=== PATIENT | male | born 1935 | race Caucasian/White ===

== ENCOUNTER 2017-04-29 07:17 | Observation (INO) | payer OTHER ==
[2017-04-29] VITALS (7 sets, daily range): BP systolic 95–169; BP diastolic 58–97; PULSE 57–62; TEMP 36.4–36.9; O2SAT 96–100; Ht 185.4 cm; Wt 103.2 kg
[~2017-04-29] VITALS: Ht 185.4 cm; Wt 103.2 kg
[~2017-04-29 07:17] MED LIST: ACET325T96 PO; ASPCH81X PO; ATEN-173 PO; CEPH500C2 PO; FOLBEE PLUS PO; LEVO1TAB34 PO; LISI-729 PO; LPT10 PO; LSN5 PO; NITR0.4S UT; NSP500 PO; NTRO1 EXT; NTRSLP4 SL; PRT40 PO; TNR25 PO; TYL325X PO; WARF5TAB90 PO; ZFRI4 IV; [UNRECOGNIZED DRUG - CODE] IV
[2017-04-29] MEDS ORDERED: ASPIRIN 81 MG CHEW PO STA (07:36)
[2017-04-29] MEDS ORDERED: NITROGLYCERIN 0.4 MG SL PER TAB CHARGE SL PRN ×2 (07:45→10:30)
--- NOTE | 2017-04-29 07:46 | EMERGENCY ROOM VISIT NOTE ---
History Report prepared by Steve: Marta Varela Under the Supervision of: Dr. Christ Schuler M.D. First contact with patient: 07:31 Chief Complaint: CARDIAC ASSESSMENT Stated Complaint: CHEST DISCOMFORT INTO NECK,SWELLING IN LFT THUMB History of Present Illness The patient is an 82 year old male who presents to the Emergency Room with complaints of persistent right sided chest pain that began one week ago that worsened last evening. He currently rates his discomfort as a 6/10 in severity. The patient reports a history of cardiac disease, noting that he has had multiple arteries stented as well as bypass surgery. He denies any previous SD. The patient states that his pain today radiates into his left neck and left jaw. He states that he took nitroglycerin for his discomfort this morning. The patient states that he takes 81 mg of aspirin daily. He denies any abdominal pain. The patient reports a history of diabetes. He denies any worsened pain with compression of his chest. The patient states that he is on Warfarin. The patient reports that 5 weeks and 3 weeks ago he had carpal tunnel surgery done on each of his hands. He states that he was off his Warfarin at those times, but states that he has now been back on the medication. The patient denies taking any of his medications this morning prior to arrival. Source of History: patient Onset: one week ago Position: chest (left) Symptom Intensity: 6/10 Timing: worsening, other (persistent) Associated Symptoms: + neck pain (left sided), No abdominal pain Note: Associated Symptoms: left jaw pain Review of Systems All systems have been listed, reviewed, and are negative other than those previously mentioned. Please see Additional Medical History Sheet. Past Medical & Surgical Medical Problems: (1) Cardiac Stent (2) Diabetes mellitus type 2 (3) Dyslipidemia (4) Gastroesophageal reflux disease (5) Hypertension (6) Paroxysmal atrial fibrillation (7) s/p coronary PCI (8) s/p lumbar microdiscectomy Surgical Problems: (1) History of carpal tunnel surgery (2) History of open heart surgery (3) S/P CABG x 3 (4) S/P total hip arthroplasty (5) S/P total knee arthroplasty Family History Diabetes mellitus Heart disease Hypertension Social History Smoking Status: Never Smoker Alcohol Use: none Drug Use: none Marital Status: Housing Status: lives with significant other Occupation Status: retired Current/Historical Medications Scheduled Aspirin (Aspirin Ec), 81 MG PO DAILY Atenolol (Tenormin), 50 MG PO DAILY Atorvastatin (Atorvastatin Calcium), 10 MG PO HS Gabapentin (Gabapentin), 300 MG PO HS Omeprazole (Prilosec), 20 MG PO DAILY Warfarin Sod (Coumadin), 2.5 MG PO 4XWK Warfarin Sodium (Coumadin), 5 MG PO MWF Scheduled PRN Acetaminophen Tab (Tylenol), 2 TAB PO Q6 PRN for Pain Epinephrine (Epipen), 0.3 MG IM UD PRN for ALLERGIC REACTION Fluticasone Propionate (Nasal) (Flonase Allergy Relief), 1 SPRAY BYRON DAILY PRN for Nasal Congestion Hydrocortisone (Topical) (Hydrocortisone), 1 APPLN TOP BID PRN for Itching Nitroglycerin (Nitrostat), 0.4 MG SL UD PRN for Chest Pain Allergies Coded Allergies: Iodine (Verified Allergy, Unknown, contraindicated SHELLFISH ALLERGY, ) Morphine (Verified Allergy, Unknown, stopped breathing, 04/29/17) TOLERATES PERCOCET Penicillins (Verified Allergy, Unknown, RASH, 04/29/17) Shellfish (Verified Allergy, Unknown, ANAPHYLAXIS, 04/29/17) Physical Exam Vital Signs Date Time Temp Pulse Resp B/P (MAP) Pulse Ox O2 Delivery O2 Flow Rate FiO2 04/29/17 09:00 51 18 132/67 100 Room Air 04/29/17 08:33 52 12 142/78 99 Room Air 04/29/17 08:01 73 20 109/78 98 Room Air 04/29/17 07:58 98 Room Air 04/29/17 07:56 65 14 128/83 99 Room Air 04/29/17 07:48 61 14 185/99 99 Room Air 04/29/17 07:36 67 04/29/17 07:24 36.9 66 17 207/105 97 Room Air Physical Exam GENERAL: Patient awake, alert, oriented x 3. Patient follows commands. Patient appears to be in mild to moderate distress, patient appears aggravated. Patient does not appear toxic. Patient is adequately hydrated and well- nourished. SKIN: No erythema, pallor, cyanosis or rash HEENT: Normal head, pupils equal, reactive to light and accommodation. Neck: Without adenopathy, no neck vein distention. CHEST: Well healed midline sternotomy scar. LUNGS: Clear to auscultation. No wheezes, no rales, no rhonchi. HEART: No murmurs. No gallops. No rubs ABDOMEN: No masses, no rebound, no hepatomegaly or splenomegaly. EXTREMITIES: No signs of trauma or infection. NEUROLOGIC: Cranial nerves II-XII within normal limits. No gross motor sensory function deficits. Medical Decision & Procedures ER Provider Diagnostic Interpretation: X ray results are stated below per my interpretation and the radiologist's interpretation. SINGLE VIEW CHEST CLINICAL HISTORY: Atypical chest pain. FINDINGS: An AP, portable, upright chest radiograph is compared to study dated 05/27/2014. The examination is degraded by portable technique and apical lordotic positioning. The patient is status post midline sternotomy. The heart is enlarged and there is atherosclerotic calcification of the thoracic aorta. The pulmonary vasculature is noncongested. Chronic interstitial thickening is similar to previous. No airspace consolidation, large pleural effusion, or pneumothorax is seen. The skeletal structures are osteopenic. The bony thorax is grossly intact. IMPRESSION: Cardiomegaly with no acute cardiopulmonary abnormality. Electronically signed by: Yovani Goff M.D. 04/29/2017 7:50 AM Dictated Date/Time: 04/29/2017 7:49 AM Laboratory Results 04/29/17 07:40 04/29/17 07:40 Test 04/29/17 07:40 Red Blood Count 4.56 M/uL (4.7-6.1) Mean Corpuscular Volume 81.1 fL (80-100) Mean Corpuscular Hemoglobin 28.3 pg (25-34) Mean Corpuscular Hemoglobin Concent 34.9 g/dl (32-36) RDW Standard Deviation 44.2 fL (36.4-46.3) RDW Coefficient of Variation 15.0 % (11.5-14.5) Mean Platelet Volume 8.9 fL (7.4-10.4) Prothrombin Time 33.1 SECONDS (9.0-12.0) Prothromb Time International Ratio 3.0 (0.9-1.1) Activated Partial Thromboplast Time 37.0 SECONDS (21.0-31.0) Partial Thromboplastin Ratio 1.4 Anion Gap 8.0 mmol/L (3-11) Est Creatinine Clear Calc Drug Dose 84.7 ml/min Estimated GFR () 93.2 Estimated GFR (Non- 80.4 BUN/Creatinine Ratio 12.2 (10-20) Calcium Level 8.8 mg/dl (8.5-10.1) Total Bilirubin 0.6 mg/dl (0.2-1) Aspartate Amino Transf (AST/SGOT) 27 U/L (15-37) Alanine Aminotransferase (ALT/SGPT) 24 U/L (12-78) Alkaline Phosphatase 70 U/L (45-117) Total Protein 8.3 gm/dl (6.4-8.2) Albumin 3.9 gm/dl (3.4-5.0) Globulin 4.4 gm/dl (2.5-4.0) Albumin/Globulin Ratio 0.9 (0.9-2) Laboratory results as stated above per my review. Medications Administered Medications (Trade) Dose Ordered Sig/Juan Antnoio Route Start Time Stop Time Status Last Admin Dose Admin Aspirin (Aspirin Chew) 81 mg NOW STAT PO 04/29/17 07:36 04/29/17 07:38 DC 04/29/17 07:51 81 MG Nitroglycerin (Nitrostat Tab) 0.4 mg Q5M PRN SL 04/29/17 07:45 04/29/17 10:44 DC 04/29/17 07:52 0.4 MG Atenolol (Tenormin Tab) 25 mg NOW ONCE PO 04/29/17 07:45 04/29/17 07:46 DC 04/29/17 07:51 25 MG Hydromorphone HCl (Dilaudid Inj) 0.5 mg Q1HWA PRN IV 04/29/17 08:30 04/29/17 10:44 DC 04/29/17 09:37 0.5 MG Ondansetron HCl (Zofran Inj) 4 mg Q1HWA PRN IV 04/29/17 08:30 04/29/17 10:44 DC 04/29/17 08:28 4 MG Hydromorphone HCl (Dilaudid Inj) 0.5 mg STK-MED ONCE .ROUTE 04/29/17 08:26 04/29/17 08:27 DC 04/29/17 08:28 0.5 MG ECG Indication: chest pain Rate (beats per minute): 72 Rhythm: sinus rhythm Findings: nonspecific-ST abn (inferior and lateral), no ectopy, other (normal axis) ED Course 0732: Past medical records reviewed. The patient was evaluated in room A9B. A complete history and physical examination was performed. 0736: Ordered Aspirin 81 mg PO. 0745: Ordered Atenolol 25 mg PO, Nitroglycerin 0.4 mg SL. 0805: Per nursing staff, the patient states that his pain went from a 5/10 to an 8/10 in severity with the nitroglycerin. 0830: Ordered Zofran Inj 4 mg IV, Dilaudid Inj 0.5 mg IV. 923: I discussed the patients case with Pipe Borges PA-C. She is going to evaluate the patient for further treatment. 925: I reevaluated the patient and he is resting comfortably. I discussed the exam findings with him and I discussed the treatment plan. He verbalized complete understanding and agreement. He is going to be evaluated for further treatment. Medical Decision Nurses notes reviewed. Medical history sheet reviewed. Differential diagnosis includes but is not limited to: I considered multiple diagnoses including myocardial infarction, chest wall pain , pericarditis, myocarditis, aortic emergencies, pulmonary embolism, congestive heart failure, GI causes, and other significant cardiopulmonary disorders. Multiple labs, EKG and imaging were obtained. Please see above. The patient has a significant past cardiac history including angioplasty and bypass surgery. He is now here with atypical chest pain with normal troponins and lab work. Despite that, I believe the patient will require further evaluation in the hospital. I discussed care with the patient, his and with the hospitalist. Medication Reconcilliation Current Medication List: was personally reviewed by me Blood Pressure Screening Patient's blood pressure: Normal blood pressure Blood pressure disposition: Did not require urgent referral Consults Time Called: [phone] Consulting Physician: Pipe Borges PA-C Returned Call: [phone] I discussed the patients case with Pipe Borges PA-C. She is going to evaluate the patient for further treatment. Impression Primary Impression: Precordial chest pain Scribe Attestation The scribe's documentation has been prepared under my direction and personally reviewed by me in its entirety. I confirm that the note above accurately reflects all work, treatment, procedures, and medical decision making performed by me. Departure Information Dispostion Being Evaluated By Hospitalist Prescriptions Atorvastatin (Atorvastatin Calcium) 10 Mg Tab 10 MG PO HS for 30 Days, TAB Prov: Katina Strange PA-C 04/29/17 Acetaminophen Tab (TYLENOL) 325 Mg Tab 2 TAB PO Q6 Y for Pain, #0 TAB Prov: Katina Strange PA-C 04/29/17 Referrals Angelo Vazquez M.D. (PCP)
--- NOTE | 2017-04-29 07:51 | DIAGNOSTIC IMAGING REPORT ---
SINGLE VIEW CHEST CLINICAL HISTORY: Atypical chest pain. FINDINGS: An AP, portable, upright chest radiograph is compared to study dated 05/27/2014. The examination is degraded by portable technique and apical lordotic positioning. The patient is status post midline sternotomy. The heart is enlarged and there is atherosclerotic calcification of the thoracic aorta. The pulmonary vasculature is noncongested. Chronic interstitial thickening is similar to previous. No airspace consolidation, large pleural effusion, or pneumothorax is seen. The skeletal structures are osteopenic. The bony thorax is grossly intact. IMPRESSION: Cardiomegaly with no acute cardiopulmonary abnormality. Electronically signed by: Yovani Goff M.D. 04/29/2017 7:50 AM Dictated Date/Time: 04/29/2017 7:49 AM
[2017-04-29 07:59] LABS: MEAN CELL VOLUME 81.1 fL (80-100); MEAN CORPUSCULAR HEMOGLOBIN 28.3 pg (25-34); MEAN CORPUSCULAR HGB CONC 34.9 g/dl (32-36); MEAN PLATELET VOLUME 8.9 fL (7.4-10.4); PLATELET COUNT 153 K/uL (130-400); RED BLOOD COUNT 4.56 M/uL (4.7-6.1)
[2017-04-29 08:04] LABS: PARTIAL THROMBOPLASTIN RATIO 1.4; PROTHROMBIN TIME (PATIENT) 33.1 SECONDS (9.0-12.0)
[2017-04-29 08:15] LABS: ALT/SGPT 24 U/L (12-78); BLOOD UREA NITROGEN 11 mg/dl (7-18); BUN/CREATININE RATIO 12.2 (10-20); CALCIUM 8.8 mg/dl (8.5-10.1); CARBON DIOXIDE 23 mmol/L (21-32); CHLORIDE 99 mmol/L (98-107); GLUCOSE 118 mg/dl (70-99); POTASSIUM 3.6 mmol/L (3.5-5.1); SODIUM 130 mmol/L (136-145)
[2017-04-29 08:20] LABS: ALB/GLOB RATIO 0.9 (0.9-2); ALKALINE PHOSPHATASE 70 U/L (45-117); AST/SGOT 27 U/L (15-37)
[2017-04-29] MEDS ORDERED: HYDROmorphone INJ 0.5 MG/0.5 ML SYR ONE (08:26)
[2017-04-29] MEDS ORDERED: HYDROmorphone INJ 1 MG/ML SYR IV PRN (08:30)
[2017-04-29] MEDS ORDERED: ONDANSETRON INJ 2 MG/ML 2 ML VIAL IV PRN ×2 (08:30→10:30)
[2017-04-29] MEDS ORDERED: OMEP20CA9 PO (09:04)
[2017-04-29] MEDS ORDERED: ASPI81TA28 PO (09:04)
[2017-04-29] MEDS ORDERED: WARF5TAB90 PO (09:04)
[2017-04-29] MEDS ORDERED: CMD25 PO (09:04)
[2017-04-29] MEDS ORDERED: IV FLUIDS COMPLETED PRN (09:45)
[2017-04-29] MEDS ORDERED: ACETAMINOPHEN 325 MG TAB PO PRN (10:30)
[2017-04-29] MEDS ORDERED: EPP3/2 IM (10:35)
[2017-04-29] MEDS ORDERED: NRN300 PO (10:35)
[2017-04-29] MEDS ORDERED: ACET325T96 PO (10:35)
[2017-04-29] MEDS ORDERED: LPT10 PO (10:35)
[2017-04-29] MEDS ORDERED: FLUT0.15 NAE (10:35)
[2017-04-29] MEDS ORDERED: ATEN50TA8 PO (10:35)
[2017-04-29] MEDS ORDERED: HYDR2.5L TOP (10:35)
[2017-04-29] MEDS ORDERED: FLUTICASONE PROPIONATE NA SPR 16 GM BTL NAE PRN (10:45)
[2017-04-29] MEDS ORDERED: HYDROCORTISONE 2.5% CR 30 GM TUBE EXT PRN (10:45)
[2017-04-29] MEDS: INSULIN ASPART 100 UNITS/ML 3 ML PEN SC SCH ×3 (11:00→21:00)
--- NOTE | 2017-04-29 11:38 | History and Physical ---
History & Physical Date & Time of Service: Apr 29, 2017 at 10:40 Chief Complaint: Chest Pain Primary Care Physician: Dannie Middleton DO History of Present Illness Source: patient, clinic records, hospital records This is an 82 y/o male with PMH of CAD s/p multiple stents, s/p 3 vessel CABG in 05/2014, PAF on Coumadin, GERD, DM type 2 diet controlled, and other problems listed below who presents to the ED with chest pain. Pt follows with Dr. Vazquez for primary care and Dr. Middleton for cardiology. Patient reports left sided chest pain with radiation to left neck x 2 weeks described as dull and constant. Pain does not worsen with exertion or eating. Then overnight around 3: 00 AM chest discomfort worsened. He took Tylenol and nitro at home without relief. In the ER patient was given nitro tab and Dilaudid without relief. He currently rates pain 6-8/10. Pt's states his complaints were similar when he needed stents in the past. His also notes he was recently more ALLEN than usual when carrying groceries. Has occasional cough but no change from baseline. Has chronic acid reflux. Pt had carpal tunnel surgery on R side 5 weeks ago and L side 3 weeks ago. Since last night around 10 pm his left thumb is swollen and painful. His states he likely overused the hand yesterday gardening and pulling weeds. He denies fever, chills, diaphoresis, dizziness, syncope, palpitations, SOB at rest, abdominal pain, N/V, acute urinary changes, calf pain, edema. Last stress test 04/22/16 was negative. Past Medical/Surgical History Medical Problems: (1) Cardiac Stent Status: Chronic (2) Diabetes mellitus type 2 Status: Chronic (3) Dyslipidemia Status: Chronic (4) Gastroesophageal reflux disease Status: Chronic (5) Hypertension Status: Chronic (6) Paroxysmal atrial fibrillation Status: Chronic (7) s/p coronary PCI Permanent Comment: multiple procedures in [place]; last 11/23/10 with BMS Status: Resolved (8) s/p lumbar microdiscectomy Status: Resolved Surgical Problems: (1) History of carpal tunnel surgery Permanent Comment: bilateral Status: Chronic (2) History of open heart surgery Status: Resolved (3) S/P CABG x 3 Permanent Comment: 05/2014; Ayo Status: Chronic (4) S/P total hip arthroplasty Status: Chronic (5) S/P total knee arthroplasty Status: Chronic Family History Diabetes mellitus Heart disease Hypertension Social History Smoking Status: Never Smoker Alcohol Use: none Drug Use: none Marital Status: Housing status: lives with significant other Occupational Status: retired Immunizations History of Influenza Vaccine: No Influenza Vaccine Date: Mar 28, 2012 History of Tetanus Vaccine?: No History of Pneumococcal: No Pneumococcal Date: Feb 15, 2003 History of Hepatitis B Vaccine: No Allergies Coded Allergies: Iodine (Verified Allergy, Unknown, contraindicated SHELLFISH ALLERGY, ) Morphine (Verified Allergy, Unknown, stopped breathing, 04/29/17) TOLERATES PERCOCET Penicillins (Verified Allergy, Unknown, RASH, 04/29/17) Shellfish (Verified Allergy, Unknown, ANAPHYLAXIS, 04/29/17) Home Medications Scheduled Aspirin (Aspirin Ec), 81 MG PO DAILY Atenolol (Tenormin), 50 MG PO DAILY Atorvastatin (Atorvastatin Calcium), 10 MG PO HS Gabapentin (Gabapentin), 300 MG PO HS Omeprazole (Prilosec), 20 MG PO DAILY Warfarin Sod (Coumadin), 2.5 MG PO 4XWK Warfarin Sodium (Coumadin), 5 MG PO MWF Scheduled PRN Acetaminophen Tab (Tylenol), 2 TAB PO Q6 PRN for Pain Celecoxib (Celebrex), 100 MG PO BID PRN for Pain Epinephrine (Epipen), 0.3 MG IM UD PRN for ALLERGIC REACTION Fluticasone Propionate (Nasal) (Flonase Allergy Relief), 1 SPRAY BYRON DAILY PRN for Nasal Congestion Hydrocortisone (Topical) (Hydrocortisone), 1 APPLN TOP BID PRN for Itching Nitroglycerin (Nitrostat), 0.4 MG SL UD PRN for Chest Pain Review of Systems Ten systems reviewed and negative except as noted in HPI. Physical Exam Vital Signs Date Time Temp Pulse Resp B/P (MAP) Pulse Ox O2 Delivery O2 Flow Rate FiO2 04/29/17 10:20 63 16 172/99 99 04/29/17 09:41 54 04/29/17 09:30 57 12 148/87 100 Room Air 04/29/17 09:29 100 Room Air 04/29/17 09:00 51 18 132/67 100 Room Air 04/29/17 08:33 52 12 142/78 99 Room Air 04/29/17 08:01 73 20 109/78 98 Room Air 04/29/17 07:58 98 Room Air 04/29/17 07:56 65 14 128/83 99 Room Air 04/29/17 07:48 61 14 185/99 99 Room Air 04/29/17 07:36 67 04/29/17 07:24 36.9 66 17 207/105 97 Room Air General Appearance: WD/WN, no apparent distress Head: normocephalic, atraumatic Eyes: normal inspection, PERRL, EOMI, sclerae normal ENT: hearing grossly normal, pharynx normal Neck: supple, trachea midline Respiratory/Chest: chest non-tender, lungs clear, normal breath sounds, no respiratory distress, no accessory muscle use Cardiovascular: regular rate, rhythm, no murmur Abdomen/GI: normal bowel sounds, non tender, soft Extremities/Musculoskelatal: no calf tenderness, no pedal edema, + pertinent finding (left thumb tender between MCP and IP joint, decreased L thumb ROM secondary to pain, no significant swelling) Neurologic/Psych: alert, normal mood/affect, oriented x 3 Skin: normal color, warm/dry, no rash (no rash on the chest), + pertinent finding (surgical incisions on palmar surface of bilateral hands appear to be healing well. no drainage or significant erythema) Diagnostics Laboratory Results Results Past 24 Hours Test 04/29/17 07:40 Range/Units White Blood Count 5.70 4.8-10.8 K/uL Red Blood Count 4.56 4.7-6.1 M/uL Hemoglobin 12.9 14.0-18.0 g/dL Hematocrit 37.0 42-52 % Mean Corpuscular Volume 81.1 80-100 fL Mean Corpuscular Hemoglobin 28.3 25-34 pg Mean Corpuscular Hemoglobin Concent 34.9 32-36 g/dl RDW Standard Deviation 44.2 36.4-46.3 fL RDW Coefficient of Variation 15.0 11.5-14.5 % Platelet Count 153 130-400 K/uL Mean Platelet Volume 8.9 7.4-10.4 fL Prothrombin Time 33.1 9.0-12.0 SECONDS Prothromb Time International Ratio 3.0 0.9-1.1 Activated Partial Thromboplast Time 37.0 21.0-31.0 SECONDS Partial Thromboplastin Ratio 1.4 Sodium Level 130 136-145 mmol/L Potassium Level 3.6 3.5-5.1 mmol/L Chloride Level 99 98-107 mmol/L Carbon Dioxide Level 23 21-32 mmol/L Anion Gap 8.0 3-11 mmol/L Blood Urea Nitrogen 11 7-18 mg/dl Creatinine 0.90 0.60-1.40 mg/dl Est Creatinine Clear Calc Drug Dose 84.7 ml/min Estimated GFR () 93.2 Estimated GFR (Non- 80.4 BUN/Creatinine Ratio 12.2 10-20 Random Glucose 118 70-99 mg/dl Calcium Level 8.8 8.5-10.1 mg/dl Total Bilirubin 0.6 0.2-1 mg/dl Aspartate Amino Transf (AST/SGOT) 27 15-37 U/L Alanine Aminotransferase (ALT/SGPT) 24 12-78 U/L Alkaline Phosphatase 70 45-117 U/L Troponin I < 0.015 0-0.045 ng/ml Total Protein 8.3 6.4-8.2 gm/dl Albumin 3.9 3.4-5.0 gm/dl Globulin 4.4 2.5-4.0 gm/dl Albumin/Globulin Ratio 0.9 0.9-2 Diagnostic Radiology SINGLE VIEW CHEST CLINICAL HISTORY: Atypical chest pain. FINDINGS: An AP, portable, upright chest radiograph is compared to study dated 05/27/2014. The examination is degraded by portable technique and apical lordotic positioning. The patient is status post midline sternotomy. The heart is enlarged and there is atherosclerotic calcification of the thoracic aorta. The pulmonary vasculature is noncongested. Chronic interstitial thickening is similar to previous. No airspace consolidation, large pleural effusion, or pneumothorax is seen. The skeletal structures are osteopenic. The bony thorax is grossly intact. IMPRESSION: Cardiomegaly with no acute cardiopulmonary abnormality. EKG sinus rhythm with 1st degree AV block, 72 bpm, T wave inversion in lead III and aVF, no significant change from prior EKG in Epic April 2016 Impression Assessment and Plan CHEST PAIN R/o ACS; known hx CAD s/p multiple stents (last in 2010) then CABG x 3 in May 2014 Initial troponin negative EKG- no significant change from April 2016 CXR-no acute findings Trend serial cardiac enzymes Repeat EKG in am Nitro paste ordered Continue aspirin, statin, beta janey, already anticoagulated on Coumadin Consult cardiology- Dr. Middleton aware HYPERTENSION BP elevated in ER Continue atenolol, nitro paste added PAROXYSMAL ATRIAL FIBRILLATION Currently in sinus rhythm, rate controlled INR =3, continue Coumadin and monitor INR LEFT THUMB PAIN Probable overuse injury Ice packs, splint ordered DM TYPE 2 Diet controlled, A1c was 6.8 in 06/2016 Random glucose 118 Monitor BSG's, Novolog sliding scale coverage Check A1c in AM CHRONIC HYPONATREMIA Na+ is 130, around his baseline Recheck PRP in am GERD Continue PPI DVT PROPHYLAXIS On Coumadin CODE STATUS Full code per my discussion with the patient Patient seen in collaboration with Dr. Fuentes. Please see her addendum. ATTENDING ADDENDUM : pt seen and examined , care co ordinated with Katina MACDONALD 82 yo m with hx of CAD s/p stent , had recent bilateral carpal tunnel surgery presents with left thumb pain , swelling , with radiation pain to left arm and left sided chest no complain of SOB , having significant pain and swelling of left thumb , focused on that minimum pain on left chest wall , reproducible with palpation pt mentions he has been gardening for -no complain of SOB , ALLEN , no chest discomfort with activity noticed his left thumb is more swollen . painful ,. difficult to bend denies of any trauma have been weeding a lot P/E: GEN; no sign of distress HEENT : sclera non icteric , PERRLA/EOMI LUNGS: CTA , no rales or wheeze HT : regular S1/S2 ABDOMEN: soft, non tender EXT : left thumb + swelling, tenderness NEURO: no focal neurological deficit , AAO x3 A/P : CHEST PAIN ; atypical for angina given extensive cardiac hx -will have cardiology eval serial cardiac markers no ischemic change noted in EKG cont all cardiac meds monitor in tele LEFT THUMB PAIN /SWELLING : s/p recent carpal tunnel surgery by Dr Byrd ordered for thumb splint pain control FULL CODE please refer to documentation by Katina Ty for detail discussion of other issues Chante Fuentes MD Advanced Directives Existing Living Will: No Existing Power of Precast Molder: No Resuscitation Status FULL RESUSCITATION VTE Prophylaxis VTE Risk Assessment Done? Y/N: Yes Risk Level: Moderate Given or contraindicated: Warfarin (Coumadin)
[2017-04-29] MEDS ORDERED: GLUCOSE 40% GEL 15 GM TUBE PO PRN (11:45)
[2017-04-29] MEDS ORDERED: GLUCAGON FOR INJ 1 MG VIAL SQ PRN (11:45)
[2017-04-29] MEDS ORDERED: DEXTROSE 50% 50 ML SYR IV PRN (11:45)
[2017-04-29] MEDS ORDERED: GLUCOSE 10 TABS/TUBE PO PRN (11:45)
[2017-04-29] MEDS ORDERED: CeleBREX 100 MG CAP PO ONE (12:45)
--- NOTE | 2017-04-29 13:03 | CARDIOLOGY CONSULTATION ---
DATE OF CONSULTATION: 04/29/2017 DATE OF CONSULTATION: 04/29/2017 REASON FOR CONSULTATION: Chest pain. HISTORY OF PRESENT ILLNESS: The patient is an 82-year-old male who I follow in my clinical practice with history of previous coronary artery bypass surgery in 2013, diabetes and paroxysmal atrial fibrillation. His heart disease has actually been stable for several years. I last saw him in December and things were going well. He does have a significant history of degenerative joint disease with multiple joint replacement surgeries and chronic pain. Recently, he had bilateral carpal tunnel surgeries completed. He states that he was having discomfort around his carpal tunnel site on the left this morning. He then began to have left shoulder and left upper chest discomfort radiating into his left neck. He describes the discomfort as severe. It seems to be worse when he moves his left upper extremity and I was able to reproduce it with palpation across the left portion of his upper chest. He denies shortness of breath. He has had no heart palpitations. His EKG shows no acute changes and his first set of cardiac markers are negative. He has been admitted for observation. ALLERGIES: IODINE, MORPHINE, PENICILLIN AND SHELLFISH. 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 He has been treated for diabetes, dyslipidemia. He also has paroxysmal atrial fibrillation which has been well controlled with beta janey. He is on chronic Coumadin. He has a history of severe degenerative joint disease with multiple joint replacements and chronic pain. SOCIAL HISTORY: Lives with his . He is a nonsmoker. FAMILY MEDICAL HISTORY: Noncontributory. REVIEW OF SYSTEMS: A 10-point review of systems is negative except for the history of chief complaint. PHYSICAL EXAMINATION: GENERAL: He is alert and oriented. VITAL SIGNS: Blood pressure is 170/90, pulse is regular at 60 beats per minute. He is afebrile. HEAD, EYES, EARS, NOSE, AND THROAT: He is normocephalic. Pupils are equal and reactive to light. Extraocular muscles are intact bilaterally. NECK: The neck veins are flat. Carotids have good upstrokes bilaterally without bruits. Thyroid is nonpalpable. RESPIRATORY: Breath sounds equal bilaterally and clear to auscultation. CARDIOVASCULAR: Heart has a regular rhythm. Normal S1, S2. No S3, S4. No cardiac rubs or murmurs. GASTROINTESTINAL: Abdomen soft, nontender, without organomegaly. EXTREMITIES: Free of edema, digit clubbing, or cyanosis. NEUROLOGIC: Grossly intact. SKIN: Warm to touch. LYMPH NODES: Negative to palpation. IMPRESSION: 1. Left arm, chest and neck discomfort, which may be musculoskeletal. 2. Rule out acute coronary syndrome. 3. Known coronary artery disease with previous coronary artery bypass. 4. Paroxysmal atrial fibrillation. 5. Diabetes mellitus. RECOMMENDATIONS: The patient is in a great deal of discomfort. He would not be a great candidate for NSAIDs due to his chronic Coumadin and history of ischemic heart disease. He may benefit from a Floyd-2 inhibitor such as Celebrex and I will start him on 200 mg daily. He will have additional cardiac markers drawn.
[2017-04-29] MEDS: NITROGLYCERIN OINT 2% 1GM PACKET EXT SCH ×2 (13:18→16:54)
[2017-04-29 13:47] LABS: CKMB/CK RATIO 1.6 (0-3.0)
[2017-04-29] MEDS ORDERED: WARFARIN SOD 5 MG TAB PO SCH (16:00)
[2017-04-29] MEDS ORDERED: MoRPHine SULFATE 2 MG/ML CARP IV PRN (18:00)
[2017-04-29] MEDS ORDERED: HYDROmorphone INJ 0.5 MG/0.5 ML SYR IV PRN (18:30)
[2017-04-29 20:01] LABS: CKMB/CK RATIO 1.4 (0-3.0)
[2017-04-29] MEDS ORDERED: GABAPENTIN 300 MG CAP PO SCH (21:00)
[2017-04-29] MEDS ORDERED: ATORVASTATIN 10 MG TAB PO SCH (21:00)
[2017-04-29] MEDS: CeleBREX 100 MG CAP PO SCH (21:18)
[2017-04-30 04:00] VITALS: O2SAT 98
[2017-04-30 04:09] VITALS: BP 159/83; PULSE 62; TEMP 36.6; O2SAT 98
[2017-04-30 06:28] LABS: HEMATOCRIT 34.1 % (42-52); MEAN CELL VOLUME 82.4 fL (80-100); MEAN PLATELET VOLUME 8.8 fL (7.4-10.4); PLATELET COUNT 142 K/uL (130-400); RED BLOOD COUNT 4.14 M/uL (4.7-6.1); WHITE BLOOD COUNT 5.12 K/uL (4.8-10.8)
[2017-04-30 06:32] LABS: INR 2.9 (0.9-1.1); PROTHROMBIN TIME (PATIENT) 32.8 SECONDS (9.0-12.0)
[2017-04-30 06:57] LABS: ESTIMATED AVERAGE GLUCOSE 134 mg/dl; HA1C FLAG Normal (Normal)
[2017-04-30 06:58] LABS: BLOOD UREA NITROGEN 14 mg/dl (7-18); BUN/CREATININE RATIO 14.9 (10-20); CALCIUM 8.6 mg/dl (8.5-10.1); CARBON DIOXIDE 27 mmol/L (21-32); CHLORIDE 99 mmol/L (98-107); CREATININE 0.94 mg/dl (0.60-1.40); GLUCOSE 113 mg/dl (70-99); SODIUM 133 mmol/L (136-145)
[2017-04-30 07:47] VITALS: BP 139/80; PULSE 53; TEMP 36.6; O2SAT 97
[2017-04-30] MEDS: CeleBREX 100 MG CAP PO SCH (07:53)
[2017-04-30 07:54] LABS: POTASSIUM 3.6 mmol/L (3.5-5.1)
[2017-04-30] MEDS: INSULIN ASPART 100 UNITS/ML 3 ML PEN SC SCH ×2 (08:51→11:00)
[2017-04-30] MEDS ORDERED: PANTOprazole SOD 40 MG TAB PO SCH (09:00)
[2017-04-30] MEDS ORDERED: ASPIRIN 81 MG ECTAB PO SCH (09:00)
--- NOTE | 2017-04-30 11:01 | Cardiology Follow-Up ---
Subjective General Date of Service: Apr 30, 2017. Chief Complaint: follow up chest pain, left thumb pain and swelling Pt evaluation today including: conversation w/ patient, physical exam History of Present Illness The patient is a 82 year old male seen in follow up with initial consultation performed by Dr Middleton. Patient states his chest discomfort is resolved. He is walked multiple laps around the unit today, with no reproduction of his chest pain. He still notes swelling at the base of his left thumb, with some degree of pain, but it is improved. The patient describes to me that he had right carpal tunnel release of proximal a 5 weeks ago and left carpal tunnel weeks #3 weeks ago. His spouse states that he was lifting 40 pound bags doing work on his property. It sounds as if he has overworked his left hand in the setting of recent surgery and now has resultant discomfort and swelling. He denies any history of gout. He does have a history of osteoarthritis. He had pain that had started at his left hand , and radiated up into his shoulder and into his chest, the chest portion is improved. Cardiac enzymes were negative 3. EKG performed today 04/30/17 revealed sinus bradycardia 52 bpm with mild nonspecific T-wave abnormality in the inferior and lateral leads, not appreciably different compared to his chronic past tracings dating back to when he had his bypass surgery. Allergies Coded Allergies: Iodine (Verified Allergy, Unknown, contraindicated SHELLFISH ALLERGY, ) Morphine (Verified Allergy, Unknown, stopped breathing, 04/29/17) TOLERATES PERCOCET Penicillins (Verified Allergy, Unknown, RASH, 04/29/17) Shellfish (Verified Allergy, Unknown, ANAPHYLAXIS, 04/29/17) Social History Smoking Status: Never Smoker Hx Tobacco Use In Past Year?: No Hx Alcohol Use - Type And Amou: No Hx Substance Use - Type And Am: No Problem List Medical Problems: (1) Precordial chest pain Status: Acute Physical Exam Vital Signs Last Vital Signs Documentation Date Time Temp Pulse Resp B/P (MAP) Pulse Ox O2 Delivery O2 Flow Rate FiO2 04/30/17 08:00 Room Air 04/30/17 07:47 36.6 53 19 139/80 (99) 97 Physical Exam Constitutional: Level of Distress: NAD ENMT: normal ENT inspection Neck: supple Lungs: Auscultation: no wheezing, no rales/crackles Cardiovascular: Heart Auscultation: RRR, no murmurs, no rubs Abdomen: Inspection & Palpation: pertinent finding Extremities: pertinent finding Neurologic: Gait & Station: pertinent finding (no focal deficits) Additional Comments: Left hand: Recent carpal tunnel incision is clean dry and intact without any erythema: The patient has notable visible swelling without erythema of the base of the left thumb. Assessment and Plan Assessment and Plan Impression: 1. Left thumb, arm, chest and neck discomfort, which is felt to be musculoskeletal in etiology. All of his discomfort has improved with the exception of the swelling and discomfort at the base of the left thumb. 2. History of coronary heart disease status post CABG 2013 3. Paroxysmal atrial fibrillation, and sinus bradycardia during hospital stay, on chronic Coumadin Plan: The patient is eager for discharge. He states he feels much improved compared to admission and has been walking in the hallway with no production of any chest discomfort to suggest angina. It was Dr. Middleton's impression that the chest and arm discomfort was reproduced yesterday during his physical exam. It is resolved today. I do long discussion with the patient and his spouse. The patient had been started on Celebrex yesterday. We discussed that nonsteroidal anti-inflammatory medications increases the risk of bleeding from Coumadin, can decrease the effectiveness of aspirin in terms of preventing coronary heart event, can cause fluid retention, hypertension, and has noted increase the risk of heart attack. His medications have to be used with a great deal of caution therefore. In a patient with debilitating arthritis type symptoms such as this patient, my advice is to use nonsteroidal anti-inflammatory agents sparingly, at the lowest effective dose, for the shortest interval of treatment as is necessary. I think it is reasonable to discharge him on Celebrex, with Protonix for GI prophylaxis. He has a follow-up visit and just over 10 days with his hand surgeon, I recommended that he calls the office on Tuesday morning and request that he moves up his hand surgery follow-up visit. I'm not convinced that this is a complication of surgery, it sounds the patient was doing activity that was very strenuous, and not within the typical post procedure recovery guidelines this early after surgery. Patient stable from my standpoint for discharge. Patient continue his prior home doses of aspirin 81 mg daily and Coumadin. He should follow up closely with the anticoagulation clinic. His kidney function is stable. Discharge with cautious use of Celebrex and Protonix. Sarah Mcpherson DO Laboratory Results Last 24 Hours Test 04/29/17 11:36 04/29/17 13:16 04/29/17 15:32 04/29/17 19:23 Bedside Glucose 112 mg/dl 115 mg/dl Total Creatine Kinase 203 U/L 170 U/L Creatine Kinase MB 3.2 ng/ml 2.4 ng/ml Creatine Kinase MB Ratio 1.6 1.4 Troponin I < 0.015 ng/ml < 0.015 ng/ml Test 04/29/17 20:11 04/30/17 05:20 04/30/17 07:02 04/30/17 07:17 Bedside Glucose 125 mg/dl 110 mg/dl White Blood Count 5.12 K/uL Red Blood Count 4.14 M/uL Hemoglobin 11.6 g/dL Hematocrit 34.1 % Mean Corpuscular Volume 82.4 fL Mean Corpuscular Hemoglobin 28.0 pg Mean Corpuscular Hemoglobin Concent 34.0 g/dl RDW Standard Deviation 46.5 fL RDW Coefficient of Variation 15.2 % Platelet Count 142 K/uL Mean Platelet Volume 8.8 fL Prothrombin Time 32.8 SECONDS Prothromb Time International Ratio 2.9 Sodium Level 133 mmol/L Potassium Level mmol/L 3.6 mmol/L Chloride Level 99 mmol/L Carbon Dioxide Level 27 mmol/L Anion Gap 7.0 mmol/L Blood Urea Nitrogen 14 mg/dl Creatinine 0.94 mg/dl Est Creatinine Clear Calc Drug Dose 81.1 ml/min Estimated GFR () 88.4 Estimated GFR (Non- 76.3 BUN/Creatinine Ratio 14.9 Random Glucose 113 mg/dl Estimated Average Glucose 134 mg/dl Hemoglobin A1c 6.3 % Calcium Level 8.6 mg/dl Magnesium Level mg/dl 2.0 mg/dl
--- NOTE | 2017-04-30 11:21 | Discharge Instructions ---
Discharge Instructions Date of Service Apr 30, 2017. Admission Reason for Admission: Chest Pain Discharge Discharge Diagnosis / Problem: LEFT THUMB PAIN POST SURGERY /CHEST PAIN - MUSKULOSKELTA, NO ANGINA Discharge Goals Goal(s): Improve disease control, Diagnostic testing, Therapeutic intervention Activity Recommendations Activity Limitations: resume your previous activity . Instructions / Follow-Up Instructions / Follow-Up HOSPITAL FOLLOW UP : 05/04/2017 10:40 AM Angelo Vazquez MD Family Practice [facility] CARDIOLOGY FOLLOW UP :06/10/2017 8:25 AM Dannie Middleton DO Cardiology, [facility] Current Hospital Diet Patient's current hospital diet: AHA Diet (Heart Healthy), Diabetes Type 2 Diet Discharge Diet Recommended Diet: AHA Diet (Heart Healthy) Pending Studies Studies pending at discharge: no Laboratory Results Hemoglobin A1c Test 04/30/17 05:20 Range/Units Estimated Average Glucose 134 mg/dl Hemoglobin A1c 6.3 H 4.5-5.6 % Medical Emergencies . Who to Call and When: Medical Emergencies: If at any time you feel your situation is an emergency, please call 911 immediately. . Non-Emergent Contact Non-Emergency issues call your: Primary Care Provider . . "Provider Documentation" section prepared by Chante Fuentes. . VTE Core Measure Inpt VTE Proph given/why not?: Warfarin (Coumadin)
[2017-04-30] MEDS ORDERED: CLB100 PO (11:29)
[2017-04-30 11:30] VITALS: BP 126/72; PULSE 67; TEMP 36.4; O2SAT 97
[2017-04-30 12:21] VITALS: BP 126/72; PULSE 67; TEMP 36.4; O2SAT 97
[2017-04-30] MEDS ORDERED: NRN300 PO (12:43)
--- NOTE | 2017-04-30 13:09 | Progress Note ---
Internal Med Progress Note Date of Service: Apr 30, 2017. Provider Documentation: SUBJECTIVE: no complain of chest pain or SOB ambulating in [place] multiple times without any SOB /ALLEN left thumb pain much improved , able to move , but swelling persists evaluated by Cardiology -stable to be discharged home form Cardiac stand point OBJECTIVE: Vital Signs-as noted below Exam: General-no sign of distress Eyes-sclera non icteric ENT-NAD Neck-neck supple, no thyromegaly . no carotid bruit Lungs-CTA, no rales or wheeze Heart-regular S1/S2 Abdomen-soft, non tender Extremities-left thumb + swelling , minimum pain Neuro-AAo x3, no focal deficit Lab data as noted below. ASSESSMENT & PLAN: LEFT THUMB PAIN : s/p recent bilat carpal tunnel surgery has been weeding a lot possible inflammation on left MCP joint due to over use no increased warmth or redness , no prior hx of gout pt started on on Celebrex yesterday -noted improvement of symptoms given underlying CAD on anticoagulation with Coumadin -pt is counselled for increased risk for [place] with Floyd -2 inhibitors pt given script for only 3 days supply of Celebrex -asked to take it with food pt will call have follow up with Orthopedics Dr Byrd on Tuesday05/02/17 CHEST PAIN/NO EVIDENCE OF ANGINA : resolved ; no complain of chest discomfort on ambulation or exertion Initial troponin negative EKG- no significant change from April 2016 CXR-no acute findings serial cardiac enzyme-negative Continue aspirin, statin, beta janey, already anticoagulated on Coumadin appreciate cardiology consult no active cardiac issue stable to be discharged home HYPERTENSION BP stable Continue atenolol, PAROXYSMAL ATRIAL FIBRILLATION Currently in sinus rhythm, rate controlled continue Coumadin INR therapeutic DM TYPE 2 Monitor BSG's, Novolog sliding scale coverage CHRONIC HYPONATREMIA Na is approx to baseline GERD Continue PPI DVT PROPHYLAXIS On Coumadin CODE STATUS Full code DISPOSITION stable to be discharged home today Vital Signs: Date Time Temp Pulse Resp B/P (MAP) Pulse Ox O2 Delivery O2 Flow Rate FiO2 04/30/17 12:21 36.4 67 19 97 Room Air 04/30/17 12:00 Room Air 04/30/17 11:30 36.4 67 19 126/72 (90) 97 Room Air 04/30/17 08:00 Room Air 04/30/17 07:47 36.6 53 19 139/80 (99) 97 Room Air 04/30/17 04:09 36.6 62 16 159/83 (108) 98 Room Air 04/30/17 04:00 98 Room Air 04/30/17 00:00 Room Air 04/29/17 23:24 36.9 61 17 144/76 (98) 97 Room Air 04/29/17 20:00 98 Room Air 04/29/17 19:29 36.9 62 22 146/79 (101) 98 Room Air 04/29/17 16:57 136/75 (95) 04/29/17 16:36 Room Air 04/29/17 15:39 36.8 57 18 95/58 (70) 96 Room Air Lab Results: Results Past 24 Hours Test 04/29/17 15:32 04/29/17 19:23 04/29/17 20:11 04/30/17 05:20 Range/Units Bedside Glucose 115 125 70-99 mg/dl Total Creatine Kinase 170 39-308 U/L Creatine Kinase MB 2.4 0.5-3.6 ng/ml Creatine Kinase MB Ratio 1.4 0-3.0 Troponin I < 0.015 0-0.045 ng/ml White Blood Count 5.12 4.8-10.8 K/uL Red Blood Count 4.14 4.7-6.1 M/uL Hemoglobin 11.6 14.0-18.0 g/dL Hematocrit 34.1 42-52 % Mean Corpuscular Volume 82.4 80-100 fL Mean Corpuscular Hemoglobin 28.0 25-34 pg Mean Corpuscular Hemoglobin Concent 34.0 32-36 g/dl RDW Standard Deviation 46.5 36.4-46.3 fL RDW Coefficient of Variation 15.2 11.5-14.5 % Platelet Count 142 130-400 K/uL Mean Platelet Volume 8.8 7.4-10.4 fL Prothrombin Time 32.8 9.0-12.0 SECONDS Prothromb Time International Ratio 2.9 0.9-1.1 Sodium Level 133 136-145 mmol/L Potassium Level 3.5-5.1 mmol/L Chloride Level 99 98-107 mmol/L Carbon Dioxide Level 27 21-32 mmol/L Anion Gap 7.0 3-11 mmol/L Blood Urea Nitrogen 14 7-18 mg/dl Creatinine 0.94 0.60-1.40 mg/dl Est Creatinine Clear Calc Drug Dose 81.1 ml/min Estimated GFR () 88.4 Estimated GFR (Non- 76.3 BUN/Creatinine Ratio 14.9 10 Random Glucose 113 70-99 mg/dl Estimated Average Glucose 134 mg/dl Hemoglobin A1c 6.3 4.5-5.6 % Calcium Level 8.6 8.5-10.1 mg/dl Magnesium Level 1.8-2.4 mg/dl Test 04/30/17 07:02 04/30/17 07:17 04/30/17 11:15 Range/Units Bedside Glucose 110 90 70-99 mg/dl Potassium Level 3.6 3.5-5.1 mmol/L Magnesium Level 2.0 1.8-2.4 mg/dl
--- NOTE | 2017-04-30 13:32 | Discharge Summary ---
Discharge Summary Date of Service Apr 30, 2017. Discharge Summary Admission Date: Apr 29, 2017 at 09:28 Discharge Date: Apr 30, 2017 Discharge Disposition: Home Principal Diagnosis: LEFT THUMB PAIN POST SURGERY /CHEST PAIN -MUSCULOSKELETAL, NO ANGINA Consultations: [facility] CARDIOLOG[facility] Medication Reconciliation New Medications: Celecoxib (Celebrex) 100 Mg Cap 100 MG PO BID PRN for Pain for 3 Days, #6 CAP TAKE WITH FOOD Continued Medications: Acetaminophen Tab (Tylenol) 325 Mg Tab 2 TAB PO Q6 PRN for Pain, #0 TAB Aspirin (Aspirin Ec) 81 Mg Tab 81 MG PO DAILY Atenolol (Tenormin) 50 Mg Tab 50 MG PO DAILY, TAB Atorvastatin (Atorvastatin Calcium) 10 Mg Tab 10 MG PO HS for 30 Days, TAB Epinephrine (Epipen) 0.3 Mg/0.3 Ml Inj 0.3 MG IM UD PRN for ALLERGIC REACTION Fluticasone Propionate (Nasal) (Flonase Allergy Relief) 50 Mcg/Act Spr 1 SPRAY [place]RON DAILY PRN for Nasal Congestion Gabapentin (Gabapentin) 300 Mg Cap 300 MG PO HS for 30 Days, #30 CAP 3 Refills (This prescription has been renewed) Hydrocortisone (Topical) (Hydrocortisone) 2.5 % Lot 1 APPLN TOP BID PRN for Itching for 10 Days, #60 ML Nitroglycerin (Nitrostat) 0.4 Mg/1 Tab Subl 0.4 MG SL UD PRN for Chest Pain for 10 Days Omeprazole (Prilosec) 20 Mg Cap 20 MG PO DAILY Warfarin Sod (Coumadin) 2.5 Mg Tab 2.5 MG PO 4XWK 1/2 OF A 5 MG TABLET TUE, , , SAT Warfarin Sodium (Coumadin) 5 Mg Tab 5 MG PO MWF Admission Information HPI (per Admitting provider): This is an 82 y/o male with PMH of CAD s/p multiple stents, s/p 3 vessel CABG in 05/2014, PAF on Coumadin, GERD, DM type 2 diet controlled, and other problems listed below who presents to the ED with chest pain. Pt follows with Dr. Vazquez for primary care and Dr. Middleton for cardiology. Patient reports left sided chest pain with radiation to left neck x 2 weeks described as dull and constant. Pain does not worsen with exertion or eating. Then overnight around 3: 00 AM chest discomfort worsened. He took Tylenol and nitro at home without relief. In the ER patient was given nitro tab and Dilaudid without relief. He currently rates pain 6-02/17. Pt's states his complaints were similar when he needed stents in the past. His also notes he was recently more ALLEN than usual when carrying groceries. Has occasional cough but no change from baseline. Has chronic acid reflux. Pt had carpal tunnel surgery on R side 5 weeks ago and L side 3 weeks ago. Since last night around 10 pm his left thumb is swollen and painful. His states he likely overused the hand yesterday gardening and pulling weeds. He denies fever, chills, diaphoresis, dizziness, syncope, palpitations, SOB at rest, abdominal pain, N/V, acute urinary changes, calf pain, edema. Last stress test 04/22/16 was negative. Physical Exam (per Admitting): General Appearance: WD/WN, no apparent distress Head: normocephalic, atraumatic Eyes: normal inspection, PERRL, EOMI, sclerae normal ENT: hearing grossly normal, pharynx normal Neck: supple, trachea midline Respiratory/Chest: chest non-tender, lungs clear, normal breath sounds, no respiratory distress, no accessory muscle use Cardiovascular: regular rate, rhythm, no murmur Abdomen/GI: normal bowel sounds, non tender, soft Extremities/Musculoskelatal: no calf tenderness, no pedal edema, + pertinent finding (left thumb tender between MCP and IP joint, decreased L thumb ROM secondary to pain, no significant swelling) Neurologic/Psych: alert, normal mood/affect, oriented x 3 Skin: normal color, warm/dry, no rash (no rash on the chest), + pertinent finding (surgical incisions on palmar surface of bilateral hands appear to be healing well. no drainage or significant erythema) Hospital Course LEFT THUMB PAIN : s/p recent bilat carpal tunnel surgery has been weeding a lot possible inflammation on left MCP joint due to over use no increased warmth or redness , no prior hx of gout pt started on on Celebrex yesterday -noted improvement of symptoms given underlying CAD on anticoagulation with Coumadin -pt is counselled for increased risk for [place] with Floyd -2 inhibitors pt given script for only 3 days supply of Celebrex -asked to take it with food pt will call have follow up with Orthopedics Dr Byrd on Tuesday05/02/17 CHEST PAIN/NO EVIDENCE OF ANGINA : resolved ; no complain of chest discomfort on ambulation or exertion Initial troponin negative EKG- no significant change from April 2016 CXR-no acute findings serial cardiac enzyme-negative Continue aspirin, statin, beta janey, already anticoagulated on Coumadin appreciate cardiology consult no active cardiac issue stable to be discharged home HYPERTENSION BP stable Continue atenolol, PAROXYSMAL ATRIAL FIBRILLATION Currently in sinus rhythm, rate controlled continue Coumadin INR therapeutic DM TYPE 2 Monitor BSG's, Novolog sliding scale coverage CHRONIC HYPONATREMIA Na is approx to baseline GERD Continue PPI DVT PROPHYLAXIS On Coumadin CODE STATUS Full code DISPOSITION stable to be discharged home today Discharge Instructions Discharge Instructions Date of Service Apr 30, 2017. Admission Reason for Admission: Chest Pain Discharge Discharge Diagnosis / Problem: LEFT THUMB PAIN POST SURGERY /CHEST PAIN - MUSCULOSKELETAL, NO ANGINA Discharge Goals Goal(s): Improve disease control, Diagnostic testing, Therapeutic intervention Activity Recommendations Activity Limitations: resume your previous activity . Instructions / Follow-Up Instructions / Follow-Up HOSPITAL FOLLOW UP : 05/04/2017 10:40 AM Angelo Vazquez MD Family Practice [facility] CARDIOLOGY FOLLOW UP :06/10/2017 8:25 AM Dannie Middleton, Cardiology, [facility] Current Hospital Diet Patient's current hospital diet: AHA Diet (Heart Healthy), Diabetes Type 2 Diet Discharge Diet Recommended Diet: AHA Diet (Heart Healthy) Pending Studies Studies pending at discharge: no Laboratory Results Hemoglobin A1c Test 04/30/17 05:20 Range/Units Estimated Average Glucose 134 mg/dl Hemoglobin A1c 6.3 H 4.5-5.6 % Medical Emergencies . Who to Call and When: Medical Emergencies: If at any time you feel your situation is an emergency, please call 911 immediately. . Non-Emergent Contact Non-Emergency issues call your: Primary Care Provider . . "Provider Documentation" section prepared by Chante Fuentes. . VTE Core Measure Inpt VTE Proph given/why not?: Warfarin (Coumadin) Additional Copies To Angelo Vazquez M.D., Michael G., DO
[2017-04-30] MEDS ORDERED: WARFARIN SOD 2.5 MG TAB PO SCH (16:00)
== END 2017-04-30 12:55 | disposition home or self-care (01) ==
LOC: C.EDB 07:19 → C.2T 09:28 → ENRESERV 09:40
PROVIDERS: ADMIT Hospitalist; ATTEND Hospitalist
DX: R07.9 Chest pain, unspecified (principal); M79.645 Pain in left finger(s); I48.0 Paroxysmal atrial fibrillation; I25.10 Atherosclerotic heart disease of native coronary artery without angina pectoris; I10 Essential (primary) hypertension; E78.5 Hyperlipidemia, unspecified; E11.9 Type 2 diabetes mellitus without complications; E87.1 Hypo-osmolality and hyponatremia; K21.9 Gastro-esophageal reflux disease without esophagitis; Z95.1 Presence of aortocoronary bypass graft; Z95.5 Presence of coronary angioplasty implant and graft; Z79.01 Long term (current) use of anticoagulants; Z79.82 Long term (current) use of aspirin; Z79.899 Other long term (current) drug therapy

== ENCOUNTER → 2017-09-05 | Outpatient (CLI) | payer OTHER ==
[~2017-09-05] MED LIST changes: +ACET-1693 PO; -ACET325T96 PO; -ASPCH81X PO; +ASPI81TA28 PO; -ATEN-173 PO; +ATEN50TA8 PO; -CEPH500C2 PO; +CLB100 PO; +CMD25 PO; +EPP3/2 IM; +FLUT0.15 NAE; -FOLBEE PLUS PO; +HYDR2.5L TOP; -LEVO1TAB34 PO; -LISI-729 PO; -LSN5 PO; -NITR0.4S UT; +NRN300 PO; -NSP500 PO; -NTRO1 EXT; +OMEP20CA9 PO; -PRT40 PO; -TNR25 PO; -TYL325X PO; -ZFRI4 IV; -[UNRECOGNIZED DRUG - CODE] IV
--- NOTE | 2017-09-05 13:48 | DIAGNOSTIC IMAGING REPORT ---
MRI LUMBAR SPINE W/O CONTRAST CLINICAL HISTORY: Severe lower back pain. Spinal stenosis. TECHNIQUE: Sagittal and axial T1, T2 and STIR images were obtained. COMPARISON STUDY: Outside conventional radiographic study dated 08/23/2017 OBSERVATIONS: The vertebral bodies and posterior elements appear intact. There is no abnormal bony signal present to suggest a marrow replacement process. Although not imaged on axial sequences, there is a suspected disc protrusion and spinal stenosis the T11-12 level L1-2: There is a mild circumferential disc bulge. There is no significant spinal or foraminal stenosis L2-3: There is a circumferential disc bulge. There is facet joint ligamentous hypertrophy. There is severe spinal stenosis. There is minor bilateral subforaminal narrowing L3-4: There is a circumferential disc bulge. There is facet joint ligamentous hypertrophy. There is severe spinal stenosis. There is mild right-sided foraminal narrowing and moderate left-sided foraminal narrowing L4-5: There is a circumferential disc bulge. There is no significant spinal stenosis. There is facet joint arthropathy. There is mild bilateral foraminal narrowing L5-S1: No disc protrusions or extrusions. No evidence of spinal canal or neural foraminal compromise. There is facet joint arthropathy The conus medullaris and cauda equina appear normal. IMPRESSION: 1. Moderately advanced multilevel spondylitic changes 2. Severe spinal stenosis the L2-3 and L3-4 levels 3. There is also suspected spinal stenosis at the T11-12 level. Electronically signed by: Gerard Colby M.D. 09/05/2017 1:47 PM Dictated Date/Time: 09/05/2017 1:42 PM
== END | disposition home or self-care (01) ==
LOC: C.MRIBC 12:39
PROVIDERS: ATTEND Orthopaedic Surgery Orthopaedic Surgery of the Spine
DX: M48.061 Spinal stenosis, lumbar region without neurogenic claudication (principal)

== ENCOUNTER 2017-09-15 05:29 | Observation (INO) | payer OTHER ==
--- NOTE | 2017-09-12 14:39 | PAT Medication Instructions ---
Service Date Sep 12, 2017. Current Home Medication List Acetaminophen (Tylenol Arthritis Ext Rel), 1,300 MG PO Q8H PRN for PRN Aspirin (Aspirin Ec), 81 MG PO QAM Atenolol (Tenormin), 50 MG PO QAM Atorvastatin (Lipitor), 10 MG PO HS Epinephrine (Epipen), 0.3 MG IM UD PRN for ALLERGIC REACTION Fluticasone Propionate (Nasal) (Flonase Allergy Relief), 1 SPRAY BYRON DAILY PRN for Nasal Congestion Hydrocortisone (Topical) (Hydrocortisone), 1 APPLN TOP BID PRN for Itching Nitroglycerin (Nitrostat), 0.4 MG UT PRN Omeprazole (Prilosec), 20 MG PO QAM Tamsulosin HCl (Tamsulosin HCl), 0.4 MG PO QPM Warfarin Sodium (Coumadin), 2.5-5 MG PO QPM Medication Instructions For Your Scheduled Surgery - Check with surgeon and prescribing physician for instructions: Warfarin Sodium (Coumadin), 2.5-5 MG PO QPM - Hold the following medications 24 hours prior to surgery: Hydrocortisone (Topical) (Hydrocortisone), 1 APPLN TOP BID PRN for Itching - Take the following medications the morning of surgery with a sip of water: Nitroglycerin (Nitrostat), 0.4 MG UT PRN (if needed) Omeprazole (Prilosec), 20 MG PO QAM Epinephrine (Epipen), 0.3 MG IM UD PRN for ALLERGIC REACTION (if needed) Fluticasone Propionate (Nasal) (Flonase Allergy Relief), 1 SPRAY BYRON DAILY PRN for Nasal Congestion (if needed) Aspirin (Aspirin Ec), 81 MG PO QAM Atenolol (Tenormin), 50 MG PO QAM Acetaminophen (Tylenol Arthritis Ext Rel), 1,300 MG PO Q8H PRN for PRN (okay to take up to 4 hours prior to surgery if needed) - Take the following medications as scheduled the night before surgery: Tamsulosin HCl (Tamsulosin HCl), 0.4 MG PO QPM Nitroglycerin (Nitrostat), 0.4 MG UT PRN (if needed) Epinephrine (Epipen), 0.3 MG IM UD PRN for ALLERGIC REACTION (if needed) Fluticasone Propionate (Nasal) (Flonase Allergy Relief), 1 SPRAY BYRON DAILY PRN for Nasal Congestion (if needed) Atorvastatin (Lipitor), 10 MG PO HS Acetaminophen (Tylenol Arthritis Ext Rel), 1,300 MG PO Q8H PRN for PRN (if needed) If you have any questions please call us at [phone] or [phone] or [phone]
[2017-09-12 15:41] LABS: BASO % 0.2 %; BASO ABS # 0.01 K/uL (0-0.2); EOS % 6.1 %; HEMOGLOBIN 11.2 g/dL (14.0-18.0); IG# 0.02 K/uL (0.00-0.02); LYMPH % 31.9 %; LYMPH ABS # 1.56 K/uL (1.2-3.4); MEAN CELL VOLUME 82.9 fL (80-100); MEAN CORPUSCULAR HEMOGLOBIN 27.3 pg (25-34); MEAN CORPUSCULAR HGB CONC 32.9 g/dl (32-36); MEAN PLATELET VOLUME 8.3 fL (7.4-10.4); MONO % 13.7 %; MONO ABS # 0.67 K/uL (0.11-0.59); NEUT % 47.7 %; NEUT ABS # 2.33 K/uL (1.4-6.5); PLATELET COUNT 195 K/uL (130-400); RED CELL DISTRIBUTION WIDTH CV 14.6 % (11.5-14.5); RED CELL DISTRIBUTION WIDTH SD 44.6 fL (36.4-46.3); WHITE BLOOD COUNT 4.89 K/uL (4.8-10.8)
[2017-09-12 15:50] LABS: CALCIUM 8.9 mg/dl (8.5-10.1); INR 1.9 (0.9-1.1); POTASSIUM 4.7 mmol/L (3.5-5.1); PTT PATIENT 31.5 SECONDS (21.0-31.0)
--- NOTE | 2017-09-14 13:29 | HISTORY & PHYSICAL EXAMINATION ---
DATE OF ADMISSION: 09/15/2017 PREOPERATIVE HISTORY AND PHYSICAL He is being preoped for a laminectomy L2-L4, lumbar spine. HISTORY OF PRESENT ILLNESS: Mr. Ch is a delightful gentleman. He is 82 years of age. She has ongoing progressive neurological issues, weakness, pain to this lower extremity. He has profound stenosis, fortunately no bowel or bladder compromise. He has failed conservative measures and there is no room for any more conservative care. PAST MEDICAL HISTORY: Positive for angina, hypertension, high cholesterol arrhythmias. He has had bypass surgery, angioplasty. No history of diabetes, anemias, or cancer. Lungs are negative as well for asthma or wheezing. He has never had a stroke. He has arthritis and some spine issues and neck problems, acid reflux, enlarged prostate. PAST SURGICAL HISTORY: Stent replacement, left knee replacement, right hip replacement, open heart bypass surgery. ALLERGIES: MORPHINE, IODINE, PENICILLIN, SHELLFISH. MEDICATIONS: Include atenolol, aspirin, warfarin, statin, and hydrocodone. REVIEW OF SYSTEMS: Denies any blurred vision, double vision; denies tinnitus, vertigo, and stroke. Denies chest pain, palpitations. Currently, denies nausea, vomiting, urgency, frequency, dysuria. No shortness of breath, asthma. No bowel and bladder incontinence. Major complaints include back, buttock, lower extremity difficulty as described in history of present illness. PHYSICAL EXAMINATION: GENERAL: He is 6 feet 1 inch. He is 220 pounds. He is in distress; cannot walk, stand appropriately. VITAL SIGNS: Blood pressure 130/80, pulse 80, respiration rate 16, temperature 97.4. HEENT: Pupils are equally reactive to light and accommodation. Ear, nose and throat clear. CARDIAC: Normal S1, S2, no S3. LUNGS: Clear to auscultation. ABDOMEN: Bowel sounds present in all quadrants. EXTREMITIES: Demonstrate weakness with dorsiflexion, plantarflexion, push off strength, gait abnormality, bent over and kyphosis. IMAGES: Demonstrate a pinpoint spinal canal, L2-L3 and L3-L4, lumbar spine. 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 DISPOSITION: Includes lumbar laminectomy, L2-L4 of the lumbar spine.
[2017-09-15] VITALS (10 sets, daily range): BP systolic 147–186; BP diastolic 76–94; PULSE 61–72; TEMP 36.3–37; O2SAT 98–100; Ht 185.4 cm; Wt 103.4 kg
[~2017-09-15] VITALS: Ht 185.4 cm; Wt 103.4 kg
[~2017-09-15 05:29] MED LIST changes: -ACET-1693 PO; +ACET1TAB84 PO; -CLB100 PO; -CMD25 PO; +FLM4 PO; -NRN300 PO; +NTRGSL/4 UT; -NTRSLP4 SL
[2017-09-15] MEDS ORDERED: LACTATED RINGER'S 1000ML 1,000 ML IV SCH (06:00)
[2017-09-15] MEDS ORDERED: CLINDAMYCIN 600 MG/54 ML D5W 54 ML IV SCH (06:00)
[2017-09-15] MEDS ORDERED: ACETAMINOPHEN IV 1000MG/100ML IV SCH (06:00)
[2017-09-15] MEDS ORDERED: NSS 1000ML IV SCH (06:00)
[2017-09-15 06:28] LABS: INR 1.4 (0.9-1.1); PTT PATIENT 29.4 SECONDS (21.0-31.0)
[2017-09-15] MEDS ORDERED: MIDAZOLAM HCL 1 MG/ML 2ML VIAL ONE (06:31)
[2017-09-15] MEDS ORDERED: ROCURONIUM BROMIDE 10 MG/ML 5 ML VIAL IV ONE (06:36)
[2017-09-15] MEDS ORDERED: PROPOFOL IV EMULSION 10 MG/ML 20 ML VIAL IV ONE (06:36)
[2017-09-15] MEDS ORDERED: LIDOCAINE HCL 2% 2 ML VIAL (20MG/ML) ONE (06:36)
[2017-09-15] MEDS ORDERED: ONDANSETRON INJ 2 MG/ML 2 ML VIAL ONE (06:36)
[2017-09-15] MEDS ORDERED: FENTANYL CITRATE INJ 50 MCG/1 ML 2 ML VIAL ONE ×2 (06:36→08:52)
[2017-09-15] MEDS ORDERED: BACITRACIN 50000 UNIT VIAL ONE (07:11)
[2017-09-15] MEDS ORDERED: THROMBIN FOR SOLN 20000 UNIT KIT ONE (07:11)
[2017-09-15] MEDS ORDERED: VANCOMYCIN HCL 1000MG/20ML VIAL ONE (07:11)
[2017-09-15] MEDS ORDERED: GELATIN SPONGE SZ 100 ONE (07:11)
[2017-09-15] MEDS ORDERED: BUPIVACAINE/EPINEPHRINE 0.5% MPF 1:200,000 30 ML VIAL ONE ×2 (07:12→07:13)
--- NOTE | 2017-09-15 07:21 | History & Physical Bridge Note ---
H&P Re-Evaluation Bridge Note: I have examined the patient, reviewed the History & Physical and in the interval since the performance of the History & Physical I have noted the following changes of clinical significance: No changes noted
[2017-09-15] MEDS ORDERED: FENTANYL CITRATE INJ 50 MCG/1 ML 2 ML VIAL IV PRN (07:30)
[2017-09-15] MEDS ORDERED: LABETALOL HCL IV 5 MG/ML 20ML IV PRN (07:30)
[2017-09-15] MEDS ORDERED: EpHEDrine SULFATE INJ 50 MG/ML AMP IV PRN (07:30)
[2017-09-15] MEDS ORDERED: MEPERIDINE HCL 25 MG/ML CARP IV PRN (07:30)
[2017-09-15] MEDS ORDERED: ATROPINE SULFATE 0.1 MG/ML 5ML SYR IV PRN (07:30)
[2017-09-15] MEDS ORDERED: HYDROmorphone INJ 1 MG/ML SYR IV PRN ×2 (07:30→09:45)
[2017-09-15] MEDS ORDERED: ONDANSETRON INJ 2 MG/ML 2 ML VIAL IV PRN ×2 (07:30→09:45)
[2017-09-15] MEDS ORDERED: SODIUM CHLORIDE 0.9% INJ 10 ML VIAL ONE (08:44)
[2017-09-15] MEDS ORDERED: EpHEDrine SULFATE INJ 50 MG/ML AMP ONE (08:44)
[2017-09-15] MEDS ORDERED: NEOSTIGMINE METHYLSULFATE 1 MG/ML 10ML VIAL ONE (08:44)
[2017-09-15] MEDS ORDERED: GLYCOPYRROLATE INJ 0.2 MG/ML VIAL ONE (08:44)
--- NOTE | 2017-09-15 09:38 | [facility] Post Operative Brief Note ---
Immediate Operative Summary Operative Date Sep 15, 2017. Pre-Operative Diagnosis Severe stenosis lumbar spine L2 to L4 Post-Operative Diagnosis Severe stenosis lumbar spine L2 to L5 Procedure(s) Performed L2 to L5 Laminectomy and Fusion Surgeon Dr. Cecil Harrell Continuous Vulcanizing Machine Operator Surgeon(s) Bryce Dobson PA-C Estimated Blood Loss 150mL Findings Consistent with Post-Op Diagnosis Specimens None, Per Surgeon Anesthesia Type General Complication(s) none Disposition Disposition: Recovery Room / PACU
[2017-09-15] MEDS ORDERED: LORAZEPAM 1 MG TAB PO PRN (09:45)
[2017-09-15] MEDS ORDERED: OXYCODONE/ACETAMINOPHEN 5-325 TAB PO PRN ×2 (09:45)
[2017-09-15] MEDS ORDERED: PROMETHAZINE HCL INJ 12.5 MG in SODIUM CHLORIDE 0.9% 50ML 50 ML IV PRN (09:45)
[2017-09-15] MEDS ORDERED: ACETAMINOPHEN 325 MG TAB PO PRN (09:45)
[2017-09-15] MEDS ORDERED: LORAZEPAM INJ 1 MG in SYRINGE 0 ML IV PRN (09:45)
[2017-09-15] MEDS ORDERED: METOCLOPRAMIDE HCL INJ 5 MG/ML 2 ML VIAL IV PRN (09:45)
[2017-09-15] MEDS ORDERED: MAGNESIUM HYDROXIDE SUSP 30 ML UDC PO PRN (09:45)
--- NOTE | 2017-09-15 09:53 | OPERATIVE REPORT ---
REVISED REPORT DATE OF OPERATION: 09/15/2017 PREOPERATIVE DIAGNOSIS: Severe spinal stenosis L2, L3, L4 and L5. POSTOPERATIVE DIAGNOSIS: Same. PROCEDURE: 1. Include a laminectomy, L2, L3, L4 and L5, foraminotomies, partial facetectomies. 2. Posterior lateral fusion L2-4. SURGEON: Cecil Harrell DO. WASH OIL PUMP OPERATOR: Bryce Dobson PA-C. COMPLICATIONS: No complications. BLOOD LOSS: 150 mL. DESCRIPTION OF PROCEDURE: The patient was taken to the operating room, a general intubated anesthetic provided to the patient, placed prone, prepped and draped sterile. Formal timeout taken. We made a skin incision from L2 to the L5 vertebrae. I initially thought preoperatively L2-4 be appropriate. I also went down of the lamina 5, felt the 5th nerve root was severely compressed. A skin incision, fascial incision, putting a deep self-retaining retractor. He had very severe stenosis, very deep wound as well. We meticulously decompressed the neural canal with Kerrisons, a vincent, other instruments to get the nerve roots free of obstruction. We made sure each and every nerve root was freed from 2 down to 5 particular on these most symptomatic side, which is the right hand side. I probed each and every nerve root. I looked at each and every nerve. I thought they were free of obstruction. We then irrigated thoroughly. We placed some bone graft out of the transverse process and facet joints for a transverse process fusion. We closed fascia, fascia over vancomycin powder with #1 Vicryl, 2-0 and 3-0 nylon on the skin. Sterile dressings applied. The patient returned to PACU stable. No apparent complications. I attest to the content of the Intraoperative Record and any orders documented therein. Any exceptions are noted below. ADDENDUM Coding query The question was on bone graft used for his spinal fusion; it would be morcellized bone graft. VARUN
[2017-09-15] MEDS ORDERED: DEXAMETHASONE SOD INJ 4 MG/ML VIAL ONE (09:57)
[2017-09-15] MEDS ORDERED: NITROGLYCERIN 0.4 MG SL PER TAB CHARGE UT PRN (10:00)
[2017-09-15] MEDS ORDERED: EPINEPHRINE ADULT AUTO-INJECT 0.3 MG SYR IM PRN (10:00)
--- NOTE | 2017-09-15 10:11 | Anesthesiology Progress Note ---
Anesthesia Post Op Note Date & Time Sep 15, 2017 at 10:11 Vital Signs Pain Intensity: 0 Vital Signs Past 12 Hours Date Time Temp Pulse Resp B/P (MAP) Pulse Ox O2 Delivery O2 Flow Rate FiO2 09/15/17 10:05 86 16 143/73 98 Oxymask 10 09/15/17 09:55 93 16 144/82 100 Oxymask 10 09/15/17 09:45 36.2 97 16 143/70 100 Oxymask 10 09/15/17 06:05 37 61 18 147/77 98 Room Air Notes Mental Status: alert / awake / arousable, participated in evaluation Pt Amnestic to Procedure: Yes Nausea / Vomiting: adequately controlled Pain: adequately controlled Airway Patency, RR, SpO2: stable & adequate BP & HR: stable & adequate Hydration State: stable & adequate Anesthetic Complications: no major complications apparent
[2017-09-15 10:29] LABS: HEMATOCRIT 31.2 % (42-52); HEMOGLOBIN 10.6 g/dL (14.0-18.0)
[2017-09-15] MEDS ORDERED: OXYCODONE/ACETAMINOPHEN 5-325 TAB ONE (11:23)
[2017-09-15] MEDS ORDERED: HYDROmorphone INJ 2 MG/ML SYR/VIAL IV PRN (11:30)
[2017-09-15] MEDS: SODIUM CHLORIDE 0.9% 1000ML 1,000 ML IV SCH ×2 (11:31→23:21)
[2017-09-15] MEDS ORDERED: IV FLUIDS COMPLETED PRN (12:45)
[2017-09-15] MEDS: CLINDAMYCIN IV 600 MG in DEXTROSE 5% 50ML 50 ML IV SCH ×2 (13:40→20:52)
[2017-09-15] MEDS: HYDROmorphone INJ 1 MG/ML SYR IV PRN (13:49)
--- NOTE | 2017-09-15 14:04 | DIAGNOSTIC IMAGING REPORT ---
SPINE ONE VIEW, ANY LEVEL HISTORY: Laminectomy. FLUOROSCOPY TIME: 2 seconds. FINDINGS: Intraoperative fluoroscopy was provided for the lumbar spine. 1 fluoroscopic spot images were obtained. IMPRESSION: Fluoroscopy provided for a lumbar laminectomy. The above report was generated using voice recognition software. It may contain grammatical, syntax or spelling errors. Electronically signed by: Elvis Damon M.D. 09/15/2017 2:02 PM Dictated Date/Time: 09/15/2017 2:02 PM
[2017-09-15] MEDS: DEXAMETHASONE INJ 10 MG in SYRINGE 0 ML IV SCH (17:55)
[2017-09-15] MEDS ORDERED: ATORVASTATIN 10 MG TAB PO SCH (21:00)
[2017-09-15] MEDS ORDERED: TAMSULOSIN HCL 0.4 MG CAP PO SCH (21:00)
[2017-09-16] VITALS (7 sets, daily range): BP systolic 110–155; BP diastolic 62–86; PULSE 54–80; TEMP 36.4–36.8; O2SAT 94–100
[2017-09-16] MEDS: DEXAMETHASONE INJ 10 MG in SYRINGE 0 ML IV SCH ×3 (01:43→17:53)
[2017-09-16] MEDS ORDERED: BISACODYL 10 MG SUPP PR PRN (06:00)
[2017-09-16] MEDS ORDERED: NURSING VERBAL MED ORDER ONE (06:00)
[2017-09-16] MEDS ORDERED: BISACODYL 5 MG TABEC PO PRN (06:00)
[2017-09-16] MEDS: HYDROmorphone INJ 1 MG/ML SYR IV PRN (06:02)
[2017-09-16] MEDS ORDERED: POLYETHYLENE (MIRALAX) 17 GM PACK PO SCH (09:00)
[2017-09-16] MEDS ORDERED: ASPIRIN 81 MG ECTAB PO SCH (09:00)
--- NOTE | 2017-09-16 09:30 | Discharge Instructions ---
Discharge Instructions Date of Service Sep 16, 2017. Admission Reason for Admission: Spinal Stenosis Discharge Discharge Diagnosis / Problem: ssame Discharge Goals Goal(s): Improve function Activity Recommendations Activity Limitations: as noted below Lifting Limitations: gradually increase as tolerated . Current Hospital Diet Patient's current hospital diet: Regular Diet Discharge Diet Recommended Diet: Regular Diet Procedures Procedures Performed: L2 to L5 Laminectomy and Fusion Pending Studies Studies pending at discharge: no Medical Emergencies . Who to Call and When: Medical Emergencies: If at any time you feel your situation is an emergency, please call 911 immediately. . Non-Emergent Contact Non-Emergency issues call your: Primary Care Provider . "Provider Documentation" section prepared by Cecil Harrell. .
--- NOTE | 2017-09-16 09:32 | Discharge Instructions ---
Discharge Instructions Date of Service Sep 16, 2017. Admission Reason for Admission: Spinal Stenosis Discharge Discharge Diagnosis / Problem: SAME Discharge Goals Goal(s): Improve function Activity Recommendations Activity Limitations: as noted below Lifting Limitations: no more than 5 pounds Exercise/Sports Limitations: until after follow-up appointment May Resume Sexual Activity: after follow-up appointment Shower/Bathe: keep incision dry CAREFUL WITH BENDING TWISTING . Instructions / Follow-Up Instructions / Follow-Up MEDICATIONS: Please take your prescriptions as instructed at your pre-op appointment. SPECIAL CARE: The following information is intended to answer some of the common questions and concerns regarding your surgery. Each patient is an individual and receives individual counselling throughout the course of treatment, from diagnosis to surgery all the way through recovery. What follows is not an exhaustive list, but should be a useful guide to some of the common questions and concerns patients have regarding their surgeries. These are not provided to keep you from calling us; rather, they give you something accurate and concrete to reference as you recover from your procedure. If you need us, we are available to you. As always, if you are not sure about something, call us at [phone]. MEDICAL EMERGENCIES: For these conditions, call 911 or go to your local hospital-based Emergency Department - not [facility] or equivalent. * Paralysis * Severe chest pain or difficulty breathing * Swelling or redness of either leg Spine procedures can be rather complex and though complications are rare, they do occur. In such cases, effective advice regarding emergency situations cannot always be addressed over the telephone. You may be referred to the emergency department for more effective management of your problem. Activity Limitations: It is important to give your body time to heal, so please limit your activities : * In general, don't do anything that moves your spine too much. You should avoid contact sports, twisting or heavy lifting while you recover. * 5-10 pounds is all you should attempt to lift. * You should not plan on driving for approximately 3 weeks and you should avoid traveling more than 30-45 minutes at a time. Longer trips should be broken down with walking breaks spaced appropriately. * Physical therapy is not usually required. * Walking and good posture practices will help you recover and regain your function. * Avoid straining or sudden changes in position. * In general, the goal is to take it easy and recover. Don't cause any new problems. Just relax. Showers: * Do not take a bath, use a Jacuzzi or hot tub or otherwise submerge your incision. * It is usually safe to take a shower 4-5 days after your surgery. * Your incision does not require any special creams or ointments. * Simply clean it with soap and water, dry and re-dress with a clean bandage afterwards. Incision: * Keep incision clean, dry and protected until your first follow-up appointment. * Some amount of drainage and redness is normal. Any drainage should be fairly clear and not have a foul odor. * If you feel anything is wrong or you have excessive drainage, please call us. * Your stitches and ke will be removed 10-14 days after your surgery. At the time of your first post-op visit. * Neck surgeries are typically closed with a suture underneath the skin. The steri-strips over the incision should be maintained until we see you in the office. Bracing: * You may be provided with a back or neck brace to encourage good posture and prevent injury. It will remind you not to do too much as you heal and will alert others to the fact that you have had a surgery. * Back braces may be removed for showers and when you are resting at home. They must be worn when you are walking around for any period of time or for travel. * For neck surgery, you will likely be provided with two cervical collars. The soft collar ([place] or foam rubber) is worn most commonly throughout the day and while sleeping. The plastic collar (provided at the hospital) is for showering/bathing. * Except while eating, collars should remain in place. More specifically, bracing is provided for a purpose and should be worn. * Please obtain your brace or collars prior to your operation and bring them to the hospital with you on the day of surgery. * You should also bring your collars to your post-op appointment with Dr. Harrell. You should always take good care of your body and practice healthy habits, especially following surgery. You should: * Follow your doctor's treatment plan * Sit and stand properly with good posture (ears over shoulders, shoulders over hips) Don't slouch * Learn to lift correctly * Exercise regularly (low-impact aerobic exercise is especially good, but check with your doctor first) * Generally, be up and walking for 5-10 minutes at a time at least 3-4 times per day from the day you get home * Increasing walking to tolerance until you can walk for 20-30 minutes at a time * Attain and maintain a healthy body weight * Eat healthy foods ( a well-balanced, low-fat diet rich in fruits and vegetables) and get enough calcium * Avoid excessive use of alcohol When to call our office - If you notice any of the following: * Increased pain not relieve by pain medicine * Fevers greater then 100 degrees F, chills or flu symptoms * Increased redness around incision * Drainage from the incision that is not clear * Any foul smelling drainage * Swelling or fluid collection beneath the skin Miscellaneous: * In the hospital, you may be given a walker or cane for support while walking. These are temporary needs and are intended to prevent injuries due to falls. You may discontinue them when you feel strong and steady enough on your feet. * Sleep in a comfortable position. We find that many patients find a lounge chair or recliner with several pillows to be beneficial in the early post-operative period. * The support stockings should be used for 7-10 days and may be discontinued when you are back to walking more and conducting usual household activities. No problem is insignificant. We are here to help you and get you well. Contact us at [phone]. Definitions: Foraminotomy: If part of the disc or a bone spur (osteophyte) is pressing on a nerve as it leaves the vertebra (through an exit called the foramen), a foraminotomy may be done. Otomy means "to make an opening." A foraminotomy is making the opening of the foramen larger, so the nerve can exit without being compressed. Laminotomy: Similar to the foraminotomy, a laminotomy makes a larger opening, this time in your bony plate protecting your spinal canal and spinal cord (the lamina). The lamina may be pressing on your nerve, so the surgeon may make more room for the nerves using a laminotomy. Laminectomy: Sometimes, a laminotomy is not sufficient. The surgeon may need to remove all or part of the lamina. This procedure is called a laminectomy. This can often be done at many levels without any harmful effects. Current Hospital Diet Patient's current hospital diet: Regular Diet Discharge Diet Recommended Diet: Regular Diet Procedures Procedures Performed: L2 to L5 Laminectomy and Fusion Pending Studies Studies pending at discharge: no Medical Emergencies . Who to Call and When: Medical Emergencies: If at any time you feel your situation is an emergency, please call 911 immediately. . Non-Emergent Contact Non-Emergency issues call your: Primary Care Provider . "Provider Documentation" section prepared by Cecil Harrell. .
--- NOTE | 2017-09-16 10:00 | Anesthesiology Progress Note ---
Anesthesia Post Op Note Date & Time Sep 16, 2017 at 10:00 Vital Signs Pain Intensity: 0.0 Vital Signs Past 12 Hours Date Time Temp Pulse Resp B/P (MAP) Pulse Ox O2 Delivery O2 Flow Rate FiO2 09/16/17 08:49 98 Room Air 09/16/17 08:14 36.4 56 22 152/62 (92) 98 Room Air 148/77 (100) 09/16/17 03:11 36.4 70 16 155/85 (108) 99 Room Air 09/15/17 22:46 36.4 72 20 158/89 (112) 99 Room Air Notes Mental Status: alert / awake / arousable, participated in evaluation Pt Amnestic to Procedure: Yes Nausea / Vomiting: adequately controlled Pain: adequately controlled Airway Patency, RR, SpO2: stable & adequate BP & HR: stable & adequate Hydration State: stable & adequate Anesthetic Complications: no major complications apparent
[2017-09-16] MEDS ORDERED: HYDR-4383 PO (10:30)
--- NOTE | 2017-09-16 10:54 | ORTHOPEDICS PROGRESS NOTE ---
DATE: 09/16/2017 SUBJECTIVE: He is alert, oriented. Pain controlled. OBJECTIVE: Vital signs stable. No confusion. No chest pain, shortness of breath. He is up and ambulatory. ASSESSMENT: Delightful gentleman status post major lumbar spine surgery yesterday and was a good 2 hour procedure. He is also high risk for a deep venous thrombosis or pulmonary emboli and we have held his Coumadin. DISPOSITION: We will get him up and ambulatory little bit further today. He is to wear his back brace for support. We will discontinue his Olivo catheter. His dressing will be changed. His Hemovac discontinued. I have ordered home health to visit our patient. I think he needs an INR about every 72 hours, tomorrow would be good which is Tuesday or later on this evening and approximately Tuesday, Tuesday, Tuesday of next week. We are very concerned about a pulmonary emboli and on the other hand, the hematoma in the spine.
[2017-09-16 11:12] LABS: INR 1.4 (0.9-1.1)
--- NOTE | 2017-09-16 22:36 | DISCHARGE SUMMARY ---
HISTORY: Srini is a delightful patient. He had spinal stenosis surgery that I performed yesterday the . He is doing well, improved stable, up ambulatory, some difficulty voiding. He is afebrile. Moves extremities. Alert, oriented. No chest pain, shortness of breath, no calf tenderness, no deficit. Wound clean. ASSESSMENT: Spinal stenosis surgery now out about 30 hours. DISPOSITION: We discussed home or stay because of his voiding. He insisted on going home, it is little bit against medical advice, but we are allowing him to go home. I gave him instructions. If he has problems come right back to the Emergency Room for voiding. We have home nursing on board. We will start his Coumadin regime on Tuesday. Instructions, precautions, education given to him at length to him and his and our nurse here on the floor. We are letting him go home. He has medication and followup.
--- NOTE | 2017-09-19 08:36 | EDITING REQUIRED CODING QUERY ---
CODING QUERY Dr. Harrell DOS: 3-8-18 To promote full compliance with coding requirements relating to patient care, provider participation is requested in all cases of electronics hardware design engineer uncertainty. Please assist us with the question(s) below: Coding Question(s): The operative report you stated that bone graft was placed. Please specify below the type of bone graft: Thank you. ( ) Autograft ( ) Allograft ( x ) Morselized ( ) Structural Physician's Response(s): Thank you Sosa Greene, Utilities Manager Principal Diagnosis: "_that condition established after study, to be chiefly responsible for occasioning the admission of the patient to the hospital for care." Co-Existing Principal Diagnosis: "_when two or more diagnoses equally meet the criteria for principal diagnosis as determined by the circumstances of admission, diagnostic work up, and/or therapy provided, and the Alphabetic Index, Tabular List, or another coding guideline does not provide sequencing direction, any one of the diagnoses may be sequenced first." "When the physician has documented what appears to be a current diagnosis in the body of the record, but has not included the diagnosis in the final diagnostic statement, the physician should be asked whether the diagnosis should be added." (Source [facility] 2 QTR90. p3-4)
== END 2017-09-16 19:58 | disposition home health service (06) ==
LOC: C.ACU 05:29 → C.3E 07:15 → ENRESERV 10:00
PROVIDERS: ADMIT Orthopaedic Surgery Orthopaedic Surgery of the Spine; ATTEND Orthopaedic Surgery Orthopaedic Surgery of the Spine
DX: M48.061 Spinal stenosis, lumbar region without neurogenic claudication (principal); I10 Essential (primary) hypertension; K21.9 Gastro-esophageal reflux disease without esophagitis; E78.00 Pure hypercholesterolemia, unspecified; Z95.1 Presence of aortocoronary bypass graft; Z96.652 Presence of left artificial knee joint; Z96.641 Presence of right artificial hip joint; Z88.5 Allergy status to narcotic agent; Z88.0 Allergy status to penicillin; Z91.013 Allergy to seafood; Z91.041 Radiographic dye allergy status; Z79.899 Other long term (current) drug therapy; Z79.82 Long term (current) use of aspirin; Z79.01 Long term (current) use of anticoagulants

== ENCOUNTER → 2017-09-23 | Outpatient (CLI) | payer OTHER ==
[~2017-09-23] MED LIST changes: +HYDR-4383 PO
[2017-09-23 10:57] LABS: INR 1.3 (0.9-1.1)
== END | disposition home or self-care (01) ==
LOC: C.LABSPEC 10:39
PROVIDERS: ATTEND Orthopaedic Surgery Orthopaedic Surgery of the Spine
DX: Z79.01 Long term (current) use of anticoagulants (principal)

== ENCOUNTER → 2017-09-27 | Outpatient (CLI) | payer OTHER ==
[2017-09-27 11:40] LABS: INR 1.4 (0.9-1.1)
== END | disposition home or self-care (01) ==
LOC: C.LABSPEC 11:21
PROVIDERS: ATTEND Orthopaedic Surgery Orthopaedic Surgery of the Spine
DX: I48.91 Unspecified atrial fibrillation (principal); Z98.61 Coronary angioplasty status

== ENCOUNTER 2017-10-04 14:18 | Emergency (ER) | payer OTHER ==
[~2017-10-04] VITALS: Ht 185.4 cm; Wt 101.0 kg
[2017-10-04 14:25] VITALS: TEMP 36.8; Ht 185.4 cm; Wt 101.0 kg
--- NOTE | 2017-10-04 14:49 | EMERGENCY ROOM VISIT NOTE ---
History First contact with patient: 14:29 Chief Complaint: HEAD INJURY (MINOR) Stated Complaint: HIT HEAD - ON BLOOD THINNER History of Present Illness The patient is a 82 year old male who presents to the Emergency Room with complaints of mechanical fall earlier today after noon while at home, on to wooden floor. Pt's is at bedside and corroborates that pt never lost consciousness, was just walking in his living room when he tripped over his couch and fell to the floor on to his right head. Says he laid there on the floor on his right side, came over to him, and slowly got up, and applied ice. Called PCP and was told to go to the ED for evaluation since he is on Coumadin. Last INR was 2.3 last tuesday. Denies pain, seizure, chest pain, difficulty breathing, loss of consciousness, emesis. Review of Systems ROS See HPI for pertinent positives and negatives. Past Medical/Surgical History Medical Problems: (1) Cardiac Stent (2) Diabetes mellitus type 2 (3) Dyslipidemia (4) Gastroesophageal reflux disease (5) Hypertension (6) Lumbar stenosis (7) Paroxysmal atrial fibrillation (8) s/p coronary PCI (9) s/p lumbar microdiscectomy Surgical Problems: (1) History of carpal tunnel surgery (2) History of open heart surgery (3) S/P CABG x 3 (4) S/P total hip arthroplasty (5) S/P total knee arthroplasty Family History Diabetes mellitus Heart disease Hypertension Social History Smoking Status: Never Smoker Alcohol Use: none Drug Use: none Marital Status: Housing Status: lives with significant other Occupation Status: retired Current/Historical Medications Scheduled Aspirin (Aspirin Ec), 81 MG PO QAM Atenolol (Tenormin), 50 MG PO QAM Atorvastatin (Lipitor), 10 MG PO HS Nitroglycerin (Nitrostat), 0.4 MG UT PRN Omeprazole (Prilosec), 20 MG PO QAM Tamsulosin HCl (Tamsulosin HCl), 0.4 MG PO QPM Warfarin Sodium (Coumadin), 2.5-5 MG PO QPM Scheduled PRN Acetaminophen (Tylenol Arthritis Ext Rel), 1,300 MG PO Q8H PRN for PRN Epinephrine (Epipen), 0.3 MG IM UD PRN for ALLERGIC REACTION Fluticasone Propionate (Nasal) (Flonase Allergy Relief), 1 SPRAY [place] DAILY PRN for Nasal Congestion Hydrocodone/Acetaminophen ([place] 10/325 Tab), 1-2 TABS PO Q6H PRN for Pain Hydrocortisone (Topical) (Hydrocortisone), 1 APPLN TOP BID PRN for Itching Physical Exam Vital Signs Date Time Temp Pulse Resp B/P (MAP) Pulse Ox O2 Delivery O2 Flow Rate FiO2 10/04/17 14:25 36.8 63 18 177/89 98 Physical Exam GENERAL: Awake, alert, in no distress. AOx3. HENT: 7mm round hematoma on right forehead, no laceration present, no step-off EYES: Normal conjunctiva. Sclera non-icteric. NECK: Supple. FROM. No JVD. RESPIRATORY: Clear to auscultation. CARDIAC: Regular rate, normal rhythm. Extremities warm and well perfused. Pulses equal. ABDOMEN: Soft, non-distended. No tenderness to palpation. No rebound or guarding. No masses. LOWER EXTREMITIES: Calves are equal size bilaterally and non-tender. No edema. No discoloration. NEURO: No motor deficits noted. Gait is normal. SKIN: No rash or jaundice noted. Medical Decision & Procedures Procedure CT HEAD WITHOUT CONTRAST (CT) CLINICAL HISTORY: Head pain status post trauma. Patient on Coumadin. COMPARISON STUDY: No previous studies for comparison. TECHNIQUE: Axial CT of the brain is performed from the vertex to the skull base. IV contrast was not administered for this examination. A dose lowering technique was utilized adhering to the principles of ALARA. CT DOSE: 614.27 mGy.cm FINDINGS: No intra or extra-axial mass lesions are visualized. There is no CT evidence of acute cortical infarction. There is no evidence of midline shift. There is no acute hemorrhage. No calvarial fractures are visualized. There are patchy white matter hypodensities likely on a small vessel basis. There is no evidence of pathologic ventricular dilatation. There is no evidence of acute sinusitis IMPRESSION: No acute intracranial findings Electronically signed by: Gerard Colby M.D. 10/04/2017 3:13 PM Dictated Date/Time: 10/04/2017 3:12 PM ED Course 1430 Reviewed record, pt seen and assessed by resident. 1445 Discussed with attending, CT head no contrast ordered Urgent. Pt seen and assessed by attending. 1525 CT head is negative for acute findings. [address], discussed that he should continue taking his coumadin as prescribed. Pt is medically stable for discharge. Medical Decision The patient is a 82 year old male who presents to the Emergency Room with complaints of mechanical fall earlier today after noon while at home, on to wooden floor. Pt's is at bedside and corroborates that pt never lost consciousness, was just walking in his living room when he tripped over his couch and fell to the floor on to his right head. Says he laid there on the floor on his right side, came over to him, and slowly got up, and applied ice. Called PCP and was told to go to the ED for evaluation since he is on Coumadin. Last INR was 2.3 last tuesday. Denies pain, seizure, chest pain, difficulty breathing, loss of consciousness, emesis. Diff dx: mechanical fall while on coumadin, hematoma, dizziness, dehydration CT head shows no acute bleed in the brain, and no fracture. Discussed findings with pt, pt states he is still asymptomatic. Discussed that he is to continue taking his coumadin as prescribed, and to see his primary care physician in 1-2 weeks. Pt and verbalized agreement and understanding. Blood Pressure Screening Patient's blood pressure: Elevated blood pressure Blood pressure disposition: Elevated BP felt to be situational Impression Primary Impression: Head trauma Additional Impressions: Scalp hematoma History of Coumadin therapy Departure Information Dispostion Home / Self-Care Condition GOOD Referrals Angelo Vazquez M.D. (PCP) Patient Instructions My [facility] Additional Instructions You were seen in the ED after a fall at home and since you take a blood thinner it was necessary to image your brain to rule out a bleed in your brain. The CT of your head is normal and shows no fractures or bleeding. You can continue to take your coumadin as prescribed. Please follow up with your primary care physician in 1-2 weeks, or sooner if your symptoms change. In particular, if you develop a severe headache, nausea vomiting or change in consciousness you should be brought back to the ER. Be well. Resident Tracking Resident Involvement: Resident Care Provided Care Provided: Adult ED Problem Qualifiers
--- NOTE | 2017-10-04 15:14 | DIAGNOSTIC IMAGING REPORT ---
CT HEAD WITHOUT CONTRAST (CT) CLINICAL HISTORY: Head pain status post trauma. Patient on Coumadin. COMPARISON STUDY: No previous studies for comparison. TECHNIQUE: Axial CT of the brain is performed from the vertex to the skull base. IV contrast was not administered for this examination. A dose lowering technique was utilized adhering to the principles of ALARA. CT DOSE: 614.27 mGy.cm FINDINGS: No intra or extra-axial mass lesions are visualized. There is no CT evidence of acute cortical infarction. There is no evidence of midline shift. There is no acute hemorrhage. No calvarial fractures are visualized. There are patchy white matter hypodensities likely on a small vessel basis. There is no evidence of pathologic ventricular dilatation. There is no evidence of acute sinusitis IMPRESSION: No acute intracranial findings Electronically signed by: Gerard Colby M.D. 10/04/2017 3:13 PM Dictated Date/Time: 10/04/2017 3:12 PM
--- NOTE | 2017-10-04 15:38 | EMERGENCY ROOM VISIT NOTE ---
History Report prepared by Steve: Yon Toure Under the Supervision of: Dr. Yovani Fontaine M.D. First contact with patient: 14:29 Chief Complaint: HEAD INJURY (MINOR) Stated Complaint: HIT HEAD - ON BLOOD THINNER History of Present Illness The patient is a 82 year old male who presents to the Emergency Room with complaints of a constant head injury that occurred prior to arrival. The patient states that he has not felt himself today, but is unable to pinpoint why. He reports that as he was walking in his house earlier, he lost his balance and tripped. The patient states that he fell and landed on the right side of his head. He reports that he laid on the ground for a while and slowly got up. The patient reports that following the incident, he developed a mild headache He reports that he applied ice to his head, which helped resolve symptoms. The patient states that he called his PCP about the situation who told him to report to the ER since he is on Coumadin. He denies syncope, trauma to any other part of the body, neck pain, abdominal pain, back pain, diarrhea, cough, congestion, and fever. The patient reports he had a back surgery a few weeks ago. He reports a history of chronic GERD. INR was 2.3 last week. 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 A total of 10 systems reviewed and were otherwise negative. Past Medical & Surgical Medical Problems: (1) Cardiac Stent (2) Diabetes mellitus type 2 (3) Dyslipidemia (4) Gastroesophageal reflux disease (5) Hypertension (6) Lumbar stenosis (7) Paroxysmal atrial fibrillation (8) s/p coronary PCI (9) s/p lumbar microdiscectomy Surgical Problems: (1) History of carpal tunnel surgery (2) History of open heart surgery (3) S/P CABG x 3 (4) S/P total hip arthroplasty (5) S/P total knee arthroplasty Family History Diabetes mellitus Heart disease Hypertension Social History Smoking Status: Never Smoker Alcohol Use: none Drug Use: none Marital Status: Housing Status: lives with significant other Occupation Status: retired Current/Historical Medications Scheduled Aspirin (Aspirin Ec), 81 MG PO QAM Atenolol (Tenormin), 50 MG PO QAM Atorvastatin (Lipitor), 10 MG PO HS Nitroglycerin (Nitrostat), 0.4 MG UT PRN Warfarin Sodium (Coumadin), 5 MG PO MON Warfarin Sodium (Coumadin), 2.5 MG PO 6XWK [Rolaids], 1 TAB PO PRN Scheduled PRN Acetaminophen (Tylenol Arthritis Ext Rel), 1,300 MG PO Q8H PRN for PRN Epinephrine (Epipen), 0.3 MG IM UD PRN for ALLERGIC REACTION Fluticasone Propionate (Nasal) (Flonase Allergy Relief), 1 SPRAY [place] DAILY PRN for Nasal Congestion Hydrocodone/Acetaminophen ([place] 10/325 Tab), 1-2 TABS PO Q6H PRN for Pain Hydrocortisone (Topical) (Hydrocortisone), 1 APPLN TOP BID PRN for Itching Omeprazole (Prilosec), 20 MG PO QAM PRN for REFLUX Allergies Coded Allergies: BEE STING (Verified Allergy, Unknown, swelling, 09/15/17) Iodine (Verified Allergy, Unknown, DUE TO SHELLFISH ALLERGY-IODINATED DYE -UNKNOWN, 09/15/17) Morphine (Verified Allergy, Unknown, stopped breathing, 09/15/17) TOLERATES PERCOCET Penicillins (Verified Allergy, Unknown, RASH, 09/15/17) Shellfish (Verified Allergy, Unknown, ANAPHYLAXIS, 09/15/17) Physical Exam Vital Signs Date Time Temp Pulse Resp B/P (MAP) Pulse Ox O2 Delivery O2 Flow Rate FiO2 10/04/17 15:41 63 20 156/82 98 Room Air 10/04/17 14:25 36.8 63 18 177/89 98 Physical Exam GENERAL: Patient is in no acute distress. HEENT: There is a 4 cm hematoma to the right temporal scalp. No laceration repair required. No bony step off. Moist mucous membranes. NECK: No stridor, no adenopathy, no meningismus, trachea is midline. LUNGS: Clear to auscultation bilaterally, no wheeze, no rhonchi, breath sounds equal. HEART: Without murmurs gallops or rubs, regular rate and rhythm. ABDOMEN: Soft, nontender, bowel sounds positive, no hernias, no peritonitis. EXTREMITIES: No cyanosis or edema, full range of motion of all the joints without pain or difficulty, no signs for acute trauma. NEUROLOGIC: Oriented x 3, no acute motor or sensory deficits, no focal weakness. SKIN: No rash, no jaundice, no diaphoresis. Medical Decision & Procedures ER Provider Diagnostic Interpretation: Radiology results as stated below per my review and radiologist interpretation: CT HEAD WITHOUT CONTRAST (CT) CLINICAL HISTORY: Head pain status post trauma. Patient on Coumadin. COMPARISON STUDY: No previous studies for comparison. TECHNIQUE: Axial CT of the brain is performed from the vertex to the skull base. IV contrast was not administered for this examination. A dose lowering technique was utilized adhering to the principles of ALARA. CT DOSE: 614.27 mGy.cm FINDINGS: No intra or extra-axial mass lesions are visualized. There is no CT evidence of acute cortical infarction. There is no evidence of midline shift. There is no acute hemorrhage. No calvarial fractures are visualized. There are patchy white matter hypodensities likely on a small vessel basis. There is no evidence of pathologic ventricular dilatation. There is no evidence of acute sinusitis IMPRESSION: No acute intracranial findings Electronically signed by: Gerard Colby M.D. 10/04/2017 3:13 PM Dictated Date/Time: 10/04/2017 3:12 PM ED Course 1451: The patient was evaluated in room A11B. A complete history and physical exam was performed. 1526: Reevaluated the patient. Discussed results and discharge instructions: He verbalized understanding and agreement. The patient is ready for discharge. Medical Decision The patient is a 82 year old male who presents to the Emergency Room with complaints of a constant headache that began prior to arrival. Differential diagnoses considered include hematoma, skull fracture, intracranial bleeding, dysrhythmia, anemia, electrolyte imbalance, infection. Patient presents after striking his head on the floor. He is on Coumadin. Earlier, he lost his balance and fell. No loss of consciousness. No injury to the neck, arms, chest or abdomen. He was sent here by his doctor's office because of his Coumadin use. Brain CT shows no skull fracture, no acute bleed or mass-effect. On exam, the patient does have a right scalp hematoma. The patient was reassured. He is being discharged. He has no pain and does not want anything for discomfort. He will return here for worsening symptoms such as progressive headache, vomiting/nausea. Medication Reconcilliation Current Medication List: was personally reviewed by me Blood Pressure Screening Patient's blood pressure: Elevated blood pressure Blood pressure disposition: Elevated BP felt to be situational Impression Primary Impression: Head trauma Additional Impressions: Scalp hematoma History of Coumadin therapy Scribe Attestation The scribe's documentation has been prepared under my direction and personally reviewed by me in its entirety. I confirm that the note above accurately reflects all work, treatment, procedures, and medical decision making performed by me. Departure Information Dispostion Home / Self-Care Referrals Angelo Vazquez M.D. (PCP) Forms HOME CARE DOCUMENTATION FORM, IMPORTANT VISIT INFORMATION Patient Instructions My [facility] Additional Instructions You were seen in the ED after a fall at home and since you take a blood thinner it was necessary to image your brain to rule out a bleed in your brain. The CT of your head is normal and shows no fractures or bleeding. You can continue to take your coumadin as prescribed. Please follow up with your primary care physician in 1-2 weeks, or sooner if your symptoms change. In particular, if you develop a severe headache, nausea vomiting or change in consciousness you should be brought back to the ER. Be well. Problem Qualifiers
[2017-10-04 15:41] VITALS: BP 156/82; PULSE 63; O2SAT 98
[2017-10-04] MEDS ORDERED: ROLAIDS PO (16:03)
[2017-10-04] MEDS ORDERED: WARF5TAB90 PO (16:03)
== END 2017-10-04 15:57 | disposition home or self-care (01) ==
LOC: C.EDB 14:19 → C.EDA 15:57
DX: S00.03XA Contusion of scalp, initial encounter (principal); W01.198A Fall on same level from slipping, tripping and stumbling with subsequent striking against other object, initial encounter; E11.9 Type 2 diabetes mellitus without complications; I10 Essential (primary) hypertension; I48.91 Unspecified atrial fibrillation; Z96.649 Presence of unspecified artificial hip joint; Z96.659 Presence of unspecified artificial knee joint; Z79.82 Long term (current) use of aspirin; Z79.01 Long term (current) use of anticoagulants; Z98.890 Other specified postprocedural states; Z95.5 Presence of coronary angioplasty implant and graft; Z91.030 Bee allergy status; Z88.6 Allergy status to analgesic agent; Z88.0 Allergy status to penicillin; Z91.041 Radiographic dye allergy status; Z91.013 Allergy to seafood; Z83.3 Family history of diabetes mellitus; Z82.49 Family history of ischemic heart disease and other diseases of the circulatory system

== ENCOUNTER → 2017-11-02 | Day surgery (SDC) | payer OTHER ==
[~2017-11-02] VITALS: Ht 185.4 cm; Wt 104.5 kg
[~2017-11-02] MED LIST changes: -HYDR-4383 PO; -HYDR2.5L TOP; +LIDOCAINE HCL 2% 2 ML VIAL (20MG/ML) ONE; -OMEP20CA9 PO; +PRLSR20 PO; +PROPOFOL IV EMULSION 10 MG/ML 20 ML VIAL IV ONE; +SODIUM CHLORIDE 0.9% 500ML 500 ML IV ONE
[2017-11-02 09:43] VITALS: Ht 185.4 cm; Wt 104.5 kg
--- NOTE | 2017-11-02 10:18 | Endo History and Physical ---
History & Physical Date of Service: Nov 02, 2017. Chief Complaint: abdominal discomfort, weight loss Referring Physician: Dr. Vazquez History of Present Illness Abd pain, weight loss Past Surgical History Hx Cardiac Surgery: Yes (MULTIPLE HEART CATH (?TOTAL 5 STENTS PLACED), CABG-3 VESSELS) Hx Internal Defibrillator: No Hx Pacemaker: No Hx Abdominal Surgery: No Hx of Implantable Prosthesis: No Hx Post-Op Nausea and Vomiting: No Hx Cancer Surgery: No Hx Thoracic Surgery: No Hx Orthopedic: Yes (L TKA, R DONET, LUMBAR LAMINECTOMY X 2, RT/LEFT CTR) Hx Urinary Tract Surgery: No Family History Polyp Social History Smoking Status: Never Smoker Hx Substance Use: No Hx Alcohol Use: No Allergies Coded Allergies: BEE STING (Verified Allergy, Unknown, swelling, 11/02/17) Iodine (Verified Allergy, Unknown, DUE TO SHELLFISH ALLERGY-IODINATED DYE -UNKNOWN, 11/02/17) Morphine (Verified Allergy, Unknown, stopped breathing, 11/02/17) TOLERATES PERCOCET Penicillins (Verified Allergy, Unknown, RASH, 11/02/17) Shellfish (Verified Allergy, Unknown, ANAPHYLAXIS, 11/02/17) Current Medications Reported Home Medications Medications Dose Route/Sig Max Daily Dose Days Date Category Dose Instructions Tamsulosin HCl 0.4 Mg Cap 1 Cap PO QAM 10/26/17 Reported Prilosec (Omeprazole) 20 Mg Capcr 40 Mg PO QAM 10/26/17 Reported Coumadin (Warfarin Sodium) 5 Mg Tab 2.5 Mg PO 6XWK 10/04/17 Reported TAKE ALL DAYS BUT MON Nitrostat (Nitroglycerin) 0.4 Mg Tab 0.4 Mg UT PRN 09/12/17 Reported Tylenol Arthritis Ext Rel (Acetaminophen) 650 Mg Cplt 1,300 Mg PO Q8H PRN 09/12/17 Reported Lipitor (Atorvastatin Calcium) 10 Mg Tab 10 Mg PO HS 09/12/17 Reported Flonase Allergy Relief (Fluticasone Propionate (Nasal)) 50 Mcg/Act Spr 1 [place] BYRON DAILY PRN 04/29/17 Reported Epipen (Epinephrine) 0.3 Mg/0.3 Ml Inj 0.3 Mg IM UD PRN 04/29/17 Reported Tenormin (Atenolol) 50 Mg Tab 50 Mg PO QAM 04/29/17 Reported Coumadin (Warfarin Sodium) 5 Mg Tab 5 Mg PO MON 10/20/17 Reported Aspirin Ec (Aspirin) 81 Mg Tab 81 Mg PO QAM 04/29/17 Reported Vital Signs Weight (Kilograms): 104.55 Height (Feet): 6 Height (Inches): 1 Date Time Temp Pulse Resp B/P (MAP) Pulse Ox O2 Delivery O2 Flow Rate FiO2 11/02/17 09:57 36.5 63 20 154/83 (106) 98 Room Air Physical Exam General Appearance: no apparent distress Respiratory/Chest: Auscultation: breath sounds normal Cardiovascular: Heart Auscultation: RRR Abdomen: Inspection & Palpation: soft Assessment and Plan Abd pain - EGD, cscopy
[2017-11-02 11:31] VITALS: BP 124/72; PULSE 57; O2SAT 99
--- NOTE | 2017-11-02 11:56 | Discharge Instructions ---
Endoscopy Patient Instructions Date / Procedure(s) Performed Nov 02, 2017. Colonoscopy, EGD Allergy Information Coded Allergies: BEE STING (Verified Allergy, Unknown, swelling, 11/02/17) Iodine (Verified Allergy, Unknown, DUE TO SHELLFISH ALLERGY-IODINATED DYE -UNKNOWN, 11/02/17) Morphine (Verified Allergy, Unknown, stopped breathing, 11/02/17) TOLERATES PERCOCET Penicillins (Verified Allergy, Unknown, RASH, 11/02/17) Shellfish (Verified Allergy, Unknown, ANAPHYLAXIS, 11/02/17) Discharge Date / Findings Nov 02, 2017. Normal stomach. Diverticulosis, polyps x 3, hemorrhoids Medication Instructions Stopped Medication(s): coumadin stopped for 5 days Resume coumadin today Provider Instructions Activity Restrictions - No exercising or heavy lifting for 24 hours. - Do not drink alcohol the day of the procedure. - Do not drive a car or operate machinery until the day after the procedure. - Do not make any important decisions or sign important papers in 24 hours after the procedure. Following Day: - Return to full activity which may include returning to work/school. Diet Start your diet with liquids and light foods (jello, soup, juice, toast). Then eat your usual diet if not nauseated. Treatment For Common After Affects For mild abdominal pain, bloating, or excessive gas: - Rest - Eat lightly - Lie on right side Follow-Up Information Follow-up with Dr. Vazquez as scheduled Anesthesia Information What You Should Know You have had a procedure that required some medicine to reduce anxiety and discomfort. This treatment is called moderate sedation. After receiving the treatment, you may be sleepy, but you will be able to breathe on your own. The effects of the treatment may last for several hours. Follow these instructions along with Activity/Diet recommendations noted above: * Do NOT do anything where dizziness or clumsiness would be dangerous. * Rest quietly at home today, then you can be up and about tomorrow. * Have a responsible person stay with you the rest of today. * You may have had an I.V. today. If so, you may take the dressing off later today. Recommendations Call your doctor if: * Trouble breathing * Continuous vomiting for more than 24 hours * Temperature above 101 degrees * Severe abdominal pain or bloating * Pain not relieved by pain medicine ordered * There is increased drainage or redness from any incision * A large amount of rectal bleeding greater than 2-3 tablespoons. (If you had a polyp/s removed or have hemorrhoids, a small amount of blood - from the rectum is to be expected.) * You have any unanswered questions or concerns. IN THE EVENT OF A SERIOUS EMERGENCY, GO TO THE NEAREST EMERGENCY ROOM Your discharge instructions were prepared by provider Kristin Zambrano. Patient Instructions Signature Page Srini Ch Patient (or Guardian) Signature/Date: I have read and understand the instructions given to me by my caregivers. Caregiver/RN/Doctor Signature/Date: The above-named patient and/or guardian has received patient instructions on this date. + Original Patient Signature Page (only) stays with chart. Please make copy for patient.
--- NOTE | 2017-11-02 13:05 | Anesthesiology Progress Note ---
Anesthesia Post Op Note Date & Time Nov 02, 2017 at 13:05 Vital Signs Pain Intensity: 0 Vital Signs Past 12 Hours Date Time Temp Pulse Resp B/P (MAP) Pulse Ox O2 Delivery O2 Flow Rate FiO2 11/02/17 11:31 57 16 124/72 (89) 99 Room Air 11/02/17 11:21 60 16 125/76 (92) 100 Room Air 11/02/17 11:11 59 16 116/67 (83) 98 Room Air 11/02/17 09:57 36.5 63 20 154/83 (106) 98 Room Air Notes Mental Status: alert / awake / arousable, participated in evaluation Pt Amnestic to Procedure: Yes Nausea / Vomiting: adequately controlled Pain: adequately controlled Airway Patency, RR, SpO2: stable & adequate BP & HR: stable & adequate Hydration State: stable & adequate Anesthetic Complications: no major complications apparent
--- NOTE | 2017-11-03 11:32 | GI REPORT ---
Patient Name: Srini Ch Procedure Date: 11/02/2017 10:20 AM Date of : 1935 Admit Type: Outpatient Age: 82 Gender: Male Attending MD: Kristin Burch MD Procedure: Upper GI endoscopy Providers: Kristin Burch MD Referring MD: Angelo Vazquez Indications: Abdominal pain Medicines: See the Anesthesia note for documentation of the administered medications Complications: No immediate complications. Estimated Blood Loss: Estimated blood loss: none. Procedure: Pre-Anesthesia Assessment: - ASA Grade Assessment: III - A patient with severe systemic disease. After obtaining informed consent, the endoscope was passed under direct vision. Throughout the procedure, the patient's blood pressure, pulse, and oxygen saturations were monitored continuously. The scope was introduced through the mouth, and advanced to the third part of duodenum. The upper GI endoscopy was accomplished without difficulty. The patient tolerated the procedure well. Findings: The examined esophagus was normal. Biopsies were taken with a cold forceps for histology. The entire examined stomach was normal. Biopsies were taken with a cold forceps for histology. The examined duodenum was normal. Biopsies were taken with a cold forceps for histology. Impression: - Normal esophagus. Biopsied. - Normal stomach. Biopsied. - Normal examined duodenum. Biopsied. Recommendation: - Discharge patient to home. Kristin Burch M.D. Kristin Burch MD 11/03/2017 11:32:14 AM This report has been signed electronically. Note Initiated On: 11/02/2017 10:20 AM Number of Addenda: 0 I attest to the content of the Intraoperative Record and orders documented therein, exceptions below {[id number]}
--- NOTE | 2017-11-03 11:34 | GI REPORT ---
Patient Name: Srini Ch Procedure Date: 11/02/2017 10:19 AM Date of : 1935 Admit Type: Outpatient Age: 82 Gender: Male Attending MD: Kristin Burch MD Procedure: Colonoscopy Providers: Kristin Burch MD Referring MD: Angelo Vazquez Indications: Screening for colorectal malignant neoplasm Medicines: See the Anesthesia note for documentation of the administered medications Complications: No immediate complications. Estimated Blood Loss: Estimated blood loss: none. Procedure: Pre-Anesthesia Assessment: - ASA Grade Assessment: - After reviewing the risks and benefits, the patient was deemed in satisfactory condition to undergo the procedure. After I obtained informed consent, the scope was passed under direct vision. Throughout the procedure, the patient's blood pressure, pulse, and oxygen saturations were monitored continuously. The scope was introduced through the anus and advanced to the terminal ileum. The colonoscopy was performed without difficulty. The patient tolerated the procedure well. The quality of the bowel preparation was good. Findings: The perianal and digital rectal examinations were normal. Multiple small and large-mouthed diverticula were found in the sigmoid colon and descending colon. Three sessile polyps were found in the sigmoid colon, transverse colon and ascending colon. The polyps were 4 to 6 mm in size. These polyps were removed with a cold snare. Resection and retrieval were complete. Hemorrhoids on retroflexion. Otherwise normal exam. Impression: - Diverticulosis in the sigmoid colon and in the descending colon. - Three 4 to 6 mm polyps in the sigmoid colon, in the transverse colon and in the ascending colon, removed with a cold snare. Resected and retrieved. - Hemorrhoids. Recommendation: - Follow up pathology results. - Discharge patient to home. Kristin Burch M.D. Kristin Burch MD 11/02/2017 11:54:47 AM This report has been signed electronically. Note Initiated On: 11/02/2017 10:19 AM Number of Addenda: 0 I attest to the content of the Intraoperative Record and orders documented therein, exceptions below {[id number]}
== END | disposition home or self-care (01) ==
LOC: C.GI 08:47
PROVIDERS: ATTEND Internal Medicine Gastroenterology
DX: Z12.11 Encounter for screening for malignant neoplasm of colon (principal); R10.9 Unspecified abdominal pain; K57.30 Diverticulosis of large intestine without perforation or abscess without bleeding; K64.8 Other hemorrhoids; K29.50 Unspecified chronic gastritis without bleeding; D12.2 Benign neoplasm of ascending colon; D12.4 Benign neoplasm of descending colon; D12.5 Benign neoplasm of sigmoid colon; Z91.030 Bee allergy status; Z88.5 Allergy status to narcotic agent; Z88.0 Allergy status to penicillin; Z91.013 Allergy to seafood; Z96.641 Presence of right artificial hip joint; Z96.652 Presence of left artificial knee joint; Z95.1 Presence of aortocoronary bypass graft; Z79.82 Long term (current) use of aspirin; Z79.01 Long term (current) use of anticoagulants

== ENCOUNTER 2019-07-21 12:35 | Observation (INO) ==
[2019-07-21] MEDS ORDERED: NITROGLYCERIN SL 0.4 MG/TAB TAB SL STA (13:03)
[2019-07-21] MEDS ORDERED: NITROGLYCERIN SL 0.4 MG/TAB TAB SL PRN (13:03)
[2019-07-21] MEDS ORDERED: ASPIRIN CHEW 324 MG PO STA (13:03)
[2019-07-21 13:11] LABS: Basophils # (auto) 0.03 K/uL (0-0.2); Basophils % (auto) 0.6 %; Eosinophils # (auto) 0.25 K/uL (0-0.5); Hematocrit (blood only) 36.3 % (42-52); Hemoglobin 12.1 g/dL (14.0-18.0); Immature Granulocytes # (auto) 0.02 K/uL (0.00-0.02); Immature Granulocytes % (auto) 0.4 %; Lymphocytes # (auto) 1.61 K/uL (1.2-3.4); Mean Corpuscular Hemoglobin 26.4 pg (25-34); Mean Corpuscular Hgb Conc 33.3 g/dL (32-36); Mean Corpuscular Volume 79.3 fL (80-100); Monocytes # (auto) 0.61 K/uL (0.11-0.59); Monocytes % (auto) 12.1 %; Neutrophils # (auto) 2.51 K/uL (1.4-6.5); Neutrophils % (auto) 49.9 %; Platelet Count 173 K/uL (130-400); RDW Coefficient of Variation 15.6 % (11.5-14.5); RDW Standard Deviation 45.3 fL (36.4-46.3); Red Blood Count 4.58 M/uL (4.7-6.1); White Blood Count 5.03 K/uL (4.8-10.8)
[2019-07-21 13:23] LABS: INR 3.2 (0.9-1.1); Partial Thromboplastin Ratio 1.2; Partial Thromboplastin Time 33.6 Seconds (21.0-31.0); Prothrombin Time 29.8 Seconds (9.0-12.0)
[2019-07-21] MEDS ORDERED: ACETAMINOPHEN 325 MG TAB PO STA (13:25)
[2019-07-21 13:30] LABS: Alanine Aminotransferase 38 U/L (12-78); Albumin Level 4.1 gm/dl (3.4-5.0); Aspartate Aminotransferase 34 U/L (15-37); BUN Creatinine Ratio 11.9 (10-20); Blood Urea Nitrogen 12 mg/dl (7-18); Calcium 8.9 mg/dl (8.5-10.1); Carbon Dioxide 25 mmol/L (21-32); Chloride 100 mmol/L (98-107); Creatinine Clr Calc Pharmacy 75.9 ml/min; Est GFR (African American) 82.9; Est GFR (Non-African American) 71.5; Glucose 122 mg/dl (70-99); Lipase 139 U/L (73-393); Potassium 3.7 mmol/L (3.5-5.1); Sodium 131 mmol/L (136-145)
[2019-07-21 13:35] LABS: Alkaline Phosphatase 99 U/L (45-117); Bilirubin,Total 0.5 mg/dl (0.2-1); Total Protein 8.1 gm/dl (6.4-8.2); Troponin I < 0.015 ng/ml (0-0.045)
--- NOTE | 2019-07-21 14:34 | XRay Report ---
XR chest 1V portable CLINICAL HISTORY: Chest Pain COMPARISON STUDY: Chest radiograph January 04, 2019. FINDINGS: Lung volumes are normal. Lungs are clear. There is no pneumothorax or pleural effusion. Mil d cardiomegaly is noted. Mediastinal contours are normal. There is no evidence for pulmonary edema. T here are median sternotomy wires and mediastinal surgical clips. IMPRESSION: No acute cardiopulmonary findings. ACT 112: Negative or not required by law. Electronically signed by: Sunday Jeffries M.D. 07/21/2019 2:33 PM
--- NOTE | 2019-07-21 16:05 | History & Physical Report ---
Date of Service July 21, 2019 Assessment & Plan (1) Coronary artery disease: History of coronary artery disease, status post three-vessel CABG in 2013. Positive nuclear stress test in December 2018 with patent bypass grafts as summarized in HPI. Distal LAD stenosis noted, not amenable to PCI. Medical management recommended and nitrates added to regimen. Worsening chest discomfort today after doing some errands. Initial troponin is normal. EKG shows NSR with inferolateral T-wave inversions; inverted T-waves V5-V6 new compared to 01/04/19. Check serial cardiac markers. Continue aspirin, clopidogrel, metoprolol, isosorbide mononitrate, and statin. Consult Cardiology for further recommendations. (2) Paroxysmal atrial fibrillation: Currently in normal sinus rhythm. Continue metoprolol and warfarin. (3) Hypertension: Continue metoprolol and nitrates. (4) Diabetes mellitus type 2 with complications: Random blood sugar 122. Check hemoglobin A1c. Hold metformin during hospital stay. Insulin coverage as necessary if blood sugars elevated. (5) Dyslipidemia: Check lipid profile. Continue atorvastatin. (6) DVT prophylaxis: Continue warfarin, titrate dose. (7) Discharge planning issues: Anticipated discharge to home. Family Medicine follow-up with Dr. Vazquez. Cardiology follow-up with Dr. Middleton. History of Present Illness Chief Complaint: chest pressure Primary Care Provider: Angelo Vazquez MD 84-year-old male followed by Dr. Vazquez for Family Medicine and Dr. Middleton for Cardiology. History of coronary artery disease, status post 3-vessel CABG in 2013, paroxysmal atrial fibrillation, diabetes, and other problems detailed below. Nuclear stress study was abnormal in December 2018. Cardiac catheterization at [facility] on 12/28/2018 showed patency of his RHODES to LAD graft, patency of SVG to obtuse marginal, and patency of SVG to PDA. 95% stenosis of apical LAD was noted, but the vessel was small and not amenable to PCI. T There was also 70% stenosis of the OM1 distal to the SVG-OM graft. Medical management was recommended. Recently experiences daily mild chest pressure, relieved by acetaminophen. This morning, chest pressure was a bit more severe after doing some errands and he mentioned it to his who encouraged him to come to the ED for evaluation. The pressure radiated towards his left neck. No associated dyspnea, diaphoresis, nausea, vomiting. In the ED, he received sublingual nitroglycerin with relief of the chest pressure. Allergies Allergy/AdvReac Type Severity Reaction Status Date / Time bee venom protein (honey bee) Allergy Unknown swelling Verified 07/21/19 13:18 iodine Allergy Unknown DUE TO Verified 07/21/19 13:18 SHELLFISH ALLERGY-IODINATED DYE-UNKNOWN morphine Allergy Unknown stopped Verified 07/21/19 13:18 breathing Penicillins Allergy Unknown RASH Verified 07/21/19 13:18 shellfish derived Allergy Unknown ANAPHYLAXIS Verified 07/21/19 13:18 Home Medications Home Medications Medication Instructions Recorded Confirmed Type aspirin 81 mg PO QAM 07/21/19 07/21/19 History atorvastatin 80 mg PO PM 07/21/19 07/21/19 History clopidogrel 75 mg PO QAM 07/21/19 07/21/19 History isosorbide mononitrate 30 mg PO QAM 07/21/19 07/21/19 History metformin 500 mg PO QAM 07/21/19 07/21/19 History metoprolol tartrate 12.5 mg PO BID 07/21/19 07/21/19 History pantoprazole 40 mg PO QAM 07/21/19 07/21/19 History warfarin 2.5 mg PO SUTUTHSA 07/21/19 07/21/19 History warfarin 5 mg PO MOWEFR 07/21/19 07/21/19 History Past Med/Surg History Medical History (Updated 07/21/19 @ 23:07 by Cecil Escoto MD) Coronary artery disease Diabetes mellitus type 2 with complications Dyslipidemia Hypertension (Chronic) Lumbar stenosis Paroxysmal atrial fibrillation (Chronic) Surgical History (Updated 07/21/19 @ 23:12 by Cecil Escoto MD) History of carpal tunnel surgery "bilateral" 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; [place]" S/P total hip arthroplasty S/P total knee arthroplasty Family History (Updated 07/21/19 @ 23:00 by Cecil Escoto MD) Father Coronary heart disease Other Family history non-contributory Social History Preferred Language: [place] Communication Ability: Effective Crester Required: No Beliefs That Will Affect Care: None marital status: Current Living Situation: Spouse current occupational status: retired Other Information That Helps Us Care for You: No Feels Safe at Home: Yes Safety Concerns: Feels Safe At This Time Smoking Status: Unknown if ever smoked Hx Alcohol Use: No Hx Substance Use: No Review of Systems Constitutional: no fever and no weight loss Eyes: no diplopia and no worsening vision Ear, Nose, Mouth, Throat: + hearing loss Respiratory: no cough and no dyspnea Cardiovascular: as per Subjective / HPI Gastrointestinal: no nausea, no vomiting, no constipation, no diarrhea/loose stools, no blood in stools and no melena Genitourinary: no dysuria and no hematuria Musculoskeletal: no joint pain and no myalgia Integumentary: no rash and no new lesions Neurologic: no headache(s) Endocrine: no polydipsia and no polyuria Hematologic / Lymphatic: + easy bruising; no easy bleeding and no lymphadenopathy Physical Exam Constitutional: WD/WN, vitals as above no acute distress Eyes: PERRL, conjunctivae normal, anicteric sclerae ENMT: external ear and nose normal, oropharynx normal Ears: + hearing impairment Neck: trachea midline, no thyromegaly Respiratory: normal respiratory effort, lungs clear to auscultation Cardiovascular: Rate/Rhythm: regular rate Heart Sounds: no gallop, no murmur and no cardiac rub Vessels: no JVD Extremities: normal capillary refill; no calf tenderness and no edema carotid, radial, popliteal pulses symmetric Gastrointestinal (Abdomen): normal bowel sounds, soft, nontender, no hepatosplenomegaly Musculoskeletal: Head/Neck/Chest: neck supple Extremities: strength 5/5 throughout; no cyanosis and no clubbing Skin: no rashes, warm and dry Neurologic: PERRL, EOMI no facial palsy no dysarthria or aphasia Psychiatric: Orientation: alert and oriented x 3 Affect: euthymic affect Lymphatic: no cervical lymphadenopathy Results & Data Vital Signs (Past 12 Hours) Vital Signs Temp Pulse Resp BP Pulse Ox 07/21/19 13:46 58 L 14 98 07/21/19 13:45 56 L 11 L 134/65 98 07/21/19 13:30 61 18 144/72 H 100 07/21/19 13:18 66 21 122/77 99 07/21/19 13:17 70 22 99 07/21/19 13:16 62 20 118/62 99 07/21/19 13:15 63 15 99 07/21/19 13:10 98 07/21/19 13:00 61 12 100 07/21/19 12:53 60 13 100 07/21/19 12:51 65 17 149/76 H 100 07/21/19 12:41 36.5 C 66 20 171/86 H 99 Laboratory Results Laboratory Results - last 24 hr 07/21/19 07/21/19 07/21/19 13:02 13:02 13:02 WBC 5.03 RBC 4.58 L Hgb 12.1 L Hct 36.3 L MCV 79.3 L MCH 26.4 MCHC 33.3 RDW Std Deviation 45.3 RDW Coeff of Egronimo 15.6 H Plt Count 173 MPV 9.0 Immature Gran % (Auto) 0.4 Neut % (Auto) 49.9 Lymph % (Auto) 32.0 Merrick % (Auto) 12.1 Eos % (Auto) 5.0 Baso % (Auto) 0.6 Immature Gran # (Auto) 0.02 Neut # (Auto) 2.51 Lymph # (Auto) 1.61 Merrick # (Auto) 0.61 H Eos # (Auto) 0.25 Baso # (Auto) 0.03 PT 29.8 H INR 3.2 H APTT 33.6 H PTT Ratio 1.2 Sodium 131 L Potassium 3.7 Chloride 100 Carbon Dioxide 25 Anion Gap 6.0 BUN 12 Creatinine 0.98 Est Cr Clr Drug Dosing 75.9 Est GFR ( Amer) 82.9 Est GFR (Non-Af Amer) 71.5 BUN/Creatinine Ratio 11.9 Glucose 122 H Calcium 8.9 Total Bilirubin 0.5 AST 34 ALT 38 Alkaline Phosphatase 99 Troponin I < 0.015 Total Protein 8.1 Albumin 4.1 Globulin 4.0 Albumin/Globulin Ratio 1.0 Lipase 139 07/21/19 18:46 WBC RBC Hgb Hct MCV MCH MCHC RDW Std Deviation RDW Coeff of Geronimo Plt Count MPV Immature Gran % (Auto) Neut % (Auto) Lymph % (Auto) Merrick % (Auto) Eos % (Auto) Baso % (Auto) Immature Gran # (Auto) Neut # (Auto) Lymph # (Auto) Merrick # (Auto) Eos # (Auto) Baso # (Auto) PT INR APTT PTT Ratio Sodium Potassium Chloride Carbon Dioxide Anion Gap BUN Creatinine Est Cr Clr Drug Dosing Est GFR ( Amer) Est GFR (Non-Af Amer) BUN/Creatinine Ratio Glucose Calcium Total Bilirubin AST ALT Alkaline Phosphatase Troponin I < 0.015 Total Protein Albumin Globulin Albumin/Globulin Ratio Lipase Diagnostic Findings Portable chest x-ray reviewed by the undersigned and formally interpreted by Radiology. Postsurgical changes, borderline cardiomegaly, no infiltrates, effusions, CHF. ECG Additional Comments: EKG performed at 1249 reviewed and demonstrated normal sinus rhythm at 70/minute, first-degree AV block, inverted T waves inferiorly and laterally. T wave inversions in lateral precordial leads now more pronounced compared to 01/04/2019. Code Status & VTE Plan Code Status Discussed with patient. Full code. VTE Prophylaxis Plan VTE Prophylaxis will be ordered: Yes
--- NOTE | 2019-07-21 17:28 | Emergency Department Note ---
Entered by Roxy Ruiz acting as a scribe for Delgado Prakash MD History of Present Illness General Chief complaint: Chest Pain Stated complaint: UPPER LEFT CHEST PAIN- CARDIAC HX Time Seen by Provider: 07/21/19 12:45 Source: patient History of Present Illness Onset (ago): week(s) (a few weeks ago) Location: chest Pain Consistency: + intermittent Maximum Pain Intensity: 2 Relieved By: + none Exacerbated By: + other (walking up stairs) Associated symptoms: + denies other symptoms (leg swelling, leg pain) and + other (lightheadedness); no cough and no fever/chills (fever) The patient is an 84 year old male w/ PMHx CABG x3, hip arthroplasty, knee arthroplasty, carpal tunnel surgery, HTN, lumbar stenosis, and paroxysmal atrial fibrillation who presents to the ED w/ CC of intermittent chest pain starting a few weeks ago. The patient states that over the last several weeks he has been having left sided chest pain that radiates to the middle of his chest. He states that it comes and goes when it wants, but nothing seems to make it better. He notes that walking up the stairs makes the pain worse. The patient complains of feeling lightheaded. The patient notes that he takes Aspirin and Coumadin, but didnt yet today. The patient denies cough, fever, leg swelling, leg pain, a history of blood clots, recent procedures, and recent hospitalizations. Home Medications Home Medications Medication Instructions Recorded Confirmed Type aspirin 81 mg PO QAM 07/21/19 07/21/19 History atorvastatin 80 mg PO PM 07/21/19 07/21/19 History clopidogrel 75 mg PO QAM 07/21/19 07/21/19 History isosorbide mononitrate 30 mg PO QAM 07/21/19 07/21/19 History metformin 500 mg PO QAM 07/21/19 07/21/19 History metoprolol tartrate 12.5 mg PO BID 07/21/19 07/21/19 History pantoprazole 40 mg PO QAM 07/21/19 07/21/19 History warfarin 2.5 mg PO SUTUTHSA 07/21/19 07/21/19 History warfarin 5 mg PO MOWEFR 07/21/19 07/21/19 History Allergies Allergy/AdvReac Type Severity Reaction Status Date / Time bee venom protein (honey bee) Allergy Unknown swelling Verified 07/21/19 13:18 iodine Allergy Unknown DUE TO Verified 07/21/19 13:18 SHELLFISH ALLERGY-IODINATED DYE-UNKNOWN morphine Allergy Unknown stopped Verified 07/21/19 13:18 breathing Penicillins Allergy Unknown RASH Verified 07/21/19 13:18 shellfish derived Allergy Unknown ANAPHYLAXIS Verified 07/21/19 13:18 Past Med/Surg History Medical History Hypertension (Chronic) Lumbar stenosis Paroxysmal atrial fibrillation (Chronic) Surgical History History of carpal tunnel surgery (Chronic) "bilateral" S/P CABG x 3 (Chronic) "05/2014; [place]" 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 and A total of 10 systems reviewed and were otherwise negative Physical Exam Vital Signs Vital Signs - 24 hr 07/21/19 12:41 07/21/19 12:51 07/21/19 12:53 Temperature 36.5 C Temperature Source Oral Pulse Rate 66 65 60 Pulse Rate from SpO2 Sensor 60 60 Respiratory Rate 20 17 13 Respiratory Effort / Characteristics Non-Labored Spontaneous Respiratory Depth Normal Respiratory Pattern Regular Blood Pressure 171/86 H 149/76 H Blood Pressure Mean 114 90 Blood Pressure Position Sitting Pulse Oximetry 99 100 100 Oxygen Delivery Method Room Air Sepsis Recent Fever Within 48 Hours No Sepsis New/Unexplained Change in Mental Status No Sepsis Action Taken by Nursing No Action Required 07/21/19 13:00 07/21/19 13:10 07/21/19 13:15 Temperature Temperature Source Pulse Rate 61 63 Pulse Rate from SpO2 Sensor 61 64 Respiratory Rate 12 15 Respiratory Effort / Characteristics Respiratory Depth Respiratory Pattern Blood Pressure Blood Pressure Mean Blood Pressure Position Pulse Oximetry 100 98 99 Oxygen Delivery Method Room Air Sepsis Recent Fever Within 48 Hours Sepsis New/Unexplained Change in Mental Status Sepsis Action Taken by Nursing 07/21/19 13:16 07/21/19 13:17 07/21/19 13:18 Temperature Temperature Source Pulse Rate 62 70 66 Pulse Rate from SpO2 Sensor 62 70 66 Respiratory Rate 20 22 21 Respiratory Effort / Characteristics Respiratory Depth Respiratory Pattern Blood Pressure 118/62 122/77 Blood Pressure Mean 75 92 Blood Pressure Position Pulse Oximetry 99 99 99 Oxygen Delivery Method Sepsis Recent Fever Within 48 Hours Sepsis New/Unexplained Change in Mental Status Sepsis Action Taken by Nursing 07/21/19 13:30 07/21/19 13:45 07/21/19 13:46 Temperature Temperature Source Pulse Rate 61 56 L 58 L Pulse Rate from SpO2 Sensor 61 57 L 58 L Respiratory Rate 18 11 L 14 Respiratory Effort / Characteristics Respiratory Depth Respiratory Pattern Blood Pressure 144/72 H 134/65 Blood Pressure Mean 87 75 Blood Pressure Position Pulse Oximetry 100 98 98 Oxygen Delivery Method Sepsis Recent Fever Within 48 Hours Sepsis New/Unexplained Change in Mental Status Sepsis Action Taken by Nursing 07/21/19 14:00 07/21/19 14:01 07/21/19 14:15 Temperature Temperature Source Pulse Rate 55 L 56 L 56 L Pulse Rate from SpO2 Sensor 56 L 57 L 56 L Respiratory Rate 11 L 12 14 Respiratory Effort / Characteristics Respiratory Depth Respiratory Pattern Blood Pressure 127/66 132/72 Blood Pressure Mean 74 84 Blood Pressure Position Pulse Oximetry 100 100 100 Oxygen Delivery Method Sepsis Recent Fever Within 48 Hours Sepsis New/Unexplained Change in Mental Status Sepsis Action Taken by Nursing 07/21/19 14:16 07/21/19 14:30 07/21/19 14:45 Temperature Temperature Source Pulse Rate 57 L 55 L 55 L Pulse Rate from SpO2 Sensor 57 L 55 L 56 L Respiratory Rate 17 12 11 L Respiratory Effort / Characteristics Respiratory Depth Respiratory Pattern Blood Pressure 126/63 125/66 Blood Pressure Mean 67 77 Blood Pressure Position Pulse Oximetry 100 98 95 Oxygen Delivery Method Sepsis Recent Fever Within 48 Hours Sepsis New/Unexplained Change in Mental Status Sepsis Action Taken by Nursing 07/21/19 14:46 07/21/19 15:00 07/21/19 15:01 Temperature Temperature Source Pulse Rate 57 L 56 L 58 L Pulse Rate from SpO2 Sensor 56 L 57 L 58 L Respiratory Rate 8 L 15 16 Respiratory Effort / Characteristics Respiratory Depth Respiratory Pattern Blood Pressure 132/71 Blood Pressure Mean 84 Blood Pressure Position Pulse Oximetry 97 98 99 Oxygen Delivery Method Sepsis Recent Fever Within 48 Hours Sepsis New/Unexplained Change in Mental Status Sepsis Action Taken by Nursing 07/21/19 15:15 07/21/19 15:16 07/21/19 15:30 Temperature Temperature Source Pulse Rate 56 L 55 L 56 L Pulse Rate from SpO2 Sensor 55 L 56 L 56 L Respiratory Rate 8 L 10 L 11 L Respiratory Effort / Characteristics Respiratory Depth Respiratory Pattern Blood Pressure 118/62 126/70 Blood Pressure Mean 75 85 Blood Pressure Position Pulse Oximetry 98 97 98 Oxygen Delivery Method Sepsis Recent Fever Within 48 Hours Sepsis New/Unexplained Change in Mental Status Sepsis Action Taken by Nursing 07/21/19 15:31 Temperature Temperature Source Pulse Rate 60 Pulse Rate from SpO2 Sensor 52 L Respiratory Rate 12 Respiratory Effort / Characteristics Respiratory Depth Respiratory Pattern Blood Pressure Blood Pressure Mean Blood Pressure Position Pulse Oximetry 97 Oxygen Delivery Method Sepsis Recent Fever Within 48 Hours Sepsis New/Unexplained Change in Mental Status Sepsis Action Taken by Nursing GENERAL: Well nourished, non-toxic. EYE EXAM: Normal conjunctiva. PERRL, no anisocoria and EOM's grossly intact w/o pain. OROPHARYNX: Moist mucous membranes. Grossly normal dentition. NECK: Supple, no nuchal rigidity, no adenopathy, non-tender. No signs of meningismus. LUNGS: Clear to auscultation. Normal chest wall mechanics. HEART: NSR, no MRG. CHEST: No reproducible chest wall TTP. Well healed sternotomy scar. ABDOMEN: Abdomen soft, non-tender, normo-active bowel sounds, no masses, no rebound or guarding. BACK: No CVA TTP. SKIN: No rashes and no bruising. UPPER EXTREMITIES: Upper extremities are grossly normal. LOWER EXTREMITIES: Trace symmetrical pretibial edema. No calf pain. Negative Homans sign. NEURO EXAM: A&O x3, cranial nerves II-XII grossly intact, normal speech, moves all 4 extremities on command w/o issue. Course Course 1247: The patient was evaluated in room C9. A complete history and physical exam was performed. 1249: Orders were placed and the patient was started on a monitoring coordinator. 1331: I reevaluated the patient and he is feeling better after the second Nitroglycerin was given. 1402: I reevaluated the patient and updated him on his test results. I discussed the treatment plan with him. He verbally agrees and understands. 1417: I [facility] He will evaluate the patient for further management. Administered Medications Nitroglycerin (Nitrostat) 0.4 mg SL PRN PRN PRN Reason: Chest Pain Stop: 08/20/19 13:02 Last Admin: 07/21/19 13:15 Dose: 0.4 mg Documented by: [id number] Discontinued Medications Acetaminophen (Tylenol) 650 mg PO NOW STA Stop: 07/21/19 13:26 Last Admin: 07/21/19 13:29 Dose: 650 mg Documented by: [id number] Aspirin (Aspirin) 324 mg PO NOW STA Stop: 07/21/19 13:04 Last Admin: 07/21/19 13:09 Dose: 324 mg Documented by: [id number] Nitroglycerin (Nitrostat) 0.4 mg SL NOW STA Stop: 07/21/19 13:04 Last Admin: 07/21/19 13:09 Dose: 0.4 mg Documented by: [id number] Medical Decision Making Differential Diagnosis Differential diagnoses includes but is not limited to acute coronary syndrome, myocardial infarction, pericarditis, pulmonary embolus, aortic dissection, pneumonia, pneumothorax, musculoskeletal, shingles, esophageal. Medical Records Attestation: I reviewed the patient's medical records. Home Medications Current Medication List: was personally reviewed by me Laboratory Data Attestation: I reviewed the patient's lab results. Result diagrams: 07/21/19 13:02 07/21/19 13:02 Lab Results 07/21/19 07/21/19 07/21/19 Range/Units 13:02 13:02 13:02 WBC 5.03 (4.8-10.8) K/uL RBC 4.58 L (4.7-6.1) M/uL Hgb 12.1 L (14.0-18.0) g/dL Hct 36.3 L (42-52) % MCV 79.3 L (80-100) fL MCH 26.4 (25-34) pg MCHC 33.3 (32-36) g/dL RDW Std Deviation 45.3 (36.4-46.3) fL RDW Coeff of [place] 15.6 H (11.5-14.5) % Plt Count 173 (130-400) K/uL MPV 9.0 (7.4-10.4) fL Immature Gran % (Auto) 0.4 % Neut % (Auto) 49.9 % Lymph % (Auto) 32.0 % Hind[place] % (Auto) 12.1 % Eos % (Auto) 5.0 % Baso % (Auto) 0.6 % Immature Gran # (Auto) 0.02 (0.00-0.02) K/uL Neut # (Auto) 2.51 (1.4-6.5) K/uL Lymph # (Auto) 1.61 (1.2-3.4) K/uL Hind[place] # (Auto) 0.61 H (0.11-0.59) K/uL Eos # (Auto) 0.25 (0-0.5) K/uL Baso # (Auto) 0.03 (0-0.2) K/uL PT 29.8 H (9.0-12.0) Seconds INR 3.2 H (0.9-1.1) APTT 33.6 H (21.0-31.0) Seconds PTT Ratio 1.2 Sodium 131 L (136-145) mmol/L Potassium 3.7 (3.5-5.1) mmol/L Chloride 100 (98-107) mmol/L Carbon Dioxide 25 (21-32) mmol/L Anion Gap 6.0 (3-11) BUN 12 (7-18) mg/dl Creatinine 0.98 (0.6-1.4) mg/dl Est Cr Clr Drug Dosing 75.9 ml/min Est GFR ( Amer) 82.9 Est GFR (Non-Af Amer) 71.5 BUN/Creatinine Ratio 11.9 (10-20) Glucose 122 H (70-99) mg/dl Calcium 8.9 (8.5-10.1) mg/dl Total Bilirubin 0.5 (0.2-1) mg/dl AST 34 (15-37) U/L ALT 38 (12-78) U/L Alkaline Phosphatase 99 (45-117) U/L Troponin I < 0.015 (0-0.045) ng/ml Total Protein 8.1 (6.4-8.2) gm/dl Albumin 4.1 (3.4-5.0) gm/dl Globulin 4.0 (2.5-4.0) gm/dl Albumin/Globulin Ratio 1.0 (0.9-2) Lipase 139 (73-393) U/L Imaging Data Radiologist's Impression: Radiology results as stated below per my review and the radiologist's interpretation: XR chest 1V portable CLINICAL HISTORY: Chest Pain COMPARISON STUDY: Chest radiograph January 04, 2019. FINDINGS: Lung volumes are normal. Lungs are clear. There is no pneumothorax or pleural effusion. Mild cardiomegaly is noted. Mediastinal contours are normal. There is no evidence for pulmonary edema. There are median sternotomy wires and mediastinal surgical clips. IMPRESSION: No acute cardiopulmonary findings. ACT 112: Negative or not required by law. Electronically signed by: Sunday Jeffries M.D. 07/21/2019 2:33 PM ECG Data Attestation: I personally reviewed and interpreted this ECG as follows: Indication: + chest pain Rate (beats per minute): 67 Rhythm: + sinus rhythm ECG Intervals/blocks: + First degree AV block ECG [place]: + Normal ECG ST segments: + T-wave inversions (inferior, lateral) ECG Findings: + Other (prolonged [place]) Comparison ECG Date: from (01/04/2019) Change: the following changes noted (lateral T-wave inversion is new) Blood Pressure Blood Pressure Findings: Normal blood pressure Blood Pressure Disposition: did not require urgent referral MDM Narrative The patient is an 84 year old male w/ PMHx CABG x3, hip arthroplasty, knee arthroplasty, carpal tunnel surgery, HTN, lumbar stenosis, and paroxysmal atrial fibrillation who presents to the ED w/ CC of intermittent chest pain starting a few weeks ago. Patient was seen and evaluated the bedside. The patient does present with concern for chest discomfort. Mildly exertional especially going up or down the stairs per the patient's . Patient does have a prior history of bypass and does see Dr. Middleton with [facility] cardiology. Blood work was obtained along with an EKG and troponin. The patient was given sublingual nitro and a full dose aspirin. Patient is currently anticoagulated due to history of A. fib. EKG does not appear to be acutely changed currently not in A. fib. The patient's troponin is not elevated. The patient's chest pain did improve with nitro. Given this concern with his prior history and elevated heart score he does have moderate risk and would benefit from observation. I did speak the on- call hospitalist who agreed to further evaluate treat the patient. Patient was subsequently admitted to the medicine service. Patient is currently chest pain-free. Impression & Plan Atypical chest pain, History of coronary artery bypass graft, Supratherapeutic INR, Anemia Discharge Plan Visit Data *Final* Discharge Date/Time: 07/21/19 16:43 Chief Complaint: Chest Pain Stated Complaint: UPPER LEFT CHEST PAIN- CARDIAC HX ED Provider: Delgado Prakash Discharge Problem: Atypical chest pain, History of coronary artery bypass graft, Supratherapeutic INR, Anemia Patient Disposition: Admitted As Inpatient Discharge Instructions Interventions: ED Discharge Assessment Last Done: 07/21/19 16:43 Discharge Problem: Anemia Qualifiers: Anemia type: unspecified type Qualified Code(s): D64.9 - Anemia, unspecified The scribe's documentation has been prepared under my direction and personally reviewed by me in its entirety. I confirm that the note above accurately reflects all work, treatment, procedures, and medical decision making performed by me.
[2019-07-21] MEDS: ACETAMINOPHEN 325 MG TAB PO PRN (20:15)
[2019-07-21] MEDS: METOPROLOL TARTRATE 25 MG TAB PO SCH (20:15)
[2019-07-21] MEDS ORDERED: ATORVASTATIN 40 MG TAB PO SCH (21:00)
--- NOTE | 2019-07-22 06:01 | Electrocardiogram Report ---
Test Reason : Blood Pressure : / mmHG Vent. Rate : 067 BPM Atrial Rate : 067 BPM P-R Int : 254 ms QRS Dur : 090 ms QT Int : 416 ms P-R-T Axes : 043 071 046 degrees QTc Int : 439 ms Sinus rhythm with 1st degree A-V block Premature ventricular complexes Cannot rule out Anterior infarct (cited on or before 04-JAN-2019) Nonspecific T wave abnormality Abnormal ECG When compared with ECG of 04-JAN-2019 12:54, Premature ventricular complexes are now Present Confirmed by Mervin Last ([id number]) on 07/22/2019 6:01:17 AM Referred By: ED Confirmed By:Mervin Last
[2019-07-22] MEDS ORDERED: AMLODIPINE BESYLATE 5 MG TAB PO ONE (07:33)
[2019-07-22 07:36] LABS: BUN Creatinine Ratio 13.2 (10-20); Est GFR (African American) 79.9; Est GFR (Non-African American) 68.9; Potassium 4.3 mmol/L (3.5-5.1)
[2019-07-22] MEDS: ACETAMINOPHEN 325 MG TAB PO PRN (07:56)
[2019-07-22] MEDS: METOPROLOL TARTRATE 25 MG TAB PO SCH (07:57)
[2019-07-22] MEDS ORDERED: PANTOprazole 40 MG TAB PO SCH (09:00)
[2019-07-22] MEDS ORDERED: CLOPIDOGREL BISULFATE 75 MG TAB PO SCH (09:00)
[2019-07-22] MEDS ORDERED: ISOSORBIDE MONO EXTENDED REL 30 MG TABCR PO SCH (09:00)
[2019-07-22] MEDS ORDERED: ASPIRIN 81 MG ECTAB PO SCH (09:00)
--- NOTE | 2019-07-22 09:27 | Cardiology Consultation ---
Date of Consultation July 22, 2019 Assessment & Plan (1) Coronary artery disease: (2) S/P CABG x 3: (3) Chest pain: (4) Paroxysmal atrial fibrillation: (5) Supratherapeutic INR: (6) Hypertension: Complex 84-year-old patient admitted with chest and shoulder discomfort. Cardiac enzymes negative. ECG demonstrates nonspecific lateral T wave abnormality which is unchanged compared to prior ECGs as reviewed in the [facility] record. Blood pressure elevated this morning. Will add amlodipine. 10 mg ordered by hospitalist, however, will reduce dose to 5 mg daily to allow for possible titration of isosorbide monohydrate. Review of cardiac catheterization performed in 2019 demonstrates an LAD stenosis which is not amenable to PCI as well as a 70% OM stenosis, however, there was no evidence of inducible ischemia in the OM territory per nuclear perfusion imaging. Recommend optimization of medical therapy and blood pressure control at this time. If blood pressure improves, would recommend discharge on 5 mg amlodipine daily in addition to current medications. Appropriate of sublingual nitroglycerin reviewed. He will then follow-up with his outpatient patient care technician to discuss potential referral for intervention of the obtuse marginal branch vessel if anginal symptoms are not controlled. History of Present Illness Reason for Consultation: Chest discomfort Requesting Physician: Dr. Escoto Attending Physician: Christiano Deleon MD History of Present Illness 83-year-old patient presented to the emergency department with chest discomfort. Patient describes intermittent tightness involving the left side of his chest and left shoulder. Discomfort is not necessarily associated with exertion. Reports that exertion seems to improve with activity and walking. He has not used any sublingual nitroglycerin. ECG demonstrates normal sinus rhythm with nonspecific T wave abnormality. When compared to ECG from [facility] records dated 12/2018: Nonspecific T wave abnormality has replaced inverted T waves in the lateral leads. Currently, patient resting comfortably. Denies chest discomfort or tightness. Received a 10 mg dose of amlodipine this morning due to systolic blood pressure of 191. Patient is requesting discharge today. is present at bedside. Patient complains mainly of discomfort of his fingers and toes related to neuropathy. Reports stable functional capacity. No lightheadedness, dizziness, palpitations, syncope, or near syncope. Denies orthopnea, PND, lower extremity edema, weight gain, or claudication. Compliant with current medications. Offers no other concerns/complaints this time. Cardiac catheterization report summary 01/09/2019: RHODES-LAD, SVG-OM and SVG-PDA grafts are all patent.There is a 95% lesion in the apical LAD, distal to RHODES-LAD anastomosis. This is the area that corresponded to abnormal perfusion on nuclear stress test. However, this is a small vessel and not amenable to PCI. Recommend medical management.There is a 70% lesion in the 1st Marginal distal to SVG-OM graft anastomosis. No abnormal perfusion in this area on nuclear stress test.Occluded algaaciq arteries including ostial PDA, mid LCx and mid LAD. Lexiscan nuclear stress report summary 01/04/2019: Abnormal combined low intensity exercise/pharmacologic nuclear stress test. Symptoms of chest and neck burning consistent with angina reproduced. Ischemic EKG changes observed as described below. There were two reversible perfusion defects, a small sized anteroseptal perfusion defect, and a separate perfusion defect of moderate size and intensity encompassing the apex, and the apical and mid portions of the inferior wall. Gated SPECT imaging reveals mild inferior wall hypokinesis. The calculated left ventricular ejection fraction=57% The abnormal test results were discussed with the patient in accordance with act 112, by the interpreting physician. Same day cardiology follow-up was arranged which took place immediately following the stress test. The patient was referred to the local emergency department for further assessment and treatment. The patient's symptoms and EKG changes and resolved prior to leaving the department. 2D echocardiogram report 01/05/2019: No LV segmental wall motion abnormalities. The left ventricular systolic function is normal. The qualitative LV ejection fraction is 55-59% (normal). The right ventricular size is qualitatively normal. Image resolution does not allow for accurate measurement. The right ventricular systolic function is qualitatively normal. Allergies Allergy/AdvReac Type Severity Reaction Status Date / Time bee venom protein (honey bee) Allergy Unknown swelling Verified 07/21/19 13:18 iodine Allergy Unknown DUE TO Verified 07/21/19 13:18 SHELLFISH ALLERGY-IODINATED DYE-UNKNOWN morphine Allergy Unknown stopped Verified 07/21/19 13:18 breathing Penicillins Allergy Unknown RASH Verified 07/21/19 13:18 shellfish derived Allergy Unknown ANAPHYLAXIS Verified 07/21/19 13:18 Home Medications Home Medications Medication Instructions Recorded Confirmed Type aspirin 81 mg PO QAM 07/21/19 07/21/19 History atorvastatin 80 mg PO PM 07/21/19 07/21/19 History clopidogrel 75 mg PO QAM 07/21/19 07/21/19 History isosorbide mononitrate 30 mg PO QAM 07/21/19 07/21/19 History metformin 500 mg PO QAM 07/21/19 07/21/19 History metoprolol tartrate 12.5 mg PO BID 07/21/19 07/21/19 History pantoprazole 40 mg PO QAM 07/21/19 07/21/19 History warfarin 2.5 mg PO SUTUTHSA 07/21/19 07/21/19 History warfarin 5 mg PO MOWEFR 07/21/19 07/21/19 History Patient History Medical History Coronary artery disease Diabetes mellitus type 2 with complications Dyslipidemia Hypertension (Chronic) Lumbar stenosis Paroxysmal atrial fibrillation (Chronic) Surgical History History of carpal tunnel surgery "bilateral" 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; [place]" S/P total hip arthroplasty S/P total knee arthroplasty Family History Father Coronary heart disease Other Family history non-contributory Social History Preferred Language: [place] Islander Communication Ability: Effective Boat Master Required: No Beliefs That Will Affect Care: None marital status: Current Living Situation: Spouse current occupational status: retired Other Information That Helps Us Care for You: No Feels Safe at Home: Yes Safety Concerns: Feels Safe At This Time Smoking Status: Unknown if ever smoked Hx Alcohol Use: No Hx Substance Use: No Review of Systems Review of Systems: All systems reviewed & are unremarkable except as noted in HPI & below Physical Exam Constitutional: well developed, well nourished and average body habitus; no acute distress Respiratory: normal respiratory effort, lungs clear to auscultation Cardiovascular: Rate/Rhythm: regular rate and regular rhythm Heart Sounds: normal S1 and normal S2; no murmur Vessels: radial pulses present; no JVD and no carotid bruit Extremities: no edema Gastrointestinal (Abdomen): Inspection/Auscultation: abdomen normal to inspection and normal bowel sounds; abdomen not distended Percussion/Palpation: abdomen soft; abdomen nontender, no guarding and abdomen not rigid Musculoskeletal: no cyanosis or clubbing, extremities motor strength 5/5 Neurologic: moves all extremities; no focal motor deficits Speech / Cognition: normal speech Psychiatric: A+Ox3, euthymic affect Results & Data Vital Signs (Past 12 Hours) Vital Signs Temp Pulse Pulse Resp BP BP Pulse Ox 07/22/19 07:14 36.4 C L 63 20 190/92 H 191/88 H 98 07/22/19 04:03 36.6 C 56 L 16 158/86 H 97 07/21/19 23:38 54 L 07/21/19 23:30 36.7 C 52 L 18 157/78 H 98 Laboratory Results Laboratory Results - last 24 hr 07/21/19 07/21/19 07/21/19 13:02 13:02 13:02 WBC 5.03 RBC 4.58 L Hgb 12.1 L Hct 36.3 L MCV 79.3 L MCH 26.4 MCHC 33.3 RDW Std Deviation 45.3 RDW Coeff of Geron[place] 15.6 H Plt Count 173 MPV 9.0 Immature Gran % (Auto) 0.4 Neut % (Auto) 49.9 Lymph % (Auto) 32.0 Stephens % (Auto) 12.1 Eos % (Auto) 5.0 Baso % (Auto) 0.6 Immature Gran # (Auto) 0.02 Neut # (Auto) 2.51 Lymph # (Auto) 1.61 Stephens # (Auto) 0.61 H Eos # (Auto) 0.25 Baso # (Auto) 0.03 PT 29.8 H INR 3.2 H APTT 33.6 H PTT Ratio 1.2 Sodium 131 L Potassium 3.7 Chloride 100 Carbon Dioxide 25 Anion Gap 6.0 BUN 12 Creatinine 0.98 Est Cr Clr Drug Dosing 75.9 Est GFR ( Amer) 82.9 Est GFR (Non-Af Amer) 71.5 BUN/Creatinine Ratio 11.9 Glucose 122 H Estimat Average Glucose Hemoglobin A1c Calcium 8.9 Total Bilirubin 0.5 AST 34 ALT 38 Alkaline Phosphatase 99 Troponin I < 0.015 Total Protein 8.1 Albumin 4.1 Globulin 4.0 Albumin/Globulin Ratio 1.0 Triglycerides Cholesterol LDL Cholesterol, Calc VLDL Cholesterol, Calc HDL Cholesterol Cholesterol/HDL Ratio Lipase 139 07/21/19 07/22/19 07/22/19 18:46 06:57 06:57 WBC RBC Hgb Hct MCV MCH MCHC RDW Std Deviation RDW Coeff of Geronimo Plt Count MPV Immature Gran % (Auto) Neut % (Auto) Lymph % (Auto) Stephens % (Auto) Eos % (Auto) Baso % (Auto) Immature Gran # (Auto) Neut # (Auto) Lymph # (Auto) Stephens # (Auto) Eos # (Auto) Baso # (Auto) PT INR APTT PTT Ratio Sodium 133 L Potassium 4.3 D Chloride 101 Carbon Dioxide 27 Anion Gap 5.0 BUN 13 Creatinine 1.01 Est Cr Clr Drug Dosing 73.0 Est GFR ( Amer) 79.9 Est GFR (Non-Af Amer) 68.9 BUN/Creatinine Ratio 13.2 Glucose 121 H Estimat Average Glucose Pending Hemoglobin A1c Pending Calcium 9.0 Total Bilirubin AST ALT Alkaline Phosphatase Troponin I < 0.015 Total Protein Albumin Globulin Albumin/Globulin Ratio Triglycerides 139 Cholesterol 90 LDL Cholesterol, Calc 24 VLDL Cholesterol, Calc 28 HDL Cholesterol 38 Cholesterol/HDL Ratio 2 Lipase (1) Hypertension Hypertension type: essential hypertension Qualified Code(s): I10 - Essential (primary) hypertension
--- NOTE | 2019-07-22 11:46 | Hospitalist Progress Note ---
Date of Service July 22, 2019 Assessment & Plan (1) Coronary artery disease: History of coronary artery disease, status post three-vessel CABG in 2014. Positive nuclear stress test in December 2018 with patent bypass grafts as summarized in HPI. Distal LAD stenosis noted, not amenable to PCI. Medical management recommended and nitrates added to regimen. Worsening chest discomfort today after doing some errands. Initial troponin is normal. EKG shows NSR with inferolateral T-wave inversions; inverted T-waves V5-V6 new compared to 01/04/19. Continue aspirin, clopidogrel, metoprolol, isosorbide mononitrate, and statin. as per lockstitch machine operator 07/22/2019 ("Complex 84-year-old patient admitted with chest and shoulder discomfort. Cardiac enzymes negative. ECG demonstrates nonspecific lateral T wave abnormality which is unchanged compared to prior ECGs as reviewed in the [facility] record. Blood pressure elevated this morning. Will add amlodipine. 10 mg ordered by hospitalist, however, will reduce dose to 5 mg daily to allow for possible titration of isosorbide monohydrate. Review of cardiac catheterization performed in 2018 demonstrates an LAD stenosis which is not amenable to PCI as well as a 70% OM stenosis, however, there was no evidence of inducible ischemia in the OM territory per nuclear perfusion imaging. Recommend optimization of medical therapy and blood pressure control at this time. If blood pressure improves, would recommend discharge on 5 mg amlodipine daily in addition to current medications") Patient did not allow for close monitoring and blood pressure adjustments by hospitalist medical doctor as inpatient and blood pressure remained elevated. Patient prefers to go home and follow up with usual lockstitch machine operator Dr. Middleton. Dr. Livingston asked to notfify cardiology office. Patient agreed to take amlodipine prescription of 5 mg daily. Patient signed out Against Medical Advice in context of undertreated hypertension in contest of known coronary artery disease (2) Paroxysmal atrial fibrillation: Currently in normal sinus rhythm. Continue metoprolol and warfarin. (3) Hypertension: Continue metoprolol and nitrates. (4) Diabetes mellitus type 2 with complications: Random blood sugar 122. Check hemoglobin A1c. resuming home dose diabetes medications as outpatient (5) Dyslipidemia: on atorvastatin. (6) DVT prophylaxis: Continue warfarin, titrate dose. (7) Discharge planning issues: signed out against medical advice; close follow up with cardiology clinic advised to patient Subjective Patient not in distress. at the bedside. patient reports chest discomfort on and off. no shortness of breath. breathing on room air. no abdominal pain. no nausea and vomiting. Patient did not allow for close monitoring and blood pressure adjustments by hospitalist medical doctor as inpatient and blood pressure remained elevated. Patient prefers to go home and follow up with usual lockstitch machine operator Dr. Middleton. Dr. Livingston asked to notfify cardiology office. Patient agreed to take amlodipine prescription of 5 mg daily. Patient signed out Against Medical Advice in context of undertreated hypertension in contest of known coronary artery disease Review of Systems Review of Systems: All systems reviewed & are unremarkable except as noted in HPI & below Physical Exam Constitutional: comfortable Eyes: PERRL, conjunctivae normal, anicteric sclerae EOM intact bilaterally ENMT: external ear and nose normal, oropharynx normal Neck: normal visual inspection Respiratory: normal respiratory effort, lungs clear to auscultation Cardiovascular: Rate/Rhythm: regular rate and regular rhythm Gastrointestinal (Abdomen): normal bowel sounds, soft, nontender, no hepatosplenomegaly Musculoskeletal: Head/Neck/Chest: normocephalic and head atraumatic Neurologic: PERRL, EOMI, accommodation nl, no face palsy, no dysarthria CN's II-XI intact bilaterally Psychiatric: A+Ox3, euthymic affect Results & Data Vital Signs (Past 12 Hours) Vital Signs Temp Pulse Pulse Resp BP BP Pulse Ox 07/22/19 09:23 53 L 07/22/19 07:14 36.4 C L 63 20 190/92 H 191/88 H 98 07/22/19 04:03 36.6 C 56 L 16 158/86 H 97 (1) Hypertension Hypertension type: essential hypertension Qualified Code(s): I10 - Essential (primary) hypertension
--- NOTE | 2019-07-22 11:54 | Discharge Summary ---
Date of Service July 22, 2019 Admission HPI Per Admitting Provider 84-year-old male followed by Dr. Vazquez for Family Medicine and Dr. Middleton for Cardiology. History of coronary artery disease, status post 3-vessel CABG in 2013, paroxysmal atrial fibrillation, diabetes, and other problems detailed below. Nuclear stress study was abnormal in December 2018. Cardiac catheterization at [facility] on 12/28/2018 showed patency of his RHODES to LAD graft, patency of SVG to obtuse marginal, and patency of SVG to PDA. 95% stenosis of apical LAD was noted, but the vessel was small and not amenable to PCI. T There was also 70% stenosis of the OM1 distal to the SVG-OM graft. Medical management was recommended. Recently experiences daily mild chest pressure, relieved by acetaminophen. This morning, chest pressure was a bit more severe after doing some errands and he mentioned it to his who encouraged him to come to the ED for evaluation. The pressure radiated towards his left neck. No associated dyspnea, diaphoresis, nausea, vomiting. In the ED, he received sublingual nitroglycerin with relief of the chest pressure. Admission Exam Per Admitting Provider WD/WN, vitals as above no acute distress Eyes: PERRL, conjunctivae normal, anicteric sclerae ENMT: external ear and nose normal, oropharynx normal Ears: + hearing impairment Neck: trachea midline, no thyromegaly Respiratory: normal respiratory effort, lungs clear to auscultation Cardiovascular: Rate/Rhythm: regular rate Heart Sounds: no gallop, no murmur and no cardiac rub Vessels: no JVD Extremities: normal capillary refill; no calf tenderness and no edema carotid, radial, popliteal pulses symmetric Gastrointestinal (Abdomen): normal bowel sounds, soft, nontender, no hepatosplenomegaly Musculoskeletal: Head/Neck/Chest: neck supple Extremities: strength 5/5 throughout; no cyanosis and no clubbing Skin: no rashes, warm and dry Neurologic: PERRL, EOMI no facial palsy no dysarthria or aphasia Psychiatric: Orientation: alert and oriented x 3 Affect: euthymic affect Lymphatic: no cervical lymphadenopathy Principal Diagnosis chest pain, ischemic heart disease (Coronary artery disease and S/P CABG x 3 in the past), paroxysmal atrial fibrillation, hypertensive urgency/hypertension. PATIENT SIGNED OUT AGAINST MEDICAL ADVICE Discharge Exam Constitutional comfortable Eyes PERRL, conjunctivae normal, anicteric sclerae EOM intact bilaterally ENMT external ear and nose normal, oropharynx normal Neck normal visual inspection Respiratory normal respiratory effort, lungs clear to auscultation Cardiovascular Rate/Rhythm: regular rate and regular rhythm Gastrointestinal (Abdomen) normal bowel sounds, soft, nontender, no hepatosplenomegaly Musculoskeletal Head/Neck/Chest: normocephalic and head atraumatic Neurologic PERRL, EOMI, accommodation nl, no face palsy, no dysarthria CN's II-XI intact bilaterally Psychiatric A+Ox3, euthymic affect Discharge Data Allergies Allergy/AdvReac Type Severity Reaction Status Date / Time bee venom protein (honey bee) Allergy Unknown swelling Verified 07/21/19 13:18 iodine Allergy Unknown DUE TO Verified 07/21/19 13:18 SHELLFISH ALLERGY-IODINATED DYE-UNKNOWN morphine Allergy Unknown stopped Verified 07/21/19 13:18 breathing Penicillins Allergy Unknown RASH Verified 07/21/19 13:18 shellfish derived Allergy Unknown ANAPHYLAXIS Verified 07/21/19 13:18 Consultations 07/21/19 14:18 ED Decision to Admit Stat 07/21/19 16:49 Consult Cardiology Routine Hospital Course (1) Coronary artery disease: History of coronary artery disease, status post three-vessel CABG in 2013. Positive nuclear stress test in December 2018 with patent bypass grafts as summarized in HPI. Distal LAD stenosis noted, not amenable to PCI. Medical management recommended and nitrates added to regimen. Worsening chest discomfort today after doing some errands. Initial troponin is normal. EKG shows NSR with inferolateral T-wave inversions; inverted T-waves V5-V6 new compared to 01/04/19. Continue aspirin, clopidogrel, metoprolol, isosorbide mononitrate, and statin. as per pellet machine operator 07/22/2019 ("Complex 84-year-old patient admitted with chest and shoulder discomfort. Cardiac enzymes negative. ECG demonstrates nonspecific lateral T wave abnormality which is unchanged compared to [facility] Blood pressure elevated this morning. Will add amlodipine. 10 mg ordered by hospitalist, however, will reduce dose to 5 mg daily to allow for possible titration of isosorbide monohydrate. Review of cardiac catheterization performed in 2019 demonstrates an LAD stenosis which is not amenable to PCI as well as a 70% OM stenosis, however, there was no evidence of inducible ischemia in the OM territory per nuclear perfusion imaging. Recommend optimization of medical therapy and blood pressure control at this time. If blood pressure improves, would recommend discharge on 5 mg amlodipine daily in addition to current medications") Patient did not allow for close monitoring and blood pressure adjustments by hospitalist medical doctor as inpatient and blood pressure remained elevated. Patient prefers to go home and follow up with usual pellet machine operator Dr. Middleton. Dr. Livingston asked to notfify cardiology office. Patient agreed to take amlodipine prescription of 5 mg daily. Patient signed out Against Medical Advice in context of undertreated hypertension in contest of known coronary artery disease (2) Paroxysmal atrial fibrillation: Currently in normal sinus rhythm. Continue metoprolol and warfarin. (3) Hypertension: Continue metoprolol and nitrates. (4) Diabetes mellitus type 2 with complications: Random blood sugar 122. Check hemoglobin A1c. resuming home dose diabetes medications as outpatient (5) Dyslipidemia: on atorvastatin. (6) DVT prophylaxis: Continue warfarin, titrate dose. (7) Discharge planning issues: signed out against medical advice; close follow up with cardiology clinic advised to patient Total Time Total Time Spent Total Time Spent (In Minutes): 40 MINUTES Total Time Includes: Examination of the Patient, Discharge Planning, Medication Reconciliation and Communication With Other Providers Discharge Plan Discharge Items Patient Disposition: Against Medical Advice Reason For Visit: CHEST PAIN Discharge Diagnosis: chest pain, ischemic heart disease (Coronary artery disease and S/P CABG x 3 in the past), paroxysmal atrial fibrillation, hypertensive urgency/hypertension. PATIENT SIGNED OUT AGAINST MEDICAL ADVICE Condition on Discharge: Fair Activity: Per Instructions section Non-emergency contact: Primary Care Provider and Camera Control Operator Call non-emergency contact if: you have any medication questions Follow-up/Referrals: Angelo Vazquez MD [Primary Care Provider] - Diet: Carb Consistent or DM2 and Heart Healthy Addtl Attending Provider Instructions: as per pellet machine operator "Complex 84-year-old patient admitted with chest and shoulder discomfort. Cardiac enzymes negative. ECG demonstrates nonspecific lateral T wave abnormality which is unchanged compared to [facility]. Blood pressure elevated this morning. Will add amlodipine. 10 mg ordered by hospitalist, however, will reduce dose to 5 mg daily to allow for possible titration of isosorbide monohydrate. Review of cardiac catheterization performed in 2019 demonstrates an LAD stenosis which is not amenable to PCI as well as a 70% OM stenosis, however, there was no evidence of inducible ischemia in the OM territory per nuclear perfusion imaging. Recommend optimization of medical therapy and blood pressure control at this time. If blood pressure improves, would recommend discharge on 5 mg amlodipine daily in addition to current medications" Patient did not allow for close monitoring and blood pressure adjustments by hospitalist medical doctor as inpatient and blood pressure remained elevated. Patient prefers to go home and follow up with usual pellet machine operator Dr. Middleton. Dr. Livingston asked to [facility] cardiology office. Patient agreed to take amlodipine prescription of 5 mg daily. Patient signed out Against Medical Advice in context of undertreated hypertension in contest of known coronary artery disease Pending Studies at Discharge: No Stand-Alone Forms: [facility] [employer], Smoking Cessation Medications and DC Order Prescriptions: New amlodipine 5 mg tablet 5 mg PO QAM 30 Days Qty: 30 RF: 0 Continued metformin 500 mg Tablet 500 mg PO QAM RF: 0 atorvastatin 80 mg Tablet 80 mg PO PM RF: 0 isosorbide mononitrate 30 mg Tablet Extended Release 24 Hr 30 mg PO QAM RF: 0 clopidogrel 75 mg Tablet 75 mg PO QAM RF: 0 aspirin 81 mg Tablet,Delayed Release (Dr/Ec) 81 mg PO QAM RF: 0 pantoprazole 40 mg Tablet,Delayed Release (Dr/Ec) 40 mg PO QAM RF: 0 warfarin 5 mg Tablet 5 mg PO MOWEFR RF: 0 warfarin 5 mg Tablet 2.5 mg PO SUTUTHSA RF: 0 metoprolol tartrate 25 mg Tablet 12.5 mg PO BID RF: 0 Discharge Orders: Left Against Medical Advice (Routine); Ordered 07/22/19 Ordered By: Christiano Deleon Admission Data Admit Date/Time: 07/21/19 15:34 Attending Provider: Christiano Deloen Admit Provider: Cecil Escoto Primary Care Provider: Angelo Vazquez Other Providers: Cecil Escoto ; Ponce Livingston
[2019-07-22] MEDS ORDERED: WARFARIN SOD 2.5 MG TAB PO SCH (16:00)
--- NOTE | 2019-07-22 21:53 | Electrocardiogram Report ---
Test Reason : Blood Pressure : / mmHG Vent. Rate : 060 BPM Atrial Rate : 060 BPM P-R Int : 260 ms QRS Dur : 094 ms QT Int : 448 ms P-R-T Axes : 062 064 043 degrees QTc Int : 448 ms Sinus rhythm with 1st degree A-V block Nonspecific T wave abnormality Abnormal ECG When compared with ECG of 21-JUL-2019 12:49, Premature ventricular complexes are no longer Present Confirmed by Mervin Last ([id number]) on 07/22/2019 9:52:46 PM Referred By: REFERRED SELF Confirmed By:Mervin Last
[2019-07-23 06:20] LABS: Estimated Average Glucose 166 mg/dl; Hemoglobin A1C 7.4 % (4.5-5.6)
[2019-07-23] MEDS ORDERED: AMLODIPINE BESYLATE 5 MG TAB PO SCH ×2 (09:00)
== END 2019-07-22 12:40 | disposition left against medical advice (07) ==
LOC: 2S 12:35 → ED 12:35 → SUATTDRO 15:34 → 2S 16:43

== ENCOUNTER 2021-05-31 12:51 | Inpatient (IN) ==
[2021-05-31] MEDS ORDERED: ONDANSETRON INJ 2 MG/ML 2 ML VIAL IV STA (14:50)
[2021-05-31] MEDS ORDERED: SODIUM CHLORIDE 0.9% 1000ML 1,000 ML IV STA (14:50)
[2021-05-31] MEDS ORDERED: SODIUM CHLORIDE 0.9% 1000ML 500 ML IV ONE (14:50)
[2021-05-31 14:52] LABS: Basophils # (auto) 0.02 K/uL (0-0.2); Basophils % (auto) 0.2 %; Eosinophils # (auto) 0.08 K/uL (0-0.5); Eosinophils % (auto) 0.9 %; Hematocrit (blood only) 35.4 % (42-52); Hemoglobin 12.3 g/dL (14.0-18.0); Immature Granulocytes # (auto) 0.02 K/uL (0.00-0.02); Immature Granulocytes % (auto) 0.2 %; Lymphocytes # (auto) 1.26 K/uL (1.2-3.4); Lymphocytes % (auto) 13.8 %; Mean Corpuscular Hemoglobin 28.1 pg (25-34); Mean Corpuscular Hgb Conc 34.7 g/dL (32-36); Mean Corpuscular Volume 80.8 fL (80-100); Mean Platelet Volume 9.4 fL (7.4-10.4); Monocytes # (auto) 1.34 K/uL (0.11-0.59); Monocytes % (auto) 14.6 %; Neutrophils # (auto) 6.44 K/uL (1.4-6.5); Neutrophils % (auto) 70.3 %; Platelet Count 174 K/uL (130-400); RDW Coefficient of Variation 14.5 % (11.5-14.5); Red Blood Count 4.38 M/uL (4.7-6.1); White Blood Count 9.16 K/uL (4.8-10.8)
--- NOTE | 2021-05-31 15:03 | XRay Report ---
XR chest 1V portable HISTORY: 86 years-old Male weakness acute weakness COMPARISON: Chest radiograph 04/20/2021 TECHNIQUE: Portable AP view of the chest FINDINGS: Cardiac silhouette is mildly enlarged, unchanged. Prior median sternotomy with suggested CABG. There is no pneumothorax, pleural effusion, airspace consolidation or overt pulmonary edema. Mild chronic i nterstitial coarsening of the lung bases. Degenerative changes of the spine and shoulders. IMPRESSION: No acute process. ACT 112: Negative or not required by law. The above report was generated using voice recognition software. It may contain grammatical, syntax o r spelling errors. Electronically signed by: Viet Whittaker M.D. 05/31/2021 3:01 PM
[2021-05-31 15:12] LABS: Alanine Aminotransferase 28 U/L (12-78); Albumin Level 3.6 gm/dl (3.4-5.0); Aspartate Aminotransferase 30 U/L (15-37); BUN Creatinine Ratio 13.2 (10-20); Blood Urea Nitrogen 13 mg/dl (7-18); Calcium 8.8 mg/dl (8.5-10.1); Carbon Dioxide 20 mmol/L (21-32); Chloride 92 mmol/L (98-107); Creatinine Clr Calc Pharmacy 70.5 ml/min; Est GFR (African American) 82.7 ml/min; Est GFR (Non-African American) 71.4 ml/min; Glucose 111 mg/dl (70-99); Magnesium 1.5 mg/dl (1.8-2.4); Potassium 3.4 mmol/L (3.5-5.1); Sodium 124 mmol/L (136-145)
[2021-05-31] MEDS ORDERED: MAGNESIUM SULFATE / D5W 1 GM/100 ML BAG IV STA (15:17)
[2021-05-31] MEDS ORDERED: POTASSIUM CHLORIDE / WTR 10 MEQ/100 ML PLCT IV ONE (15:17)
--- NOTE | 2021-05-31 15:17 | Emergency Department Note ---
Impression & Plan COVID-19, Acute confusion, Nausea, Diarrhea, Acute electrocardiogram changes, Hypomagnesemia, Acute hyponatremia, Hypokalemia ED Provider Note INFORMANT: Patient and ED PROVIDER(S): Cecil Duron MD CHIEF COMPLAINT: Lightheadedness and dizziness PLAN: Disposition: Admitted Condition: Good Outpatient prescription management: none Referral: None MEDICAL DECISION MAKING: Patient presented because of actually having some flulike symptoms. He did not think he had any Covid exposures. A Covid test was performed and initially was negative. Flu testing was negative as well patient was found to be hyponatremic, hypokalemic and hypomagnesemic. He was hydrated. He was given replacements of his electrolytes. He was feeling better on reassessment. Given his hyponatremia he will need further management in the hospital. I did consult with the [facility]. I did discuss the possibility of repeating his Covid test with a PCR even though they are in limited supply. This was done and his PCR is positive for COVID-19. This would fit with his clinical symptoms. I did discuss this with the patient and . Triage Nursing notes reviewed and agree them. Vital Signs: reviewed and remarkable for hypertension Differential diagnosis: COVID-19, influenza, infection, dehydration, metabolic abnormality, hypo/hyperglycemia, electrolyte disturbance, anemia, hypoxia, cardiac sources, intracerebral event, toxicologic, neurologic, as well as other pathologies. Diagnostics interpreted by me: ECG: Twelve-lead ECG reveals a sinus bradycardia at 56 bpm. First-degree AV block. Prolonged QT interval. Lateral T wave inversions present. When compared to 20 April 2021 the lateral T wave inversions are new. Cardiac Monitoring:Cardiac monitoring ordered by me: The patient was placed on continuous cardiac monitoring and observed. It revealed a normal sinus rhythm at 60 beats per minute without ectopy or evidence of dysrhythmia. Imaging studies: Head CT: A noncontrast CT scan of the head was performed and was negative for tumor, fracture, intracranial hemorrhage, or other acute pathology. Chest x-ray. Findings: A chest x-ray was performed and revealed no pneumothorax, effusion, infiltrate, pulmonary edema, free air under the diaphragm, or wide mediastinum. Impression: No acute disease. HPI: The patient is a 86year old male who presents to the Emergency Room with complaints of lightheadedness and dizziness. This started yesterday and is persisting. The patient also notes the following associated symptoms, nausea, diarrhea, chills, weakness, chronic nasal congestion. states that he has had some labored breathing. Patient is vaccinated against Covid. Denies any known sick contacts. had Covid 2 months ago. The patient has found no relieving factors. Current pain is rated as 0/10. thought the patient had some mild confusion. Pt denies LOC, headache, diaphoresis, visual changes, neck pain, chest pain, vomiting, abdominal pain, back pain, melena, hematochezia, urinary symptoms, numbness, lymphadenopathy, rash, or other complaints. ROS: See above HPI for pertinent positives & negatives. A total of 10 systems reviewed and were otherwise negative. PAST MEDICAL HISTORY:See Below , CAD PAST SURGICAL HISTORY:See Below, CABG FAMILY HISTORY:See Below SOCIAL HISTORY:See Below, HOME MEDICATIONS:See Below ALLERGIES:See Below VITALS:See Below PHYSICAL EXAMINATION: GENERAL: Awake, alert, uncomfortable-appearing, in no distress HENT: Normocephalic, atraumatic. Oropharynx unremarkable. EYES: Normal conjunctiva. Sclera non-icteric. PERRLA. EOMI. NECK: Inspection normal. Non-tender. Supple. No nuchal rigidity. FROM. No masses. RESPIRATORY: Clear to auscultation. No wheezes. No rales. Normal respiratory effort. CARDIAC: Borderline bradycardic rate. Normal rhythm. No murmurs. No rubs. Extremities warm and well perfused. Pulses equal. No JVD. GI: Soft, non-distended. No tenderness to palpation. No rebound or guarding. No masses. RECTAL: Deferred. MUSCULOSKELETAL: Atraumatic. Chest examination reveals no tenderness. The back is symmetrical on inspection without obvious abnormality. There is no CVA tenderness to palpation. No joint edema. LOWER EXTREMITIES: Calves are equal size bilaterally and non-tender. No edema. No discoloration. NEURO: Occasional repetitive statements but otherwise normal sensorium. No sensory or motor deficits noted. SKIN: No rash or jaundice noted. 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; [place]" S/P total hip arthroplasty S/P total knee arthroplasty Family History Father Coronary heart disease Social History Smoking Status: Never smoker Second Hand Exposure: No; Hx Alcohol Use: No Hx Substance Use: No Preferred Language: Bahamian Communication Ability: Effective Equipment Engineering Technician Required: No Beliefs That Will Affect Care: None marital status: Current Living Situation: Spouse current occupational status: retired Feels Safe at Home: Yes Assistive Devices: None Allergies Allergies Allergy/AdvReac Type Severity Reaction Status Date / Time bee venom protein (honey bee) Allergy Unknown swelling Verified 05/31/21 17:06 iodine Allergy Unknown DUE TO Verified 05/31/21 17:06 SHELLFISH ALLERGY-IODINATED DYE-UNKNOWN morphine Allergy Unknown stopped Verified 05/31/21 17:06 breathing Penicillins Allergy Unknown RASH Verified 05/31/21 17:06 shellfish derived Allergy Unknown ANAPHYLAXIS Verified 05/31/21 17:06 Home Meds Home Medications Medication Instructions Recorded Confirmed aspirin 81 mg tablet,delayed 81 mg PO QAM 07/21/19 05/31/21 release atorvastatin 80 mg tablet 80 mg PO HS 07/21/19 05/31/21 clopidogrel 75 mg tablet 75 mg PO QAM 07/21/19 05/31/21 isosorbide mononitrate 30 mg 30 mg PO QAM 07/21/19 05/31/21 tablet,extended release 24 hr metformin 500 mg tablet 500 mg PO QAM 07/21/19 05/31/21 metoprolol tartrate 25 mg tablet 12.5 mg PO BID 07/21/19 05/31/21 pantoprazole 40 mg tablet,delayed 40 mg PO QAM 07/21/19 05/31/21 release warfarin 5 mg tablet 2.5 mg PO 5XWK 07/21/19 05/31/21 warfarin 5 mg tablet 5 mg PO 2XWK 07/21/19 05/31/21 escitalopram oxalate 5 mg tablet 5 mg PO QAM 05/31/21 05/31/21 nitroglycerin 0.4 mg sublingual 0.4 mg SUBLINGUAL Q5M PRN 05/31/21 05/31/21 tablet Results & Data (ED) Vital Signs Vital Signs - 24 hr 05/31/21 12:59 05/31/21 14:13 05/31/21 14:14 Temperature 36.7 C Temperature Source Oral Pulse Rate 69 58 L Pulse Rate [Apical] 58 L Pulse Rate from SpO2 Sensor 58 L Pulse Rhythm Regular Pulse Strength Normal Respiratory Rate 24 18 Respiratory Effort / Characteristics Non-Labored Spontaneous Non-Labored Spontaneous Respiratory Depth Normal Normal Respiratory Pattern Regular Regular Blood Pressure 123/72 Blood Pressure [Right Arm] 145/80 H Blood Pressure Mean 89 Blood Pressure Mean [Right Arm] 101 Pulse Oximetry 100 97 99 Oxygen Delivery Method Room Air Room Air Room Air Sepsis Recent Fever Within 48 Hours No Sepsis New/Unexplained Change in Mental Status N/A Sepsis Action Taken by Nursing No Action Required 05/31/21 14:15 05/31/21 14:30 05/31/21 15:00 Temperature Temperature Source Pulse Rate 55 L 56 L 57 L Pulse Rate [Apical] Pulse Rate from SpO2 Sensor 56 L 58 L Pulse Rhythm Pulse Strength Respiratory Rate 20 21 20 Respiratory Effort / Characteristics Respiratory Depth Respiratory Pattern Blood Pressure 137/75 Blood Pressure [Right Arm] Blood Pressure Mean 95 Blood Pressure Mean [Right Arm] Pulse Oximetry 99 100 100 Oxygen Delivery Method Room Air Sepsis Recent Fever Within 48 Hours Sepsis New/Unexplained Change in Mental Status Sepsis Action Taken by Nursing 05/31/21 16:00 Temperature Temperature Source Pulse Rate Pulse Rate [Apical] 76 Pulse Rate from SpO2 Sensor Pulse Rhythm Pulse Strength Respiratory Rate 20 Respiratory Effort / Characteristics Respiratory Depth Respiratory Pattern Blood Pressure Blood Pressure [Right Arm] 151/85 H Blood Pressure Mean Blood Pressure Mean [Right Arm] 107 Pulse Oximetry 100 Oxygen Delivery Method Room Air Sepsis Recent Fever Within 48 Hours Sepsis New/Unexplained Change in Mental Status Sepsis Action Taken by Nursing Laboratory Data Result diagrams: 05/31/21 14:22 05/31/21 20:03 Lab Results 05/31/21 05/31/21 05/31/21 Range/Units 14:22 14:22 14:22 WBC 9.16 (4.8-10.8) K/uL RBC 4.38 L (4.7-6.1) M/uL Hgb 12.3 L (14.0-18.0) g/dL Hct 35.4 L (42-52) % MCV 80.8 (80-100) fL MCH 28.1 (25-34) pg MCHC 34.7 (32-36) g/dL RDW Std Deviation 43.0 (36.4-46.3) fL RDW Coeff of [place] 14.5 (11.5-14.5) % Plt Count 174 (130-400) K/uL MPV 9.4 (7.4-10.4) fL Immature Gran % (Auto) 0.2 % Neut % (Auto) 70.3 % Lymph % (Auto) 13.8 % [place] % (Auto) 14.6 % Eos % (Auto) 0.9 % Baso % (Auto) 0.2 % Neut # (Auto) 6.44 (1.4-6.5) K/uL Lymph # (Auto) 1.26 (1.2-3.4) K/uL [place] # (Auto) 1.34 H (0.11-0.59) K/uL Eos # (Auto) 0.08 (0-0.5) K/uL Baso # (Auto) 0.02 (0-0.2) K/uL Immature Gran # (Auto) 0.02 (0.00-0.02) K/uL PT 41.3 H (9.0-12.0) Seconds INR 4.6 H (0.9-1.1) Sodium 124 L (136-145) mmol/L Potassium 3.4 L (3.5-5.1) mmol/L Chloride 92 L (98-107) mmol/L Carbon Dioxide 20 L (21-32) mmol/L Anion Gap 12.0 H (3-11) BUN 13 (7-18) mg/dl Creatinine 0.97 (0.6-1.4) mg/dl Est Cr Clr Drug Dosing 70.5 ml/min Est GFR ( Amer) 82.7 ml/min Est GFR (Non-Af Amer) 71.4 ml/min BUN/Creatinine Ratio 13.2 (10-20) Glucose 111 H (70-99) mg/dl Osmolality (280-300) mOsm/kg Calcium 8.8 (8.5-10.1) mg/dl Magnesium 1.5 L (1.8-2.4) mg/dl Total Bilirubin 1.0 (0.2-1) mg/dl AST 30 (15-37) U/L ALT 28 (12-78) U/L Alkaline Phosphatase 86 (45-117) U/L Troponin I < 0.015 (0-0.045) ng/ml Total Protein 7.4 (6.4-8.2) gm/dl Albumin 3.6 (3.4-5.0) gm/dl Globulin 3.8 (2.5-4.0) gm/dl Albumin/Globulin Ratio 0.9 (0.9-2) TSH 6.090 H (0.300-4.500) uIu/ml Free T4 0.89 (0.8-1.6) ng/dl Urine Color Urine Appearance (Clear) Urine pH (4.5-7.5) Ur Specific [place] (1.000-1.030) Urine Protein (Negative) Urine Glucose (UA) (Negative) Urine Ketones (Negative) Urine Blood (Negative) Urine Nitrite (Negative) Urine Bilirubin (Negative) Urine Urobilinogen (Negative) Ur Leukocyte Esterase (Negative) Influ A Molecular Assay (Negative) Influ B Molecular Assay (Negative) SARS-CoV-2, RNA, NAAT (NEGATIVE) 05/31/21 05/31/21 05/31/21 Range/Units 14:22 14:54 14:54 WBC (4.8-10.8) K/uL RBC (4.7-6.1) M/uL Hgb (14.0-18.0) g/dL Hct (42-52) % MCV (80-100) fL MCH (25-34) pg MCHC (32-36) g/dL RDW Std Deviation (36.4-46.3) fL RDW Coeff of [place] (11.5-14.5) % Plt Count (130-400) K/uL MPV (7.4-10.4) fL Immature Gran % (Auto) % Neut % (Auto) % Lymph % (Auto) % [place] % (Auto) % Eos % (Auto) % Baso % (Auto) % Neut # (Auto) (1.4-6.5) K/uL Lymph # (Auto) (1.2-3.4) K/uL [place] # (Auto) (0.11-0.59) K/uL Eos # (Auto) (0-0.5) K/uL Baso # (Auto) (0-0.2) K/uL Immature Gran # (Auto) (0.00-0.02) K/uL PT (9.0-12.0) Seconds INR (0.9-1.1) Sodium (136-145) mmol/L Potassium (3.5-5.1) mmol/L Chloride (98-107) mmol/L Carbon Dioxide (21-32) mmol/L Anion Gap (3-11) BUN (7-18) mg/dl Creatinine (0.6-1.4) mg/dl Est Cr Clr Drug Dosing ml/min Est GFR ( Amer) ml/min Est GFR (Non-Af Amer) ml/min BUN/Creatinine Ratio (10-20) Glucose (70-99) mg/dl Osmolality 263 L (280-300) mOsm/kg Calcium (8.5-10.1) mg/dl Magnesium (1.8-2.4) mg/dl Total Bilirubin (0.2-1) mg/dl AST (15-37) U/L ALT (12-78) U/L Alkaline Phosphatase (45-117) U/L Troponin I (0-0.045) ng/ml Total Protein (6.4-8.2) gm/dl Albumin (3.4-5.0) gm/dl Globulin (2.5-4.0) gm/dl Albumin/Globulin Ratio (0.9-2) TSH (0.300-4.500) uIu/ml Free T4 (0.8-1.6) ng/dl Urine Color Urine Appearance (Clear) Urine pH (4.5-7.5) Ur Specific [place] (1.000-1.030) Urine Protein (Negative) Urine Glucose (UA) (Negative) Urine Ketones (Negative) Urine Blood (Negative) Urine Nitrite (Negative) Urine Bilirubin (Negative) Urine Urobilinogen (Negative) Ur Leukocyte Esterase (Negative) Influ A Molecular Assay Negative (Negative) Influ B Molecular Assay Negative (Negative) SARS-CoV-2, RNA, NAAT NEGATIVE (NEGATIVE) 05/31/21 Range/Units 16:00 WBC (4.8-10.8) K/uL RBC (4.7-6.1) M/uL Hgb (14.0-18.0) g/dL Hct (42-52) % MCV (80-100) fL MCH (25-34) pg MCHC (32-36) g/dL RDW Std Deviation (36.4-46.3) fL RDW Coeff of [place] (11.5-14.5) % Plt Count (130-400) K/uL MPV (7.4-10.4) fL Immature Gran % (Auto) % Neut % (Auto) % Lymph % (Auto) % [place] % (Auto) % Eos % (Auto) % Baso % (Auto) % Neut # (Auto) (1.4-6.5) K/uL Lymph # (Auto) (1.2-3.4) K/uL [place] # (Auto) (0.11-0.59) K/uL Eos # (Auto) (0-0.5) K/uL Baso # (Auto) (0-0.2) K/uL Immature Gran # (Auto) (0.00-0.02) K/uL PT (9.0-12.0) Seconds INR (0.9-1.1) Sodium (136-145) mmol/L Potassium (3.5-5.1) mmol/L Chloride (98-107) mmol/L Carbon Dioxide (21-32) mmol/L Anion Gap (3-11) BUN (7-18) mg/dl Creatinine (0.6-1.4) mg/dl Est Cr Clr Drug Dosing ml/min Est GFR ( Amer) ml/min Est GFR (Non-Af Amer) ml/min BUN/Creatinine Ratio (10-20) Glucose (70-99) mg/dl Osmolality (280-300) mOsm/kg Calcium (8.5-10.1) mg/dl Magnesium (1.8-2.4) mg/dl Total Bilirubin (0.2-1) mg/dl AST (15-37) U/L ALT (12-78) U/L Alkaline Phosphatase (45-117) U/L Troponin I (0-0.045) ng/ml Total Protein (6.4-8.2) gm/dl Albumin (3.4-5.0) gm/dl Globulin (2.5-4.0) gm/dl Albumin/Globulin Ratio (0.9-2) TSH (0.300-4.500) uIu/ml Free T4 (0.8-1.6) ng/dl Urine Color Yellow Urine Appearance Clear (Clear) Urine pH 8.5 H (4.5-7.5) Ur Specific [place] 1.012 (1.000-1.030) Urine Protein Negative (Negative) Urine Glucose (UA) Negative (Negative) Urine Ketones Negative (Negative) Urine Blood Negative (Negative) Urine Nitrite Negative (Negative) Urine Bilirubin Negative (Negative) Urine Urobilinogen Negative (Negative) Ur Leukocyte Esterase Negative (Negative) Influ A Molecular Assay (Negative) Influ B Molecular Assay (Negative) SARS-CoV-2, RNA, NAAT (NEGATIVE) Administered Medications Discontinued Medications Sodium Chloride (Nss 1000ml) 500 mls @ 999 mls/hr IV .Q31M ONE Stop: 05/31/21 15:20 Last Infusion: 05/31/21 15:00 Dose: 0 mls/hr Documented by: [id number] Admin: 05/31/21 14:59 Dose: 999 mls/hr Documented by: [id number] Sodium Chloride (Nss 1000ml) 1,000 mls @ 125 mls/hr IV .Q8H STA Stop: 05/31/21 22:49 Last Infusion: 05/31/21 20:16 Dose: 0 mls/hr Documented by: [id number] Admin: 05/31/21 14:59 Dose: 125 mls/hr Documented by: [id number] Magnesium Sulfate/Dextrose (Magnesium Sulfate / D5w) 1 gm in 100 mls @ 100 mls/hr IV NOW STA Stop: 05/31/21 16:16 Last Infusion: 05/31/21 17:22 Dose: 0 mls/hr Documented by: [id number] Admin: 05/31/21 15:53 Dose: 100 mls/hr Documented by: [id number] Potassium Chloride (K Santana / Wtr) 10 meq in 100 mls @ 100 mls/hr IV ONE ONE Stop: 05/31/21 16:16 Last Infusion: 05/31/21 17:22 Dose: 0 mls/hr Documented by: [id number] Admin: 05/31/21 15:53 Dose: 100 mls/hr Documented by: [id number] Ondansetron HCl (Ondansetron Inj 2 Mg/Ml 2 Ml Vial) 4 mg IV NOW STA Stop: 05/31/21 14:51 Last Admin: 05/31/21 14:58 Dose: 4 mg Documented by: [id number] Potassium Chloride (Potassium Chloride Crtab 20 Meq Tabcr) 20 meq PO NOW STA Stop: 05/31/21 18:26 Last Admin: 05/31/21 18:55 Dose: 20 meq Documented by: [id number] Imaging Data Radiologist's Impression: Chest X-Ray 05/31/21 14:10 XR chest 1V portable HISTORY: 86 years-old Male weakness acute weakness COMPARISON: Chest radiograph 04/20/2021 TECHNIQUE: Portable AP view of the chest FINDINGS: Cardiac silhouette is mildly enlarged, unchanged. Prior median sternotomy with suggested CABG. There is no pneumothorax, pleural effusion, airspace consolidation or overt pulmonary edema. Mild chronic interstitial coarsening of the lung bases. Degenerative changes of the spine and shoulders. IMPRESSION: No acute process. ACT 112: Negative or not required by law. The above report was generated using voice recognition software. It may contain grammatical, syntax or spelling errors. Electronically signed by: Viet Whittaker M.D. 05/31/2021 3:[address] 05/31/21 14:48 CT head/brain wo con CLINICAL HISTORY: 86 years-old Male with confusion. Acutely altered mental s tatus TECHNIQUE: Multiple axial CT images of the head were obtained without contrast. A dose lowering technique was utilized adhering to the principles of ALARA. CT DOSE: 884.08 mGy.cm COMPARISON: Head CT 10/04/2017. FINDINGS: No acute intracranial hemorrhage, midline shift, intracranial mass, hydrocephalus, territorial ischemia or abnormal extra-axial collection. Age- related involutional changes. 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 Cerebral vascular calcifications. The calvarium is intact. The paranasal sinuses, mastoid air cells, and middle ear cavities are clear. IMPRESSION: No acute intracranial abnormality. ACT 112: Negative or not required by law. The above report was generated using voice recognition software. It may contain grammatical, syntax or spelling errors. Electronically signed by: Viet Whittaker M.D. 05/31/2021 4:44 PM Discharge Plan Visit Data Chief Complaint: Dizziness Stated Complaint: DIZZY LIGHTHEADED ED Provider: Cecil Duron Discharge Problem: COVID-19, Acute confusion, Nausea, Diarrhea, Acute electrocardiogram changes, Hypomagnesemia, Acute hyponatremia, Hypokalemia
[2021-05-31 15:23] LABS: Albumin Globulin Ratio 0.9 (0.9-2); Alkaline Phosphatase 86 U/L (45-117); Globulin 3.8 gm/dl (2.5-4.0); Total Protein 7.4 gm/dl (6.4-8.2); Troponin I < 0.015 ng/ml (0-0.045)
[2021-05-31 15:29] LABS: Influenza A virus by PCR Negative (Negative); Influenza B virus by PCR Negative (Negative)
[2021-05-31 15:35] LABS: T4 Free Thyroxine 0.89 ng/dl (0.8-1.6)
[2021-05-31 16:07] LABS: Appearance Urine Clear (Clear); Bilirubin Urine Negative (Negative); Blood Urine Negative (Negative); Color Urine Yellow; Glucose Urine UA Negative (Negative); Ketones Urine Negative (Negative); Leukocyte Esterase Urine Negative (Negative); Nitrite Urine Negative (Negative); Protein Urine Negative (Negative); Specific Gravity Urine 1.012 (1.000-1.030); Urobilinogen Urine Negative (Negative); pH Urine 8.5 (4.5-7.5)
--- NOTE | 2021-05-31 16:45 | CT Scan Report ---
CT head/brain wo con CLINICAL HISTORY: 86 years-old Male with confusion. Acutely altered mental status TECHNIQUE: Multiple axial CT images of the head were obtained without contrast. A dose lowering tech nique was utilized adhering to the principles of ALARA. CT DOSE: 884.08 mGy.cm COMPARISON: Head CT 10/04/2017. FINDINGS: No acute intracranial hemorrhage, midline shift, intracranial mass, hydrocephalus, territorial ischem ia or abnormal extra-axial collection. Age-related involutional changes. White matter hypodensities s uggest chronic microvascular ischemic disease. Cerebral vascular calcifications. The calvarium is intact. The paranasal sinuses, mastoid air cells, and middle ear cavities are clear . IMPRESSION: No acute intracranial abnormality. ACT 112: Negative or not required by law. The above report was generated using voice recognition software. It may contain grammatical, syntax o r spelling errors. Electronically signed by: Viet Whittaker M.D. 05/31/2021 4:44 PM
[2021-05-31] MEDS ORDERED: POTASSIUM CHLORIDE CRTAB 20 MEQ TABCR PO STA (18:25)
[2021-05-31 18:49] LABS: INR 4.6 (0.9-1.1); Prothrombin Time 41.3 Seconds (9.0-12.0)
--- NOTE | 2021-05-31 20:01 | History and Physical Report ---
DATE OF ADMISSION: 05/31/2021. CHIEF COMPLAINT: Nausea, diarrhea and confusion. HISTORY OF PRESENT ILLNESS: This is an 86-year-old male with past medical history significant for type 2 diabetes, diabetic retinopathy, SIADH, hyperlipidemia, hypothyroidism, atrial fibrillation on Coumadin; CAD status post CABG, GERD, BPH, arthritis, dermatitis, depression, status post lumbar spinal fusion surgery, who lives at home with his , presents with some confusion, nausea, not feeling well. Since today, patient had a couple episodes of diarrhea. No blood in the stools. Has nausea. Appetite is down and feeling chills, questionable shortness of breath, no fevers. As he was not feeling well, he was brought in by his and found to have sodium of 124, potassium of 3.4, magnesium of 1.5, INR 4.6. Urinalysis negative. Influenza A and B negative. Rapid COVID test is negative. The patient has been vaccinated with Aledia COVID vaccine, last dose was on 10/09/2020. Subsequent booster on 06/11/2021. Patient currently is somewhat restless, wants to go home, but okay to stay. Earlier he had a headache, but right now there is no headache. Vision is okay. No earache, no runny nose, no sore throat, no cough, no chest pain, no abdominal pain. Normal bladder movements. He says he urinates a lot. He ambulates without any support. says he has lost about 6-7 pounds since last December, but totally lost about 20 pounds in several months and his family doctor is following that. His sodium is usually in the 130s.As per the Nephrology he seems to drink a lot of water and agrees with it. Patient says he has some dry mouth. ALLERGIES: BEE VENOM, IODINE, MORPHINE, PENICILLIN, SHELLFISH DERIVED. PAST MEDICAL HISTORY: As mentioned above. PAST SURGICAL HISTORY: Left knee arthroplasty, balloon angioplasty, right CABG, carpal tunnel surgery, colonoscopy, EGDs, spinal fusion surgery, status post cardiac stents, right hip replacement. MEDICATIONS: The patient on aspirin 81 mg p.o. daily, atorvastatin 80 mg p.o. daily, Plavix 75 mg p.o. a.m., Lexapro 5 mg p.o. a.m., Imdur 30 mg p.o. a.m., metformin 500 mg p.o. a.m., metoprolol tartrate 12.5 mg p.o. b.i.d., nitroglycerin 0.4 mg sublingual p.r.n., Protonix 40 mg p.o. daily, Coumadin 5 mg 2 times a week and Coumadin 2.5 mg p.o. 5 times a week. FAMILY HISTORY: Significant for father had PR; mother had Pick's disease, brother has Parkinson's. SOCIAL HISTORY: , lives with his . No smoking, no alcohol, no drug use. REVIEW OF SYSTEMS: As per HPI. Rest of review of systems is negative. PHYSICAL EXAMINATION: GENERAL: The patient is of moderate build, not in acute distress. VITAL SIGNS: Temperature 36.7, pulse 76, respiratory rate 20, blood pressure 151/85, oxygen 100% on room air. HEENT: Pupils equal, round and reactive to light. Oral mucosa moist. NECK: No neck masses seen. No JVD seen. CARDIOVASCULAR: S1 and S2 heard. Regular rate and rhythm. No murmur, no gallop. RESPIRATORY: Normal AP diameter. No accessory muscle use. No wheezing, no crackles. ABDOMEN: Soft, bowel sounds present, nontender, no distention. CENTRAL NERVOUS SYSTEM: Cranial nerves II-XII grossly intact, nonfocal. EXTREMITIES: Trace edema, no erythema seen. LABORATORY DATA: WBC is 9.1, hemoglobin 12.3, hematocrit 35.4, platelets 174. PT 41.3, INR 4.6. Sodium 124, potassium 3.4, chloride 92, bicarbonate 20, BUN 13, creatinine 0.9, serum glucose 111. Serum osmolality 263, calcium 8.8, magnesium 1.5, total bilirubin 1, AST 30, ALT 28, alkaline phosphatase 86. Troponin I less than 0.015. TSH 6.09, free T4 of 0.8. Urinalysis negative. SARS-CoV-2 RNA NAAT negative. Influenza A and B negative. IMAGING DATA: CT of the head, no acute findings. Chest x-ray, no acute findings. EKG: Sinus bradycardia with first-degree AV block at a rate of 56, QTc of 492, questionable T-wave inversion in lateral leads. ASSESSMENT AND PLAN: This is an 86-year-old male who presents with not feeling well, nausea, diarrhea and hyponatremia. 1. Hyponatremia. The patient has history of SIADH, usually sodium runs around 130s,currently sodium 124. He had a couple episodes of diarrhea today, feeling nauseous. The patient had some fluids in the ER. We will restrict fluids to 1.5 liters a day. Closely follow the BMPs, not to aggressively correct the sodium and consult Nephrology in the a.m. Follow urine osmolality and urine sodium. Monitor in the tele floor. 2. Diarrhea. We will monitor his fluids in the ER. We will monitor volume status. 3. COVID positive. Altered mental status, possibly from hyponatremia and COVID. We will monitor. Repeat COVID PCTR test came back positive. Isolation precautions. Currently Oxygenation is fine.CXR ok. Close monitor. 4. Coronary artery disease, status post CABG, status post stents. Continue home medication of aspirin, plavix, statin, Imdur, beta janey. We will follow the repeat EKG. Follow repeat troponins in a.m., if any concerns we will get an echo. 5. History of diabetes, hold metformin. Placed on insulin sliding scale. 6. History of atrial fibrillation, rate controlled with metoprolol, on Coumadin. INR supratherapeutic at 4.6, we will hold the Coumadin. Follow the PT/INR. 7. History of hypertension. Continue metoprolol and Imdur. We will monitor the blood pressure. 8. History of gastroesophageal reflux disease. Continue Protonix. 9. History of depression. Continue Lexapro. 10. History of hyperlipidemia, on statin. 11. Deep venous thrombosis prophylaxis. INR is supratherapeutic.Restart coumadin when INR in therapeutic range. DISPOSITION: Closely monitor in the tele floor. PT/OT prior to discharge. Social service to help with discharge planning. Level 1 full code. Job ID: [id number] [facility]
[2021-05-31 20:37] LABS: BUN Creatinine Ratio 11.3 (10-20); Creatinine Clr Calc Pharmacy 67.7 ml/min; Est GFR (African American) 78.8 ml/min; Potassium 4.4 mmol/L (3.5-5.1)
[2021-05-31] MEDS ORDERED: hydrALAZINE HCL 20 MG/ML VIAL IV PRN (22:44)
[2021-05-31] MEDS ORDERED: ONDANSETRON INJ 2 MG/ML 2 ML VIAL IV PRN (22:44)
[2021-05-31] MEDS ORDERED: WARFARIN SOD 2.5 MG TAB PO SCH (22:44)
[2021-05-31] MEDS ORDERED: NITROGLYCERIN SL 0.4 MG/TAB TAB SL PRN (22:44)
[2021-05-31] MEDS ORDERED: WARFARIN SOD 5 MG TAB PO SCH (22:44)
[2021-05-31] MEDS ORDERED: MAGNESIUM SULFATE / D5W 1 GM/100 ML BAG IV ONE (23:00)
[2021-05-31] MEDS: ATORVASTATIN 40 MG TAB PO SCH (23:51)
[2021-05-31] MEDS: METOPROLOL TARTRATE 25 MG TAB PO SCH (23:57)
[2021-06-01 00:22] LABS: BUN Creatinine Ratio 10.4 (10-20); Calcium 9.2 mg/dl (8.5-10.1); Creatinine Clr Calc Pharmacy 65.8 ml/min; Est GFR (African American) 76.1 ml/min; Est GFR (Non-African American) 65.6 ml/min; Potassium 3.4 mmol/L (3.5-5.1)
[2021-06-01] MEDS: ACETAMINOPHEN 325 MG TAB PO PRN ×3 (03:56→20:27)
[2021-06-01 06:08] LABS: Basophils # (auto) 0.01 K/uL (0-0.2); Basophils % (auto) 0.2 %; Eosinophils # (auto) 0.15 K/uL (0-0.5); Eosinophils % (auto) 2.3 %; Hematocrit (blood only) 35.5 % (42-52); Hemoglobin 12.6 g/dL (14.0-18.0); Immature Granulocytes # (auto) 0.01 K/uL (0.00-0.02); Immature Granulocytes % (auto) 0.2 %; Lymphocytes # (auto) 1.21 K/uL (1.2-3.4); Lymphocytes % (auto) 18.4 %; Mean Corpuscular Hemoglobin 28.6 pg (25-34); Mean Corpuscular Hgb Conc 35.5 g/dL (32-36); Mean Corpuscular Volume 80.7 fL (80-100); Mean Platelet Volume 8.8 fL (7.4-10.4); Monocytes # (auto) 0.99 K/uL (0.11-0.59); Neutrophils # (auto) 4.22 K/uL (1.4-6.5); Neutrophils % (auto) 63.9 %; Platelet Count 165 K/uL (130-400); RDW Coefficient of Variation 14.9 % (11.5-14.5); RDW Standard Deviation 43.7 fL (36.4-46.3); White Blood Count 6.59 K/uL (4.8-10.8)
[2021-06-01 06:13] LABS: INR 3.1 (0.9-1.1); Prothrombin Time 28.7 Seconds (9.0-12.0)
[2021-06-01 06:40] LABS: BUN Creatinine Ratio 13.3 (10-20); Calcium 8.5 mg/dl (8.5-10.1); Creatinine Clr Calc Pharmacy 73.1 ml/min; Est GFR (African American) 92.7 ml/min; Magnesium 2.1 mg/dl (1.8-2.4); Potassium 3.5 mmol/L (3.5-5.1)
[2021-06-01] MEDS ORDERED: POTASSIUM CHLORIDE 40 MEQ in SODIUM CHLORIDE 0.9% 1000ML 1,000 ML IV ONE (07:15)
[2021-06-01] MEDS: INSULIN ASPART 100 UNITS/ML 3 ML PEN SC SCH ×5 (08:10→20:28)
[2021-06-01] MEDS: ESCITALOPRAM OXALATE 10 MG TAB PO SCH (08:12)
[2021-06-01] MEDS: METOPROLOL TARTRATE 25 MG TAB PO SCH ×2 (08:12→20:27)
[2021-06-01] MEDS: ASPIRIN 81 MG ECTAB PO SCH (08:12)
[2021-06-01] MEDS: PANTOprazole 40 MG TAB PO SCH (08:12)
[2021-06-01] MEDS: CLOPIDOGREL BISULFATE 75 MG TAB PO SCH (08:12)
[2021-06-01] MEDS: ISOSORBIDE MONO EXTENDED REL 30 MG TABCR PO SCH (08:12)
[2021-06-01 08:13] LABS: Estimated Average Glucose 134 mg/dl; Hemoglobin A1C 6.3 % (4.5-5.6)
[2021-06-01 13:04] LABS: BUN Creatinine Ratio 14.6 (10-20); Calcium 8.4 mg/dl (8.5-10.1); Creatinine Clr Calc Pharmacy 72.3 ml/min; Est GFR (African American) 92.3 ml/min; Est GFR (Non-African American) 79.6 ml/min; Potassium 3.9 mmol/L (3.5-5.1)
--- NOTE | 2021-06-01 14:43 | Nephrology Consultation ---
Date of Consultation June 01, 2021 Assessment & Plan (1) Chronic hyponatremia: pt historically has SIADH and intolerant of fluid limits. He appears to be responding more like a hypovolemic hyponatremia here though. He does seem a bit anxious, a bit confused (though oriented x 3 and knows who president is), though I do not know his baseline MS. -ensure follow up/adjustment of thyroid medication -continue NS w/ 40 mEq/L K to 100 mL hourly IF repeat BMP is w/ K and sNa same or better than noon values, ok from renal standpoint to d/c home, though would not be inappropriate to observe overnight either: -adjust thyroid as above -recheck bmp, serum and urine osms, rd urine sodium on 06/08 > pls have d/c financial planner forward to renal nurse pool for Dr Winter -d/c on SIXTY oz fluid limit AND may have up to 16 oz V8 juice daily FOR NOW/may be subject to change -f/u w/ Dr Winter in 1-2 wks Care coordinated w/ Dr Hicks. History of Present Illness Reason for Consultation: hyponatremia Requesting Physician: Dr Hicks Attending Physician: Opal Hicks MD History of Present Illness 86 y/o M whom I'm asked to evaluate regarding hyponatremia was admitted last evening for sNa 124 and covid + after presenting w/ confusion and malaise. PMH includes DM, CAD s/p CABG, SIADH, hypothyroid, a fib on AC, HL, depression, remote lumbar spine surgery. he was seen in ER last month w/ atypical chest pain; noted at that time to have mildly elevated TSH He had 1.5L NS in ER; also needed several doses of K and mag supplementation. He is currently receiving NS @40 ml/hr with 40 mEq/L K. He follows w/ Dr Winter in CKD clinic for chronic hyponatremia from SIADH and has historically refused to follow relatively mild fluid limits (such as 60 oz daily), leaving his sodium as OP in general at about 127-131 over the past year. Denies EtOH or nsaid use; denies falls or balance problems > though does tell me that a few weeks back he had sudden onset generalized weakness and did not fall but did "have to lay down on the ground." He had a DECKER earlier but denies it currently. Hoping he can walk around the covid jacinto. He is very anxious for d/c home today. Denies cough; denies sob, edema, n/v/d/abd pain, new or worrisome voiding concerns. endorses pain in joints of his hands and feet 3-4, non radiating, not related to exertion w/ minimal relief by Tylenol. Allergies Allergy/AdvReac Type Severity Reaction Status Date / Time bee venom protein (honey bee) Allergy Unknown swelling Verified 05/31/21 17:06 iodine Allergy Unknown DUE TO Verified 05/31/21 17:06 SHELLFISH ALLERGY-IODINATED DYE-UNKNOWN morphine Allergy Unknown stopped Verified 05/31/21 17:06 breathing Penicillins Allergy Unknown RASH Verified 05/31/21 17:06 shellfish derived Allergy Unknown ANAPHYLAXIS Verified 05/31/21 17:06 Home Medications Medication Instructions Recorded Confirmed Type aspirin 81 mg tablet,delayed 81 mg PO QAM 07/21/19 05/31/21 History release atorvastatin 80 mg tablet 80 mg PO HS 07/21/19 05/31/21 History clopidogrel 75 mg tablet 75 mg PO QAM 07/21/19 05/31/21 History isosorbide mononitrate 30 mg 30 mg PO QAM 07/21/19 05/31/21 History tablet,extended release 24 hr metformin 500 mg tablet 500 mg PO QAM 07/21/19 05/31/21 History metoprolol tartrate 25 mg tablet 12.5 mg PO BID 07/21/19 05/31/21 History pantoprazole 40 mg tablet,delayed 40 mg PO QAM 07/21/19 05/31/21 History release warfarin 5 mg tablet 2.5 mg PO 5XWK 07/21/19 05/31/21 History warfarin 5 mg tablet 5 mg PO 2XWK 07/21/19 05/31/21 History escitalopram oxalate 5 mg tablet 5 mg PO QAM 05/31/21 05/31/21 History nitroglycerin 0.4 mg sublingual 0.4 mg SUBLINGUAL Q5M PRN 05/31/21 05/31/21 History tablet Patient History Medical History (Updated 06/01/21 @ 15:24 by Tess Badillo MD, PhD) Chronic hyponatremia Coronary artery disease Diabetes mellitus type 2 with complications Dyslipidemia Hypertension Lumbar stenosis Paroxysmal atrial fibrillation Surgical History History of carpal tunnel surgery "bilateral" 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; [facility]" S/P total hip arthroplasty S/P total knee arthroplasty Family History Father Coronary heart disease Social History Smoking Status: Never smoker Second Hand Exposure: No; Hx Alcohol Use: No Hx Substance Use: No Preferred Language: [place] Communication Ability: Effective Safe Deposit Attendant Required: No Beliefs That Will Affect Care: None marital status: Current Living Situation: Spouse current occupational status: retired Other Information That Helps Us Care for You: No Feels Safe at Home: Yes Safety Concerns: Feels Safe At This Time Assistive Devices: None Review of Systems Review of Systems: All systems reviewed & are unremarkable except as noted in HPI & below Physical Exam Constitutional: well developed, well nourished and cooperative; no acute distress Eyes: EOM intact bilaterally ENMT: Ears: no external ear abnormality Nose: no external nose abnormality Mouth: + dry oral mucous membranes Neck: no nuchal rigidity Respiratory: normal respiratory effort Auscultation: + diminished lung sounds Cardiovascular: RRR, no murmur, no edema Gastrointestinal (Abdomen): Inspection/Auscultation: normal bowel sounds Percussion/Palpation: abdomen soft; abdomen nontender Musculoskeletal: Extremities: strength 5/5 throughout Skin: no rashes, warm and dry Neurologic: littlejohn, fluent speech, no tremor Psychiatric: Orientation: alert and oriented x 3 Speech: normal rate/rhythm/volume of speech he is anxious and somewhat pressured about immediate discharge Results & Data ([facility]) Vital Signs (Past 12 Hours) Vital Signs Temp Pulse Resp BP Pulse Ox 06/01/21 11:53 36.8 C 50 L 19 123/68 99 06/01/21 07:21 36.6 C 65 17 156/83 H 98 06/01/21 03:51 36.5 C 62 18 161/82 H 100 06/01/21 02:45 157/84 H Laboratory Results 06/01/21 05:47 06/01/21 12:08 urine osms, rd Na; serum osms reviewed Diagnostic Findings head ct and cxr w/o acute process
--- NOTE | 2021-06-01 15:53 | Hospitalist Progress Note ---
Date of Service June 01, 2021 Assessment & Plan (1) Chronic hyponatremia: Plan: Acute on chronic hyponatremia History of SIADH with chronic hyponatremia Has had dizziness with ambulation and acute confusion which is resolved Appreciate nephrology input and recommendation We will get PT and OT evaluation Repeat BMP tomorrow and if the sodium has been improving we will discharge home tomorrow (2) SIADH (syndrome of inappropriate ADH production): Plan: The cause of chronic hyponatremia We will advised fluid reduction as recommended by the unloading checker (3) Diarrhea: Plan: Diarrhea seems to be improved Might be the cause for acute hyponatremia (4) COVID-19: Plan: He is being vaccinated with ECO vaccine Noted to have COVID-19 positive-remains asymptomatic (5) S/P CABG x 3: Plan: No cardiac symptoms (6) Diabetes mellitus type 2 with complications: Plan: Continue with SSI (7) Hypertension: Plan: Blood pressure is controlled (8) Paroxysmal atrial fibrillation: Plan: Regular heart rate Has been on Coumadin INR is therapeutic Admission and Anticipated Discharge Date Admission Date: May 31, 2021 Subjective 06/01/2021 The patient was seen and examined in telemetry unit and in the Covid room He remains weak and lethargic and dizzy when moving around His sodium remains low but he wants to go home Has been Covid positive but remains totally asymptomatic Review of Systems Review of Systems: All systems reviewed and are unremarkable except as noted below Respiratory: No respiratory symptoms Neurologic: Dizziness when ambulance Physical Exam Physical Exam: Lying in bed comfortably Constitutional: well developed, well nourished and + obese; not ill appearing Eyes: PERRL, conjunctivae normal, anicteric sclerae ENMT: external ear and nose normal, oropharynx normal Neck: trachea midline, no thyromegaly Respiratory: no respiratory distress and no cough Auscultation: lungs clear to auscultation bilaterally and + diminished lung sounds; no crackles and no wheezes Cardiovascular: Rate/Rhythm: regular rate and regular rhythm; not tachycardic Heart Sounds: normal S1 and normal S2; no murmur Extremities: no edema Gastrointestinal (Abdomen): Inspection/Auscultation: normal bowel sounds; abdomen not distended Percussion/Palpation: abdomen soft; abdomen nontender Musculoskeletal: No acute arthritis in any joint Neurologic: Alert, awake and oriented x3. No focal sensory or no motor deficit appreciated Results & Data Results & Data ([facility]) Vital Signs (Past 12 Hours) Vital Signs Temp Pulse Resp BP Pulse Ox 06/01/21 15:28 36.8 C 53 L 18 120/67 98 06/01/21 11:53 36.8 C 50 L 19 123/68 99 06/01/21 07:21 36.6 C 65 17 156/83 H 98 06/01/21 03:51 36.5 C 62 18 161/82 H 100 Laboratory Results Short CBC 06/01/21 Range/Units 05:47 WBC 6.59 (4.8-10.8) K/uL Hgb 12.6 L (14.0-18.0) g/dL Hct 35.5 L (42-52) % Plt Count 165 (130-400) K/uL BMP 05/31/21 05/31/21 06/01/21 20:03 23:50 05:47 Sodium 127 L 125 L 125 L Potassium 4.4 D 3.4 L D 3.5 Chloride 96 L 95 L 97 L Carbon Dioxide 22 25 20 L BUN 11 11 11 Creatinine 1.01 1.04 0.85 Glucose 116 H 100 H 114 H Calcium 9.0 9.2 8.5 06/01/21 06/01/21 12:08 12:08 Sodium 127 L 127 L Potassium 3.9 Chloride 97 L Carbon Dioxide 22 BUN 13 Creatinine 0.86 Glucose 114 H Calcium 8.4 L Urine 05/31/21 Range/Units 16:00 Urine Color Yellow Urine Appearance Clear (Clear) Urine pH 8.5 H (4.5-7.5) Ur Specific Accord 1.012 (1.000-1.030) Urine Protein Negative (Negative) Urine Glucose (UA) Negative (Negative) Medications Administered Current Inpatient Medications Acetaminophen (Acetaminophen 325 Mg Tab) 650 mg PO Q4H PRN PRN Reason: Pain or Fever Stop: 06/30/21 22:43 Last Admin: 06/01/21 10:28 Dose: 650 mg Documented by: Aspirin (Aspirin 81 Mg Ectab) 81 mg PO [facility] Stop: 07/01/21 08:59 Last Admin: 06/01/21 08:12 Dose: 81 mg Documented by: Atorvastatin Calcium (Atorvastatin 40 Mg Tab) 80 mg PO [facility] Stop: 06/30/21 22:43 Last Admin: 05/31/21 23:51 Dose: 80 mg Documented by: Clopidogrel Bisulfate (Clopidogrel Bisulfate 75 Mg Tab) 75 mg PO [facility] Stop: 07/01/21 08:59 Last Admin: 06/01/21 08:12 Dose: 75 mg Documented by: Escitalopram Oxalate (Escitalopram Oxalate 10 Mg Tab) [facility] Stop: 07/01/21 08:59 Last Admin: 06/01/21 08:12 Dose: 5 mg Documented by: Hydralazine HCl (Hydralazine Hcl 20 Mg/Ml Vial) 5 mg IV Q6H PRN PRN Reason: Hypertension Stop: 06/30/21 22:43 Potassium Chloride 40 meq/ (Sodium Chloride) 1,020 mls @ 50 mls/hr IV .[id number] ONE Stop: 06/02/21 03:38 Last Admin: 06/01/21 08:11 Dose: 50 mls/hr Documented by: Insulin Aspart (Insulin Aspart 100 Units/Ml 3 Ml Pen) 0 units SC [facility] Stop: 06/30/21 22:43 Last Admin: 06/01/21 14:27 Dose: Not Given Documented by: Isosorbide Mononitrate (Isosorbide [place] Extended Rel 30 Mg Tabcr) 30 mg PO [facility] Stop: 07/01/21 08:59 Last Admin: 06/01/21 08:12 Dose: 30 mg Documented by: Metoprolol Tartrate (Metoprolol Tartrate 25 Mg Tab) 12.5 mg PO BID [facility] Stop: 06/30/21 22:43 Last Admin: 06/01/21 08:12 Dose: 12.5 mg Documented by: Nitroglycerin (Nitroglycerin Sl 0.4 Mg/Tab Tab) 0.4 mg SL UD PRN PRN Reason: Chest Pain Stop: 06/30/21 22:43 Ondansetron HCl (Ondansetron Inj 2 Mg/Ml 2 Ml Vial) 4 mg IV Q6H PRN PRN Reason: Nausea Stop: 06/30/21 22:43 Pantoprazole Sodium (Pantoprazole 40 Mg Tab) 40 mg PO [facility] Stop: 07/01/21 08:59 Last Admin: 06/01/21 08:12 Dose: 40 mg Documented by: Warfarin Sodium (Warfarin Sod 5 Mg Tab) 5 mg PO MoFr@2000 [facility] Stop: 07/01/21 19:59 Warfarin Sodium (Warfarin Sod 2.5 Mg Tab) 2.5 mg PO Radha@1999 [facility] Stop: 07/02/21 19:59 (1) Hypertension Hypertension type: essential hypertension Qualified Code(s): I10 - Essential (primary) hypertension
[2021-06-01 16:16] LABS: Calcium 8.6 mg/dl (8.5-10.1); Creatinine Clr Calc Pharmacy 59.8 ml/min; Est GFR (African American) 76.1 ml/min; Est GFR (Non-African American) 65.6 ml/min; Potassium 4.3 mmol/L (3.5-5.1)
[2021-06-01] MEDS ORDERED: WARFARIN SOD 5 MG TAB PO SCH (20:00)
[2021-06-01] MEDS: ATORVASTATIN 40 MG TAB PO SCH (20:27)
[2021-06-02] MEDS: ACETAMINOPHEN 325 MG TAB PO PRN (05:10)
--- NOTE | 2021-06-02 05:46 | Electrocardiogram Report ---
Test Reason : Blood Pressure : / mmHG Vent. Rate : 056 BPM Atrial Rate : 056 BPM P-R Int : 236 ms QRS Dur : 092 ms QT Int : 510 ms P-R-T Axes : 038 065 158 degrees QTc Int : 492 ms Sinus bradycardia with 1st degree A-V block T wave abnormality, consider anterolateral ischemia Prolonged QT Abnormal ECG When compared with ECG of 20-APR-2021 07:46, Inverted T waves have replaced nonspecific T wave abnormality in Anterolateral leads QT has lengthened Confirmed by Mervin Last ([id number]) on 06/02/2021 5:46:14 AM Referred By: REFERRED SELF Confirmed By:Mervin Last
[2021-06-02 08:00] LABS: INR 3.4 (0.9-1.1); Prothrombin Time 31.6 Seconds (9.0-12.0)
[2021-06-02] MEDS: CLOPIDOGREL BISULFATE 75 MG TAB PO SCH (08:07)
[2021-06-02] MEDS: ESCITALOPRAM OXALATE 10 MG TAB PO SCH (08:07)
[2021-06-02] MEDS: ASPIRIN 81 MG ECTAB PO SCH (08:07)
[2021-06-02] MEDS: METOPROLOL TARTRATE 25 MG TAB PO SCH (08:07)
[2021-06-02] MEDS: ISOSORBIDE MONO EXTENDED REL 30 MG TABCR PO SCH (08:07)
[2021-06-02] MEDS: PANTOprazole 40 MG TAB PO SCH (08:07)
[2021-06-02 08:16] LABS: Calcium 8.5 mg/dl (8.5-10.1); Creatinine Clr Calc Pharmacy 65.4 ml/min; Est GFR (African American) 84.9 ml/min; Est GFR (Non-African American) 73.2 ml/min; Potassium 4.4 mmol/L (3.5-5.1)
[2021-06-02] MEDS: INSULIN ASPART 100 UNITS/ML 3 ML PEN SC SCH ×2 (09:34→13:25)
[2021-06-02] MEDS ORDERED: METOPROLOL TARTRATE 25 MG TAB PO ONE (10:30)
--- NOTE | 2021-06-02 10:33 | Nephrology Progress Note ---
Date of Service June 02, 2021 Assessment & Plan (1) Chronic hyponatremia: Plan: pt historically has SIADH and intolerant of/ nonadherent to fluid limits. He appears to be responding more like a hypovolemic hyponatremia here though. He does seem a bit anxious,even a bit confused (though oriented x 3 and knows who president is) in his insistence/focus on immediate d/c, though I do not know his baseline MS. -ensure follow up/adjustment of thyroid medication -no IVF indicated for now OK from renal standpoint to d/c home: -adjust thyroid as above -recheck bmp, serum and urine osms, rd urine sodium on 06/08 > pls have d/c operations planner forward to renal nurse pool for Dr Winter -d/c on SIXTY oz fluid limit AND may have up to 16 oz V8 juice daily FOR NOW/may be subject to change -f/u w/ Dr Winter in 1-2 wks (2) Labile blood pressure: Plan: pt had syncope summer 2020 and 2019 both, presumed VV ; also had monitor with HR 49-160s; several recent OV in [employer] system with sbp 100-low 120s; also some issues noted last month and stopping BB altogether was contemplated but ultimately avoided; plan had been metoprolol succinate 25 mg daily not current OP metoprolol tartrate but this not done; plan had also been to schedule him w/ EP to VT hx. cardiology had been following fairly closely > pt was to see Dr Middleton today in fact and to have repeat TTE (not sure if latter was done). HTN as inpatient likley situational. apart from sinus bradycardia, no AR on monitor. -alerted Dr Hicks to above; he will ensure close in cardiology f/u and not modify BB dosing Admission and Anticipated Discharge Date Admission Date: May 31, 2021 Subjective seen on rounds at 1120; no sob, no n/v, no chest pain or foggy MS; no balance concerns; c/o chills; wants d/c home and mentions multiple times Review of Systems Review of Systems: All systems reviewed & are unremarkable except as noted in Subjective Physical Exam Constitutional: well developed, well nourished and cooperative; no acute distress Eyes: EOM intact bilaterally ENMT: Ears: no external ear abnormality Nose: no external nose abnormality Mouth: + dry oral mucous membranes Neck: no nuchal rigidity Respiratory: normal respiratory effort Auscultation: + diminished lung sounds Cardiovascular: RRR, no murmur, no edema Gastrointestinal (Abdomen): Inspection/Auscultation: normal bowel sounds Percussion/Palpation: abdomen soft; abdomen nontender Musculoskeletal: Extremities: strength 5/5 throughout Skin: no rashes, warm and dry Neurologic: littlejohn, fluent speech, no tremor but +tic/picking Psychiatric: Orientation: alert and oriented x 3 Speech: normal rate/rhythm/volume of speech Affect: + anxious affect Results & Data ([facility]) Vital Signs (Past 12 Hours) Vital Signs Temp Pulse Pulse Resp BP BP Pulse Ox 06/02/21 08:00 59 L 06/02/21 07:33 36.7 C 68 18 191/97 H 100 06/02/21 05:17 157/70 H 06/02/21 04:14 36.6 C 79 18 168/83 H 99 06/01/21 22:46 36.5 C 56 L 16 157/84 H 99 Laboratory Results 06/01/21 05:47 06/02/21 07:05
--- NOTE | 2021-06-02 14:51 | Hospitalist Progress Note ---
Date of Service June 02, 2021 Assessment & Plan (1) Chronic hyponatremia: Plan: Metabolic encephalopathy-improved Acute on chronic hyponatremia History of SIADH with chronic hyponatremia Has had dizziness with ambulation and acute confusion which is resolved Appreciate nephrology input and recommendation We will get PT and OT evaluation Repeat BMP tomorrow and if the sodium has been improving we will discharge home tomorrow His sodium is 129 today and he was seen by the auditor supervisor and will be discharged home this afternoon We will check BMP with follow-up appointment with the PCP and nephrology will see him in 2 weeks (2) SIADH (syndrome of inappropriate ADH production): Plan: The cause of chronic hyponatremia We will advised fluid reduction as recommended by the auditor supervisor (3) Diarrhea: Plan: Diarrhea seems to be improved Might be the cause for acute hyponatremia (4) COVID-19: Plan: He is being vaccinated with [employer] vaccine Noted to have COVID-19 positive-remains asymptomatic Will need 10 days of isolation as advised (5) S/P CABG x 3: Plan: No cardiac symptoms (6) Diabetes mellitus type 2 with complications: Plan: Continue with SSI (7) Hypertension: Plan: Blood pressure is controlled Blood pressure high this morning likely secondary to anxiety but that has come down to normal (8) Paroxysmal atrial fibrillation: Plan: Regular heart rate Has been on Coumadin INR is therapeutic Admission and Anticipated Discharge Date Admission Date: May 31, 2021 Subjective 06/01/2021 The patient was seen and examined in telemetry unit and in the Covid room He remains weak and lethargic and dizzy when moving around His sodium remains low but he wants to go home Has been Covid positive but remains totally asymptomatic 06/02/2021 The patient was seen and examined in telemetry unit and in the Covid room He has been feeling much better and wants to get out of the hospital He has had some questionable dizziness in the morning with high blood pressure but that has been well controlled right now He will be discharged home this afternoon Review of Systems Review of Systems: All systems reviewed and are unremarkable except as noted below Respiratory: No respiratory symptoms Neurologic: Dizziness when ambulant Physical Exam Physical Exam: Sitting on a chair without any acute distress Constitutional: well developed, well nourished and + obese; not ill appearing Eyes: PERRL, conjunctivae normal, anicteric sclerae ENMT: external ear and nose normal, oropharynx normal Neck: trachea midline, no thyromegaly Respiratory: no respiratory distress and no cough Auscultation: lungs clear to auscultation bilaterally and + diminished lung sounds; no crackles and no wheezes Cardiovascular: Rate/Rhythm: regular rate and regular rhythm; not tachycardic Heart Sounds: normal S1 and normal S2; no murmur Extremities: no edema Gastrointestinal (Abdomen): Inspection/Auscultation: normal bowel sounds; abdomen not distended Percussion/Palpation: abdomen soft; abdomen nontender Musculoskeletal: No acute arthritis in any joint Neurologic: Alert, awake and oriented x3. No focal sensory no motor deficit appreciated Psychiatric: A+Ox3, euthymic affect Lymphatic: no cervical or axillary lymphadenopathy Results & Data Results & Data ([facility]) Vital Signs (Past 12 Hours) Vital Signs Temp Pulse Pulse Resp BP Pulse Ox 06/02/21 11:20 36.8 C 55 L 19 135/65 98 06/02/21 08:00 59 L 06/02/21 07:33 36.7 C 68 18 191/97 H 100 06/02/21 05:17 157/70 H 06/02/21 04:14 36.6 C 79 18 168/83 H 99 Laboratory Results BMP 06/01/21 06/01/21 06/02/21 15:10 17:55 07:05 Sodium 126 L 126 L 129 L Potassium 4.3 4.4 Chloride 97 L 100 Carbon Dioxide 22 20 L BUN 14 12 Creatinine 1.04 0.95 Glucose 120 H 91 Calcium 8.6 8.5 Medications Administered Current Inpatient Medications Acetaminophen (Acetaminophen 325 Mg Tab) 650 mg PO Q4H PRN PRN Reason: Pain or Fever Stop: 06/30/21 22:43 Last Admin: 06/02/21 05:10 Dose: 650 mg Documented by: Aspirin (Aspirin 81 Mg Ectab) [facility] Stop: 07/01/21 08:59 Last Admin: 06/02/21 08:07 Dose: 81 mg Documented by: Atorvastatin Calcium (Atorvastatin 40 Mg Tab) 80 mg PO [facility] Stop: 06/30/21 22:43 Last Admin: 06/01/21 20:27 Dose: 80 mg Documented by: Clopidogrel Bisulfate (Clopidogrel Bisulfate 75 Mg Tab) 75 [facility] Stop: 07/01/21 08:59 Last Admin: 06/02/21 08:07 Dose: 75 mg Documented by: Escitalopram Oxalate (Escitalopram Oxalate 10 Mg Tab) 5 mg [facility] Stop: 07/01/21 08:59 Last Admin: 06/02/21 08:07 Dose: 5 mg Documented by: Hydralazine HCl (Hydralazine Hcl 20 Mg/Ml Vial) 5 mg IV Q6H PRN PRN Reason: Hypertension Stop: 06/30/21 22:43 Insulin Aspart (Insulin Aspart 100 Units/Ml 3 Ml Pen) 0 units SC [facility] Stop: 06/30/21 22:43 Last Admin: 06/02/21 13:25 Dose: 3 units Documented by: Isosorbide Mononitrate (Isosorbide Miner Extended Rel 30 Mg Tabcr) 30 mg PO [facility] Stop: 07/01/21 08:59 Last Admin: 06/02/21 08:07 Dose: 30 mg Documented by: Metoprolol Tartrate (Metoprolol Tartrate 25 Mg Tab) 25 mg PO BID [facility] Stop: 07/02/21 20:59 Nitroglycerin (Nitroglycerin Sl 0.4 Mg/Tab Tab) 0.4 mg SL UD PRN PRN Reason: Chest Pain Stop: 06/30/21 22:43 Ondansetron HCl (Ondansetron Inj 2 Mg/Ml 2 Ml Vial) 4 mg IV Q6H PRN PRN Reason: Nausea Stop: 06/30/21 22:43 Pantoprazole Sodium (Pantoprazole 40 Mg Tab) 40 mg PO [facility] Stop: 07/01/21 08:59 Last Admin: 06/02/21 08:07 Dose: 40 mg Documented by: Warfarin Sodium (Warfarin Sod 5 Mg Tab) 5 mg PO [email or web address] [facility] Stop: 07/01/21 19:59 Warfarin Sodium (Warfarin Sod 2.5 Mg Tab) 2.5 mg PO [email or web address] [facility] Stop: 07/02/21 19:59 (1) Hypertension Hypertension type: essential hypertension Qualified Code(s): I10 - Essential (primary) hypertension
[2021-06-02] MEDS ORDERED: WARFARIN SOD 2.5 MG TAB PO SCH (20:00)
[2021-06-02] MEDS ORDERED: METOPROLOL TARTRATE 25 MG TAB PO SCH (21:00)
--- NOTE | 2021-06-03 08:06 | Discharge Summary ---
Date of Service June 03, 2021 Admission HPI Per Admitting Provider DICTATED BY:Wayne Holbrook MD DATE OF ADMISSION: 05/31/2021. CHIEF COMPLAINT: Nausea, diarrhea and confusion. HISTORY OF PRESENT ILLNESS: This is an 86-year-old male with past medical history significant for type 2 diabetes, diabetic retinopathy, SIADH, hyperlipidemia, hypothyroidism, atrial fibrillation on Coumadin; CAD status post CABG, GERD, BPH, arthritis, dermatitis, depression, status post lumbar spinal fusion surgery, who lives at home with his , presents with some confusion, nausea, not feeling well. Since today, patient had a couple episodes of diarrhea. No blood in the stools. Has nausea. Appetite is down and feeling chills, questionable shortness of breath, no fevers. As he was not feeling well, he was brought in by his and found to have sodium of 124, potassium of 3.4, magnesium of 1.5, INR 4.6. Urinalysis negative. Influenza A and B negative. Rapid COVID test is negative. The patient has been vaccinated with [employer] COVID vaccine, last dose was on 10/09/2020. Subsequent booster on 06/11/2021. Patient currently is somewhat restless, wants to go home, but okay to stay. Earlier he had a headache, but right now there is no headache. Vision is okay. No earache, no runny nose, no sore throat, no cough, no chest pain, no abdominal pain. Normal bladder movements. He says he urinates a lot. He ambulates without any support. says he has lost about 6-7 pounds since last December, but totally lost about 20 pounds in several months and his family doctor is following that. His sodium is usually in the 130s.As per the Nephrology he seems to drink a lot of water and agrees with it. Patient says he has some dry mouth. Admission Exam Per Admitting Provider GENERAL: The patient is of moderate build, not in acute distress. VITAL SIGNS: Temperature 36.7, pulse 76, respiratory rate 20, blood pressure 151/85, oxygen 100% on room air. HEENT: Pupils equal, round and reactive to light. Oral mucosa moist. NECK: No neck masses seen. No JVD seen. CARDIOVASCULAR: S1 and S2 heard. Regular rate and rhythm. No murmur, no gallop. RESPIRATORY: Normal AP diameter. No accessory muscle use. No wheezing, no crackles. ABDOMEN: Soft, bowel sounds present, nontender, no distention. CENTRAL NERVOUS SYSTEM: Cranial nerves II-XII grossly intact, nonfocal. EXTREMITIES: Trace edema, no erythema seen. Principal Diagnosis Metabolic encephalopathy, acute on chronic hyponatremia, SIADH, high blood pressure Discharge Exam Sitting on a chair without any acute distress Constitutional well developed, well nourished and + obese; not ill appearing Eyes PERRL, conjunctivae normal, anicteric sclerae ENMT external ear and nose normal, oropharynx normal Neck trachea midline, no thyromegaly Respiratory no respiratory distress and no cough Auscultation: lungs clear to auscultation bilaterally and + diminished lung sounds; no crackles and no wheezes Cardiovascular Rate/Rhythm: regular rate and regular rhythm; not tachycardic Heart Sounds: normal S1 and normal S2; no murmur Extremities: no edema Gastrointestinal (Abdomen) Inspection/Auscultation: normal bowel sounds; abdomen not distended Percussion/Palpation: abdomen soft; abdomen nontender Psychiatric A+Ox3, euthymic affect Lymphatic no cervical or axillary lymphadenopathy Discharge Data Allergies Allergy/AdvReac Type Severity Reaction Status Date / Time bee venom protein (honey bee) Allergy Unknown swelling Verified 05/31/21 17:06 iodine Allergy Unknown DUE TO Verified 05/31/21 17:06 SHELLFISH ALLERGY-IODINATED DYE-UNKNOWN morphine Allergy Unknown stopped Verified 05/31/21 17:06 breathing Penicillins Allergy Unknown RASH Verified 05/31/21 17:06 shellfish derived Allergy Unknown ANAPHYLAXIS Verified 05/31/21 17:06 Consultations 06/01/21 08:00 Consult Nephrology Routine Ordered Studies 05/31/21 14:48 CT head/brain wo con Stat Hospital Course (1) Chronic hyponatremia: Metabolic encephalopathy-improved Acute on chronic hyponatremia History of SIADH with chronic hyponatremia Has had dizziness with ambulation and acute confusion which is resolved Appreciate nephrology input and recommendation We will get PT and OT evaluation Repeat BMP tomorrow and if the sodium has been improving we will discharge home tomorrow His sodium is 129 today and he was seen by the capability lead and will be discharged home this afternoon We will check BMP with follow-up appointment with the PCP and nephrology will see him in 2 weeks (2) SIADH (syndrome of inappropriate ADH production): The cause of chronic hyponatremia We will advised fluid reduction as recommended by the capability lead (3) Diarrhea: Diarrhea seems to be improved Might be the cause for acute hyponatremia (4) COVID-19: He is being vaccinated with [employer] vaccine Noted to have COVID-19 positive-remains asymptomatic Will need 10 days of isolation as advised (5) S/P CABG x 3: No cardiac symptoms (6) Diabetes mellitus type 2 with complications: Continue with SSI (7) Hypertension: Blood pressure is controlled Blood pressure high this morning likely secondary to anxiety but that has come down to normal (8) Paroxysmal atrial fibrillation: Regular heart rate Has been on Coumadin INR is therapeutic Total Time Total Time Spent Total Time Spent (In Minutes): 40 minutes Discharge Plan Discharge Items Patient Disposition: Home - Self-Care Reason For Visit: DIZZY LIGHTHEADED Discharge Diagnosis: Metabolic encephalopathy, acute on chronic hyponatremia, SIADH, high blood pressure Condition on Discharge: Fair Activity: Resume your previous activity Non-emergency contact: Primary Care Provider Call non-emergency contact if: you have any medication questions Follow-up/Referrals: Angelo Vazquez MD [Primary Care Provider] - (Date & Time 06/15/2021 10:00 AM Provider Angelo Vazquez MD Department Family Practice [facility] IF YOU HAVE ACCESS TO AN ELECTRONIC DEVICE, YOU MAY HAVE A TELEHEALTH APPOINTEMENT AT AN EARLIER DATE. IF SO, PLEASE CALL TO SET UP A TELEHEALTH APPOINTMENT. ) Ewelina Poole PA-C [Physician Patent Engineer] - (Date & Time 06/17/2021 3:00 PM Provider Ewelina Poole PA-C Department Cardiology, [facility] ) Diet: Carb Consistent or DM2 Fluids: 1500ml (6 cups) Addtl Attending Provider Instructions: Please take precautions to prevent fall Try to restrict your fluid intake to 60 ounces in 24 hours and may have 16 ounces V8 juice daily Please check BMP, serum and urine osmole's and random urine sodium on 06/[address] Carline Dennis Please keep appointments with your healthcare providers Please follow the isolation requirements until June 10 as advised by CDC as below: Home Isolation COVID-19 Instructions The following information about Home Isolation is from the CDC Website: https://www.cdc.gov/coronavirus/2019-ncov/hcp/ypyrdmxa-qqyivcn-cgiyrl.html Stay home except to get medical care People who are mildly ill with COVID-19 are able to isolate at home during their illness. You should restrict activities outside your home, except for getting medical care. Do not go to work, school, or public areas. Avoid using public transportation, ride-sharing, or taxis. Separate yourself from other people and animals in your home People: As much as possible, you should stay in a specific room and away from other people in your home. Also, you should use a separate bathroom, if available. Animals: You should restrict contact with pets and other animals while you are sick with COVID-19, just like you would around other people. Although there have not been reports of pets or other animals becoming sick with COVID-19, it is still recommended that people sick with COVID-19 limit contact with animals until more information is known about the virus. When possible, have another member of your household care for your animals while you are sick. If you are sick with COVID-19, avoid contact with your pet, including petting, snuggling, being kissed or licked, and sharing food. If you must care for your pet or be around animals while you are sick, wash your hands before and after you interact with pets and wear a face mask. Call ahead before visiting your doctor If you have a medical appointment, call the healthcare provider and tell them that you have or may have COVID-19. This will help the healthcare providers office take steps to keep other people from getting infected or exposed. Wear a face mask You should wear a face mask when you are around other people (e.g., sharing a room or vehicle) or pets and before you enter a healthcare providers office. If you are not able to wear a face mask (for example, because it causes trouble breathing), then people who live with you should not stay in the same room with you, or they should wear a face mask if they enter your room. Cover your coughs and sneezes Cover your mouth and nose with a tissue when you cough or sneeze. Throw used tissues in a lined trash can. Immediately wash your hands with soap and water for at least 20 seconds or, if soap and water are not available, clean your hands with an alcohol-based hand dumper operator that contains at least 60% alcohol. Clean your hands often Wash your hands often with soap and water for at least 20 seconds, especially after blowing your nose, coughing, or sneezing; going to the bathroom; and before eating or preparing food. If soap and water are not readily available, use an alcohol-based hand dumper operator with at least 60% alcohol, covering all surfaces of your hands and rubbing them together until they feel dry. Soap and water are the best option if hands are visibly dirty. Avoid touching your eyes, nose, and mouth with unwashed hands. Avoid sharing personal household items You should not share dishes, drinking glasses, cups, eating utensils, towels, or bedding with other people or pets in your home. After using these items, they should be washed thoroughly with soap and water. Clean all high-touch surfaces everyday High touch surfaces include counters, tabletops, doorknobs, bathroom fixtures, toilets, phones, keyboards, tablets, and bedside tables. Also, clean any surfaces that may have blood, stool, or body fluids on them. Use a household cleaning spray or wipe, according to the label instructions. Labels contain instructions for safe and effective use of the cleaning product including precautions you should take when applying the product, such as wearing gloves and making sure you have good ventilation during use of the product. Monitor your symptoms Seek prompt medical attention if your illness is worsening (e.g., difficulty breathing).Beforeseeking care, call your healthcare provider and tell them that you have, or are being evaluated for, COVID-19. Put on a face mask before you enter the facility. These steps will help the healthcare providers office to keep other people in the office or waiting room from getting infected or exposed. Ask your healthcare provider to call the local or state health department. Persons who are placed under active monitoring or facilitated self- monitoring should follow instructions provided by their local health department or occupational health professionals, as appropriate. When working with your local health department check their available hours. If you have a medical emergency and need to call 911, notify the dispatch personnel that you have, or are being evaluated for COVID-19. If possible, put on a face mask before emergency medical services arrive. Discontinuing home isolation Patients with confirmed COVID-19 should remain under home isolation precautions until the risk of secondary transmission to others is thought to be low. The decision to discontinue home isolation precautions should be made on a [id number] basis, in consultation with healthcare providers and state and local health departments. Pending Studies at Discharge: No Stand-Alone Forms: My [facility] Social, Smoking Cessation Medications and DC Order Prescriptions: Continued metformin 500 mg Tablet 500 mg PO QAM RF: 0 atorvastatin 80 mg Tablet 80 mg PO HS RF: 0 isosorbide mononitrate 30 mg Tablet Extended Release 24 Hr 30 mg PO QAM RF: 0 clopidogrel 75 mg Tablet 75 mg PO QAM RF: 0 aspirin 81 mg Tablet,Delayed Release (Dr/Ec) 81 mg PO QAM RF: 0 pantoprazole 40 mg Tablet,Delayed Release (Dr/Ec) 40 mg PO QAM RF: 0 warfarin 5 mg Tablet 5 mg PO 2XWK RF: 0 warfarin 5 mg Tablet 2.5 mg PO 5XWK RF: 0 metoprolol tartrate 25 mg Tablet 12.5 mg PO BID RF: 0 nitroglycerin 0.4 mg tablet, sublingual 0.4 mg sublingual Q5M PRN (Reason: Chest Pain) RF: 0 escitalopram oxalate 5 mg tablet 5 mg PO QAM RF: 0 Discharge Orders: Discharge Order (Routine); Ordered 06/02/21 Ordered By: Opal Mora/Other Patient Handouts: High Blood Sugar (Hyperglycemia), Hypoglycemia (Low Blood Sugar), Managing Type 2 Diabetes Admission Data Admit Date/Time: 05/31/21 18:19 Attending Provider: Opal Hicks Admit Provider: Wayne Holbrook Primary Care Provider: Angelo Vazquez Other Providers: Tess Badillo ; Wayne Holbrook Other Interventions: Discharge Summary Assessment (RN) Last Done: 06/02/21 15:24
== END 2021-06-02 16:30 | disposition home or self-care (01) | DRG 643 ==
LOC: ED 12:51 → EDINP 18:19 → SUATTDRO 18:19 → 2S 06-01 01:34

== ENCOUNTER 2022-11-29 12:53 | Inpatient (IN) ==
--- NOTE | 2022-11-29 13:49 | XRay Report ---
XR chest 1V not portable CLINICAL HISTORY: Chest pain, nonspecific COMPARISON STUDY: Chest radiograph May 31, 2021. FINDINGS: There are median sternotomy wires. Mediastinal surgical clips are present. Moderate cardiom egaly is noted. There is no pneumothorax. Suspected trace bilateral pleural effusions are present. In terstitial thickening is noted. IMPRESSION: 1. Interstitial thickening which favors pulmonary edema. An infectious process or interstitial lung d isease are within the differential but considered less likely. Radiographic follow-up is recommended. 2. Trace bilateral pleural effusions. ACT 112: Negative or not required by law. Electronically signed by: Sunday Jeffries M.D. 11/29/2022 1:48 PM
--- NOTE | 2022-11-29 14:45 | Electrocardiogram Report ---
Test Reason : Blood Pressure : / mmHG Vent. Rate : 083 BPM Atrial Rate : 000 BPM P-R Int : 000 ms QRS Dur : 090 ms QT Int : 410 ms P-R-T Axes : 000 082 171 degrees QTc Int : 481 ms Probable Accelerated Junctional rhythm Poor R wave progression, consider anterior IA vs. lead placement vs. LVH T wave abnormality, consider inferolateral ischemia Abnormal ECG When compared with ECG of 31-MAY-2021 14:16, Junctional rhythm has replaced Sinus rhythm Vent. rate has increased BY 27 BPM T wave inversion less evident in Lateral leads Confirmed by Alfredo Russell ([id number]) on 11/29/2022 2:44:57 PM Referred By: Confirmed By:Alfredo Russell
[2022-11-29 16:08] LABS: Basophils # (auto) 0.04 K/uL (0-0.2); Basophils % (auto) 0.7 %; Eosinophils # (auto) 0.15 K/uL (0-0.50); Eosinophils % (auto) 2.5 %; Hematocrit (blood only) 37.2 % (42.0-52.0); Hemoglobin 12.4 g/dl (14.0-18.0); Immature Granulocytes # (auto) 0.02 K/uL (0.01-0.20); Immature Granulocytes % (auto) 0.3 %; Lymphocytes # (auto) 1.13 K/uL (1.2-3.4); Lymphocytes % (auto) 19.2 %; Mean Corpuscular Hemoglobin 27.4 pg (25.0-34.0); Mean Corpuscular Hgb Conc 33.3 g/dL (32.0-36.0); Mean Corpuscular Volume 82.1 fL (80.0-100.0); Mean Platelet Volume 9.5 fL (9.4-12.4); Monocytes # (auto) 0.67 K/uL (0.11-0.59); Monocytes % (auto) 11.4 %; Neutrophils # (auto) 3.89 K/uL (1.40-6.50); Neutrophils % (auto) 65.9 %; Platelet Count 129 K/uL (130-400); RDW Coefficient of Variation 16.3 % (11.5-14.5); RDW Standard Deviation 49.2 fL (36.4-46.3); Red Blood Count 4.53 M/uL (4.70-6.10)
--- NOTE | 2022-11-29 16:13 | Emergency Department Note ---
Impression & Plan Pulmonary edema, Acute hyponatremia Admit to the hospitalist ED Provider Note NAME: SOFIA PÉREZ Sr AGE: 87 SEX: M ARRIVES VIA: Walk-In INFORMANT: Patient ED PROVIDER(S): Ryanne Ramos DO CHIEF COMPLAINT: Exertional shortness of breath PLAN: Disposition: Dyspnea on exertion and orthopnea Condition: Guarded MEDICAL DECISION MAKING: This is an 87-year-old male patient who presents to the emergency department with exertional shortness of breath and orthopnea. Chest x-ray shows evidence of pulmonary edema and pleural effusion. The patient has a stable pulse ox at this time however he has significant peripheral edema. He has a normal creatinine but has chronic hyponatremia but sodium is even somewhat lower at 124. Potassium is normal. Patient was given a dose of IV Lasix here in the emergency department. Patient is on chronic Coumadin for pulmonary emboli. INR is currently slightly supratherapeutic at 5.4. I have discussed the case with the hospitalist and they will evaluate for further inpatient care. Triage Nursing notes reviewed and agree with them. Additional history obtained from his and [id number] External medical records were reviewed including previous [facility] admissions Vital Signs: reviewed and remarkable for mild hypertension Differential diagnosis: Pulmonary edema, pneumonia, cardiac ischemia, PE ER treatment provided: Cardiac monitoring Twelve-lead EKG IV Lasix Diagnostics interpreted by me: ECG: Accelerated junctional rhythm at a rate of [address] segment elevation. T wave inversion in the inferior and lateral leads compared to an EKG from 05/31/2021 Cardiac Monitoring: Junctional rhythm at 86 Laboratory studies: See below Imaging studies: As per my independent interpretation Portable chest x-ray: Cardiomegaly with pulmonary edema HPI: 87/M arrives for evaluation of shortness of breath. Patient describes worsening shortness of breath especially with ambulation. His family states that his symptoms are worsened over the past couple weeks/months but especially in the past 1 week. Patient states that he has significant difficulty sleeping especially trying to lie flat. PAST MEDICAL HISTORY:See Below PAST SURGICAL HISTORY:See Below FAMILY HISTORY:See Below SOCIAL HISTORY:See Below HOME MEDICATIONS:See list ALLERGIES:See list VITALS:See Below PHYSICAL EXAMINATION: HEENT: Head - normocephalic and atraumatic Pupils are equal, round, and reactive to light. Extraocular eye muscles are intact, and sclera are anicteric. Nose - moist nasal mucosa without discharge. Mouth - moist buccal mucosa. Oropharynx is nonerythematous and there is no tonsillar exudate or edema noted. Neck: Supple; no cervical lymphadenopathy or JVD Heart: Regular rate and rhythm. There is a normal S1 and S2 with no murmurs, clicks, or gallops appreciated. Lungs: Diminished breath sounds at both lung bases Abdomen: Soft, completely nontender, nondistended, with good bowel sounds. There are no palpable pulsatile masses or hepatosplenomegaly. There is no guarding, rigidity, or rebound noted. Extremities: 3+ pitting edema both lower extremities there are easily palpable peripheral pulses. Skin: Pale, warm and dry with good turgor and no rashes. ED COURSE: Times/Reassessments: 1545: Patient was evaluated in room B12. A complete history and physical was performed. An order was placed for continuous cardiac monitoring. The patient was in a junctional rhythm at a rate of 86. A twelve-lead EKG was obtained as described above. A portable chest x-ray was performed. The patient was given a dose of IV Lasix. I discussed the case with the [facility] Hospitalist and they will evaluate for further management. 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; [place]" S/P total hip arthroplasty S/P total knee arthroplasty Family History Father Coronary heart disease Social History Smoking Status: Never smoker Second Hand Exposure: No; Do You Dip or Chew Tobacco: No; Hx Alcohol Use: No Hx Substance Use: No Preferred Language: Gambian Communication Ability: Effective [employer] Required: No Beliefs That Will Affect Care: None marital status: Current Living Situation: Spouse current occupational status: retired Other Information That Helps Us Care for You: No Feels Safe at Home: Yes Safety Concerns: Feels Safe At This Time Assistive Devices: None Allergies Allergies Allergy/AdvReac Type Severity Reaction Status Date / Time bee venom protein (honey bee) Allergy Unknown swelling Verified 05/31/21 17:06 iodine Allergy Unknown DUE TO Verified 05/31/21 17:06 SHELLFISH ALLERGY-IODINATED DYE-UNKNOWN morphine Allergy Unknown stopped Verified 05/31/21 17:06 breathing Penicillins Allergy Unknown RASH Verified 05/31/21 17:06 shellfish derived Allergy Unknown ANAPHYLAXIS Verified 05/31/21 17:06 Home Meds Home Medications Medication Instructions Recorded Confirmed aspirin 81 mg tablet,delayed 81 mg PO QA 07/21/19 11/29/22 release atorvastatin 80 mg tablet 80 mg PO HS 07/21/19 11/29/22 clopidogrel 75 mg tablet 75 mg PO QA 07/21/19 11/29/22 isosorbide mononitrate 30 mg 15 mg PO QA 07/21/19 11/29/22 tablet,extended release 24 hr metformin 500 mg tablet 500 mg PO QA 07/21/19 11/29/22 pantoprazole 40 mg tablet,delayed 40 mg PO QAM 07/21/19 11/29/22 release warfarin 5 mg tablet 2.5 mg PO SUTUTHSA@1600 07/21/19 11/29/22 warfarin 5 mg tablet 5 mg PO MOWEFR@1600 07/21/19 11/29/22 escitalopram oxalate 5 mg tablet 5 mg PO QA 05/31/21 11/29/22 nitroglycerin 0.4 mg sublingual 0.4 mg sublingual Q5M PRN Chest 05/31/21 11/29/22 tablet Pain finasteride 5 mg tablet 5 mg PO QAM 11/29/22 11/29/22 iron,carbonyl 65 mg-vitamin C 125 1 tab PO QA 11/29/22 11/29/22 mg tablet,delayed release (Vitron-C) levothyroxine 50 mcg tablet 50 mcg PO DAILYBB 11/29/22 11/29/22 metoprolol succinate 25 mg 25 mg PO DAILY 11/29/22 11/29/22 tablet,extended release 24 hr sodium chloride 1 gram tablet 500 mg PO AMHS 11/29/22 11/29/22 Results & Data (ED) Vital Signs Vital Signs - 24 hr 11/29/22 16:23 11/29/22 16:24 11/29/22 17:00 Pulse Rate 83 Pulse Rate [Apical] 83 Respiratory Rate 26 H 16 Respiratory Effort / Characteristics Non-Labored Spontaneous Short of Breath Respiratory Depth Normal Blood Pressure 162/111 H Blood Pressure [Right Arm] 166/104 H Blood Pressure Mean 128 Blood Pressure Mean [Right Arm] 124 Pulse Oximetry 95 98 Oxygen Delivery Method Room Air Room Air Laboratory Data 11/29/22 15:44 11/29/22 15:44 Lab Results 11/29/22 11/29/22 11/29/22 Range/Units 15:44 15:44 15:44 WBC 5.90 (4.8-10.8) K/ul RBC 4.53 L (4.70-6.10) M/uL Hgb 12.4 L (14.0-18.0) g/dl Hct 37.2 L (42.0-52.0) % MCV 82.1 (80.0-100.0) fL MCH 27.4 (25.0-34.0) pg MCHC 33.3 (32.0-36.0) g/dL RDW Std Deviation 49.2 H (36.4-46.3) fL RDW Coeff of [place] 16.3 H (11.5-14.5) % Plt Count 129 L (130-400) K/uL MPV 9.5 (9.4-12.4) fL Immature Gran % (Auto) 0.3 % Neut % (Auto) 65.9 % Lymph % (Auto) 19.2 % [place] % (Auto) 11.4 % Eos % (Auto) 2.5 % Baso % (Auto) 0.7 % Neut # (Auto) 3.89 (1.40-6.50) K/uL Lymph # (Auto) 1.13 L (1.2-3.4) K/uL [place] # (Auto) 0.67 H (0.11-0.59) K/uL Eos # (Auto) 0.15 (0-0.50) K/uL Baso # (Auto) 0.04 (0-0.2) K/uL Immature Gran # (Auto) 0.02 (0.01-0.20) K/uL PT 52.9 H (9.0-12.0) Seconds INR 5.4 H (0.9-1.1) APTT 36.7 H (21.0-31.0) Seconds PTT Ratio 1.3 Sodium 124 L (136-145) mmol/L Potassium 4.6 (3.5-5.1) mmol/L Chloride 91 L (98-107) mmol/L Carbon Dioxide 24 (21-32) mmol/L Anion Gap 9 (3-11) BUN 22 (6-23) mg/dl Creatinine 0.86 (0.6-1.4) mg/dl Est Cr Clr Drug Dosing 78.1 ml/min Est GFR ( Amer) 91.6 ml/min Est GFR (Non-Af Amer) 79.1 ml/min BUN/Creatinine Ratio 25.6 H (10-20) Glucose 119 H (70-99(Fasting)) mg/dl Calcium 8.8 (8.6-10.3) mg/dl Total Bilirubin 1.3 H (0.2-1.0) mg/dl AST 44 H (13-39) U/L ALT 28 (7-52) U/L Alkaline Phosphatase 69 (34-104) U/L Troponin I High Sens 19.6 (0-20) pg/ml Total Protein 7.3 (6.0-8.3) gm/dl Albumin 4.1 (3.4-5.0) gm/dl Globulin 3.2 (2.5-4.0) gm/dl Albumin/Globulin Ratio 1.3 (0.9-2) SARS-CoV-2, RNA, NAAT (NEGATIVE) 11/29/22 Range/Units 17:48 WBC (4.8-10.8) K/ul RBC (4.70-6.10) M/uL Hgb (14.0-18.0) g/dl Hct (42.0-52.0) % MCV (80.0-100.0) fL MCH (25.0-34.0) pg MCHC (32.0-36.0) g/dL RDW Std Deviation (36.4-46.3) fL RDW Coeff of [place] (11.5-14.5) % Plt Count (130-400) K/uL MPV (9.4-12.4) fL Immature Gran % (Auto) % Neut % (Auto) % Lymph % (Auto) % [place] % (Auto) % Eos % (Auto) % Baso % (Auto) % Neut # (Auto) (1.40-6.50) K/uL Lymph # (Auto) (1.2-3.4) K/uL [place] # (Auto) (0.11-0.59) K/uL Eos # (Auto) (0-0.50) K/uL Baso # (Auto) (0-0.2) K/uL Immature Gran # (Auto) (0.01-0.20) K/uL PT (9.0-12.0) Seconds INR (0.9-1.1) APTT (21.0-31.0) Seconds PTT Ratio Sodium (136-145) mmol/L Potassium (3.5-5.1) mmol/L Chloride (98-107) mmol/L Carbon Dioxide (21-32) mmol/L Anion Gap (3-11) BUN (6-23) mg/dl Creatinine (0.6-1.4) mg/dl Est Cr Clr Drug Dosing ml/min Est GFR ( Amer) ml/min Est GFR (Non-Af Amer) ml/min BUN/Creatinine Ratio (10-20) Glucose (70-99(Fasting)) mg/dl Calcium (8.6-10.3) mg/dl Total Bilirubin (0.2-1.0) mg/dl AST (13-39) U/L ALT (7-52) U/L Alkaline Phosphatase (34-104) U/L Troponin I High Sens (0-20) pg/ml Total Protein (6.0-8.3) gm/dl Albumin (3.4-5.0) gm/dl Globulin (2.5-4.0) gm/dl Albumin/Globulin Ratio (0.9-2) SARS-CoV-2, RNA, NAAT NEGATIVE (NEGATIVE) Administered Medications Ascorbic Acid (Ascorbic Acid 500 Mg Tab) 250 mg PO QA [facility] Stop: 12/30/22 08:59 Last Admin: 11/30/22 08:25 Dose: 250 mg Documented By: DMB Atorvastatin Calcium (Atorvastatin 40 Mg Tab) 80 mg PO HS [facility] Stop: 12/29/22 21:50 Last Admin: 11/30/22 01:13 Dose: 80 mg Documented By: BETTY Escitalopram Oxalate (Escitalopram Oxalate 10 Mg Tab) 5 mg PO QAM [facility] Stop: 12/30/22 08:59 Last Admin: 11/30/22 08:25 Dose: 5 mg Documented By: CORTES Ferrous Sulfate (Ferrous Sulfate 325 Mg Tab) 325 mg PO QAM [facility] Stop: 12/30/22 08:59 Last Admin: 11/30/22 08:25 Dose: 325 mg Documented By: CORTES Finasteride (Finasteride 5 Mg Tab) [facility] [place] Stop: 12/30/22 08:59 Last Admin: 11/30/22 08:26 Dose: 5 mg Documented By: CORTES Insulin Aspart (Insulin Aspart Per Unit Charge) 0 units SC [facility] Stop: 12/29/22 21:50 Last Admin: 11/30/22 12:43 Dose: Not Given Documented By: Admin: 11/30/22 08:20 Dose: Not Given Documented By: Admin: 11/29/22 23:23 Dose: Not Given Documented By: SAMARA Isosorbide Mononitrate (Isosorbide [place] Extended Rel 30 Mg Tabcr) 15 mg PO [facility] Stop: 12/30/22 08:59 Last Admin: 11/30/22 08:26 Dose: 15 mg Documented By: CORTES Levothyroxine Sodium (Levothyroxine Sodium 50 Mcg Tablet) 50 mcg PO DAILYBB [facility] Stop: 12/30/22 06:29 Last Admin: 11/30/22 05:39 Dose: 50 mcg Documented By: BETTY Metoprolol Succinate (Metoprolol Succ 25mg Ext Rel Tab) 25 mg PO DAILY [facility] Stop: 12/30/22 08:59 Last Admin: 11/30/22 08:26 Dose: 25 mg Documented By: CORTES Pantoprazole Sodium (Pantoprazole 40 Mg Tab) 40 mg PO QAM [facility] Stop: 12/30/22 08:59 Last Admin: 11/30/22 08:26 Dose: 40 mg Documented By: CORTES Discontinued Medications Furosemide (Furosemide 40 Mg/4 Ml Vial) 40 mg IV ONE ONE Stop: 11/29/22 17:41 Last Admin: 11/29/22 18:16 Dose: 40 mg Documented By: ROSALINDA Furosemide (Furosemide 40 Mg/4 Ml Vial) 40 mg IV ONE ONE Stop: 11/30/22 08:01 Last Admin: 11/30/22 08:24 Dose: 40 mg Documented By: CORTES Magnesium Sulfate/Dextrose (Magnesium Sulfate / D5w) 1 gm in 100 mls @ 50 mls/hr IV ONE ONE Stop: 11/30/22 09:44 Last Infusion: 11/30/22 10:23 Dose: 0 mls/hr Documented By: Admin: 11/30/22 08:22 Dose: 50 mls/hr Documented By: CORTES Phytonadione (Phytonadione 5 Mg Tab) 5 mg PO NOW STA Stop: 11/30/22 08:16 Last Admin: 11/30/22 08:30 Dose: 5 mg Documented By: CORTES Sodium Chloride (Sodium Chloride 1 Gm Tablet) 0.5 gm PO AMHS [facility] Stop: 12/29/22 21:50 Last Admin: 11/30/22 08:26 Dose: 0.5 gm Documented By: Admin: 11/30/22 01:13 Dose: 0.5 gm Documented By: BETTY Imaging Data Radiologist's Impression: Chest X-Ray 11/29/22 13:01 XR chest 1V not portable CLINICAL HISTORY: Chest pain, nonspecific COMPARISON STUDY: Chest radiograph May 31, 2021. FINDINGS: There are median sternotomy wires. Mediastinal surgical clips are present. Moderate cardiomegaly is noted. There is no pneumothorax. Suspected trace bilateral pleural effusions are present. Interstitial thickening is noted. IMPRESSION: 1. Interstitial thickening which favors pulmonary edema. An infectious process or interstitial lung disease are within the differential but considered less likely. Radiographic follow-up is recommended. 2. Trace bilateral pleural effusions. ACT 112: Negative or not required by law. Electronically signed by: Sunday Jeffries M.D. 11/29/2022 1:48 PM Discharge Plan Visit Data Chief Complaint: Cardiac Assessment Stated Complaint: REF BY DOC,CHF ED Provider: Ryanne Ramos Discharge Problem: Pulmonary edema, Acute hyponatremia Patient Disposition: Admitted As Inpatient Discharge Instructions Interventions: ED Discharge Assessment Last Done: 11/29/22 23:59 Pulmonary edema Qualifiers: Chronicity: acute Qualified Code(s): J81.0 - Acute pulmonary edema
[2022-11-29 16:29] LABS: Albumin Globulin Ratio 1.3 (0.9-2); Albumin Level 4.1 gm/dl (3.4-5.0); BUN Creatinine Ratio 25.6 (10-20); Bilirubin,Total 1.3 mg/dl (0.2-1.0); Calcium 8.8 mg/dl (8.6-10.3); Creatinine Clr Calc Pharmacy 78.1 ml/min; Est GFR (African American) 91.6 ml/min; Est GFR (Non-African American) 79.1 ml/min; Globulin 3.2 gm/dl (2.5-4.0); Potassium 4.6 mmol/L (3.5-5.1); Total Protein 7.3 gm/dl (6.0-8.3)
[2022-11-29 16:33] LABS: INR 5.4 (0.9-1.1); Partial Thromboplastin Ratio 1.3; Partial Thromboplastin Time 36.7 Seconds (21.0-31.0); Prothrombin Time 52.9 Seconds (9.0-12.0)
[2022-11-29 16:36] LABS: Troponin I High Sensitivity 19.6 pg/ml (0-20)
[2022-11-29] MEDS ORDERED: FUROSEMIDE 40 MG/4 ML VIAL IV ONE (17:40)
--- NOTE | 2022-11-29 18:05 | History & Physical Report ---
Date of Service November 29, 2022 Assessment & Plan (1) Acute on chronic heart failure with preserved ejection fraction (HFpEF): (2) Chronic hyponatremia: (3) SIADH (syndrome of inappropriate ADH production): (4) Supratherapeutic INR: (5) Diabetes mellitus type 2 with complications: Plan This is an 87-year-old male with significant past medical history of CAD, history of CABG x 3 in 2013, mild to moderate aortic stenosis, HTN, HLD, PAF anticoagulated on warfarin, SIADH with chronic hyponatremia, T2DM, hypothyroidism, GERD, Dementia, BPH, hx of lumbar spinal stenosis s/p fusion who presents ED secondary to ALLEN x1 week. Pt has been off lasix for ~ 3months due to lower blood pressure. His imdur was also cut in 07/12. Over past week noticed increased ALLEN, orthopnea, edema and abd bloating. He does not monitor weight. Pt with chronic hyponatremia of 20+yrs due to SIADH and he does not restrict fluid as directed, feels fluid intake is at his baseline. Pt now presenting with decompensated CHF and a/c hyponatremia. Acute on Chronic HFpEF Dyspnea on Exertion CAD w/ hx of CABG x 3 Mild to mod aortic stenosis admit to PCU pt given 40mg IV lasix in ED, will monitor response and bmp in a.m. prior to additional dosing given sodium levels strict I and O daily weight consult cardiology recent echo 07/2022 showed preserved EF with mild/mod pt currently in afib Pt on asa, plavix, statin, metoprolol, imdur Pt currently on triple therapy with asa, plavix and warfarin Chronic hyponatremia SIADH, worsened with decomp CHF acutely worsened follows Dr. Winter, goal is > 128 at baseline, has been ~130s pt given lasix in ED, suspect Na will rise FR to 1500ml consult nephro bmp @ 2200 and a.m. PAF Supratherapeutic INR continue metoprolol hold warfarin, no bleeding, daily INRS ? if pt would be candidate for NOAC, will defer to cards T2DM a1c 6.1 in 08/2022 update a1c in a.m hold metformin, novolog per protocol Dementia mood stable DVT ppx: warfarin on hold Dispo: PCU FULL CODE PCP: Taylor Pt was seen and examined in collaboration with Dr. Turner, please see addendum History of Present Illness Chief Complaint: ALLEN x 1 week Primary Care Provider: Angelo Vazquez MD This is an 87-year-old male with significant past medical history of CAD, history of CABG x 3 in 2013, mild to moderate aortic stenosis, HTN, HLD, PAF anticoagulated on warfarin, SIADH with chronic hyponatremia, T2DM, hypothyroidism, GERD, Dementia, BPH, hx of lumbar spinal stenosis s/p fusion who presents ED secondary to ALLEN x1 week. He was seen and evaluated in clinic today by PCP due to worsening symptoms and was referred to ED for further evaluation.Of significance patient has history of SIADH with chronic hyponatremia for at least 20 years. He follows nephrology for this. Per recent nephrology notes appears patient is noncompliant with fluid restriction and therefore goal sodium level was above 128. Given all of his cardiac concerns he also follows with cardiology in relation to his CAD, aortic stenosis and atrial fibrillation. He did have an echocardiogram July 19, 2022 which revealed normal EF of 56%, mild to moderate aortic stenosis, mild aortic root enlargement at 4 cm and proximal ascending thoracic aorta mildly enlarged at four-point centimeters but were stable. He follows routinely with cardiology and nephrology. He has hx of T2DM treated with metformin with his last a1c being 6.1 in August. and son are at bedside. Patient states he had worsening shortness of breath for the past week. at bedside states even minimal exertion at home caused him to be significantly short of breath. Also complains of worsened abdominal distention and close not fitting. He does not monitor his weight at home so therefore unsure of weight gain. He complains of orthopnea and mild increase in swelling of his lower extremities. He has been taking his medications as prescribed. His Lasix has been since discontinued approximately 3 months ago due to lower blood pressure. His appetite is normal. He does not follow fluid restriction. Recently saw nephrology about a week ago. He denies any recent illness, fever, chills, sweats, lightheadedness, dizziness, syncope, chest pain, shortness breath at rest, nausea, vomiting, abdominal pain. He has frequent nocturia due to BPH. In ED patient received 40 mg of IV Lasix. Allergies Allergy/AdvReac Type Severity Reaction Status Date / Time bee venom protein (honey bee) Allergy Unknown swelling Verified 05/31/21 17:06 iodine Allergy Unknown DUE TO Verified 05/31/21 17:06 SHELLFISH ALLERGY-IODINATED DYE-UNKNOWN morphine Allergy Unknown stopped Verified 05/31/21 17:06 breathing Penicillins Allergy Unknown RASH Verified 05/31/21 17:06 shellfish derived Allergy Unknown ANAPHYLAXIS Verified 05/31/21 17:06 Home Medications Medication Instructions Recorded Confirmed Type aspirin 81 mg tablet,delayed 81 mg PO QA 07/21/19 11/29/22 History release atorvastatin 80 mg tablet 80 mg PO HS 07/21/19 11/29/22 History clopidogrel 75 mg tablet 75 mg PO QAM 07/21/19 11/29/22 History isosorbide mononitrate 30 mg 15 mg PO QA 07/21/19 11/29/22 History tablet,extended release 24 hr metformin 500 mg tablet 500 mg PO QA 07/21/19 11/29/22 History pantoprazole 40 mg tablet,delayed 40 mg PO QA 07/21/19 11/29/22 History release warfarin 5 mg tablet 2.5 mg PO SUTUTHSA@1600 07/21/19 11/29/22 History warfarin 5 mg tablet 5 mg PO MOWEFR@1600 07/21/19 11/29/22 History escitalopram oxalate 5 mg tablet 5 mg PO QA 05/31/21 11/29/22 History nitroglycerin 0.4 mg sublingual 0.4 mg sublingual Q5M PRN Chest 05/31/21 11/29/22 History tablet Pain finasteride 5 mg tablet 5 mg PO QA 11/29/22 11/29/22 History iron,carbonyl 65 mg-vitamin C 125 1 tab PO QA 11/29/22 11/29/22 History mg tablet,delayed release (Vitron-C) levothyroxine 50 mcg tablet 50 mcg PO DAILYBB 11/29/22 11/29/22 History metoprolol succinate 25 mg 25 mg PO DAILY 11/29/22 11/29/22 History tablet,extended release 24 hr sodium chloride 1 gram tablet 500 mg PO AMHS 11/29/22 11/29/22 History Past Med/Surg History Medical History Chronic hyponatremia Coronary artery disease Diabetes mellitus type 2 with complications Dyslipidemia Hypertension Lumbar stenosis Paroxysmal atrial fibrillation Surgical History History of carpal tunnel surgery "bilateral" 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; [facility]" S/P total hip arthroplasty S/P total knee arthroplasty Family History Father Coronary heart disease Social History Smoking Status: Never smoker Second Hand Exposure: No; Do You Dip or Chew Tobacco: No; Hx Alcohol Use: No Hx Substance Use: No Preferred Language: Palauan Communication Ability: Effective Money Position Officer Required: No Beliefs That Will Affect Care: None marital status: Current Living Situation: Spouse current occupational status: retired Other Information That Helps Us Care for You: No Feels Safe at Home: Yes Safety Concerns: Feels Safe At This Time Assistive Devices: None Review of Systems Review of Systems: All systems reviewed & are unremarkable except as noted in HPI & below Physical Exam Physical Exam: Constitutional: WD/WN, vitals as above, NAD, sitting up in bed, pleasant, conversing easily Head: Normocephalic, Atraumatic Eyes: PERRL, conjunctivae normal, anicteric sclerae ENMT: external ear and nose normal, oropharynx normal Neck: trachea midline, no thyromegaly normal visual inspection Respiratory: normal respiratory effort, lungs clear to auscultation, no wheeze, rales, rhonchi. Normal insp/exp effort, no accessory muscle use Cardiovascular: IRR/IRR, 2/6 NELI noted RUSB, trace b/l lower ext edema Vessels: no JVD or carotid bruit Chest: normal inspection of chest Abdomen: normal bowel sounds, soft, but distended abd, nontender, no hepatosplenomegaly Musculoskeletal: no cyanosis or clubbing, extremities motor strength 5/5 Skin: no rashes, warm and dry normal turgor Neurologic: PERRL, EOMI, accommodation nl, no face palsy, no dysarthria CN's II-XI intact bilaterally and moves all extremities Psychiatric: A+Ox3 to basics, euthymic affect Lymphatic: no cervical or axillary lymphadenopathy : deferred Results & Data Results & Data Vital Signs (Past 12 Hours) Vital Signs Temp Pulse Pulse Resp BP BP Pulse Ox 11/29/22 16:23 83 26 H 166/104 H 95 11/29/22 16:12 90 11/29/22 12:58 36.3 C L 81 18 151/97 H 98 O2 Del Method 11/29/22 16:23 Room Air 11/29/22 16:12 11/29/22 12:58 Diagnostic Findings Chest X-Ray 11/29/22 13:01 XR chest 1V not portable CLINICAL HISTORY: Chest pain, nonspecific COMPARISON STUDY: Chest radiograph May 31, 2021. FINDINGS: There are median sternotomy wires. Mediastinal surgical clips are present. Moderate cardiomegaly is noted. There is no pneumothorax. Suspected trace bilateral pleural effusions are present. Interstitial thickening is noted. IMPRESSION: 1. Interstitial thickening which favors pulmonary edema. An infectious process or interstitial lung disease are within the differential but considered less likely. Radiographic follow-up is recommended. 2. Trace bilateral pleural effusions. ACT 112: Negative or not required by law. Electronically signed by: Sunday Jeffries M.D. 11/29/2022 1:48 PM Medications Administered Lasix 40 mg IV ordered but not yet administered at time of evaluation ECG Rate (beats per minute): 83 Additional Comments: Probable accelerated junctional rhythm, poor R wave progression, T wave abnormality consider inferior ischemia, QTc 481 ms COVID-19 Results Results COVID-19 Adm Lab Results: RBC 4.70 M/uL (4.70-6.10) 11/30/22 WBC 6.32 K/ul (4.8-10.8) 11/30/22 Hgb 12.7 g/dl (14.0-18.0) L 11/30/22 Hct 38.2 % (42.0-52.0) L 11/30/22 Plt Count 142 K/uL (130-400) 11/30/22 Neutrophils (%) (Auto) 57.2 % 11/30/22 Lymphocytes (%) (Auto) 25.0 % 11/30/22 Monocytes # (Auto) 0.84 K/uL (0.11-0.59) H 11/30/22 Eosinophils # (Auto) 0.23 K/uL (0-0.50) 11/30/22 Immature Granulocyte % (Auto) 0.3 % 11/30/22 Neutrophils # (Auto) 3.61 K/uL (1.40-6.50) 11/30/22 Lymphocytes # (Auto) 1.58 K/uL (1.2-3.4) 11/30/22 Monocytes # (Auto) 0.84 K/uL (0.11-0.59) H 11/30/22 Eosinophils # (Auto) 0.23 K/uL (0-0.50) 11/30/22 Basophils # (Auto) 0.04 K/uL (0-0.2) 11/30/22 Immature Granulocyte # (Auto) 0.02 K/uL (0.01-0.20) 3 Na 126 mmol/L (136-145) L 11/30/22 K 4.6 mmol/L (3.5-5.1) 11/30/22 Cl 91 mmol/L (98-107) L 11/30/22 CO2 27 mmol/L (21-32) 11/30/22 Anion Gap 8 (3-11) 11/30/22 BUN 21 mg/dl (6-23) 11/30/22 Creatinine 0.90 mg/dl (0.6-1.4) 11/30/22 BUN/Creatinine Ratio 23.3 (10-20) H 11/30/22 Glucose Level 113 mg/dl (70-99(Fasting)) H 11/30/22 Ca 9.2 mg/dl (8.6-10.3) 11/30/22 Total Bilirubin 1.7 mg/dl (0.2-1.0) H 11/30/22 AST/SGOT 47 U/L (13-39) H 11/30/22 ALT/SGPT 30 U/L (7-52) 11/30/22 Alkaline Phosphatase 65 U/L (34-104) 11/30/22 Total Protein 7.1 gm/dl (6.0-8.3) 11/30/22 Albumin 4.0 gm/dl (3.4-5.0) 11/30/22 Globulin 3.1 gm/dl (2.5-4.0) 11/30/22 Albumin/Globulin Ratio 1.3 (0.9-2) 11/30/22 PTT 36.7 Seconds (21.0-31.0) H 11/29/22 INR 5.7 (0.9-1.1) H* 11/30/22 SARS-CoV-2, RNA, NAAT NEGATIVE (NEGATIVE) 11/29/22 Chest X-Ray 11/29/22 Code Status & VTE Plan Code Status FULL CODE VTE Prophylaxis Plan VTE Prophylaxis will be ordered: No Reason for no VTE drug order: Treatment not indicated Supervising Physician Co-Signing Physician Notes Patient was seen and examined independently. Chart reviewed. Case discussed with GABRIELA. Here with decompensated CHF, from non compliance with fluid restriction and not taking lasix. Received lasix 40mg IV once in ER, will observe overnight for clinical response and repeat BMP in morning. Additional IV lasix as needed to avoid over correction of acute on chronic hyponatremia.
[2022-11-29] MEDS ORDERED: DEXTROSE 50% 50 ML SYRINGE IV PRN (21:51)
[2022-11-29] MEDS ORDERED: GLUCOSE 40% GEL 15 GM TUBE PO PRN (21:51)
[2022-11-29] MEDS ORDERED: ALUMINUM/MAGNESIUM SUSP 30 ML UDC PO PRN (21:51)
[2022-11-29] MEDS ORDERED: MAGNESIUM HYDROXIDE SUSP 30 ML UDC PO PRN (21:51)
[2022-11-29] MEDS ORDERED: PROMETHAZINE HCL 6.25 MG in SODIUM CHLORIDE 0.9% 50 ML IV PRN (21:51)
[2022-11-29] MEDS ORDERED: ACETAMINOPHEN 325 MG TAB PO PRN (21:51)
[2022-11-29] MEDS ORDERED: GLUCOSE 10 TAB/TUBE PO PRN (21:51)
[2022-11-29] MEDS ORDERED: GLUCAGON FOR INJ 1 MG VIAL SQ PRN (21:51)
[2022-11-29] MEDS ORDERED: POLYETHYLENE (MIRALAX) 17 GM PACK PO PRN (21:51)
[2022-11-29] MEDS ORDERED: CARBOHYDRATES FOR HYPOGLYCEMIA PO PRN (21:51)
[2022-11-29] MEDS: INSULIN ASPART PER UNIT CHARGE SC SCH (23:23)
[2022-11-29 23:25] LABS: BUN Creatinine Ratio 25.9 (10-20); Calcium 8.5 mg/dl (8.6-10.3); Est GFR (African American) 92.1 ml/min; Est GFR (Non-African American) 79.5 ml/min; Potassium 3.8 mmol/L (3.5-5.1)
[2022-11-30] MEDS: ATORVASTATIN 40 MG TAB PO SCH ×2 (01:13→21:54)
[2022-11-30] MEDS: SODIUM CHLORIDE 1 GM TABLET PO SCH ×2 (01:13→08:26)
[2022-11-30] MEDS: LEVOTHYROXINE SODIUM 50 MCG TABLET PO SCH (05:39)
[2022-11-30 06:50] LABS: Basophils # (auto) 0.04 K/uL (0-0.2); Basophils % (auto) 0.6 %; Eosinophils # (auto) 0.23 K/uL (0-0.50); Eosinophils % (auto) 3.6 %; Hematocrit (blood only) 38.2 % (42.0-52.0); Hemoglobin 12.7 g/dl (14.0-18.0); Immature Granulocytes # (auto) 0.02 K/uL (0.01-0.20); Immature Granulocytes % (auto) 0.3 %; Lymphocytes # (auto) 1.58 K/uL (1.2-3.4); Mean Corpuscular Hgb Conc 33.2 g/dL (32.0-36.0); Mean Corpuscular Volume 81.3 fL (80.0-100.0); Mean Platelet Volume 9.8 fL (9.4-12.4); Monocytes # (auto) 0.84 K/uL (0.11-0.59); Monocytes % (auto) 13.3 %; Neutrophils # (auto) 3.61 K/uL (1.40-6.50); Neutrophils % (auto) 57.2 %; Platelet Count 142 K/uL (130-400); RDW Coefficient of Variation 16.1 % (11.5-14.5); RDW Standard Deviation 48.1 fL (36.4-46.3); White Blood Count 6.32 K/ul (4.8-10.8)
[2022-11-30 07:04] LABS: Prothrombin Time 55.6 Seconds (9.0-12.0)
[2022-11-30 07:14] LABS: Albumin Globulin Ratio 1.3 (0.9-2); BUN Creatinine Ratio 23.3 (10-20); Bilirubin,Total 1.7 mg/dl (0.2-1.0); Calcium 9.2 mg/dl (8.6-10.3); Creatinine Clr Calc Pharmacy 74.9 ml/min; Est GFR (African American) 89.9 ml/min; Est GFR (Non-African American) 77.6 ml/min; Globulin 3.1 gm/dl (2.5-4.0); Magnesium 1.6 mg/dl (1.7-2.4); Potassium 4.6 mmol/L (3.5-5.1); Total Protein 7.1 gm/dl (6.0-8.3)
[2022-11-30 07:16] LABS: INR 5.7 (0.9-1.1)
[2022-11-30 07:18] LABS: Estimated Average Glucose 140 mg/dl; Hemoglobin A1C 6.5 % (4.5-5.6)
[2022-11-30] MEDS ORDERED: MAGNESIUM SULFATE / D5W 1 GM/100 ML BAG IV ONE (07:45)
[2022-11-30] MEDS ORDERED: FUROSEMIDE 40 MG/4 ML VIAL IV ONE (08:00)
[2022-11-30] MEDS ORDERED: PHYTONADIONE 5 MG TAB PO STA (08:15)
[2022-11-30] MEDS: INSULIN ASPART PER UNIT CHARGE SC SCH ×4 (08:20→21:54)
[2022-11-30] MEDS: ASCORBIC ACID 500 MG TAB PO SCH (08:25)
[2022-11-30] MEDS: FERROUS SULFATE 325 MG TAB PO SCH (08:25)
[2022-11-30] MEDS: ESCITALOPRAM OXALATE 10 MG TAB PO SCH (08:25)
[2022-11-30] MEDS: FINASTERIDE 5 MG TAB PO SCH (08:26)
[2022-11-30] MEDS: METOPROLOL SUCC 25MG EXT REL TAB PO SCH (08:26)
[2022-11-30] MEDS: ISOSORBIDE MONO EXTENDED REL 30 MG TABCR PO SCH (08:26)
[2022-11-30] MEDS: PANTOprazole 40 MG TAB PO SCH (08:26)
[2022-11-30] MEDS ORDERED: ASPIRIN 81 MG ECTAB PO SCH (09:00)
[2022-11-30] MEDS ORDERED: CLOPIDOGREL BISULFATE 75 MG TAB PO SCH (09:00)
--- NOTE | 2022-11-30 09:15 | Cardiology Consultation ---
Date of Consultation November 30, 2022 Assessment & Plan (1) Acute on chronic heart failure with preserved ejection fraction (HFpEF): (2) Chronic hyponatremia: (3) SIADH (syndrome of inappropriate ADH production): (4) Aortic stenosis: (5) Coronary artery disease: (6) Supratherapeutic INR: Plan Patient is a poor historian with underlying dementia. He presented after several days of worsening SOB. Chest xray consistent with pulm congestion and hypervolemic on exam. Agree with IV furosemide 40 mg BID Monitor electrolytes and renal function. Fluid restriction and low sodium diet encouraged. Sodium levels were lower than his baseline (hx of SIADH). Likely due to hypervolemic state and excessive fluid intake. Nephrology following and appreciate assistance. Will likely need low dose furosemide resumed on discharge. This was on hold due to dizziness and low BP. INR was supratherapeutic. Coumadin on hold. May be candidate for Eliquis. Per review of chart, it appears he is also taking ASA and Plavix shelter since cath in 2018 at which time medical management would be recommended. Given advanced age, would discontinue plavix at this time. Continue ASA 81 mg daily and either resume Coumadin when INR improves vs start Eliquis. Case management consulted to assist with cost/insurance of Eliquis. -Per case management, cost of Eliquis will be $0 for 5 mg BID. Need to wait until INR < 2.0 before starting. He has mild/moderate noted per echo in Jul 2022. No need to update at this time. Initially thought to be in afib. EKG and telemetry reviewed and patient in NSR with long first degree AV block. Continue metoprolol. Case discussed with Dr. Mcpherson I spent a total of 70 minutes on the date of service in preparation, delivery, and documentation of the care provided to this patient, excluding any time spent in the performance of separately billed services. Ewelina Poole PA-C Department of Cardiology, [facility] This chart was completed in part utilizing Speech Voice Recognition Software. Grammatical errors, random word insertions, pronoun errors, and incomplete sentences are an occasional consequence of this system due to software limitations, ambient noise, and hardware issues. Any formal questions or concerns about the content, text, or information contained within the body of this dictation should be directly addressed to the provider for clarification. Supervising Physician Co-Signing Physician Notes Supervising Physician Attestation: I have personally performed a history and physical examination on the patient. I agree with the physician human resource assistant's findings and plan as documented with the following additions. Subjective: Patient states he is feeling better, but I do not think he is a reliable historian. Mild ongoing edema and bibasilar crackles noted. Exam: Pulmonary, crackles at the bases Cardiovascular regular rhythm, 1/6 systolic murmur, lower extremities-trace edema Data: EKG performed today 11/30/2020 and interpret independently: Normal sinus rhythm 82 bpm with first-degree AV block. Inferior and lateral T wave inversions relatively unchanged compared to previous tracing dated 11/27/2020 Assessment and Plan: Acute heart failure with preserved ejection fraction-continue diuretic therapy furosemide 40 mg IV twice daily -Coumadin on hold for supratherapeutic INR. -Continue aspirin. -Discontinue clopidogrel, will plan to either resume Coumadin or transition to DOAC if affordable. Marco Mcpherson, History of Present Illness Reason for Consultation: CHF Requesting Physician: Nela Clark PA-C Attending Physician: Dr. Mcpherson History of Present Illness Patient is an 87 year old male who is known to [facility] Cardiology - Dr. Middleton/Joseph for complex history includin. CAD s/p complex PCI/interventions between 1996 and 2007 including stent to the LAD and LCx in 2003, stent to RCA in 2007 and repeat stent to the LAD in 2010; Then on 05/30/14 he underwent CABG x3 (Rhodes-LAD, Ao-dRCA, Ao-OM). repeat cath in 2019 revealed patency of his RHODES-LAD, SVG-OM, and SVG-PDA grafts. There was 95% stenosis of the apical LAD corresponding to the area of abnormal perfusion, however it was a small vessel and not amendable to PCI. There was 70% stenosis of the OM1 distal to the SVG-OM graft touchdown which did not correspond to the areas of reversible ischemia on stress test. Medical management recommended. At that time Plavix was resumed in addition to his ASA. 2. Mild to moderate Aortic stenosis per echo in 07/2022 3. Paroxysmal atrial fibrillation, chronic Coumadin 4. Hypertension 5. Frequent PVC's 6. Dementia/memory loss 7. SIADH with chronic hyponatremia 8. History of syncope without arrhythmias to correlate on outpatient JENIFERO Patient was brought to ER yesterday after complaining of increased SOB over the last few weeks. Chest xray consistent with pulm vascular congestion, small pleural effusions. His oral/home dose furosemide was on hold the last few month s due to low BP and dizziness. He follows with nephrology for SIADH but does not follow fluid restriction. At time of consult, patient is by himself. Poor historian. Feels he is "fine" and wants to go home. Received dose of IV lasix in ER and earlier today. Still has trace ankle edema and mild bibasilar rales. He denies chest pain. No dizziness or syncope/near syncope. No fever or chills. Sodium levels also were lower than his typical baseline. Nephrology is following. EKG on arrival read as junctional but it appears he has P waves and long first degree. Allergies Allergy/AdvReac Type Severity Reaction Status Date / Time bee venom protein (honey bee) Allergy Unknown swelling Verified 05/31/21 17:06 iodine Allergy Unknown DUE TO Verified 05/31/21 17:06 SHELLFISH ALLERGY-IODINATED DYE-UNKNOWN morphine Allergy Unknown stopped Verified 05/31/21 17:06 breathing Penicillins Allergy Unknown RASH Verified 05/31/21 17:06 shellfish derived Allergy Unknown ANAPHYLAXIS Verified 05/31/21 17:06 Home Medications Medication Instructions Recorded Confirmed Type aspirin 81 mg tablet,delayed 81 mg PO QA 07/21/19 11/29/22 History release atorvastatin 80 mg tablet 80 mg PO HS 07/21/19 11/29/22 History clopidogrel 75 mg tablet 75 mg PO QAM 07/21/19 11/29/22 History isosorbide mononitrate 30 mg 15 mg PO QAM 07/21/19 11/29/22 History tablet,extended release 24 hr metformin 500 mg tablet 500 mg PO QAM 07/21/19 11/29/22 History pantoprazole 40 mg tablet,delayed 40 mg PO QAM 07/21/19 11/29/22 History release warfarin 5 mg tablet 2.5 mg PO SUTUTHSA@1600 07/21/19 11/29/22 History warfarin 5 mg tablet 5 mg PO MOWEFR@1600 07/21/19 11/29/22 History escitalopram oxalate 5 mg tablet 5 mg PO QA 05/31/21 11/29/22 History nitroglycerin 0.4 mg sublingual 0.4 mg sublingual Q5M PRN Chest 05/31/21 11/29/22 History tablet Pain finasteride 5 mg tablet 5 mg PO QAM 11/29/22 11/29/22 History iron,carbonyl 65 mg-vitamin C 125 1 tab PO QAM 11/29/22 11/29/22 History mg tablet,delayed release (Vitron-C) levothyroxine 50 mcg tablet 50 mcg PO DAILYBB 11/29/22 11/29/22 History metoprolol succinate 25 mg 25 mg PO DAILY 11/29/22 11/29/22 History tablet,extended release 24 hr sodium chloride 1 gram tablet 500 mg PO AMHS 11/29/22 11/29/22 History Patient History Medical History Chronic hyponatremia Coronary artery disease Diabetes mellitus type 2 with complications Dyslipidemia Hypertension Lumbar stenosis Paroxysmal atrial fibrillation Surgical History History of carpal tunnel surgery "bilateral" 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; [place]" S/P total hip arthroplasty S/P total knee arthroplasty Family History Father Coronary heart disease Social History Smoking Status: Never smoker Second Hand Exposure: No; Do You Dip or Chew Tobacco: No; Hx Alcohol Use: No Hx Substance Use: No Preferred Language: Spanish Communication Ability: Effective 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 Beliefs That Will Affect Care: None marital status: Current Living Situation: Spouse current occupational status: retired Other Information That Helps Us Care for You: No Feels Safe at Home: Yes Safety Concerns: Feels Safe At This Time Assistive Devices: None Review of Systems Review of Systems: All systems reviewed & are unremarkable except as noted in HPI & below Physical Exam Constitutional: WD/WN, vitals as above average body habitus; no acute distress Respiratory: no labored breathing Auscultation: + diminished lung sounds and + crackles Cardiovascular: Rate/Rhythm: regular rate and regular rhythm Heart Sounds: + murmur (II/ systolic murmur LSB) Extremities: + edema (1+ ankle and pretibial edema) Gastrointestinal (Abdomen): normal bowel sounds, soft, nontender, no hepatosplenomegaly Neurologic: PERRL, EOMI, accommodation nl, no face palsy, no dysarthria Psychiatric: Orientation: oriented to person and oriented to place Insight: + limited insight Results & Data Vital Signs (Past 12 Hours) Vital Signs Temp Pulse Pulse Resp BP BP Pulse Ox 11/30/22 07:00 36.3 C L 84 18 166/94 H 98 11/30/22 03:39 36.3 C L 51 L 18 139/96 97 11/30/22 00:10 93 H 11/30/22 00:10 11/29/22 23:50 36.7 C 88 18 151/95 H 99 11/29/22 23:11 86 18 157/100 H 98 11/29/22 22:59 99 H 11/29/22 22:00 90 15 99 11/29/22 21:30 87 18 98 O2 Del Method 11/30/22 07:00 Room Air 11/30/22 03:39 Room Air 11/30/22 00:10 11/30/22 00:10 Room Air 11/29/22 23:50 Room Air 11/29/22 23:11 Room Air 11/29/22 22:59 11/29/22 22:00 11/29/22 21:30 Laboratory Results Cardiac Enzymes 11/29/22 11/30/22 Range/Units 15:44 06:13 AST 44 H 47 H (13-39) U/L Troponin I High Sens 19.6 (0-20) pg/ml Coagulation 11/29/22 11/30/22 Range/Units 15:44 06:13 PT 52.9 H 55.6 H (9.0-12.0) Seconds APTT 36.7 H (21.0-31.0) Seconds CBC 11/29/22 11/30/22 Range/Units 15:44 06:13 WBC 5.90 6.32 (4.8-10.8) K/ul RBC 4.53 L 4.70 (4.70-6.10) M/uL Hgb 12.4 L 12.7 L (14.0-18.0) g/dl Hct 37.2 L 38.2 L (42.0-52.0) % Plt Count 129 L 142 (130-400) K/uL Neut # (Auto) 3.89 3.61 (1.40-6.50) K/uL Lymph # (Auto) 1.13 L 1.58 (1.2-3.4) K/uL [place] # (Auto) 0.67 H 0.84 H (0.11-0.59) K/uL Eos # (Auto) 0.15 0.23 (0-0.50) K/uL Baso # (Auto) 0.04 0.04 (0-0.2) K/uL Comprehensive Metabolic Panel 11/29/22 11/29/22 11/30/22 Range/Units 15:44 22:40 06:13 Sodium 124 L 125 L 126 L (136-145) mmol/L Potassium 4.6 3.8 4.6 D (3.5-5.1) mmol/L Chloride 91 L 92 L 91 L (98-107) mmol/L Carbon Dioxide 24 21 27 (21-32) mmol/L BUN 22 22 21 (6-23) mg/dl Creatinine 0.86 0.85 0.90 (0.6-1.4) mg/dl Glucose 119 H 112 H 113 H (70-99(Fasting)) mg/dl Calcium 8.8 8.5 L 9.2 (8.6-10.3) mg/dl AST 44 H 47 H (13-39) U/L ALT 28 30 (7-52) U/L Alkaline Phosphatase 69 65 (34-104) U/L Total Protein 7.3 7.1 (6.0-8.3) gm/dl Albumin 4.1 4.0 (3.4-5.0) gm/dl Intake and Output 11/29/22 11/30/22 11/30/22 22:59 06:59 14:59 Intake Total 200 / 200 Output Total 500 / 800 300 / 800 Balance -500 / -600 -100 / -600 Intake: Oral 200 / 200 Output: Urine 500 / 800 300 / 800 Other: # Unmeasured Voids 1 Weight 100.8 kg 100.8 kg Weight Measurement Method Standing Scale Patient Weight 12/01/22 06:59 Weight 100.8 kg Diagnostic Findings Telemetry reviewed: Sinus with long first degree AV block. Occ PVC's EKG on admission, 11/29: Sinus with long first degree AV block vs junctional rhythm Inverted T waves in lateral leads, similar to past findings Chest X-Ray 11/29/22 13:01 XR chest 1V not portable CLINICAL HISTORY: Chest pain, nonspecific COMPARISON STUDY: Chest radiograph May 31, 2021. FINDINGS: There are median sternotomy wires. Mediastinal surgical clips are present. Moderate cardiomegaly is noted. There is no pneumothorax. Suspected trace bilateral pleural effusions are present. Interstitial thickening is noted. IMPRESSION: 1. Interstitial thickening which favors pulmonary edema. An infectious process or interstitial lung disease are within the differential but considered less likely. Radiographic follow-up is recommended. 2. Trace bilateral pleural effusions. ACT 112: Negative or not required by law. Electronically signed by: Sunday Jeffries M.D. 11/29/2022 1:48 PM Echocardiogram report reviewed dated Jul 2022: Interpretation Summary The examination is adequate to evaluate the referral indication. The LV wall thickness is mildly increased (concentric). The left ventricular wall motion is normal. Calculated LV ejection Fraction = 56% (three dimensional volumes). The left atrium is severely enlarged. The right atrium is mildly enlarged. The left ventricular diastolic function is moderately abnormal (grade II). Mild to moderate aortic stenosis is present. Trace aortic regurgitation is present. Mild mitral regurgitation is present. Mild tricuspid regurgitation is present. The aortic root is mildly enlarged, 4 cm. The proximal ascending thoracic aorta is mildly enlarged, 4.1 cm. Compared to the report of the prior study dated 05/26/2021, the proximal ascending aorta diameter is relatively stable without significant interval change. The severity of the aortic stenosis has progressed, mild to moderate aortic stenosis is now present as compared to mild aortic stenosis. Medications Administered Current Inpatient Medications Acetaminophen (Acetaminophen 325 Mg Tab) 650 mg PO Q4H PRN PRN Reason: Pain or Fever Stop: 12/29/22 21:50 Al Hydrox/Mg Hydrox/Simethicone (Aluminum/Magnesium Susp 30 Ml Udc) 15 ml PO Q4H PRN PRN Reason: Dyspepsia Stop: 12/29/22 21:50 Ascorbic Acid (Ascorbic Acid 500 Mg Tab) 250 mg PO QAM ROMEL Stop: 12/30/22 08:59 Last Admin: 11/30/22 08:25 Dose: 250 mg Aspirin (Aspirin 81 Mg Ectab) 81 mg PO [facility] Stop: 12/30/22 08:59 Atorvastatin Calcium (Atorvastatin 40 Mg Tab) 80 mg PO HS [facility] Stop: 12/29/22 21:50 Last Admin: 11/30/22 01:13 Dose: 80 mg Clopidogrel Bisulfate (Clopidogrel Bisulfate 75 Mg Tab) 75 mg PO [facility] Stop: 12/30/22 08:59 Dextrose (Dextrose 50% 50 Ml Syringe) 25 - 50 ml IV UD PRN; Protocol PRN Reason: Hypoglycemia Protocol Stop: 12/29/22 21:50 Escitalopram Oxalate (Escitalopram Oxalate 10 Mg Tab) 5 mg PO [facility] Stop: 12/30/22 08:59 Last Admin: 11/30/22 08:25 Dose: 5 mg Ferrous Sulfate (Ferrous Sulfate 325 Mg Tab) 325 mg PO [facility] Stop: 12/30/22 08:59 Last Admin: 11/30/22 08:25 Dose: 325 mg Finasteride (Finasteride 5 Mg Tab) 5 mg PO [facility] Stop: 12/30/22 08:59 Last Admin: 11/30/22 08:26 Dose: 5 mg Glucagon (Glucagon For Inj 1 Mg Vial) 1 mg SQ UD PRN; Protocol PRN Reason: Hypoglycemia Protocol Stop: 12/29/22 21:50 Glucose (Glucose 10 Tab/Tube) 4 - 8 tab PO UD PRN; Protocol PRN Reason: Hypoglycemia Treatment Stop: 12/29/22 21:50 Glucose (Glucose 40% Gel 15 Gm Tube) 15 - 30 gm PO UD PRN; Protocol PRN Reason: Hypoglycemia Protocol Stop: 12/29/22 21:50 Promethazine HCl 6.25 mg/ (Sodium Chloride) 50.25 mls @ 201 mls/hr IV Q6H PRN PRN Reason: Nausea And Vomiting Stop: 12/29/22 21:50 Magnesium Sulfate/Dextrose (Magnesium Sulfate / D5w) 1 gm in 100 mls @ 50 mls/hr IV ONE ONE Stop: 11/30/22 09:44 Last Admin: 11/30/22 08:22 Dose: 50 mls/hr Insulin Aspart (Insulin Aspart Per Unit Charge) 0 units [facility] Stop: 12/29/22 21:50 Last Admin: 11/30/22 08:20 Dose: Not Given Isosorbide Mononitrate (Isosorbide [place] Extended Rel 30 Mg Tabcr) 15 mg PO QAM [facility] Stop: 12/30/22 08:59 Last Admin: 11/30/22 08:26 Dose: 15 mg Levothyroxine Sodium (Levothyroxine Sodium 50 Mcg Tablet) 50 mcg PO DAILYBB [facility] Stop: 12/30/22 06:29 Last Admin: 11/30/22 05:39 Dose: 50 mcg Magnesium Hydroxide (Magnesium Hydroxide Susp 30 Ml Udc) 30 ml PO Q12H PRN PRN Reason: Constipation Stop: 12/29/22 21:50 Metoprolol Succinate (Metoprolol Succ 25mg Ext Rel Tab) 25 mg PO DAILY [facility] Stop: 12/30/22 08:59 Last Admin: 11/30/22 08:26 Dose: 25 mg Miscellaneous (Carbohydrates For Hypoglycemia ) 15 - 30 gm PO UD PRN PRN Reason: Hypoglycemia Protocol Stop: 12/29/22 21:50 Pantoprazole Sodium (Pantoprazole 40 Mg Tab) 40 mg PO QAM [facility] Stop: 12/30/22 08:59 Last Admin: 11/30/22 08:26 Dose: 40 mg Polyethylene Glycol (Polyethylene (Miralax) 17 Gm Pack) 17 gm PO DAILY PRN PRN Reason: Constipation Stop: 12/29/22 21:50 Sodium Chloride (Sodium Chloride 1 Gm Tablet) 0.5 gm PO AMHS [facility] Stop: 12/29/22 21:50 Last Admin: 11/30/22 08:26 Dose: 0.5 gm
--- NOTE | 2022-11-30 11:56 | Hospitalist Progress Note ---
Date of Service November 30, 2022 Assessment & Plan (1) Acute on chronic heart failure with preserved ejection fraction (HFpEF): (2) Chronic hyponatremia: (3) SIADH (syndrome of inappropriate ADH production): (4) Supratherapeutic INR: (5) Diabetes mellitus type 2 with complications: Plan This is an 87-year-old male with significant past medical history of CAD, history of CABG x 3 in 2013, mild to moderate aortic stenosis, HTN, HLD, PAF anticoagulated on warfarin, SIADH with chronic hyponatremia, T2DM, hypothyroidism, GERD, Dementia, BPH, hx of lumbar spinal stenosis s/p fusion who presents ED secondary to ALLEN x1 week. Pt has been off lasix for ~ 3months due to lower blood pressure. His imdur was also cut in 07/12. Over past week noticed increased ALLEN, orthopnea, edema and abd bloating. He does not monitor weight. Pt with chronic hyponatremia of 20+yrs due to SIADH and he does not restrict fluid as directed, feels fluid intake is at his baseline. Pt now presenting with decompensated CHF and a/c hyponatremia. Acute on Chronic HFpEF Dyspnea on Exertion CAD w/ hx of CABG x 3 Mild to mod aortic stenosis admit to PCU pt given 40mg IV lasix in ED Na 126 this a.m, will give additional 40mg IV lasix x1 now and monitor response strict I and O daily weight consult cardiology recent echo 07/2022 showed preserved EF with mild/mod Pt on asa, plavix, statin, metoprolol, imdur Pt currently on triple therapy with asa, plavix and warfarin Per Dr. Lamas - will hold asa, plavix today, re assess in a.m. and resume, pt high bleed risk given triple therapy appreciate cardiology recommendations in regards to pt triple therapy: ok to d/c plavix. Continue with asa and warfarin. When INR < 2 can consider Eliquis due to labile INRS Chronic hyponatremia SIADH, worsened with decomp CHF acutely worsened follows Dr. Winter, goal is > 128 at baseline, has been ~130s pt given lasix in ED, suspect Na will rise FR to 1500ml consult nephro Na trending up to 126, will repeat bmp @ 1430 PAF Supratherapeutic INR continue metoprolol hold warfarin, no bleeding, daily INRS INR 5.7 today, give Vit K 5mg oral ? if pt would be candidate for NOAC, will defer to cards Hypomagnesemia mag sulfate 1g given will start on mag oxide 400mg bid T2DM a1c 6.5 today hold metformin, novolog per protocol Dementia mood stable DVT ppx: warfarin on hold Dispo: PCU FULL CODE PCP: Taylor Pt was seen and examined in collaboration with Dr. Lamas, please see addendum Admission and Anticipated Discharge Date Admission Date: November 29, 2022 Supervising Physician Co-Signing Physician Notes Attending Addendum: care coordinated with GABRIELA Nela Clark's notes please refer to her notes for full details, I agree with her notes patient seen and examined, records reviewed by myself as well on exam, patient seen resting in bed, comfortable, not in distress Reports breathing is improving No chest pain, dizziness, nausea vomiting No bleeding diagnoses and plan of care as per GABRIELA Nela Clark's notes Mahin Lamas MD Subjective Patient was seen and examined in room 241. Follow-up worsening of hyponatremia and acute on chronic CHF. Patient states he wishes to go home. He is very hard of hearing. He feels shortness of breath is slightly improved. He denies chest pain, nausea, vomiting, diarrhea and is tolerating diet. Review of Systems Review of Systems: All systems reviewed & are unremarkable except as noted in HPI & below Physical Exam Physical Exam: Gen: WD/WN, NAD, A&O x3 HEENT: Normocephalic, atraumatic, conjunctivae moist, sclerae anicteric, mucous membranes moist. Lung: Clear to Auscultation bilaterally, no wheezes/rales/rhonchi Heart: Regular rate, regular rhythm, 2/6 NELI noted RUSB, no rubs, or gallops Abdomen: Soft, NT, ND +BS x 4 Extremities: No edema Skin: Warm, no rash, negative turgor. Results & Data Results & Data Vital Signs (Past 12 Hours) Vital Signs Temp Pulse Pulse Resp BP BP Pulse Ox 11/30/22 11:24 36.5 C 76 18 165/93 H 97 11/30/22 08:00 11/30/22 07:00 36.3 C L 84 18 166/94 H 98 11/30/22 03:39 36.3 C L 51 L 18 139/96 97 11/30/22 00:10 93 H 11/30/22 00:10 11/29/22 23:50 36.7 C 88 18 151/95 H 99 O2 Del Method 11/30/22 11:24 Room Air 11/30/22 08:00 Room Air 11/30/22 07:00 Room Air 11/30/22 03:39 Room Air 11/30/22 00:10 11/30/22 00:10 Room Air 11/29/22 23:50 Room Air Laboratory Results Short CBC 11/29/22 11/30/22 Range/Units 15:44 06:13 WBC 5.90 6.32 (4.8-10.8) K/ul Hgb 12.4 L 12.7 L (14.0-18.0) g/dl Hct 37.2 L 38.2 L (42.0-52.0) % Plt Count 129 L 142 (130-400) K/uL BMP 11/29/22 11/29/22 11/30/22 15:44 22:40 06:13 Sodium 124 L 125 L 126 L Potassium 4.6 3.8 4.6 D Chloride 91 L 92 L 91 L Carbon Dioxide 24 21 27 BUN 22 22 21 Creatinine 0.86 0.85 0.90 Glucose 119 H 112 H 113 H Calcium 8.8 8.5 L 9.2 Liver Function 11/29/22 11/30/22 Range/Units 15:44 06:13 Total Bilirubin 1.3 H 1.7 H (0.2-1.0) mg/dl AST 44 H 47 H (13-39) U/L ALT 28 30 (7-52) U/L Alkaline Phosphatase 69 65 (34-104) U/L Albumin 4.1 4.0 (3.4-5.0) gm/dl Medications Administered Current Inpatient Medications Acetaminophen (Acetaminophen 325 Mg Tab) 650 mg PO Q4H PRN PRN Reason: Pain or Fever Stop: 12/29/22 21:50 Al Hydrox/Mg Hydrox/Simethicone (Aluminum/Magnesium Susp 30 Ml Udc) 15 ml PO Q4H PRN PRN Reason: Dyspepsia Stop: 12/29/22 21:50 Ascorbic Acid (Ascorbic Acid 500 Mg Tab) 250 mg PO QAM ROMEL Stop: 12/30/22 08:59 Last Admin: 11/30/22 08:25 Dose: 250 mg Aspirin (Aspirin 81 Mg Ectab) [facility]: 12/30/22 08:59 Atorvastatin Calcium (Atorvastatin 40 Mg Tab) 80 mg PO HS [facility] Stop: 12/29/22 21:50 Last Admin: 11/30/22 01:13 Dose: 80 mg Dextrose (Dextrose 50% 50 Ml Syringe) 25 - 50 ml IV UD PRN; Protocol PRN Reason: Hypoglycemia Protocol Stop: 12/29/22 21:50 Escitalopram Oxalate (Escitalopram Oxalate 10 Mg Tab) [facility] Stop: 12/30/22 08:59 Last Admin: 11/30/22 08:25 Dose: 5 mg Ferrous Sulfate (Ferrous Sulfate 325 Mg Tab) 325 [facility] Stop: 12/30/22 08:59 Last Admin: 11/30/22 08:25 Dose: 325 mg Finasteride (Finasteride 5 Mg Tab) 5 mg PO [facility] Stop: 12/30/22 08:59 Last Admin: 11/30/22 08:26 Dose: 5 mg Furosemide (Furosemide 40 Mg/4 Ml Vial) 40 mg IV BID [facility] Stop: 12/30/22 20:59 Glucagon (Glucagon For Inj 1 Mg Vial) 1 mg SQ UD PRN; Protocol PRN Reason: Hypoglycemia Protocol Stop: 12/29/22 21:50 Glucose (Glucose 10 Tab/Tube) 4 - 8 tab PO UD PRN; Protocol PRN Reason: Hypoglycemia Treatment Stop: 12/29/22 21:50 Glucose (Glucose 40% Gel 15 Gm Tube) 15 - 30 gm PO UD PRN; Protocol PRN Reason: Hypoglycemia Protocol Stop: 12/29/22 21:50 Promethazine HCl 6.25 mg/ (Sodium Chloride) 50.25 mls @ 201 mls/hr IV Q6H PRN PRN Reason: Nausea And Vomiting Stop: 12/29/22 21:50 Insulin Aspart (Insulin Aspart Per Unit Charge) 0 units SC [facility] Stop: 12/29/22 21:50 Last Admin: 11/30/22 08:20 Dose: Not Given Isosorbide Mononitrate (Isosorbide [place] Extended Rel 30 Mg Tabcr) 15 [facility] Stop: 12/30/22 08:59 Last Admin: 11/30/22 08:26 Dose: 15 mg Levothyroxine Sodium (Levothyroxine Sodium 50 Mcg Tablet) 50 mcg PO DAILYBB [facility] Stop: 12/30/22 06:29 Last Admin: 11/30/22 05:39 Dose: 50 mcg Magnesium Hydroxide (Magnesium Hydroxide Susp 30 Ml Udc) 30 ml PO Q12H PRN PRN Reason: Constipation Stop: 12/29/22 21:50 Metoprolol Succinate (Metoprolol Succ 25mg Ext Rel Tab) 25 mg PO DAILY [facility] Stop: 12/30/22 08:59 Last Admin: 11/30/22 08:26 Dose: 25 mg Miscellaneous (Carbohydrates For Hypoglycemia ) 15 - 30 gm PO UD PRN PRN Reason: Hypoglycemia Protocol Stop: 12/29/22 21:50 Pantoprazole Sodium (Pantoprazole 40 Mg Tab) 40 mg PO QAM [facility] Stop: 12/30/22 08:59 Last Admin: 11/30/22 08:26 Dose: 40 mg Polyethylene Glycol (Polyethylene (Miralax) 17 Gm Pack) 17 gm PO DAILY PRN PRN Reason: Constipation Stop: 12/29/22 21:50
--- NOTE | 2022-11-30 12:04 | Electrocardiogram Report ---
Test Reason : Blood Pressure : / mmHG Vent. Rate : 082 BPM Atrial Rate : 081 BPM P-R Int : 000 ms QRS Dur : 090 ms QT Int : 432 ms P-R-T Axes : 000 092 133 degrees QTc Int : 504 ms Normal sinus rhythm with 1st degree A-V block Rightward axis Anterior infarct (cited on or before 30-NOV-2022) Prolonged QT Abnormal ECG When compared with ECG of 29-NOV-2022 14:07, No significant change was found Confirmed by Alfredo Russell [id number]) on 11/30/2022 12:03:52 PM Referred By: Angelo Vazquez Confirmed By:Alfredo Russell
--- NOTE | 2022-11-30 12:12 | Consultation Report ---
NEPHROLOGY CONSULTATION NOTE REASON FOR CONSULTATION: Hyponatremia. 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 Despite multiple efforts, he does not follow fluid restriction at all because he feels his mouth is always dry and he drinks more than 100 ounces of liquid per day , probably even more. His sodium is usually in the low 130s, but can be in the high 120s as outpatie nt. He presented to the hospital yesterday. Because of increasing dyspnea on exertion, he also has i ncreased edema. The patient also has aortic stenosis and history of congestive heart failure. Latel y, his blood pressure has been low and as a result, Lasix has been on hold and Imdur dose has been lo wered. Since being admitted, he has received Lasix 40 mg IV yesterday one dose and one dose today. Benjie ho is making very dilute urine in brisk amount and he feels his breathing is a little better. However , he is already demanding that he be discharged from the hospital within the next few hours. Blood p ressure is high at this point. ALLERGIES: List was reviewed. MEDICATIONS: Home medication list was reviewed in detail and is as per the reconciliation list. PAST MEDICAL AND SURGICAL HISTORY: Includes chronic hyponatremia secondary to SIADH, coronary artery disease, aortic stenosis, type 2 diabetes, lumbar stenosis, paroxysmal atrial fibrillation, hyperten alicia, CABG x3 in 2014, total hip arthroplasty, total knee arthroplasty. FAMILY HISTORY: Coronary artery disease. SOCIAL HISTORY: Never smoked. No alcohol. He is and lives with his spouse. No oxygen. REVIEW OF SYSTEMS: Positive for increasing dyspnea on exertion, increasing lower extremity edema, an d some degree of orthopnea. Otherwise, 12 systems reviewed and negative. PHYSICAL EXAMINATION: GENERAL: Elderly white male who is awake, alert, oriented x3. He is not in overt respiratory distre ss at this time. VITAL SIGNS: Blood pressure is 166/94, pulse rate 84, temperature 36.3, 98% on room air. HEENT: Mucous membrane is moist. NECK: Supple. No JVD. CHEST: Bilaterally clear to auscultation. CARDIOVASCULAR: S1 and S2 irregular. Soft systolic murmur heard. ABDOMEN: Soft, nontender. EXTREMITIES: Show 1+ edema. NEUROLOGIC: Awake, alert and oriented. Normal speech. Moving all 4 extremities. LABORATORY TEST: Blood work from this morning shows sodium 126, sodium was 124 on admission yesterda y, calcium 9.2, magnesium slightly low at 1.6, BUN 21, creatinine 0.9. Chest x-ray shows interstitia l thickening suggestive of pulmonary edema, trace bilateral pleural effusion. ASSESSMENT AND PLAN: An 87-year-old male with extensive cardiac problems, now admitted with pulmonar y edema and associated symptoms. I have been consulted for [id number] hyponatremia. Hyponatremia: He has had hyponatremia secondary to SIADH and excessive fluid intake for many years. Despite multiple efforts, he has not changed the fluid restriction part and even now he drinks more t jones 100 ounces of liquid per day. He always feels that he can eat more salt to counter the low sodiu m, which I have repeatedly told that is not the solution. At this point, he has pulmonary edema and he needs to be diuresed and put on fluid restriction. RECOMMENDATION: 1. Do not use salt tablet and do not discharge him on salt tablet. 2. Fluid restriction to 1500 mL per day, to be continued. 3. Lasix 40 mg IV b.i.d. He already received the dose in the morning and he is responding very well with large amount of dilute urine. 4. The patient is already demanding he be discharged to home within the next few hours, which does n ot seem reasonable. 5. At this point, BMP can be done twice daily. 6. Low magnesium, which has already been corrected. 7. As an outpatient, the only intervention he needs for hyponatremia is fluid restriction. Even if he goes from current fluid intake of 100-120 ounces to about 60 ounces per day, it should be enough t o keep his sodium relatively stable. Thank you very much for the consult. Job ID: [id number]
[2022-11-30 14:50] LABS: BUN Creatinine Ratio 23.6 (10-20); Calcium 8.6 mg/dl (8.6-10.3); Creatinine Clr Calc Pharmacy 75.8 ml/min; Est GFR (African American) 90.4 ml/min; Potassium 3.6 mmol/L (3.5-5.1)
[2022-11-30] MEDS: FUROSEMIDE 40 MG/4 ML VIAL IV SCH (17:48)
[2022-11-30] MEDS ORDERED: FUROSEMIDE 40 MG/4 ML VIAL IV SCH (21:00)
[2022-11-30] MEDS: MAGNESIUM OXIDE 400 MG TAB PO SCH (21:54)
[2022-12-01] MEDS: LEVOTHYROXINE SODIUM 50 MCG TABLET PO SCH (06:00)
[2022-12-01 06:39] LABS: Basophils # (auto) 0.03 K/uL (0-0.2); Basophils % (auto) 0.5 %; Eosinophils # (auto) 0.39 K/uL (0-0.50); Hematocrit (blood only) 35.3 % (42.0-52.0); Immature Granulocytes # (auto) 0.02 K/uL (0.01-0.20); Immature Granulocytes % (auto) 0.4 %; Lymphocytes # (auto) 0.93 K/uL (1.2-3.4); Lymphocytes % (auto) 16.6 %; Mean Corpuscular Hemoglobin 27.3 pg (25.0-34.0); Mean Corpuscular Volume 80.4 fL (80.0-100.0); Monocytes # (auto) 0.84 K/uL (0.11-0.59); Neutrophils # (auto) 3.39 K/uL (1.40-6.50); Neutrophils % (auto) 60.5 %; Platelet Count 125 K/uL (130-400); RDW Coefficient of Variation 15.9 % (11.5-14.5); RDW Standard Deviation 46.6 fL (36.4-46.3); Red Blood Count 4.39 M/uL (4.70-6.10)
[2022-12-01 06:57] LABS: Albumin Globulin Ratio 1.2 (0.9-2); Albumin Level 3.6 gm/dl (3.4-5.0); BUN Creatinine Ratio 17.5 (10-20); Bilirubin,Total 1.6 mg/dl (0.2-1.0); Calcium 8.8 mg/dl (8.6-10.3); Est GFR (African American) 82.2 ml/min; Est GFR (Non-African American) 70.9 ml/min; Globulin 2.9 gm/dl (2.5-4.0); Magnesium 1.8 mg/dl (1.7-2.4); Potassium 3.9 mmol/L (3.5-5.1); Total Protein 6.5 gm/dl (6.0-8.3)
[2022-12-01 07:27] LABS: INR 2.3 (0.9-1.1); Prothrombin Time 23.9 Seconds (9.0-12.0)
[2022-12-01] MEDS: INSULIN ASPART PER UNIT CHARGE SC SCH ×2 (08:07→12:11)
[2022-12-01] MEDS: ASCORBIC ACID 500 MG TAB PO SCH (08:11)
[2022-12-01] MEDS: METOPROLOL SUCC 25MG EXT REL TAB PO SCH (08:12)
[2022-12-01] MEDS: PANTOprazole 40 MG TAB PO SCH (08:12)
[2022-12-01] MEDS: FINASTERIDE 5 MG TAB PO SCH (08:13)
[2022-12-01] MEDS: MAGNESIUM OXIDE 400 MG TAB PO SCH (08:13)
[2022-12-01] MEDS: ISOSORBIDE MONO EXTENDED REL 30 MG TABCR PO SCH (08:13)
[2022-12-01] MEDS: FUROSEMIDE 40 MG/4 ML VIAL IV SCH (08:14)
[2022-12-01] MEDS: FERROUS SULFATE 325 MG TAB PO SCH (08:14)
[2022-12-01] MEDS: ESCITALOPRAM OXALATE 10 MG TAB PO SCH (08:14)
--- NOTE | 2022-12-01 09:45 | Nephrology Progress Note ---
Date of Service December 01, 2022 Assessment & Plan Admission and Anticipated Discharge Date Admission Date: November 29, 2022 Subjective S----Feels better. making lot of urine. Wants to go home PHYSICAL EXAMINATION: GENERAL: Elderly white male who is awake, alert, oriented x3. He is not in overt respiratory distress at this time. HEENT: Mucous membrane is moist. NECK: Supple. No JVD. CHEST: Bilaterally clear to auscultation. CARDIOVASCULAR: S1 and S2 irregular. Soft systolic murmur heard. ABDOMEN: Soft, nontender. EXTREMITIES: Show trace edema. NEUROLOGIC: Awake, alert and oriented. Normal speech. Moving all 4 extremities. LABORATORY TEST: Blood work from this morning shows sodium 126, sodium was 124 on admission yesterday, calcium 9.2, magnesium slightly low at 1.6, BUN 21, creatinine 0.9. Chest x-ray shows interstitial thickening suggestive of pulmonary edema, trace bilateral pleural effusion. ASSESSMENT AND PLAN: An 87-year-old male with extensive cardiac problems, now admitted with pulmonary edema and associated symptoms. I have been consulted for [id number] hyponatremia. Hyponatremia: He has had hyponatremia secondary to SIADH and excessive fluid intake for many years. Despite multiple efforts, he has not changed the fluid restriction part and even now he drinks more than 100 ounces of liquid per day. He always feels that he can eat more salt to counter the low sodium, which I have repeatedly told that is not the solution. At this point, he has pulmonary edema and he needs to be diuresed and put on fluid restriction. RECOMMENDATION: 1. Do not use salt tablet and do not discharge him on salt tablet. 2. Fluid restriction to 1500 mL per day, to be continued for Outpt. I doubt he will follow fluid limit 3. For home use lasix 40 po bid for now. to be readjusted after outpt follow up.. 4.Can be discharged from renal standpoint. na now 131--baseline Results & Data Vital Signs (Past 12 Hours) Vital Signs Temp Pulse Pulse Resp BP Pulse Ox O2 Del Method 12/01/22 07:35 36.5 C 74 18 151/90 H 98 Room Air 12/01/22 02:32 36.6 C 80 18 141/87 H 97 Room Air 11/30/22 23:12 36.7 C 79 18 120/73 98 Room Air 11/30/22 23:45 87
--- NOTE | 2022-12-01 11:46 | Cardiology Progress Note ---
Date of Service December 01, 2022 Assessment & Plan (1) Acute on chronic heart failure with preserved ejection fraction (HFpEF): (2) Chronic hyponatremia: (3) SIADH (syndrome of inappropriate ADH production): (4) Aortic stenosis: (5) Coronary artery disease: (6) Supratherapeutic INR: Plan Poor historian, underlying dementia. at bedside. Presented with acute decompensated heart failure and hyponatremia. Treated with IV furosemide with good response. History and examination this morning with improvement, ongoing mild volume overload. Patient adamant about discharge to home today. Nephrology has made recommendations to avoid salt tablets, restrict fluids to 1500 mL/day, and utilize oral furosemide at 40 mg twice per day for now, to be readjusted at follow-up. INR has improved down to 2.3. Recommend changing from Coumadin to Eliquis anticoagulation, 5 mg twice a day, to be started tomorrow AM Continue metoprolol, aspirin, statin, and isosorbide. Clopidogrel discontinued this admission Outpatient cardiology follow-up with Mrs. Ewelina Poole on January 14, 2023 at 2:00 PM Admission and Anticipated Discharge Date Admission Date: November 29, 2022 Supervising Physician Co-Signing Physician Notes Supervising Physician Attestation: I have personally performed a history and physical examination on the patient. I agree with the physician licensed loan officer assistant's findings and plan as documented with the following additions. Subjective: Patient subjectively improved Exam: Pulmonary: Clear to auscultation bilaterally Cardiovascular: Regular rhythm, no murmurs, no edema Data: INR 2.3 Assessment and Plan: Acute heart failure with preserved ejection fraction * Discharge diuretic plan as noted above * Given recent labile INRs, transition from Coumadin to Eliquis, first dose of Eliquis tomorrow given INR of 2.3 today. Stable from cardiology perspective for discharge Marco Mcpherson, Subjective Patient seen and examined. Chart, medications, and telemetry reviewed. at bedside. Patient is adamant about leaving the hospital today. No chest pain. Breathing has improved. No palpitations. Ambulatory to the bathroom without dizziness or lightheadedness. I's/O's -4025 mL overall. Telemetry: Sinus with a first-degree AV block, frequent atrial ectopy. No overt atrial fibrillation. No significant pauses or high degree heart block. No ventricular tachycardia. Physical Exam Physical Exam: General: A&Ox3. NAD. HENT: Normocephalic. Atraumatic. Eyes: PER. Conjunctiva pink, sclera clear. Neck: Carotid bruits. No JVD. Heart: Regular at 70 bpm. Grade II systolic murmur Lungs: Bibasilar Rales. No wheeze. Abdomen: +BS. Soft. Nontender. No masses or organomegaly. Extremities: Varicosities. Trivial edema. No clubbing. No cyanosis. Limited neurological examination is without focal deficits. Pulses: radial=2/4, posterior tibial=1/4. Results & Data Vital Signs (Past 12 Hours) Vital Signs Temp Pulse Resp BP Pulse Ox O2 Del Method 12/01/22 11:20 36.6 C 76 16 107/68 97 Room Air 12/01/22 07:35 36.5 C 74 18 151/90 H 98 Room Air 12/01/22 02:32 36.6 C 80 18 141/87 H 97 Room Air Laboratory Results Cardiac Enzymes 12/01/22 Range/Units 06:00 AST 46 H (13-39) U/L Coagulation 12/01/22 Range/Units 06:00 PT 23.9 H (9.0-12.0) Seconds CBC 12/01/22 Range/Units 06:00 WBC 5.60 (4.8-10.8) K/ul RBC 4.39 L (4.70-6.10) M/uL Hgb 12.0 L (14.0-18.0) g/dl Hct 35.3 L (42.0-52.0) % Plt Count 125 L (130-400) K/uL Neut # (Auto) 3.39 (1.40-6.50) K/uL Lymph # (Auto) 0.93 L (1.2-3.4) K/uL [place] # (Auto) 0.84 H (0.11-0.59) K/uL Eos # (Auto) 0.39 (0-0.50) K/uL Baso # (Auto) 0.03 (0-0.2) K/uL Comprehensive Metabolic Panel 11/30/22 12/01/22 Range/Units 14:10 06:00 Sodium 125 L 131 L (136-145) mmol/L Potassium 3.6 D 3.9 (3.5-5.1) mmol/L Chloride 90 L 93 L (98-107) mmol/L Carbon Dioxide 27 30 (21-32) mmol/L BUN 21 17 (6-23) mg/dl Creatinine 0.89 0.97 (0.6-1.4) mg/dl Glucose 133 H 100 H (70-99(Fasting)) mg/dl Calcium 8.6 8.8 (8.6-10.3) mg/dl AST 46 H (13-39) U/L ALT 27 (7-52) U/L Alkaline Phosphatase 60 (34-104) U/L Total Protein 6.5 (6.0-8.3) gm/dl Albumin 3.6 (3.4-5.0) gm/dl Intake and Output 11/30/22 12/01/22 12/01/22 22:59 06:59 14:59 Intake Total 350 / 1350 300 / 1350 Output Total 1700 / 4775 775 / 4775 Balance -1350 / -3425 -475 / -3425 Intake: Oral 350 / 1250 300 / 1250 Output: Urine 1700 / 4775 775 / 4775 Other: Weight 99.1 kg Weight Measurement Method Built in [facility]
--- NOTE | 2022-12-01 13:26 | Discharge Summary ---
Discharge Summary Date of Service December 01, 2022 Notes For Next Care Provider Patient admitted for acute on chronic diastolic CHF and acute on chronic hyponatremia. He was treated with IV diuresis. He was seen and evaluated by nephrology and cardiology. Patient is being discharged on Lasix 40 mg twice daily along with potassium 20 mEq daily. At the request of nephrology he is to have a BMP on 12/07/2022. He will need to follow-up with nephrology in 2 to 4 weeks to monitor diuretic and this appointment needs to be arranged. His INR was supratherapeutic on admission. His warfarin was held. Cardiology recommended transitioning to Eliquis and therefore warfarin was discontinued. Patient was also noted to be on triple therapy with aspirin, Plavix and warfarin. Per cardiology patient okay discontinue Plavix, and will continue aspirin and Eliquis at discharge. He is encouraged to follow a 1500 mL fluid restriction although mostly noncompliant as outpatient. Medication Changes From Visit New medications: * Lasix 40 mg twice daily, next dose at approximately 5 PM on 12/01/2022 * Eliquis 5 mg twice daily, start on 12/02/2022 at 8 AM * Potassium chloride 20 mEq once daily Stopped medications: * Plavix * Salt tablets * Warfarin Admission HPI Per Admitting Provider This is an 87-year-old male with significant past medical history of CAD, history of CABG x 3 in 2013, mild to moderate aortic stenosis, HTN, HLD, PAF anticoagulated on warfarin, SIADH with chronic hyponatremia, T2DM, hypothyroidism, GERD, Dementia, BPH, hx of lumbar spinal stenosis s/p fusion who presents ED secondary to ALLEN x1 week. He was seen and evaluated in clinic today by PCP due to worsening symptoms and was referred to ED for further evaluation.Of significance patient has history of SIADH with chronic hyponatremia for at least 20 years. He follows nephrology for this. Per recent nephrology notes appears patient is noncompliant with fluid restriction and therefore goal sodium level was above 128. Given all of his cardiac concerns he also follows with cardiology in relation to his CAD, aortic stenosis and atrial fibrillation. He did have an echocardiogram July 19, 2022 which revealed normal EF of 56%, mild to moderate aortic stenosis, mild aortic root enlargement at 4 cm and proximal ascending thoracic aorta mildly enlarged at four-point centimeters but were stable. He follows routinely with cardiology and nephrology. He has hx of T2DM treated with metformin with his last a1c being 6.1 in August. and son are at bedside. Patient states he had worsening shortness of breath for the past week. at bedside states even minimal exertion at home caused him to be significantly short of breath. Also complains of worsened abdominal distention and close not fitting. He does not monitor his weight at home so therefore unsure of weight gain. He complains of orthopnea and mild increase in swelling of his lower extremities. He has been taking his medications as prescribed. His Lasix has been since discontinued approximately 3 months ago due to lower blood pressure. His appetite is normal. He does not follow fluid restriction. Recently saw nephrology about a week ago. He denies any recent illness, fever, chills, sweats, lightheadedness, dizziness, syncope, chest pain, shortness breath at rest, nausea, vomiting, abdominal pain. He has frequent nocturia due to BPH. In ED patient received 40 mg of IV Lasix. Admission Exam Per Admitting Provider Constitutional: WD/WN, vitals as above, NAD, sitting up in bed, pleasant, conversing easily Head: Normocephalic, Atraumatic Eyes: PERRL, conjunctivae normal, anicteric sclerae ENMT: external ear and nose normal, oropharynx normal Neck: trachea midline, no thyromegaly normal visual inspection Respiratory: normal respiratory effort, lungs clear to auscultation, no wheeze, rales, rhonchi. Normal insp/exp effort, no accessory muscle use Cardiovascular: IRR/IRR, 2/6 NELI noted RUSB, trace b/l lower ext edema Vessels: no JVD or carotid bruit Chest: normal inspection of chest Abdomen: normal bowel sounds, soft, but distended abd, nontender, no hepatosplenomegaly Musculoskeletal: no cyanosis or clubbing, extremities motor strength 5/5 Skin: no rashes, warm and dry normal turgor Neurologic: PERRL, EOMI, accommodation nl, no face palsy, no dysarthria CN's II-XI intact bilaterally and moves all extremities Psychiatric: A+Ox3 to basics, euthymic affect Lymphatic: no cervical or axillary lymphadenopathy : deferred Principal Dx & Hospital Course #1 = Principal Diagnosis (1) Acute on chronic heart failure with preserved ejection fraction (HFpEF): (2) Chronic hyponatremia: (3) SIADH (syndrome of inappropriate ADH production): (4) Supratherapeutic INR: (5) Diabetes mellitus type 2 with complications: Plan This is an 87-year-old male with significant past medical history of CAD, history of CABG x 3 in 2013, mild to moderate aortic stenosis, HTN, HLD, PAF anticoagulated on warfarin, SIADH with chronic hyponatremia, T2DM, hypothyroidism, GERD, Dementia, BPH, hx of lumbar spinal stenosis s/p fusion who presents ED secondary to ALLEN x1 week. Pt has been off lasix for ~ 3months due to lower blood pressure. His imdur was also cut in 07/12. Over past week noticed increased ALLEN, orthopnea, edema and abd bloating. He does not monitor weight. Pt with chronic hyponatremia of 20+yrs due to SIADH and he does not restrict fluid as directed, feels fluid intake is at his baseline. Pt now presenting with decompensated CHF and a/c hyponatremia. Patient was started on IV Lasix 40 mg twice daily. Cardiology and nephrology were on board. Most recent echocardiogram as outpatient from July 2022 showed preserved EF with mild to moderate aortic stenosis. Nephrology recommends continuing 1500 mL fluid restriction and discontinuing sodium chloride tablets. It is also recommended that patient be discharged on Lasix 40 mg twice daily along with potassium chloride 20 mill equivalents daily. Cardiology saw and evaluated the patient as well and agree with nephrology recommendations. Of note patient's INR was supratherapeutic on admission and warfarin was held. Due to lability of INR patient's warfarin was discontinued in favor of Eliquis. On day of discharge his INR was 2.3 and he is instructed to begin Eliquis on 12/02/2022. He was also noted to be on triple therapy with aspirin, Plavix and warfarin on admission. Per cardiology he is to discontinue Plavix and just continue aspirin and Eliquis. On day of discharge his sodium was 131. Pt was in good spirits w/o acute complaint of discharge. HE did have improvement in his lower extremity swelling and abdominal bloating. He was hemodynamically stable at time of discharge. His was at bedside and all questions were answered. Discharge Exam Gen: WD/WN, NAD, A&O x3 HEENT: Normocephalic, atraumatic, conjunctivae moist, sclerae anicteric, mucous membranes moist. Lung: Clear to Auscultation bilaterally, no wheezes/rales/rhonchi Heart: Regular rate, regular rhythm, 2/6 NELI noted RUSB, no rubs, or gallops Abdomen: Soft, NT, ND +BS x 4 mild abd bloating Extremities: No edema Skin: Warm, no rash, negative turgor. Updated Medication List Medication Instructions Recorded Confirmed Type aspirin 81 mg tablet,delayed 81 mg PO QAM 07/21/19 11/29/22 History release atorvastatin 80 mg tablet 80 mg PO HS 07/21/19 11/29/22 History isosorbide mononitrate 30 mg 15 mg PO QAM 07/21/19 11/29/22 History tablet,extended release 24 hr metformin 500 mg tablet 500 mg PO QA 07/21/19 11/29/22 History pantoprazole 40 mg tablet,delayed 40 mg PO QA 07/21/19 11/29/22 History release escitalopram oxalate 5 mg tablet 5 mg PO QA 05/31/21 11/29/22 History nitroglycerin 0.4 mg sublingual 0.4 mg sublingual Q5M PRN Chest 05/31/21 11/29/22 History tablet Pain finasteride 5 mg tablet 5 mg PO QA 11/29/22 11/29/22 History iron,carbonyl 65 mg-vitamin C 125 1 tab PO QAM 11/29/22 11/29/22 History mg tablet,delayed release (Vitron-C) levothyroxine 50 mcg tablet 50 mcg PO DAILYBB 11/29/22 11/29/22 History metoprolol succinate 25 mg 25 mg PO DAILY 11/29/22 11/29/22 History tablet,extended release 24 hr apixaban 5 mg tablet (Eliquis) 5 mg PO Q12H #60 tabs 12/01/22 Rx furosemide 40 mg tablet (Lasix) 40 mg PO BID #60 tabs 12/01/22 Rx potassium chloride 20 mEq 20 meq PO DAILY #30 tabs 12/01/22 Rx tablet,extended release Hospital Stay Data Consultations 11/29/22 17:40 ED Decision to Admit Stat 11/29/22 21:51 Consult Cardiology Routine 1) Acute on chronic heart failure with preserved ejection fraction (HFpEF): (2) Chronic hyponatremia: (3) SIADH (syndrome of inappropriate ADH production): (4) Aortic stenosis: (5) Coronary artery disease: (6) Supratherapeutic INR: Plan Poor historian, underlying dementia. at bedside. Presented with acute decompensated heart failure and hyponatremia. Treated with IV furosemide with good response. History and examination this morning with improvement, ongoing mild volume overload. Patient adamant about discharge to home today. Nephrology has made recommendations to avoid salt tablets, restrict fluids to 1500 mL/day, and utilize oral furosemide at 40 mg twice per day for now, to be readjusted at follow-up. INR has improved down to 2.3. Recommend changing from Coumadin to Eliquis anticoagulation, 5 mg twice a day, to be started tomorrow AM Continue metoprolol, aspirin, statin, and isosorbide. Clopidogrel discontinued this admission Outpatient cardiology follow-up with Mrs. Ewelina Poole on January 14, 2023 at 2:00 PM Consult Nephrology Routine RECOMMENDATION: 1. Do not use salt tablet and do not discharge him on salt tablet. 2. Fluid restriction to 1500 mL per day, to be continued for Outpt. I doubt he will follow fluid limit 3. For home use lasix 40 po bid for now. to be readjusted after outpt follow up.. 4.Can be discharged from renal standpoint. na now 131--baseline Pending Results Patient Have Any Pending Studies at Discharge: No Discharge Instructions Given to Patient (Per Discharging Provider) MEDICATION CHANGES: New medications: * Lasix 40 mg twice daily, next dose at approximately 5 PM on 12/01/2022 * Eliquis 5 mg twice daily, start on 12/02/2022 at 8 AM * Potassium chloride 20 mEq once daily Stopped medications: * Plavix * Salt tablets * Warfarin Continue all other medications as prescribed. SUMMARY OF TEST RESULTS: You admitted to hospital secondary to CHF exacerbation as well as worsening sodium levels. Your worsening sodium levels were as a result of too much volume and fluid. You received IV Lasix and your sodium level improved, was 131 on day of discharge. Your INR was elevated when you were admitted and your warfarin was discontinued. Your warfarin is being transitioned to Eliquis for anticoagulation. You will take Eliquis twice daily and this will start tomorrow. PENDING TEST RESULTS: None RECOMMENDATIONS FOR FOLLOW-UP: You were scheduled to get lab work at the request of your resource engineer on December 07. Please present to the lab at any [facility] facility for this. Please follow-up with primary care provider as scheduled. Please follow-up with cardiology as scheduled. You will need to follow-up with nephrology within 2 to 4 weeks. Please call to arrange this appointment. Recommend checking blood pressure twice daily. Keep a log of this. If blood pressure consistently runs in the low 100s recommend contacting PCP. Monitor your weight every day. Recommend checking first thing in the morning. Keep a log of this as well. If you notice greater than 5 pound weight gain contact your hotel or motel manager. Please continue 1500 mL fluid restriction. OTHER INSTRUCTIONS: Seek medical attention if you have: * temperature above 101 * chest pain or trouble breathing * abdominal pain, nausea, vomiting * diarrhea, dark stools or bloody stools * any unanswered questions or concerns Call 911 if symptoms are severe. Please take good care of yourself. It has been a pleasure taking care of you. Please take care of yourself. If you have any questions regarding your recent hospitalization please contact [facility] and request [facility] Hospitalist @ [phone]. Nela Clark PA-C Call 911 and go to the Emergency Room if: * You have tightness or pain in your chest that does not go away with rest or Nitroglycerin * You are very short of breath even with rest Call your doctor if any of the following symptoms or problems start or get worse: * Shortness of breath or difficulty breathing * Wake up at night short of breath * Chest pain * Cough * Swelling of your hands, fee, or legs * More fatigued or tired with your normal activity * Palpitations - sudden fast heart beats WEIGHT * Weigh yourself every morning after using the bathroom. * Use the same scale. * Wear the same amount of clothing. * Write your weight down on your chart. * Call your doctor if you gain more than 2-3 pounds in 1-2 days. MEDICATIONS * Use this discharge instruction sheet for instructions. * Take your medications at the time your doctor ordered. * Do not skip a dose of your medicines. * If you miss a dose of medicine, take as soon as possible, but DO NOT DOUBLE A DOSE. * Read your medicine information when you get home. * Know all of the side effects of your medicine. * Call your doctor's office if you have any side effects. * Be sure all of your doctors know what medicine and herbs you take (including cold, flu, and herbal medicine). * Pain Medicine: If you do not get relief from your pain, please call your doctor for help. Take the following with you to your follow-up doctor appointments: * Weight Chart * Medication List * List of questions Do not drink excessive alcohol, beer or wine. Total Time Total Time Spent Total Time Spent (In Minutes): 45 minutes Supervising Physician Co-Signing Physician Notes Pt seen and examined by me, care coordinated w/ B. OPAL Clark, pls refer to her note above for further detail. Patient seen in follow-up of CHF exacerbation, currently sitting up in chair, in no acute distress, breathing comfortably on room air. He is awake alert and answering simple questions appropriately, however more detailed history obtainable from at the bedside. Patient reports feeling well, denies any chest pain or shortness of breath. Heart sounds regular, lung sounds clear to auscultation bilaterally. No significant lower extremity edema noted. Abdomen soft nontender nondistended. Skin is warm and dry. Discussed with cardiology and nephrology, plan to discharge patient on Lasix 40 mg twice daily, and transition him from warfarin to Eliquis, starting tomorrow. Discussed this in detail with patient's at the bedside, and the patient. He will need to follow-up with his outpatient providers. MD Angel
== END 2022-12-01 13:53 | disposition home or self-care (01) | DRG 291 ==
LOC: ED 12:53 → EDINP 17:55 → SUATTDRO 17:55 → EDINP 23:59 → 2S 11-30 00:09

== ENCOUNTER 2023-11-14 16:32 | Inpatient (IN) ==
--- NOTE | 2023-11-14 16:45 | Emergency Department Note ---
ED Provider Note History of Present Illness Chief Complaint: Hip Pain Stated Complaint: FRACTURED HIP, DOC REF, X-RAYS SENT OVER Time Seen by Provider: 11/14/23 16:40 This patient is an 88-year-old male who presents to the ED for evaluation of a right hip injury. Patient fell overnight landed onto his right hip. He states that he was going to the bathroom and stood up and his feet slipped out from under him. He landed onto his right hip. Denies striking his head. Denies any other injuries. He has been unable to walk since then. He went to a [facility] outpatient clinic today and had x-rays done and was found to have a hip fracture. Home Medications Medication Instructions Recorded Confirmed Type aspirin 81 mg tablet,delayed 81 mg PO QAM 07/21/19 11/14/23 History release atorvastatin 80 mg tablet 80 mg PO HS 07/21/19 11/14/23 History metformin 500 mg tablet 500 mg PO QAM 07/21/19 11/14/23 History pantoprazole 40 mg tablet,delayed 40 mg PO QAM 07/21/19 11/14/23 History release nitroglycerin 0.4 mg sublingual 0.4 mg sublingual Q5M PRN Chest 05/31/21 11/14/23 History tablet Pain finasteride 5 mg tablet 5 mg PO QAM 11/29/22 11/14/23 History iron,carbonyl 65 mg-vitamin C 125 1 tab PO QAM 11/29/22 11/14/23 History mg tablet,delayed release (Vitron-C) levothyroxine 50 mcg tablet 50 mcg PO DAILYBB 11/29/22 11/14/23 History metoprolol succinate 25 mg 25 mg PO DAILY 11/29/22 11/14/23 History tablet,extended release 24 hr apixaban 5 mg tablet (Eliquis) 5 mg PO Q12H #60 tabs 12/01/22 11/14/23 Rx potassium chloride 20 mEq 20 meq PO DAILY #30 tabs 12/01/22 11/14/23 Rx tablet,extended release acetaminophen 650 mg 1,300 mg PO Q12H PRN Pain 07/21/23 11/14/23 History tablet,extended release (Tylenol 8 Hour) cyanocobalamin (vitamin B-12) 1,000 mcg PO DAILY 07/21/23 11/14/23 History 1,000 mcg tablet (Vitamin B-12) escitalopram oxalate 10 mg tablet 10 mg PO QAM 07/21/23 11/14/23 History folic acid 1 mg tablet 1 mg PO DAILY 11/14/23 11/14/23 History furosemide 40 mg tablet (Lasix) 40 mg PO DAILY 11/14/23 11/14/23 History Allergies Allergy/AdvReac Type Severity Reaction Status Date / Time bee venom protein (honey bee) Allergy Unknown swelling Verified 05/31/21 17:06 iodine Allergy Unknown DUE TO Verified 05/31/21 17:06 SHELLFISH ALLERGY-IODINATED DYE-UNKNOWN morphine Allergy Unknown stopped Verified 05/31/21 17:06 breathing Penicillins Allergy Unknown RASH Verified 05/31/21 17:06 shellfish derived Allergy Unknown ANAPHYLAXIS Verified 05/31/21 17:06 Past Med/Surg History Medical History Tachy-santy syndrome Chronic hyponatremia Dyslipidemia Diabetes mellitus type 2 with complications Coronary artery disease Lumbar stenosis Paroxysmal atrial fibrillation Hypertension Surgical History History of carpal tunnel surgery "bilateral" S/P total hip arthroplasty S/P total knee arthroplasty 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; [place]" Family History Father Coronary heart disease Social History Smoking Status: Never smoker Second Hand Exposure: No; Do You Dip or Chew Tobacco: No; Hx Alcohol Use: No Hx Substance Use: No Preferred Language: Namibian Communication Ability: Effective 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 Beliefs That Will Affect Care: None marital status: Current Living Situation: Spouse current occupational status: retired Feels Safe at Home: Yes Assistive Devices: None Physical Exam Vital Signs Vital Signs - 24 hr 11/14/23 16:37 11/14/23 18:47 11/14/23 18:59 Temperature 36.2 C L Temperature Source Temporal Artery Scan Pulse Rate 64 65 Pulse Rate [Left Apical] 80 Pulse Rhythm [Left Apical] Regular Pulse Strength [Left Apical] Normal Respiratory Rate 18 18 Respiratory Effort / Characteristics Non-Labored Non-Labored Spontaneous Respiratory Depth Normal Normal Respiratory Pattern Regular Regular Blood Pressure 109/62 Blood Pressure [Left Arm] 139/77 Blood Pressure Mean 77 Blood Pressure Mean [Left Arm] 97 Blood Pressure Position [Left Arm] Lying Pulse Oximetry 100 100 Oxygen Delivery Method Room Air Room Air Sepsis Recent Fever Within 48 Hours No Sepsis New/Unexplained Change in Mental Status N/A Sepsis Action Taken by Nursing No Action Required VITALS: Vitals are noted on the nurse's note and reviewed by myself. GENERAL: This is an 88-year-old male, in no acute distress, mildly anxious appearing. SKIN: The skin was without rashes, erythema, edema, or bruising. HEAD: Normocephalic atraumatic. EYES: Pupils equal round and reactive to light and accommodation. NECK: Supple without nuchal rigidity. Cervical spine is nontender. HEART: Regular rate and rhythm without murmurs gallops or rubs. LUNGS: Clear to auscultation bilaterally without wheezes, rales or rhonchi. MUSCULOSKELETAL: Tenderness over the right lateral hip. NEURO: Patient was alert and oriented to person place and time. Course Administered Medications Atorvastatin Calcium (Atorvastatin 40 Mg Tab) 80 mg PO HS ROMEL Stop: 12/14/23 21:22 Last Admin: 11/14/23 22:39 Dose: 80 mg Documented By: SHEBA Insulin Aspart (Insulin Aspart Per Unit Charge) 0 units SC ACHS ROMEL Stop: 12/14/23 21:22 Last Admin: 11/14/23 22:42 Dose: Not Given Documented By: OTILIA Co-signed By: [facility] Oxycodone HCl (Oxycodone Hcl Ir 5 Mg Tab (Immediate Release)) 5 mg PO Q4H PRN PRN Reason: MODERATE Pain (4,5,6) & Pre PT Stop: 11/28/23 21:22 Last Admin: 11/15/23 00:52 Dose: 5 mg Documented By: KG Discontinued Medications Acetaminophen (Acetaminophen 500 Mg Tab) 1,000 mg PO NOW STA Stop: 11/14/23 20:24 Last Admin: 11/14/23 20:53 Dose: 1,000 mg Documented By: [facility] Fentanyl Citrate (Fentanyl Citrate Pf 100 Mcg/2 Ml Vial) 50 mcg IV NOW STA Stop: 11/14/23 17:56 Last Admin: 11/14/23 18:09 Dose: 50 mcg Documented By: [facility] Medical Decision Making Differential Diagnosis Fracture, dislocation, neurovascular compromise, compartment syndrome, soft tissue injury, as well as other pathologies. Laboratory Data Attestation: I reviewed the patient's lab results. 11/14/23 17:51 11/14/23 17:51 Lab Results 11/14/23 11/14/23 Range/Units 17:51 18:27 WBC 10.50 (4.8-10.8) K/ul RBC 3.39 L (4.70-6.10) M/uL Hgb 10.6 L (14.0-18.0) g/dl Hct 30.9 L (42.0-52.0) % MCV 91.2 (80.0-100.0) fL MCH 31.3 (25.0-34.0) pg MCHC 34.3 (32.0-36.0) g/dL RDW Std Deviation 46.3 (36.4-46.3) fL RDW Coeff of [place] 13.7 (11.5-14.5) % Plt Count 140 (130-400) K/uL MPV 9.2 L (9.4-12.4) fL Immature Gran % (Auto) 0.9 % Neut % (Auto) 78.1 % Lymph % (Auto) 11.0 % [place] % (Auto) 9.4 % Eos % (Auto) 0.3 % Baso % (Auto) 0.3 % Neut # (Auto) 8.21 H (1.40-6.50) K/uL Lymph # (Auto) 1.15 L (1.20-3.40) K/uL [place] # (Auto) 0.99 H (0.11-0.59) K/uL Eos # (Auto) 0.03 (0.00-0.50) K/uL Baso # (Auto) 0.03 (0.00-0.20) K/uL Immature Gran # (Auto) 0.09 (0.01-0.20) K/uL PT 13.9 H (9.0-12.0) Seconds INR 1.3 H (0.9-1.1) APTT 29 (21-31) Seconds PTT Ratio 1.1 Sodium 123 L (136-145) mmol/L Potassium 4.5 (3.5-5.1) mmol/L Chloride 90 L (98-107) mmol/L Carbon Dioxide 20 L (21-32) mmol/L Anion Gap 13 H (3-11) BUN 23 (6-23) mg/dl Creatinine 0.89 (0.6-1.4) mg/dl Est Cr Clr Drug Dosing 67.3 ml/min Est GFR ( Amer) 89.7 ml/min Est GFR (Non-Af Amer) 77.4 ml/min BUN/Creatinine Ratio 25.8 H (10-20) Glucose 139 H (70-99(Fasting)) mg/dl Calcium 9.5 (8.6-10.3) mg/dl Total Bilirubin 1.1 H (0.2-1.0) mg/dl AST 26 (13-39) U/L ALT 17 (7-52) U/L Alkaline Phosphatase 67 (34-104) U/L Total Protein 7.7 (6.0-8.3) gm/dl Albumin 4.8 (3.4-5.0) gm/dl Globulin 2.9 (2.5-4.0) gm/dl Albumin/Globulin Ratio 1.7 (0.9-2) Urine Color Yellow Urine Appearance Clear (Clear) Urine pH 6.5 (4.5-7.5) Ur Specific [place] 1.018 (1.000-1.030) Urine Protein Negative (Negative) Urine Glucose (UA) Negative (Negative) Urine Ketones Negative (Negative) Urine Blood Negative (Negative) Urine Nitrite Negative (Negative) Urine Bilirubin Negative (Negative) Urine Urobilinogen Negative (Negative) Ur Leukocyte Esterase Negative (Negative) Imaging Data Attestation: I personally reviewed and interpreted this imaging study as follows: Radiologist's Impression: Hip X-Ray 11/14/23 16:42 XR hip RT min 2V CLINICAL HISTORY: right hip pain, fall TECHNIQUE: 2 views of the right hip were obtained. Comparison: Comparison is made to CT abdomen pelvis 07/21/2023 FINDINGS: There is a mildly comminuted intratrochanteric fracture. Total hip arthoplasty hardware is seen without perihardware lucency or hardware fracture. Soft tissue swelling is seen. IMPRESSION: Acute mildly comminuted intertrochanteric fracture. ACT 112: Negative or not required by law. Electronically signed by: Justino Leblanc M.D. 11/14/2023 6:12 PM Chest X-Ray 11/14/23 16:43 XR chest 1V not portable CLINICAL HISTORY: hip fx TECHNIQUE: Single frontal radiograph of the chest was obtained. Comparison: Comparison is made to chest radiograph 07/07/2023 FINDINGS: Median sternotomy wires are unchanged. Cardiomegaly is noted. The aortic arch is calcified. The lungs are clear. No evidence of pleural effusion or pneumothorax. IMPRESSION: No acute chest disease. ACT 112: Negative or not required by law. Electronically signed by: Justino Leblanc M.D. 11/14/2023 5:55 PM MDM Narrative Patient is an 88-year-old male who presents to the emergency department for evaluation of a right hip fracture diagnosed on outpatient x-ray. X-ray here does confirm an intertrochanteric fracture. Orthopedics consulted and felt this would likely be nonoperative, but since the patient is not able to ambulate and is not safe for discharge home will be admitted for further care. Case discussed with the [facility] hospitalist who agreed to evaluate the patient. He was given fentanyl in the ER for pain. Discharge Plan Visit Data Chief Complaint: Hip Pain Stated Complaint: FRACTURED HIP, DOC REF, X-RAYS SENT OVER ED Provider: Alaina Arambula ED Midlevel Provider: Aurora Albarado Patient Disposition: Admitted As Inpatient Discharge Instructions Interventions: ED Discharge Assessment Last Done: 11/14/23 21:24
--- NOTE | 2023-11-14 17:57 | XRay Report ---
XR chest 1V not portable CLINICAL HISTORY: hip fx TECHNIQUE: Single frontal radiograph of the chest was obtained. Comparison: Comparison is made to chest radiograph 07/07/2023 FINDINGS: Median sternotomy wires are unchanged. Cardiomegaly is noted. The aortic arch is calcified. The lungs are clear. No evidence of pleural effusion or pneumothorax. IMPRESSION: No acute chest disease. ACT 112: Negative or not required by law. Electronically signed by: Justino Leblanc M.D. 11/14/2023 5:55 PM
[2023-11-14] MEDS: fentaNYL citrate PF 100 MCG/2 ML VIAL IV STA (18:09)
--- NOTE | 2023-11-14 18:14 | XRay Report ---
XR hip RT min 2V CLINICAL HISTORY: right hip pain, fall TECHNIQUE: 2 views of the right hip were obtained. Comparison: Comparison is made to CT abdomen pelvis 07/21/2023 FINDINGS: There is a mildly comminuted intratrochanteric fracture. Total hip arthoplasty hardware is seen witho ut perihardware lucency or hardware fracture. Soft tissue swelling is seen. IMPRESSION: Acute mildly comminuted intertrochanteric fracture. ACT 112: Negative or not required by law. Electronically signed by: Justino Leblanc M.D. 11/14/2023 6:12 PM
[2023-11-14 18:22] LABS: Basophils # (auto) 0.03 K/uL (0.00-0.20); Basophils % (auto) 0.3 %; Eosinophils # (auto) 0.03 K/uL (0.00-0.50); Eosinophils % (auto) 0.3 %; Hematocrit (blood only) 30.9 % (42.0-52.0); Hemoglobin 10.6 g/dl (14.0-18.0); Immature Granulocytes # (auto) 0.09 K/uL (0.01-0.20); Immature Granulocytes % (auto) 0.9 %; Lymphocytes # (auto) 1.15 K/uL (1.20-3.40); Mean Corpuscular Hemoglobin 31.3 pg (25.0-34.0); Mean Corpuscular Hgb Conc 34.3 g/dL (32.0-36.0); Mean Corpuscular Volume 91.2 fL (80.0-100.0); Mean Platelet Volume 9.2 fL (9.4-12.4); Monocytes # (auto) 0.99 K/uL (0.11-0.59); Monocytes % (auto) 9.4 %; Neutrophils # (auto) 8.21 K/uL (1.40-6.50); Neutrophils % (auto) 78.1 %; Platelet Count 140 K/uL (130-400); RDW Coefficient of Variation 13.7 % (11.5-14.5); RDW Standard Deviation 46.3 fL (36.4-46.3); Red Blood Count 3.39 M/uL (4.70-6.10)
[2023-11-14 18:28] LABS: Albumin Globulin Ratio 1.7 (0.9-2); Albumin Level 4.8 gm/dl (3.4-5.0); BUN Creatinine Ratio 25.8 (10-20); Bilirubin,Total 1.1 mg/dl (0.2-1.0); Calcium 9.5 mg/dl (8.6-10.3); Creatinine Clr Calc Pharmacy 67.3 ml/min; Est GFR (African American) 89.7 ml/min; Est GFR (Non-African American) 77.4 ml/min; Globulin 2.9 gm/dl (2.5-4.0); Potassium 4.5 mmol/L (3.5-5.1); Total Protein 7.7 gm/dl (6.0-8.3)
[2023-11-14 18:31] LABS: INR 1.3 (0.9-1.1); Partial Thromboplastin Ratio 1.1; Partial Thromboplastin Time 29 Seconds (21-31); Prothrombin Time 13.9 Seconds (9.0-12.0)
[2023-11-14 18:43] LABS: Appearance Urine Clear (Clear); Bilirubin Urine Negative (Negative); Blood Urine Negative (Negative); Color Urine Yellow; Glucose Urine UA Negative (Negative); Ketones Urine Negative (Negative); Leukocyte Esterase Urine Negative (Negative); Nitrite Urine Negative (Negative); Protein Urine Negative (Negative); Specific Gravity Urine 1.018 (1.000-1.030); Urobilinogen Urine Negative (Negative); pH Urine 6.5 (4.5-7.5)
--- NOTE | 2023-11-14 19:50 | Communication Note ---
Date of Service: November 14, 2023 Imaging reviewed. Patient has a nondisplaced periprosthetic fracture involving the tip of the greater trochanter. The femoral component is in stable position it is unchanged from previous imaging from CT abdomen and pelvis in July 2023. Would recommend nonoperative treatment with toe-touch weightbearing and no active hip abduction.
--- NOTE | 2023-11-14 20:27 | History & Physical Report ---
Date of Service November 14, 2023 Assessment & Plan (1) Closed right hip fracture: Plan: mechanical fall with subsequent pain in his right hip. Acetaminophen for pain and oxycodone ordered for severe breakthrough pain. Ortho consulted. He does have chest wall pain and back pain. Will also obtain CT L spine and CT chest now. Pt is notably on apixaban with last dose taken this morning when he fell. No CT head as he reports not hitting his head and no LOC. He currently has no gross focal neurologic deficits and is mentating at baseline. Would have low threshold for CT head if he becomes confused given h/o anticoagulation. Also, patient was set to undergo pacemaker placement this week. Will place him on telemetry and consult cardiology for preop evaluation. Recommend holding apixaban for 48 hours prior to surgery. Last dose was AM on 11/13. 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 He is reporting some pain in his feet and generalized discomfort which is difficult to sort out if this is pain from the hip only, or if he may be symptomatic from his low sodium. For now will place him on a fluid restriction and hold Lasix given Na is 123 and consult nephrology for assistance with perioperative management. (3) Tachy-santy syndrome: Plan: consult cardiology given plan for pacer placement this week. Monitor on telemetry. Will hold Toprol XL for the time being. (4) Coronary artery disease: Plan: s/p CABG in the past, chronic, stable. Denies any active chest pain or SOB in the past 6 months. Cont medical management . (5) History of coronary artery bypass graft: Plan: CABG in May 2014 (6) Paroxysmal atrial fibrillation: Plan: chronic, on AC and toprol XL. Holding both. Patient is currently in NSR. (7) Chronic anticoagulation: (8) Hypertension: Plan: chronic, stable. Hold Lasix with low sodium. (9) Aortic stenosis, moderate: Plan: per echo Jul 2022. (10) DMII (diabetes mellitus, type 2): Plan: chronic, at goal. Conservative coverage with insulin correction and BSG achs perioperatively. DVT proph: SCDs, hold apixaban for 48 hours preop Full Code Dispo-to med telemetry floor. I spent a total [id number] coordinating, documenting, and providing care for this patient excluding time spent in the performance of separately billed serv ices DO [facility] Hospital[facility] History of Present Illness Primary Care Provider: Angelo Vazquez MD 88 yo M presents with right hip pain after a mechanical fall at home this morning. He is still having right hip pain now, feet are hurting, no chest pain or trouble breathing. Right back and side of chest wall are hurting. I was unable to get ahold of his by phone. He explained to me that his legs gave out on him when he was finishing using the toilet this morning. He did not lose consciousness or hit his head. He is having pain and holding his left chest wall and is reporting pain in his back that is worse. He denies chest pain, SOB, bleeding issues, fevers, chills, or any other symptoms at this time. Allergies Allergy/AdvReac Type Severity Reaction Status Date / Time bee venom protein (honey bee) Allergy Unknown swelling Verified 05/31/21 17:06 iodine Allergy Unknown DUE TO Verified 05/31/21 17:06 SHELLFISH ALLERGY-IODINATED DYE-UNKNOWN morphine Allergy Unknown stopped Verified 05/31/21 17:06 breathing Penicillins Allergy Unknown RASH Verified 05/31/21 17:06 shellfish derived Allergy Unknown ANAPHYLAXIS Verified 05/31/21 17:06 Home Medications Medication Instructions Recorded Confirmed Type aspirin 81 mg tablet,delayed 81 mg PO QAM 07/21/19 11/14/23 History release atorvastatin 80 mg tablet 80 mg PO HS 07/21/19 11/14/23 History metformin 500 mg tablet 500 mg PO QAM 07/21/19 11/14/23 History pantoprazole 40 mg tablet,delayed 40 mg PO QAM 07/21/19 11/14/23 History release nitroglycerin 0.4 mg sublingual 0.4 mg sublingual Q5M PRN Chest 05/31/21 11/14/23 History tablet Pain finasteride 5 mg tablet 5 mg PO QAM 11/29/22 11/14/23 History iron,carbonyl 65 mg-vitamin C 125 1 tab PO QAM 11/29/22 11/14/23 History mg tablet,delayed release (Vitron-C) levothyroxine 50 mcg tablet 50 mcg PO DAILYBB 11/29/22 11/14/23 History metoprolol succinate 25 mg 25 mg PO DAILY 11/29/22 11/14/23 History tablet,extended release 24 hr apixaban 5 mg tablet (Eliquis) 5 mg PO Q12H #60 tabs 12/01/22 11/14/23 Rx potassium chloride 20 mEq 20 meq PO DAILY #30 tabs 12/01/22 11/14/23 Rx tablet,extended release acetaminophen 650 mg 1,300 mg PO Q12H PRN Pain 07/21/23 11/14/23 History tablet,extended release (Tylenol 8 Hour) cyanocobalamin (vitamin B-12) 1,000 mcg PO DAILY 07/21/23 11/14/23 History 1,000 mcg tablet (Vitamin B-12) escitalopram oxalate 10 mg tablet 10 mg PO QAM 07/21/23 11/14/23 History folic acid 1 mg tablet 1 mg PO DAILY 11/14/23 11/14/23 History furosemide 40 mg tablet (Lasix) 40 mg PO DAILY 11/14/23 11/14/23 History Past Med/Surg History Medical History (Updated 11/14/23 @ 21:02 by Kayla Bhakta DO) DMII (diabetes mellitus, type 2) Tachy-santy syndrome Chronic hyponatremia Dyslipidemia Diabetes mellitus type 2 with complications Coronary artery disease Lumbar stenosis Paroxysmal atrial fibrillation Hypertension Surgical History History of carpal tunnel surgery "bilateral" S/P total hip arthroplasty S/P total knee arthroplasty 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; [place]" Family History Father Coronary heart disease Social History Smoking Status: Never smoker Second Hand Exposure: No; Do You Dip or Chew Tobacco: No; Hx Alcohol Use: No Hx Substance Use: No Preferred Language: Lithuanian Communication Ability: Effective 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 Beliefs That Will Affect Care: None marital status: Current Living Situation: Spouse current occupational status: retired Feels Safe at Home: Yes Assistive Devices: None Physical Exam Physical Exam: CONSTITUTIONAL: WNWD, vitals as above, generally well-appearing EYES: pupils are round and equal bilaterally, normal conjunctivae, no scleral icterus ENT: external ear and nose normal, oropharynx clear NECK: trachea midline RESPIRATORY: clear to auscultation bilaterally, no crackles, rales or wheezes, normal respiratory effort CARDIOVASCULAR: regular rate and rhythm, S1 and 2 heard without murmurs, gallops or rubs, no JVD, no peripheral edema CHEST: inspection of chest was normal GASTROINTESTINAL: soft, nontender,ND, no guarding MUSCULOSKELETAL: strength 5/5 throughout, head is normocephalic and atraumatic, +chest wall without tenderness lateral left SKIN: warm and dry, I was unable to examine sacrum 2/2 pain and immobility. NEUROLOGIC: No facial palsy, no dysarthria. CN 2-12 grossly intact, no sensory deficit, normal cognition, normal speech, no tremor PSYCHIATRIC: alert cooperative and oriented to person, place and time. Euthymic mood, makes good eye contact, language grossly intact, recent and remote memory grossly intact. at baseline uses walker around the house Results & Data Results & Data Vital Signs (Past 12 Hours) Vital Signs Temp Pulse Pulse Resp BP BP Pulse Ox 11/14/23 18:59 65 11/14/23 18:47 80 18 139/77 100 11/14/23 16:37 36.2 C L 64 18 109/62 100 O2 Del Method 11/14/23 18:59 11/14/23 18:47 Room Air 11/14/23 16:37 Room Air Laboratory Results Short CBC 11/14/23 Range/Units 17:51 WBC 10.50 (4.8-10.8) K/ul Hgb 10.6 L (14.0-18.0) g/dl Hct 30.9 L (42.0-52.0) % Plt Count 140 (130-400) K/uL BMP 11/14/23 17:51 Sodium 123 L Potassium 4.5 Chloride 90 L Carbon Dioxide 20 L BUN 23 Creatinine 0.89 Glucose 139 H Calcium 9.5 Liver Function 11/14/23 Range/Units 17:51 Total Bilirubin 1.1 H (0.2-1.0) mg/dl AST 26 (13-39) U/L ALT 17 (7-52) U/L Alkaline Phosphatase 67 (34-104) U/L Albumin 4.8 (3.4-5.0) gm/dl Urine 11/14/23 Range/Units 18:27 Urine Color Yellow Urine Appearance Clear (Clear) Urine pH 6.5 (4.5-7.5) Ur Specific [place] 1.018 (1.000-1.030) Urine Protein Negative (Negative) Urine Glucose (UA) Negative (Negative) Diagnostic Findings Hip X-Ray 11/14/23 16:42 XR hip RT min 2V CLINICAL HISTORY: right hip pain, fall TECHNIQUE: 2 views of the right hip were obtained. Comparison: Comparison is made to CT abdomen pelvis 07/21/2023 FINDINGS: There is a mildly comminuted intratrochanteric fracture. Total hip arthoplasty hardware is seen without perihardware lucency or hardware fracture. Soft tissue swelling is seen. IMPRESSION: Acute mildly comminuted intertrochanteric fracture. ACT 112: Negative or not required by law. Electronically signed by: Justino Leblanc M.D. 11/14/2023 6:12 PM Chest X-Ray 11/14/23 16:43 XR chest 1V not portable CLINICAL HISTORY: hip fx TECHNIQUE: Single frontal radiograph of the chest was obtained. Comparison: Comparison is made to chest radiograph 07/07/2023 FINDINGS: Median sternotomy wires are unchanged. Cardiomegaly is noted. The aortic arch is calcified. The lungs are clear. No evidence of pleural effusion or pneumothorax. IMPRESSION: No acute chest disease. ACT 112: Negative or not required by law. Electronically signed by: Justino Leblanc M.D. 11/14/2023 5:55 PM Code Status & VTE Plan VTE Prophylaxis Plan VTE Prophylaxis will be ordered: Yes (8) Hypertension Hypertension type: essential hypertension Qualified Code(s): I10 - Essential (primary) hypertension
[2023-11-14] MEDS: ACETAMINOPHEN 500 MG TAB PO STA (20:53)
[2023-11-14] MEDS ORDERED: bisacodyL 10 MG SUPP PR PRN (21:23)
[2023-11-14] MEDS ORDERED: GLUCOSE 40% GEL 15 GM TUBE PO PRN (21:23)
[2023-11-14] MEDS ORDERED: ACETAMINOPHEN 325 MG TAB PO PRN (21:23)
[2023-11-14] MEDS ORDERED: MAGNESIUM HYDROXIDE SUSP 30 ML UDC PO PRN (21:23)
[2023-11-14] MEDS ORDERED: NALOXONE HCL 0.4 MG/1 ML VIAL/CARP IV PRN (21:23)
[2023-11-14] MEDS ORDERED: GLUCAGON FOR INJ 1 MG VIAL SQ PRN (21:23)
[2023-11-14] MEDS ORDERED: DEXTROSE 50% 50 ML SYRINGE IV PRN (21:23)
[2023-11-14] MEDS ORDERED: GLUCOSE 10 TAB/TUBE PO PRN (21:23)
[2023-11-14] MEDS ORDERED: CARBOHYDRATES FOR HYPOGLYCEMIA PO PRN (21:23)
[2023-11-14] MEDS ORDERED: POLYETHYLENE (MIRALAX) 17 GM PACK PO PRN (21:23)
--- NOTE | 2023-11-14 21:54 | CT Scan Report ---
Exam(s): CT CHEST Without Contrast EXAM: CT Chest Without Intravenous Contrast CLINICAL HISTORY: Reason for exam: chest pain, r/o rib fx on left. TECHNIQUE: Axial computed tomography images of the chest without intravenous contrast. CTDI is 56.42 mGy and DLP is 1848.98 mGy-cm. Automated exposure control was utilized for the study. A dose lowering technique was utilized adhering to the principles of ALARA. COMPARISON: Comparison made to prior CT scan lumbar spine from July 07, 2023. FINDINGS: The study is limited secondary to motion artifact. Lungs: Unremarkable. No mass. No consolidation. Pleural space: Unremarkable. No pneumothorax. No significant effusion. Heart: Mild cardiomegaly. No significant pericardial effusion. No significant coronary artery calcifications. Bones/joints: There is an acute 2 column fracture of the T12 vertebral body with bulging the posterior wall into the spinal canal and causing a severe spinal canal stenosis and 17% loss of vertebral body height. There is an acute central column fracture of the T11 vertebral body with 32% loss of vertebral body height. There are possible fracture deformities of the right anterior ninth and 10th ribs. Status post median sternotomy. Soft tissues: Cholelithiasis without evidence of cholecystitis. Vasculature: Ascending aortic aneurysm measuring 40 mm in diameter. Lymph nodes: Unremarkable. No enlarged lymph nodes. IMPRESSION: There are acute fractures of the T11 and T12 vertebral bodies with 32% and 17% loss of vertebral body height respectively. Possible mildly displaced fractures of the right anterior ninth and 10th ribs. Clinical correlation is recommended. Electronically signed by: Joseline Frances MD 11/14/23 21:53 PM
--- NOTE | 2023-11-14 22:04 | CT Scan Report ---
Exam(s): CT L SPINE EXAM: CT Lumbar Spine Without Intravenous Contrast CLINICAL HISTORY: Reason for exam: fall from standing height, back pain. TECHNIQUE: Axial computed tomography images of the lumbar spine without intravenous contrast. CTDI is 56.42 mGy and DLP is 1848.98 mGy-cm. Automated exposure control was utilized for the study. A dose lowering technique was utilized adhering to the principles of ALARA. COMPARISON: No relevant prior studies available. FINDINGS: Vertebrae: There are 5 lumbar type vertebral bodies with a mild generalized curve to the left and normal lumbar lordosis. There is normal vertebral body height and alignment. Status post posterior decompression of L3 and L4 with expected postsurgical changes. There is diffuse osteopenia throughout the visualized bones. There are acute T11 and T12 fractures. Discs/spinal canal/neural foramina: No acute findings. No spinal canal stenosis. Soft tissues: Diverticulosis of the sigmoid colon. IMPRESSION: No evidence of acute lumbar spine pathology. Acute fractures of the T11 and T12 vertebral bodies. Electronically signed by: Joseline Frances MD 11/14/23 22:04 PM
[2023-11-14] MEDS: ATORVASTATIN 40 MG TAB PO SCH (22:39)
[2023-11-14] MEDS: INSULIN ASPART PER UNIT CHARGE SC SCH (22:42)
[2023-11-15] MEDS: oxyCODONE HCL IR 5 MG TAB (IMMEDIATE RELEASE) PO PRN (00:52)
[2023-11-15 04:26] LABS: Hematocrit (blood only) 25.8 % (42.0-52.0); Hemoglobin 9.1 g/dl (14.0-18.0); Mean Corpuscular Hgb Conc 35.3 g/dL (32.0-36.0); Mean Corpuscular Volume 90.8 fL (80.0-100.0); Mean Platelet Volume 9.4 fL (9.4-12.4); Platelet Count 121 K/uL (130-400); RDW Coefficient of Variation 13.6 % (11.5-14.5); RDW Standard Deviation 45.6 fL (36.4-46.3); Red Blood Count 2.84 M/uL (4.70-6.10); White Blood Count 6.54 K/ul (4.8-10.8)
[2023-11-15 04:41] LABS: BUN Creatinine Ratio 23.9 (10-20); Calcium 8.6 mg/dl (8.6-10.3); Creatinine Clr Calc Pharmacy 65.1 ml/min; Magnesium 1.6 mg/dl (1.7-2.4); Potassium 4.2 mmol/L (3.5-5.1)
[2023-11-15] MEDS: LEVOTHYROXINE SODIUM 50 MCG TABLET PO SCH (06:46)
[2023-11-15] MEDS: ACETAMINOPHEN 500 MG TAB PO SCH (06:46)
[2023-11-15] MEDS: ceFAZolin 2000MG 2,000 MG/15 ML SYR IV SCH (08:12)
[2023-11-15] MEDS: ASPIRIN 81 MG ECTAB PO SCH (08:17)
[2023-11-15] MEDS: ESCITALOPRAM OXALATE 10 MG TAB PO SCH (08:17)
[2023-11-15] MEDS: FINASTERIDE 5 MG TAB PO SCH (08:17)
--- NOTE | 2023-11-15 08:17 | Nephrology Consultation ---
Date of Consultation November 15, 2023 Assessment & Plan (1) SIADH (syndrome of inappropriate ADH production): hx of SIADH w/ baseline sNa as OP high 120s/low 130s, in part d/t nonadherence. euvolemic on evaluation. no need to repeat urine studies/ serum osms as this has been a longstanding/conssistent dx. -goal sNa for tomorrow is no more than 129 -FR 1.8L toward which protein shakes do not count; cannot r/o need for tighter FR -strict I/O -avoid nsaids in pain control -control pain which can increase ADH release -will recheck bmp now and would check bid while sNa <127 >bp on low side likely w/ pain meds on board and will hold lasix, K for now >> will start urea 15 gm bid care coordinated w/ dr wong in terms of timing of labs, FR, therapy for hyponatremia and we are in agreement (2) Compression fracture of T12 vertebra: per primary service and ortho; History of Present Illness Reason for Consultation: Chronic hyponatremia/help with perioperative management Requesting Physician: Dr. Bhakta Attending Physician: Castro Wong MD History of Present Illness 88-year-old male whom I am asked to evaluate for chronic hyponatremia and needs for perioperative management for planned orthopedic procedure was admitted yesterday evening with a closed right hip fracture after a fall at home in the bathroom. Since this consult was placed, the patient was evaluated by orthopedics and conservative management is recommended; however eval by spine team pending at time I evaluated him midday. Past medical history includes chronic hyponatremia attributed to SIADH, coronary artery disease status post three-vessel CABG 2013, heart failure with preserved ejection fraction s/p 11/2022 HF admission, paroxysmal atrial fibrillation, aortic stenosis, type 2 diabetes, lumbar stenosis total hip and knee arthroplasty, chronic cognitive impairment/dementia, frequent falls, chronic dry mouth/poor dentition. He has had SIADH for > 20 years per OP neph notes and is nonadherent to fluid limit > drinks >100 oz daily as OP; goal in OP realm in these circumstances is to keep sNa > 125. Pt and son Hernan are at bedside when I saw him at about noon. they provide much of hx as pt is unreliable historian d/t dementia. He did have diarrhea and emesis both yesterday apparently while getting ready to come to hospital and lots of belching. in general he has had a 50 lb wt loss over the past few years, in part d/t poor po intake. his dry mouth is very symptomatic and he was in process of getting dentures but this stalled so has onl bottom set, not maxillary one. no new/worrisome voiding concerns. no edema. R sided rib pain is controlled; he does c/o LLQ pain near the anterior superior iliac spine. cardiology evaluated pt for possible preop optimization; if no OR planned, contemplating pacer generator exchange this admission if feasible. Allergies Allergy/AdvReac Type Severity Reaction Status Date / Time bee venom protein (honey bee) Allergy Unknown swelling Verified 05/31/21 17:06 iodine Allergy Unknown DUE TO Verified 05/31/21 17:06 SHELLFISH ALLERGY-IODINATED DYE-UNKNOWN morphine Allergy Unknown stopped Verified 05/31/21 17:06 breathing Penicillins Allergy Unknown RASH Verified 05/31/21 17:06 shellfish derived Allergy Unknown ANAPHYLAXIS Verified 05/31/21 17:06 Home Medications Medication Instructions Recorded Confirmed Type aspirin 81 mg tablet,delayed 81 mg PO QAM 07/21/19 11/14/23 History release atorvastatin 80 mg tablet 80 mg PO HS 07/21/19 11/14/23 History metformin 500 mg tablet 500 mg PO QAM 07/21/19 11/14/23 History pantoprazole 40 mg tablet,delayed 40 mg PO QAM 07/21/19 11/14/23 History release nitroglycerin 0.4 mg sublingual 0.4 mg sublingual Q5M PRN Chest 05/31/21 11/14/23 History tablet Pain finasteride 5 mg tablet 5 mg PO QAM 11/29/22 11/14/23 History iron,carbonyl 65 mg-vitamin C 125 1 tab PO QAM 11/29/22 11/14/23 History mg tablet,delayed release (Vitron-C) levothyroxine 50 mcg tablet 50 mcg PO DAILYBB 11/29/22 11/14/23 History metoprolol succinate 25 mg 25 mg PO DAILY 11/29/22 11/14/23 History tablet,extended release 24 hr apixaban 5 mg tablet (Eliquis) 5 mg PO Q12H #60 tabs 12/01/22 11/14/23 Rx potassium chloride 20 mEq 20 meq PO DAILY #30 tabs 12/01/22 11/14/23 Rx tablet,extended release acetaminophen 650 mg 1,300 mg PO Q12H PRN Pain 07/21/23 11/14/23 History tablet,extended release (Tylenol 8 Hour) cyanocobalamin (vitamin B-12) 1,000 mcg PO DAILY 07/21/23 11/14/23 History 1,000 mcg tablet (Vitamin B-12) escitalopram oxalate 10 mg tablet 10 mg PO QAM 07/21/23 11/14/23 History folic acid 1 mg tablet 1 mg PO DAILY 11/14/23 11/14/23 History furosemide 40 mg tablet (Lasix) 40 mg PO DAILY 11/14/23 11/14/23 History Patient History Medical History (Updated 11/15/23 @ 17:33 by Tess Badillo MD, PhD) SIADH (syndrome of inappropriate ADH production) DMII (diabetes mellitus, type 2) Tachy-santy syndrome Dyslipidemia Diabetes mellitus type 2 with complications Coronary artery disease Lumbar stenosis Paroxysmal atrial fibrillation Hypertension Surgical History History of carpal tunnel surgery "bilateral" S/P total hip arthroplasty S/P total knee arthroplasty 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; [place]" Family History Father Coronary heart disease Social History Smoking Status: Never smoker Second Hand Exposure: No; Do You Dip or Chew Tobacco: No; Hx Alcohol Use: No Hx Substance Use: No Preferred Language: Egyptian Communication Ability: Effective Ply Bander Required: No Beliefs That Will Affect Care: None marital status: Current Living Situation: Spouse current occupational status: retired Feels Safe at Home: Yes Assistive Devices: Cane and Walker Review of Systems 2 Review of Systems: All systems reviewed & are unremarkable except as noted in HPI & below (limited by pt cognitive status) Physical Exam 2 Constitutional: well developed, well nourished, + frail appearing and cooperative; no acute distress Eyes: EOM intact bilaterally ENMT: Ears: no external ear abnormality Nose: no external nose abnormality Mouth: + dry oral mucous membranes Neck: no nuchal rigidity Respiratory: normal respiratory effort Auscultation: + diminished lung sounds and + crackles Cardiovascular: Rate/Rhythm: regular rate and regular rhythm Heart Sounds: + murmur Extremities: no edema Gastrointestinal (Abdomen): Inspection/Auscultation: normal bowel sounds P ercussion/Palpation: abdomen soft; abdomen nontender Musculoskeletal: Extremities: strength 5/5 throughout Skin: no rashes, warm and dry Neurologic: littlejohn, fluent speech, no tremor Psychiatric: Orientation: oriented to person (unreliable historian), oriented to place and cooperative Results & Data Vital Signs (Past 12 Hours) Vital Signs Temp Pulse Pulse Resp BP BP Pulse Ox 11/15/23 07:11 61 11/15/23 06:53 153/73 H 11/15/23 06:53 65 18 100 11/15/23 06:50 70 12 99 11/15/23 06:40 65 20 95 11/15/23 04:20 62 17 99 11/15/23 04:11 65 17 100 11/15/23 04:00 65 13 99 11/15/23 03:50 76 13 91 11/15/23 03:40 65 15 99 11/15/23 03:30 69 17 98 11/15/23 03:21 70 18 97 11/15/23 03:10 66 18 97 11/15/23 03:01 65 18 97 11/15/23 02:50 67 17 97 11/15/23 02:40 66 19 96 11/15/23 02:30 68 19 96 11/15/23 02:21 68 15 98 11/15/23 02:11 69 18 97 11/15/23 02:00 67 18 96 11/15/23 01:50 68 18 96 11/15/23 01:40 66 17 97 11/15/23 01:30 71 20 94 11/15/23 01:21 69 21 98 11/15/23 01:10 69 28 H 100 11/15/23 01:00 69 14 100 11/15/23 00:50 71 18 11/15/23 00:41 76 28 H 11/15/23 00:30 76 31 H 100 11/15/23 00:20 75 26 H 100 11/15/23 00:10 73 25 H 99 11/15/23 00:00 70 20 99 11/14/23 23:50 67 18 99 11/14/23 23:49 68 16 144/69 H 99 11/14/23 23:36 68 11/14/23 22:55 37 C 68 20 124/66 99 O2 Del Method 11/15/23 07:11 11/15/23 06:53 11/15/23 06:53 11/15/23 06:50 11/15/23 06:40 11/15/23 04:20 11/15/23 04:11 11/15/23 04:00 11/15/23 03:50 11/15/23 03:40 11/15/23 03:30 11/15/23 03:21 11/15/23 03:10 11/15/23 03:01 11/15/23 02:50 11/15/23 02:40 11/15/23 02:30 11/15/23 02:21 11/15/23 02:11 11/15/23 02:00 11/15/23 01:50 11/15/23 01:40 11/15/23 01:30 11/15/23 01:21 11/15/23 01:10 11/15/23 01:00 11/15/23 00:50 11/15/23 00:41 11/15/23 00:30 11/15/23 00:20 11/15/23 00:10 11/15/23 00:00 11/14/23 23:50 11/14/23 23:49 Room Air 11/14/23 23:36 11/14/23 22:55 Room Air Laboratory Results 11/15/23 03:51 11/15/23 03:[address] chest /L spine non con acute fractures of the T11 and T12 vertebral bodies with 32% and 17% loss of vertebral body height respectively. no lumbar spine pathology acutely cxr no acut edz R hip XR Acute mildly comminuted intertrochanteric fracture.
[2023-11-15] MEDS: METOPROLOL SUCC 25MG EXT REL TAB PO SCH (08:18)
[2023-11-15] MEDS: PANTOprazole 40 MG TAB PO SCH (08:18)
--- NOTE | 2023-11-15 09:43 | Cardiology Consultation ---
Date of Consultation November 15, 2023 Assessment & Plan (1) Ground-level fall: (2) Preop cardiovascular exam: (3) Acute hyponatremia: (4) Tachy-alejandro syndrome: (5) Paroxysmal atrial fibrillation: (6) ASCVD (arteriosclerotic cardiovascular disease): (7) Aortic stenosis: Plan Complex 88-year-old male admitted following a ground-level mechanical fall with resultant closed right hip fracture, acute fractures of the T11 and T12 vertebral bodies, and possibly mildly displaced fractures of the right anterior ninth and 10th ribs. Cardiology consultation requested for preoperative clearance, permanent pacemaker implantation scheduled to be performed on 11/16/2023. Options of management discussed with patient (hard of hearing) and family. Perioperative risk is high though without overt contraindication. Continue low dose metoprolol succinate and aspirin perioperatively as able. Will confer with Dr. Cornell, likely delaying permanent pacemaker implantation until patient recovers from the insults associated with the mechanical fall. Resume anticoagulation when determined to be safe. I spent a total of 85 minutes on the date of service in preparation, delivery, and documentation of the care provided to this patient excluding any time spent in the performance of separately billed services. This visit was a split-shared visit with the substantive portion of the medical decision making performed by the supervising toll transmission worker/billing provider. Supervising Physician Co-Signing Physician Notes Patient was seen and personally examined. Full assessment and plan as outlined above by advanced provider. Care, management discussed with advanced provider and endorsed personally Complex 88-year-old male suffered a mechanical fall with injuries as noted above. No surgical plans for orthopedic injuries. Currently plan for pacer generator exchange on . Logistically patient would be better served by undergoing cardiac procedure while hospitalized if possible Will discuss with all parties I spent a total of 25 minutes on the date of service in preparation, delivery, and documentation of the care provided to this patient excluding any time spent in the performance of separately billed services. History of Present Illness Reason for Consultation: Preoperative clearance Requesting Physician: Dr. Bhakta Attending Physician: Dr. Alvarado History of Present Illness Mr. Srini Ch . is a 88-year-old male who was scheduled for permanent pacemaker implantation this week with Dr. Cornell. Unfortunately yesterday evening patient suffered a mechanical fall after using the bathroom with resultant closed right hip fracture, acute fractures of the T11 and T12 vertebral bodies, and possibly mildly displaced fractures of the right anterior ninth and 10th ribs. Cardiology consultation requested for preoperative clearance as well as due to Tachy-Alejandro Syndrome with patient scheduled for permanent pacemaker implantation on Thursday, November 16, 2023 Orthopedics has evaluated the patient, recommending conservative medical management regarding the right hip fracture. Apixaban (Eliquis) held on admission due to anticipated surgical intervention. and son present at bedside. No chest pain. No recent sublingual nitroglycerin use. Occasional palpitations noted. No unusual shortness of breath. No cough or chest congestion. No orthopnea or PND. No lower extremity peripheral edema. No dizziness or lightheadedness. No near- syncope or syncope. Past Medical/Surgical History: ASCVD Multiple prior PCI's, last in November cardiac catheterization with multivessel CAD - LM 50% stenosis, LAD 80% stenosis, LCx 75% proximal stenosis, OM 90%, RCA 50% ulcerative lesion. Status post May 30, 2014 on pump CABG x x 3 [place]-LAD, Ao-dRCA, Ao-OM No history of myocardial infarction. Preserved left ventricular systolic function Moderate to severe aortic stenosis via August 2023 resting echocardiography Paroxysmal atrial fibrillation and flutter [id number] Score 5 points Chronic Eliquis anticoagulation Tachy-Alejandro Syndrome Hyponatremia, SIADH Hypertension Dyslipidemia Type 2 diabetes mellitus Remote abnormal sleep study GERD Arthritis s/p right hip and left knee replacements Chronic back pain s/p lumbar surgery Peripheral neuropathy Nocturia Depression BPH Dementia Family History: Positive for CAD in his father. Social History: Nonsmoker. No alcohol. No illegal drug use. . Four children. 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 Originally from [place]. Allergies Allergy/AdvReac Type Severity Reaction Status Date / Time bee venom protein (honey bee) Allergy Unknown swelling Verified 05/31/21 17:06 iodine Allergy Unknown DUE TO Verified 05/31/21 17:06 SHELLFISH ALLERGY-IODINATED DYE-UNKNOWN morphine Allergy Unknown stopped Verified 05/31/21 17:06 breathing Penicillins Allergy Unknown RASH Verified 05/31/21 17:06 shellfish derived Allergy Unknown ANAPHYLAXIS Verified 05/31/21 17:06 Home Medications Medication Instructions Recorded Confirmed Type aspirin 81 mg tablet,delayed 81 mg PO QAM 07/21/19 11/14/23 History release atorvastatin 80 mg tablet 80 mg PO HS 07/21/19 11/14/23 History metformin 500 mg tablet 500 mg PO QAM 07/21/19 11/14/23 History pantoprazole 40 mg tablet,delayed 40 mg PO QAM 07/21/19 11/14/23 History release nitroglycerin 0.4 mg sublingual 0.4 mg sublingual Q5M PRN Chest 05/31/21 11/14/23 History tablet Pain finasteride 5 mg tablet 5 mg PO QAM 11/29/22 11/14/23 History iron,carbonyl 65 mg-vitamin C 125 1 tab PO QAM 11/29/22 11/14/23 History mg tablet,delayed release (Vitron-C) levothyroxine 50 mcg tablet 50 mcg PO DAILYBB 11/29/22 11/14/23 History metoprolol succinate 25 mg 25 mg PO DAILY 11/29/22 11/14/23 History tablet,extended release 24 hr apixaban 5 mg tablet (Eliquis) 5 mg PO Q12H #60 tabs 12/01/22 11/14/23 Rx potassium chloride 20 mEq 20 meq PO DAILY #30 tabs 12/01/22 11/14/23 Rx tablet,extended release acetaminophen 650 mg 1,300 mg PO Q12H PRN Pain 07/21/23 11/14/23 History tablet,extended release (Tylenol 8 Hour) cyanocobalamin (vitamin B-12) 1,000 mcg PO DAILY 07/21/23 11/14/23 History 1,000 mcg tablet (Vitamin B-12) escitalopram oxalate 10 mg tablet 10 mg PO QAM 07/21/23 11/14/23 History folic acid 1 mg tablet 1 mg PO DAILY 11/14/23 11/14/23 History furosemide 40 mg tablet (Lasix) 40 mg PO DAILY 11/14/23 11/14/23 History Patient History Medical History DMII (diabetes mellitus, type 2) Tachy-alejandro syndrome Chronic hyponatremia Dyslipidemia Diabetes mellitus type 2 with complications Coronary artery disease Lumbar stenosis Paroxysmal atrial fibrillation Hypertension Surgical History History of carpal tunnel surgery "bilateral" S/P total hip arthroplasty S/P total knee arthroplasty 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; [place]" Family History Father Coronary heart disease Social History Smoking Status: Never smoker Second Hand Exposure: No; Do You Dip or Chew Tobacco: No; Hx Alcohol Use: No Hx Substance Use: No Preferred Language: Nepali Communication Ability: Effective French Binder Required: No Beliefs That Will Affect Care: None marital status: Current Living Situation: Spouse current occupational status: retired Feels Safe at Home: Yes Assistive Devices: None Review of Systems Review of Systems: Complete review of systems is otherwise as stated above, negative, or noncontributory. Physical Exam Physical Exam: General: NAD. HENT: Normocephalic. Atraumatic. Eyes: PER. Conjunctiva pink, sclera clear. Neck: Bilateral carotid bruits. No JVD. No HJR. Heart: RRR, 60 bpm. Grade III/ systolic ejection murmur. No diastolic murmur. Lungs: Clear to auscultation anterolaterally. Abdomen: +BS. Soft. Nontender. No masses or organomegaly. Extremities: No clubbing, cyanosis, or edema. Limited neurological examination is without focal deficits. Pulses: radial=2/4, posterior tibial=0/4 on the right and 1/4 on the left Results & Data Vital Signs (Past 12 Hours) Vital Signs Temp Pulse Pulse Resp BP BP Pulse Ox 11/15/23 07:11 61 11/15/23 06:53 153/73 H 11/15/23 06:53 65 18 100 11/15/23 06:50 70 12 99 11/15/23 06:40 65 20 95 11/15/23 04:20 62 17 99 11/15/23 04:11 65 17 100 11/15/23 04:00 65 13 99 11/15/23 03:50 76 13 91 11/15/23 03:40 65 15 99 11/15/23 03:30 69 17 98 11/15/23 03:21 70 18 97 11/15/23 03:10 66 18 97 11/15/23 03:01 65 18 97 11/15/23 02:50 67 17 97 11/15/23 02:40 66 19 96 11/15/23 02:30 68 19 96 11/15/23 02:21 68 15 98 11/15/23 02:11 69 18 97 11/15/23 02:00 67 18 96 11/15/23 01:50 68 18 96 11/15/23 01:40 66 17 97 11/15/23 01:30 71 20 94 11/15/23 01:21 69 21 98 11/15/23 01:10 69 28 H 100 11/15/23 01:00 69 14 100 11/15/23 00:50 71 18 11/15/23 00:41 76 28 H 11/15/23 00:30 76 31 H 100 11/15/23 00:20 75 26 H 100 11/15/23 00:10 73 25 H 99 11/15/23 00:00 70 20 99 11/14/23 23:50 67 18 99 11/14/23 23:49 68 16 144/69 H 99 11/14/23 23:36 68 11/14/23 22:55 37 C 68 20 124/66 99 Laboratory Results Cardiac Enzymes 11/14/23 11/15/23 Range/Units 17:51 07:56 AST 26 (13-39) U/L Troponin I High Sens 28.4 H (0-20) pg/ml Coagulation 11/14/23 Range/Units 17:51 PT 13.9 H (9.0-12.0) Seconds APTT 29 (21-31) Seconds CBC 11/14/23 11/15/23 Range/Units 17:51 03:51 WBC 10.50 6.54 (4.8-10.8) K/ul RBC 3.39 L 2.84 L (4.70-6.10) M/uL Hgb 10.6 L 9.1 L (14.0-18.0) g/dl Hct 30.9 L 25.8 L (42.0-52.0) % Plt Count 140 121 L (130-400) K/uL Neut # (Auto) 8.21 H (1.40-6.50) K/uL Lymph # (Auto) 1.15 L (1.20-3.40) K/uL Kinney # (Auto) 0.99 H (0.11-0.59) K/uL Eos # (Auto) 0.03 (0.00-0.50) K/uL Baso # (Auto) 0.03 (0.00-0.20) K/uL Comprehensive Metabolic Panel 11/14/23 11/15/23 Range/Units 17:51 03:51 Sodium 123 L 125 L (136-145) mmol/L Potassium 4.5 4.2 (3.5-5.1) mmol/L Chloride 90 L 93 L (98-107) mmol/L Carbon Dioxide 20 L 24 (21-32) mmol/L BUN 23 22 (6-23) mg/dl Creatinine 0.89 0.92 (0.6-1.4) mg/dl Glucose 139 H 108 H (70-99(Fasting)) mg/dl Calcium 9.5 8.6 (8.6-10.3) mg/dl AST 26 (13-39) U/L ALT 17 (7-52) U/L Alkaline Phosphatase 67 (34-104) U/L Total Protein 7.7 (6.0-8.3) gm/dl Albumin 4.8 (3.4-5.0) gm/dl Intake and Output 11/14/23 11/15/23 11/15/23 22:59 06:59 14:59 Output Total 550 / 550 Balance -550 / -550 Output: Urine Amount (Catheter) 550 / 550 Olivo/Indwelling 550 / 550 Other: Weight 92 kg Weight Measurement Method Built in [facility] Diagnostic Findings August 2023 TTE Interpretation Summary (as per Dr. Middleton): The qualitative LV ejection fraction is 50-54% (normal). The left ventricular cavity size is normal. The LV wall thickness is mildly increased (concentric). The left atrium is severely enlarged (>48 ml/m^2,). The right atrium is mildly enlarged. The left ventricular diastolic function is mildly abnormal (grade I). The aortic valve is moderately calcified. Moderate to severe aortic stenosis Mild aortic valve regurgitation is present. Mild mitral regurgitation is present. Mild tricuspid regurgitation is present. September 2023 [facility]io Monitor: Patient had a min HR of 31 bpm, max HR of 207 bpm, and avg HR of 61 bpm. Predominant underlying rhythm was Sinus Rhythm. First Degree AV Block was present. 2 Ventricular Tachycardia runs occurred, the run with the fastest interval lasting 4 beats with a max rate of 207 bpm, the longest lasting 5 beats with an avg rate of 125 bpm. Atrial Flutter occurred (36% burden), ranging from 31-144 bpm (avg of 62 bpm), the longest lasting 4 days 23 hours with an avg rate of 62 bpm. 24 Pauses occurred, the longest lasting 3.7 secs (16 bpm). Atrial Flutter was detected within +/- 45 seconds of symptomatic patient event(s). Isolated SVEs were occasional (1.3%, 92520), SVE Couplets were rare (<1.0%, 757), and SVE Triplets were rare (<1.0%, 124). Isolated VEs were rare (<1.0%, 9875), VE Couplets were rare (<1.0%, 104), and VE Triplets were rare (<1.0%, 1). Ventricular Bigeminy and Trigeminy were present. Telemetry: Sinus/sinus bradycardia. No significant pauses. No atrial fibrillation/flutter thus far.
--- NOTE | 2023-11-15 12:16 | Hospitalist Progress Note ---
Date of Service November 15, 2023 Assessment & Plan (1) Ground-level fall: Plan 88-year-old male who presented with right hip pain after mechanical fall at home is being managed for the following: Admitting labs: Hemoglobin 10.6 [baseline around 11-12],sodium 123 [baseline around 1 25-1 27], UA negative for UTI. Admitting imagings: Hip x-ray: Acute mildly comminuted intertrochanteric fracture. CXR: No acute chest disease. CT chest: Acute fracture of T11 and 12 vertebral bodies with 32% and 17% loss of vertebral body height respectively. Possible mildly displaced fracture of the right anterior ninth and 10th ribs. Lumbar spine CT: No evidence of acute lumbar spine pathology. Acute fractures of the T11 and 12 vertebral bodies. Mechanical Fall: Would have low threshold for CT head if he becomes confused given h/o anticoagulation. Closed right hip fracture: Right anterior ninth and 10th rib fracture: c/w pain Mx. Came in with fall/right hip pain. See imaging above. Orthopedics evaluated, nonoperative management with toe-touch weightbearing and no active hip abduction. PT/OT when able. Pain management, bowel regimen. Send vitamin D level. last dose of apixaban taken 5/6 AM, hold until Hb stabilizes and if no plan of operative intervention, then can resume likely guru if Hb deemed stable. Acute on chronic anemia: Baseline hemoglobin around 11-12, admitting hemoglobin of 10.6, hemoglobin today 9.1. Likely secondary to blood loss secondary to hip fracture. Monitor H&H closely. Patient with no shortness of breath/chest pain/palpitation/dizziness. T11 and 12 vertebral body fracture: See imaging above. Patient reports pain under control. Orthospine consult pending. PT and OT when cleared per orthospine. 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 some drop from his baseline. Nephro on board, await recs. Na improving closer to baseline. Tachy-santy syndrome: consult cardiology given plan for pacer placement this week. Monitor on telemetry. Coronary artery disease: s/p CABG in the past, chronic, stable. Denies any active chest pain or SOB in the past 6 months. Cont medical management . History of coronary artery bypass graft: CABG in May 2014 Paroxysmal atrial fibrillation: chronic, on AC and toprol XL. Patient is currently in NSR. Eliquis - see above. Other chronic medical conditions: Hypertension/aortic stenosis/T2DM - continue with/resume home meds as and when able. DVT prophylaxis: SCDs: Eliquis on hold Full code Dispo: PT/OT after orthospine eval, CM to assist with DC planning. Admission and Anticipated Discharge Date Admission Date: November 14, 2023 Subjective Patient was seen and examined at bedside. Patient was lying in bed, on room air, NAD, resting comfortably. Patient's son and at bedside were also updated on plan of care. Patient is very hard of hearing, reads in the mobile device to communicate. Patient denies sore throat, reports pain under control, denies cough, headache, dizziness. Patient reports his appetite being at baseline. Physical Exam Physical Exam: GENERAL: Alert and oriented x3. NAD, on RA. Very [place]. HEENT: No pallor, no icterus. Pupils equal, round and reactive to light. Oral mucosa moist. NECK: No JVD, no neck masses. HEART: S1 and S2 heard. Regular rate and rhythm. No murmur, no gallop. RESPIRATORY SYSTEM: Normal AP diameter. No accessory muscle use. No wheezing, no crackles. ABDOMEN: Soft, bowel sounds present, nontender, no distention. CENTRAL NERVOUS SYSTEM: No facial droop. Speech is clear. Obeys simple commands. Moves extremities. EXTREMITIES: No edema, no erythema seen. non tender right hip. Results & Data Results & Data Vital Signs (Past 12 Hours) Vital Signs Pulse Resp BP Pulse Ox 11/15/23 07:11 61 11/15/23 06:53 153/73 H 11/15/23 06:53 65 18 100 11/15/23 06:50 70 12 99 11/15/23 06:40 65 20 95 11/15/23 04:20 62 17 99 11/15/23 04:11 65 17 100 11/15/23 04:00 65 13 99 11/15/23 03:50 76 13 91 11/15/23 03:40 65 15 99 11/15/23 03:30 69 17 98 11/15/23 03:21 70 18 97 11/15/23 03:10 66 18 97 11/15/23 03:01 65 18 97 11/15/23 02:50 67 17 97 11/15/23 02:40 66 19 96 11/15/23 02:30 68 19 96 11/15/23 02:21 68 15 98 11/15/23 02:11 69 18 97 11/15/23 02:00 67 18 96 11/15/23 01:50 68 18 96 11/15/23 01:40 66 17 97 11/15/23 01:30 71 20 94 11/15/23 01:21 69 21 98 11/15/23 01:10 69 28 H 100 11/15/23 01:00 69 14 100 11/15/23 00:50 71 18 11/15/23 00:41 76 28 H 11/15/23 00:30 76 31 H 100 11/15/23 00:20 75 26 H 100 11/15/23 00:10 73 25 H 99
[2023-11-15] MEDS: MAGNESIUM SULFATE / D5W 1 GM/100 ML BAG IV SCH (14:03)
--- OUTSIDE RECORDS SUMMARY | 2023-11-15 14:35 | External Medical Summary | Summary of Care ---
Author Name Unknown Organization [facility] Address [address] [place] [address] Phone [phone] Care Team Providers Care Device Processing Engineer Name Role Phone Angelo Vazquez MD Primary Care Provider + Reason for Visit * Reason Onset Date Comments Advice 11/09/2023 Encounter Details Date Type Department Care Team (Late st Contact Info) Description 11/09/2023 Telephone Cardiology, [place] [address] [facility] [place] [address] Melyssa Cornell Jia, [address] [facility] [place] [address] Advice Allergies Active Allergy Reactions Criticality Noted Date Comments Bee Venom 12/30/2015 Iodine Other (Please comment) 08/18/2011 Pt says not to use due to shellfish allergy Morphine Anaphylaxis High 08/18/2011 Penicillins Rash 08/18/2011 Shellfish Allergy Edema airway High 08/18/2011 documented as of this encounter (statuses as of 11/14/2023) Medications Medication Sig Dispensed Refills Start Date End Date Status TYLENOL ARTHRITIS PAIN 650 MG PO TBCR 2 TABLETS EVERY 8 HOURS NEEDED 60 Tab 5 07/25/2014 Active FLONASE 50 MCG/ACT NA SUSPIndications:Christian al erythema Administer into nostril. 1 Bottle 2 10/09/2014 Active Ca Carbonate-Mag Hydroxide 550-110 MG Oral Tablet Chewable Take by mouth. 0 Active Aspirin 81 MG Oral Tablet Delayed Release Take 1 Tablet by mouth in the morning. 0 Active Vitron-C 65-125 MG Oral Tablet (Iron-Vitamin C 65-125 mg per tab)Indications:Iro n deficiency anemia Take 1 Tablet by mouth in the morning. 0 07/22/2022 Active Levothyroxine Sodium 50 MCG Oral Tablet (Levoxyl) TAKE ONE TABLET BY MOUTH IN THE MORNING AT LEAST 30 MINUTES PRIOR TO BREAKFAST OR OTHER MEDS 90 Tablet 3 11/27/2022 11/27/2023 Active Atorvastatin Calcium 80 MG Oral Tablet (Lipitor)Indication s:Paroxysmal atrial fibrillation (HCC),CAD in [place] artery,S/P CABG x 3 TAKE ONE TABLET BY MOUTH DAILY 90 Tablet 3 01/20/2023 01/25/2024 Active metFORMIN HCl 500 MG Oral Tablet (Glucophage)Indicat ions:Type 2 diabetes mellitus with hemoglobin A1c goal of less than 8.0% (HCC) TAKE ONE TABLET BY MOUTH DAILY 90 Tablet 3 04/21/2023 04/20/2024 Active Nitroglycerin 0.4 MG Sublingual Tablet Sublingual (Nitrostat)Indicati ons:CAD in [place] artery DISSOLVE 1 TABLET UNDER THE TONGUE NEEDED FOR CHEST PAIN, MAY REPEAT EVERY 5 MINUTES FOR 3 TOTAL DOSES 25 Tablet 3 05/30/2023 Active Finasteride 5 MG Oral Tablet (Proscar) Take 1 Tablet by mouth in the morning. 90 Tablet 3 07/12/2023 Active Diclofenac Sodium 1 % External Gel (Voltaren)Indicatio ns:Chronic left-sided low back pain without sciatica Apply topically to affected area 4 times a day. Apply to lumbar 300 g 1 07/26/2023 Active Potassium Chloride ER 20 MEQ Oral Tablet Extended Release take 1 tablet (20 mEq) by mouth daily 30 Tablet 5 07/29/2023 Active Apixaban 5 MG Oral Tablet (Eliquis) Take 1 tablet (5 mg) by mouth every 12 hours 60 Tablet 5 07/29/2023 Active Pantoprazole Sodium 40 MG Oral Tablet Delayed Release (Protonix)Indicatio ns:Gastroesophageal reflux disease without esophagitis TAKE 1 TABLE BY MOUTH 30 MINUTES BEFORE THE FIRST MEAL OF THE DAY. DO NOT CRUSH, SPLIT OR CHEW THE TABLET. 90 Tablet 3 08/19/2023 08/18/2024 Active tiZANidine HCl 4 MG Oral Tablet (Zanaflex) Take 1 Tablet by mouth in the morning and 1 Tablet before bedtime. 60 Tablet 1 09/27/2023 Active Escitalopram Oxalate 10 MG Oral Tablet (Lexapro)Indication s:Mild episode of recurrent major depressive disorder (HCC) Take 1 Tablet by mouth in the morning. 90 Tablet 3 09/29/2023 Active Furosemide 40 MG Oral Tablet (Lasix) Take 1 Tablet by mouth in the morning. 30 Tablet 2 10/13/2023 Active Folic Acid 1 MG Oral Tablet Take 1 Tablet by mouth in the morning. 30 Tablet 11 10/23/2023 Active Metoprolol Succinate ER 25 MG Oral Tablet Extended Release 24 Hour (toPROL XL) TAKE ONE TABLET BY MOUTH DAILY 90 Tablet 3 10/26/2023 10/25/2024 Active documented as of this encounter (statuses as of 11/14/2023) Active Problems Problem Noted Date Diagnosed Date Chronic systolic heart failure 09/27/2023 DM kidney disease 09/27/2023 Renal cyst, acquired, left 01/18/2023 Urge incontinence 01/18/2023 Medical home patient encounter 12/03/2022 Dyspnea on exertion 11/29/2022 Spinal stenosis of lumbar re gion with neurogenic claudication 11/29/2022 Nonrheumatic aortic valve stenosis 10/25/2022 HTN, goal below 140/90 07/09/2022 Age-related cataract of both eyes 01/28/2022 Acquired hypothyroidism 05/28/2021 Mild episode of recurrent major depressive disor abraham 05/28/2021 SIADH (syndrome of inappropriate ADH production) 09/03/2020 Overview: Due to high fluid PO intake. 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 Dry eyes 01/27/2015 S/P CABG x 3 09/28/2014 Type 2 diabetes mellitus wit h hemoglobin A1c goal of less than 8.0% 09/26/2014 Overview: ICD-10 update of inactive term Aortocoronary bypass status 07/25/2014 Diabetic retinopathy 10/10/2013 Overview: Mild 2014 PAF (paroxysmal atrial fibrillation) 07/14/2012 senior living current use of anticoagulant therapy 0 07/14/2012 Overview: ICD-10 update of inactive term Dysthymia 11/30/2011 Coronary artery disease invo lving [place] coronary artery of [place] heart without angina pectoris Overview: 05/30/14 3V CABG [facility]. Prior: 5 stents-hx angina. Drug eluting, & bare metal. Most recent 11/18 1986 LCAD PTCA 12.04 LAD & mid circ drug eluting stents 8.08-distal RCA non drug eluting stent 11/13/10 LAD Ion drug eluting stent 01/14/11 Cardiolite EF55% no ischemia Gastroesophageal reflux disease Overview: Particles are regurgitant, some acid reflux, not much coughing Dyslipidemia documented as of this encounter (statuses as of 11/14/2023) Resolved Problems Problem Noted Date Diagnosed Date Resolved Date History of 2018 novel duff virus disease (COVID-19) 06/01/2021 06/01/2022 Overview: 05/2021 vax x2? DM kidney disease 01/09/2019 02/08/2023 Leg mass 03/31/2016 06/07/2023 Overview: 04/25 cystic on US-silva Donavan Hdz Dermatitis 07/24/2014 06/07/2023 Regurgitation and rechewing 06/27/2014 06/07/2023 Unstable angina 05/29/2014 06/06/2019 CAD (coronary artery disease) 05/29/2014 11/24/2018 Preoperative general physical examination 07/14/2012 06/01/2022 Pain in finger of right hand 09/01/2011 06/06/2018 Prediabetes 08/20/2011 12/08/2018 Overview: 10/22 a1c 6.0 08/22 a1c 5.9 Routine general medical exam ination at a health care facility 08/18/2011 05/28/2021 Overview: Need: Advance planning / HCP?--concern for depression-trial Rx consider 2.21 Needs Shingrix, Sleep apnea EVAL 02/28 FOB WNL 12/27 CLARE WNL 2017 colon/upper. +small tubular adenomas. Upper ok. 02/21 upper EGD WNL, colonoscopy 4mm polyp---tubular adenoma 01/21 NEEDS shingles. Upper/lower endoscopy ordered, hx wt loss 07/23 TTE normal EF mild aortic sclerosis, GradeI anton dys. Td 04/06/10 ?tdap pcv23 05/05/04 psa WNL 02/17/10 Colonoscopy adenomatous polyp 04/06/10--silva 5Y Arthritis 06/07/2023 Overview: right hand worse than left hand, limited flexion of right 5th digit MRI lumbar 01/18 Severe central canal stenosis L3-4, mod L2-3, T11-12 09/17 Cspine MRI-DJD Nocturia 06/07/2023 Overview: 2-3 times per night Nocturia 08/18/2011 Overview: 2-3 times per night Nocturia 08/18/2011 Overview: 2-3 times per night documented as of this encounter (statuses as of 11/14/2023) Immunizations Name Administration Dates Next Due COVID-19 mRNA, LNP-s, No Pre serve, 2-Dose Series ([employer]) 06/11/2021,10/09/2020,09/19/2020 Covid-19, Mrna, Lnp-s, Pf, B ivalent, 30 Mcg, IM, 12 yrs and above ([employer]) 05/03/2022 H1N1 2008 Influenza, IM 06/23/2009 Pneumococcal Conjugate Vacc, 13 Valent (Prevnar) 04/02/2020,01/23/2016,2003 Pneumococcal Conjugate Vacci ne, 7 Valent 2003 Pneumococcal Polysaccharide PPV23 (Pneumovax) 09/15/2014,05/05/2004 RSV Vac., Bivalent, Perfusio n F, Pf,0.5 Ml (Abrysvo) 09/01/2023 Season Influenza, Quad, PF, Adjuvanted, 65+ Yrs, IM (FLUAD) 04/02/2020 Seasonal Influenza, PF, 6 M & above, IM , (FluLaval or Fluzone) 03/29/2018 Seasonal Influenza, Quadriva lent Hd (Fluzone Hd) 03/24/2023,04/20/2022,04/23/2021 Seasonal Influenza, Quadriva lent, No Preserve, IM 03/29/2017,03/30/2016,04/18/2015 Seasonal Influenza, Split, I IV3, With Preserve, Inj 04/01/2014,05/02/2013,03/28/2012,04/10,04/06/2010,03/24/2009,04/26/2008 ,04/27/2007,05/11/2006,04/16/2005,05/12,05/28/2003,04/30/2002, 1,06/01/2000 Seasonal Influenza, Trivalen t, Adjuvanted, 65+ yrs 05/08/2019 TD - Tetanus/Diptheria (ADULT) 04/06/2010 TDAP (age 10 and older)(Boostrix) 02/10/2016 Varicella Zoster Vaccine (Adult) 02/10/2016 Zoster Vaccine Recombinant (Shingrix) 06/06/2019 ,12/08/2018 documented as of this encounter Social History Tobacco Use Types Packs/Day Years Used Date Smoking Tobacco: Never Smokeless Tobacco: Never Alcohol Use Standard Drinks/Week Comments No 0 (1 standard drink = 0.6 oz pur e alcohol) drank alcohol once in 1958 PHQ-2 Answer Date Recorded PHQ Adult Total Score 0 12/03/2022 Hunger Vital Sign Answer Date Recorded Within the past 12 months, y ou worried that your food would run out before you got the money to buy more. Never true 12/04/19 23 Within the past 12 months, t he food you bought just didn't last and you didn't have money to get more. Never true 12/03/2022 Sex and Gender Information Value Date Recorded Sex Assigned at Male 12/03/2022 9:04 AM EDT Gender Identity Male 12/03/2022 9:04 AM EDT Sexual Orientation Straight 12/03/2022 9: 04 AM EDT Job Start Date Occupation Industry Not on file Not on file Not on file documented as of this encounter Functional Status Functional Status Response Date of Assess ment Are you deaf or do you have serious difficulty h earing? Yes 01/04/2019 Are you blind or do you have serious difficulty seeing, even when wearing glasses? No 01/04/2019 Do you have serious difficul ty walking or climbing stairs? (5 years old or older) No 01/04/2019 Do you have difficulty dress ing or bathing? (5 years old or older) No 01/04/2019 Because of a physical, menta l, or emotional condition, do you have difficulty doing errands alone such as visiting a doctor s office or shopping? (15 years old or older) No 01/05/20 19 Cognitive Status Response Date of Assessm ent Because of a physical, menta l, or emotional condition, do you have serious difficulty concentrating, remembering, or making decisions? (5 years old or older) No 01/04/2019 documented as of this encounter Miscellaneous Notes * Telephone Encounter - Tessy Jones LPN - 11/11/2023 4:11 PM EDT Spoke with by phone. Gave date and time. was at doctors visit with Pt, asked that information sent over [facility]/pt portal. Reminded to come in and tile picker chlorhexidine soap. agreed. * Telephone Encounter - Tessy Jones LPN - 11/11/2023 3:28 PM EDT ELECTROPHYSIOLOGY PACEMAKER/ICD INSTRUCTIONS Please arrive at [facility] via the Main Entrance and check in at Outpatient Registration Desk at 1100 (Pt time) on 11/16/23, Melyssa Cornell, DO will preform your Permanent pacemaker. Nothing to eat or drink after midnight No caffeine 24 hours prior to procedure, No tobacco products after midnight DO NOT take the following medications on the morning of your procedure: ELIQUIS* (see below), LASIX/FUROSEMIDE No over the counter vitamins, Fish oil and/or Vit E the morning of your procedure OK to take the following medications with a sip of water at their usual times: All other morning medication OK to take If you take COUMADIN/BLOOD THINNERS: ELIQUIS - Hold for 48 hours. Take MORNING DOSE ONLY on TuesdayNovember 13 and then STOP until after procedure DO NOT wear any jewelry the day of the procedure. Bring your medications with you in their original containers. It may be necessary for you to take them after your procedure. You will need someone to accompany you to drive you home. Prep before procedure The night before the procedure use bottle of soap, use the remaining bottle the morning of procedure. Pour some soap on a clean damp washcloth and wash your chest, each arm and arm pits. Add more soap to washcloth keeping it wet. Wash your back, legs, groin (do not use on genitals) wash buttocks last. Leave soap on the skin for 2 minutes before rinsing off. The morning of the procedure use the remaining bottle of soap and repeat the steps above. Pre Op Testing Proceed to LABS for pre-procedure testing Follow Up Wound Check You will be scheduled for a wound check 1 week after your procedure in our Device Clinic in [facility]. Important Instructions Your surgical site is NOT PERMITTED to get wet in any way while site is covered by bandage. You areunable to shower/swim/hot tub until given permission by clinic nurse in the office. Elbow is not allowed above shoulder level for one month. If you have any questions regarding the procedure before you come or questions in the days after the procedure, please do not hesitate to call the office at [phone] Preventing skin infections after surgery handout given * Telephone Encounter - Tessy Jones LPN - 11/11/2023 10:11 AM EDT LMOM to set up procedure. Transfer to [facility] Cardiology on return call. * Telephone Encounter - Tessy Jones LPN - 11/09/2023 12:38 PM EDT Will discuss with Dr. Cornell in clinic 11/11/23 * Telephone Encounter - Marta Villalba RN - 11/09/2023 11:[address] Cornell, see below. Patient has decided would like to move forward with plan for pacemaker implant. Consult performed 10/18/23 at which time patient was undecided. Please advise on plan to proceed with implant. ARIS Still. * Telephone Encounter - Iris Winston OSA - 11/09/2023 10:47 AM EDT Person calling: Savannah Relationship to patient: spouse Number to return call: [phone] Reason for call: Savannah calling in stating that Srini has had some time to think and he has decided that he would like to proceed in getting a pacemaker placed. Savannah stated the sooner the better. Pharmacy: na Provider Name:Kraig Pt is scheduled 12/06/23 with Savannah Cornell would like procedure set up sooner if possible. documented in this encounter Plan of Treatment Upcoming Encounters Date Type Department Care Team (Late st Contact Info) Description 11/14/2023 2:00 PM EDT Office Visit Family Practice [facility] [address] [place] [id number] Diane Solis MD [address] [place] [address] 11/30/2023 9:20 AM EDT Office Visit Nephrology, [facility] [address] [facility] [place] [address] Jose Winter MD [address] [place] [address] 12/06/2023 11:30 AM EDT Office Visit Cardiology, [facility] [address] [facility] [place] [address] Melyssa Cornell, [address] [facility] [place] [address] 12/26/2023 3:00 PM EDT Office Visit Cardiology, [facility] [address] [facility] [place] [address] Ewelina Poole PA-C [address] [place] [address] 01/24/2024 1:30 PM EDT Office Visit Urology, [facility] [address] [facility] [place] [address] George Tran MD [address] [place] [id number] 03/13/2024 3:00 PM EDT Cardiac Studies Cardiac Studies, [facility] [address] [facility] [place] [address] Scheduled Orders Name Type Priority Associated Diagnoses Orde r Schedule INSERT/REPLACE PACEMAKER,ATRIAL/VENTR ICULAR Procedures Routine Tachy-santy syndrome (HCC) PAF (paroxysmal atrial fibrillation) (HCC) Chronic heart failure with preserved ejection fraction (HCC) Ordered: 11/11/2023 BASIC METABOLIC PANEL Lab Routine Pre-op testing Expected: 11/11/2023, Expires: 11/10/2024 CBC Lab Routine Pre-op testing Expected: 11/11/2023, Expires: 11/10/2024 Health Maintenance Due Date Last Done Comments Colonoscopy 11/02/2022 11/02/2017, 02/09, 03/05/2014 COVID-19 Vaccine ( season) 2023 05/03/2022, 06/11/2021, 10/09/2020, Additional history exists Diabetic Foot Exam 06/01/2023 06/01/2022, 0 12/08/2018, 09/08/2017, Additional history exists Diabetic Eye Exam 11/06/2023 11/05/2022, , 08/06/2022, Additional history exists Albumin/Creatinine Ratio 12/08/2023 023, 06/15/2021, 06/06/2019, Additional history exists HbA1c 02/01/2024 08/03/2023, 08/0 07/2022, 09/01/2022, Additional history exists B-12 09/26/2024 09/27/2023, 07/12, 07/19/2022, Additional history exists TSH 09/26/2024 09/27/2023, 05/12, 09/01/2022, Additional history exists DTaP,Tdap,and Td Vaccines (2 - Td or Tdap) 02/09/2026 02/10/2016, 04/06/2010 RETIRED - COLONOSCOPY-EVERY 5 YRS AGES 18-100 Discontinued 11/02/2017, 03/05/2014, 03/05/2014, Additional history exists Zoster Vaccines Completed 06/06/2019, 11/10, 02/10/2016 Pneumococcal Vaccine: 65+ Years Completed 04/02/2020, 01/23/2016, 09/15/2014, Additional history exists Influenza Vaccine (FLU shot) Completed 03/24/2023, 04/20/2022, 04/23/2021, Additional history exists GARDASIL-HPV IMMUNIZATION SERIES Aged Out No longer eligible based on patient's age to complete this topic Hepatitis B Aged Out No longer eligi ble based on patient's age to complete this topic MENINGOCOCCAL (MENACTRA/MENVEO) Aged Out No longer eligible based on patient's age to complete this topic documented as of this encounter Medical Devices Implanted Type Area Track Repair Person Device Identifier Shelf Expiration Date Model / Serial / Lot Sut Steel 6 [id number] - [id number] Implanted:Qty: 4 on 05/30/2014 by Stanislav Hilliard MD at OR [facility] N/A: Chest JNJ : [employer] 02/07/2019 M654G / / [id number] Marker Coronary [facility] - [id number] Implanted:Qty: 2 on 05/30/2014 by Stanislav Hilliard MD at OR [facility] N/A: Aorta [employer] 03/10/2017 [facility] / / [id number] Lens Intraoc 20.5 - [id number] - [id number] Implanted:Qty: 1 on 02/18/2022 by Yandel Bowens MD at OR [facility] Left: Eye [employer] 11/07/2026 [id number] / [id number] / [id number] Lens Intraoc 21.5 - [id number] - [id number] Implanted:Qty: 1 on 03/04/2022 by Yandel Bowens MD at OR [facility] Right: Eye [employer] 10/08/2026 [id number] / [id number] / [id number] documented as of this encounter Visit Diagnoses Diagnosis Tachy-santy syndrome (HCC)- Primary Sinoatrial node dysfunction Pre-op testing Preoperative examination, unspecified PAF (paroxysmal atrial fibrillation) (HCC) Atrial fibrillation Chronic heart failure with preserved ejection fraction (HCC) documented in this encounter Advance Directives Latest Code Status on File Code Status Date Activated Date Inactivated Comments No Code 03/04/2022 8:43 AM 03/04/2022 2:28 PM This order reflects the patients wishes and were consensually agreed upon. Question Answer Comments Discussion of Advance Directives occurred with: Patient Does the patient have a Living Will? No Does the patient have Health Care Power of Gas Treater? No Code Status History Code Status Date Activated Date Inactivated Comments No Code 02/18/2022 7:51 AM 02/18/2022 2:15 PM This order reflects the patients wishes and were consensually agreed upon. Question Answer Comments Discussion of Advance Directives occurred with: Patient Does the patient have a Living Will? No Does the patient have Health Care Power of Gas Treater? No Full Code 01/04/2019 6:51 PM 01/06/2019 7:26 PM This order reflects the patients wishes and were consensually agreed upon. Question Answer Comments Discussion of Advance Directives occurred with: Patient Full Code 05/30/2014 1:14 PM 06/04/2014 4:45 PM Thi s order reflects the patients wishes and were consensually agreed upon. Full Code 05/29/2014 7:03 PM 05/30/2014 6:33 AM Thi s order reflects the patients wishes and were consensually agreed upon. Question Answer Comments Discussion of Advance Directives occurred with: Patient Does the patient have a Living Will? No Does the patient have Health Care Power of Gas Treater? No Care Teams Device Processing Engineer Relationship Specialty Start Date End Date Angelo Vazquez MD [address] [place] [address] PCP - General Family Medicine 06/24/14 documented as of this encounter
--- OUTSIDE RECORDS SUMMARY | 2023-11-15 14:36 | External Medical Summary | Summary of Care ---
Author Name Unknown Organization [facility] Address [address] [place] [address] Phone [phone] Care Team Providers Care Brake Lining Finisher Asbestos Name Role Phone Angelo Vazquez MD Primary Care Provider + Reason for Visit * Reason Onset Date Comments Advice 11/14/2023 Encounter Details Date Type Department Care Team (Late st Contact Info) Description 11/14/2023 Telephone Family Practice [facility] [address] [place] [address] Angelo Vazquez MD [address] [place] [address] Advice Allergies Active Allergy Reactions Criticality Noted [...] Tablet (Lipitor)Indication s:Paroxysmal atrial fibrillation (HCC),CAD in [place] artery,S/P CABG x 3 TAKE ONE TABLET BY MOUTH DAILY 90 Tablet 3 01/20/2023 01/25/2024 Active metFORMIN HCl 500 MG Oral Tablet (Glucophage)Indicat ions:Type 2 diabetes mellitus with hemoglobin A1c goal of less than 8.0% (HCC) TAKE ONE TABLET BY MOUTH DAILY 90 Tablet 3 04/21/2023 04/20/2024 Active Nitroglycerin 0.4 MG Sublingual Tablet Sublingual (Nitrostat)Indicati ons:CAD in [place] artery DISSOLVE 1 TABLET UNDER THE TONGUE [...] Mild 2014 PAF (paroxysmal atrial fibrillation) 07/14/2012 FPC current use of anticoagulant therapy 0 07/14/2012 Overview: ICD-10 update of inactive term Dysthymia 11/30/2011 Coronary artery disease invo lving [place] coronary artery of [place] heart without angina pectoris Overview: 05/30/14 3V CABG [facility] [place] Prior: 5 stents-hx angina. Drug eluting, & [...] mRNA, LNP-s, No Pre serve, 2-Dose Series ([employer]) 06/11/2021,10/09/2020,09/19/2020 Covid-19, Mrna, Lnp-s, Pf, B ivalent, 30 Mcg, IM, 12 yrs and above ([employer]) 05/03/2022 H1N1 2008 Influenza, IM 06/23/2009 Pneumococcal [...] encounter Miscellaneous Notes * Telephone Encounter - Sinai Funez OSA - 11/14/2023 7:40 AM EDT Patient's , Savannah requesting to speak with nurse. She states patient fell thru the night. He doesn't appear bruised, claims he didn't hit his head. He is not able to bear weight on it. Scheduled appointment. documented in this encounter Plan of Treatment Upcoming Encounters Date Type Department Care Team (Late st Contact Info) Description 11/14/2023 2:00 PM EDT Office Visit Family Practice [facility] [address] [place] [address] Diane Solis MD [address] [place] [address] 11/30/2023 9:20 AM EDT Office Visit Nephrology, [facility] [address] [facility] [place] [address] Jose Winter MD [address] [place] [address] 12/06/2023 11:30 AM EDT Office Visit [facility]iology, [facility] [address] Melyssa Cornell, [address] [facility] [place] [address] 12/26/2023 3:00 PM EDT Office Visit Cardiology, [facility] 132 [facility] [place] [address] Ewelina Poole, OPAL [facility] [address] 01/24/2024 1:30 PM EDT Office Visit Urology, [facility] 132 [facility] [place] [address] George Tran MD [address] [place] [address] [place] [address] 03/13/2024 3:00 PM EDT Cardiac Studies Cardiac Studies, [facility] [place] [address] Health Maintenance Due Date Last Done Comments Colonoscopy 11/02/2022 11/02/2017, 02/09, 03/05/2014 COVID-19 Vaccine ( season) 2023 05/03/2022, 06/11/2021, 10/09/2020, Additional history exists Diabetic Foot Exam 06/01/2023 06/01/2022, 0 12/08/2018, 09/08/2017, Additional history exists Diabetic Eye Exam 11/06/2023 11/05/2022, , 08/06/2022, Additional history exists Albumin/Creatinine Ratio 12/08/2023 023, 06/15/2021, 06/06/2019, Additional history exists HbA1c 02/01/2024 08/03/2023, 0807/2022, 09/01/2022, Additional history exists B-12 09/26/2024 09/27/2023, [...] this encounter Medical Devices Implanted Type Area Hand Plate Stacker Device Identifier Shelf Expiration Date Model / Serial / Lot Sut Steel 6 [id number] - [id number] Implanted:Qty: 4 on 05/30/2014 by Stanislav Hilliard MD [place] [facility] N/A: Chest JNJ : [employer] 02/07/2019 [id number] / / [id number] Marker Coronary [facility]-Sd - [id number] Implanted:Qty: 2 on 05/30/2014 by Stanislav Hilliard MD at [place] [facility] N/A: Aorta [employer] 03/10/2017 [facility] / / [id number] Lens Intraoc 20.5 - [id number] - [id number] Implanted:Qty: 1 on 02/18/2022 by Yandel Bowens MD at OR [facility] Left: Eye [employer] LOMB 11/07/2026 [id number] / [id number] / [id number] Lens Intraoc 21.5 - [id number] - [id number] Implanted:Qty: 1 on 03/04/2022 by Yandel Bowens MD at OR [facility] Right: Eye [employer]CH [employer] LOMB 10/08/2026 [id number] / [id number] / [id number] documented as of this encounter Advance Directives Latest Code Status on File Code Status Date Activated Date Inactivated Comments No Code 03/04/2022 8:43 AM 03/04/2022 2:28 PM This order reflects the patients wishes and were consensually agreed upon. Question Answer Comments Discussion of Advance Directives occurred with: Patient Does the patient have a Living Will? No Does the patient have Health Care Power of Sales Specialist? No Code Status History Code Status Date Activated Date Inactivated Comments No Code 02/18/2022 7:51 AM 02/18/2022 2:15 PM This order reflects the patients wishes and were consensually agreed upon. Question Answer Comments Discussion of Advance Directives occurred with: Patient Does the patient have a Living Will? No Does the patient have Health Care Power of Sales Specialist? No Full Code 01/04/2019 6:51 PM 01/06/2019 [...] the patient have Health Care Power of Sales Specialist? No Care Teams Brake Lining Finisher Asbestos Relationship Specialty Start Date End Date Angelo Vazquez MD [address] [place] [address] PCP - General Family Medicine 06/24/14 documented as of this encounter
--- OUTSIDE RECORDS SUMMARY | 2023-11-15 14:36 | External Medical Summary | Summary of Care ---
Author Name Unknown Organization [facility] Address [address] [place] [address] Phone [phone] Care Team Providers Care Farm Service Adviser Name Role Phone Angelo Vazquez MD Primary Care Provider + Encounter Details Date Type Department Care Team (Late st Contact Info) Description 10/28/2023 2:15 PM EDT Scheduled Telephone Care Coordination and Integration [address], [place] [id number] Sveta Carreon [facility] [address] [place] [address] Allergies Active Allergy Reactions Criticality Noted Date Comments Bee Venom 12/30/2015 Iodine Other (Please comment) 08/18/2011 Pt says not to use due to shellfish allergy Morphine Anaphylaxis High 08/18/2011 Penicillins Rash 08/18/2011 Shellfish Allergy Edema airway High 08/18/2011 documented as of this encounter (statuses as of 10/28/2023) Medications Medication Sig Dispensed Refills Start Date [...] Tablet (Lipitor)Indication s:Paroxysmal atrial fibrillation (HCC),CAD in [place] artery,S/P CABG x 3 TAKE ONE TABLET BY MOUTH DAILY 90 Tablet 3 01/20/2023 01/25/2024 Active metFORMIN HCl 500 MG Oral Tablet (Glucophage)Indicat ions:Type 2 diabetes mellitus with hemoglobin A1c goal of less than 8.0% (HCC) TAKE ONE TABLET BY MOUTH DAILY 90 Tablet 3 04/21/2023 04/20/2024 Active Nitroglycerin 0.4 MG Sublingual Tablet Sublingual (Nitrostat)Indicati ons:CAD in [place] artery DISSOLVE 1 TABLET UNDER THE TONGUE [...] as of this encounter (statuses as of 10/28/2023) Active Problems Problem Noted Date Diagnosed Date [...] 72 02/24/2020 Left renal mass 06/06/2018 Overview: 2017-Dr Sanchez monitor S/P lumbar spinal fusion 09/20/2017 [...] Mild 2014 PAF (paroxysmal atrial fibrillation) 07/14/2012 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 Prior: 5 stents-hx angina. Drug eluting, & bare metal. Most recent 11/18 1986 LCAD PTCA 12.04 LAD & mid circ drug eluting stents 8.08-distal RCA non drug eluting stent 11/13/10 LAD Ion drug eluting stent 01/14/11 Cardiolite EF55% no ischemia Gastroesophageal reflux disease Overview: Particles are regurgitant, some acid reflux, not much coughing Dyslipidemia documented as of this encounter (statuses as of 10/28/2023) Resolved Problems Problem Noted Date Diagnosed Date Resolved Date History of 2019 novel duff virus disease (COVID-19) 06/01/2021 06/01/2022 [...] as of this encounter (statuses as of 10/28/2023) Immunizations Name Administration Dates Next Due COVID-19 mRNA, LNP-s, No Pre serve, 2-Dose Series ([employer]) 06/11/2021,10/09/2020,09/19/2020 Covid-19, Mrna, Lnp-s, Pf, B ivalent, 30 Mcg, IM, 12 yrs and above ([employer]) 05/03/2022 H1N1 2009 Influenza, IM 06/23/2009 Pneumococcal Conjugate Vacc, 13 [...] pur e alcohol) drank alcohol once in 8 PHQ-2 Answer Date Recorded PHQ Adult Total [...] (15 years old or older) No 01/05/20 Cognitive Status Response Date of Assessm ent Because of a physical, menta l, or emotional condition, do you have serious difficulty concentrating, remembering, or making decisions? (5 years old or older) No 01/04/2019 documented as of this encounter Progress Notes * Sveta Carreon [facility] - 10/28/2023 2:05 PM EDT Telemedicine visit: No [facility] (PRECIOUS) documentation: [facility] f/u call per Nela Fischer RNCM Spoke with [place], spouse. Pt has not had any new falls. She did state that he might be agreeable to having therapy. He has been advised to have a pace maker. His spouse isn't sure if he will do the procedure. He is thinking this over. She thinks if he decides to have the pace maker he then will probably be willing to do therapy. Confirmed she has the contact information for CM documented in this encounter Plan of Treatment Upcoming Encounters Date Type Department Care Team (Late st Contact Info) Description 11/30/2023 9:20 AM EDT Office Visit NephrologyMohan 200 [facility] [place], [place] [address] Jose Winter MD [address] [facility] [place] [address] 12/06/2023 11:30 AM EDT Office Visit Cardiology, [facility] 132 [place] [address] Melyssa Cornell, [address] [place] [address] 12/26/2023 3:00 PM EDT Office Visit Cardiology, [facility] [address] Ewelina Poole PA[facility]C [facility] [address] 01/24/2024 1:30 PM EDT Office Visit Urology, [facility] 132 [place] [address] George Tran MD [address] [place] [address] [place] [address] 03/13/2024 3:00 PM EDT Cardiac Studies Cardiac Studies, [facility] 132 [place] [address] Health Maintenance Due Date Last Done Comments COLONOSCOPY-EVERY 5 YRS AGES 18-100 11/02/2022 11/02/2017, 03/05/2014, 03/05/2014, Additional history exists COVID-19 Vaccine (2022- season) 2023 05/03/2022, 06/11/2021, 10/09/2020, Additional history [...] - Td or Tdap) 02/09/2026 02/10/2016, 04/06/2010 Zoster Vaccines Completed 06/06/2019, 11/10, 02/10/2016 Pneumococcal Vaccine: 65+ Years Completed 04/02/2020, 01/23/2016, 09/15/2014, Additional history exists Influenza Vaccine (FLU shot) Completed , 04/20/2022, 04/23/2021, Additional history exists GARDASIL-HPV IMMUNIZATION SERIES Aged Out No longer eligible based on patient's age to complete this topic Hepatitis B Aged Out No longer eligi ble based on patient's age to complete this topic MENINGOCOCCAL (MENACTRA/MENVEO) Aged Out No longer eligible based on patient's age to complete this topic documented as of this encounter Medical Devices Implanted Type Area Grinding Machine Operator Portable Device Identifier Shelf Expiration Date Model / Serial / Lot Sut Steel 6 M654g - [id number] Implanted:Qty: 4 on 05/30/2014 by Stanislav Hilliard [place] [facility] [place]A: Chest JNJ : [employer] 02/07/2019 M654G / / [id number] Marker Coronary Am-Sd - [id number] Implanted:Qty: 2 on 05/30/2014 by Stanislav Hilliard [place] [facility] [place]/A: Aorta [employer] 03/10/2017 AM-[place] / / [id number] Lens Intraoc 20.5 - [id number] - [id number] Implanted:Qty: 1 on 02/18/2022 by Yandel Bowens MD at OR [facility] Left: Eye [employer] LOMB 11/07/2026 [id number] / [id number] / [id number] Lens Intraoc 21.5 - [id number] - [id number] Implanted:Qty: 1 on 03/04/2022 by Yandel Bowens MD at OR [facility] Right: Eye [employer] LOMB 10/08/2026 [id number] / [id number] / [id number] documented as of this encounter Advance Directives [...] the patient have Health Care Power of Air Control Electronics Operator? No Code Status History Code Status Date Activated Date Inactivated Comments No Code 02/18/2022 7:51 AM 02/18/2022 2:15 PM This order reflects the patients wishes and were consensually agreed upon. Question Answer Comments Discussion of Advance Directives occurred with: Patient Does the patient have a Living Will? No Does the patient have Health Care Power of Air Control Electronics Operator? No Full Code 01/04/2019 6:51 PM 01/06/2019 [...] the patient have Health Care Power of Air Control Electronics Operator? No Care Teams Farm Service Adviser Relationship Specialty Start Date End Date Angelo Vazquez MD [address] [place] [address] PCP - General Family Medicine 06/24/14 documented as of this encounter
--- OUTSIDE RECORDS SUMMARY | 2023-11-15 14:36 | External Medical Summary | Summary of Care ---
Author Name Unknown Organization [facility] Address [address] [place] [facility] [place] [place] [address] Phone [phone] Care Team Providers Care Cosmetic Account Coordinator Name Role Phone Angelo Vazquez MD Primary Care Provider + Reason for Visit * Reason Comments Outpatient Testing Encounter Details Date Type Department Care Team (Late st Contact Info) Description 10/27/2023 12:00 PM EDT Laboratory Laboratory, [facility] 132 [place] [address] [facility] 132 [place] [address] Low folic acid Allergies Active Allergy Reactions Criticality Noted Date Comments Bee Venom 12/30/2015 Iodine Other (Please comment) 08/18/2011 Pt says not to use due to shellfish allergy Morphine Anaphylaxis High 08/18/2011 Penicillins Rash 08/18/2011 Shellfish Allergy Edema airway High 08/18/2011 documented as of this encounter (statuses as of 10/27/2023) Medications Medication Sig Dispensed Refills Start Date [...] Tablet (Lipitor)Indication s:Paroxysmal atrial fibrillation (HCC),CAD in [place] artery,S/P CABG x 3 TAKE ONE TABLET BY MOUTH DAILY 90 Tablet 3 01/20/2023 01/25/2024 Active metFORMIN HCl 500 MG Oral Tablet (Glucophage)Indicat ions:Type 2 diabetes mellitus with hemoglobin A1c goal of less than 8.0% (HCC) TAKE ONE TABLET BY MOUTH DAILY 90 Tablet 3 04/21/2023 04/20/2024 Active Nitroglycerin 0.4 MG Sublingual Tablet Sublingual (Nitrostat)Indicati ons:CAD in [place] artery DISSOLVE 1 TABLET UNDER THE TONGUE [...] as of this encounter (statuses as of 10/27/2023) Active Problems Problem Noted Date Diagnosed Date [...] Mild 2014 PAF (paroxysmal atrial fibrillation) 07/14/2012 skilled nursing current use of anticoagulant therapy 0 07/14/2012 Overview: ICD-10 update of inactive term Dysthymia 11/30/2011 Coronary artery disease invo lving [place] coronary artery of [place] heart without angina pectoris Overview: 05/30/14 [place] [facility] [place] Prior: 5 stents-hx angina. Drug eluting, & bare metal. Most recent 11/18 1986 LCAD PTCA 12.04 LAD & mid circ drug eluting stents 8.08-distal RCA non drug eluting stent 11/13/10 LAD Ion drug eluting stent 01/14/11 Cardiolite EF55% no ischemia Gastroesophageal reflux disease Overview: Particles are regurgitant, some acid reflux, not much coughing Dyslipidemia documented as of this encounter (statuses as of 10/27/2023) Resolved Problems Problem Noted Date Diagnosed Date [...] as of this encounter (statuses as of 10/27/2023) Immunizations Name Administration Dates Next Due COVID-19 mRNA, LNP-s, No Pre serve, 2-Dose Series ([employer]) 06/11/2021,10/09/2020,09/19/2020 Covid-19, Mrna, Lnp-s, Pf, B ivalent, 30 Mcg, IM, 12 yrs and above ([employer]) 05/03/2022 H1N1 2009 Influenza, IM 06/23/2009 Pneumococcal [...] No 01/04/2019 documented as of this encounter Plan of Treatment Upcoming Encounters Date Type Department Care Team (Late st Contact Info) Description 11/30/2023 9:20 AM EDT Office Visit NephrologyMohan [address] [place] [address] Jose Winter MD [address] [place] [address] 12/06/2023 11:30 AM EDT Office Visit Cardiology [facility] [address] [place] [address] Melyssa Cornell DO [address] [place] [address] 12/26/2023 3:00 PM EDT Office Visit [facility], [facility] [place] [address] Ewelina Poole PA-C [address] [place] [address] 01/24/2024 1:30 PM EDT Office Visit Urology, [facility] 132 [facility] [place] [address] George Tran MD [address] [facility] [address] [place] [address] 03/13/2024 3:00 PM EDT Cardiac Studies Card[facility] Studies, [facility] [place] [address] Pending Results Name Type Priority Associated Diagnoses Date /Time FOLIC ACID Lab Routine Low folic acid 10/27/2023 12:06 PM EDT Health Maintenance Due Date Last Done Comments [...] this encounter Medical Devices Implanted Type Area Transition Nurse Device Identifier Shelf Expiration Date Model / Serial / Lot Sut Steel 6 M654g - [id number] Implanted:Qty: 4 on 05/30/2014 by Stanislav [place]ard [place] [facility] [place]: Chest JNJ : [employer] 02/07/2019 M654G / / [id number] Marker Coronary Am-Sd - [id number] Implanted:Qty: 2 on 05/30/2014 by Stanislav Hilliard [place] [facility]A: Aorta [employer] 03/10/2017 [facility] / / [id number] Lens Intraoc 20.5 - [id number] - [id number] Implanted:Qty: 1 on 02/18/2022 by Yandel Bowens MD at OR [facility] Left: Eye [employer] LOMB 11/07/2026 [id number] / [id number] / [id number] Lens Intraoc 21.5 - [id number] - [id number] Implanted:Qty: 1 on 03/04/2022 by Yandel Bowens MD at OR [facility] Right: Eye [employer] LOMB 10/08/2026 [id number] / [id number] / [id number] documented as of this encounter Visit Diagnoses Diagnosis Low folic acid documented in this encounter Advance Directives Latest Code Status on File Code Status Date Activated Date Inactivated Comments No Code 03/04/2022 8:43 AM 03/04/2022 2:28 PM This order reflects the patients wishes and were consensually agreed upon. Question Answer Comments Discussion of Advance Directives occurred with: Patient Does the patient have a Living Will? No Does the patient have Health Care Power of Aircraft Manager? No Code Status History Code Status Date Activated Date Inactivated Comments No Code 02/18/2022 7:51 AM 02/18/2022 2:15 PM This order reflects the patients wishes and were consensually agreed upon. Question Answer Comments Discussion of Advance Directives occurred with: Patient Does the patient have a Living Will? No Does the patient have Health Care Power of Aircraft Manager? No Full Code 01/04/2019 6:51 PM 01/06/2019 [...] the patient have Health Care Power of Aircraft Manager? No Care Teams Cosmetic Account Coordinator Relationship Specialty Start Date End Date Angelo Vazquez MD [address] [facility] [place] [address] PCP - General Family Medicine 06/24/14 documented as of this encounter
--- OUTSIDE RECORDS SUMMARY | 2023-11-15 14:36 | External Medical Summary | Summary of Care ---
Author Name Unknown Organization [facility] Address [address] [place] [address] Phone [phone] Care Team Providers Care Lead Producer Name Role Phone Angelo Vazquez MD Primary Care Provider + Reason for Visit * Reason Onset Date Comments Advice 11/09/2023 Encounter Details Date Type Department Care Team (Late st Contact Info) Description 11/09/2023 Telephone Cardiology, [place] [address] [facility] [place] [address] Melyssa Cornell Jia, [address] [place] [address] Advice Allergies Active Allergy Reactions Criticality Noted Date Comments Bee Venom 12/30/2015 Iodine Other (Please comment) 08/18/2011 Pt says not to use due to shellfish allergy Morphine Anaphylaxis High 08/18/2011 Penicillins Rash 08/18/2011 Shellfish Allergy Edema airway High 08/18/2011 documented as of this encounter (statuses as of 11/11/2023) Medications Medication Sig Dispensed Refills Start Date [...] Tablet (Lipitor)Indication s:Paroxysmal atrial fibrillation (HCC),CAD in [place] artery,S/P CABG x 3 TAKE ONE TABLET BY MOUTH DAILY 90 Tablet 3 01/20/2023 01/25/2024 Active metFORMIN HCl 500 MG Oral Tablet (Glucophage)Indicat ions:Type 2 diabetes mellitus with hemoglobin A1c goal of less than 8.0% (HCC) TAKE ONE TABLET BY MOUTH DAILY 90 Tablet 3 04/21/2023 04/20/2024 Active Nitroglycerin 0.4 MG Sublingual Tablet Sublingual (Nitrostat)Indicati ons:CAD in [place] artery DISSOLVE 1 TABLET UNDER THE TONGUE [...] as of this encounter (statuses as of 11/11/2023) Active Problems Problem Noted Date Diagnosed Date [...] Mild 2014 PAF (paroxysmal atrial fibrillation) 07/14/2012 [facility]ent[facility] current use of anticoagulant therapy 0 07/14/2012 Overview: ICD-10 update of inactive term Dysthymia 11/30/2011 Coronary artery disease invo lving q[place] coronary artery of q[place] heart without angina pectoris Overview: 05/30/14 3V CABG [facility]. Prior: 5 stents-hx angina. Drug eluting, & bare metal. Most recent 11/18 1986 LCAD PTCA 12.04 LAD & mid circ drug eluting stents 8.08-distal RCA non drug eluting stent 11/13/10 LAD Ion drug eluting stent 01/14/11 Cardiolite EF55% no ischemia Gastroesophageal reflux disease Overview: Particles are regurgitant, some acid reflux, not much coughing Dyslipidemia documented as of this encounter (statuses as of 11/11/2023) Resolved Problems Problem Noted Date Diagnosed Date [...] as of this encounter (statuses as of 11/11/2023) Immunizations Name Administration Dates Next Due COVID-19 mRNA, LNP-s, No Pre serve, 2-Dose Series ([facility]) 06/11/2021,10/09/2020,09/19/2020 Covid-19, Mrna, Lnp-s, Pf, B ivalent, 30 Mcg, IM, 12 yrs and above ([facility]) 05/03/2022 H1N1 2008 Influenza, IM 06/23/2009 Pneumococcal [...] 9:04 AM EDT Sexual Orientation Straight 12/03/2022 9 :04 AM EDT Job Start Date Occupation Industry [...] with Pt, asked that information sent over [employer]/pt portal. Reminded to come in and pick up driver chlorhexidine soap. agreed. * Telephone Encounter - Tessy Jones LPN - 11/11/2023 3:28 PM EDT ELECTROPHYSIOLOGY PACEMAKER/ICD INSTRUCTIONS Please arrive at [facility] via the Main Entrance and check in [...] your procedure in our Device Clinic in [facility]. Important Instructions Your surgical site is NOT [...] not hesitate to call the office at [phone] Preventing skin infections after surgery handout given * Telephone Encounter - Tessy Jones LPN - 11/11/2023 10:11 AM EDT LMOM to set up procedure. Transfer to [facility] Cardiology on return call. * Telephone Encounter [...] to patient: spouse Number to return call: [phone] Reason for call: Savannah calling in stating [...] Description 11/30/2023 9:20 AM EDT Office Visit Nephrology, Mohan Kemp [address] [place] [address] Jose Winter MD [address] [facility] [place] [address] 12/06/2023 11:30 AM EDT Office Visit [facility], [facility] [address] Melyssa Cornell, [address] [facility] [place] [address] 12/26/2023 3:00 PM EDT Office Visit Cardiology, [facility] [address] [facility] [place] [address] Ewelina Poole PA-C [address] [facility] [place] [address] 01/24/2024 1:30 PM EDT Office Visit Urology, [facility] [address] [facility] [place] [address] George Tran MD [address] [place] [address] [place] [address] 03/13/2024 3:00 PM EDT Cardiac Studies Cardiac Studies, [facility] [address] [facility] [address] Scheduled Orders Name Type Priority Associated Diagnoses [...] this encounter Medical Devices Implanted Type Area Highway Patrol Officer Device Identifier Shelf Expiration Date Model / Serial / Lot Sut Steel 6 [id number] - [id number] Implanted:Qty: 4 on 05/30/2014 by Stanislav Hilliard MD at [place] [facility] N/A: Chest JNJ : [employer] 02/07/2019 [id number] / / [id number] [facility] - [id number] Implanted:Qty: 2 on 05/30/2014 by Stanislav Hilliard MD at [place] [facility] N/A: Aorta [employer] 03/10/2017 [facility] / / [id number] Lens Intraoc 20.5 - [id number] - [id number] Implanted:Qty: 1 on 02/18/2022 by Yandel Bowens MD at OR [facility] Left: Eye [employer] 11/07/2026 [id number] / [id number] / [id number] Lens Intraoc 21.5 - [id number] - [id number] Implanted:Qty: 1 on 03/04/2022 by Yandel Bowens MD at OR [facility] Right: Eye [employer] 10/08/2026 [id number] / [id number] / [id number] documented as of this encounter Visit Diagnoses Diagnosis Tachy-santy syndrome (HCC)- Primary Sinoatrial node dysfunction Pre-op testing Preoperative examination, unspecified PAF (paroxysmal atrial fibrillation) ([facility]) Atrial fibrillation Chronic heart failure with preserved ejection fraction ([facility]) documented in this encounter Advance Directives Latest Code Status on File Code Status Date Activated Date Inactivated Comments No Code 03/04/2022 8:43 AM 03/04/2022 2:28 PM This order reflects the patients wishes and were consensually agreed upon. Question Answer Comments Discussion of Advance Directives occurred with: Patient Does the patient have a Living Will? No Does the patient have Health Care Power of Senior Mechanical Estimator? No Code Status History Code Status Date Activated Date Inactivated Comments No Code 02/18/2022 7:51 AM 02/18/2022 2:15 PM This order reflects the patients wishes and were consensually agreed upon. Question Answer Comments Discussion of Advance Directives occurred with: Patient Does the patient have a Living Will? No Does the patient have Health Care Power of Senior Mechanical Estimator? No Full Code 01/04/2019 6:51 PM 01/06/2019 [...] the patient have Health Care Power of Senior Mechanical Estimator? No Care Teams Lead Producer Relationship Specialty Start Date End Date Angelo Vazquez MD [address] [place] [address] PCP - General Family Medicine 06/24/14 documented as of this encounter
--- OUTSIDE RECORDS SUMMARY | 2023-11-15 14:36 | External Medical Summary ---
Author Name Unknown Address Unknown Organization K01:[facility] [place] - [address] [place] [address] Laboratory Report Ordering Provider Test Date Status ANALI CHASE 10/27/2023 12:06:04 Final Observation Date Value Abnormality Reference (Units ) Status Folic Acid 10/27/2023 12:06:04 13.0 >4.5 (ng/ mL) Final Performing Location LAB[facility]ATORY [facility] - [address] [place] [address]
--- OUTSIDE RECORDS SUMMARY | 2023-11-15 14:36 | External Medical Summary | Summary of Care ---
Author Name Unknown Organization [facility] Address [address] [place] [address] Phone [phone] Care Team Providers Care Tool Clerk Name Role Phone Angelo Vazquez MD Primary Care Provider + Reason for Visit * Reason Comments Consultation Encounter Details Date Type Department Care Team (Late st Contact Info) Description 10/18/2023 10:15 AM EDT Office Visit Cardiology, [facility] [address] [facility] [place] [id number] Melyssa Cornell, [address] [facility] [place] [id number] Tachy-santy syndrome (HCC)*; PAF (paroxysmal atrial fibrillation) (HCC); Chronic heart failure with preserved ejection fraction (HCC) Allergies Active Allergy Reactions Criticality Noted Date Comments Bee Venom 12/30/2015 Iodine Other (Please comment) 08/18/2011 Pt says not to use due to shellfish allergy Morphine Anaphylaxis High 08/18/2011 Penicillins Rash 08/18/2011 Shellfish Allergy Edema airway High 08/18/2011 documented as of this encounter (statuses as of 11/02/2023) Medications Medication Sig Dispensed Refills Start Date End Date Status TYLENOL ARTHRITIS PAIN 650 MG PO TBCR 2 TABLETS EVERY 8 HOURS NEEDED 60 Tab 5 5 Active FLONASE 50 MCG/ACT NA SUSPIndications:N abdiaziz erythema Administer into nostril. 1 Bottle 2 5 Active Ca Carbonate-Mag Hydroxide 550-110 MG Oral Tablet Chewable Take by mouth. 0 Active Aspirin 81 MG Oral Tablet Delayed Release Take 1 Tablet by mouth in the morning. 0 Active Vitron-C 65-125 MG Oral Tablet (Iron-Vitamin C 65-125 mg per tab)Indications:I marty deficiency anemia Take 1 Tablet by mouth in the morning. 0 3 Active Levothyroxine Sodium 50 MCG Oral Tablet (Levoxyl) TAKE ONE TABLET BY MOUTH IN THE MORNING AT LEAST 30 MINUTES PRIOR TO BREAKFAST OR OTHER MEDS 90 Tablet 3 3 11/27/19 24 Active Atorvastatin Calcium 80 MG Oral Tablet (Lipitor)Indicati ons:Paroxysmal atrial fibrillation (HCC),CAD in wiyot artery,S/P CABG x 3 TAKE ONE TABLET BY MOUTH DAILY 90 Tablet 3 3 01/25/20 24 Active metFORMIN HCl 500 MG Oral Tablet (Glucophage)Indic ations:Type 2 diabetes mellitus with hemoglobin A1c goal of less than 8.0% (HCC) TAKE ONE TABLET BY MOUTH DAILY 90 Tablet 3 3 04/20/20 24 Active Nitroglycerin 0.4 MG Sublingual Tablet Sublingual (Nitrostat)Indica tions:CAD in wiyot artery DISSOLVE 1 TABLET UNDER THE TONGUE NEEDED FOR CHEST PAIN, MAY REPEAT EVERY 5 MINUTES FOR 3 TOTAL DOSES 25 Tablet 3 3 Active Finasteride 5 MG Oral Tablet (Proscar) Take 1 Tablet by mouth in the morning. 90 Tablet 3 4 Active Diclofenac Sodium 1 % External Gel (Voltaren)Indicat ions:Chronic left-sided low back pain without sciatica Apply topically to affected area 4 times a day. Apply to lumbar 300 g 1 4 Active Potassium Chloride ER 20 MEQ Oral Tablet Extended Release take 1 tablet (20 mEq) by mouth daily 30 Tablet 5 4 Active Apixaban 5 MG Oral Tablet (Eliquis) Take 1 tablet (5 mg) by mouth every 12 hours 60 Tablet 5 4 Active Pantoprazole Sodium 40 MG Oral Tablet Delayed Release (Protonix)Indicat ions:Gastroesopha geal reflux disease without esophagitis TAKE 1 TABLE BY MOUTH 30 MINUTES BEFORE THE FIRST MEAL OF THE DAY. DO NOT CRUSH, SPLIT OR CHEW THE TABLET. 90 Tablet 3 4 08/18/19 25 Active tiZANidine HCl 4 MG Oral Tablet (Zanaflex) Take 1 Tablet by mouth in the morning and 1 Tablet before bedtime. 60 Tablet 1 4 Active Escitalopram Oxalate 10 MG Oral Tablet (Lexapro)Indicati ons:Mild episode of recurrent major depressive disorder (HCC) Take 1 Tablet by mouth in the morning. 90 Tablet 3 4 Active Furosemide 40 MG Oral Tablet (Lasix) Take 1 Tablet by mouth in the morning. 30 Tablet 2 4 Active Sodium Chloride 1 GM Oral Tablet Take 1 Tablet by mouth in the morning. 30 Tablet 3 3 10/18/19 24 Discontinued Metoprolol Succinate ER 25 MG Oral Tablet Extended Release 24 Hour (toPROL XL) TAKE ONE TABLET BY MOUTH DAILY 90 Tablet 1 3 10/26/19 24 Discontinued(Ref ill) documented as of this encounter (statuses as of 11/02/2023) Active Problems Problem Noted Date Diagnosed Date [...] Mild 2014 PAF (paroxysmal atrial fibrillation) 07/14/2012 group home current use of anticoagulant therapy 0 07/14/2012 Overview: ICD-10 update of inactive term Dysthymia 11/30/2011 Coronary artery disease invo lving wiyot coronary artery of wiyot heart without angina pectoris Overview: 05/30/14 3V CABG [facility]. Prior: 5 stents-hx angina. Drug eluting, & bare metal. Most recent 11/18 1986 LCAD PTCA 12.04 LAD & mid circ drug eluting stents 8.08-distal RCA non drug eluting stent 11/13/10 LAD Ion drug eluting stent 01/14/11 Cardiolite EF55% no ischemia Gastroesophageal reflux disease Overview: Particles are regurgitant, some acid reflux, not much coughing Dyslipidemia documented as of this encounter (statuses as of 11/02/2023) Resolved Problems Problem Noted Date Diagnosed Date Resolved Date History of 2019 novel duff virus disease (COVID-19) 06/01/2021 06/01/2022 Overview: 05/2021 vax x2? DM kidney disease 01/09/2019 02/08/2023 Leg mass 03/31/2016 06/07/2023 Overview: 04/25 cystic on US-silva [place] Dermatitis 07/24/2014 06/07/2023 Regurgitation and rechewing 06/27/2014 [...] as of this encounter (statuses as of 11/02/2023) Immunizations Name Administration Dates Next Due COVID-19 mRNA, LNP-s, No Pre serve, 2-Dose Series ([employer]) 06/11/2021,10/09/2020,09/19/2020 Covid-19, Mrna, Lnp-s, Pf, B ivalent, 30 Mcg, IM, 12 yrs and above (Pfizer) 05/03/2022 H1N1 2009 Influenza, IM 06/23/2009 Pneumococcal [...] on file documented as of this encounter Last Filed Vital Signs Vital Sign Reading Time Taken Comments Blood Pressure 144/82 10/18/2023 10:46 AM EDT Pulse 68 10/18/2023 10:46 AM EDT Temperature - - Respiratory Rate 14 10/18/2023 10:46 AM EDT Oxygen Saturation - - Inhaled Oxygen Concentration - - Weight 87.5 kg (193 lb) 10/18/2023 10:46 AM EDT Height - - Body Mass Index 25.46 06/07/2023 10:00 AM EST documented in this encounter Functional Status Functional Status Response [...] No 01/04/2019 documented as of this encounter Patient Instructions * Patient Instructions* Melyssa Cornell DO - 10/18/2023 11:08 AM EDT PACE/[facility]ET Prescription Assistance Program (Program of All-Inclusive Care for the Elderly) [facility] prescription assistance programs for older adults offer low-cost prescription medication to qualified residents, age 65 and older. This is a free program. There is no cost to apply. Call to apply. If you do not qualify, please reach out to our office so we can investigate other options for you. PACE Income Limits: Single: $33,500 : $41,500 documented in this encounter Progress Notes * Melyssa Cornell DO - 10/18/2023 10:59 AM EDT Subjective Srini Ch is a 88 year old male. Chief Complaint Patient presents with Consultation Pt referred to EP due to abnormal zio patch Referring Provider: Dr. Middleton Cardiac Problems: TBS Sinus pauses pAF on eliquis [id number] (age, CAD, DM, HTN) HTN Chronic heart failure with with preserved EF, NYHA Class II CAD s/p CABG x3 RHODES-LAD, SVG-OM and SVG-PDA; all patent on cath in 09/2018 HLD 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 DM HPI: Pt presents with his and grandson today Pt recently wore a zio patch that revealed sinus pausess and atrial flutter and TBS He tells his often that his legs are very week; he has passed out as per his the pt denies any of these symptoms-he does get tired when he takes the back pills. He maybe had a syncopal episode about a month ago. PMH: Patient Active Problem List Diagnosis Code Coronary artery disease involving wiyot coronary artery of wiyot heart without angina pectoris I25.10 Gastroesophageal reflux disease K21.9 Dyslipidemia E78.5 Dysthymia F34.1 PAF (paroxysmal atrial fibrillation) ([facility]) I48.0 group home current use of anticoagulant therapy Z79.01 Diabetic retinopathy ([facility]) E11.319 Aortocoronary bypass status Z95.1 Type 2 diabetes mellitus with hemoglobin A1c goal of less than 8.0% ([facility]) E11.9 S/P CABG x 3 Z95.1 Dry eyes H04.123 Hyponatremia E87.1 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 S/P lumbar spinal fusion Z98.1 Left renal mass N28.89 Dyslipidemia, goal LDL below 70 E78.5 BPH with obstruction/lower urinary tract symptoms N40.1, 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) ([facility]) E22.2 Acquired hypothyroidism E03.9 Mild episode of recurrent major depressive disorder ([facility]) F33.0 Age-related cataract of both eyes H25.9 HTN, goal below 140/90 I10 Nonrheumatic aortic valve stenosis I35.0 Dyspnea on exertion R06.09 Spinal stenosis of lumbar region with neurogenic claudication M48.062 Medical home patient encounter Z00.8 Renal cyst, acquired, left N28.1 Urge incontinence N39.41 Chronic systolic heart failure ([facility]) I50.22 DM kidney disease ([facility]) E11.21 Current Outpatient Medications Medication Sig Dispense Refill TYLENOL ARTHRITIS PAIN 650 MG PO TBCR 2 TABLETS EVERY 8 HOURS NEEDED 60 Tab 5 FLONASE 50 MCG/ACT NA SUSP Administer into nostril. 1 Bottle 2 Aspirin 81 MG Oral Tablet Delayed Release Take 1 Tablet by mouth in the morning. Vitron-C 65-125 MG Oral Tablet (Iron-Vitamin C 65-125 mg per tab) Take 1 Tablet by mouth in the morning. Levothyroxine Sodium 50 MCG Oral Tablet (Levoxyl) TAKE ONE TABLET BY MOUTH IN THE MORNING AT LEAST 30 MINUTES PRIOR TO BREAKFAST OR OTHER MEDS 90 Tablet 3 Atorvastatin Calcium 80 MG Oral Tablet (Lipitor) TAKE ONE TABLET BY MOUTH DAILY 90 Tablet 3 metFORMIN HCl 500 MG Oral Tablet (Glucophage) TAKE ONE TABLET BY MOUTH DAILY 90 Tablet 3 Metoprolol Succinate ER 25 MG Oral Tablet Extended Release 24 Hour (toPROL XL) TAKE ONE TABLET BY MOUTH DAILY 90 Tablet 1 Nitroglycerin 0.4 MG Sublingual Tablet Sublingual (Nitrostat) DISSOLVE 1 TABLET UNDER THE TONGUE ASNEEDED FOR CHEST PAIN, MAY REPEAT EVERY 5 MINUTES FOR 3 TOTAL DOSES 25 Tablet 3 Finasteride 5 MG Oral Tablet (Proscar) Take 1 Tablet by mouth in the morning. 90 Tablet 3 Diclofenac Sodium 1 % External Gel (Voltaren) Apply topically to affected area 4 times a day. Applyto lumbar 300 g 1 Potassium Chloride ER 20 MEQ Oral Tablet Extended Release take 1 tablet (20 mEq) by mouth daily 30 Tablet 5 Apixaban 5 MG Oral Tablet (Eliquis) Take 1 tablet (5 mg) by mouth every 12 hours 60 Tablet 5 Pantoprazole Sodium 40 MG Oral Tablet Delayed Release (Protonix) TAKE 1 TABLE BY MOUTH 30 MINUTES BEFORE THE FIRST MEAL OF THE DAY. DO NOT CRUSH, SPLIT OR CHEW THE TABLET. 90 Tablet 3 tiZANidine HCl 4 MG Oral Tablet (Zanaflex) Take 1 Tablet by mouth in the morning and 1 Tablet before bedtime. 60 Tablet 1 Escitalopram Oxalate 10 MG Oral Tablet (Lexapro) Take 1 Tablet by mouth in the morning. 90 Tablet 3 Furosemide 40 MG Oral Tablet (Lasix) Take 1 Tablet by mouth in the morning. 30 Tablet 2 Ca Carbonate-Mag Hydroxide 550-110 MG Oral Tablet Chewable Take by mouth. No current facility-administered medications for this visit. Past Medical History: Diagnosis Date Angina pectoris syndrome (HCC) Arthritis Benign neoplasm of colon 03/05/2014 adenomatous polyp, repeat 5 yrs CAD in wiyot artery Diabetes type 2, controlled ([facility]) HbA1c < 7, no medication. Diverticulosis of colon (without mention of hemorrhage) 03/05/2014 sigmoid colon Dyslipidemia Dysthymia 11/30/2011 GERD (gastroesophageal reflux disease) Particles are regurgitant, some acid reflux, not much coughing History of 2019 novel coronavirus disease (COVID-19) 06/01/202105/2021 vax x2? Nocturia Regurgitation and rechewing 06/27/2014 S/P CABG x 3 09/28/2014 S/P lumbar spinal fusion 09/20/201709/25 Dr Harrell L2-4 posterior fusion SIADH (syndrome of inappropriate ADH production) ([facility]) 09/03/2020 Due to high fluid PO intake. Type 2 diabetes mellitus with hemoglobin A1c goal of less than 8.0% ([facility]) 09/26/2014 ICD-10 update of inactive term Past Surgical History: Procedure Laterality Date ARTHROPLASTY KNEE TOTAL 2008 (?) Left knee injury with surgery in 1968, arthritis before surgery [place] ANGIOPLASTY;SINGLE 52 years old BYPASS GRAFT ANGIOGRAPHY W/LEFT HEART CATH Right 01/05/2019 BYPASS GRAFT ANGIOGRAPHY W/LEFT HEART CATH performed by Mouna Castro MD at CARDIAC LABS [facility] CABG, ARTERIAL, SINGLE N/A 05/30/2014 CORONARY ARTERY BYPASS GRAFT USING ARTERY 1 GRAFT performed by Stanislav Hilliard MD at OR [facility] CABG, ARTERIAL, THREE 05/30/14 (3v, not 1v) CARPAL TUNNEL SURGERY Bilateral 03/2017 Dr Hanna COLONOSCOPY, DIAGNOSTIC (RECTUM) 03/05/2014 adenomatous polyp, diverticulosis, repeat 5 yrs/COLONOSCOPY FLEXIBLE PROXIMAL DIAGNOSTIC performed by Mason Wilkes MD at ENDOSCOPY [facility] COLONOSCOPY, DIAGNOSTIC (RECTUM) 11/02/2017 adenomatous polyp / [facility] EGD, FLEXIBLE, DIAGNOSTIC 03/05/2014 normal/ESOPHAGOGASTRODUODENOSCOPY (EGD), FLEXIBLE, TRANSORAL, DIAGNOSTIC performed by Mason Wilkes MD at ENDOSCOPY [facility] EGD, FLEXIBLE, DIAGNOSTIC 11/02/2017 normal bx / [facility] LUMBAR SPINE FUSION, POST INTERBODY 09/15/2017 Dr [email or web address]. L2-4 fusion. transverse fusion/bone. PATIENT EDU, LUMBAR MICRODISCECTOMY 1991 still has intermittent lower right back pain, does not radiate beyond the hip REMOVE CATARACT, INSERT LENS PROSTH Left 02/18/2022 LEFT EXTRACAPSULAR CATARACT REMOVAL WITH INTRAOCULAR LENS performed by Yandel Bowens MD at OR [facility] REMOVE CATARACT, INSERT LENS PROSTH Right 03/04/2022 RIGHT EXTRACAPSULAR CATARACT REMOVAL WITH INTRAOCULAR LENS performed by Yandel Bowens MD at [facility] STENT, COATED/COVERED, WITH DELIVERY SYSTEM Last one was 11/23/10 total of 5 stents, 2 MARIBEL (06/13) and 1 BMS (11/23/10) TOTAL HIP REPLACEMENT & PROSTHESIS December 22 2009 right hip due to arthritis. In [place]. Review of patient's allergies indicates: Allergen Reactions Morphine Anaphylaxis Shellfish Allergy Edema airway Bee Venom Iodine Other (Please comment) Pt says not to use due to shellfish allergy Penicillins Rash Family History Problem Relation Age of Onset Alzheimer's disease Mother 70 Heart Disorder Father 50 smoked heavy. Alzheimer's disease Sister 73 Other (lewy body dementia) Brother 71 Parkinsonism Brother Parkinsonism Brother Other ( old age) Brother Alzheimer's disease Grandmother (Maternal) No Past Hx Daughter No Past Hx Son No Past Hx Son No Past Hx Son Parkinsonism Uncle (Maternal) Parkinsonism Uncle (Maternal) Eye Problems No significant family history Family Status Relation Status Mo at age 76 Picks Disease Fa at age 75 [place] Sis Alive Bro Alive Parkinsons Bro Alive Bro MGMA Destiny (Not Specified) Son (Not Specified) Son (Not Specified) Son (Not Specified) MUNC (Not Specified) MUNC (Not Specified) No history (Not Specified) Social History Socioeconomic History Marital status: Spouse name: Rebecca Number of children: 4 Years of education: Associates Highest education level: Not on file Occupational History 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 Negative for activity change, chills, fever and unexpected weight change. HENT: Negative for postnasal drip, rhinorrhea and sinus pressure. Eyes: Negative for visual disturbance. Respiratory: Negative for shortness of breath. Cardiovascular: Negative for chest pain, palpitations and leg swelling. Gastrointestinal: Negative for blood in stool, constipation, diarrhea, nausea and vomiting. Genitourinary: Negative for dysuria and hematuria. Musculoskeletal: Positive for back pain and gait problem. Skin: Negative for rash. Neurological: Positive for dizziness, weakness and light-headedness. Negative for syncope. Objective BP 144/82 | Pulse 68 | Resp 14 | Wt 87.5 kg (193 lb) | BMI 25.46 kg/m | BSA 2.12 m Physical Exam Vitals and nursing note reviewed. Constitutional: General: He is awake. Appearance: Normal appearance. He is well-developed. HENT: Head: Normocephalic and atraumatic. Eyes: General: No scleral icterus. Extraocular Movements: Extraocular movements intact. Neck: Vascular: Normal carotid pulses. No carotid bruit or JVD. Cardiovascular: Rate and Rhythm: Normal rate and regular rhythm. Pulses: Carotid pulses are 2+ on the right side and 2+ on the left side. Radial pulses are 2+ on the right side and 2+ on the left side. Posterior tibial pulses are 2+ on the right side and 2+ on the left side. Heart sounds: S1 normal and S2 normal. Murmur heard. Pulmonary: Effort: Pulmonary effort is normal. Breath sounds: Normal breath sounds. No decreased breath sounds, wheezing, rhonchi or rales. Abdominal: General: Abdomen is flat. Palpations: Abdomen is soft. Musculoskeletal: Cervical back: Neck supple. Right lower leg: No edema. Left lower leg: No edema. Skin: General: Skin is warm and dry. Neurological: General: No focal deficit present. Mental Status: He is alert and oriented to person, place, and time. Psychiatric: Attention and Perception: Attention normal. Mood and Affect: Mood normal. Speech: Speech normal. Behavior: Behavior normal. Behavior is cooperative. Thought Content: Thought content normal. Cognition and Memory: Cognition normal. Judgment: Judgment normal. RESULTS: Zio Patch: 09/27/2023: CONCLUSIONS: Preliminary Findings Prepared by Eleazar Martinez, MOY 10/13/23 Patient had a min HR of 31 bpm, max HR of 207 bpm, and avg HR of 61 bpm. Predominant underlying rhythm was Sinus Rhythm. First Degree AV Block was present. 2 Ventricular Tachycardia runs occurred, the run with the fastest interval lasting 4 beats with a max rate of 207 bpm, the longest lasting 5 beats with an avg rate of 125 bpm. Atrial Flutter occurred(36% burden), ranging from 31-144 bpm (avg of 62 bpm), the longest lasting 4 days 23 hours with an avg rate of 62 bpm. 24 Pauses occurred, the longest lasting 3.7 secs (16 bpm). Atrial Flutter was detected within +/- 45 seconds of symptomatic patient event(s). Isolated SVEs were occasional (1.3%, [id number]), SVE Couplets were rare (<1.0%, 757), and SVE Triplets were rare (<1.0%, 124). Isolated VEs were rare (<1.0%, 9875), VE Couplets were rare (<1.0%, 104), and VE Triplets were rare (<1.0%, 1). Ventricular Bigeminy and Trigeminy were present. MD notification criteria for Pauses met - report posted prior to notification per account request (DR). 06/01/2022: CONCLUSIONS: Final Interpretation : Indication: Syncope Duration: 13 days, 20 hours Patient had a min HR of 51 bpm, max HR of 138 bpm, and avg HR of 70 bpm. Predominant underlying rhythm was Sinus Rhythm. First Degree AV Block was present. 1 run of Ventricular Tachycardia occurred lasting 5 beats with a max rate of 138 bpm (avg 108 bpm). 31 Supraventricular Tachycardia runs occurred, the run with the fastest interval lasting 4 beats with a max rate of 121 bpm, the longest lasting 12 beats with an avg rate of 91 bpm. Isolated SVEs were rare (<1.0%), SVE Couplets were rare (<1.0%), and SVE Triplets were rare (<1.0%). Isolated VEs were frequent (13.4%, [id number]), VE Couplets were rare (<1.0%, 2542), and VE Tripletswere rare (<1.0%, 104). Ventricular Bigeminy and Trigeminy were present. Reported runs of supraventricular tachycardia represent paroxysmal atrial fibrillation. Frequent ventricular ectopy recorded. Rare symptoms correlate with sinus rhythm and ventricular ectopy. Echocardiogram: 09/05/2023: The qualitative LV ejection fraction is 50-54% (normal). The left ventricular cavity size is normal. The LV wall thickness is mildly increased (concentric). The left atrium is severely enlarged (>48 ml/m^2,). The right atrium is mildly enlarged. The left ventricular diastolic function is mildly abnormal (grade I). The aortic valve is moderately calcified. Moderate to severe aortic stenosis Mild aortic valve regurgitation is present. Mild mitral regurgitation is present. Mild tricuspid regurgitation is present. 07/19/2022: The LV wall thickness is mildly increased (concentric). The left ventricular wall motion is normal. Calculated LV ejection Fraction = 56% (three dimensional volumes). The left atrium is severely enlarged. The right atrium is mildly enlarged. The left ventricular diastolic function is moderately abnormal (grade II). Mild to moderate aortic stenosis is present. Trace aortic regurgitation is present. Mild mitral regurgitation is present. Mild tricuspid regurgitation is present. The aortic root is mildly enlarged, 4 cm. The proximal ascending thoracic aorta is mildly enlarged, 4.1 cm. Compared to the report of the prior study dated 05/26/2021, the proximal ascending aorta diameter is relatively stable without significant interval change. The severity of the aortic stenosis has progressed, mild to moderate aortic stenosis is now present as compared to mild aortic stenosis. ECGS: 08/23/2023: SR 66bpm 1st degree AV block T wave abnormalities Prolonged QTc 461ms 06/07/2023: SB 59bpm With marked SA 1st degree AV block 05/30/2023: SB 51bpm 1st degree AV block 03/22/2023: SR 60bpm 1st degree AV block APC QTc 466ms 11/29/2022: SR 66bpm 1st degree AV block QTc 494ms 06/01/2022: SB 57bpm 1st degree AV block 06/17/2021: Ectopic atrial rhythm 61bpm Cardiac Catheterization: 01/06/2019: RHODES-LAD, SVG-OM and SVG-PDA grafts are all patent.There is a 95% lesion in the apical LAD, distal to RHODES-LAD anastomosis. This is the area that corresponded to abnormal perfusion on nuclear stress test. However, this is a small vessel and not amenable to PCI. Recommend medical management.There melisa 70% lesion in the 1st Marginal distal to SVG-OM graft anastomosis. No abnormal perfusion in this area on nuclear stress test.Occluded wiyot arteries including ostial PDA, mid LCx and mid LAD. Lab Work Reviewed: Component Latest Ref Rng 10/06/2022 08/03/2023 09/27/2023 WBC 4.00 - 10.80 K/uL 5.79 Neutrophils % 40.0 - 75.0 % 52.8 Lymphocytes % 18.0 - 42.0 % 26.4 Monocytes % 1.0 - 11.0 % 12.1 (H) Eosinophils % 0.0 - 6.0 % 7.9 (H) Basophils % 0.0 - 2.0 % 0.5 Immature Granulocytes % 0.0 - 2.0 % 0.3 Absolute Neutrophils 1.80 - 7.70 K/uL 3.05 Absolute Lymphocytes 1.00 - 4.80 K/ul 1.53 Absolute Monocytes 0.00 - 1.10 K/uL 0.70 Absolute Eosinophils 0.00 - 0.70 K/uL 0.46 Absolute Basophils 0.00 - 0.20 K/uL 0.03 Absolute Immature Granulocytes 0.00 - 0.20 K/uL 0.02 WBC 4.00 - 10.80 K/uL 5.79 RBC 4.50 - 5.25 M/uL 3.87 HGB 14.0 - 16.8 g/dL 12.0 (L) HCT 40.0 - 48.4 % 35.5 (L) MCV 82.0 - 99.5 fL 91.7 MCH 27.0 - 34.0 pg 31.0 MCHC 32.0 - 36.0 g/dL 33.8 RDW 11.5 - 15.5 % 15.0 PLT 140 - 400 K/uL 161 MPV 6.6 - 11.1 fL 9.1 nRBCs <=0 /100 WBCs 0 BUN 6 - 20 mg/dL 17 Creatinine 0.6 - 1.2 mg/dL 0.9 Estimated Glomerular Filtration Rate >=60 mL/min 84 Sodium 135 - 146 mmol/L 128 (L) Potassium 3.5 - 5.1 mmol/L 5.0 Chloride 98 - 107 mmol/L 92 (L) CO2 22 - 32 mmol/L 23 Anion Gap 7 - 15 mmol/L 13 Glucose 70 - 120 mg/dL 98 Calcium 8.4 - 10.2 mg/dL 9.7 Triglycerides <=174 mg/dL 101 Cholesterol <200 mg/dL 90 HDL Cholesterol >39 mg/dL 41 Non-HDL Cholesterol <=159 mg/dL 49 LDL Cholesterol <=129 mg/dL 29 Iron 45 - 176 ug/dL 98 Iron Binding Capacity 250 - 425 ug/dL 288 Transferrin Saturation Percent 15 - 55 % 34 Hemoglobin A1C 4.0 - 5.6 % 6.3 (H) Estimated Average Glucose <126 mg/dL 134 (H) Ferritin 30 - 400 ng/mL 434 (H) TSH 0.27 - 4.20 uIU/mL 2.80 ASSESSMENT: TBS Sinus pauses pAF on eliquis [id number] 5 (age, CAD, DM, HTN) 1st degree AV block HTN Chronic heart failure with preserved EF, NYHA Class II CAD s/p CABG x3 RHODES-LAD, SVG-OM and SVG-PDA; all patent on cath in 09/2018 HLD 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 DM H/o spinal lumbar fusion Depression GERD BPH PLAN: -I reviewed the cardiac conduction system and the EGMs from the zio patch with the patient and how it relates to his condition of TBS -He will need a pacemaker at some juncture in his lifetime -Discussed procedure and risks which include but are not limited to arrhythmias, strokes, heart attacks, high risk injury to with blood vessels, lungs where she would need a chest tube or chamber of the heart where she would need a pericardiocentesis, , bleeding and infection with the patient and his family; they expressed an understanding but the patient wishes to hold off for now-I get a sense the family know he needs it -Continue eliquis; I provided him information about PACE -Would start toprol once he has a ppm -Continue lasix, statin -I will see him back in 1 month for there is a family reunion and the patient's children will be intown and can come to the appointment Melyssa Cornell DO documented in this encounter Nursing Notes * Tessy Jones LPN - 10/18/2023 10:46 AM EDT Examination Room: 16 Name: Srini Ch Date of : 1935 Reason for Visit: New pt Problems/Concerns: Pauses on Zio Interim Hosp(s): 2x fall with fractures, Chest Pain/SOB: denies MyChart Discussed: ALREADY ACTIVE Patient was instructed to not get up on the exam table until directed and assisted by their provider; patient is to remain seated in the chair/ wheelchair/ exam table for fall prevention and safety reasons. Patient is aware staff will assist stepping down off exam table with personnel. documented in this encounter Plan of Treatment Upcoming Encounters Date Type Department Care Team (Late st Contact Info) Description 11/30/2023 9:20 AM EDT Office Visit Nephrology, [facility] [address] [facility] [place] [address] Jose Winter MD [address] [facility] [place] [address] 12/06/2023 11:30 AM EDT Office Visit Cardiology, [facility] 132 [facility] [place] [address] Melyssa Cornell, 400 [facility] [place] [address] 12/26/2023 3:00 PM EDT Office Visit Cardiology, [facility] 132 [facility] [place] [address] Ewelina Poole, OPAL 132 [facility] [place] [address] 01/24/2024 1:30 PM EDT Office Visit Urology, [facility] 132 [facility] [place] [address] George Tran MD [address] [address] [place] [address] 03/13/2024 3:00 PM EDT Cardiac Studies Cardiac Studies, [facility] [address] [facility] [place] [address] Health Maintenance Due Date Last Done Comments COLONOSCOPY-EVERY 5 YRS AGES 18-100 11/02/2022 11/02/2017, 03/05/2014, 03/05/2014, Additional history exists COVID-19 Vaccine ( season) 2023 05/03/2022, 06/11/2021, [...] this encounter Medical Devices Implanted Type Area Site Surveyor Device Identifier Shelf Expiration Date Model / Serial / Lot Sut Steel 6 [id number] - [id number] Implanted:Qty: 4 on 05/30/2014 by Stanislav Hilliard MD at OR [facility] N/A: Chest JNJ : [employer] 02/07/2019 M654G / / [id number] Marker Coronary [facility] - [id number] Implanted:Qty: 2 on 05/30/2014 by Stanislav Hilliard MD at OR [facility] N/A: Aorta [employer] 03/10/2017 [facility] / / [id number] Lens Intraoc 20.5 - [id number] - [id number] Implanted:Qty: 1 on 02/18/2022 by Yandel Bowens MD at OR [facility] Left: Eye [employer] 11/07/2026 [id number] / [id number] / [id number] Lens Intraoc 21.5 - [id number] - [id number] Implanted:Qty: 1 on 03/04/2022 by Yandel Bowens MD at OR [facility] Right: Eye [employer]OM[employer] 10/08/2026 [id number] / [id number] / [id number] documented as of this encounter Visit Diagnoses Diagnosis Tachy-santy syndrome (HCC)- Primary Sinoatrial node dysfunction PAF (paroxysmal atrial fibrillation) ([facility]) Atrial fibrillation Chronic heart failure with preserved ejection fraction ([facility]) documented in this encounter Advance Directives Latest Code Status on File Code Status Date Activated Date Inactivated Comments No Code 03/04/2022 8:43 AM 03/04/2022 2:28 PM This order reflects the patients wishes and were consensually agreed upon. Question Answer Comments Discussion of Advance Directives occurred with: Patient Does the patient have a Living Will? No Does the patient have Health Care Power of Electrification Adviser? No Code Status History Code Status Date Activated Date Inactivated Comments No Code 02/18/2022 7:51 AM 02/18/2022 2:15 PM This order reflects the patients wishes and were consensually agreed upon. Question Answer Comments Discussion of Advance Directives occurred with: Patient Does the patient have a Living Will? No Does the patient have Health Care Power of Electrification Adviser? No Full Code 01/04/2019 6:51 PM 01/06/2019 [...] the patient have Health Care Power of Electrification Adviser? No Care Teams Tool Clerk Relationship Specialty Start Date End Date Angelo Vazquez MD [address] [place] [address] PCP - General Family Medicine 06/24/14 documented as of this encounter"
--- OUTSIDE RECORDS SUMMARY | 2023-11-15 14:37 | External Medical Summary | Summary of Care ---
Author Name Unknown Organization [facility] Address [address] [place] [address] Phone [phone] Care Team Providers Care Defense Travel Administrator Name Role Phone Angelo Vazquez MD Primary Care Provider + Encounter Details Date Type Department Care Team (Late st Contact Info) Description 10/26/2023 Orders Only PATIENT PORTAL DO NOT DELETE THIS DEPT USED BY [place] [id number] Allergies Active Allergy Reactions Criticality Noted Date Comments Bee Venom 12/30/2015 Iodine Other (Please comment) 08/18/2011 Pt says not to use due to shellfish allergy Morphine Anaphylaxis High 08/18/2011 Penicillins Rash 08/18/2011 Shellfish Allergy Edema airway High 08/18/2011 documented as of this encounter (statuses as of 10/26/2023) Medications Medication Sig Dispensed Refills Start Date [...] Tablet (Lipitor)Indication s:Paroxysmal atrial fibrillation (HCC),CAD in [place] artery,S/P CABG x 3 TAKE ONE TABLET BY MOUTH DAILY 90 Tablet 3 01/20/2023 01/20/2024 Active metFORMIN HCl 500 MG Oral Tablet (Glucophage)Indicat ions:Type 2 diabetes mellitus with hemoglobin A1c goal of less than 8.0% (HCC) TAKE ONE TABLET BY MOUTH DAILY 90 Tablet 3 04/21/2023 04/20/2024 Active Metoprolol Succinate ER 25 MG Oral Tablet Extended Release 24 Hour (toPROL XL) TAKE ONE TABLET BY MOUTH DAILY 90 Tablet 1 04/28/2023 04/27/2024 Active Nitroglycerin 0.4 MG Sublingual Tablet Sublingual (Nitrostat)Indicati ons:CAD in [place] artery DISSOLVE 1 TABLET UNDER THE TONGUE [...] the morning. 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 Prior: 5 stents-hx angina. Drug eluting, & bare metal. Most recent 11/18 1986 LCAD PTCA 12.04 LAD & mid circ drug eluting stents 8.08-distal RCA non drug eluting stent 11/13/10 LAD Ion drug eluting stent 01/14/11 Cardiolite EF55% no ischemia Gastroesophageal reflux disease Overview: Particles are regurgitant, some acid reflux, not much coughing Dyslipidemia documented as of this encounter (statuses as of 10/26/2023) Resolved Problems Problem Noted Date Diagnosed Date [...] EVAL 02/28 FOB WNL 12/27 CLARE WNL 2018 colon/upper. +small tubular adenomas. Upper ok. 02/21 [...] as of this encounter (statuses as of 10/26/2023) Immunizations Name Administration Dates Next Due COVID-19 mRNA, LNP-s, No Pre serve, 2-Dose Series (VerbalizeIt) 06/11/2021,10/09/2020,09/19/2020 Covid-19, Mrna, Lnp-s, Pf, B ivalent, 30 Mcg, IM, 12 yrs and above (VerbalizeIt) 05/03/2022 H1N1 2009 Influenza, IM 06/23/2009 Pneumococcal [...] EDT Office Visit Nephrology, [facility] [address] [place] [address] Jose Winter MD [address] [place] [address] 12/06/2023 11:30 AM EDT Office Visit Cardiology, [facility] [address] [facility] [place] [address] Melyssa Cornell, 400 [facility] [place] [address] 12/26/2023 3:00 PM EDT Office Visit Cardiology [facility] [address] [place] [address] Ewelina Poole PA-C 132 [facility] [place] [address] 01/24/2024 1:30 PM EDT Office Visit Urology, [facility] [address] George Tran MD 27 [facility] [address] [place] [address] 03/13/2024 3:00 PM EDT Cardiac Studies Cardiac Studies, [facility] 132 [facility] [place] [address] Health Maintenance Due Date Last Done Comments [...] this encounter Medical Devices Implanted Type Area Case Operator Device Identifier Shelf Expiration Date Model / Serial / Lot Sut Steel 6 M654g - [id number] Implanted:Qty: 4 on 05/30/2014 by Stanislav Hilliard MD [place] [facility] N/A: Chest JNJ : [employer] 02/07/2019 M654G / / [id number] Marker Coronary [facility] - [id number] Implanted:Qty: 2 on 05/30/2014 by Stanislav Hilliard MD [place] [facility] N/A: Aorta [employer] 03/10/2017 [facility] / / [id number] Lens Intraoc 20.5 - [id number] - [id number] Implanted:Qty: 1 on 02/18/2022 by Yandel Bowens MD at OR [facility] Left: Eye [employer]OM[employer] 11/07/2026 [id number] / [id number] / [id number] Lens Intraoc 21.5 - [id number] - [id number] Implanted:Qty: 1 on 03/04/2022 by Yandel Bowens MD at OR [facility] Right: Eye [employer]OM[employer] 10/08/2026 [id number] / [id number] / [id number] documented as of this encounter Advance Directives [...] the patient have Health Care Power of Site Supervising Technical Operator? No Code Status History Code Status Date Activated Date Inactivated Comments No Code 02/18/2022 7:51 AM 02/18/2022 2:15 PM This order reflects the patients wishes and were consensually agreed upon. Question Answer Comments Discussion of Advance Directives occurred with: Patient Does the patient have a Living Will? No Does the patient have Health Care Power of Site Supervising Technical Operator? No Full Code 01/04/2019 6:51 PM [...] the patient have Health Care Power of Site Supervising Technical Operator? No Care Teams Defense Travel Administrator Relationship Specialty Start Date End Date Angelo Vazquez MD [address] [place] [address] PCP - General Family Medicine 06/24/14 documented as of this encounter
--- OUTSIDE RECORDS SUMMARY | 2023-11-15 14:37 | External Medical Summary | Summary of Care ---
Author Name Unknown Organization [facility] [address] [facility] [address] Phone [phone] Care Team Providers Care Mdm Developer Name Role Phone Angelo Vazquez MD Primary Care Provider + Reason for Visit * Reason Onset Date Comments Test Results 10/23/2023 Encounter Details Date Type Department Care Team (Late st Contact Info) Description 10/23/2023 Telephone Family Practice [facility] [address] [place] [address] Angelo Vazquez MD [address] [place] [address] Test Results Allergies Active Allergy Reactions Criticality Noted Date Comments Bee Venom 12/30/2015 Iodine Other (Please comment) 08/18/2011 Pt says not to use due to shellfish allergy Morphine Anaphylaxis High 08/18/2011 Penicillins Rash 08/18/2011 Shellfish Allergy Edema airway High 08/18/2011 documented as of this encounter (statuses as of 10/24/2023) Medications Medication Sig Dispensed Refills Start Date [...] Tablet (Lipitor)Indication s:Paroxysmal atrial fibrillation (HCC),CAD in [place] artery,S/P CABG x 3 TAKE ONE TABLET [...] MG Sublingual Tablet Sublingual (Nitrostat)Indicati ons:CAD in [place] artery DISSOLVE 1 TABLET UNDER THE TONGUE [...] as of this encounter (statuses as of 10/24/2023) Active Problems Problem Noted Date Diagnosed Date [...] Mild 2014 PAF (paroxysmal atrial fibrillation) 07/14/2012 [facility] current use of anticoagulant therapy 0 07/14/2012 Overview: ICD-10 update of inactive term Dysthymia 11/30/2011 Coronary artery disease invo lving [place] coronary artery of [place] heart without angina pectoris Overview: 05/30/14 3V CABG [facility]. Prior: 5 stents-hx angina. Drug eluting, & bare metal. Most recent 11/18 1986 LCAD PTCA 12.04 LAD & mid circ drug eluting stents 8.08-distal RCA non drug eluting stent 11/13/10 LAD Ion drug eluting stent 01/14/11 Cardiolite EF55% no ischemia Gastroesophageal reflux disease Overview: Particles are regurgitant, some acid reflux, not much coughing Dyslipidemia documented as of this encounter (statuses as of 10/24/2023) Resolved Problems Problem Noted Date Diagnosed Date [...] as of this encounter (statuses as of 10/24/2023) Immunizations Name Administration Dates Next Due COVID-19 mRNA, LNP-s, No Pre serve, 2-Dose Series ([place]) 06/11/2021,10/09/2020,09/19/2020 Covid-19, Mrna, Lnp-s, Pf, B ivalent, 30 Mcg, IM, 12 yrs and above ([place]) 05/03/2022 H1N1 2008 Influenza, IM 06/23/2009 Pneumococcal [...] encounter Miscellaneous Notes * Telephone Encounter - Amarilis Herrera LPN - 10/24/2023 12:24 PM EDT Spoke with patients . Notified of below. Thanked staff for the call. No further questions or concerns at this time. * Telephone Encounter - Angelo Vazquez MD - 10/23/2023 2:44 PM EDT Call patient/. Labs stable except Folic acid vitamin low. Rx sent for folic acid pill daily. Will silva labs 3 mos or so documented in this encounter Plan of Treatment Upcoming Encounters Date Type Department Care Team (Late st Contact Info) Description 11/30/2023 9:20 AM EDT Office [facility] [address] [place], [place] [address] Jose Winter MD [address] [place] [address] 12/06/2023 11:30 AM EDT Office Visit Cardiology, [facility] 132 [place] [place] [address] Melyssa Cornell, [address] [facility] [place], [place] [address] 12/26/2023 3:00 PM EDT Office Visit Cardiology, [facility] 132 [place] [address] Ewelina Poole PA-C [address] [facility] [place] [address] 01/24/2024 1:30 PM EDT Office Visit Urology, [facility] 132 [place] [address] George Tran MD [address] [place] [address] 03/13/2024 3:00 PM EDT Cardiac Studies Cardiac Studies, [facility] 132 [place] [address] Scheduled Orders Name Type Priority Associated Diagnoses Orde r Schedule FOLIC ACID Lab Routine Low folic acid Expected: 10/23/2023 (Approximate), Expires: 10/22/2024 FOLIC ACID Lab Routine Low folic acid Expected: 01/22/2024 (Approximate), Expires: 10/22/2024 Health Maintenance Due Date Last Done Comments COLONOSCOPY-EVERY 5 YRS AGES 18-100 11/02/2022 11/02/2017, 03/05/2014, 03/05/2014, Additional history exists COVID-19 Vaccine (5 - 2023-24 season) 2023 05/03/2022, 06/11/2021, 10/09/2020, Additional history [...] this encounter Medical Devices Implanted Type Area Capital Project Engineer Device Identifier Shelf Expiration Date Model / Serial / Lot Sut Faheem 6 M654g - [id number] Implanted:Qty: 4 on 05/30/2014 by Stanislav Hilliard MD at [place] [facility] N/A: Chest JNJ : [employer] 02/07/2019 M654G / / [id number] Marker Coronary [facility] - [id number] Implanted:Qty: 2 on 05/30/2014 by Stanislav Hilliard MD at [place] [facility] N/A: Aorta [employer] 03/10/2017 [facility] / / [id number] Lens Intraoc 20.5 - [id number] - [id number] Implanted:Qty: 1 on 02/18/2022 by Yandel Bowens MD at OR [facility] Left: Eye [employer]OM[employer] 11/07/2026 [id number] / [id number] / [id number] Lens Intraoc 21.5 - [id number] - [id number] Implanted:Qty: 1 on 03/04/2022 by Yandel Bowens MD at OR [facility] Right: Eye [employer]OMB 10/08/2026 [id number] / [id number] / [id number] documented as of this encounter Visit Diagnoses Diagnosis Low folic acid- Primary documented in this encounter Advance Directives Latest Code Status on File Code Status Date Activated Date Inactivated Comments No Code 03/04/2022 8:43 AM 03/04/2022 2:28 PM This order reflects the patients wishes and were consensually agreed upon. Question Answer Comments Discussion of Advance Directives occurred with: Patient Does the patient have a Living Will? No Does the patient have Health Care Power of Human Resource Officer? No Code Status History Code Status Date Activated Date Inactivated Comments No Code 02/18/2022 7:51 AM 02/18/2022 2:15 PM This order reflects the patients wishes and were consensually agreed upon. Question Answer Comments Discussion of Advance Directives occurred with: Patient Does the patient have a Living Will? No Does the patient have Health Care Power of Human Resource Officer? No Full Code 01/04/2019 6:51 PM 01/06/2019 [...] the patient have Health Care Power of Human Resource Officer? No Care Teams Mdm Developer Relationship Specialty Start Date End Date Angelo Vazquez MD [address] [place] [address] PCP - General Family Medicine 06/24/14 documented as of this encounter
--- OUTSIDE RECORDS SUMMARY | 2023-11-15 14:37 | External Medical Summary | Summary of Care ---
Author Name Unknown Organization [facility] Address [address] [facility] [place] [address] Phone [phone] Care Team Providers Care Employee Relations Assistant Name Role Phone Angelo Briones MD Primary Care Provider + Reason for Visit * Reason Comments Medication Refill Encounter Details Date Type Department Care Team (Late st Contact Info) Description 10/26/2023 Refill Family Practice [facility] [address] [place] [phone] Angelo Briones MD [address] [place] [address] Allergies Active Allergy Reactions Criticality Noted Date [...] 5 07/25/2014 Active FLONASE 50 MCG/ACT NA SUSPIndications:Na william erythema Administer into nostril. 1 Bottle 2 10/09/2014 Active Ca Carbonate-Mag Hydroxide 550-110 MG Oral Tablet Chewable Take by mouth. 0 Active Aspirin 81 MG Oral Tablet Delayed Release Take 1 Tablet by mouth in the morning. 0 Active Vitron-C 65-125 MG Oral Tablet (Iron-Vitamin C 65-125 mg per tab)Indications:Ir on deficiency anemia Take 1 Tablet by mouth in the morning. 0 07/22/2022 Active Levothyroxine Sodium 50 MCG Oral Tablet (Levoxyl) TAKE ONE TABLET BY MOUTH IN THE MORNING AT LEAST 30 MINUTES PRIOR TO BREAKFAST OR OTHER MEDS 90 Tablet 3 11/27/2022 4 Active Atorvastatin Calcium 80 MG Oral Tablet (Lipitor)Indicatio ns:Paroxysmal atrial fibrillation (HCC),CAD in [place] artery,S/P CABG x 3 TAKE ONE TABLET BY MOUTH DAILY 90 Tablet 3 01/20/2023 4 Active metFORMIN HCl 500 MG Oral Tablet (Glucophage)Indica tions:Type 2 diabetes mellitus with hemoglobin A1c goal of less than 8.0% (HCC) TAKE ONE TABLET BY MOUTH DAILY 90 Tablet 3 04/21/2023 4 Active Nitroglycerin 0.4 MG Sublingual Tablet Sublingual (Nitrostat)Indicat ions:CAD in [place] artery DISSOLVE 1 TABLET UNDER THE TONGUE NEEDED FOR CHEST PAIN, MAY REPEAT EVERY 5 MINUTES FOR 3 TOTAL DOSES 25 Tablet 3 05/30/2023 Active Finasteride 5 MG Oral Tablet (Proscar) Take 1 Tablet by mouth in the morning. 90 Tablet 3 07/12/2023 Active Diclofenac Sodium 1 % External Gel (Voltaren)Indicati ons:Chronic left-sided low back pain without sciatica Apply [...] Sodium 40 MG Oral Tablet Delayed Release (Protonix)Indicati ons:Gastroesophage al reflux disease without esophagitis TAKE 1 TABLE BY MOUTH 30 MINUTES BEFORE THE FIRST MEAL OF THE DAY. DO NOT CRUSH, SPLIT OR CHEW THE TABLET. 90 Tablet 3 08/19/2023 5 Active tiZANidine HCl 4 MG Oral Tablet (Zanaflex) Take 1 Tablet by mouth in the morning and 1 Tablet before bedtime. 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 Dry eyes 01/27/2015 S/P CABG x 3 09/28/2014 Type 2 diabetes mellitus wit h hemoglobin A1c goal of less than 8.0% 09/26/2014 Overview: ICD-10 update of inactive term Aortocoronary bypass status 07/25/2014 Diabetic retinopathy 10/10/2013 Overview: Mild 2013 PAF (paroxysmal atrial fibrillation) 07/14/2012 long term care administrator current use of anticoagulant therapy 0 07/14/2012 Overview: ICD-10 update of inactive term Dysthymia 11/30/2011 Coronary artery disease invo [place]ving [place] coronary artery of [place] heart without angina pectoris Overview: 05/30/14 3V CABG [facility]. Prior: 5 stents-hx angina. Drug eluting, [...] 06/07/2023 Overview: 04/25 cystic on US-silva Donavan [place] Dermatitis 07/24/2014 06/07/2023 Regurgitation and rechewing 06/27/2014 [...] mRNA, LNP-s, No Pre serve, 2-Dose Series (Recovr) 06/11/2021,10/09/2020,09/19/2020 Covid-19, Mrna, Lnp-s, Pf, B ivalent, [...] encounter Miscellaneous Notes * Telephone Encounter - Shabibr Montiel [facility] - 10/26/2023 4:30 PM EDTSigned Prescriptions: Disp Refills Metoprolol Succinate ER 25 MG Oral Tablet *90 Tab*3 Sig: TAKE ONE TABLET BY MOUTH DAILYAuthorizing Provider: ANGELO BRIONES User: SHABBIR MONTIEL-- documented in this encounter Plan of Treatment Upcoming Encounters Date Type Department Care Team (Late st Contact Info) Description 10/27/2023 12:00 PM EDT Laboratory Laboratory, [facility] [address] [facility] [place] [phone] CottrellEugenio mckeon [facility] [address] [facility] [place] [address] 11/30/2023 9:20 AM EDT Office Visit Nephrology, [facility] [address] [place] [address] Jose Winter MD [address] [facility] [place] [address] 12/06/2023 11:30 AM EDT Office Visit Cardiology, [facility] [address] [facility] [place] [address] Melyssa Cornell, [address] [place] [address] 12/26/2023 3:00 PM EDT Office Visit Cardiology, [facility] [address] [facility] [place] [address] Ewelina Poole PA-C [address] [facility] [place] [address] 01/24/2024 1:30 PM EDT Office Visit Urology, [facility] [address] [facility] [place] [address] George Tran MD [address] [place] [address] [place] [address] 03/13/2024 3:00 PM EDT Cardiac Studies Cardiac Studies, [facility] [address] [facility] [place] [address] Health Maintenance Due Date Last Done Comments [...] this encounter Medical Devices Implanted Type Area Buyer Device Identifier Shelf Expiration Date Model / Serial / Lot Franko Mayen 6 M654g - [id number] Implanted:Qty: 4 on 05/30/2014 by Stanislav Hilliard MD at [place] [facility] N/A: Chest JNJ : [employer] 02/07/2019 M654G / / [id number] Marker Coronary [facility] - [id number] Implanted:Qty: 2 on 05/30/2014 by Stanislav Hilliard MD at [place] [facility] N/A: Aorta [employer] 03/10/2017 [facility] / / [id number] Lens Intraoc 20.5 - [id number] - [id number] Implanted:Qty: 1 on 02/18/2022 by Yandel Bowens MD at OR [facility] Left: Eye [employer] 11/07/2026 [id number] / [id number] / [id number] Lens Intraoc 21.5 - [id number] - [id number] Implanted:Qty: 1 on 03/04/2022 by Yandel Bowens MD at OR [facility] Right: Eye [employer]OM[employer] 10/08/2026 [id number] / [id number] / [id number] documented as of this encounter Advance Directives [...] the patient have Health Care Power of Actuarial Director? No Code Status History Code Status Date Activated Date Inactivated Comments No Code 02/18/2022 7:51 AM 02/18/2022 2:15 PM This order reflects the patients wishes and were consensually agreed upon. Question Answer Comments Discussion of Advance Directives occurred with: Patient Does the patient have a Living Will? No Does the patient have Health Care Power of Actuarial Director? No Full Code 01/04/2019 6:51 PM 01/06/2019 [...] the patient have Health Care Power of Actuarial Director? No Care Teams Employee Relations Assistant Relationship Specialty Start Date End Date Angelo Briones MD [address] [place] [address] PCP - General Family Medicine 06/24/14 documented as of this encounter
--- OUTSIDE RECORDS SUMMARY | 2023-11-15 14:37 | External Medical Summary | Summary of Care ---
Author Name Unknown Organization [facility] Address [address] [facility] [address] Phone [phone] Care Team Providers Care Revising Clerk Name Role Phone Angelo Vazquez MD Primary Care Provider + Reason for Visit * Reason Onset Date Comments Test Results 10/14/2023 Encounter Details Date Type Department Care Team (Late st Contact Info) Description 10/14/2023 Telephone Cardiology, [facility] [address] [place] [address] Dannie Middleton, [address] [place] [address] Test Results Allergies Active Allergy Reactions Criticality Noted Date Comments Bee Venom 12/30/2015 Iodine Other (Please comment) 08/18/2011 Pt says not to use due to shellfish allergy Morphine Anaphylaxis High 08/18/2011 Penicillins Rash 08/18/2011 Shellfish Allergy Edema airway High 08/18/2011 documented as of this encounter (statuses as of 10/14/2023) Medications Medication Sig Dispensed Refills Start Date [...] Tablet (Lipitor)Indication s:Paroxysmal atrial fibrillation (HCC),CAD in [place] artery,S/P CABG x 3 TAKE ONE TABLET BY MOUTH DAILY 90 Tablet 3 01/20/2023 01/20/2024 Active Sodium Chloride 1 GM Oral Tablet Take 1 Tablet by mouth in the morning. 30 Tablet 3 03/31/2023 Active metFORMIN HCl 500 MG Oral Tablet [...] MG Sublingual Tablet Sublingual (Nitrostat)Indicati ons:CAD in [place] artery DISSOLVE 1 TABLET UNDER THE TONGUE [...] the morning. 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 Prior: 5 stents-hx angina. [...] as of this encounter (statuses as of 10/14/2023) Resolved Problems Problem Noted Date Diagnosed Date [...] as of this encounter (statuses as of 10/14/2023) Immunizations Name Administration Dates Next Due COVID-19 mRNA, LNP-s, No Pre serve, 2-Dose Series (Chideo) 06/11/2021,10/09/2020,09/19/2020 Covid-19, Mrna, Lnp-s, Pf, B ivalent, 30 Mcg, IM, 12 yrs and above (Chideo) 05/03/2022 H1N1 2008 Influenza, IM 06/23/2009 Pneumococcal [...] encounter Miscellaneous Notes * Telephone Encounter - Dannie Middleton DO - 10/14/2023 8:43 AM EDT Spoke with patient's Savannah by phone and discussed the results of the Zio monitor. I believe can given his recent history and the results of the monitor indicate the need for pacemaker. She is agreeable to bringing him in next week to see Dr. Hill. if anything happens over the weekend however, she will take him to the emergency department. documented in this encounter Plan of Treatment Upcoming Encounters Date Type Department Care Team (Late st Contact Info) Description 11/30/2023 3:00 PM EDT Office Visit NephrologyMohan [address] [place] [address] Jose Winter MD [address] [place] [address] 12/26/2023 3:00 PM EDT Office Visit Cardiology, [facility] [address] [place] [address] Ewelina Poole, [place] [address] [place] [address] 01/24/2024 1:30 PM EDT Office Visit Urology, [facility] [address] [facility] [place] [address] George Tran MD 27 [facility] [address] [place] [address] 03/13/2024 3:00 PM EDT Cardiac Studies Cardiac Studies, [facility] [address] [place] [address] Health Maintenance Due Date Last Done Comments COLONOSCOPY-EVERY 5 YRS AGES 18-100 11/02/2022 11/02/2017, 03/05/2014, 03/05/2014, Additional history exists COVID-19 Vaccine ( season) 2023 05/03/2022, 06/11/2021, 10/09/2020, Additional history exists Diabetic Foot Exam 06/01/2023 06/01/2022, 0 12/08/2018, 09/08/2017, Additional history exists Diabetic Eye Exam 11/06/2023 11/05/2022, , 08/06/2022, Additional history exists Depression Screening 12/04/2023 12/03/2022 Albumin/Creatinine Ratio 12/08/2023 023, 06/15/2021, 06/06/2019, Additional [...] this encounter Medical Devices Implanted Type Area Supervisor Quality Control Device Identifier Shelf Expiration Date Model / Serial / Lot Sut Steel 6 M654g - [id number] Implanted:Qty: 4 on 05/30/2014 by Stanislav Hilliard MD at [place] [facility] N/A: Chest JNJ : [employer] 02/07/2019 M654G / / [id number] Marker Coronary Am-[place]d - [id number] Implanted:Qty: 2 on 05/30/2014 by Stanislav Hilliard MD at OR [facility] N/A: Aorta [employer] 03/10/2017 [facility]-[place] / / [id number] Lens Intraoc 20.5 - [id number] - [id number] Implanted:Qty: 1 on 02/18/2022 by Yandel Bowens MD at OR [facility] Left: Eye [employer]OM[employer] 11/07/2026 [id number] / [id number] / [id number] Lens Intraoc 21.5 - [id number] - [id number] Implanted:Qty: 1 on 03/04/2022 by Yandel Bowens MD at OR [facility] Right: Eye [employer]OM[employer] 10/08/2026 [id number] / [id number] / [id number] documented as of this encounter Advance Directives [...] the patient have Health Care Power of Registered Art Therapist? No Code Status History Code Status Date Activated Date Inactivated Comments No Code 02/18/2022 7:51 AM 02/18/2022 2:15 PM This order reflects the patients wishes and were consensually agreed upon. Question Answer Comments Discussion of Advance Directives occurred with: Patient Does the patient have a Living Will? No Does the patient have Health Care Power of Registered Art Therapist? No Full Code 01/04/2019 6:51 PM 01/06/2019 [...] the patient have Health Care Power of Registered Art Therapist? No Care Teams Revising Clerk Relationship Specialty Start Date End Date Angelo Vazquez MD [address] [place] [address] PCP - General Family Medicine 06/24/14 documented as of this encounter
--- OUTSIDE RECORDS SUMMARY | 2023-11-15 14:37 | External Medical Summary | Summary of Care ---
Author Name Unknown Organization [facility] Address [address] [facility] [place] [address] Phone [phone] Care Team Providers Care Assistant Elementary Teacher Name Role Phone Angelo Vazquez MD Primary Care Provider + Encounter Details Date Type Department Care Team (Late st Contact Info) Description 07/14/2023 Telephone Family Practice [facility] [address] [place] [address] Angelo Vazquez MD [address] [place] [address] Allergies Active Allergy Reactions Criticality Noted Date Comments Bee Venom 12/30/2015 Iodine Other (Please comment) 08/18/2011 Pt says not to use due to shellfish allergy Morphine Anaphylaxis High 08/18/2011 Penicillins Rash 08/18/2011 Shellfish Allergy Edema airway High 08/18/2011 documented as of this encounter (statuses as of 10/13/2023) Medications Medication Sig Dispensed Refills Start Date [...] Tablet (Lipitor)Indication s:Paroxysmal atrial fibrillation (HCC),CAD in [place] artery,S/P CABG x 3 TAKE ONE TABLET [...] MG Sublingual Tablet Sublingual (Nitrostat)Indicati ons:CAD in [place] artery DISSOLVE 1 TABLET UNDER THE TONGUE NEEDED FOR CHEST PAIN, MAY REPEAT EVERY 5 MINUTES FOR 3 TOTAL DOSES 25 Tablet 3 05/30/2023 Active Finasteride 5 MG Oral Tablet (Proscar) Take 1 Tablet by mouth in the morning. 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 Prior: 5 stents-hx angina. Drug eluting, & bare metal. Most recent 11/18 1986 LCAD PTCA 12.04 LAD & mid circ drug eluting stents 8.08-distal RCA non drug eluting stent 11/13/10 LAD Ion drug eluting stent 01/14/11 Cardiolite EF55% no ischemia Gastroesophageal reflux disease Overview: Particles are regurgitant, some acid reflux, not much coughing Dyslipidemia documented as of this encounter (statuses as of 10/13/2023) Resolved Problems Problem Noted Date Diagnosed Date Resolved Date History of 2019 novel duff virus disease (COVID-19) 06/01/2021 06/01/2022 Overview: 05/2021 vax x2? DM kidney disease 01/09/2019 02/08/2023 Leg mass 03/31/2016 06/07/2023 Overview: 04/25 cystic on US-silva Donavan Dr Hdz Dermatitis 07/24/2014 06/07/2023 Regurgitation and rechewing [...] as of this encounter (statuses as of 10/13/2023) Immunizations Name Administration Dates Next Due COVID-19 mRNA, LNP-s, No Pre serve, 2-Dose Series (Cydan) 06/11/2021,10/09/2020,09/19/2020 Covid-19, Mrna, Lnp-s, Pf, B ivalent, 30 Mcg, IM, 12 yrs and above (Pfizer) 05/03/2022 H1N1 2009 Influenza, IM 06/23/2009 Pneumococcal Conjugate Vacc, 13 Valent (Prevnar) 04/02/2020,01/23/2016,2003 Pneumococcal Conjugate Vacci ne, 7 Valent 2003 Pneumococcal Polysaccharide PPV23 (Pneumovax) 09/15/2014,05/05/2004 Season Influenza, Quad, PF, Adjuvanted, 65+ Yrs, [...] pur e alcohol) drank alcohol once in 1957 PHQ-2 Answer Date Recorded PHQ Adult Total [...] encounter Miscellaneous Notes * Telephone Encounter - Angelo Vazquez MD - 07/14/2023 1:05 PM EST Pt missed appt today Having back pain from comrpessino fracture/ rib fractures. Has hx edema to shellfish so unable to use calcitonin. documented in this encounter Plan of Treatment Upcoming Encounters Date Type Department Care Team (Late st Contact Info) Description 11/30/2023 3:00 PM EDT Office Visit Nephrology, [facility] [address] [facility] [place] [address] Jose Winter MD [address] [facility] [place] [address] 12/26/2023 3:00 PM EDT Office Visit Cardiology, [facility] [address] [facility] [place] [address] Ewelina Poole PA-C 132 [facility] [place] [address] 01/24/2024 1:30 PM EDT Office Visit Urology, [facility] [address] [facility] [place] [address] George Tran MD [address] [facility] [address] [place] [address] 03/13/2024 3:00 PM EDT Cardiac Studies Cardiac Studies, [facility] [address] [facility] [place] [address] Health Maintenance Due Date Last Done Comments [...] this encounter Medical Devices Implanted Type Area Background Check Coordinator Device Identifier Shelf Expiration Date Model / Serial / Lot Sut Steel 6 M654g - [id number] Implanted:Qty: 4 on 05/30/2014 by Stanislav Hilliard MD at OR [facility] N/A: Chest JNJ : [employer] 02/07/2019 M654G / / [id number] Marker Coronary [facility] - [id number] Implanted:Qty: 2 on 05/30/2014 by Stanislav Hilliard MD at OR [facility] N/A: Aorta [employer] 03/10/2017 [facility] / / [id number] Lens Intraoc 20.5 - [id number] - [id number] Implanted:Qty: 1 on 02/18/2022 by Yandel Bowens MD at OR [facility] Left: Eye [employer]OM[employer] 11/07/2026 [id number] / [id number] / [id number] Lens Intraoc 21.5 - [id number] - [id number] Implanted:Qty: 1 on 03/04/2022 by Yandel Bowens MD at OR [facility] Right: Eye [employer]OMB 10/08/2026 [id number] / [id number] / [id number] documented as of this encounter Advance Directives [...] the patient have Health Care Power of It Consultant? No Code Status History Code Status Date Activated Date Inactivated Comments No Code 02/18/2022 7:51 AM 02/18/2022 2:15 PM This order reflects the patients wishes and were consensually agreed upon. Question Answer Comments Discussion of Advance Directives occurred with: Patient Does the patient have a Living Will? No Does the patient have Health Care Power of It Consultant? No Full Code 01/04/2019 6:51 PM 01/06/2019 [...] the patient have Health Care Power of It Consultant? No Care Teams Assistant Elementary Teacher Relationship Specialty Start Date End Date Angelo Vazquez MD [address] [place] [address] PCP - General Family Medicine 06/24/14 documented as of this encounter
--- OUTSIDE RECORDS SUMMARY | 2023-11-15 14:37 | External Medical Summary | Summary of Care ---
Author Name Unknown Organization [facility] Address [address] [place] [address] Phone [phone] Care Team Providers Care Manager Electrical Name Role Phone Angelo Vazquez MD Primary Care Provider + Reason for Visit * Reason Comments Return Visit Follow up-reports le ft lower abdominal pain. Pain is not constant- reports it comes and go's. Describes pain as sharp and burning. Has trouble laying on left side while in bed. Back pain comes and goes now. Using Voltaren gel and tramadol/tylenol. reports patient has passed out 5 times recently. Encounter Details Date Type Department Care Team (Late st Contact Info) Description 09/27/2023 3:20 PM EDT Office Visit Family Practice [facility] [address] [facility] [place] [address] Angelo Vazquez MD [address] [facility] [place] [address] Syncope and collapse*; Chronic systolic heart failure (HCC); DM kidney disease (HCC); Hyponatremia; Iron deficiency anemia, unspecified iron deficiency anemia type; Generalized weakness; Spinal stenosis of lumbar region with neurogenic claudication Allergies Active Allergy Reactions Criticality Noted Date Comments Bee Venom 12/30/2015 Iodine Other (Please comment) 08/18/2011 Pt says not to use due to shellfish allergy Morphine Anaphylaxis High 08/18/2011 Penicillins Rash 08/18/2011 Shellfish Allergy Edema airway High 08/18/2011 documented as of this encounter (statuses as of 10/10/2023) Medications Medication Sig Dispensed Refills Start Date End Date Status TYLENOL ARTHRITIS PAIN 650 MG PO TBCR 2 TABLETS EVERY 8 HOURS NEEDED 60 Tab 5 07/25/2014 Active FLONASE 50 MCG/ACT NA SUSPIndications:N abdiaziz [...] Tablet (Lipitor)Indicati ons:Paroxysmal atrial fibrillation (HCC),CAD in [place] artery,S/P CABG x 3 TAKE ONE TABLET BY MOUTH DAILY 90 Tablet 3 01/20/2023 4 Active Sodium Chloride 1 GM Oral Tablet Take 1 Tablet by mouth in the morning. 30 Tablet 3 03/31/2023 Active metFORMIN HCl 500 MG Oral Tablet (Glucophage)Indic ations:Type 2 diabetes mellitus with hemoglobin A1c goal of less than 8.0% (HCC) TAKE ONE TABLET BY MOUTH DAILY 90 Tablet 3 04/21/2023 4 Active Metoprolol Succinate ER 25 MG Oral Tablet Extended Release 24 Hour (toPROL XL) TAKE ONE TABLET BY MOUTH DAILY 90 Tablet 1 04/28/2023 4 Active Nitroglycerin 0.4 MG Sublingual Tablet Sublingual (Nitrostat)Indica tions:CAD in [place] artery DISSOLVE 1 TABLET UNDER THE TONGUE NEEDED FOR CHEST PAIN, MAY REPEAT EVERY 5 MINUTES FOR 3 TOTAL DOSES 25 Tablet 3 05/30/2023 Active Furosemide 40 MG Oral Tablet (Lasix) take 1 tablet (40 mg) by mouth twice a day 60 Tablet 2 06/24/2023 Active Finasteride 5 MG Oral Tablet (Proscar) [...] mouth in the morning. 30 Tablet 3 06/07/2023 4 Discontinue d(Refill) tiZANidine HCl 4 MG Oral Tablet (Zanaflex) take 1 tablet (4 mg) by mouth twice a day As Needed for muscle spasticity 30 Tablet 1 08/26/2023 4 Discontinue d(Refill) traMADol HCl 50 MG Oral Tablet (Ultram) take 1 tablet (50 mg ) by mouth twice a day As Needed for pain; In addition to the tramadol, take acetaminophen either regular strength or extra, 2 pills. 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 Prior: 5 stents-hx [...] as of this encounter (statuses as of 10/10/2023) Resolved Problems Problem Noted Date Diagnosed Date [...] as of this encounter (statuses as of 10/10/2023) Immunizations Name Administration Dates Next Due COVID-19 mRNA, LNP-s, No Pre serve, 2-Dose Series ([employer]) 06/11/2021,10/09/2020,09/19/2020 Covid-19, Mrna, Lnp-s, Pf, B ivalent, 30 Mcg, IM, 12 yrs and above ([employer]) 05/03/2022 H1N1 2009 Influenza, IM 06/23/2009 Pneumococcal [...] Date Smoking Tobacco: Never Smokeless Tobacco: Never Tobacco Cessation:Counseling Given: Not Answered Alcohol Use Standard Drinks/Week Comments No 0 [...] Sign Reading Time Taken Comments Blood Pressure 102/60 09/27/2023 3:34 PM EDT Pulse 58 09/27/2023 3:34 PM EDT Temperature - - Respiratory Rate 14 09/27/2023 3:34 PM EDT Oxygen Saturation 98% 09/27/2023 3:34 PM EDT Inhaled Oxygen Concentration - - Weight - - Height - - Body Mass Index - - documented in this encounter Functional Status Functional [...] as of this encounter Progress Notes * Angelo Vazquez MD - 10/10/2023 2:34 PM EDT SUBJECTIVE: Srini Ch is a 88 year old male here for Return Visit (Follow up-reports left lower abdominal pain. Pain is not constant- reports it comes and go's. Describes pain as sharp and burning. Has trouble laying on left side while in bed. /Back pain comes and goes now. Using Voltaren gel and tramadol/tylenol. / reports patient has passed out 5 times recently. ) . Here for f/u with and son, Hernan.. notes in the last couple weeks has been frequently lightheaded at night. He has had a couple episodes from lying to sitting on the bed where he has had brief syncope. He comes to very quickly after lying down. She checks his blood pressure at this time. Pulses typically around 50-60. Blood pressure can be quite, for example on September 22 it was read [id number]. Yesterday was 80-90/49-64 when this occurred. No fever, chills, chest pain, shortness of breath, headache, nausea, vomit, diarrhea, constipation or vision changes Ongoing rib pain s/p 07/07/23 rib fractures. He is concerned with LLQ pain, sharp, off &/on. Worse with lying supine or position changes. Cardiology Physician wake him up at night. Has been over thge last couple mos. BMs ok. Lying still on right side helps. ROS: Negative except above. Past Medical History: Diagnosis Date Angina pectoris syndrome (HCC) Arthritis Benign neoplasm of colon 03/05/2014 adenomatous polyp, repeat 5 yrs CAD in [place] artery Diabetes type 2, controlled ([facility]) HbA1c < 7, no medication. Diverticulosis of colon (without mention of hemorrhage) 03/05/2014 sigmoid colon Dyslipidemia Dysthymia 11/30/2011 GERD (gastroesophageal reflux disease) Particles are regurgitant, some acid reflux, not much coughing History of 2018 novel coronavirus disease (COVID-19) 06/01/202105/2021 vax x2? Nocturia Regurgitation and rechewing 06/27/2014 S/P CABG x 3 09/28/2014 S/P lumbar spinal fusion 09/20/201709/25 Dr Harrell L2-4 posterior fusion SIADH (syndrome of inappropriate ADH production) ([facility]) 09/03/2020 Due to high fluid PO intake. Type 2 diabetes mellitus with hemoglobin A1c goal of less than 8.0% ([facility]) 09/26/2014 ICD-10 update of inactive term Past Surgical History: Procedure Laterality Date ARTHROPLASTY KNEE TOTAL 2008 (?) Left knee injury with surgery in 1968, arthritis before surgery [place] ANGIOPLASTY;SINGLE 52 years old BYPASS GRAFT ANGIOGRAPHY W/LEFT HEART CATH Right 01/05/2019 BYPASS GRAFT ANGIOGRAPHY W/LEFT HEART CATH performed by Mouna Castro MD at CARDIAC LABS [facility] CABG, ARTERIAL, SINGLE N/A 05/30/2014 CORONARY ARTERY BYPASS GRAFT USING ARTERY 1 GRAFT performed by Stanislav Hilliard MD at OR [facility] CABG, ARTERIAL, THREE 05/30/14 (3v, not 1v) CARPAL TUNNEL SURGERY Bilateral 03/2017 Dr Hanna COLONOSCOPY, DIAGNOSTIC (RECTUM) 03/05/2014 adenomatous polyp, diverticulosis, repeat 5 yrs/COLONOSCOPY FLEXIBLE PROXIMAL DIAGNOSTIC performed by Mason Wilkes MD at ENDOSCOPY [facility] COLONOSCOPY, DIAGNOSTIC (RECTUM) 11/02/2017 adenomatous polyp / [facility] EGD, FLEXIBLE, DIAGNOSTIC 03/05/2014 normal/ESOPHAGOGASTRODUODENOSCOPY (EGD), FLEXIBLE, TRANSORAL, DIAGNOSTIC performed by Mason Wilkes MD at ENDOSCOPY [facility] EGD, FLEXIBLE, DIAGNOSTIC 11/02/2017 normal bx / [facility] LUMBAR SPINE FUSION, POST INTERBODY 09/15/2017 Dr [email or web address]. L2-4 fusion. transverse fusion/bone. PATIENT EDU, LUMBAR MICRODISCECTOMY 1991 still has intermittent lower right back pain, does not radiate beyond the hip REMOVE CATARACT, INSERT LENS PROSTH Left 02/18/2022 LEFT EXTRACAPSULAR CATARACT REMOVAL WITH INTRAOCULAR LENS performed by Yandel Bowens MD at OR [facility] REMOVE CATARACT, INSERT LENS PROSTH Right 03/04/2022 RIGHT EXTRACAPSULAR CATARACT REMOVAL WITH INTRAOCULAR LENS performed by Yandel Bowens MD at OR [facility] STENT, COATED/COVERED, WITH DELIVERY SYSTEM Last one was 11/23/10 total of 5 stents, 2 MARIBEL (06/13) and 1 BMS (11/23/10) TOTAL HIP REPLACEMENT & PROSTHESIS December 22 2009 right hip due to arthritis. In [place]. 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 1 Bottle 2 Ca Carbonate-Mag Hydroxide 550-110 MG Oral Tablet Chewable Take by mouth. Aspirin 81 MG Oral Tablet Delayed Release [...] FOR 3 TOTAL DOSES 25 Tablet 3 Furosemide 40 MG Oral Tablet (Lasix) take 1 tablet (40 mg) by mouth twice a day 60 Tablet 2 Finasteride 5 MG Oral Tablet (Proscar) Take [...] 1 Tablet before bedtime. 60 Tablet 1 Sodium Chloride 1 GM Oral Tablet Take 1 Tablet by mouth in the morning. 30 Tablet 3 Escitalopram Oxalate 10 MG Oral Tablet (Lexapro) Take 1 Tablet by mouth in the morning. 90 Tablet 3 No current facility-administered medications for this visit. Physical: BP 102/60 | Pulse 58 | Resp 14 | SpO2 98% General-No apparent Distress, lying on bed. Pain with ROM Head, Eyes, Ears, Nose, Throat--Normocephalic, atraumatic Neck-Supple Lymph-no lymphadenopathy Lungs-Clear to Auscultation bilaterally Cardiovascular--Regular rate & Rhythm, +s1, s2, no murmur Abdomen-soft, nontender, nondistended + bowel sounds Mskel tender left lateral ribs. Extremities--no edema Neuro-alert & oriented x3 (R55) Syncope and collapse (primary encounter diagnosis) Plan: EXTERNAL EKG 8 TO 15 DAYS Discussed w/cardiology--reduce lasix Close f/u cardiology Consider palliative care w/mult med problems eval. (I50.22) Chronic systolic heart failure (HCC) Plan: chornic (E11.21) DM kidney disease (HCC) Plan: labs reviewed/cont mgmt (E87.1) Hyponatremia Plan: BASIC METABOLIC PANEL, CBC WITH WBC DIFFERENTIAL AND ANEMIA REFLEX WORKUP, BASIC METABOLIC PANEL, CBC WITH WBC DIFFERENTIAL AND ANEMIA REFLEX WORKUP, RETICULOCYTE PANEL, TSH, FOLIC ACID, VITAMIN B12 Chornic low--he chooses not to fluid restrict. Has seen nephro (D50.9) Iron deficiency anemia, unspecified iron deficiency anemia type Plan: IRON SCREEN, INCLUDING TIBC, FERRITIN, IRON SCREEN, INCLUDING TIBC, FERRITIN Consider occult malig (R53.1) Generalized weakness Plan: as above (M48.062) Spinal stenosis of lumbar region with neurogenic claudication Plan: cont mgmt Rib pain--cont mgmt, has had improvement, discussed should cont to improve w/time w/hx fracture. I spent a total of 40-54 minutes (exact time 45 mins) on the date of service in preparation, delivery, and documentation of the care provided to Srini Ch excluding any time spent in the performance of separately billed services. (This note was completed using the dictation program Fluency Direct. As such, there may be misspellings, word substitutions, or other variations that should not change the essence of the clinical content of this encounter note.If there is need for further clarification, please direct questions to the provider listed above.) Angelo Vazquez MD * Amarilis Herrera LPN - 09/27/2023 4:55 PM EDT 09/27/23 4:55 PM Date to Remove: 10/11/23 Time to Remove: 4:30 Serial Number: [id number] Ordering Provider: ANALI ASHBY Results: N/A Amarilis Herrera LPN Zio patch applied in clinic, as per provider orders. documented in this encounter Nursing Notes * Amarilis Herrera LPN - 09/27/2023 3:32 PM EDT The patient has been properly identified by confirmation of name and date of . Chief Complaint Patient presents with Return Visit Follow up-reports left lower abdominal pain. Pain is not constant- reports it comes and go's. Describes pain as sharp and burning. Has trouble laying on left side while in bed. Back pain comes and goes now. Using Voltaren gel and tramadol/tylenol. reports patient has passed out 5 times recently. reports when patient passed out last night his BP was 82/49 then 5 minutes later BP was 94/64. documented in this encounter Plan of Treatment Upcoming Encounters Date Type Department Care Team (Late st Contact Info) Description 11/30/2023 3:00 PM EDT Office Visit Nephrology, [facility] [address] [place] [address] Jose Winter MD [address] [place] [address] 12/26/2023 3:00 PM EDT Office Visit Cardiology, [facility] [address] [facility] [place] [address] Ewelina Poole, OPAL [address] [place] [address] 01/24/2024 1:30 PM EDT Office Visit Urology, [facility] [address] [facility] [place] [address] George Tran MD [address] [place] [address] 03/13/2024 3:00 PM EDT Cardiac Studies Cardiac Studies, [facility] [address] [facility] [place] [address] Scheduled Orders Name Type Priority Associated Diagnoses Orde r Schedule EXTERNAL EKG 8 TO 15 DAYS Holter Routine Syncope and collapse Expected: 09/28/2023 (Approximate), Expires: 09/26/2024 Health Maintenance Due Date Last Done Comments [...] this encounter Medical Devices Implanted Type Area Manager Games Device Identifier Shelf Expiration Date Model / Serial / Lot Sut Steel 6 M654g - [id number] Implanted:Qty: 4 on 05/30/2014 by Stanislav Hilliard MD at OR [facility] N/A: Chest JNJ : [employer] 02/07/2019 M654G / / [id number] Marker Coronary [facility] - [id number] Implanted:Qty: 2 on 05/30/2014 by Stanislav Hilliard MD at OR [facility] N/A: Aorta [employer] 03/10/2017 [facility] / / [id number] Lens Intraoc 20.5 - [id number] - [id number] Implanted:Qty: 1 on 02/18/2022 by Yandel Bowens MD at OR [facility] Left: Eye [employer] 11/07/2026 [id number] / [id number] / [id number] Lens Intraoc 21.5 - [id number] - [id number] Implanted:Qty: 1 on 03/04/2022 by Yandel Bowens MD at OR [facility] Right: Eye [employer] 10/08/2026 [id number] / [id number] / [id number] documented as of this encounter Procedures Procedure Name Priority Date/Time Associated Diagnosis Comments ANEMIA REFLEX CHEMISTRY HOLD Routine 09/27/2023 5:03 PM EDT Hyponatremia ANEMIA CBC Routine 09/27/2023 5:03 PM EDT Hyponatremia DIFFERENTIAL, AUTOMATED Routine 09/27/2023 5:03 PM EDT Hyponatremia DIFFERENTIAL, AUTOMATED Routine 09/27/2023 5:03 PM EDT Hyponatremia RETICULOCYTE PANEL Routine 09/27/2023 5: 03 PM EDT Hyponatremia BASIC METABOLIC PANEL Routine 09/27/2023 5:03 PM EDT Hyponatremia FOLIC ACID Routine 09/27/2023 5:03 PM EDT Hyponatremia IRON SCREEN, INCLUDING TIBC Routine 09/27/2023 5:03 PM EDT Iron deficiency anemia, unspecified iron deficiency anemia type TSH Routine 09/27/2023 5:03 PM EDT Hyponatremia FERRITIN Routine 09/27/2023 5:03 PM EDT Iron deficiency anemia, unspecified iron deficiency anemia type VITAMIN B12 Routine 09/27/2023 5:03 PM EDT Hyponatremia documented in this encounter Results * (ABNORMAL) VITAMIN B12 (09/27/2023 5:03 PM EDT) Vitamin B12 >2,000(H) 232 - 1,245 pg/mL 09/28/2023 2:45 AM EDT LABORATORY [facility] Blood Venous blood specimen / Unknown Venipuncture / Unknown 09/27/2023 5:03 PM EDT 09/27/2023 5:03 PM EDT Angelo Vazquez MD LAB BLOOD ORDERA BLES Performing Organization Address City/State/[facility] Co de Phone Number LABORATORY [facility] [address] [place] [address] * (ABNORMAL) FOLIC ACID (09/27/2023 5:03 PM EDT) [facility] Folic Acid 4.1(L) >4.5 ng/mL 09/28/2023 2:45 AM EDT LAB[facility]ATORY [facility] Blood Venous blood specimen / Unknown Venipuncture / Unknown 09/27/2023 5:03 PM EDT 09/27/2023 5:03 PM EDT Angelo Vazquez MD LAB BLOOD ORDERA BLES Performing Organization Address [facility]/ZIP Co de Phone Number LABORATORY [facility] [address] [place] [address] * TSH (09/27/2023 5:03 PM EDT) [facility] TSH 2.80 0.27 - 4.20 uIU/mL 09/28/2023 2:45 AM EDT [facility] Blood Venous blood specimen / Unknown Venipuncture / Unknown 09/27/2023 5:03 PM EDT 09/27/2023 5:03 PM EDT Angelo Vazquez MD LAB BLOOD ORDERA BLES Performing Organization Address [facility] de Phone Number LABORATORY [facility] [address] [place] [address] * RETICULOCYTE PANEL (09/27/2023 5:03 PM EDT) [facility] Reticulocyte Percent 1.37 0.80 - 1.90 % 09/28/2023 12:13 AM EDT LAB[facility]ATORY [facility] Absolute Reticulocyte 52.6 31.3 - 100.1 K/uL 09/28/2023 12:13 AM EDT LABORATORY [facility] Immature Reticuloctye Fraction 11.9 2.5 - 20.6 % 09/28/2023 12:13 AM EDT LABORATORY [facility] Reticulocyte Hemoglobin 36.9 29.7 - 37.4 pg 09/28/2023 12:13 AM EDT [facility] Blood Venous blood specimen / Unknown Venipuncture / Unknown 09/27/2023 5:03 PM EDT 09/27/2023 5:03 PM EDT Angelo Vazquez MD LAB BLOOD ORDERA BLES Performing Organization Address City/[facility]/ZIP Co de Phone Number LAB[facility]ATORY [facility] [address] [place] [address] * ANEMIA REFLEX CHEMISTRY HOLD (09/27/2023 5:03 PM EDT) Blood Venous blood specimen / Unknown Venipuncture / Unknown 09/27/2023 5:03 PM EDT 09/27/2023 5:03 PM EDT Angelo Vazquez MD LAB BLOOD ORDERA BLES Performing Organization Address City/[facility]/ZIP Co de Phone Number LAB[facility]ATORY [facility] [address] [place] [address] * (ABNORMAL) DIFFERENTIAL, AUTOMATED (09/27/2023 5:03 PM EDT) WBC 5.79 4.00 - 10.80 K/uL 09/27/2023 11:46 PM EDT [facility] Neutrophils % 52.8 40.0 - 75.0 % 09/27/2023 11:46 PM EDT [facility] Lymphocytes % 26.4 18.0 - 42.0 % 09/27/2023 11:46 PM EDT [facility] Monocytes % 12.1(H) 1.0 - 11.0 % 09/27/2023 11:46 PM EDT [facility] Eosinophils % 7.9(H) 0.0 - 6.0 % 09/27/2023 11:46 PM EDT [facility] Basophils % 0.5 0.0 - 2.0 % 09/27/2023 11:46 PM EDT [facility] Immature Granulocytes % 0.3 0.0 - 2.0 % 09/27/2023 11:46 PM EDT [facility] Absolute Neutrophils 3.05 1.80 - 7.70 K/uL 09/27/2023 11:46 PM EDT [facility] Absolute Lymphocytes 1.53 1.00 - 4.80 K/ul 09/27/2023 11:46 PM EDT [facility] Absolute Monocytes 0.70 0.00 - 1.10 K/uL 09/27/2023 11:46 PM EDT [facility] Absolute Eosinophils 0.46 0.00 - 0.70 K/uL 09/27/2023 11:46 PM EDT [facility] Absolute Basophils 0.03 0.00 - 0.20 K/uL 09/27/2023 11:46 PM EDT [facility] Absolute Immature Granulocytes 0.02 0.00 - 0.20 K/uL 09/27/2023 11:46 PM EDT [facility] Blood Venous blood specimen / Unknown Venipuncture / Unknown 09/27/2023 5:03 PM EDT 09/27/2023 5:03 PM EDT Angelo Vazquez MD LAB BLOOD ORDERA BLES Performing Organization Address City/State/[facility] Co de Phone Number LAB[facility]ATORY [facility] [address] [place] [address] * (ABNORMAL) ANEMIA CBC (09/27/2023 5:03 PM EDT) WBC 5.79 4.00 - 10.80 K/uL 09/27/2023 11:46 PM EDT [facility] RBC 3.87 4.50 - 5.25 M/uL 09/27/2023 11:46 PM EDT [facility] HGB 12.0(L) 14.0 - 16.8 g/dL 09/27/2023 11:46 PM EDT LAB[facility]ORY [facility] Comment: Anemia reflex testing triggers on a HGB < 12.0 for Females and HGB < 13.0 for Males in accordance with the WHO Anemia Guidelines Anemia reflex testing triggers on a HGB < 12.0 for Females and HGB < 13.0 for Males in accordance with the WHO Anemia Guidelines HCT 35.5(L) 40.0 - 48.4 % 09/27/2023 11:46 PM EDT [facility] MCV 91.7 82.0 - 99.5 fL 09/27/2023 11:46 PM EDT [facility] MCH 31.0 27.0 - 34.0 pg 09/27/2023 11:46 PM EDT [facility] MCHC 33.8 32.0 - 36.0 g/dL 09/27/2023 11:46 PM EDT [facility] RDW 15.0 11.5 - 15.5 % 09/27/2023 11:46 PM EDT [facility] PLT 161 140 - 400 K/uL 09/27/2023 11:46 PM EDT [facility] MPV 9.1 6.6 - 11.1 fL 09/27/2023 11:46 PM EDT [facility] nRBCs 0 <=0 /100 WBCs 09/27/2023 11:46 PM EDT [facility] Blood Venous blood specimen / Unknown Venipuncture / Unknown 09/27/2023 5:03 PM EDT 09/27/2023 5:03 PM EDT Angelo Vazquez MD LAB BLOOD ORDERA BLES LAB[facility] [address] [place] [address] * (ABNORMAL) FERRITIN (09/27/2023 5:03 PM EDT) Pathologist [facility] Ferritin 434(H) 30 - 400 ng/mL 09/28/2023 2:38 AM EDT LABORATORY [facility] Blood Venous blood specimen / Unknown Venipuncture / Unknown 09/27/2023 5:03 PM EDT 09/27/2023 5:03 PM EDT Angelo Vazquez MD LAB BLOOD ORDERA BLES LABORATORY [facility] [address] [place] [address] * IRON SCREEN, INCLUDING TIBC (09/27/2023 5:03 PM EDT) Pathologist [facility] Iron 98 45 - 176 ug/dL 09/28/2023 2:02 AM EDT [facility] Iron Binding Capacity 288 250 - 425 ug/dL 09/28/2023 2:02 AM EDT [facility] Transferrin Saturation Percent 34 15 - 55 % 09/28/2023 2:02 AM EDT [facility] Blood Venous blood specimen / Unknown Venipuncture / Unknown 09/27/2023 5:03 PM EDT 09/27/2023 5:03 PM EDT Angelo Vazquez MD LAB BLOOD ORDERA BLES LABORATORY [facility] [address] [place] [address] * (ABNORMAL) BASIC METABOLIC PANEL (09/27/2023 5:03 PM EDT) Pathologist [facility] BUN 17 6 - 20 mg/dL 09/28/2023 1:27 AM EDT [facility] Creatinine 0.9 0.6 - 1.2 mg/dL 09/28/2023 1:27 AM EDT [facility] Estimated Glomerular Filtration Rate 84 >=60 mL/min 09/28/2023 1:27 AM EDT [facility] Comment:eGFR is calculated b ased on the CKD-EPI 2020 equation Sodium 128(L) 135 - 146 mmol/L 09/28/2023 1:27 AM EDT [facility] Potassium 5.0 3.5 - 5.1 mmol/L 09/28/2023 1:27 AM EDT [facility] Chloride 92(L) 98 - 107 mmol/L 09/28/2023 1:27 AM EDT [facility] CO2 23 22 - 32 mmol/L 09/28/2023 1:27 AM EDT [facility] Anion Gap 13 7 - 15 mmol/L 09/28/2023 1:27 AM EDT [facility] Glucose 98 70 - 120 mg/dL 09/28/2023 1:27 AM EDT [facility] Calcium 9.7 8.4 - 10.2 mg/dL 09/28/2023 1:27 AM EDT [facility] Blood Venous blood specimen / Unknown Venipuncture / Unknown 09/27/2023 5:03 PM EDT 09/27/2023 5:03 PM EDT Angelo Vazquez MD LAB BLOOD ORDERA BLES LABORATORY [facility] [address] [facility] [facility] [place] [id number] documented in this encounter Visit Diagnoses Diagnosis Syncope and collapse- Primary Chronic systolic heart failure (HCC) Chronic systolic heart failure DM kidney disease (HCC) Type II or unspecified type diabetes mellitus with renal manifestations, not stated as uncontrolled Hyponatremia Hyposmolality and/or hyponatremia Iron deficiency anemia, unspecified iron deficiency anemia type Generalized weakness Other malaise and fatigue Spinal stenosis of lumbar region with neurogenic claudication Spinal stenosis, lumbar region, with neurogenic claudication documented in this encounter Advance Directives Latest Code Status on File Code Status Date Activated Date Inactivated Comments No Code 03/04/2022 8:43 AM 03/04/2022 2:28 PM This order reflects the patients wishes and were consensually agreed upon. Question Answer Comments Discussion of Advance Directives occurred with: Patient Does the patient have a Living Will? No Does the patient have Health Care Power of Planer Operator / Grader? No Code Status History Code Status Date Activated Date Inactivated Comments No Code 02/18/2022 7:51 AM 02/18/2022 2:15 PM This order reflects the patients wishes and were consensually agreed upon. Question Answer Comments Discussion of Advance Directives occurred with: Patient Does the patient have a Living Will? No Does the patient have Health Care Power of Planer Operator / Grader? No Full Code 01/04/2019 6:51 PM 01/06/2019 [...] the patient have Health Care Power of Planer Operator / Grader? No Care Teams Manager Electrical Relationship Specialty Start Date End Date Angelo Vazquez MD [address] [place] [address] PCP - General Family Medicine 06/24/14 documented as of this encounter"
--- OUTSIDE RECORDS SUMMARY | 2023-11-15 14:37 | External Medical Summary | Summary of Care ---
Author Name Unknown Organization [facility] Address [address] [place] [facility] [place] [address] Phone [phone] Care Team Providers Care Cold Meat Chef Name Role Phone Angelo Briones MD Primary Care Provider + Reason for Visit * Reason Comments Medication Refill Encounter Details Date Type Department Care Team (Late st Contact Info) Description 10/12/2023 Refill Family Practice [facility] [address] [place] [id number] Angelo Briones MD [address] [place] [...] Tablet (Lipitor)Indicatio ns:Paroxysmal atrial fibrillation (HCC),CAD in [place] artery,S/P CABG x 3 TAKE ONE TABLET [...] MG Sublingual Tablet Sublingual (Nitrostat)Indicat ions:CAD in [place] artery DISSOLVE 1 TABLET UNDER THE TONGUE [...] the morning. 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 Prior: 5 stents-hx angina. Drug eluting, & [...] mRNA, LNP-s, No Pre serve, 2-Dose Series (Proficient) 06/11/2021,10/09/2020,09/19/2020 Covid-19, Mrna, Lnp-s, Pf, B ivalent, [...] encounter Miscellaneous Notes * Telephone Encounter - Amanda Cleary RPh - 10/13/2023 10:05 AM EDT Signed Prescriptions: Disp Refills Furosemide 40 MG Oral Tablet (Lasix) 30 Tab*2 Sig: Take 1 Tablet by mouth in the morning. Authorizing Provider: ANGELO BRIONES User: AMANDA CLEARY * Telephone Encounter - Amanda Cleary [facility] - 10/13/2023 10:03 AM EDT Images from the original note were not included. Per 09/26 telephone encounter: Angelo, I would cut back on his Lasix to a once a day dose. I would also cut back on his Toprol to 25mg daily. Let's see how he does after that. Nursing, please arrange for a follow-up appointment with us in the next 1-2 weeks. Cardio is in agreement with the recommendation per 10/04 OV. Thank you, Amanda Cleary, PharmD Clinical Pharmacist [facility] ([facility]) (Formerly Telepharmacy) [phone] 10/13/2023, 10:04 AM documented in this encounter Plan of Treatment Upcoming Encounters Date Type Department Care Team (Late st Contact Info) Description 11/30/2023 3:00 PM EDT Office Visit Nephrology, [facility] [address] [place] [address] Jose Winter MD [address] [facility] [place] [address] 12/26/2023 3:00 PM EDT Office Visit Cardiology, [facility] [address] [facility] [place] [address] Ewelina Poole PA-C [address] [place] [address] 01/24/2024 1:30 PM EDT Office Visit Urology, [facility] [address] [place] [address] George Tran MD [address] [place] [address] [place] [address] 03/13/2024 3:00 PM EDT Cardiac Studies Cardiac Studies, [facility] [address] [place] [address] Health Maintenance Due Date Last Done Comments [...] this encounter Medical Devices Implanted Type Area Drug Coordinator Device Identifier Shelf Expiration Date Model / Serial / Lot Sut Steel 6 M654g - [id number] Implanted:Qty: 4 on 05/30/2014 by Stanislav Hililard MD at [place] [facility] N/A: Chest JNJ : [employer] 02/07/2019 M654G / / [id number] Marker Coronary [facility] - [id number] Implanted:Qty: 2 on 05/30/2014 by Stanislav Hilliard MD at [place] [facility] N/A: Aorta [employer] 03/10/2017 [facility] / / [id number] Lens Intraoc 20.5 - [id number] - [id number] Implanted:Qty: 1 on 02/18/2022 by Yandel Bowens MD at OR [facility] Left: Eye [employer] 11/07/2026 [id number] / [id number] / [id number] Lens Intraoc 21.5 - [id number] - [id number] Implanted:Qty: 1 on 03/04/2022 by Yandel Bowens MD at OR [facility] Right: Eye [employer]OM[employer] 10/08/2026 [id number] / [id number] / [id number] documented as of this encounter Advance Directives [...] the patient have Health Care Power of Aviation Boatswain'S Mate? No Code Status History Code Status Date Activated Date Inactivated Comments No Code 02/18/2022 7:51 AM 02/18/2022 2:15 PM This order reflects the patients wishes and were consensually agreed upon. Question Answer Comments Discussion of Advance Directives occurred with: Patient Does the patient have a Living Will? No Does the patient have Health Care Power of Aviation Boatswain'S Mate? No Full Code 01/04/2019 6:51 PM 01/06/2019 [...] the patient have Health Care Power of Aviation Boatswain'S Mate? No Care Teams Cold Meat Chef Relationship Specialty Start Date End Date Angelo Briones MD [address] [place] [address] PCP - General Family Medicine 06/24/14 documented as of this encounter
--- OUTSIDE RECORDS SUMMARY | 2023-11-15 14:38 | External Medical Summary | Summary of Care ---
Author Name Unknown Organization [facility] Address [address] [place] [facility] [place] [address] Phone [phone] Care Team Providers Care Director Chemistry Name Role Phone Angelo Vazquez MD Primary Care Provider + Reason for Visit * Reason Onset Date Comments Returning Call 09/27/2023 Encounter Details Date Type Department Care Team (Late st Contact Info) Description 09/27/2023 Telephone Family Practice [facility] [address] [place] [address] Angelo Vazquez MD [address] [place] [address] Returning Call Allergies Active Allergy Reactions Criticality Noted Date Comments Bee Venom 12/30/2015 Iodine Other (Please comment) 08/18/2011 Pt says not to use due to shellfish allergy Morphine Anaphylaxis High 08/18/2011 Penicillins Rash 08/18/2011 Shellfish Allergy Edema airway High 08/18/2011 documented as of this encounter (statuses as of 09/30/2023) Medications Medication Sig Dispensed Refills Start Date [...] Tablet (Lipitor)Indicatio ns:Paroxysmal atrial fibrillation (HCC),CAD in [place] artery,S/P CABG x 3 TAKE ONE TABLET BY MOUTH DAILY 90 Tablet 3 01/20/2023 4 Active Sodium Chloride 1 GM Oral Tablet Take 1 Tablet by mouth in the morning. 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 Prior: 5 stents-hx angina. Drug eluting, & bare metal. Most recent 11/18 1986 LCAD PTCA 12.04 LAD & mid circ drug eluting stents 8.08-distal RCA non drug eluting stent 11/13/10 LAD Ion drug eluting stent 01/14/11 Cardiolite EF55% no ischemia Gastroesophageal reflux disease Overview: Particles are regurgitant, some acid reflux, not much coughing Dyslipidemia documented as of this encounter (statuses as of 09/30/2023) Resolved Problems Problem Noted Date Diagnosed Date [...] as of this encounter (statuses as of 09/30/2023) Immunizations Name Administration Dates Next Due COVID-19 mRNA, LNP-s, No Pre serve, 2-Dose Series (Overblog) 06/11/2021,10/09/2020,09/19/2020 Covid-19, Mrna, Lnp-s, Pf, B ivalent, [...] encounter Miscellaneous Notes * Telephone Encounter - Rosana Segura OSA - 09/30/2023 9:04 AM EDT Spoke with Pt's , appt scheduled October 04 with . * Telephone Encounter - Ac Dumont OSA - 09/29/2023 9:31 AM EDT LM for patient to call back and to schedule. * Telephone Encounter - Peg Castle LPN - 09/28/2023 1:46 PM EDT Patient is aware and verbalizes understanding. * Telephone Encounter - Amarilis Guardado OSA - 09/28/2023 1:42 PM EDT Reason for patient's call: Returning call Caller was transferred to [facility] at the nurse line. * Telephone Encounter - Amarilis Herrera LPN - 09/28/2023 1:27 PM EDT LMOM for patient to return call, * Telephone Encounter - Angelo Vazquez MD - 09/28/2023 8:26 AM EDT Nursing-please call /patient--discussed with Dr Middleton--he should back on his Lasix to a once a day dose (morning). I would also cut back on his Toprol to 25 mg daily (morning) Cardiology will contact them for sooner f/u appt Cc: team * Telephone Encounter - Angelo Vazquez MD - 09/27/2023 4:36 PM EDT Adam Linton & Lanny, I saw Mr. Ch today. says he has had 4-5 episodes syncope at night, typically in bed, checkedBP was down to 79/49,. Pulse 49-62. Bp s running 80s-114/50s-70s the last week. He's on lasix 40mg BID (she held the last 2 doses) and Toprol 25mg bID for his PAF. Echo shows some worsening I'm getting new Zio. I haven't written my notes up yet from today. Please advise on how you'd like to approach his lasix/toprol moving forward, contact . Thank you. documented in this encounter Plan of Treatment Upcoming Encounters Date Type Department Care Team (Late st Contact Info) Description 10/05/2023 2:30 PM EDT Office Visit Cardiology, [facility] [address] [facility] [place] [address] Dannie Middleton, [address] [facility] [place] [address] 11/30/2023 3:00 PM EDT Office Visit Nephrology, [facility] [address] [facility] [place] [address] Jose Winter MD [address] [facility] [place] [address] 01/24/2024 1:30 PM EDT Office Visit Urology, [facility] [place] [address] George Tran MD [address] [facility] [address] [place] [address] 03/13/2024 3:00 PM EDT Cardiac Studies Cardiac Studies, [facility] [address] [facility] [place] [address] Health Maintenance Due Date Last Done Comments [...] this encounter Medical Devices Implanted Type Area Engine Mechanic Device Identifier Shelf Expiration Date Model / Serial / Lot Sut Steel 6 M654g - [id number] Implanted:Qty: 4 on 05/30/2014 by Stanislav Hilliard MD at [place] [facility] N/A: Chest JNJ : [employer] 02/07/2019 M654G / / [id number] Marker Coronary [place] - [id number] Implanted:Qty: 2 on 05/30/2014 by Stanislav Hilliard MD at [place] [facility] N/A: Aorta [employer] 03/10/2017 [employer] / / [id number] Lens Intraoc 20.5 - [id number] - [id number] Implanted:Qty: 1 on 02/18/2022 by Yandel Bowens MD at OR [facility] Left: Eye [employer]OM[employer] 11/07/2026 [id number] / [id number] / [id number] Lens Intraoc 21.5 - [id number] - [id number] Implanted:Qty: 1 on 03/04/2022 by Yandel Bowens MD at OR [facility] Right: Eye [employer]OM[employer] 10/08/2026 [id number] / [id number] / [id number] documented as of this encounter Advance Directives [...] the patient have Health Care Power of Timber Harvester Operator? No Code Status History Code Status Date Activated Date Inactivated Comments No Code 02/18/2022 7:51 AM 02/18/2022 2:15 PM This order reflects the patients wishes and were consensually agreed upon. Question Answer Comments Discussion of Advance Directives occurred with: Patient Does the patient have a Living Will? No Does the patient have Health Care Power of Timber Harvester Operator? No Full Code 01/04/2019 6:51 PM [...] the patient have Health Care Power of Timber Harvester Operator? No Care Teams Director Chemistry Relationship Specialty Start Date End Date Angelo Vazquez MD [address] [place] [address] PCP - General Family Medicine 06/24/14 documented as of this encounter
--- OUTSIDE RECORDS SUMMARY | 2023-11-15 14:38 | External Medical Summary | Summary of Care ---
Author Name Unknown Organization [facility] Address [address] [place] [facility] [place] [address] Phone [phone] Care Team Providers Care Email Campaign Manager Name Role Phone Angelo Vazquez MD Primary Care Provider + Reason for Visit * Reason Onset Date Comments Returning Call 09/27/2023 Encounter Details Date Type Department Care Team (Late st Contact Info) Description 09/27/[address] [facility] [address] [place] [address] Angelo Vazquez MD [address] [place] [address] Returning Call Allergies Active Allergy Reactions Criticality Noted Date Comments Bee Venom 12/30/2015 Iodine Other (Please comment) 08/18/2011 Pt says not to use due to shellfish allergy Morphine Anaphylaxis High 08/18/2011 Penicillins Rash 08/18/2011 Shellfish Allergy Edema airway High 08/18/2011 documented as of this encounter (statuses as of 09/29/2023) Medications Medication Sig Dispensed Refills Start Date [...] Tablet (Lipitor)Indication s:Paroxysmal atrial fibrillation (HCC),CAD in [place] artery,S/P CABG x 3 TAKE ONE TABLET BY MOUTH DAILY 90 Tablet 3 01/20/2023 01/20/2024 Active Sodium Chloride 1 GM Oral Tablet Take 1 Tablet by mouth in the morning. 30 Tablet 3 03/31/2023 Active Additional Information Patient not taking.Reported on 08/23/2023 metFORMIN HCl 500 MG Oral Tablet (Glucophage)Indicat ions:Type 2 diabetes mellitus with hemoglobin A1c goal of less than 8.0% ([facility]) TAKE ONE TABLET BY MOUTH DAILY 90 Tablet 3 04/21/2023 04/20/2024 Active Metoprolol Succinate ER 25 MG Oral Tablet Extended Release 24 Hour (toPROL XL) TAKE ONE TABLET BY MOUTH DAILY 90 Tablet 1 04/28/2023 04/27/2024 Active Nitroglycerin 0.4 MG Sublingual Tablet Sublingual (Nitrostat)Indicati ons:CAD in [place] artery DISSOLVE 1 TABLET UNDER THE TONGUE NEEDED FOR CHEST PAIN, MAY REPEAT EVERY 5 MINUTES FOR 3 TOTAL DOSES 25 Tablet 3 05/30/2023 Active Escitalopram Oxalate 10 MG Oral Tablet (Lexapro)Indication s:Mild episode of recurrent major depressive disorder (HCC) Take 1 Tablet by mouth in the morning. 30 Tablet 3 06/07/2023 10/05/2023 Active Furosemide 40 MG Oral Tablet (Lasix) [...] before bedtime. 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 Prior: 5 stents-hx angina. Drug eluting, & bare metal. Most recent 11/18 1986 LCAD PTCA 12.04 LAD & mid circ drug eluting stents 8.08-distal RCA non drug eluting stent 11/13/10 LAD Ion drug eluting stent 01/14/11 Cardiolite EF55% no ischemia Gastroesophageal reflux disease Overview: Particles are regurgitant, some acid reflux, not much coughing Dyslipidemia documented as of this encounter (statuses as of 09/29/2023) Resolved Problems Problem Noted Date Diagnosed Date [...] planning / HCP?--concern for depression-trial Rx consider 2. Needs Shingrix, Sleep apnea EVAL 02/28 FOB [...] as of this encounter (statuses as of 09/29/2023) Immunizations Name Administration Dates Next Due COVID-19 mRNA, LNP-s, No Pre serve, 2-Dose Series (365net) 06/11/2021,10/09/2020,09/19/2020 Covid-19, Mrna, Lnp-s, Pf, B ivalent, [...] encounter Miscellaneous Notes * Telephone Encounter - Ac Dumont OSA - 09/29/2023 9:31 AM EDT LM for patient to call back and to schedule. * Telephone Encounter - Peg Castle LPN - 09/28/2023 1:46 PM EDT Patient is aware and verbalizes understanding. * Telephone Encounter - Amarilis Guardado OSA - 09/28/2023 1:42 PM EDT Reason for patient's call: Returning call Caller was transferred to [facility] at the nurse line. * Telephone [...] 11/30/2023 3:00 PM EDT Office Visit Nephrology, [place] [address] [facility] [place], [place] [address] Jose Winter MD [address] [facility] [place] [address] 01/24/2024 1:30 PM EDT Office Visit Urology, [facility] 132 [facility] [place] [address] George Tran MD [address] [place] [address] [place] [address] 03/13/2024 3:00 PM EDT Cardiac Studies Cardiac Studies, [facility] 132 [facility] [place] [address] Health Maintenance Due Date Last Done Comments [...] this encounter Medical Devices Implanted Type Area Canned Food Reconditioning Inspector Device Identifier Shelf Expiration Date Model / Serial / Lot Sut Steel 6 M654g - [id number] Implanted:Qty: 4 on 05/30/2014 by Stanislav Hilliard MD at OR [facility] N/A: Chest JNJ : [employer] 02/07/2019 M654G / / [id number] Marker Coronary [facility] - [id number] Implanted:Qty: 2 on 05/30/2014 by Stanislav Hilliard MD at OR [facility] N/A: Aorta [employer] 03/10/2017 [facility] / / [id number] Lens Intraoc 20.5 - [id number] - [id number] Implanted:Qty: 1 on 02/18/2022 by Yandel Bowens MD at [place] [facility] Left: Eye [employer] 11/07/2026 [id number] / [id number] / [id number] Lens Intraoc 21.5 - [id number] - [id number] Implanted:Qty: 1 on 03/04/2022 by Yandel Bowens MD at [place] [facility] Right: Eye [employer]OM[employer] 10/08/2026 [id number] / [id number] / [id number] documented as of this encounter Advance Directives [...] the patient have Health Care Power of Rotary Dryer Operator? No Code Status History Code Status Date Activated Date Inactivated Comments No Code 02/18/2022 7:51 AM 02/18/2022 2:15 PM This order reflects the patients wishes and were consensually agreed upon. Question Answer Comments Discussion of Advance Directives occurred with: Patient Does the patient have a Living Will? No Does the patient have Health Care Power of Rotary Dryer Operator? No Full Code 01/04/2019 6:51 PM [...] the patient have Health Care Power of Rotary Dryer Operator? No Care Teams Email Campaign Manager Relationship Specialty Start Date End Date Angelo Vazquez MD [address] [place] [address] PCP - General Family Medicine 06/24/14 documented as of this encounter
--- OUTSIDE RECORDS SUMMARY | 2023-11-15 14:38 | External Medical Summary | Summary of Care ---
Author Name Unknown Organization [facility] Address [address] [place] [facility] [place] [address] Phone [phone] Care Team Providers Care Sewer Separation Designer Name Role Phone Angelo Vazquez MD Primary Care Provider + Reason for Visit * Reason Onset Date Comments Returning Call 09/27/2023 Encounter Details Date Type Department Care Team (Late st Contact Info) Description 09/27/2023 Telephone Family Practice [facility] [address] [place] [address] Angelo Vazquez MD [address] [place] [address] Returning Call Allergies Active Allergy Reactions Criticality Noted Date Comments Bee Venom 12/30/2015 Iodine Other (Please comment) 08/18/2011 Pt says not to use due to shellfish allergy Morphine Anaphylaxis High 08/18/2011 Penicillins Rash 08/18/2011 Shellfish Allergy Edema airway High 08/18/2011 documented as of this encounter (statuses as of 09/28/2023) Medications Medication Sig Dispensed Refills Start Date [...] Tablet (Lipitor)Indication s:Paroxysmal atrial fibrillation (HCC),CAD in [place] artery,S/P CABG x 3 TAKE ONE TABLET BY MOUTH DAILY 90 Tablet 3 01/20/2023 01/20/2024 Active Sodium Chloride 1 GM Oral Tablet Take 1 Tablet by mouth in the morning. 30 Tablet 3 03/31/2023 Active Additional Information Patient not taking.Reported on 08/23/2023 metFORMIN HCl 500 MG Oral Tablet (Glucophage)Indicat ions:Type 2 diabetes mellitus with hemoglobin A1c goal of less than 8.0% ([facility]) TAKE ONE TABLET BY MOUTH DAILY 90 Tablet 3 04/21/2023 04/20/2024 Active Metoprolol Succinate ER 25 MG Oral Tablet Extended Release 24 Hour (toPROL XL) TAKE ONE TABLET BY MOUTH DAILY 90 Tablet 1 04/28/2023 04/27/2024 Active Nitroglycerin 0.4 MG Sublingual Tablet Sublingual (Nitrostat)Indicati ons:CAD in [place] artery DISSOLVE 1 TABLET UNDER THE TONGUE [...] as of this encounter (statuses as of 09/28/2023) Active Problems Problem Noted Date Diagnosed Date [...] Dysthymia 11/30/2011 Coronary artery disease invo lving [place] coronary artery of [place] heart without angina pectoris Overview: 05/30/14 3V CAB[place] [facility] [place] Prior: 5 stents-hx angina. Drug eluting, & bare metal. Most recent 11/18 1986 LCAD PTCA 12.04 LAD & mid circ drug eluting stents 8.08-distal RCA non drug eluting stent 11/13/10 LAD Ion drug eluting stent 01/14/11 Cardiolite EF55% no ischemia Gastroesophageal reflux disease Overview: Particles are regurgitant, some acid reflux, not much coughing Dyslipidemia documented as of this encounter (statuses as of 09/28/2023) Resolved Problems Problem Noted Date Diagnosed Date [...] as of this encounter (statuses as of 09/28/2023) Immunizations Name Administration Dates Next Due COVID-19 mRNA, LNP-s, No Pre serve, 2-Dose Series ([employer]) 06/11/2021,10/09/2020,09/19/2020 Covid-19, Mrna, Lnp-s, Pf, B ivalent, [...] encounter Miscellaneous Notes * Telephone Encounter - Peg Castle LPN - 09/28/2023 1:46 PM EDT Patient is aware and verbalizes understanding. * Telephone Encounter - Amarilis Guardado OSA - 09/28/2023 1:42 PM EDT Reason for patient's call: Returning call Caller was transferred to [facility] at the nurse line. * Telephone Encounter [...] Description 11/30/2023 3:00 PM EDT Office Visit Mohan Jones [address] [place] [address] Jose Winter MD [address] [place] [address] 01/24/2024 1:30 PM EDT Office Visit Urology, [facility] [address] [facility] [place] [address] George Tran MD [address] [facility] [address] [place] [address] 03/13/2024 3:00 PM EDT Cardiac Studies Cardiac Studies, [facility] [address] [facility] [place] [address] Health Maintenance Due Date Last Done Comments [...] this encounter Medical Devices Implanted Type Area Hog Driver Device Identifier Shelf Expiration Date Model / Serial / Lot Sut Steel 6 M654g - [id number] Implanted:Qty: 4 on 05/30/2014 by Stanislav Hilliard MD [place] [facility] [place]/A: Chest JNJ : [employer] 02/07/2019 M654G / / [id number] Marker Coronary [facility] - [id number] Implanted:Qty: 2 on 05/30/2014 by Stanislav Hilliard MD at [place] [facility] [place] N/A: Aorta [employer] 03/10/2017 [facility] / / [id number] Lens Intraoc 20.5 - [id number] - [id number] Implanted:Qty: 1 on 02/18/2022 by Yandel Bowens MD at OR [facility] Left: Eye [employer]OM[employer] 11/07/2026 [id number] / [id number] / [id number] Lens Intraoc 21.5 - [id number] - [id number] Implanted:Qty: 1 on 03/04/2022 by Yandel Bowens MD at OR [facility] Right: Eye BAUSCH [employer] LOMB 10/08/2026 [id number] / [id number] / [id number] documented as of this encounter Advance Directives [...] the patient have Health Care Power of Director Of Social Services? No Code Status History Code Status Date Activated Date Inactivated Comments No Code 02/18/2022 7:51 AM 02/18/2022 2:15 PM This order reflects the patients wishes and were consensually agreed upon. Question Answer Comments Discussion of Advance Directives occurred with: Patient Does the patient have a Living Will? No Does the patient have Health Care Power of Director Of Social Services? No Full Code 01/04/2019 6:51 PM 01/06/2019 [...] the patient have Health Care Power of Director Of Social Services? No Care Teams Sewer Separation Designer Relationship Specialty Start Date End Date Angelo Vazquez MD [address] [facility] [place] [address] PCP - General Family Medicine 06/24/14 documented as of this encounter
--- OUTSIDE RECORDS SUMMARY | 2023-11-15 14:38 | External Medical Summary | Summary of Care ---
Author Name Unknown Organization [facility] Address [address] [place] [facility] [place] [place] [address] Phone [phone] Care Team Providers Care Coupler Name Role Phone Angelo Briones MD Primary Care Provider + Reason for Visit * Reason Comments Medication Refill Encounter Details Date Type Department Care Team (Late st Contact Info) Description 09/28/2023 Refill Family Practice [facility] [address] [place] [address] Ally Jordan CRNP [address] [facility] [place] [address] Mild episode of recurrent major depressive disorder (HCC) Allergies Active Allergy Reactions Criticality Noted [...] Tablet (Lipitor)Indicatio ns:Paroxysmal atrial fibrillation (HCC),CAD in [place] artery,S/P CABG x 3 TAKE ONE TABLET BY MOUTH DAILY 90 Tablet 3 01/20/2023 4 Active Sodium Chloride 1 GM Oral Tablet Take 1 Tablet by mouth in the morning. 30 Tablet 3 03/31/2023 Active Additional Information Patient not taking.Reported on 08/23/2023 metFORMIN HCl 500 MG Oral Tablet (Glucophage)Indica tions:Type 2 diabetes mellitus with hemoglobin A1c goal of less than 8.0% ([facility]) TAKE ONE TABLET BY MOUTH DAILY 90 Tablet 3 04/21/2023 4 Active Metoprolol Succinate ER 25 MG Oral Tablet Extended Release 24 Hour (toPROL XL) TAKE ONE TABLET BY MOUTH DAILY 90 Tablet 1 04/28/2023 4 Active Nitroglycerin 0.4 MG Sublingual Tablet Sublingual (Nitrostat)Indicat ions:CAD in [place] artery DISSOLVE 1 TABLET UNDER THE TONGUE [...] the morning. 90 Tablet 3 09/29/2023 Active Escitalopram Oxalate 10 MG Oral Tablet [...] Mild 2014 PAF (paroxysmal atrial fibrillation) 07/14/2012 snf current use of anticoagulant therapy 0 07/14/2012 Overview: ICD-10 update of inactive term Dysthymia 11/30/2011 Coronary artery disease invo lving [place] coronary artery of [place] heart without angina pectoris Overview: 05/30/14 3V CABG [facility]. Prior: 5 stents-hx angina. Drug eluting, & [...] mRNA, LNP-s, No Pre serve, 2-Dose Series ([employer]) 06/11/2021,10/09/2020,09/19/2020 Covid-19, Mrna, Lnp-s, Pf, B ivalent, [...] encounter Miscellaneous Notes * Telephone Encounter - Vernon Gardner [facility] - 09/29/2023 10:43 AM EDT Signed Prescriptions: Disp Refills Escitalopram Oxalate 10 MG Oral Tablet (Le*90 Tab*3 Sig: Take 1 Tablet by mouth in the morning.Authorizing Provider: ANGELO BRIONES User: VERNON GARDNER documented in this encounter Plan of Treatment Upcoming Encounters Date Type Department Care Team (Late st Contact Info) Description 10/05/2023 2:30 PM EDT Office Visit Cardiology, [facility] [address] [place] [address] Dannie Middleton DO [address] [place] [address] 11/30/2023 3:00 PM EDT Office Visit Nephrology, [facility] [address] [facility] [place] [address] Jose Winter MD [address] [facility] [place] [address] 01/24/2024 1:30 PM EDT Office Visit Urology, [facility] [address] [address] George Tran MD [address] [facility] [address] [place] [address] 03/13/2024 3:00 PM EDT Cardiac Studies Cardiac Studies, [facility] [address] [place] [address] Health Maintenance Due Date Last Done Comments [...] this encounter Medical Devices Implanted Type Area Restorative Aide Device Identifier Shelf Expiration Date Model / Serial / Lot Sut Steel 6 M654g - [id number] Implanted:Qty: 4 on 05/30/2014 by Stanislav Hilliard MD at OR [facility] N/A: Chest JNJ : [employer] 02/07/2019 M654G / / [id number] Marker Coronary [facility] - [id number] Implanted:Qty: 2 on 05/30/2014 by Stanislav Hilliard MD at OR [facility] N/A: Aorta [employer] 03/10/2017 [facility] / / [id number] Lens Intraoc 20.5 - [id number] - [id number] Implanted:Qty: 1 on 02/18/2022 by Yandel Bowens MD at OR [facility] Left: Eye [employer]USCH [employer]OMB 11/07/2026 [id number] / [id number] / [id number] Lens Intraoc 21.5 - [id number] - [id number] Implanted:Qty: 1 on 03/04/2022 by Yandel Bowens MD at OR [facility] Right: Eye [employer]OM[employer] 10/08/2026 [id number] / [id number] / [id number] documented as of this encounter Visit Diagnoses Diagnosis Mild episode of recurrent major depressive disorder (HCC) documented in this encounter Advance Directives [...] the patient have Health Care Power of Card Seller? No Code Status History Code Status Date Activated Date Inactivated Comments No Code 02/18/2022 7:51 AM 02/18/2022 2:15 PM This order reflects the patients wishes and were consensually agreed upon. Question Answer Comments Discussion of Advance Directives occurred with: Patient Does the patient have a Living Will? No Does the patient have Health Care Power of Card Seller? No Full Code 01/04/2019 6:51 PM 01/06/2019 [...] the patient have Health Care Power of Card Seller? No Care Teams Coupler Relationship Specialty Start Date End Date Angelo Brionse MD [address] [place] [address] PCP - General Family Medicine 06/24/14 documented as of this encounter
--- OUTSIDE RECORDS SUMMARY | 2023-11-15 14:38 | External Medical Summary | Summary of Care ---
Author Name Unknown Organization [facility] Address [address] [place] [facility] [place] [address] Phone [phone] Care Team Providers Care Cook Specialty Name Role Phone Angelo Vazquez MD Primary Care Provider + Reason for Visit * Reason Onset Date Comments Returning Call 09/27/2023 Encounter Details Date Type Department Care Team (Late st Contact Info) Description 09/27/2023 Telephone Family Practice [facility] [address] [place] [address] [...] Tablet (Lipitor)Indication s:Paroxysmal atrial fibrillation (HCC),CAD in [place] artery,S/P CABG x 3 TAKE ONE TABLET BY MOUTH DAILY 90 Tablet 3 01/20/2023 01/20/2024 Active Sodium Chloride 1 GM Oral Tablet Take 1 Tablet by mouth in the morning. 30 Tablet 3 03/31/2023 Active Additional Information Patient not taking.Reported on 08/23/2023 metFORMIN HCl 500 MG Oral Tablet (Glucophage)Indicat ions:Type 2 diabetes mellitus with hemoglobin A1c goal of less than 8.0% ([facility]) TAKE ONE TABLET BY MOUTH DAILY 90 Tablet 3 04/21/2023 04/20/2024 Active Metoprolol Succinate ER 25 MG Oral Tablet Extended Release 24 Hour (toPROL XL) TAKE ONE TABLET BY MOUTH DAILY 90 Tablet 1 04/28/2023 04/27/2024 Active Nitroglycerin 0.4 MG Sublingual Tablet Sublingual (Nitrostat)Indicati ons:CAD in [place] artery DISSOLVE 1 TABLET UNDER THE TONGUE [...] Mild 2013 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 [place]. Prior: 5 stents-hx angina. Drug eluting, & [...] mRNA, LNP-s, No Pre serve, 2-Dose Series ([employer]) 06/11/2021,10/09/2020,09/19/2020 Covid-19, Mrna, Lnp-s, Pf, B ivalent, [...] call: Returning call Caller was transferred to [facility] at the nurse line. * Telephone Encounter [...] Visit Mohan Jones [address] [place] [address] Jose Winter MD [address] [place] [address] 01/24/2024 1:30 PM EDT Office Visit Urology, [facility] [address] [facility] [place] [address] George Tran MD [address] [facility] [address] [place] [address] 03/13/2024 3:00 PM EDT Cardiac Studies Cardiac Studies, [facility] [address] [facility] [place] [address] Health Maintenance Due Date Last Done Comments [...] this encounter Medical Devices Implanted Type Area Maternity Floor Supervisor Device Identifier Shelf Expiration Date Model / Serial / Lot Sut Steel 6 M654g - [id number] Implanted:Qty: 4 on 05/30/2014 by Stanislav Hilliard MD at OR [facility] N/A: Chest JNJ : [employer] 02/07/2019 M654G / / [id number] Marker Coronary [facility] - [id number] Implanted:Qty: 2 on 05/30/2014 by Stanislav Hilliard MD at OR [facility] N/A: Aorta [employer] 03/10/2017 [facility] / / [id number] Lens Intraoc 20.5 - [id number] - [id number] Implanted:Qty: 1 on 02/18/2022 by Yandel Bowens MD at OR [facility] Left: Eye [employer] 11/07/2026 [id number] / [id number] / [id number] Lens Intraoc 21.5 - [id number] - [id number] Implanted:Qty: 1 on 03/04/2022 by Yandel Bowens MD at OR [facility] Right: Eye [employer]OM[employer] 10/08/2026 [id number] / [id number] / [id number] documented as of this encounter Advance Directives [...] the patient have Health Care Power of Vacuum Drier Operator? No Code Status History Code Status Date Activated Date Inactivated Comments No Code 02/18/2022 7:51 AM 02/18/2022 2:15 PM This order reflects the patients wishes and were consensually agreed upon. Question Answer Comments Discussion of Advance Directives occurred with: Patient Does the patient have a Living Will? No Does the patient have Health Care Power of Vacuum Drier Operator? No Full Code 01/04/2019 6:51 PM 01/06/2019 7:26 PM This order reflects the patients wishes and were consensually agreed upon. Question Answer Comments Discussion of Advance Directives occurred with: Patient Full Code 05/30/2014 1:14 PM 06/04/2014 4:45 PM Thi s order reflects the patients wishes and were consensually agreed upon. Full Code 05/29/2014 7:03 PM 05/30/2014 6:33 AM Th is order reflects the patients wishes and were consensually agreed upon. Question Answer Comments Discussion of Advance Directives occurred with: Patient Does the patient have a Living Will? No Does the patient have Health Care Power of Vacuum Drier Operator? No Care Teams Cook Specialty Relationship Specialty Start Date End Date Angelo Vazquez MD [address] [facility] [place] [address] PCP - General Family Medicine 06/24/14 documented as of this encounter
--- OUTSIDE RECORDS SUMMARY | 2023-11-15 14:38 | External Medical Summary | Summary of Care ---
Author Name Unknown Organization [facility] Address [address] [address] Phone [phone] Care Team Providers Care Database Engineer Name Role Phone Angelo Vazquez MD Primary Care Provider + Reason for Visit * Reason Comments Follow Up Encounter Details Date Type Department Care Team (Latest Contact Info) Description 10/05/2023 2:30 PM EDT Office Visit Cardiology, [facility] [address] [place] [address] Dannie Middleton DO [address] [place] [address] Nonrheumatic aortic valve stenosis*; S/P CABG x 3; PAF (paroxysmal atrial fibrillation) (FORM[facility]); Hyponatremia; SIADH (syndrome of inappropriate ADH production) ([facility]) Allergies Active Allergy Reactions Criticality Noted Date Comments Bee Venom 12/30/2015 Iodine Other (Please comment) 08/18/2011 Pt says not to use due to shellfish allergy Morphine Anaphylaxis High 08/18/2011 Penicillins Rash 08/18/2011 Shellfish Allergy Edema airway High 08/18/2011 documented as of this encounter (statuses as of 10/05/2023) Medications Medication Sig Dispensed Refills Start Date [...] Tablet (Lipitor)Indication s:Paroxysmal atrial fibrillation (HCC),CAD in [place] artery,S/P CABG x 3 TAKE ONE TABLET [...] MG Sublingual Tablet Sublingual (Nitrostat)Indicati ons:CAD in [place] artery DISSOLVE 1 TABLET UNDER THE TONGUE [...] the morning. 90 Tablet 3 09/29/2023 Active documented as of this encounter (statuses as of 10/05/2023) Active Problems Problem Noted Date Diagnosed Date [...] Mild 2013 PAF (paroxysmal atrial fibrillation) 07/14/2012 skilled nursing current use of anticoagulant therapy 0 07/14/2012 Overview: ICD-10 update of inactive term Dysthymia 11/30/2011 Coronary artery disease invo lving [place] coronary artery of [place] heart without angina pectoris Overview: 05/30/14 3V CABG [facility]. Prior: 5 stents-hx angina. Drug [...] as of this encounter (statuses as of 10/05/2023) Resolved Problems Problem Noted Date Diagnosed Date [...] as of this encounter (statuses as of 10/05/2023) Immunizations Name Administration Dates Next Due COVID-19 mRNA, LNP-s, No Pre serve, 2-Dose Series (Barosense) 06/11/2021,10/09/2020,09/19/2020 Covid-19, Mrna, Lnp-s, Pf, B ivalent, [...] Sign Reading Time Taken Comments Blood Pressure 138/82 10/05/2023 2:31 PM EDT Pulse 58 10/05/2023 2:31 PM EDT Temperature - - Respiratory Rate - - Oxygen Saturation 98% 10/05/2023 2:31 PM EDT Inhaled Oxygen Concentration - - Weight 90.3 kg (199 lb) 10/05/2023 2:31 PM EDT Height - - Body Mass Index 26.25 06/07/2023 10:00 AM EST documented in this [...] as of this encounter Progress Notes * Dannie Mdidleton, - 10/05/2023 2:56 PM EDT Cardiology Outpatient Follow-up Srini Ch is a 88 year old male who is seen for follow-up of syncope and falls. HPI: This is an 88-year-old male patient with a history of coronary artery bypass surgery in 2013, moderate aortic stenosis and PAF. The patient has had multiple falls over the past year or so. At 1 time he fell and sustained some rib fractures. He is brought here today in a wheelchair by his son. Following the above falls he is now using a walker mostly. Over the past several weeks according to his he has passed out several times although the time is questionable because she states it happenedat night while he was in bed. He is in quite a bit of pain from previous rib fractures. I received a message from his PCP regarding his recent syncope and we reduced the dose of both his metoprolol and Lasix. According to the patient and his son who agrees, this seems to have resolved the issue of lightheadedness and passing out. The patient is currently wearing a Zio monitor that scheduled to betaken off tomorrow. Past Medical History: Diagnosis Date Angina pectoris syndrome ([facility]) Arthritis Benign neoplasm of colon 03/05/2014 adenomatous polyp, repeat 5 yrs CAD in [place] artery Diabetes type 2, controlled ([facility]) HbA1c < 7, no medication. Diverticulosis of [...] fusion SIADH (syndrome of inappropriate ADH production) ([facility]) 09/03/2020 Due to high fluid PO intake. 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 Z79.01 Diabetic retinopathy (HCC) E11.319 Aortocoronary bypass status Z95.1 Type 2 diabetes mellitus with hemoglobin A1c goal of less than 8.0% (HCC) E11.9 S/P CABG x 3 Z95.1 Dry eyes H04.123 Hyponatremia E87.1 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 S/P lumbar spinal fusion Z98.1 Left renal mass N28.89 Dyslipidemia, goal LDL below 70 E78.5 BPH with obstruction/lower urinary tract symptoms N40.1, 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) ([facility]) E22.2 Acquired hypothyroidism E03.9 Mild episode of recurrent major depressive disorder ([facility]) F33.0 Age-related cataract of both eyes H25.9 HTN, goal below 140/90 I10 Nonrheumatic aortic valve stenosis I35.0 Dyspnea on exertion R06.09 Spinal stenosis of lumbar region with neurogenic claudication M48.062 Medical home patient encounter Z00.8 Renal cyst, acquired, left N28.1 Urge incontinence N39.41 Chronic systolic heart failure ([facility]) I50.22 DM kidney disease ([facility]) E11.21 Past Surgical History: Procedure Laterality Date ARTHROPLASTY KNEE TOTAL 2008 (?) Left knee injury with surgery in 1968, arthritis before surgery [place] ANGIOPLASTY;SINGLE 52 years old BYPASS GRAFT ANGIOGRAPHY W/LEFT HEART CATH Right 01/05/2019 BYPASS GRAFT ANGIOGRAPHY W/LEFT HEART CATH performed by Mouna Castro MD at [facility] CABG, ARTERIAL, SINGLE N/A 05/30/2014 CORONARY ARTERY BYPASS GRAFT USING ARTERY 1 GRAFT performed by Stanislav Hilliard MD at [place] [facility] CABG, ARTERIAL, THREE 05/30/14 (3v, not 1v) CARPAL TUNNEL SURGERY Bilateral 03/2017 Dr Hanna COLONOSCOPY, DIAGNOSTIC (RECTUM) 03/05/2014 adenomatous polyp, diverticulosis, repeat 5 yrs/COLONOSCOPY FLEXIBLE PROXIMAL DIAGNOSTIC performed by Mason Wilkes MD at [facility] COLONOSCOPY, DIAGNOSTIC (RECTUM) 11/02/2017 adenomatous polyp / [facility] EGD, FLEXIBLE, DIAGNOSTIC 03/05/2014 normal/ESOPHAGOGASTRODUODENOSCOPY (EGD), FLEXIBLE, TRANSORAL, DIAGNOSTIC performed by Mason Wilkes MD at [facility] EGD, FLEXIBLE, DIAGNOSTIC 11/02/2017 normal bx / [facility] LUMBAR SPINE FUSION, POST INTERBODY 09/15/2017 Dr [email or web address]. L2-4 fusion. transverse fusion/bone. PATIENT EDU, LUMBAR MICRODISCECTOMY 1991 still has intermittent lower right back pain, does not radiate beyond the hip REMOVE CATARACT, INSERT LENS PROSTH Left 02/18/2022 LEFT EXTRACAPSULAR CATARACT REMOVAL WITH INTRAOCULAR LENS performed by Yandel Bowens MD at OR [facility] REMOVE CATARACT, INSERT LENS PROSTH Right 03/04/2022 RIGHT EXTRACAPSULAR CATARACT REMOVAL WITH INTRAOCULAR LENS performed by Yandel Bowens MD at OR [facility] STENT, COATED/COVERED, WITH DELIVERY SYSTEM Last one was 11/23/10 total of 5 stents, 2 MARIBEL (06/13) and 1 BMS (11/23/10) TOTAL HIP REPLACEMENT & PROSTHESIS December 22 2009 right hip due to arthritis. In [place]. Family History Problem Relation Age of Onset [...] (Maternal) Eye Problems No significant family history Social History Tobacco Use Smoking status: Never Smokeless tobacco: Never Vaping Use Vaping Use: Never used Substance Use Topics Alcohol use: No Comment: drank alcohol once in 1957 Drug use: No Review of patient's allergies indicates: Allergen Reactions Morphine Anaphylaxis Shellfish Allergy Edema airway Bee Venom Iodine Other (Please comment) Pt says not to use due to shellfish allergy Penicillins Rash Current Outpatient Medications Medication Sig Dispense Refill [...] TABLET BY MOUTH DAILY 90 Tablet 3 Sodium Chloride 1 GM Oral Tablet Take 1 Tablet by mouth in the morning. 30 Tablet 3 metFORMIN HCl 500 MG Oral [...] No current facility-administered medications for this visit. ROS: Review of Systems: See HPI for pertinent positives. All other review of systems is negative. PHYSICAL EXAMINATION BP 138/82 | Pulse 58 | Wt 90.3 kg (199 lb) | SpO2 98% | BMI 26.25 kg/m | BSA 2.16 m Body mass index is 26.25 kg/m. General: no acute distress and stated age Head: normocephalic, no masses, lesions, tenderness or abnormalities Eyes: conjunctiva are pink and non-injected, sclera clear Neck: supple, no adenopathy, no bruits, normal jugular venous pulse, no hepatojugular reflux Chest: normal shape and normal respiratory effort Lungs: clear to auscultation and percussion Cardiac Exam: - regular rate & rhythm, no murmurs gallops or rubs - normal S1, normal S2 Pulses: 2(+) throughout Abdomen: abdomen soft, non-tender, no abnormal masses and no hepatosplenomegaly Musculoskeletal: no gait disturbance, no joint inflammation, no deforming arthritis Extremities: no edema and no cyanosis Neuro: grossly normal exam Laboratory Data Review: Latest Reference Range & Units 09/27/23 17:03 Sodium 135 - 146 mmol/L 128 (L) Potassium 3.5 - 5.1 mmol/L 5.0 Chloride 98 - 107 mmol/L 92 (L) CO2 22 - 32 mmol/L 23 BUN 6 - 20 mg/dL 17 Creatinine 0.6 - 1.2 mg/dL 0.9 Estimated Glomerular Filtration Rate >=60 mL/min 84 Anion Gap 7 - 15 mmol/L 13 Glucose 70 - 120 mg/dL 98 Calcium 8.4 - 10.2 mg/dL 9.7 Folic Acid >4.5 ng/mL 4.1 (L) TSH 0.27 - 4.20 uIU/mL 2.80 WBC 4.00 - 10.80 K/uL 5.79 RBC 4.50 - 5.25 M/uL 3.87 HGB 14.0 - 16.8 g/dL 12.0 (L) HCT 40.0 - 48.4 % 35.5 (L) MCV 82.0 - 99.5 fL 91.7 MCH 27.0 - 34.0 pg 31.0 MCHC 32.0 - 36.0 g/dL 33.8 RDW 11.5 - 15.5 % 15.0 PLT 140 - 400 K/uL 161 MPV 6.6 - 11.1 fL 9.1 ANEMIA CBC Rpt ! Absolute Neutrophils 1.80 - 7.70 K/uL 3.05 Absolute Lymphocytes 1.00 - 4.80 K/ul 1.53 Absolute Monocytes 0.00 - 1.10 K/uL 0.70 Absolute Eosinophils 0.00 - 0.70 K/uL 0.46 Absolute Basophils 0.00 - 0.20 K/uL 0.03 IRON SCREEN, INCLUDING TIBC Rpt Iron 45 - 176 ug/dL 98 Iron Binding Capacity 250 - 425 ug/dL 288 Transferrin Saturation Percent 15 - 55 % 34 Ferritin 30 - 400 ng/mL 434 (H) Vitamin B12 232 - 1,245 pg/mL >2,000 (H) Immature Reticuloctye Fraction 2.5 - 20.6 % 11.9 Reticulocyte Hemoglobin 29.7 - 37.4 pg 36.9 Absolute Reticulocyte 31.3 - 100.1 K/uL 52.6 Reticulocyte Percent 0.80 - 1.90 % 1.37 (L): Data is abnormally low !: Data is abnormal (H): Data is abnormally high Rpt: View report in Results Review for more information Impression: 1. Stable coronary artery disease. Chest pain likely musculoskeletal after fall. 2. Status post coronary artery bypass surgery May, 3. Mild to moderate per echo Jul 2022. 4. Dyslipidemia 5. SIADH 6. Hypertension - now borderline hypotension. Monitor. 7. Paroxysmal afib - currently NSR 8. HFpEF - appears euvolemic 9. Abnormal EKG, chronic 10. Back pain, severe - recent fractures Plan: The patient is very uncomfortable from his rib fractures and I offered a referral to pain management but he states that he is okay with some Aspercreme and Tylenol for now. In regard to his low-sodium, I instructed his son to provide a fluid restriction of not more than 2 L per day. He is scheduledto see Nephrology in the next few weeks for an evaluation of his low-sodium which may be multifactorial including medications like his Lasix which he needs to stay on.. He will continue his current medications including the reduced dose of metoprolol and Lasix. He is currently euvolemic and if he does become symptomatic again with low blood pressure we can reduce his Lasix even more. I will review his Zio monitor when it is available. I plan follow-up again in 3 months or earlier if needed. This chart was completed in part utilizing [employer] Speech Voice Recognition Software. Grammatical errors, random word insertions, prounoun errors, and incomplete sentences are an occasional consequence of this system due to software limitations, ambient noise, and hardware issues. Any formal questions or concerns about the content, text, or information contained within the body of this dictation should be directly addressed to the provider for clarification. I spent a total of 30-39 minutes (exact time 38 mins) on the date of service in preparation, delivery, and documentation of the care provided to Srini Ch excluding any time spent in the performance of separately billed services. Dannie Middleton DO Cardiology, [facility] [address] [place] [address] 10/05/2023 documented in this encounter Nursing Notes * Charu Valencia CMA - 10/05/2023 2:30 PM EDT Examination Room: 16 Name: Srini Ch Date of : (1935) Reason for Visit: 1 month Interim Hospitalization(s): none Problems/Concerns: denied Chest Pain/SOB: some light chest pain. Has zio on. Pressed the button. Denied SOB [facility] is a way you can talk to your provider online through e-mail. Would you like to sign up? I can activate it for you? ALREADY ACTIVE Patient was instructed to not get up on the exam table until directed and assisted by their provider; patient is to remain seated in the chair/ wheelchair/ exam table for fall prevention and safety reasons. Patient is aware to have assistance to step down off exam table with personnel. Patient voiced full comprehension of instructions. documented in this encounter Plan of Treatment Upcoming Encounters Date Type Department Care Team (Late st Contact Info) Description 11/30/2023 3:00 PM EDT Office Visit Nephrology, [facility] [address] [place] [id number] Jose Winter MD [address] [place] [address] 12/26/2023 3:00 PM EDT Office Visit Cardiology, [facility] [address] [place] [address] Ewelina Poole PA-C [address] [place] [address] 01/24/2024 1:30 PM EDT Office Visit Urology, [facility] [address] [place] [address] George Tran MD [address] [facility] [address] [place] [address] 03/13/2024 3:00 PM EDT Cardiac Studies Cardiac Studies, [facility] [address] [place] [address] Health Maintenance Due Date Last Done Comments [...] this encounter Medical Devices Implanted Type Area Cloth Spreader Device Identifier Shelf Expiration Date Model / Serial / Lot Sut Steel 6 [id number] - [id number] Implanted:Qty: 4 on 05/30/2014 by Stanislav Hilliard MD at [facility] N/A: Chest JNJ : [employer] 02/07/2019 [id number] / / [id number] Marker Coronary Am-Sd - [id number] Implanted:Qty: 2 on 05/30/2014 by Stanislav Hilliard MD at [facility] N/A: Aorta [employer] 03/10/2017 AM-SD / / [id number] Lens Intraoc 20.5 - [id number] - [id number] Implanted:Qty: 1 on 02/18/2022 by Yandel Bowens MD at OR [facility] Left: Eye [employer] 11/07/2026 [id number] / [id number] / [id number] Lens Intraoc 21.5 - [id number] - [id number] Implanted:Qty: 1 on 03/04/2022 by Yandel Bowens MD at OR [facility] Right: Eye [employer] 10/08/2026 [id number] / [id number] / [id number] documented as of this encounter Visit Diagnoses Diagnosis Nonrheumatic aortic valve stenosis- Primary Aortic valve disorders S/P CABG x 3 Postsurgical aortocoronary bypass status PAF (paroxysmal atrial fibrillation) (HCC) Atrial fibrillation Hyponatremia Hyposmolality and/or hyponatremia SIADH (syndrome of inappropriate ADH production) (HCC) Other disorders of neurohypophysis documented in this encounter Advance Directives Latest Code Status on File Code Status Date Activated Date Inactivated Comments No Code 03/04/2022 8:43 AM 03/04/2022 2:28 PM This order reflects the patients wishes and were consensually agreed upon. Question Answer Comments Discussion of Advance Directives occurred with: Patient Does the patient have a Living Will? No Does the patient have Health Care Power of Donations Attendant? No Code Status History Code Status Date Activated Date Inactivated Comments No Code 02/18/2022 7:51 AM 02/18/2022 2:15 PM This order reflects the patients wishes and were consensually agreed upon. Question Answer Comments Discussion of Advance Directives occurred with: Patient Does the patient have a Living Will? No Does the patient have Health Care Power of Donations Attendant? No Full Code 01/04/2019 6:51 PM 01/06/2019 [...] the patient have Health Care Power of Donations Attendant? No Care Teams Database Engineer Relationship Specialty Start Date End Date Angelo Vazquez MD [address] [place] [address] PCP - General Family Medicine 06/24/14 documented as of this encounter"
--- OUTSIDE RECORDS SUMMARY | 2023-11-15 14:39 | External Medical Summary | Summary of Care ---
Author Name Unknown Organization [facility] Address [address] [place] [address] Phone [phone] Care Team Providers Care Radiation Control Technician Name Role Phone Angelo Vazquez MD Primary Care Provider + Reason for Referral * Precert (Within 10 days (routine)) - Authorized Specialty Diagnoses / Procedures Referred By Contac t Referred To Contact Cardiac Studies Diagnoses Aortic valve stenosis Procedures ECHO, COMPLETE (2D), TRANS-THORACIC Ewelina Poole PA-C [address] [place] [id number] Referral ID Status Reason Start Date Expiration Date V isits Requested Visits Authorized [id number] Authorized Precert 03/11/2024 999 999 Reason for Visit * Reason Onset Date Comments Test Results 09/09/2023 Encounter Details Date Type Department Care Team (Late st Contact Info) Description 09/09/2023 Telephone Cardiology, [facility] [address] [place] [address] Ewelina Poole PA-C [address] [place] [id number] Test Results Allergies Active Allergy Reactions Criticality Noted Date Comments Bee Venom 12/30/2015 Iodine Other (Please comment) 08/18/2011 Pt says not to use due to shellfish allergy Morphine Anaphylaxis High 08/18/2011 Penicillins Rash 08/18/2011 Shellfish Allergy Edema airway High 08/18/2011 documented as of this encounter (statuses as of 09/09/2023) Medications Medication Sig Dispensed Refills Start Date End Date Status TYLENOL ARTHRITIS PAIN 650 MG PO TBCR 2 TABLETS EVERY 8 HOURS NEEDED 60 Tab 5 07/25/2014 Active FLONASE 50 MCG/ACT NA SUSPIndications:Na william erythema use once in each nostril daily as needed 1 Bottle 2 10/09/2014 Active Ca Carbonate-Mag [...] Tablet (Lipitor)Indicatio ns:Paroxysmal atrial fibrillation (HCC),CAD in ione artery,S/P CABG x 3 TAKE ONE TABLET [...] MG Sublingual Tablet Sublingual (Nitrostat)Indicat ions:CAD in ione artery DISSOLVE 1 TABLET UNDER THE TONGUE NEEDED FOR CHEST PAIN, MAY REPEAT EVERY 5 MINUTES FOR 3 TOTAL DOSES 25 Tablet 3 05/30/2023 Active Additional Information Patient not taking.Reported on 08/23/2023 Escitalopram Oxalate 10 MG Oral Tablet (Lexapro)Indicatio [...] for muscle spasticity 30 Tablet 1 08/26/2023 Active traMADol HCl 50 MG Oral Tablet (Ultram) take 1 tablet (50 mg ) by mouth twice a day As Needed for pain; In addition to the tramadol, take acetaminophen either regular strength or extra, 2 pills. 40 Tablet 0 08/26/2023 Active documented as of this encounter (statuses as of 09/09/2023) Active Problems Problem Noted Date Diagnosed Date Renal cyst, acquired, left 01/18/2023 Urge incontinence [...] 2014 PAF (paroxysmal atrial fibrillation) 07/14/2012 senior care current use of anticoagulant therapy 0 07/14/2012 Overview: ICD-10 update of inactive term Dysthymia 11/30/2011 Coronary artery disease invo lving ione coronary artery of ione heart without angina pectoris Overview: 05/30/14 3V CABG [facility]. Prior: 5 stents-hx angina. Drug eluting, & bare metal. Most recent 11/18 1986 LCAD PTCA 12.04 LAD & mid circ drug eluting stents 8.08-distal RCA non drug eluting stent 11/13/10 LAD Ion drug eluting stent 01/14/11 Cardiolite EF55% no ischemia Gastroesophageal reflux disease Overview: Particles are regurgitant, some acid reflux, not much coughing Dyslipidemia documented as of this encounter (statuses as of 09/09/2023) Resolved Problems Problem Noted Date Diagnosed Date [...] as of this encounter (statuses as of 09/09/2023) Immunizations Name Administration Dates Next Due COVID-19 mRNA, LNP-s, No Pre serve, 2-Dose Series (Hokey Pokey) 06/11/2021,10/09/2020,09/19/2020 Covid-19, Mrna, Lnp-s, Pf, B ivalent, 30 Mcg, IM, 12 yrs and above (Hokey Pokey) 05/03/2022 H1N1 2009 Influenza, IM 06/23/2009 Pneumococcal [...] encounter Miscellaneous Notes * Telephone Encounter - Tima Crews LPN - 09/09/2023 4:28 PM EST Sent patient a [employer]ocket[employer] message to make aware. Echo ordered. Scheduling please assist. ----- Message from Ewelina Poole PA-C sent at 09/08/2023 2:34 PM EST ----- Echo results reviewed. Normal LVEF at 50-54% Moderate to severe aortic stenosis. Slightly progressed from 1 year ago. Repeat echo in 6 months. documented in this encounter Plan of Treatment Upcoming Encounters Date Type Department Care Team (Late st Contact Info) Description 11/30/2023 3:00 PM EDT Office Visit Nephrology, [facility] [address] [facility] [place] [address] Jose Winter MD [address] [facility] [place] [address] 01/24/2024 1:30 PM EDT Office Visit Urology, [facility] [address] [facility] [place] [phone] George Tran MD [address] [facility] [address] [place] [id number] Scheduled Orders Name Type Priority Associated Diagnoses Orde r Schedule ECHO, COMPLETE (2D), TRANS-THORACIC Echocardiology Routine Aortic valve stenosis Expected: 03/11/2024 (Approximate), Expires: 09/08/2024 Health Maintenance Due Date Last Done Comments [...] 08/03/2023, 08/0 07/2022, 09/01/2022, Additional history exists TSH 05/30/2024 05/30/2023, 08/12, 07/09/2022, Additional history exists B-12 08/03/2024 08/03/2023, 03/2023, 01/27/2021, Additional history exists DTaP,Tdap,and Td Vaccines (2 [...] this encounter Medical Devices Implanted Type Area Drivability Technician Device Identifier Shelf Expiration Date Model / Serial / Lot Sut Steel 6 [id number] - [id number] Implanted:Qty: 4 on 05/30/2014 by Stanislav Hilliard MD at OR [facility] N/A: Chest JNJ : [employer] 02/07/2019 [id number] / / [id number] Marker Coronary [facility] - [id number] Implanted:Qty: 2 on 05/30/2014 by Stanislav Hilliard MD at OR [facility] N/A: Aorta [employer] 03/10/2017 [facility] / / [id number] Lens Intraoc 20.5 - [id number] - [id number] Implanted:Qty: 1 on 02/18/2022 by Yandel Bowens MD at OR [facility] Left: Eye [employer] 11/07/2026 [id number] / [id number] / [id number] Lens Intraoc 21.5 - [id number] - [id number] Implanted:Qty: 1 on 03/04/2022 by Yandel Bowens MD at OR [facility] Right: Eye [employer] 10/08/2026 [id number] / [id number] / [id number] documented as of this encounter Visit Diagnoses Diagnosis Aortic valve stenosis- Primary Aortic valve disorders documented in this encounter Advance Directives Latest Code Status on File Code Status Date Activated Date Inactivated Comments No Code 03/04/2022 8:43 AM 03/04/2022 2:28 PM This order reflects the patients wishes and were consensually agreed upon. Question Answer Comments Discussion of Advance Directives occurred with: Patient Does the patient have a Living Will? No Does the patient have Health Care Power of Locomotive Supervisor? No Code Status History Code Status Date Activated Date Inactivated Comments No Code 02/18/2022 7:51 AM 02/18/2022 2:15 PM This order reflects the patients wishes and were consensually agreed upon. Question Answer Comments Discussion of Advance Directives occurred with: Patient Does the patient have a Living Will? No Does the patient have Health Care Power of Locomotive Supervisor? No Full Code 01/04/2019 6:51 PM 01/06/2019 [...] the patient have Health Care Power of Locomotive Supervisor? No Care Teams Radiation Control Technician Relationship Specialty Start Date End Date Angelo Vazquez MD [address] [place] [address] PCP - General Family Medicine 06/24/14 documented as of this encounter
--- OUTSIDE RECORDS SUMMARY | 2023-11-15 14:39 | External Medical Summary | Summary of Care ---
Author Name Unknown Organization [facility] Address [address] [place] [address] Phone [phone] Care Team Providers Care Lead Machinist Name Role Phone Angelo Vazquez MD Primary Care Provider + Reason for Visit * Reason Comments Follow Up Encounter Details Date Type Department Care Team (Late st Contact Info) Description 08/23/2023 2:00 PM EST Office Visit Cardiology, [facility] [address] [place] [address] Ewelina Poole PA-C [address] [place] [id number] Coronary artery disease involving paimiut coronary artery of paimiut heart without angina pectoris*; S/P CABG x 3; Chest pain, unspecified type; PAF (paroxysmal atrial fibrillation) ([facility]); Dyslipidemia, goal LDL below 70; HTN, goal below 140/90; Nonrheumatic aortic valve stenosis Allergies Active Allergy Reactions Criticality Noted Date Comments Bee Venom 12/30/2015 Iodine Other (Please comment) 08/18/2011 Pt says not to use due to shellfish allergy Morphine Anaphylaxis High 08/18/2011 Penicillins Rash 08/18/2011 Shellfish Allergy Edema airway High 08/18/2011 documented as of this encounter (statuses as of 09/07/2023) Medications Medication Sig Dispensed Refills Start Date [...] Tablet (Lipitor)Indicatio ns:Paroxysmal atrial fibrillation (HCC),CAD in paimiut artery,S/P CABG x 3 TAKE ONE TABLET [...] than 8.0% ([facility]) TAKE ONE TABLET BY MOUTH DAILY 90 Tablet 3 04/21/2023 4 Active Metoprolol Succinate ER 25 MG Oral Tablet Extended Release 24 Hour (toPROL XL) TAKE ONE TABLET BY MOUTH DAILY 90 Tablet 1 04/28/2023 4 Active Nitroglycerin 0.4 MG Sublingual Tablet Sublingual (Nitrostat)Indicat ions:CAD in paimiut artery DISSOLVE 1 TABLET UNDER THE TONGUE NEEDED FOR CHEST PAIN, MAY REPEAT EVERY 5 MINUTES FOR 3 TOTAL DOSES 25 Tablet 3 05/30/2023 Active Additional Information Patient not taking.Reported on 08/23/2023 Escitalopram Oxalate 10 MG Oral Tablet (Lexapro)Indicatio ns:Mild episode of recurrent major depressive disorder (HCC) Take 1 Tablet by mouth in the morning. 30 Tablet 3 06/07/2023 4 Active Furosemide 40 MG Oral Tablet [...] CHEW THE TABLET. 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 0 07/14/2012 Overview: ICD-10 update of inactive term Dysthymia 11/30/2011 Coronary artery disease invo lving paimiut coronary artery of paimiut heart without angina pectoris Overview: 05/30/14 3V [...] as of this encounter (statuses as of 09/07/2023) Resolved Problems Problem Noted Date Diagnosed Date [...] as of this encounter (statuses as of 09/07/2023) Immunizations Name Administration Dates Next Due COVID-19 [...] Sign Reading Time Taken Comments Blood Pressure 96/56 08/23/2023 2:00 PM EST Pulse 76 08/23/2023 2:00 PM EST Temperature - - Respiratory Rate 18 08/23/2023 2:00 PM EST Oxygen Saturation - - Inhaled Oxygen Concentration - - Weight 88.5 kg (195 lb) 08/23/2023 2:00 PM EST Height - - Body Mass Index 25.73 06/07/2023 10:00 AM EST documented in this [...] as of this encounter Progress Notes * Ewelina Poole PA-C - 09/07/2023 9:56 AM EST Cardiology F/U: HPI: Patient is an 88-year-old male here today for cardiology appt requested by the patient's . Originally patient's was scheduled in this time slot. She purposely cancelled her appt and placed him in this appt due to several concerns. Last clinic evaluation approx 3 months ago with the undersigned. Primary screen printing paster is Dr. Middleton. History includes: 1. CAD S/P remote CABG in 2013 2. Repeat cath in 2019 with patent grafts 3. Mild to moderate per echo 07/2022 4. PAF on chronic anticoagulation 5. Hypertension 6. Dyslipidemia 7. Dementia/memory loss 8. History of hyponatremia. Patient fell back several months ago. Fractured ribs and T12. Has severe back pain currently. She is wanting pain medication for him. He denies acute cardiac complaints. He is writhing in pain the exam chair. Can't sit still. History is somewhat unreliable due to dementia. He reports a soreness in his chest from falling. Sore to touch, move. No SOB. No exertional chest pain. No dizziness or lightheadedness. Review of Systems: Limited due to dementia. Patient Active Problem List Diagnosis Code Coronary artery disease involving paimiut coronary artery of paimiut heart without angina pectoris I25.10 Gastroesophageal reflux disease K21.9 Dyslipidemia E78.5 Dysthymia F34.1 PAF (paroxysmal atrial fibrillation) ([facility]) I48.0 prison current use of anticoagulant therapy Z79.01 Diabetic retinopathy ([facility]) E11.319 Aortocoronary bypass status Z95.1 Type 2 diabetes mellitus with hemoglobin A1c goal of less than 8.0% ([facility]) E11.9 S/P CABG x 3 Z95.1 Dry eyes H04.123 Hyponatremia E87.1 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 S/P lumbar spinal fusion Z98.1 Left renal mass N28.89 Dyslipidemia, goal LDL below 70 E78.5 BPH with obstruction/lower urinary tract symptoms N40.1, 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) ([facility]) E22.2 Acquired hypothyroidism E03.9 Mild episode of recurrent major depressive disorder ([facility]) F33.0 Age-related cataract of both eyes H25.9 HTN, goal below 140/90 I10 Nonrheumatic aortic valve stenosis I35.0 Dyspnea on exertion R06.09 Spinal stenosis of lumbar region with neurogenic claudication M48.062 Medical home patient encounter Z00.8 Renal cyst, acquired, left N28.1 Urge incontinence N39.41 Past Surgical History: Procedure Laterality Date ARTHROPLASTY KNEE TOTAL 2008 (?) Left knee injury with surgery in 1968, arthritis before surgery [place] ANGIOPLASTY;SINGLE 52 years old BYPASS GRAFT ANGIOGRAPHY W/LEFT HEART CATH Right 01/05/2019 BYPASS GRAFT ANGIOGRAPHY W/LEFT HEART CATH performed by Mouna Castro MD at [facility] CABG, ARTERIAL, SINGLE N/A 05/30/2014 CORONARY ARTERY BYPASS GRAFT USING ARTERY 1 GRAFT performed by Stanislav Hilliard MD at [place] [facility] CABG, ARTERIAL, THREE 05/30/14 (3v, not 1v) CARPAL TUNNEL SURGERY Bilateral 03/2017 Dr Hanna COLONOSCOPY, DIAGNOSTIC (RECTUM) 03/05/2014 adenomatous polyp, diverticulosis, repeat 5 yrs/COLONOSCOPY FLEXIBLE PROXIMAL DIAGNOSTIC performed by Mason Wilkes MD at ENDOSCOPY [facility] COLONOSCOPY, DIAGNOSTIC (RECTUM) 11/02/2017 adenomatous polyp / [facility] EGD, FLEXIBLE, DIAGNOSTIC 03/05/2014 normal/ESOPHAGOGASTRODUODENOSCOPY (EGD), FLEXIBLE, TRANSORAL, DIAGNOSTIC performed by Mason Wilkes MD at ENDOSCOPY [facility] EGD, FLEXIBLE, DIAGNOSTIC 11/02/2017 normal bx / [facility] LUMBAR SPINE FUSION, POST INTERBODY 09/15/2017 Dr [email or web address]. L2-4 fusion. transverse fusion/bone. PATIENT EDU, LUMBAR MICRODISCECTOMY 1991 still has intermittent lower right back pain, does not radiate beyond the hip REMOVE CATARACT, INSERT LENS PROSTH Left 02/18/2022 LEFT EXTRACAPSULAR CATARACT REMOVAL WITH INTRAOCULAR LENS performed by Yandel Bowens MD at [facility] REMOVE CATARACT, INSERT LENS PROSTH Right 03/04/2022 RIGHT EXTRACAPSULAR CATARACT REMOVAL WITH INTRAOCULAR LENS performed by Yandel Bowens MD at [facility] STENT, COATED/COVERED, WITH DELIVERY SYSTEM Last one was 11/23/10 total of 5 stents, 2 MARIBEL (06/13) and 1 BMS (11/23/10) TOTAL HIP REPLACEMENT & PROSTHESIS December 22 2009 right hip due to arthritis. In [place]. Family History Problem Relation Age of Onset [...] EVERY 8 HOURS NEEDED 60 Tab 5 Aspirin 81 MG Oral Tablet Delayed Release [...] TABLET BY MOUTH DAILY 90 Tablet 1 Escitalopram Oxalate 10 MG Oral Tablet (Lexapro) Take 1 Tablet by mouth in the morning. 30 Tablet 3 Furosemide 40 MG Oral Tablet [...] OR CHEW THE TABLET. 90 Tablet 3 FLONASE 50 MCG/ACT NA SUSP use once in each nostril daily as needed (Patient not taking: Reported on 08/23/2023) 1 Bottle 2 Ca Carbonate-Mag Hydroxide 550-110 MG Oral Tablet Chewable Take by mouth. (Patient not taking: Reported on 08/23/2023) Sodium Chloride 1 GM Oral Tablet Take 1 Tablet by mouth in the morning. (Patient not taking: Reported on 08/23/2023) 30 Tablet 3 Nitroglycerin 0.4 MG Sublingual Tablet Sublingual (Nitrostat) DISSOLVE 1 TABLET UNDER THE TONGUE ASNEEDED FOR CHEST PAIN, MAY REPEAT EVERY 5 MINUTES FOR 3 TOTAL DOSES (Patient not taking: Reported on 08/23/2023) 25 Tablet 3 tiZANidine HCl 4 MG Oral Tablet (Zanaflex) take 1 tablet (4 mg) by mouth twice a day As Needed for muscle spasticity 30 Tablet 1 traMADol HCl 50 MG Oral Tablet (Ultram) take 1 tablet (50 mg ) by mouth twice a day As Needed for pain; In addition to the tramadol, take acetaminophen either regular strength or extra, 2 pills. 40 Tablet 0 Abrysvo 120 MCG/0.5ML Intramuscular Solution Reconstituted (RSV Pre-Fusion F A&B Vac Rcmb) Inject into a large muscle. 1 Each 0 No current facility-administered medications for this visit. PHYSICAL EXAMINATION BP 96/56 | Pulse 76 | Resp 18 | Wt 88.5 kg (195 lb) | BMI 25.73 kg/m | BSA 2.13 m Body mass index is 25.73 kg/m. BP Readings from Last 4 Encounters: 08/23/23 96/56 07/26/23 128/66 07/07/23 112/86 06/22/23 104/58 Wt Readings from Last 3 Encounters: 08/23/23 88.5 kg (195 lb) 07/26/23 93.8 kg (206 lb 12.8 oz) 07/07/23 96.3 kg (212 lb 6.4 oz) General: no acute distress and stated age Head: normocephalic, no masses, lesions, tenderness or abnormalities Eyes: conjunctiva are pink and non-injected, sclera clear Neck: supple, no adenopathy, no bruits, normal jugular venous pulse, no hepatojugular reflux Chest: normal shape and normal respiratory effort Lungs: clear to auscultation and percussion Cardiac Exam: - regular rate & rhythm, II/ systolic murmur LSB. Pulses: 2(+) throughout Abdomen: abdomen soft, non-tender, no abnormal masses and no hepatosplenomegaly Musculoskeletal: no gait disturbance, no joint inflammation, no deforming arthritis Extremities: no edema and no cyanosis Neuro: grossly normal exam Cardiac studies/labs: EKG performed today and reviewed personally: Sinus rhythm with 1st degree AV block Rightward axis T wave abnormality, consider inferolateral ischemia Prolonged QT interval or tu fusion, consider myocardial disease, electrolyte imbalance, or drug effects Abnormal ECG When compared with ECG of 07-JUN-2023 10:46, T wave inversion now evident in Inferior leads EKG reviewed from May 2023: Sinus bradycardia with marked sinus arrhythmia with 1st degree AV block T wave abnormality, consider anterolateral ischemia Abnormal ECG When compared with ECG of 30-MAY-2023 13:41, Borderline criteria for Anterior infarct are no longer Present T wave inversion now evident in Anterior leads EKG reviewed from November 2022 at [facility]: Normal sinus rhythm with 1st degree A-V block Rightward axis Anterior infarct (cited on or before 30-NOV-2022) Prolonged QT Abnormal ECG When compared with ECG of 29-NOV-2022 14:07, No significant change was found Echocardiogram report reviewed dated July 2022: Interpretation Summary The examination is adequate to evaluate the referral indication. The LV wall thickness is mildly increased [...] now present as compared to mild aortic stenosis EKG reviewed from June 01, 2022: Sinus bradycardia with 1st degree AV block Cannot rule out Inferior infarct (cited on or before 01-JUN-2022) Anterior infarct (cited on or before 01-JUN-2022) T wave abnormality, consider lateral ischemia Abnormal ECG When compared with ECG of 01-JUN-2022 14:45, Sinus rhythm has replaced Junctional rhythm Serial changes of evolving Anterior infarct Present ZIO monitor report reviewed dated June 01, 2022: CONCLUSIONS: Final Interpretation : Indication: Syncope Duration: [...] rare (<1.0%). Isolated VEs were frequent (13.4%, [id number]), VE Couplets were rare (<1.0%, 2542), and VE Triplets were rare (<1.0%, 104). Ventricular Bigeminy and Trigeminy were present. Reported runs of supraventricular tachycardia represent paroxysmal atrial fibrillation. Frequent ventricular ectopy recorded. Rare symptoms correlate with sinus rhythm and ventricular ectopy. Echo report reviewed dated May 2021: Interpretation Summary The examination is adequate to evaluate the referral indication. The LV wall thickness is moderately increased (concentric). The left ventricular wall motion is normal. The qualitative LV ejection fraction is 55-59% (normal). The left atrium is severely enlarged. The left ventricular diastolic function is moderately abnormal (grade II). The aortic valve has three leaflets. The aortic valve is mildly calcified. The aortic valve area is measured to be 1.5 centimeters2 by 2D planimetry method. Mild aortic valve stenosis is present. There is no significant aortic regurgitation. Mild tricuspid regurgitation is present. There is no evidence of pulmonary hypertension. The aortic root and proximal ascending aorta are mildly enlarged. Compared to the report of the prior study dated 01/05/2019, mild aortic valve stenosis is now present, mild enlargement of the aortic root and proximal ascending aorta is now present Latest Reference Range & Units 10/06/22 14:49 Triglycerides <=174 mg/dL 101 Cholesterol <200 mg/dL 90 Non-HDL Cholesterol <=159 mg/dL 49 HDL Cholesterol >39 mg/dL 41 LDL Cholesterol <=129 mg/dL 29 Latest Reference Range & Units 05/30/23 14:28 Sodium 135 - 146 mmol/L 130 (L) Potassium 3.5 - 5.1 mmol/L 4.7 Chloride 98 - 107 mmol/L 92 (L) CO2 22 - 32 mmol/L 28 BUN 6 - 20 mg/dL 23 (H) Creatinine 0.6 - 1.2 mg/dL 1.0 Estimated Glomerular Filtration Rate >=60 mL/min 78 Anion Gap 7 - 15 mmol/L 10 Glucose 70 - 120 mg/dL 95 Calcium 8.4 - 10.2 mg/dL 9.4 (L): Data is abnormally low (H): Data is abnormally high Impression: 88 year old male 1. Stable coronary artery disease. Chest pain likely musculoskeletal after fall. 2. Status post coronary artery bypass surgery May, 3. Mild to moderate per echo Jul 2022. 4. Dyslipidemia 5. SIADH 6. Hypertension - now borderline hypotension. Monitor. 7. Paroxysmal afib - currently NSR 8. HFpEF - appears euvolemic 9. Abnormal EKG, chronic 10. Back pain, severe - recent fractures PLAN: Recommend appt with PCP or possible pain management for severe back pain. Repeat echo at 1 year interval, winter/spring 2023. Continue anticoagulation with Eliquis and metoprolol. The patient is to continue all current medications as listed above. No changes were made at today'svisit. CHF tools discussed including daily weights, salt/sodium/fluid restriction, and use of diuretic protocol. Patient is being evaluated in the cardiology office for ongoing care/risk management for CAD; HTN; PAF. I spent a total of 30 minutes on the date of service in preparation, delivery, and documentation ofthe care provided to Srini Ch excluding any time spent in the performance of separately billed services. The patient agrees to the above plan and will call with additional questions or concerns. ER with all emergencies advised. Ewelina Poole PA-C Department of Cardiology This chart was completed in part utilizing [employer] Speech Voice Recognition Software. Grammatical errors, random word insertions, prounoun errors, and incomplete sentences are an occasional consequence of this system due to software limitations, ambient noise, and hardware issues. Any formal questions or concerns about the content, text, or information contained within the body of this dictation should be directly addressed to the provider for clarification. documented in this encounter Nursing Notes * Kvng Obregon RN - 08/23/2023 1:58 PM EST Examination Room: room 6 Name: Srini Ch Date of : (1935). Reason for Visit: for follow up Interim Hospitalization(s)denies Problems/Concerns: severe back pain Chest Pain/SOB: at times chest wall hurts stemmed from the fall 2 months ago [facility] Discussed: yes My [employer] is a way you can talk to [...] 11/30/2023 3:00 PM EDT Office Visit Nephrology, [facility] [address] [place] [address] Jose Winter MD [address] [place] [address] 01/24/2024 1:30 PM EDT Office Visit Urology, [facility] [address] [facility] [place] [address] George Tran MD [address] [facility] [address] [place] [id number] Health Maintenance Due Date Last Done Comments [...] 09/01/2022, Additional history exists TSH 05/30/2024 05/30/2023, 02/2 08/2022, 07/09/2022, Additional history exists B-12 08/03/2024 08/03/2023, 01/0 03/2023, 01/27/2021, Additional history exists DTaP,Tdap,and Td [...] this encounter Medical Devices Implanted Type Area Customer Assistant Device Identifier Shelf Expiration Date Model / Serial / Lot Sut Steel 6 [id number] - [id number] Implanted:Qty: 4 on 05/30/2014 by Stanislav Hilliard MD [place] [facility] [place]/A: Chest JNJ : [employer] 02/07/2019 [id number] / / [id number] Marker Coronary [facility] - [id number] Implanted:Qty: 2 on 05/30/2014 by Stanislav Hilliard MD [place] [facility] N/A: Aorta [employer] 03/10/2017 AM-SD / / [id number] Lens Intraoc 20.5 - [id number] - [id number] Implanted:Qty: 1 on 02/18/2022 by Yandel Bowens MD at OR [facility] Left: Eye [employer] 11/07/2026 [id number] / [id number] / [id number] Lens Intraoc 21.5 - [id number] - [id number] Implanted:Qty: 1 on 03/04/2022 by Yandel Bowens MD at OR [facility] Right: Eye [employer] 10/08/2026 [id number] / [id number] / [id number] documented as of this encounter Results * EKG (08/23/2023 2:26 PM EST) 08/23/2023 2:26 PM EST Narrative Procedure Note Dannie Middleton, - 08/23/2023 2:26 PM EST REASON FOR STUDY: atypical chest pain CONCLUSIONS: Sinus rhythm with 1st degree AV block Rightward axis T wave abnormality, consider inferolateral ischemia Prolonged QT interval or tu fusion, consider myocardial disease,electrolyte imbalance, or drug effects Abnormal ECG When compared with ECG of 07-JUN-2023 10:46, T wave inversion now evident in Inferior leads Ventricular Rate: 66 Atrial Rate: 66 CO Interval: 274 QRS Duration: 86 QT/QTc: 440/461 ms P-R-T [place]: 36 : 90 : 241 degrees Ewelina Mami Virgilio PA-C EKG [facility] documented in this encounter Visit Diagnoses Diagnosis Coronary artery disease involving paimiut coronary artery of paimiut heart without angina pectoris- Primary S/P CABG x 3 Postsurgical aortocoronary bypass status Chest pain, unspecified type PAF (paroxysmal atrial fibrillation) (HCC) Atrial fibrillation Dyslipidemia, goal LDL below 70 Other and unspecified hyperlipidemia HTN, goal below 140/90 Unspecified essential hypertension Nonrheumatic aortic valve stenosis Aortic valve disorders S/P CABG x 3 Postsurgical aortocoronary bypass status Chest pain, unspecified type documented in this encounter Advance Directives Latest Code Status on File Code Status Date Activated Date Inactivated Comments No Code 03/04/2022 8:43 AM 03/04/2022 2:28 PM This order reflects the patients wishes and were consensually agreed upon. Question Answer Comments Discussion of Advance Directives occurred with: Patient Does the patient have a Living Will? No Does the patient have Health Care Power of Business Objects? No Code Status History Code Status Date Activated Date Inactivated Comments No Code 02/18/2022 7:51 AM 02/18/2022 2:15 PM This order reflects the patients wishes and were consensually agreed upon. Question Answer Comments Discussion of Advance Directives occurred with: Patient Does the patient have a Living Will? No Does the patient have Health Care Power of Business Objects? No Full Code 01/04/2019 6:51 PM 01/06/2019 [...] the patient have Health Care Power of Business Objects? No Care Teams Lead Machinist Relationship Specialty Start Date End Date Angelo Vazquez MD [address] [place] [id number] PCP - General Family Medicine 06/24/14 documented as of this encounter"
--- OUTSIDE RECORDS SUMMARY | 2023-11-15 14:39 | External Medical Summary ---
Author Name Unknown Address Unknown Organization [id number]:[facility]ATORY [facility] - [address] [place] [address] Laboratory Report Ordering Provider Test Date Status ANALI CHASE 09/27/2023 17:03:56 Final Observation Date Value Abnormality Reference (Units ) Status TSH 09/27/2023 17:03:56 2.80 0.27-4.20 (uIU/mL) Final Performing Location [facility] - [address] [place] [address]
--- OUTSIDE RECORDS SUMMARY | 2023-11-15 14:39 | External Medical Summary ---
Author Name Unknown Address Unknown Organization [id number][facility] [place] [address] [facility] [place] [address] Laboratory Report Ordering Provider Test Date Status ANALI CHASE 09/27/2023 17:03:56 Final Observation Date Value Abnormality Reference (Units ) Status SYNC LEUKOCYTES IN BLOOD BY AUTOMATED COUNT 09/27/2023 17:03:56 5.79 4.00-10.80 (K/uL) Final Segs 09/27/2023 17:03:56 52.8 40.0-75.0 (%) Final Lymphs % 09/27/2023 17:03:56 26.4 18.0-42.0 (%) Final Monos 09/27/2023 17:03:56 12.1 Above high normal 1.0-11.0 (%) Final Eosinophils 09/27/2023 17:03:56 7.9 Above high normal 0.0-6.0 (%) Final Basos 09/27/2023 17:03:56 0.5 0.0-2.0 (%) Final Immature Granulocyte, Percent 09/27/2023 17:03:56 0.3 0.0-2.0 (%) Final Absolute Segs 09/27/2023 17:03:56 3.05 1.80-7.70 (K/uL) Final Lymphs, absolute 09/27/2023 17:03:56 1.53 1.00-4.80 (K/ul) Final Monos, Abs 09/27/2023 17:03:56 0.70 0.00-1.10 (K/uL) Final Eos, Abs 09/27/2023 17:03:56 0.46 0.00-0.70 (K/uL) Final Basos, Abs 09/27/2023 17:03:56 0.03 0.00-0.20 (K/uL) Final Immature Granulocytes, Number 09/27/2023 17:03:56 0.02 0.00-0.20 (K/uL) Final Performing Location [facility] [place] [facility] [address] [facility] [id number]
--- OUTSIDE RECORDS SUMMARY | 2023-11-15 14:39 | External Medical Summary ---
Author Name Unknown Address Unknown Organization [id number]:LABORATORY [facility] [place] - [facility] [address] [place] [address] Laboratory Report Ordering Provider Test Date Status ANALI CHASE 09/27/2023 17:03:56 Final Observation Date Value Abnormality Reference (Units ) Status Retic, % (auto) 09/27/2023 17:03:56 1.37 0.80-1.90 (%) Final Reticulocytes, Absolute 09/27/2023 17:03:56 52.6 31.3-100.1 (K/uL) Final Reticulocyte fraction, immature 09/27/2023 17:03:56 11.9 2.5-20.6 (%) Final Reticulocyte HGB 09/27/2023 17:03:56 36.9 29.7-37.4 (pg) Final Performing Location LABORATORY [facility] [place] - [address] [place] [address]
--- OUTSIDE RECORDS SUMMARY | 2023-11-15 14:39 | External Medical Summary ---
Author Name Unknown Address Unknown Organization [id number]:LABORATORY [facility] [place] - [address] [facility] [place] [address] Laboratory Report Ordering Provider Test Date Status ANALI CHASE 09/27/2023 17:03:56 Final Observation Date Value Abnormality Reference (Units ) Status WBC, Total 09/27/2023 17:03:56 5.79 4.00-10.8 0 (K/uL) Final RBC 09/27/2023 17:03:56 3.87 4.50-5.25 (M/uL) Final Hemoglobin 09/27/2023 17:03:56 12.0 Below low normal 14 .0-16.8 (g/dL) Final Anemia reflex testing trigge rs on a HGB < 12.0 for Females and HGB < 13.0 for Males in accordance with the WHO Anemia Guidelines
Anemia reflex testing triggers on a HGB < 12.0 for Females and HGB < 13.0 for Males in accordance with the WHO Anemia Guidelines HCT 09/27/2023 17:03:56 35.5 Below low normal 40. 0-48.4 (%) Final MCV 09/27/2023 17:03:56 91.7 82.0-99.5 (fL) Final MCH 09/27/2023 17:03:56 31.0 27.0-34.0 (pg) Final MCHC 09/27/2023 17:03:56 33.8 32.0-36.0 (g/dL) Final RDW 09/27/2023 17:03:56 15.0 11.5-15.5 (%) Final Platelets 09/27/2023 17:03:56 161 140-400 (K /uL) Final MPV 09/27/2023 17:03:56 9.1 6.6-11.1 ( fL) Final Nucleated erythrocytes/100 leukocytes [Ratio] in Blood by Automated count 09/27/2023 17:03:56 0 <=0 (/100 WBCs) Final Performing Location LABORATORY [facility] [place] - [facility] [address] [place] [address]
--- OUTSIDE RECORDS SUMMARY | 2023-11-15 14:39 | External Medical Summary | Summary of Care ---
Author Name Unknown Organization [facility] Address [address] [place] [address] Phone [phone] Care Team Providers Care Field Support Specialist Name Role Phone Angelo Vazquez MD Primary Care Provider + Reason for Visit * Reason Comments Outpatient Testing Encounter Details Date Type Department Care Team (Late st Contact Info) Description 09/27/2023 7:50 AM EDT Laboratory Laboratory, [facility] [address] [place] [address] [facility] [address] [place] [address] Arrived Allergies Active Allergy Reactions Criticality Noted Date Comments Bee Venom 12/30/2015 Iodine Other (Please comment) 08/18/2011 Pt says not to use due to shellfish allergy Morphine Anaphylaxis High 08/18/2011 Penicillins Rash 08/18/2011 Shellfish Allergy Edema airway High 08/18/2011 documented as of this encounter (statuses as of 09/27/2023) Medications Medication Sig Dispensed Refills Start Date [...] Tablet (Lipitor)Indication s:Paroxysmal atrial fibrillation (HCC),CAD in [place] artery,S/P CABG x 3 TAKE ONE TABLET BY MOUTH DAILY 90 Tablet 3 01/20/2023 01/20/2024 Active Sodium Chloride 1 GM Oral Tablet Take 1 Tablet by mouth in the morning. 30 Tablet 3 03/31/2023 Active Additional Information Patient not taking.Reported on 08/23/2023 metFORMIN HCl 500 MG Oral Tablet (Glucophage)Indicat ions:Type 2 diabetes mellitus with hemoglobin A1c goal of less than 8.0% ([facility]) TAKE ONE TABLET BY MOUTH DAILY 90 Tablet 3 04/21/2023 04/20/2024 Active Metoprolol Succinate ER 25 MG Oral Tablet Extended Release 24 Hour (toPROL XL) TAKE ONE TABLET BY MOUTH DAILY 90 Tablet 1 04/28/2023 04/27/2024 Active Nitroglycerin 0.4 MG Sublingual Tablet Sublingual (Nitrostat)Indicati ons:CAD in [place] artery DISSOLVE 1 TABLET UNDER THE TONGUE [...] as of this encounter (statuses as of 09/27/2023) Active Problems Problem Noted Date Diagnosed Date [...] Mild 2014 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 Prior: [...] as of this encounter (statuses as of 09/27/2023) Resolved Problems Problem Noted Date Diagnosed Date [...] as of this encounter (statuses as of 09/27/2023) Immunizations Name Administration Dates Next Due COVID-19 mRNA, LNP-s, No Pre serve, 2-Dose Series ([employer]) 06/11/2021,10/09/2020,09/19/2020 Covid-19, Mrna, Lnp-s, Pf, B ivalent, 30 Mcg, IM, 12 yrs and above ([employer] [facility]) 05/03/2022 H1N1 2009 Influenza, IM 06/23/2009 Pneumococcal [...] 11/30/2023 3:00 PM EDT Office Visit Nephrology, [facility] [place] [address] [place] [address] Jose Winter MD [address] [place] [address] 01/24/2024 1:30 PM EDT Office Visit Urology, [facility] [address] [facility] [place] [address] George Tran MD [address] [facility] [address] [place] [address] 03/13/2024 3:00 PM EDT Cardiac Studies Cardiac Studies, [facility] [address] [place] [address] Health Maintenance Due Date Last Done Comments [...] this encounter Medical Devices Implanted Type Area Sponge Clipper Device Identifier Shelf Expiration Date Model / Serial / Lot Sut Steel 6 M654g - [id number] Implanted:Qty: 4 on 05/30/2014 by Stanislav Hilliard [place] [facility] [place]A: Chest JNJ : [employer] 02/07/2019 M654G / / [id number] Marker Coronary [facility] - [id number] Implanted:Qty: 2 on 05/30/2014 by Stanislav Hilliard [place] [facility] [place]/A: Aorta [employer] 03/10/2017 [facility] / / [id number] Lens Intraoc 20.5 - [id number] - [id number] Implanted:Qty: 1 on 02/18/2022 by Yandel Bowens MD at OR [facility] Left: Eye [employer] 11/07/2026 [id number] / [id number] / [id number] Lens Intraoc 21.5 - [id number] - [id number] Implanted:Qty: 1 on 03/04/2022 by Yandel Bowens MD at OR [facility] Right: Eye [employer] 10/08/2026 [id number] / [id number] / [id number] documented as of this encounter Advance Directives [...] the patient have Health Care Power of Technology Intern? No Code Status History Code Status Date Activated Date Inactivated Comments No Code 02/18/2022 7:51 AM 02/18/2022 2:15 PM This order reflects the patients wishes and were consensually agreed upon. Question Answer Comments Discussion of Advance Directives occurred with: Patient Does the patient have a Living Will? No Does the patient have Health Care Power of Technology Intern? No Full Code 01/04/2019 6:51 PM 01/06/2019 [...] the patient have Health Care Power of Technology Intern? No Care Teams Field Support Specialist Relationship Specialty Start Date End Date Angelo Vazquez MD [address] [place] [address] PCP - General Family Medicine 06/24/14 documented as of this encounter
--- OUTSIDE RECORDS SUMMARY | 2023-11-15 14:39 | External Medical Summary ---
Author Name Unknown Address Unknown Organization K01:LAB[facility]ATORY [facility] - [address] [place] [address] Laboratory Report Ordering Provider Test Date Status ANALI CHASE 09/27/2023 17:03:56 Final Observation Date Value Abnormality Reference (Units ) Status Ferritin 09/27/2023 17:03:56 434 Above high normal 30 -400 (ng/mL) Final Performing Location LABORATORY [facility] - [address] [place] [address]
--- OUTSIDE RECORDS SUMMARY | 2023-11-15 14:39 | External Medical Summary ---
Author Name Unknown Address Unknown Organization K01:LABORATORY [facility] [place] - [address] [place] [address] Laboratory Report Ordering Provider Test Date Status ANALI CHASE 09/27/2023 17:03:56 Final Observation Date Value Abnormality Reference (Units ) Status Folic Acid 09/27/2023 17:03:56 4.1 Below low normal >4 .5 (ng/mL) Final Performing Location LABORATORY [facility] - [address] [place] [address]
--- OUTSIDE RECORDS SUMMARY | 2023-11-15 14:39 | External Medical Summary ---
Author Name Unknown Address Unknown Organization K01:LABORATORY [facility] - [address] [place] [address] Laboratory Report Ordering Provider Test Date Status AANLI CHASE 09/27/2023 17:03:56 Final Observation Date Value Abnormality Reference (Units ) Status Iron 09/27/2023 17:03:56 98 45-176 (ug /dL) Final Iron-binding capacity 09/27/2023 17:03:56 288 250-425 (ug/dL) Final Transferrin Sat % 09/27/2023 17:03:56 34 15 -55 (%) Final Performing Location LABORATORY [facility] - [address] [place] [address]
--- OUTSIDE RECORDS SUMMARY | 2023-11-15 14:39 | External Medical Summary ---
Author Name Unknown Address Unknown Organization K01:LABORATORY [facility] [place] - [address] [place] [address] Laboratory Report Ordering Provider Test Date Status ANALI CHASE 09/27/2023 17:03:56 Final Observation Date Value Abnormality Reference (Units ) Status BUN 09/27/2023 17:03:56 17 6-20 (mg/dL) Final Creatinine 09/27/2023 17:03:56 0.9 0.6-1.2 (mg/dL) Final Glomerular filtration rate/1.73 sq M.predicted [Volume Rate/Area] in Serum, Plasma or Blood by Creatinine-based formula (CKD-EPI) 09/27/2023 17:03:56 84 >=60 (mL/min) Final eGFR is calculated based on the CKD-EPI 2020 equation SODIUM 09/27/2023 17:03:56 128 Below low normal 135 -146 (mmol/L) Final Potassium 09/27/2023 17:03:56 5.0 3.5-5.1 (m mol/L) Final Cl 09/27/2023 17:03:56 92 Below low normal 98- 107 (mmol/L) Final CO2 09/27/2023 17:03:56 23 22-32 (mmo l/L) Final Anion gap 09/27/2023 17:03:56 13 7-15 (mmol /L) Final Glucose 09/27/2023 17:03:56 98 70-120 (mg /dL) Final Calcium 09/27/2023 17:03:56 9.7 8.4-10.2 ( mg/dL) Final Performing Location LABORATORY [facility] [place] - [address] [place] [address]
--- OUTSIDE RECORDS SUMMARY | 2023-11-15 14:39 | External Medical Summary ---
Author Name Unknown Address Unknown Organization K01:LABORATORY [facility] [place] - [address] [place] [address] Laboratory Report Ordering Provider Test Date Status ANALI CHASE 09/27/2023 17:03:56 Final Observation Date Value Abnormality Reference (Units ) Status Vitamin B12 09/27/2023 17:03:56 >2000 Above high normal 232-1245 (pg/mL) Final Performing Location LAB[facility]ATORY [facility] - [address] [place] [address]
--- OUTSIDE RECORDS SUMMARY | 2023-11-15 18:24 | External Medical Summary | Summary of Care ---
Author Name Unknown Organization [facility] Address [address] [place] [address] Phone [phone] Care Team Providers Care Stylist Apprentice Name Role Phone Angelo Vazquez MD Primary Care Provider + Reason for Referral * Evaluate & Treat - Unlimited Visits (Within 3 days (urgent)) - Authorized Specialty Diagnoses / Procedures Referred By Mily burger Referred To Contact Orthopaedic Surgery / Orthopedics Diagnoses Right leg injury Angelo Vazquez MD [phone] [place] [id number] Referral ID Status Reason Start Date Expiration Date Visits Requested Visits Authorized [id number] Authorized Specialty Services Required 11/14/[phone] Question Answer Referral Priority Within 3 days (urgent) Where should this appointment be scheduled? [facility] What body part is the patient being seen for? Thigh/Knee What condition is the patient being seen for? Sprain/Strain/Tear/Other Encounter Details Date Type Department Care Team (Late st Contact Info) Description 11/14/2023 Orders Only Family Practice [facility] [address] [place] [address] Angelo Vazquez MD [address] [place] [address] Right leg injury* Allergies Active Allergy Reactions Criticality Noted Date [...] Tablet (Lipitor)Indication s:Paroxysmal atrial fibrillation (HCC),CAD in [place] artery,S/P CABG x 3 TAKE ONE TABLET BY MOUTH DAILY 90 Tablet 3 01/20/2023 01/25/2024 Active metFORMIN HCl 500 MG Oral Tablet (Glucophage)Indicat ions:Type 2 diabetes mellitus with hemoglobin A1c goal of less than 8.0% (HCC) TAKE ONE TABLET BY MOUTH DAILY 90 Tablet 3 04/21/2023 04/20/2024 Active Nitroglycerin 0.4 MG Sublingual Tablet Sublingual (Nitrostat)Indicati ons:CAD in [place] artery DISSOLVE 1 TABLET UNDER THE TONGUE [...] Mild 2013 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 Prior: 5 stents-hx [...] Team (Late st Contact Info) Description 11/14/2023 2:40 PM EDT Laboratory Laboratory, [facility] [address] [facility] [phone] [facility] [address] [facility] [address] 11/30/2023 9:20 AM EDT Office Visit Nephrology, [facility] [address] [place] [address] Jose Winter MD [address] [place] [address] 12/06/2023 11:30 AM EDT Office Visit Cardiology, [facility] [address] [facility] [place] [address] Melyssa Cornell, [address] [facility] [place] [address] 12/26/2023 3:00 PM EDT Office Visit Cardiology, [facility] [address] [facility] [address] Ewelina Poole PA-C 132 [facility] [place] [address] 01/24/2024 1:30 PM EDT Office Visit Urology, [facility] [address] [facility] [place] [address] Geroge Tran MD [address] [place] [address] [place] [address] 03/13/2024 3:00 PM EDT Cardiac Studies Cardiac Studies, [facility] [address] [facility] [place] [address] Scheduled Referrals Name Type Priority Associated Diagnoses Order Schedule ORTHOPAEDICS REFERRAL OP Referral Within 3 days (urgent) Right leg injury Ordered: 11/14/2023 Health Maintenance Due Date Last Done Comments [...] this encounter Medical Devices Implanted Type Area Automatic Steel Tie Adjuster Device Identifier Shelf Expiration Date Model / Serial / Lot Franko Mayen 6 M654g - [id number] Implanted:Qty: 4 on 05/30/2014 by Stanislav Hilliard MD at [place] [facility] [place] N/A: Chest JNJ : [employer] 02/07/2019 M654G / / [id number] Marker Coronary [facility] - [id number] Implanted:Qty: 2 on 05/30/2014 by Stanislav Hilliard MD at [place] [facility] [place] N/A: Aorta [employer] 03/10/2017 [facility] / / [id number] Lens Intraoc 20.5 - [id number] - [id number] Implanted:Qty: 1 on 02/18/2022 by Yandel Bowens MD at OR [facility] Left: Eye [employer] 11/07/2026 [id number] / [id number] / [id number] Lens Intraoc 21.5 - [id number] - [id number] Implanted:Qty: 1 on 03/04/2022 by Yandel Bowens MD at OR [facility] Right: Eye [employer] 10/08/2026 [id number] / [id number] / [id number] documented as of this encounter Visit Diagnoses Diagnosis Right leg injury- Primary Injury, other and unspecified, knee, leg, ankle, and foot documented in this encounter Advance Directives Latest Code Status on File Code Status Date Activated Date Inactivated Comments No Code 03/04/2022 8:43 AM 03/04/2022 2:28 PM This order reflects the patients wishes and were consensually agreed upon. Question Answer Comments Discussion of Advance Directives occurred with: Patient Does the patient have a Living Will? No Does the patient have Health Care Power of Fish Straightener? No Code Status History Code Status Date Activated Date Inactivated Comments No Code 02/18/2022 7:51 AM 02/18/2022 2:15 PM This order reflects the patients wishes and were consensually agreed upon. Question Answer Comments Discussion of Advance Directives occurred with: Patient Does the patient have a Living Will? No Does the patient have Health Care Power of Fish Straightener? No Full Code 01/04/2019 6:51 PM 01/06/2019 [...] the patient have Health Care Power of Fish Straightener? No Care Teams Stylist Apprentice Relationship Specialty Start Date End Date Angelo Vazquez MD [address] [facility] [place] [address] PCP - General Family Medicine 06/24/14 documented as of this encounter
[2023-11-15 18:42] LABS: BUN Creatinine Ratio 23.8 (10-20); Calcium 8.4 mg/dl (8.6-10.3); Creatinine Clr Calc Pharmacy 59.3 ml/min; Est GFR (African American) 77.7 ml/min; Potassium 4.6 mmol/L (3.5-5.1)
[2023-11-15] MEDS: UREA (UREA-NA) 15 GM PACK PO SCH (21:04)
[2023-11-15 21:50] LABS: Hematocrit (blood only) 24.5 % (42.0-52.0); Hemoglobin 8.5 g/dl (14.0-18.0)
--- NOTE | 2023-11-15 22:00 | Orthopedic Consultation ---
Date of Consultation November 15, 2023 Assessment & Plan (1) Closed right hip fracture: 88-year-old male with periprosthetic greater trochanter fracture -Pain control -DVT prophylaxis -Nonweightbearing right lower extremity with no active hip abduction -PT/OT -Medical management upon reviewing imaging the patient's femoral prosthesis in stable position unchanged from previous CT scan from July 2023. There is no significant displacement of the trochanteric fragment. Would recommend conservative treatment. -No further orthopedic intervention at this time. Will sign off. May follow-up as an outpatient in 10 to 14 days History of Present Illness Reason for Consultation: periprosthetic right hip fracture Attending Physician: Castro Alvarado MD History of Present Illness 88 yo male presenting after sustaining a mechanical fall. Due to pain in his right hip and inability to ambulate. History of prior right total hip a rthroplasty. In the emergency department radiographs were obtained demonstrating a nondisplaced fracture involving the right greater trochanter with stable femoral component. Patient was admitted for ambulatory dysfunction and orthopedics was consulted for management recommendations. Allergies Allergy/AdvReac Type Severity Reaction Status Date / Time bee venom protein (honey bee) Allergy Unknown swelling Verified 05/31/21 17:06 iodine Allergy Unknown DUE TO Verified 05/31/21 17:06 SHELLFISH ALLERGY-IODINATED DYE-UNKNOWN morphine Allergy Unknown stopped Verified 05/31/21 17:06 breathing Penicillins Allergy Unknown RASH Verified 05/31/21 17:06 shellfish derived Allergy Unknown ANAPHYLAXIS Verified 05/31/21 17:06 Home Medications Medication Instructions Recorded Confirmed Type aspirin 81 mg tablet,delayed 81 mg PO QAM 07/21/19 11/14/23 History release atorvastatin 80 mg tablet 80 mg PO HS 07/21/19 11/14/23 History metformin 500 mg tablet 500 mg PO QAM 07/21/19 11/14/23 History pantoprazole 40 mg tablet,delayed 40 mg PO QAM 07/21/19 11/14/23 History release nitroglycerin 0.4 mg sublingual 0.4 mg sublingual Q5M PRN Chest 05/31/21 11/14/23 History tablet Pain finasteride 5 mg tablet 5 mg PO QAM 11/29/22 11/14/23 History iron,carbonyl 65 mg-vitamin C 125 1 tab PO QAM 11/29/22 11/14/23 History mg tablet,delayed release (Vitron-C) levothyroxine 50 mcg tablet 50 mcg PO DAILYBB 11/29/22 11/14/23 History metoprolol succinate 25 mg 25 mg PO DAILY 11/29/22 11/14/23 History tablet,extended release 24 hr apixaban 5 mg tablet (Eliquis) 5 mg PO Q12H #60 tabs 12/01/22 11/14/23 Rx potassium chloride 20 mEq 20 meq PO DAILY #30 tabs 12/01/22 11/14/23 Rx tablet,extended release acetaminophen 650 mg 1,300 mg PO Q12H PRN Pain 07/21/23 11/14/23 History tablet,extended release (Tylenol 8 Hour) cyanocobalamin (vitamin B-12) 1,000 mcg PO DAILY 07/21/23 11/14/23 History 1,000 mcg tablet (Vitamin B-12) escitalopram oxalate 10 mg tablet 10 mg PO QAM 07/21/23 11/14/23 History folic acid 1 mg tablet 1 mg PO DAILY 11/14/23 11/14/23 History furosemide 40 mg tablet (Lasix) 40 mg PO DAILY 11/14/23 11/14/23 History Patient History Medical History (Updated 11/15/23 @ 17:33 by Tess Badillo MD, PhD) SIADH (syndrome of inappropriate ADH production) DMII (diabetes mellitus, type 2) Tachy-santy syndrome Dyslipidemia Diabetes mellitus type 2 with complications Coronary artery disease Lumbar stenosis Paroxysmal atrial fibrillation Hypertension Surgical History History of carpal tunnel surgery "bilateral" S/P total hip arthroplasty S/P total knee arthroplasty 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; Ayo" Family History Father Coronary heart disease Social History Smoking Status: Never smoker Second Hand Exposure: No; Do You Dip or Chew Tobacco: No; Hx Alcohol Use: No Hx Substance Use: No Preferred Language: Czech Communication Ability: Effective Mainspring Winder And 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 Required: No Beliefs That Will Affect Care: None marital status: Current Living Situation: Spouse current occupational status: retired Feels Safe at Home: Yes Assistive Devices: Cane and Walker Physical Exam Physical Exam: NAD, resting in bed Musculoskeletal: RLE - well healed surgical scar + TTP over GT - able to SLR - silt s/spn/dpn/t/s - fires ta/ehl/gsc + dp/pt Results & Data Vital Signs (Past 12 Hours) Vital Signs Temp Pulse Pulse Resp BP BP Pulse Ox 11/15/23 19:17 36.6 C 63 18 110/67 99 11/15/23 15:26 36.7 C 62 16 91/55 L 99 11/15/23 14:00 66 18 100/59 L 96 11/15/23 13:50 66 19 11/15/23 13:40 66 20 11/15/23 13:30 69 20 11/15/23 13:20 64 15 11/15/23 13:10 61 14 11/15/23 13:00 66 16 11/15/23 12:50 71 16 89 L 11/15/23 12:40 60 15 99 11/15/23 12:30 58 L 17 100 11/15/23 12:20 65 16 100 11/15/23 12:10 67 19 100 11/15/23 12:00 60 15 99 11/15/23 11:50 61 15 99 11/15/23 11:40 57 L 16 99 11/15/23 11:30 59 L 14 99 11/15/23 11:20 59 L 19 99 11/15/23 11:10 60 16 99 11/15/23 11:01 61 9 L 100 11/15/23 10:43 59 L 14 100 11/15/23 10:35 62 14 100 O2 Del Method 11/15/23 19:17 Room Air 11/15/23 15:26 Room Air 11/15/23 14:00 11/15/23 13:50 11/15/23 13:40 11/15/23 13:30 11/15/23 13:20 11/15/23 13:10 11/15/23 13:00 11/15/23 12:50 11/15/23 12:40 11/15/23 12:30 11/15/23 12:20 11/15/23 12:10 11/15/23 12:00 11/15/23 11:50 11/15/23 11:40 11/15/23 11:30 11/15/23 11:20 11/15/23 11:10 11/15/23 11:01 11/15/23 10:43 11/15/23 10:35
--- NOTE | 2023-11-16 04:04 | Electrocardiogram Report ---
Test Reason : Blood Pressure : / mmHG Vent. Rate : 078 BPM Atrial Rate : 078 BPM P-R Int : 304 ms QRS Dur : 090 ms QT Int : 430 ms P-R-T Axes : 075 059 152 degrees QTc Int : 490 ms Sinus rhythm with 1st degree A-V block with Premature supraventricular complexes Anterior infarct , age undetermined T wave abnormality, consider lateral ischemia Prolonged QT Abnormal ECG When compared with ECG of 21-JUL-2023 08:02, Premature supraventricular complexes are now Present Anterior infarct is now Present Confirmed by Mervin Last ([id number]) on 11/16/2023 4:04:29 AM Referred By: REFERRED SELF Confirmed By:Mervin Last
[2023-11-16 08:24] LABS: Hemoglobin 8.4 g/dl (14.0-18.0); Mean Corpuscular Hemoglobin 31.3 pg (25.0-34.0); Mean Corpuscular Hgb Conc 33.6 g/dL (32.0-36.0); Mean Corpuscular Volume 93.3 fL (80.0-100.0); Mean Platelet Volume 9.3 fL (9.4-12.4); Platelet Count 110 K/uL (130-400); RDW Coefficient of Variation 13.8 % (11.5-14.5); RDW Standard Deviation 47.2 fL (36.4-46.3); Red Blood Count 2.68 M/uL (4.70-6.10); White Blood Count 6.86 K/ul (4.8-10.8)
[2023-11-16] MEDS: DICLOFENAC SOD 1% GEL 100 GM TUBE EXT PRN (08:24)
[2023-11-16 09:10] LABS: BUN Creatinine Ratio 37.3 (10-20); Calcium 8.2 mg/dl (8.6-10.3); Creatinine Clr Calc Pharmacy 72.2 ml/min; Est GFR (African American) 92.3 ml/min; Est GFR (Non-African American) 79.7 ml/min; Magnesium 1.8 mg/dl (1.7-2.4); Potassium 4.6 mmol/L (3.5-5.1)
--- NOTE | 2023-11-16 09:45 | Nephrology Progress Note ---
Date of Service November 16, 2023 Assessment & Plan (1) SIADH (syndrome of inappropriate ADH production): Plan: hx of SIADH w/ baseline sNa as OP high 120s/low 130s, in part d/t nonadherence. euvolemic on evaluation. no need to repeat urine studies/ serum osms as this has been a longstanding/conssistent dx. -upper limit sNa for tomorrow is no more than 132 -cont FR 1.8L toward which protein shakes do not count; cannot r/o need for tighter FR -strict I/O -avoid nsaids in pain control -control pain which can increase ADH release -will recheck bmp now and would check bid while sNa <127 > repeat ordered for 1500 >started lasix 10 mg IV daily >cont urea 15 gm bid care coordinated w/ dr sadler in terms of timing of labs, FR, therapy for hyponatremia and we are in agreement (2) Compression fracture of T12 vertebra: Plan: per primary service and ortho; Admission and Anticipated Discharge Date Admission Date: November 14, 2023 Subjective remains NPO for possible pacer procedure; pt seen on late AM rounds. some question about whether he'll consent to procedure. no n/v, some chest pain on L side at interview Review of Systems 2 Review of Systems: All systems reviewed & are unremarkable except as noted in Subjective Physical Exam 2 Constitutional: well developed, well nourished, + frail appearing and cooperative; no acute distress Eyes: EOM intact bilaterally ENMT: Ears: no external ear abnormality Nose: no external nose abnormality Mouth: + dry oral mucous membranes Neck: no nuchal rigidity Respiratory: normal respiratory effort Auscultation: + diminished lung sounds and + crackles Cardiovascular: Rate/Rhythm: regular rate and regular rhythm Heart Sounds: + murmur Extremities: no edema chest pain not reproducible Gastrointestinal (Abdomen): Inspection/Auscultation: normal bowel sounds P ercussion/Palpation: abdomen soft; abdomen nontender Musculoskeletal: Extremities: strength 5/5 throughout Skin: no rashes, warm and dry Psychiatric: Orientation: oriented to person (unreliable historian), oriented to place and cooperative Results & Data Vital Signs (Past 12 Hours) Vital Signs Temp Pulse Pulse Pulse Resp BP Pulse Ox 11/16/23 07:20 36.4 C L 80 18 131/77 98 11/16/23 03:11 36.7 C 79 16 156/84 H 99 11/15/23 23:07 70 11/15/23 22:57 36.6 C 69 16 126/70 98 O2 Del Method 11/16/23 07:20 Room Air 11/16/23 03:11 Room Air 11/15/23 23:07 11/15/23 22:57 Room Air Laboratory Results 11/16/23 07:32 11/16/23 07:32
--- NOTE | 2023-11-16 09:53 | Orthopedic Consultation ---
Date of Service November 16, 2023 History of Present Illness Reason for Consultation: Thoracolumbar compression fractures Requesting Physician: . Attending Physician: Jose Angel Hayes MD 88 yo M presents with right hip pain after a mechanical fall at home. Patient reports that he had a slight fall in the bathroom, was able to mobilize himself to his wheeled walker with seat, his son who lives next-door was able to come over and meet with him. He is status post an T12 fracture from a fall in June 2023. He notes his legs came out on him when he was finishing up on the toilet, he feels his back pain is about the same as it was prior to the injury. He was treated with a brace prior to this, but he does not wear it as he does not like wearing it. He does not report any lower extremity symptoms of a neural compressive nature. Patient had minimal to any tenderness since palpation his lumbar spine thoracolumbar spine, the skin is intact. He has intact strength in lower extremities. Review of CT scans of the lumbar spine from November 14, 2023, this my separate interpretation, this is compared to previous images of the abdomen and pelvis from July 21, 2023. This reveals the patient to have osteoporotic findings and degenerative changes involving lumbar spine there is a approximately 50% loss of height at T12 perhaps around 25% loss of height with the inferior aspect of T11. Impression: Compression fractures of T11 and T12, the T12 fracture appears to be from June with development of recent fall of the inferior aspect of T11. Plan: Today I spent time talking the patient and his son who was present in the room, I related that I would be in agreement more likely the T11 fracture is new but it is also possible that least this was a continuation of a nondisplaced fracture that may have happened previously and now is continued to show some compression. Regardless, he has fractures of both these levels, and this is developing some kyphosis but there is no significant central stenosis. At this time I recommended to the patient he do utilize his brace and try to utilize good posture no bending lifting twisting. I requested the patient follow-up in the office in the next 2 weeks for additional radiographs at the thoracolumbar junction AP and lateral views. While in hospital mobilization can occur using a walker which he utilizes at home. Allergies Allergy/AdvReac Type Severity Reaction Status Date / Time bee venom protein (honey bee) Allergy Unknown swelling Verified 05/31/21 17:06 iodine Allergy Unknown DUE TO Verified 05/31/21 17:06 SHELLFISH ALLERGY-IODINATED DYE-UNKNOWN morphine Allergy Unknown stopped Verified 05/31/21 17:06 breathing Penicillins Allergy Unknown RASH Verified 05/31/21 17:06 shellfish derived Allergy Unknown ANAPHYLAXIS Verified 05/31/21 17:06 Home Medications Medication Instructions Recorded Confirmed Type aspirin 81 mg tablet,delayed 81 mg PO QAM 07/21/19 11/14/23 History release atorvastatin 80 mg tablet 80 mg PO HS 07/21/19 11/14/23 History metformin 500 mg tablet 500 mg PO QAM 07/21/19 11/14/23 History pantoprazole 40 mg tablet,delayed 40 mg PO QAM 07/21/19 11/14/23 History release nitroglycerin 0.4 mg sublingual 0.4 mg sublingual Q5M PRN Chest 05/31/21 11/14/23 History tablet Pain finasteride 5 mg tablet 5 mg PO QAM 11/29/22 11/14/23 History iron,carbonyl 65 mg-vitamin C 125 1 tab PO QAM 11/29/22 11/14/23 History mg tablet,delayed release (Vitron-C) levothyroxine 50 mcg tablet 50 mcg PO DAILYBB 11/29/22 11/14/23 History metoprolol succinate 25 mg 25 mg PO DAILY 11/29/22 11/14/23 History tablet,extended release 24 hr apixaban 5 mg tablet (Eliquis) 5 mg PO Q12H #60 tabs 12/01/22 11/14/23 Rx potassium chloride 20 mEq 20 meq PO DAILY #30 tabs 12/01/22 11/14/23 Rx tablet,extended release acetaminophen 650 mg 1,300 mg PO Q12H PRN Pain 07/21/23 11/14/23 History tablet,extended release (Tylenol 8 Hour) cyanocobalamin (vitamin B-12) 1,000 mcg PO DAILY 07/21/23 11/14/23 History 1,000 mcg tablet (Vitamin B-12) escitalopram oxalate 10 mg tablet 10 mg PO QAM 07/21/23 11/14/23 History folic acid 1 mg tablet 1 mg PO DAILY 11/14/23 11/14/23 History furosemide 40 mg tablet (Lasix) 40 mg PO DAILY 11/14/23 11/14/23 History Past Med/Surg History Medical History (Updated 11/15/23 @ 17:33 by Tess Badillo MD, PhD) SIADH (syndrome of inappropriate ADH production) DMII (diabetes mellitus, type 2) Tachy-santy syndrome Dyslipidemia Diabetes mellitus type 2 with complications Coronary artery disease Lumbar stenosis Paroxysmal atrial fibrillation Hypertension Surgical History History of carpal tunnel surgery "bilateral" S/P total hip arthroplasty S/P total knee arthroplasty 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 Physical Exam . Results & Data Results & Data Laboratory Results . Diagnostic Findings . PG Care Time/CCT Total # of Minutes Spent Total Time Spent with Patient: Total time spent is greater than 50% in coordination of care (as documented) at patient's floor/unit and/or counseling patient: Coding Level of Care Code 98649 IN/OBS CONSULT LVL 3,45M
[2023-11-16] MEDS: FUROSEMIDE INJ 20 MG/2 ML VIAL IV SCH (10:10)
--- NOTE | 2023-11-16 13:04 | Cardiology Progress Note ---
Date of Service November 16, 2023 Assessment & Plan (1) Ground-level fall: (2) Preop cardiovascular exam: (3) Acute hyponatremia: (4) Tachy-santy syndrome: (5) Paroxysmal atrial fibrillation: (6) ASCVD (arteriosclerotic cardiovascular disease): (7) Aortic stenosis: Plan Complex 88-year-old male admitted following a ground-level mechanical fall with resultant closed right hip fracture, acute fractures of the T11 and T12 vertebral bodies, and possibly mildly displaced fractures of the right anterior ninth and 10th ribs. Cardiology consultation requested for preoperative clearance with orthopedic injuries to be managed conservatively. Patient scheduled for permanent pacemaker implantation later today with Dr. Cornell for Tachy-Santy Syndrome, paroxysmal atrial fibrillation and flutter. Eliquis is on hold. ASCVD is stable. LV systolic function preserved. Moderate to severe aortic stenosis noted via August 2023 resting echocardiography. Nephrology managing hyponatremia, SIADH. Admission and Anticipated Discharge Date Admission Date: November 14, 2023 Supervising Physician Co-Signing Physician Notes Patient was seen and personally examined. Full assessment and plan as outlined above by advanced provider. Care, management discussed with advanced provider and endorsed personally Complex 88-year-old male suffered a mechanical fall with injuries as noted above. Pain controlled today. Patient agreeable to undergo pacemaker later today. Discussed in detail with patient and family I spent a total of 20 minutes on the date of service in preparation, delivery, and documentation of the care provided to this patient excluding any time spent in the performance of separately billed services. Subjective Patient seen and examined. Chart, medications, and telemetry reviewed. and son at bedside. Patient scheduled for permanent pacemaker implantation today. Telemetry: Sinus with a first-degree AV block, atrial ectopy, heart rates predominantly in the 60s and 70s. Review of Systems Review of Systems: Complete review of systems is otherwise as stated above, negative, or noncontributory. Physical Exam Physical Exam: General: NAD. HENT: Normocephalic. Atraumatic. Eyes: PER. Conjunctiva pink, sclera clear. Neck: Bilateral carotid bruits. No JVD. No HJR. Heart: RRR, 60 bpm. Grade III/ systolic ejection murmur. No diastolic murmur. Lungs: Clear to auscultation anterolaterally. Abdomen: +BS. Soft. Nontender. No masses or organomegaly. Extremities: No clubbing, cyanosis, or edema. Limited neurological examination is without focal deficits. Pulses: radial=2/4, posterior tibial=0/4 on the right and 1/4 on the left Results & Data Vital Signs (Past 12 Hours) Vital Signs Temp Pulse Pulse Resp BP Pulse Ox O2 Del Method 11/16/23 11:30 36.6 C 62 18 122/64 97 Room Air 11/16/23 07:20 36.4 C L 80 18 131/77 98 Room Air 11/16/23 03:11 36.7 C 79 16 156/84 H 99 Room Air Laboratory Results CBC 11/15/23 11/16/23 Range/Units 20:51 07:32 WBC 6.86 (4.8-10.8) K/ul RBC 2.68 L (4.70-6.10) M/uL Hgb 8.5 L 8.4 L (14.0-18.0) g/dl Hct 24.5 L 25.0 L (42.0-52.0) % Plt Count 110 L (130-400) K/uL Comprehensive Metabolic Panel 11/15/23 11/16/23 Range/Units 18:14 07:32 Sodium 125 L 126 L (136-145) mmol/L Potassium 4.6 4.6 (3.5-5.1) mmol/L Chloride 93 L 94 L (98-107) mmol/L Carbon Dioxide 24 25 (21-32) mmol/L BUN 24 H 31 H (6-23) mg/dl Creatinine 1.01 0.83 (0.6-1.4) mg/dl Glucose 123 H 111 H (70-99(Fasting)) mg/dl Calcium 8.4 L 8.2 L (8.6-10.3) mg/dl Intake and Output 11/15/23 11/16/23 11/16/23 22:59 06:59 14:59 Intake Total 340 / 714.167 360 / 714.167 450 / 450 Output Total 400 / 1750 800 / 1750 800 / 800 Balance -60 / -1035.833 -440 / -1035.833 -350 / -350 Intake: IV 100 / 114.167 Magnesium Sulfate / D5w 1 gm In 100 / 114.167 100 ml @ 50 mls/hr IV Q2H [facility] Rx#:[id number] Oral 240 / 600 360 / 600 450 / 450 Output: Urine Amount (Catheter) 400 / 1750 800 / 1750 800 / 800 Olivo/Indwelling 400 / 1750 800 / 1750 800 / 800
--- NOTE | 2023-11-16 14:09 | History & Physical Bridge Note ---
Date of Service November 16, 2023 History & Physical Bridge Note I have examined the patient, reviewed the History & Physical and in the interval since the performance of the History & Physical I have noted the following changes of clinical significance: Pt was admitted to [facility] due to a fall but I had seen pt in the office and he was scheduled for a ppm as an out patient due to TBS. I re-discussed the procedure and potential risks and consents signed.
--- NOTE | 2023-11-16 14:09 | Pre Anesthesia Assessment ---
Date of Service November 16, 2023 Pre Sedation Assessment Vital Signs Temp Pulse Pulse Pulse Resp BP Pulse Ox 11/16/23 11:30 36.6 C 62 18 122/64 97 11/16/23 07:20 36.4 C L 80 18 131/77 98 11/16/23 03:11 36.7 C 79 16 156/84 H 99 11/15/23 23:07 70 11/15/23 22:57 36.6 C 69 16 126/70 98 11/15/23 19:17 36.6 C 63 18 110/67 99 11/15/23 15:26 36.7 C 62 16 91/55 L 99 O2 Del Method 11/16/23 11:30 Room Air 11/16/23 07:20 Room Air 11/16/23 03:11 Room Air 11/15/23 23:07 11/15/23 22:57 Room Air 11/15/23 19:17 Room Air 11/15/23 15:26 Room Air Cardiovascular RRR, no murmur, no edema Respiratory normal respiratory effort, lungs clear to auscultation Pre-Sedation Airway Assessment Smoking Status: Never smoker Hx Sleep Apnea: No Hx Difficult Intubation: No Short, Thick Neck: No Thyromental Distance: < 3.5 Finger Breadths Oral Cavity: + Dental Abnormalities ASA: ASA3 NPO Status Date of Last Intake of Fluids: 11/15/23 Date of Last Intake of Solid Food: 11/15/23 Procedure Planning Contraindications for Sedation: none Current Medications Reviewed: Yes Notes The planned sedation has been discussed with the patient. Informed Consent was obtained. I have identified the patient, determined the appropriateness of sedation and have assessed the patient immediately prior to the procedure. All medicine(s) and interventions are by my order.
--- NOTE | 2023-11-16 14:57 | Psychiatric Consultation ---
Date of Consultation November 16, 2023 Impression / Recommendations Impression In my medical opinion this patient does not have capacity to make a medical decision regarding pacemaker placement because patient presents limited orientation, he is unable to understand the relevant information, he is unable to appreciate the situation and its consequences, he does not assign personal value to the consequences, and he is unable to reason rationally. Psych History Identifying Data 88-year-old male presents to the hospital after a mechanical fall with resultant closed right hip fracture, acute fractures of the T11 and T12 vertebral bodies, and possibly mildly displaced fractures of the right anterior ninth and 10th ribs. Chief Complaint Decision Making Capacity. History of Present Illness 88-year-old male presents to the hospital after a mechanical fall with resultant closed right hip fracture, acute fractures of the T11 and T12 vertebral bodies, and possibly mildly displaced fractures of the right anterior ninth and 10th ribs. Patient scheduled for permanent pacemaker implantation later today with Dr. Cornell for Tachy-Alejandro Syndrome, paroxysmal atrial fibrillation and flutter. Psychiatry consulted for decision making capacity regarding pacemaker placement. Collateral from family- patient has no past history of psychiatric history. On exam patient is alert and oriented to his name current city year and month. He is unable to state the name of the hospital. The patient expresses understanding he is hospitalized because of a recent fall. He confirms a treatment that is being recommended is a pacemaker placement so his heart can "beat normally." he is unable to state further benefits of getting a pacemaker. When asked what the consequences he may face if he refuses treatment he appears ambivalent and says that he will be fine. He is unable to state any alternatives available to not getting treatment and the corresponding consequences. After explaining to the patient of the possibility of arrhythmia and continues to be ambivalent about the consequence. after explaining to the patient the potential benefits and risks of treatment and consequences of avoiding treatment continues to appear ambivalent and cannot state the benefits or consequences of receiving or refusing treatment. Allergies Allergy/AdvReac Type Severity Reaction Status Date / Time bee venom protein (honey bee) Allergy Unknown swelling Verified 05/31/21 17:06 iodine Allergy Unknown DUE TO Verified 05/31/21 17:06 SHELLFISH ALLERGY-IODINATED DYE-UNKNOWN morphine Allergy Unknown stopped Verified 05/31/21 17:06 breathing Penicillins Allergy Unknown RASH Verified 05/31/21 17:06 shellfish derived Allergy Unknown ANAPHYLAXIS Verified 05/31/21 17:06 Home Medications Medication Instructions Recorded Confirmed Type aspirin 81 mg tablet,delayed 81 mg PO QAM 07/21/19 11/14/23 History release atorvastatin 80 mg tablet 80 mg PO HS 07/21/19 11/14/23 History metformin 500 mg tablet 500 mg PO QAM 07/21/19 11/14/23 History pantoprazole 40 mg tablet,delayed 40 mg PO QAM 07/21/19 11/14/23 History release nitroglycerin 0.4 mg sublingual 0.4 mg sublingual Q5M PRN Chest 05/31/21 11/14/23 History tablet Pain finasteride 5 mg tablet 5 mg PO QAM 11/29/22 11/14/23 History iron,carbonyl 65 mg-vitamin C 125 1 tab PO QAM 11/29/22 11/14/23 History mg tablet,delayed release (Vitron-C) levothyroxine 50 mcg tablet 50 mcg PO DAILYBB 11/29/22 11/14/23 History metoprolol succinate 25 mg 25 mg PO DAILY 11/29/22 11/14/23 History tablet,extended release 24 hr apixaban 5 mg tablet (Eliquis) 5 mg PO Q12H #60 tabs 12/01/22 11/14/23 Rx potassium chloride 20 mEq 20 meq PO DAILY #30 tabs 12/01/22 11/14/23 Rx tablet,extended release acetaminophen 650 mg 1,300 mg PO Q12H PRN Pain 07/21/23 11/14/23 History tablet,extended release (Tylenol 8 Hour) cyanocobalamin (vitamin B-12) 1,000 mcg PO DAILY 07/21/23 11/14/23 History 1,000 mcg tablet (Vitamin B-12) escitalopram oxalate 10 mg tablet 10 mg PO QAM 07/21/23 11/14/23 History folic acid 1 mg tablet 1 mg PO DAILY 11/14/23 11/14/23 History furosemide 40 mg tablet (Lasix) 40 mg PO DAILY 11/14/23 11/14/23 History Patient History Medical History SIADH (syndrome of inappropriate ADH production) DMII (diabetes mellitus, type 2) Tachy-alejandro syndrome Dyslipidemia Diabetes mellitus type 2 with complications Coronary artery disease Lumbar stenosis Paroxysmal atrial fibrillation Hypertension Surgical History History of carpal tunnel surgery "bilateral" S/P total hip arthroplasty S/P total knee arthroplasty 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; [place]" Family History Father Coronary heart disease Social History Smoking Status: Never smoker Second Hand Exposure: No; Do You Dip or Chew Tobacco: No; Hx Alcohol Use: No Hx Substance Use: No Preferred Language: Cuban Communication Ability: Effective Associate Faculty Required: No Beliefs That Will Affect Care: None marital status: Current Living Situation: Spouse current occupational status: retired Feels Safe at Home: Yes Assistive Devices: Cane and Walker Physical Exam Mental Examination: Appearance: Disheveled Eye Contact: Sporadic Contact Motor Behavior: Unremarkable Speech: Normal Mood: Irritable Affect: Congruent Thought Process: Evasive Thought Content: Tangential and Evasive Hallucinations: None Insight: Poor Judgement: Poor Vital Signs (Past 24 Hours): Last Vital Signs Temp 36.6 C 11/16/23 11:30 Pulse 65 11/16/23 14:16 Resp 18 11/16/23 14:16 BP 103/68 11/16/23 14:16 Pulse Ox 99 11/16/23 14:16 O2 Del Method Room Air 11/16/23 14:16 Results & Data (PSY) Medications Administered Acetaminophen (Acetaminophen 500 Mg Tab) 1,000 mg PO Q8H [facility] Stop: 12/15/23 04:59 Last Admin: 11/16/23 12:47 Dose: 1,000 mg Documented By: Admin: 11/16/23 05:29 Dose: 1,000 mg Documented By: Admin: 11/15/23 21:03 Dose: 1,000 mg Documented By: Admin: 11/15/23 14:03 Dose: 1,000 mg Documented By: Admin: 11/15/23 06:46 Dose: 1,000 mg Documented By: KG Aspirin (Aspirin 81 Mg Ectab) 81 mg PO QAM [facility] Stop: 12/15/23 08:59 Last Admin: 11/16/23 08:25 Dose: 81 mg Documented By: Admin: 11/15/23 08:17 Dose: 81 mg Documented By: ADOLFO Atorvastatin Calcium (Atorvastatin 40 Mg Tab) 80 mg PO [facility] Stop: 12/14/23 21:22 Last Admin: 11/15/23 21:04 Dose: 80 mg Documented By: Admin: 11/14/23 22:39 Dose: 80 mg Documented By: ERIN Diclofenac Sodium (Diclofenac Sod 1% Gel 100 Gm Tube) 2 gm EXT Q6H PRN; Protocol PRN Reason: bony pain Stop: 12/16/23 05:36 Last Admin: 11/16/23 08:24 Dose: 2 gm Documented By: PETROS Escitalopram Oxalate (Escitalopram Oxalate 10 Mg Tab) 10 mg PO [facility] Stop: 12/15/23 08:59 Last Admin: 11/16/23 08:25 Dose: 10 mg Documented By: Admin: 11/15/23 08:17 Dose: 10 mg Documented By: ADOLFO Finasteride (Finasteride 5 Mg Tab) 5 mg PO [facility] Stop: 12/15/23 08:59 Last Admin: 11/16/23 08:25 Dose: 5 mg Documented By: Admin: 11/15/23 08:17 Dose: 5 mg Documented By: ADOLFO Furosemide (Furosemide Inj 20 Mg/2 Ml Vial) 10 mg IV DAILY [facility] Stop: 12/16/23 09:59 Last Admin: 11/16/23 10:10 Dose: 10 mg Documented By: PETROS Insulin Aspart (Insulin Aspart Per Unit Charge) 0 units SC [facility] Stop: 12/14/23 21:22 Last Admin: 11/16/23 12:07 Dose: Not Given Documented By: PETROS Co-signed By: SHERRI Admin: 11/16/23 08:08 Dose: Not Given Documented By: PETROS Co-signed By: ARTHUR Admin: 11/15/23 21:06 Dose: Not Given Documented By: Admin: 11/15/23 18:13 Dose: Not Given Documented By: Admin: 11/15/23 12:57 Dose: Not Given Documented By: Admin: 11/15/23 08:33 Dose: Not Given Documented By: Admin: 11/14/23 22:42 Dose: Not Given Documented By: OTILIA Co-signed By: DMH Levothyroxine Sodium (Levothyroxine Sodium 50 Mcg Tablet) 50 mcg PO DAILYBB [facility] Stop: 12/15/23 06:29 Last Admin: 11/16/23 05:29 Dose: 50 mcg Documented By: Admin: 11/15/23 06:46 Dose: 50 mcg Documented By: ZENAIDA Metoprolol Succinate (Metoprolol Succ 25mg Ext Rel Tab) 25 mg PO DAILY [facility] Stop: 12/15/23 08:59 Last Admin: 11/16/23 08:24 Dose: 25 mg Documented By: Admin: 11/15/23 08:18 Dose: 25 mg Documented By: ADOLFO Oxycodone HCl (Oxycodone Hcl Ir 5 Mg Tab (Immediate Release)) 5 mg PO Q4H PRN PRN Reason: MODERATE Pain (4,5,6) & Pre PT Stop: 11/28/23 21:22 Last Admin: 11/15/23 00:52 Dose: 5 mg Documented By: ZENAIDA Pantoprazole Sodium (Pantoprazole 40 Mg Tab) 40 mg PO QAM [facility] Stop: 12/15/23 08:59 Last Admin: 11/16/23 08:25 Dose: 40 mg Documented By: Admin: 11/15/23 08:18 Dose: 40 mg Documented By: ADOLFO Urea (Urea (Urea-Na) 15 Gm Pack) 15 gm PO BID [facility] Stop: 12/15/23 20:59 Last Admin: 11/16/23 08:24 Dose: 15 gm Documented By: Admin: 11/15/23 21:04 Dose: 15 gm Documented By: YOUSU[place] [address] IN/OBS CONSULT LVL 2,35M Patient Type New History Problem Focused Exam Problem Focused Medical Decision Making Low Complexity Time Spent (min) 45
[2023-11-16] MEDS: LIDOCAINE 1% LOCAL 20 ML VIAL ONE (15:12)
[2023-11-16] MEDS: BUPIVACAINE 0.25% PF 30 ML VIAL ONE (15:12)
[2023-11-16] MEDS: WATER, STERILE FOR INJ 10 ML VIAL ONE (15:13)
[2023-11-16] MEDS: methylPREDNISolone 125 MG/2 ML VIAL ONE (15:13)
[2023-11-16] MEDS: diphenhydrAMINE 50 MG/ML VIAL ONE (15:14)
[2023-11-16] MEDS: VANCOMYCIN HCL 1000MG/20ML VIAL ONE (15:17)
--- NOTE | 2023-11-16 15:47 | Post Anesthesia Assessment ---
Date of Service November 16, 2023 Post Sedation Assessment Vital Signs Temp Pulse Pulse Pulse Resp BP Pulse Ox 11/16/23 14:17 36.5 C 65 14 103/68 99 11/16/23 14:16 65 18 103/68 99 11/16/23 11:30 36.6 C 62 18 122/64 97 11/16/23 07:20 36.4 C L 80 18 131/77 98 11/16/23 03:11 36.7 C 79 16 156/84 H 99 11/15/23 23:07 70 11/15/23 22:57 36.6 C 69 16 126/70 98 11/15/23 19:17 36.6 C 63 18 110/67 99 O2 Del Method 11/16/23 14:17 Room Air 11/16/23 14:16 Room Air 11/16/23 11:30 Room Air 11/16/23 07:20 Room Air 11/16/23 03:11 Room Air 11/15/23 23:07 11/15/23 22:57 Room Air 11/15/23 19:17 Room Air Recovery Score Activity: Moves 4 extremities Respiration: Deep Breath/Cough Circulation: +/-20% PreAnes Value Consciousness: Fully Awake Oxygen Saturation: > 92% On Room Air Discharge Sedation Level of Care: Fast Track Phase II Post Sedation Plan On clinical assessment, the patient appears to have tolerated the sedation without complications. Patient is recovering as anticipated. Patient will continue to be monitored by nursing and may be discharged when sedation discharge criteria are met per below protocol. Upon Completions of procedure up to 15 minutes continue every 5 minute vital signs and the P.A.R. score; then discharge to a Phase I or Fast Track to Phase II per the following guidelines: * Discharge Patient to appropriate Phase II area if PAR is 8 or greater or return to pre- procedure baseline. The post - procedure orders will be as directed. * If PAR score is less than 8 or not return to pre-procedure baseline then patient will follow Phase I monitoring till PAR is reached for Phase II. The Phase I may be done in procedure room or may call to secure a Phase I area. * If naloxone or flumazenil are used for reversal, hold in Phase I for continued monitoring from when last reversal dose was given for a minimum of 60 minutes or longer pending the nurse and/or physician discretion of patient condition before discharge to Phase II. Please call the Sedation Physician to re-evaluate and complete post-note for discharge to Phase II area. Do NOT discharge from procedure sedation or Phase 1 until post- sedation evaluation note is complete by procedure /sedation MD Sedation Discharge Instructions to be given to the patient at discharge to home.
--- NOTE | 2023-11-16 16:06 | Hospitalist Progress Note ---
Date of Service November 16, 2023 Assessment & Plan (1) Ground-level fall: Plan 88-year-old male who presented with right hip pain after mechanical fall at home is being managed for the following: Admitting labs: Hemoglobin 10.6 [baseline around 11-12],sodium 123 [baseline around 1 25-1 27], UA negative for UTI. Admitting imagings: Hip x-ray: Acute mildly comminuted intertrochanteric fracture. CXR: No acute chest disease. CT chest: Acute fracture of T11 and 12 vertebral bodies with 32% and 17% loss of vertebral body height respectively. Possible mildly displaced fracture of the right anterior ninth and 10th ribs. Lumbar spine CT: No evidence of acute lumbar spine pathology. Acute fractures of the T11 and 12 vertebral bodies. Mechanical Fall: Closed right hip fracture: Right anterior ninth and 10th rib fracture: c/w pain Mx. Came in with fall/right hip pain. See imaging above. Orthopedics evaluated, nonoperative management with toe-touch weightbearing and no active hip abduction. Follow up on outpatient in 10 to 14 days. PT/OT ordered Pain management, bowel regimen. Send vitamin D level. last dose of apixaban taken 5/6 AM, hold for tnow Acute on chronic anemia: Baseline hemoglobin around 11-12, admitting hemoglobin of 10.6, hemoglobin today8.4. Likely secondary to blood loss secondary to hip fracture. Monitor H&H closely. 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 Patient does not have decision-making capacity regarding pacemaker placement because of limited orientation and inability to understand treatment information. Monitor on tele.Appreciate cardiology input T11 and 12 vertebral body fracture: See imaging above. Patient reports pain under control. [facility] consulted and seen by 11/16/2023; recommended to the patient he do utilize his brace and try to utilize good posture no bending lifting twisting; follow-up in the office in the next 2 weeks for additional radiographs at the thoracolumbar junction AP and lateral views. 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 some drop from his baseline. Nephro on board,on oral urea. Coronary artery disease: s/p CABG in the past, chronic, stable. Denies any active chest pain or SOB in the past 6 months. Cont medical management . History of coronary artery bypass graft: CABG in May 2014 Paroxysmal atrial fibrillation: chronic, on AC and toprol XL. Patient is currently in NSR. Eliquis - see above. Other chronic medical conditions: Hypertension/aortic stenosis/T2DM - continue with/resume home meds as and when able. DVT prophylaxis: SCDs: Eliquis on hold Full code Dispo: PT/OT eval; possibly will need rehab Time spent evaluating patient, direct bedside care, chart review, placing orders, interpretation of diagnostic studies, discussion with consultants, patient, and family members, as well as other required patient management a ctivities is 50 minutes Please note the above document was generated using voice recognition software. It may contain grammatical, syntax or spelling errors. Any formal questions or concerns about the content, text or information contained within the body of this dictation should be directly addressed to the provider for clarification Admission and Anticipated Discharge Date Admission Date: November 14, 2023 Subjective Patient seen and examined at bedside. His son is also at bedside. Patient reports pain in right hip. No overnight events Review of Systems Review of Systems: All systems reviewed & are unremarkable except as noted in Subjective Physical Exam Physical Exam: Constitutional: Alert, oriented to self, place. Respiratory: normal respiratory effort, lungs clear to auscultation, no wheeze, rales, rhonchi. Normal insp/exp effort, no accessory muscle use Cardiovascular: RRR, no murmur, no edema Vessels: no JVD or carotid bruit Chest: normal inspection of chest Abdomen: normal bowel sounds, soft, nontender, no hepatosplenomegaly Musculoskeletal: Tenderness in the lateral aspect of right hip. Pain full ROM Neurologic: PERRL, EOMI, accommodation nl, no face palsy, no dysarthria CN's II- XI intact bilaterally and moves all extremities Psychiatric: A+Ox3, euthymic affect Results & Data Results & Data Vital Signs (Past 12 Hours) Vital Signs Temp Pulse Resp BP Pulse Ox O2 Del Method 11/16/23 14:17 36.5 C 65 14 103/68 99 Room Air 11/16/23 14:16 65 18 103/68 99 Room Air 11/16/23 11:30 36.6 C 62 18 122/64 97 Room Air 11/16/23 07:20 36.4 C L 80 18 131/77 98 Room Air
--- NOTE | 2023-11-16 16:11 | XRay Report ---
XR chest 1V portable CLINICAL HISTORY: s/p pacemaker insertion COMPARISON STUDY: Chest radiograph and chest CT November 14, 2023. FINDINGS: There is no pneumothorax following placement of a dual-lead left subclavian pacer. Lead tip s project over the right atrial appendage and right ventricle. There are median sternotomy wires and mediastinal surgical clips. Cardiomegaly is again noted. Subtle interstitial thickening is unchanged. There is no consolidation. IMPRESSION: No pneumothorax following placement of a dual-lead left subclavian pacemaker. ACT 112: Negative or not required by law. Electronically signed by: Sunday Jeffries M.D. 11/16/2023 4:09 PM
[2023-11-16] MEDS: MIDAZOLAM HCL 5 MG/ML 1 ML VIAL ONE (16:58)
[2023-11-16] MEDS: fentaNYL citrate PF 100 MCG/2 ML VIAL ONE (16:58)
[2023-11-16 18:11] LABS: BUN Creatinine Ratio 44.6 (10-20); Calcium 8.8 mg/dl (8.6-10.3); Creatinine Clr Calc Pharmacy 72.2 ml/min; Est GFR (African American) 92.3 ml/min; Est GFR (Non-African American) 79.7 ml/min; Potassium 4.5 mmol/L (3.5-5.1)
--- NOTE | 2023-11-17 06:03 | Electrocardiogram Report ---
Test Reason : Blood Pressure : / mmHG Vent. Rate : 066 BPM Atrial Rate : 066 BPM P-R Int : 282 ms QRS Dur : 094 ms QT Int : 468 ms P-R-T Axes : 084 070 203 degrees QTc Int : 490 ms Sinus rhythm with 1st degree A-V block Possible Anterior infarct (cited on or before 14-NOV-2023) T wave abnormality, consider inferolateral ischemia Prolonged QT Abnormal ECG When compared with ECG of 14-NOV-2023 18:34, Premature supraventricular complexes are no longer Present T wave inversion now evident in Inferior leads Confirmed by Mervin Last ([id number]) on 11/17/2023 6:03:15 AM Referred By: REFERRED SELF Confirmed By:Mervin Last
--- NOTE | 2023-11-17 08:02 | XRay Report ---
SINGLE VIEW CHEST CLINICAL HISTORY: Assess for pneumothorax status post pacemaker adjustment FINDINGS: An AP, portable, upright chest radiograph is compared to study dated 11/16/2023 and correlate d with chest CT dated 11/14/2023. The patient is status post midline sternotomy. A 2-lead cardiac pacem heather is unchanged in position. The heart is enlarged noting atherosclerotic calcification of the thor acic aorta. The pulmonary vasculature is noncongested. Airspace opacities at the left lung base likel y represents atelectasis. No large pleural effusion or pneumothorax is seen. The skeletal structures are osteopenic. The bony thorax is grossly intact. Arthritic change is seen in the shoulders. IMPRESSION: 1. No pneumothorax is seen post procedure. 2. Cardiomegaly and cardiac pacemaker without radiographic evidence of congestive failure. 3. Left basilar opacities are nonspecific and likely represent atelectasis. Correlate clinically for evidence of a mild pneumonitis. ACT 112: Negative or not required by law. Electronically signed by: Yovani Goff M.D. 11/17/2023 8:00 AM
[2023-11-17] MEDS: oxyCODONE HCL IR 5 MG TAB (IMMEDIATE RELEASE) PO PRN (08:48)
--- NOTE | 2023-11-17 09:38 | Cardiology Progress Note ---
Date of Service November 17, 2023 Assessment & Plan (1) Ground-level fall: (2) Preop cardiovascular exam: (3) Acute hyponatremia: (4) Tachy-santy syndrome: (5) Paroxysmal atrial fibrillation: (6) ASCVD (arteriosclerotic cardiovascular disease): (7) Aortic stenosis: Plan Complex 88-year-old male with ASCVD, moderate to severe aortic stenosis, chronic hyponatremia/SIADH admitted following a ground-level mechanical fall with resultant closed right hip fracture, acute fractures of the T11 and T12 vertebral bodies, and possibly mildly displaced fractures of the right anterior ninth and 10th ribs. Cardiology consultation requested for preoperative clearance; orthopedic injur ies managed conservatively. Patient status post November 16, 2023 permanent pacemaker implantation by Dr. Cornell for Tachy-Santy Syndrome, paroxysmal atrial fibrillation/flutter. Post procedure chest x-rays without pneumothorax. Telemetry benign. Limited resting echocardiography requested given complaints post pacemaker (discomfort appears incisional, examination benign). Eliquis remains on hold. Admission and Anticipated Discharge Date Admission Date: November 14, 2023 Supervising Physician Co-Signing Physician Notes Patient was seen and personally examined. Full assessment and plan as outlined above by advanced provider. Care, management discussed with advanced provider and endorsed personally Complex 88-year-old male suffered a mechanical fall with injuries as noted above. Underlying significant bradycardia and underwent dual-chamber pacemaker as originally planned Patient tolerated procedure though still with mild underlying dementia and agitation. Pacemaker site healing well and device functioning normally Echocardiogram today demonstrates no evidence of pericardial effusion with ejection fraction 45 to 50% mild septal dyssynergy No signs of volume overload rate or heart failure though remains at risk for such will need to follow depending on oral intake and volume administered Goal treatment of underlying other medication and orthopedic injury I spent a total of 20 minutes on the date of service in preparation, delivery, and documentation of the care provided to this patient excluding any time spent in the performance of separately billed services. 11/16/23 13:25 Elie Ramirez MD Subjective Patient seen and examined. Chart, medications, telemetry reviewed. Son at bedside. Patient complains of incisional (left subclavian) chest pain, diffuse chest pain, some breathing difficulty. SpO2 98% on room air. + Nausea. Telemetry: Paced, 60-80 bpm. Review of Systems Review of Systems: Complete review of systems is otherwise as stated above, negative, or noncontributory. Physical Exam Physical Exam: General: + Pallor HENT: Normocephalic. Atraumatic. Eyes: PER. Conjunctiva pink, sclera clear. Neck: Bilateral carotid bruits. No JVD. Chest: Left subclavian pacer dressing is clean, dry, and intact. No significant surrounding hematoma or erythema. Heart: RRR, 80 bpm. No rub. Grade II/ systolic ejection murmur. No diastolic murmur. Lungs: Clear to auscultation anterolaterally. Abdomen: +BS. Soft. Nontender. No masses or organomegaly. Extremities: Mild edema. No clubbing. No cyanosis Limited neurological examination is without focal deficits. Pulses: radial=2/4, posterior tibial=0/4 on the right and 1/4 on the left Results & Data Vital Signs (Past 12 Hours) Vital Signs Temp Pulse Pulse Pulse Resp BP Pulse Ox 11/17/23 08:00 60 11/17/23 07:48 36.5 C 60 18 130/74 98 11/17/23 03:00 36.3 C L 65 18 151/66 H 97 11/16/23 22:42 36.6 C 64 16 125/67 97 11/16/23 22:03 78 O2 Del Method 11/17/23 08:00 11/17/23 07:48 Room Air 11/17/23 03:00 Room Air 11/16/23 22:42 Room Air 11/16/23 22:03 Laboratory Results Comprehensive Metabolic Panel 11/16/23 Range/Units 17:36 Sodium 124 L (136-145) mmol/L Potassium 4.5 (3.5-5.1) mmol/L Chloride 93 L (98-107) mmol/L Carbon Dioxide 23 (21-32) mmol/L BUN 37 H (6-23) mg/dl Creatinine 0.83 (0.6-1.4) mg/dl Glucose 164 H (70-99(Fasting)) mg/dl Calcium 8.8 (8.6-10.3) mg/dl Intake and Output 11/16/23 11/17/23 11/17/23 22:59 06:59 14:59 Intake Total 200 / 1050 400 / 1050 Output Total 750 / 2300 750 / 2300 Balance -550 / -1250 -350 / -1250 Intake: Oral 200 / 1050 400 / 1050 Output: Urine Amount (Catheter) 750 / 2300 750 / 2300 Olivo/Indwelling 750 / 2300 750 / 2300
--- NOTE | 2023-11-17 11:24 | Nephrology Progress Note ---
Date of Service November 17, 2023 Assessment & Plan (1) SIADH (syndrome of inappropriate ADH production): Plan: hx of SIADH w/ baseline sNa as OP high 120s/low 130s, in part d/t nonadherence. euvolemic on evaluation. no need to repeat urine studies/ serum osms as this has been a longstanding/conssistent dx. -upper limit sNa for tomorrow is no more than 131 >>we did not have bmp this am and so ordered -cont FR 1.2L, toward which protein shakes do not count -strict I/O -avoid nsaids in pain control -control pain which can increase ADH release -will recheck bmp now and would check bid while sNa <127 > f/u labs from this am >started 11/15 lasix 10 mg IV daily > will stop given lower Na >cont urea 15 gm bid started 11/14 (2) Compression fracture of T12 vertebra: Plan: per primary service and ortho; Admission and Anticipated Discharge Date Admission Date: November 14, 2023 Subjective got pacer yesterday; feels "off" today; with no sob, no uncontrolled pain; some tingling in legs/fingers Review of Systems 2 Review of Systems: All systems reviewed & are unremarkable except as noted in Subjective Physical Exam 2 Constitutional: well developed, well nourished, + frail appearing and cooperative; no acute distress Eyes: EOM intact bilaterally ENMT: Ears: no external ear abnormality Nose: no external nose abnormality Mouth: + dry oral mucous membranes Neck: no nuchal rigidity Respiratory: normal respiratory effort Auscultation: + diminished lung sounds and + crackles Cardiovascular: Rate/Rhythm: regular rate and regular rhythm Heart Sounds: + murmur Extremities: no edema Gastrointestinal (Abdomen): Inspection/Auscultation: normal bowel sounds P ercussion/Palpation: abdomen soft; abdomen nontender Musculoskeletal: Extremities: strength 5/5 throughout Skin: no rashes, warm and dry Psychiatric: Orientation: oriented to person (unreliable historian), oriented to place and cooperative Results & Data Vital Signs (Past 12 Hours) Vital Signs Temp Pulse Pulse Pulse Resp BP Pulse Ox 11/17/23 08:00 60 11/17/23 07:48 36.5 C 60 18 130/74 98 11/17/23 03:00 36.3 C L 65 18 151/66 H 97 O2 Del Method 11/17/23 08:00 11/17/23 07:48 Room Air 11/17/23 03:00 Room Air Laboratory Results 11/16/23 07:32 11/17/23 11:34 11/16/23 07:32 11/16/23 17:36 Diagnostic Findings cxr 1. No pneumothorax is seen post procedure. 2. Cardiomegaly and cardiac pacemaker without radiographic evidence of congestive failure. 3. Left basilar opacities are nonspecific and likely represent atelectasis. Correlate clinically for evidence of a mild pneumonitis.
[2023-11-17] MEDS: POLYETHYLENE (MIRALAX) 17 GM PACK PO SCH (12:02)
[2023-11-17 12:22] LABS: Calcium 8.1 mg/dl (8.6-10.3); Potassium 4.5 mmol/L (3.5-5.1)
[2023-11-17 12:27] LABS: Creatinine Clr Calc Pharmacy 71.3 ml/min; Est GFR (African American) 91.9 ml/min; Est GFR (Non-African American) 79.3 ml/min
--- NOTE | 2023-11-17 15:18 | Hospitalist Progress Note ---
Date of Service November 17, 2023 Assessment & Plan (1) Ground-level fall: Plan 88-year-old male who presented with right hip pain after mechanical fall at home is being managed for the following: Admitting labs: Hemoglobin 10.6 [baseline around 11-12],sodium 123 [baseline around 1 25-1 27], UA negative for UTI. Admitting imagings: Hip x-ray: Acute mildly comminuted intertrochanteric fracture. CXR: No acute chest disease. CT chest: Acute fracture of T11 and 12 vertebral bodies with 32% and 17% loss of vertebral body height respectively. Possible mildly displaced fracture of the right anterior ninth and 10th ribs. Lumbar spine CT: No evidence of acute lumbar spine pathology. Acute fractures of the T11 and 12 vertebral bodies. Mechanical Fall: Closed right hip fracture: Right anterior ninth and 10th rib fracture: c/w pain Mx. Came in with fall/right hip pain. See imaging above. Orthopedics evaluated, nonoperative management with toe-touch weightbearing and no active hip abduction. Follow up on outpatient in 10 to 14 days. PT/OT ordered Pain management, bowel regimen. Send vitamin D level. last dose of apixaban taken 5/6 AM, hold for now Acute on chronic anemia: Baseline hemoglobin around 11-12, admitting hemoglobin of 10.6, hemoglobin today8.4. Likely secondary to blood loss secondary to hip fracture. Monitor H&H closely. 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 Patient does not have decision-making capacity regarding pacemaker placement because of limited orientation and inability to understand treatment information. Monitor on tele.Appreciate cardiology input T11 and 12 vertebral body fracture: See imaging above. Patient reports pain under control. [facility] consulted and seen by 11/16/2023; recommended to the patient he do utilize his brace and try to utilize good posture no bending lifting twisting; follow-up in the office in the next 2 weeks for additional radiographs at the thoracolumbar junction AP and lateral views. 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 some drop from his baseline. Nephro on board,on oral urea and iv lasix Coronary artery disease: s/p CABG in the past, chronic, stable. Denies any active chest pain or SOB in the past 6 months. Cont medical management . History of coronary artery bypass graft: CABG in May 2014 Paroxysmal atrial fibrillation: chronic, on AC and toprol XL. Patient is currently in NSR. Eliquis - see above. Other chronic medical conditions: Hypertension/aortic stenosis/T2DM - continue with/resume home meds as and when able. DVT prophylaxis: SCDs: Eliquis on hold Full code Dispo: PT/OT eval;will need rehab. CM on board Discussed plan of care with patient's son at bedside. Answered questions/queries Time spent evaluating patient, direct bedside care, chart review, placing orders, interpretation of diagnostic studies, discussion with consultants, patient, and family members, as well as other required patient management activities is 50 minutes Please note the above document was generated using voice recognition software. It may contain grammatical, syntax or spelling errors. Any formal questions or concerns about the content, text or information contained within the body of this dictation should be directly addressed to the provider for clarification Admission and Anticipated Discharge Date Admission Date: November 14, 2023 Subjective Patient seen and examined at bedside. He is comfortably lying in the bed; reports pain on his chest at the pacemaker insertion site No significant events overnight Review of Systems Review of Systems: All systems reviewed & are unremarkable except as noted in Subjective Physical Exam Physical Exam: Constitutional: Alert, oriented to self, place. Respiratory: normal respiratory effort, lungs clear to auscultation, no wheeze, rales, rhonchi. Normal insp/exp effort, no accessory muscle use Cardiovascular: RRR, no murmur, no edema Vessels: no JVD or carotid bruit Chest: normal inspection of chest.Pacemaker site with bandage. C/D/I Abdomen: normal bowel sounds, soft, nontender, no hepatosplenomegaly Musculoskeletal: Tenderness in the lateral aspect of right hip. Pain full ROM Neurologic: PERRL, EOMI, accommodation nl, no face palsy, no dysarthria CN's II- XI intact bilaterally and moves all extremities Psychiatric: A+Ox3, euthymic affect Results & Data Results & Data Vital Signs (Past 12 Hours) Vital Signs Temp Pulse Pulse Resp BP Pulse Ox O2 Del Method 11/17/23 11:37 36.7 C 79 18 113/68 97 Room Air 05/09/24 09:00 Room Air 11/17/23 08:00 60 11/17/23 07:48 36.5 C 60 18 130/74 98 Room Air
[2023-11-18 08:52] LABS: BUN Creatinine Ratio 46.6 (10-20); Calcium 8.8 mg/dl (8.6-10.3); Creatinine Clr Calc Pharmacy 68.1 ml/min; Est GFR (African American) 90.1 ml/min; Est GFR (Non-African American) 77.8 ml/min; Potassium 4.6 mmol/L (3.5-5.1)
--- NOTE | 2023-11-18 09:51 | Cardiology Progress Note ---
Date of Service November 18, 2023 Assessment & Plan (1) Ground-level fall: (2) Preop cardiovascular exam: (3) Acute hyponatremia: (4) Tachy-santy syndrome: (5) Paroxysmal atrial fibrillation: (6) ASCVD (arteriosclerotic cardiovascular disease): (7) Aortic stenosis: Plan Complex 88-year-old male with ASCVD, moderate to severe aortic stenosis, chronic hyponatremia/SIADH admitted following a ground-level mechanical fall with resultant closed right hip fracture, acute fractures of the T11 and T12 vertebral bodies, and possibly mildly displaced fractures of the right anterior ninth and 10th ribs. Cardiology consultation requested for preoperative clearance; orthopedic injuries managed conservatively. Patient status post November 16, 2023 permanent pacemaker implantation by Dr. Cornell for Tachy-Santy Syndrome, paroxysmal atrial fibrillation/flutter, without post implantation cardiopulmonary complications. Resume Eliquis when able. Please contact with any questions or concerns. Admission and Anticipated Discharge Date Admission Date: November 14, 2023 Supervising Physician Co-Signing Physician Notes Patient was seen and personally examined. Full assessment and plan as outlined above by advanced provider. Care, management discussed with advanced provider and endorsed personally Complex 88-year-old male suffered a mechanical fall with injuries as noted above. Underlying significant bradycardia and underwent dual-chamber pacemaker as originally planned Device functioning normally. Incision site healing well No acute cardiac concerns Will continue to hold apixaban until gait stability assured I spent a total of 20 minutes on the date of service in preparation, delivery, and documentation of the care provided to this patient excluding any time spent in the performance of separately billed services. 11/16/23 13:25 Elie Ramirez MD Subjective Patient seen and examined. Chart, medications, telemetry reviewed. Son at bedside. Incisional chest pain. No pleuritic chest pain. No shortness of breath. No palpitations. Telemetry: Paced, 60's and 70's. Review of Systems Review of Systems: Complete review of systems is otherwise as stated above, negative, or noncontributory. Physical Exam Physical Exam: General: NAD. HENT: Normocephalic. Atraumatic. Eyes: PER. Conjunctiva pink, sclera clear. Neck: Bilateral carotid bruits. No JVD. Chest: Left subclavian pacer dressing is clean, dry, and intact. No significant surrounding hematoma or erythema. Heart: RRR, 70 bpm. No rub. Grade II/ systolic ejection murmur. No diastolic murmur. Lungs: Clear to auscultation anteriorly. Abdomen: +BS. Soft. Nontender. No masses or organomegaly. Extremities: Mild edema. No clubbing. No cyanosis Limited neurological examination is without focal deficits. Pulses: radial=2/4, posterior tibial=0/4 on the right and 1/4 on the left Results & Data Vital Signs (Past 12 Hours) Vital Signs Temp Pulse Pulse Resp BP Pulse Ox O2 Del Method 11/18/23 08:12 74 18 128/67 11/18/23 03:24 36.9 C 72 18 155/87 H 98 Room Air 11/17/23 23:00 69 11/17/23 22:14 36.8 C 75 18 138/77 98 Room Air Laboratory Results Comprehensive Metabolic Panel 11/17/23 11/18/23 Range/Units 11:34 07:11 Sodium 123 L 128 L (136-145) mmol/L Potassium 4.5 4.6 (3.5-5.1) mmol/L Chloride 92 L 95 L (98-107) mmol/L Carbon Dioxide 24 26 (21-32) mmol/L BUN 42 H 41 H (6-23) mg/dl Creatinine 0.84 0.88 (0.6-1.4) mg/dl Glucose 209 H 124 H (70-99(Fasting)) mg/dl Calcium 8.1 L 8.8 (8.6-10.3) mg/dl Intake and Output 11/17/23 11/18/23 11/18/23 22:59 06:59 14:59 Intake Total 720 / 1695 125 / 1695 Output Total 1050 / 4000 1550 / 4000 Balance -330 / -2305 -1425 / -2305 Intake: Oral 720 / 1695 125 / 1695 Output: Urine 950 / 2500 1550 / 2500 Urine Amount (Catheter) 100 / 1500 Olivo/Indwelling 100 / 1500
[2023-11-18] MEDS: COUGH DROP (SUGAR FREE) LOZ 24 LOZ/1 BOX BUCCAL PRN (11:06)
[2023-11-18] MEDS: APIXABAN 5 MG TABLET PO SCH (11:07)
--- NOTE | 2023-11-18 12:28 | Nephrology Progress Note ---
Date of Service November 18, 2023 Assessment & Plan (1) SIADH (syndrome of inappropriate ADH production): Plan: hx of SIADH w/ baseline sNa as OP high 120s/low 130s, in part d/t nonadherence. euvolemic on evaluation. no need to repeat urine studies/ serum osms as this has been a longstanding/conssistent dx. -upper limit sNa for tomorrow is no more than 134 >>daily BMP while in house -cont FR 1.2L, toward which protein shakes do not count -strict I/O -avoid nsaids in pain control -control pain which can increase ADH release >started 11/15 lasix 10 mg IV daily > will stop given lower Na >cont urea 15 gm bid started 11/14 >> needs urea now and at d/c WILL SIGN OFF -daily bmp while in house -resume customary lasix 40 mg daily and 20 mEq daily potassium at d/c -<2gm daily sodium diet and 1.8L fluid limit at hospital d/c -d/c on urea 15 gm bid -pls work w/ family to get urea >> can order it online [email or web address]; this is most affordable way to get medication; about $100/month for 15 gm bid dosing -recommend also aggressive protein intake > aim for 90 gm daily at d/c >> one portion GERMAN yogurt with 3 scoops of whey protein powder mixed in is close to 90 gm daily protein -hospital d/c appt with Dr Winter, 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, w/in 3-4 wks of d/c w/ kidney nurse to order bmp, serum osms, urine osms, urine electrolytes to be done up to 48 hrs before appt -check bmp at pcp f/u visit (2) Compression fracture of T12 vertebra: Plan: per primary service and ortho; Admission and Anticipated Discharge Date Admission Date: November 14, 2023 Physical Exam 2 Constitutional: well developed, well nourished, + frail appearing and cooperative; no acute distress Eyes: EOM intact bilaterally ENMT: Ears: no external ear abnormality Nose: no external nose abnormality Mouth: + dry oral mucous membranes Neck: no nuchal rigidity Respiratory: normal respiratory effort Auscultation: + diminished lung sounds and + crackles Cardiovascular: Rate/Rhythm: regular rate and regular rhythm Heart Sounds: + murmur Extremities: no edema Gastrointestinal (Abdomen): Inspection/Auscultation: normal bowel sounds P ercussion/Palpation: abdomen soft; abdomen nontender Musculoskeletal: Extremities: strength 5/5 throughout Skin: no rashes, warm and dry Psychiatric: Orientation: oriented to person (unreliable historian), oriented to place and cooperative Results & Data Vital Signs (Past 12 Hours) Vital Signs Temp Pulse Pulse Resp BP Pulse Ox O2 Del Method 11/18/23 10:59 36.5 C 70 18 119/63 97 Room Air 11/18/23 10:08 Room Air 11/18/23 10:07 60 11/18/23 08:12 74 18 128/67 11/18/23 03:24 36.9 C 72 18 155/87 H 98 Room Air Laboratory Results 11/16/23 07:32 11/18/23 07:11
[2023-11-18 14:55] LABS: Basophils # (auto) 0.03 K/uL (0.00-0.20); Basophils % (auto) 0.3 %; Eosinophils # (auto) 0.37 K/uL (0.00-0.50); Eosinophils % (auto) 4.3 %; Hematocrit (blood only) 23.9 % (42.0-52.0); Immature Granulocytes # (auto) 0.05 K/uL (0.01-0.20); Immature Granulocytes % (auto) 0.6 %; Lymphocytes # (auto) 1.59 K/uL (1.20-3.40); Lymphocytes % (auto) 18.4 %; Mean Corpuscular Hemoglobin 31.5 pg (25.0-34.0); Mean Corpuscular Hgb Conc 33.5 g/dL (32.0-36.0); Mean Corpuscular Volume 94.1 fL (80.0-100.0); Monocytes # (auto) 0.98 K/uL (0.11-0.59); Monocytes % (auto) 11.3 %; Neutrophils # (auto) 5.64 K/uL (1.40-6.50); Neutrophils % (auto) 65.1 %; Platelet Count 128 K/uL (130-400); RDW Coefficient of Variation 14.1 % (11.5-14.5); RDW Standard Deviation 48.6 fL (36.4-46.3); Red Blood Count 2.54 M/uL (4.70-6.10); White Blood Count 8.66 K/ul (4.8-10.8)
--- NOTE | 2023-11-18 16:06 | Discharge Summary ---
Date of Service November 18, 2023 Admission HPI Per Admitting Provider 88 yo M presents with right hip pain after a mechanical fall at home this morning. He is still having right hip pain now, feet are hurting, no chest pain or trouble breathing. Right back and side of chest wall are hurting. I was unable to get ahold of his by phone. He explained to me that his legs gave out on him when he was finishing using the toilet this morning. He did not lose consciousness or hit his head. He is having pain and holding his left chest wall and is reporting pain in his back that is worse. He denies chest pain, SOB, bleeding issues, fevers, chills, or any other symptoms at this time. Admission Exam Per Admitting Provider CONSTITUTIONAL: WNWD, vitals as above, generally well-appearing EYES: pupils are round and equal bilaterally, normal conjunctivae, no scleral icterus ENT: external ear and nose normal, oropharynx clear NECK: trachea midline RESPIRATORY: clear to auscultation bilaterally, no crackles, rales or wheezes, normal respiratory effort CARDIOVASCULAR: regular rate and rhythm, S1 and 2 heard without murmurs, gallops or rubs, no JVD, no peripheral edema CHEST: inspection of chest was normal GASTROINTESTINAL: soft, nontender,ND, no guarding MUSCULOSKELETAL: strength 5/5 throughout, head is normocephalic and atraumatic, +chest wall without tenderness lateral left SKIN: warm and dry, I was unable to examine sacrum 2/2 pain and immobility. NEUROLOGIC: No facial palsy, no dysarthria. CN 2-12 grossly intact, no sensory deficit, normal cognition, normal speech, no tremor PSYCHIATRIC: alert cooperative and oriented to person, place and time. Euthymic mood, makes good eye contact, language grossly intact, recent and remote memory grossly intact. 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 Respiratory: normal respiratory effort, lungs clear to auscultation, no wheeze, rales, rhonchi. Normal insp/exp effort, no accessory muscle use Cardiovascular: RRR, no murmur, no edema Vessels: no JVD or carotid bruit Chest: normal inspection of chest.Pacemaker site with bandage. C/D/I Abdomen: normal bowel sounds, soft, nontender, no hepatosplenomegaly Musculoskeletal: Tenderness in the lateral aspect of right hip. Pain full ROM Neurologic: PERRL, EOMI, accommodation nl, no face palsy, no dysarthria CN's II- XI intact bilaterally and moves all extremities Psychiatric: A+Ox3, euthymic affect Discharge Data Allergies Allergy/AdvReac Type Severity Reaction Status Date / Time bee venom protein (honey bee) Allergy Unknown swelling Verified 05/31/21 17:06 iodine Allergy Unknown DUE TO Verified 05/31/21 17:06 SHELLFISH ALLERGY-IODINATED DYE-UNKNOWN morphine Allergy Unknown stopped Verified 05/31/21 17:06 breathing Penicillins Allergy Unknown RASH Verified 05/31/21 17:06 shellfish derived Allergy Unknown ANAPHYLAXIS Verified 05/31/21 17:06 Consultations 11/14/23 21:08 Consult Nephrology Routine 11/14/23 21:23 Consult Anesthesiology Routine Consult Cardiology Routine Consult Orthopedic Surgery Routine 11/14/23 22:24 Consult Orthopedic Spine Surgery Routine 11/16/23 09:41 Consult Psychiatry Routine Procedures Performed Operation Date: 11/16/23 13:30 Actual Procedures p Pacer with A/V Leads (Dual) - DO linda Ortiz Bundle of his Recording - DO linda Ortiz Venogram, Unilateral - Melyssa Cornell DO Ordered Studies 11/14/23 20:29 CT chest diagnostic wo con Urgent CT lumbar spine wo con Urgent 11/16/23 14:15 EP Lab Images for PACS ONCE Hospital Course (1) Ground-level fall: Plan 88-year-old male who presented with right hip pain after mechanical fall at home and was managed for the following: Admitting labs: Hemoglobin 10.6 [baseline around 11-12],sodium 123 [baseline around 1 25-1 27], UA negative for UTI. Admitting imagings: Hip x-ray: Acute mildly comminuted intertrochanteric fracture. CXR: No acute chest disease. CT chest: Acute fracture of T11 and 12 vertebral bodies with 32% and 17% loss of vertebral body height respectively. Possible mildly displaced fracture of the right anterior ninth and 10th ribs. Lumbar spine CT: No evidence of acute lumbar spine pathology. Acute fractures of the T11 and 12 vertebral bodies. Mechanical Fall: Closed right hip fracture: Right anterior ninth and 10th rib fracture: c/w pain Mx. Came in with fall/right hip pain. See imaging above. Orthopedics evaluated, nonoperative management with toe-touch weightbearing and no active hip abduction. Follow up on outpatient in 10 to 14 days. Pain management, bowel regimen. PT OT evaluation was done; recommended acute rehab. [facility] Acute on chronic anemia: Baseline hemoglobin around 11-12, admitting hemoglobin of 10.6, Hemoglobin is stabilized around 8. Likely secondary to blood loss secondary to hip fracture. 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 Patient reports pain under control. Orthospine consulted and seen by 11/16/2023; recommended to the patient he do utilize his brace and try to utilize good posture no bending lifting twisting; follow-up in the office in the next 2 weeks for additional radiographs at the thoracolumbar junction AP and lateral views. Patient has multiple medical condition that includes right hip fracture, rib fracture, vertebral fracture, recent pacemaker placement. He can't bear weight on his right leg and has limited use of his left arm due to hip fracture and pacemaker placement respectively. I discussed with patient's and son at bedside on the day of the discharge that he has high risks of pneumonia, constipation, UTI, sacral wounds and repeated falls. . They verbalized understanding and understood risks. They are in agreement with plan of getting him to rehab and seeing how he does. The eventual goal is to get him back home. Please note the above document was generated using voice recognition software. It may contain grammatical, syntax or spelling errors. 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 T11 and 12 vertebral body fracture: Activity: As commented below Activity Comment: do not raise the left elbow over the left shoulder for 1 month Lifting: No more than 10 pounds Lifting Comment: do not lift more than 10 pounds with the left arm for 2 weeks Bathing: Keep incision dry Bathing Comment: keep dresssing on & dry until wound check next week Non-emergency contact: Primary Care Provider Call non-emergency contact if: you have any medication questions and your symptoms worsen Follow-up/Referrals: Angelo Vazquez MD [Primary Care Provider] - Diet: Regular Fluids: 1800ml (7 cups) Addtl Attending Provider Instructions: You were admitted to the hospital after a fall. You were managed for following problems during the hospitalization Right hip fracture You were seen by Dr. Viet Henderson [place] [facility] He recommends none weightbearing on right lower extremity with no active hip abduction He recommends follow-up with him as outpatient in 10 to 14 days T11 and 12 vertebral body fracture You were seen by orthospine( Dr. Camp) during the hospitalization. He recommends to utilize brace and try to utilize good posture with no bending, lifting and twisting. Follow-up in his office in 2 weeks with an additional radiograph of thoracolumbar junction AP and lateral view Tachybradycardia syndrome status post pacemaker placement Follow-up at [facility] cardiology next week for device and wound check Hyponatremia You are seen by Dr. Barger from nephrology. She recommended you to be on oral urea 15 g twice daily. Follow-up with Dr. Winter as outpatient She recommends less than 2 g daily sodium diet and 1.8 L fluid restriction Pending Studies at Discharge: No Stand-Alone Forms: [employer], Smoking Cessation Medications and DC Order Prescriptions: New acetaminophen [Tylenol Extra Strength] 500 mg Tablet 500 mg PO Q8H Qty: 30 0RF oxycodone 5 mg Tablet 5 mg PO Q8H PRN (Reason: pain) Qty: 10 0RF diclofenac sodium [Voltaren Arthritis Pain] 1 % Gel 2 g EXT Q6H PRN (Reason: pain) Qty: 100 0RF polyethylene glycol 3350 [Miralax] 17 gram Powder In Packet 17 g PO DAILY Qty: 30 0RF Ure-Na 15 gram Powder In Packet 15 g PO BID Qty: 8 0RF ferrous sulfate [iron] 325 mg (65 mg iron) tablet 325 mg PO DAILY Qty: 30 0RF Continued metformin 500 mg Tablet 500 mg PO QAM atorvastatin 80 mg Tablet 80 mg PO HS aspirin 81 mg Tablet,Delayed Release (Dr/Ec) 81 mg PO QAM pantoprazole 40 mg Tablet,Delayed Release (Dr/Ec) 40 mg PO QAM nitroglycerin 0.4 mg tablet, sublingual 0.4 mg sublingual Q5M PRN (Reason: Chest Pain) levothyroxine 50 mcg tablet 50 mcg PO DAILYBB metoprolol succinate 25 mg tablet extended release 24 hr 25 mg PO DAILY finasteride 5 mg tablet 5 mg PO QAM Vitron-C 65 mg iron- 125 mg Tablet,Delayed Release (Dr/Ec) 1 tab PO QAM potassium chloride 20 mEq tablet extended release 20 meq PO DAILY Qty: 30 0RF Eliquis 5 mg tablet 5 mg PO Q12H Qty: 60 0RF Rx Instructions: First dose to start 12/02/22 in a.m. cyanocobalamin (vitamin B-12) [Vitamin B-12] 1,000 mcg Tablet 1,000 mcg PO DAILY acetaminophen [Tylenol 8 Hour] 650 mg Tablet Extended Release 1,300 mg PO Q12H PRN (Reason: Pain) escitalopram oxalate 10 mg tablet 10 mg PO QAM folic acid 1 mg tablet 1 mg PO DAILY furosemide [Lasix] 40 mg tablet 40 mg PO DAILY Discharge Orders: Discharge Order (Routine); Ordered 11/18/23 Ordered By: Jose Angel Hayes Admission Data Admit Date/Time: 11/14/23 19:41 Attending Provider: Jose Angel Hayes Admit Provider: Kayla Bhakta Primary Care Provider: Angelo Vazquez Other Providers: Earl Covarrubias; Martin Velazquez; Elie Ramirez; Viet Henderson; Duc Camp; Amara Valderrama; Matthew Nelson; Marco Braga Jr; Janae Pan; Kecia Mancuso; Emmanuel Donald; [facility]
--- NOTE | 2023-11-18 18:06 | Nephrology Progress Note ---
Date of Service November 18, 2023 Assessment & Plan (1) SIADH (syndrome of inappropriate ADH production): Plan: longstanding SIADH usually in high 120s as OP x years. Follows w/ Dr Winter as OP. Has been challenging as OP to get him to adhere to FR. -continue urea -continue FR 1.8L >changed IV lasix low dose to customary OP po lasix/K dosing at baseline or near it x several days; will sign off NEPHRO D/C RECS: -urea 15 gm bid; costs about $100 monthly out of pocket at best / usually not covered by insurance > recommend family get this online [email or web address] -also recommend target 90 gm daily protein intake>> 1 serving BULGARIAN yogurt plus 3 scoops whey protein powder daily -d/c on customary lasix, potassium doses from prior to admission -continue low sodium diet -avoid nsaids in pain control -continue 1.8L FR -check bmp at PCP f/u visit -hospital d/c visit w/ Dr Winter in [facility] in 2-4 wks after d/c with renal nurse to order bmp, serum and urine osms, urine electrolytes to be done no more than 48 hrs before visit Care coordinated w/ Dr Hayes regarding protein, sodium, fluid intake targets, f/u labs, diuretic dosing and we are in agreement. Reviewed above plan w/ who was appreciative. (2) Compression fracture of T12 vertebra: Plan: per primary service Admission and Anticipated Discharge Date Admission Date: November 14, 2023 Subjective seen on midday rounds. eating heartily. family at bedside. no n/v, no sob. Review of Systems 2 Review of Systems: All systems reviewed & are unremarkable except as noted in Subjective Physical Exam 2 Constitutional: well developed and well nourished Eyes: EOM intact bilaterally ENMT: Ears: no external ear abnormality Nose: no external nose abnormality Mouth: + dry oral mucous membranes and + poor dentition Neck: no nuchal rigidity Respiratory: normal respiratory effort Auscultation: + diminished lung sounds Cardiovascular: RRR, no murmur, no edema pacer pocket w/o redness, induration Gastrointestinal (Abdomen): Inspection/Auscultation: normal bowel sounds P ercussion/Palpation: abdomen soft; abdomen nontender Musculoskeletal: Extremities: strength 5/5 throughout Skin: no rashes, warm and dry Neurologic: littlejohn, fluent speech, no tremor Psychiatric: Orientation: oriented to person and oriented to place Results & Data Vital Signs (Past 12 Hours) Vital Signs Temp Pulse Pulse Pulse Resp BP BP 11/18/23 16:11 36.5 C 60 65 16 139/77 100/59 L 11/18/23 15:29 84 11/18/23 15:15 60 16 100/59 L 11/18/23 10:59 36.5 C 70 18 119/63 11/18/23 10:08 11/18/23 10:07 60 11/18/23 08:12 74 18 128/67 Pulse Ox O2 Del Method 11/18/23 16:11 98 11/18/23 15:29 11/18/23 15:15 98 Room Air 11/18/23 10:59 97 Room Air 11/18/23 10:08 Room Air 11/18/23 10:07 11/18/23 08:12 Laboratory Results 11/18/23 14:38 11/18/23 07:11
--- NOTE | 2023-11-18 20:34 | Electrocardiogram Report ---
Test Reason : Blood Pressure : / mmHG Vent. Rate : 066 BPM Atrial Rate : 066 BPM P-R Int : 286 ms QRS Dur : 088 ms QT Int : 460 ms P-R-T Axes : 065 060 143 degrees QTc Int : 482 ms Sinus rhythm with 1st degree A-V block with Premature atrial complexes Cannot rule out Anterior infarct (cited on or before 14-NOV-2023) T wave abnormality, consider lateral ischemia Abnormal ECG When compared with ECG of 15-NOV-2023 07:39, Premature atrial complexes are now Present Nonspecific T wave abnormality has replaced inverted T waves in Inferior leads Confirmed by Mervin Last ([id number]) on 11/18/2023 8:33:46 PM Referred By: REFERRED SELF Confirmed By:Mervin Last
--- NOTE | 2023-11-19 06:07 | Electrocardiogram Report ---
Test Reason : Blood Pressure : / mmHG Vent. Rate : 070 BPM Atrial Rate : 070 BPM P-R Int : 176 ms QRS Dur : 146 ms QT Int : 488 ms P-R-T Axes : 071 137 112 degrees QTc Int : 527 ms Atrial-sensed ventricular-paced rhythm Abnormal ECG When compared with ECG of 16-NOV-2023 13:25, Ventricular pacing is now present Confirmed by Mervin Last ([id number]) on 11/19/2023 6:07:05 AM Referred By: REFERRED SELF Confirmed By:Mervin Last
[2023-11-19] MEDS ORDERED: FUROSEMIDE 40 MG TAB PO SCH (09:00)
[2023-11-19] MEDS ORDERED: POTASSIUM CHLORIDE CRTAB 20 MEQ TABCR PO SCH (09:00)
== END 2023-11-18 18:23 | DRG 982 ==
LOC: ED 16:32 → EDINP 19:41 → SUATTDRO 19:41 → 2N 21:24 → 2S 11-16 15:31

== ENCOUNTER 2023-12-13 13:40 | Inpatient (IN) ==
[2023-12-13 14:26] LABS: Basophils # (auto) 0.02 K/uL (0.00-0.20); Basophils % (auto) 0.3 %; Eosinophils # (auto) 0.03 K/uL (0.00-0.50); Eosinophils % (auto) 0.4 %; Hematocrit (blood only) 33.2 % (42.0-52.0); Hemoglobin 10.5 g/dl (14.0-18.0); Immature Granulocytes # (auto) 0.06 K/uL (0.01-0.20); Immature Granulocytes % (auto) 0.8 %; Lymphocytes # (auto) 0.67 K/uL (1.20-3.40); Mean Corpuscular Hemoglobin 32.3 pg (25.0-34.0); Mean Corpuscular Hgb Conc 31.6 g/dL (32.0-36.0); Mean Corpuscular Volume 102.2 fL (80.0-100.0); Mean Platelet Volume 9.9 fL (9.4-12.4); Monocytes # (auto) 0.84 K/uL (0.11-0.59); Monocytes % (auto) 11.3 %; Neutrophils # (auto) 5.83 K/uL (1.40-6.50); Neutrophils % (auto) 78.2 %; Platelet Count 119 K/uL (130-400); RDW Coefficient of Variation 17.1 % (11.5-14.5); Red Blood Count 3.25 M/uL (4.70-6.10); White Blood Count 7.45 K/ul (4.8-10.8)
--- NOTE | 2023-12-13 14:45 | Emergency Department Note ---
Impression & Plan SOB (shortness of breath), Anemia, Acute urinary retention, CHF (congestive heart failure), Edema, KARLENE (acute kidney injury), Elevated troponin ED Provider Note NAME: SOFIA PÉREZ Sr AGE: 88 SEX: M : 1935 ARRIVES VIA: Walk-In INFORMANT: [Patient][family] ED PROVIDER(S): [Yovani Fontaine MD] CHIEF COMPLAINT: Short of breath, swelling HISTORY OF PRESENT ILLNESS: The patient is an 88-year-old male who was in our hospital last month for a fall. He was found to have a hip fracture that was not operable. He had a pacemaker placed. He was discharged to [facility]. The patient left inpatient rehab yesterday. The family noticed some swelling of the testicles and legs at discharge. He has been quite short of breath since discharge and quite a bit weaker than baseline. He has become more confused and agitated. He has not urinated in about 12 hours. The family was concerned about his swelling and the lack of urination and his dyspnea, he was brought for evaluation. PMHx/PSHx/Social Hx: See Below PHYSICAL EXAM: GENERAL: Patient is in no acute distress. HEENT: No acute trauma, normocephalic atraumatic, mucous membranes moist, no nasal congestion. NECK: No stridor, no adenopathy, no meningismus, trachea is midline. LUNGS: Crackles bilaterally, especially on the left. No wheezing or respiratory distress. HEART: 3/6 systolic murmur, regular rate and rhythm. ABDOMEN: Soft, nontender, no peritonitis. EXTREMITIES: No cyanosis, full range of motion of all the joints without pain or difficulty. Significant bilateral pedal edema. NEUROLOGIC: Somewhat agitated, awake and alert, no acute motor or sensory deficits, no focal weakness. SKIN: No jaundice, no diaphoresis. Somewhat pale Groin: He has edema of his testicles and penis. DIFFERENTIAL DIAGNOSIS: Renal failure, urinary retention, electrolyte imbalance, anemia, CHF, DVT, UTI, among others. EMERGENCY DEPARTMENT PROCEDURES: Bladder scan showed around 500 cc, moderate retention. MEDICAL DECISION MAKING: There is no leukocytosis. The patient is anemic however, his value today is above his most recent testing. Platelet count slightly low, the patient carries a history of a lower platelet count. Sodium was low at 132 although, this is improved compared to some recent testing. There was some acute kidney injury with a creatinine of 1.77. Liver enzymes were elevated, likely consistent with fluid overload/congestion. BNP was quite high at over 4700 consistent with CHF and fluid overload. Chest x-ray does show cardiomegaly and some CHF. No findings of pancreatitis by our testing. Patient's TSH was slightly high however, the T4 was normal. ECG showed a ventricular pacemaker, no obvious ischemia. Cardiac enzyme testing x 1 is slightly elevated. This troponin elevation could be secondary to cardiac injury or just mismatch from his edema and dyspnea. Urinalysis did not show findings of infection. Bilateral lower extremity ultrasound is pending. The patient was retaining urine based on bladder scan. A Olivo catheter was placed and the retention was relieved. The patient is quite fluid overloaded. He appears to be in heart failure. He has some acute kidney injury. He was retaining urine and required a Olivo catheter. He has been increasingly dyspneic and increasingly edematous as per his family. Patient requires a hospital stay. He will require diuresis. He requires further cardiac monitoring. I spoke with the patient and his family, I spoke with case management, and the on-call hospitalist was consulted. Prior/Outside records/notes reviewed: Discharge summary note from 11/18/2023 discussing his hospitalization and care and then transferred to rehab. ECG per my interpretation: Indication was shortness of breath. The ECG shows a ventricular pacemaker. The rate is 64. There is no ST elevation, no PVCs. The QTc is 524. Continuous Cardiac Monitoring per my interpretation: An order was placed for continuous cardiac monitoring. The monitor shows a rate of 81 with ventricular pacing. Imaging/x-ray results per my interpretation: Chest x-ray shows cardiomegaly and some mild CHF. Chronic Medical/Social conditions affecting care: Advanced age. Recent inpatient rehab stay. Care/Management discussed with: Case management, the on-call hospitalist. Level of care consideration(s): After review of the information above and other included data: --I believe the patient requires escalation of care to admission DISPOSITION: Admission Past Med/Surg History Problem List (Updated 12/13/23 @ 16:18 by Yovani Fontaine MD) Elevated troponin (Acute) KARLENE (acute kidney injury) (Acute) Edema (Acute) CHF (congestive heart failure) (Acute) Acute urinary retention (Acute) Anemia (Acute) SOB (shortness of breath) (Acute) SIADH (syndrome of inappropriate ADH production) Ground-level fall Preop cardiovascular exam ASCVD (arteriosclerotic cardiovascular disease) DMII (diabetes mellitus, type 2) Aortic stenosis, moderate Tachy-santy syndrome Chronic anticoagulation Closed right hip fracture Compression fracture of T12 vertebra Compression fracture of lumbar vertebra Acute hyponatremia (Acute) Pulmonary edema (Acute) Aortic stenosis Acute on chronic heart failure with preserved ejection fraction (HFpEF) Labile blood pressure Chronic hyponatremia Acute confusion (Acute) Nausea (Acute) Diarrhea (Acute) Acute electrocardiogram changes (Acute) Hypomagnesemia (Acute) Acute hyponatremia (Acute) Hypokalemia (Acute) COVID-19 (Acute) History of carpal tunnel surgery "bilateral" 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; [facility]" S/P total hip arthroplasty S/P total knee arthroplasty Dyslipidemia Diabetes mellitus type 2 with complications Discharge planning issues DVT prophylaxis Chest pain Coronary artery disease Atypical chest pain (Acute) History of coronary artery bypass graft (Acute) Supratherapeutic INR (Acute) Anemia (Acute) Hypertension (Chronic) Paroxysmal atrial fibrillation (Chronic) Lumbar stenosis Medical History Dyslipidemia Coronary artery disease Gastroesophageal reflux disease Diabetes mellitus type 2, controlled Surgical History (Updated 12/13/23 @ 16:01 by Jenny Guillen PA-C) History of percutaneous coronary intervention S/P lumbar microdiscectomy H/O heart artery stent Family History Father Coronary heart disease Social History Smoking Status: Never smoker Second Hand Exposure: No; Do You Dip or Chew Tobacco: No; Hx Alcohol Use: No Hx Substance Use: No Preferred Language: Spanish Communication Ability: Effective Curtain Mender Required: No Beliefs That Will Affect Care: None marital status: Current Living Situation: Spouse current occupational status: retired Feels Safe at Home: Yes Assistive Devices: Cane and Walker Allergies Allergies Allergy/AdvReac Type Severity Reaction Status Date / Time bee venom protein (honey bee) Allergy Unknown swelling Verified 05/31/21 17:06 iodine Allergy Unknown DUE TO Verified 05/31/21 17:06 SHELLFISH ALLERGY-IODINATED DYE-UNKNOWN morphine Allergy Unknown stopped Verified 05/31/21 17:06 breathing Penicillins Allergy Unknown RASH Verified 05/31/21 17:06 shellfish derived Allergy Unknown ANAPHYLAXIS Verified 05/31/21 17:06 Home Meds Home Medications Medication Instructions Recorded Confirmed aspirin 81 mg tablet,delayed 81 mg PO QAM 07/21/19 11/14/23 release atorvastatin 80 mg tablet 80 mg PO HS 07/21/19 11/14/23 metformin 500 mg tablet 500 mg PO QAM 07/21/19 11/14/23 pantoprazole 40 mg tablet,delayed 40 mg PO QAM 07/21/19 11/14/23 release nitroglycerin 0.4 mg sublingual 0.4 mg sublingual Q5M PRN Chest 05/31/21 11/14/23 tablet Pain finasteride 5 mg tablet 5 mg PO QAM 11/29/22 11/14/23 iron,carbonyl 65 mg-vitamin C 125 1 tab PO QAM 11/29/22 11/14/23 mg tablet,delayed release (Vitron-C) levothyroxine 50 mcg tablet 50 mcg PO DAILYBB 11/29/22 11/14/23 metoprolol succinate 25 mg 25 mg PO DAILY 11/29/22 11/14/23 tablet,extended release 24 hr acetaminophen 650 mg 1,300 mg PO Q12H PRN Pain 07/21/23 11/14/23 tablet,extended release (Tylenol 8 Hour) cyanocobalamin (vitamin B-12) 1,000 mcg PO DAILY 07/21/23 11/14/23 1,000 mcg tablet (Vitamin B-12) escitalopram oxalate 10 mg tablet 10 mg PO QAM 07/21/23 11/14/23 folic acid 1 mg tablet 1 mg PO DAILY 11/14/23 11/14/23 furosemide 40 mg tablet (Lasix) 40 mg PO DAILY 11/14/23 11/14/23 Previous Rx's Medication Instructions Recorded apixaban 5 mg tablet (Eliquis) 5 mg PO Q12H #60 tabs 12/01/22 potassium chloride 20 mEq 20 meq PO DAILY #30 tabs 12/01/22 tablet,extended release acetaminophen 500 mg tablet 500 mg PO Q8H #30 tabs 11/18/23 (Tylenol Extra Strength) diclofenac sodium 1 % topical gel 2 g EXT Q6H PRN pain #100 grams 11/18/23 (Voltaren Arthritis Pain) ferrous sulfate 325 mg (65 mg 325 mg PO DAILY #30 tabs 11/18/23 iron) tablet (iron) oxycodone 5 mg tablet 5 mg PO Q8H PRN pain #10 tabs 11/18/23 polyethylene glycol 3350 17 gram 17 g PO DAILY #30 ea 11/18/23 oral powder packet (Miralax) urea 15 gram oral powder packet 15 g PO BID #8 ea 11/18/23 (Ure-Na) Results & Data (ED) Vital Signs Vital Signs - 24 hr 12/13/23 13:50 12/13/23 14:45 Temperature 36.7 C Temperature Source Temporal Artery Scan Pulse Rate 81 Respiratory Rate 18 18 Respiratory Effort / Characteristics Non-Labored Spontaneous Non-Labored Spontaneous Respiratory Depth Normal Normal Respiratory Pattern Regular Blood Pressure 131/78 Blood Pressure [Left Arm] 123/72 Blood Pressure Mean 95 Blood Pressure Mean [Left Arm] 89 Blood Pressure Position Sitting Pulse Oximetry 98 95 Oxygen Delivery Method Room Air Room Air Sepsis Recent Fever Within 48 Hours No Sepsis New/Unexplained Change in Mental Status No Sepsis Action Taken by Nursing No Action Required Home Medications Current Medication List: was personally reviewed by me Laboratory Data Attestation: I reviewed the patient's lab results. 12/13/23 14:06 12/13/23 14:06 Lab Results 12/13/23 Range/Units 14:06 WBC 7.45 (4.8-10.8) K/ul RBC 3.25 L (4.70-6.10) M/uL Hgb 10.5 L (14.0-18.0) g/dl Hct 33.2 L (42.0-52.0) % MCV 102.2 H (80.0-100.0) fL MCH 32.3 (25.0-34.0) pg MCHC 31.6 L (32.0-36.0) g/dL RDW Std Deviation 63.0 H (36.4-46.3) fL RDW Coeff of Geronimo 17.1 H (11.5-14.5) % Plt Count 119 L (130-400) K/uL MPV 9.9 (9.4-12.4) fL Immature Gran % (Auto) 0.8 % Neut % (Auto) 78.2 % Lymph % (Auto) 9.0 % Glascock % (Auto) 11.3 % Eos % (Auto) 0.4 % Baso % (Auto) 0.3 % Neut # (Auto) 5.83 (1.40-6.50) K/uL Lymph # (Auto) 0.67 L (1.20-3.40) K/uL Glascock # (Auto) 0.84 H (0.11-0.59) K/uL Eos # (Auto) 0.03 (0.00-0.50) K/uL Baso # (Auto) 0.02 (0.00-0.20) K/uL Immature Gran # (Auto) 0.06 (0.01-0.20) K/uL Sodium 132 L (136-145) mmol/L Potassium 4.8 (3.5-5.1) mmol/L Chloride 100 (98-107) mmol/L Carbon Dioxide 21 (21-32) mmol/L Anion Gap 11 (3-11) BUN 44 H (6-23) mg/dl Creatinine 1.77 H (0.6-1.4) mg/dl Est Cr Clr Drug Dosing Not Reportable Est GFR ( Amer) 39.4 ml/min Est GFR (Non-Af Amer) 34.0 ml/min BUN/Creatinine Ratio 24.9 H (10-20) Glucose 124 H (70-99(Fasting)) mg/dl Calcium 8.9 (8.6-10.3) mg/dl Magnesium 2.0 (1.7-2.4) mg/dl Total Bilirubin 1.6 H (0.2-1.0) mg/dl AST 127 H (13-39) U/L ALT 153 H (7-52) U/L Alkaline Phosphatase 140 H (34-104) U/L Troponin I High Sens 84.3 H* (0-20) pg/ml B-Natriuretic Peptide > 4700 H (0-100) pg/ml Total Protein 7.0 (6.0-8.3) gm/dl Albumin 4.0 (3.4-5.0) gm/dl Globulin 3.0 (2.5-4.0) gm/dl Albumin/Globulin Ratio 1.3 (0.9-2) Lipase 17 (11-82) U/L TSH 4.575 H (0.300-4.500) uIu/ml Free T4 1.04 (0.61-1.60) ng/dl Imaging Data Radiologist's Impression: Chest X-Ray 12/13/23 14:06 XR chest 1V portable HISTORY: 88 years-old Male poss chf acute shortness of breath COMPARISON: 11/16/2023 TECHNIQUE: AP view the chest FINDINGS: Cardiac silhouette is enlarged. Median sternotomy. Left subclavian pacer. Pulmonary vascular congestion and interstitial coarsening. Small left greater than right pleural effusions with mild left basilar predominant consolidation. No pneumothorax. Bones appear grossly intact. IMPRESSION: 1. Cardiomegaly with suggestion of mild pulmonary edema. 2. Small pleural effusions with left basilar predominant opacities favoring atelectasis. ACT 112: Negative or not required by law. The above report was generated using voice recognition software. It may contain grammatical, syntax or spelling errors. Electronically signed by: Viet Whittaker M.D. 12/13/2023 2:58 PM Discharge Plan Visit Data Chief Complaint: Testicular Pain Stated Complaint: DISCENDED ABD, SWOLLEN TESTACLES ED Provider: Yovani Fontaine Discharge Problem: SOB (shortness of breath), Anemia, Acute urinary retention, CHF (congestive heart failure), Edema, KARLENE (acute kidney injury), Elevated troponin Patient Disposition: Admitted As Inpatient Condition: Fair Forms Stand Alone Forms: My [facility] Prescriptions Prescriptions: No Action metformin 500 mg Tablet 500 mg PO QAM atorvastatin 80 mg Tablet 80 mg PO HS aspirin 81 mg Tablet,Delayed Release (Dr/Ec) 81 mg PO QAM pantoprazole 40 mg Tablet,Delayed Release (Dr/Ec) 40 mg PO DAILYBB nitroglycerin 0.4 mg tablet, sublingual 0.4 mg sublingual Q5M PRN (Reason: Chest Pain) levothyroxine 50 mcg tablet 50 mcg PO DAILYBB Rx Instructions: PER PT'S FAMILY "STOPPED AT [facility]". PER GM--"STOPPED 11/27/23" metoprolol succinate 25 mg tablet extended release 24 hr 25 mg PO DAILY finasteride 5 mg tablet 5 mg PO QAM Vitron-C 65 mg iron- 125 mg Tablet,Delayed Release (Dr/Ec) 1 tab PO QAM potassium chloride 20 mEq tablet extended release 20 meq PO DAILY Qty: 30 0RF Rx Instructions: PER PT'S SPOUSE "STOPPED AT [facility]" Eliquis 5 mg tablet 5 mg PO Q12H Qty: 60 0RF acetaminophen [Tylenol 8 Hour] 650 mg Tablet Extended Release 1,300 mg PO Q8H PRN (Reason: Pain) escitalopram oxalate 10 mg tablet 10 mg PO QAM folic acid 1 mg tablet 1 mg PO DAILY Rx Instructions: PER PT'S SPOUSE "STOPPED THIS MED AT [facility]". furosemide [Lasix] 40 mg tablet 40 mg PO DAILY oxycodone 5 mg Tablet 5 mg PO Q8H PRN (Reason: pain) Qty: 10 0RF diclofenac sodium [Voltaren Arthritis Pain] 1 % Gel 2 g EXT Q6H PRN (Reason: pain) Qty: 100 0RF Ure-Na 15 gram Powder In Packet 15 g PO BID Qty: 8 0RF Rx Instructions: PER PT'S SPOUSE "STOPPED THIS MED AND REPLACED WITH 'SALT' TABLETS". tizanidine 4 mg tablet 4 mg PO BID PRN (Reason: MUSCLE SPASMS) fluticasone propionate [Flonase] 50 mcg/actuation Rice,Suspension 1 spray INTRANASAL DAILY PRN (Reason: Congestion) Rx Instructions: administer into each nostril sodium chloride 1,000 mg Tablet,Soluble 1,000 mg PO TID Referrals Referrals: Angelo Vazquez MD [Primary Care Provider] - Discharge Problem: Anemia Qualifiers: Anemia type: unspecified type Qualified Code(s): D64.9 - Anemia, unspecified CHF (congestive heart failure) Qualifiers: Heart failure type: unspecified Heart failure chronicity: acute Qualified Code(s): I50.9 - Heart failure, unspecified Edema Qualifiers: Edema type: unspecified Qualified Code(s): R60.9 - Edema, unspecified
[2023-12-13 14:46] LABS: Alanine Aminotransferase 153 U/L (7-52); Albumin Globulin Ratio 1.3 (0.9-2); Alkaline Phosphatase 140 U/L (34-104); Anion Gap 11 (3-11); Aspartate Aminotransferase 127 U/L (13-39); BUN Creatinine Ratio 24.9 (10-20); Bilirubin,Total 1.6 mg/dl (0.2-1.0); Blood Urea Nitrogen 44 mg/dl (6-23); Calcium 8.9 mg/dl (8.6-10.3); Carbon Dioxide 21 mmol/L (21-32); Chloride 100 mmol/L (98-107); Est GFR (African American) 39.4 ml/min; Glucose 124 mg/dl (70-99(Fasting)); Lipase 17 U/L (11-82); Potassium 4.8 mmol/L (3.5-5.1); Sodium 132 mmol/L (136-145)
--- NOTE | 2023-12-13 14:59 | XRay Report ---
XR chest 1V portable HISTORY: 88 years-old Male poss chf acute shortness of breath COMPARISON: 11/16/2023 TECHNIQUE: AP view the chest FINDINGS: Cardiac silhouette is enlarged. Median sternotomy. Left subclavian pacer. Pulmonary vascular congesti on and interstitial coarsening. Small left greater than right pleural effusions with mild left basila r predominant consolidation. No pneumothorax. Bones appear grossly intact. IMPRESSION: 1. Cardiomegaly with suggestion of mild pulmonary edema. 2. Small pleural effusions with left basilar predominant opacities favoring atelectasis. ACT 112: Negative or not required by law. The above report was generated using voice recognition software. It may contain grammatical, syntax o r spelling errors. Electronically signed by: Viet Whittaker M.D. 12/13/2023 2:58 PM
[2023-12-13 15:00] LABS: Troponin I High Sensitivity 84.3 pg/ml (0-20)
[2023-12-13 15:01] LABS: Thyroid Stimulating Hormone 4.575 uIu/ml (0.300-4.500)
[2023-12-13 15:35] LABS: T4 Free Thyroxine 1.04 ng/dl (0.61-1.60)
[2023-12-13 15:35] LABS: Appearance Urine Cloudy (Clear); Bacteria Urine Automated None Seen (None Seen); Bilirubin Urine 1+ (Negative); Blood Urine Negative (Negative); Cast Urine Automated >20 /lpf (0-2); Color Urine Dark Yellow; Glucose Urine UA Negative (Negative); Granular Casts Urine Present /lpf (None Prsent); Ketones Urine Trace (Negative); Leukocyte Esterase Urine Negative (Negative); Nitrite Urine Negative (Negative); Protein Urine 2+ (Negative); RBC Urine Automated >20 /hpf (0-2); Specific Gravity Urine 1.025 (1.000-1.030); Urobilinogen Urine Negative (Negative); WBC Urine Automated 0-5 /hpf (0-5)
--- NOTE | 2023-12-13 15:58 | History & Physical Report ---
Date of Service December 13, 2023 Assessment & Plan (1) Acute on chronic heart failure with preserved ejection fraction (HFpEF): (2) Pulmonary edema: (3) Aortic stenosis: (4) Transaminitis: (5) Elevated troponin: Plan: Srini Ch is an 88 y/o M with PMHx of DM type II, diabetic retinopathy, DM kidney disease, SIADH, dyslipidemia, acquired hypothyroidism, paroxysmal A-fib [ on Eliquis], CAD, HTN, nonrheumatic aortic valve stenosis s/p pacemaker placement, chronic systolic heart failure, GERD, BPH with obstruction/LUTS, urge incontinence, depression and other problems listed below who presented to the ED today for evaluation of SOB, frequent urination and bilateral leg/testicular swelling. Of note, patient was recently hospitalized last month [11/14/23-11/18/23] s/p fall and subsequent closed right hip fracture requiring nonoperative management. 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 Patient was also seen by orthospine [Dr. Camp] during that hospitalization for compression fractures of T11 and T12. Per discharge summary documentation, he was to follow-up with the orthospine office in ~2 weeks upon d/c for additional radiographs at the thoracolumbar junction AP and lateral views. Patient was also started on an iron supplement upon discharge d/t acute on chronic anemia. His hemoglobin during that hospitalization stabilized around 8, likely 2/2 blood loss as a result of the hip fracture that occurred. Appears baseline hemoglobin around 11-12. Patient was d/c to [facility] for rehabilitation therapy. Most recent echo performed on 11/17/2023 and revealed the following findings: moderate concentric LVH, thickened/angulated basal septum consistent with sigmoid septum, mild global hypokinesis of the left ventricle, LVEF = 45-50%, calcified aortic valve leaflets w/ restricted leaflet mobility and mild to moderate aortic stenosis, moderate mitral annular calcification and trace mitral regurgitation. Vital signs on admission: BP 123/72, HR 81, RR 18, temp 36.7 C, SpO2 95% on RA. --> Not currently requiring any supplemental oxygen therapy at this time. No acute leukocytosis. RBC 3.25, Hgb 10.5 and Hct 33.2. --> As per above, baseline hemoglobin around 11-12. Hx of chronic hyponatremia --> Sodium 132 on admission. Creatinine elevated at 1.77 --> Baseline Cr ~ 0.88 - Evidence of KARLENE on admission. Glucose elevated at 124 on admission, patient takes metformin at home. LFTs elevated @ AST 127, ALT 153 and Alk Phos 140. Total bili 1.6 as well. Initial troponin 84.3, repeat troponin ~2hrs later = 72.4 [DOWNTRENDING]. BNP >4700 on admission, previous hx of chronic systolic HF as above. UA displayed no acute evidence of infection. However, urine was cloudy and RBCs are present in the urine. Chest x-ray revealed the following: * Cardiomegaly w/ suggestion of mild pulmonary edema. * Small pleural effusions w/ left basilar predominant opacities favoring atelectasis. Bilateral LE venous doppler displayed NO evidence of DVT w/in the R or L lower extremity. -Ordered 40mg IV Lasix to be given in ED, will continue ETIOLOGIST potassium supplementation. -Bowel regimen in place, daily Miralax scheduled. Can continue ETIOLOGIST aspirin. -Easy to chew, carb consistent/HH diet. --> Has dentures that make it difficult to chew. -PRN PO Tylenol in place for mild/moderate pain. Will continue ETIOLOGIST oxycodone therapy for severe pain. -Repeat CMP, CBC (no diff) in AM --> Trend LFTs in the AM, gallbladder U/S pending. -Continuous cardiac monitoring in place. Daily weights, closely monitor I&O's. Fall precautions in place. -Cardiology consult placed given recent pacemaker placement, appreciate their input/recommendations. -Oxygen as needed, MRSA DNA ordered. PT/OT evaluations given recent R hip fx, ambulation difficulties. (6) Swelling of the testicles: (7) Acute urinary retention: Plan: As per HPI, patient had not urinated since being home from [facility] yesterday. He would attempt to urinate, but had no success in doing so. -Olivo catheter placed in the ED, manage daily upon transfer. -Monitor testicular swelling, pain control regimen in place. -Closely monitor I&Os, daily weights. Bladder scan as needed. (8) KARLENE (acute kidney injury): Plan: -Will hold ETIOLOGIST atorvastatin therapy for now, repeat CMP in the AM. -Continue to monitor renal function and hold any nephrotoxic medications for the time being. (9) Pressure injury of skin of sacral region: Plan: Noted in my physical examination --> Sacral pressure ulcers w/o evidence of harsh drainage, dried blood surrounding both sites --> ? Stage II ? -Wound culture pending, wound care consult placed --> Appreciate their input/recommendations. As per above, NO acute leukocytosis. -Will hold off on ABX therapy for now per Dr. Lamas's recommendation. Sites do NOT appear acutely infected. CT lumbar spine pending to r/o any infection --> Results pending. -Communication order sent to nursing staff to alert need for frequent repositioning to prevent worsening of ulcers. (10) Confusion: Plan: As per HPI, family reports some recent confusion and agitation since being home. No recent falls or head trauma since being home or at [facility] per the family's recollection. -Ordered head CT to establish baseline findings, r/o any acute abnormalities --> Results pending. -Monitor for any signs of increasing delirium while hospitalized. (11) DMII (diabetes mellitus, type 2): Plan: -Will hold ETIOLOGIST metformin therapy, initiate SSI regimen while hospitalized. -Repeat Hgb A1C in the AM --> Last recorded Hgb A1C 6.5 on 11/30/22. (12) Dyslipidemia: Plan: Creatinine elevated at 1.77 --> Baseline Cr ~ 0.88 - Evidence of KARLENE on admission. -Will HOLD ETIOLOGIST statin therapy given presence of KARLENE. -Continue to hold nephrotoxic medications while hospitalized. (13) Gastroesophageal reflux disease: Plan: -Can continue ETIOLOGIST pantoprazole while hospitalized. (14) Tachy-santy syndrome: (15) S/P placement of cardiac pacemaker: (16) Chronic anticoagulation: Plan: Per my interpretation, EKG performed in the ED revealed the following: atrial-sensed ventricular-paced rhythm, HR 64bpm, P-R Int 166ms, QRS Dur 150ms and QT/QTc Int 508/524ms. -Will repeat EKG in the AM given evidence of QT/QTc prolongation on admitting EKG. -Cardiology consult placed as above, appreciate their recommendations/input. -Continue ETIOLOGIST Eliquis therapy for DVT prophylaxis while hospitalized. (17) Hypertension: Plan: Vital signs on admission: BP 123/72, HR 81, RR 18, temp 36.7 C, SpO2 95% on RA. --> Not currently requiring any supplemental oxygen therapy at this time. -Will continue ETIOLOGIST metoprolol succinate w/ HOLD PARAMETERS. (18) Chronic hyponatremia: Plan: Hx of chronic hyponatremia --> Sodium 132 on admission. -Will continue ETIOLOGIST sodium chloride supplementation while hospitalized. -Continue to monitor sodium level, replete as needed. (19) Acquired hypothyroidism: Plan: TSH on admission slightly elevated @ 4.575 --> Will continue ETIOLOGIST levothyroxine for now. (20) History of depression: Plan: Per my interpretation, EKG performed in the ED revealed the following: atrial- sensed ventricular-paced rhythm, HR 64bpm, P-R Int 166ms, QRS Dur 150ms and QT/QTc Int 508/524ms. -Given evidence of prolonged QT/QTc on admitting EKG, will HOLD ETIOLOGIST Lexapro for now --> Repeat EKG in AM and check for any changes of QT/QTc Int. -Consider restarting SSRI therapy when QT/QTc < 500. Condition appears stable, chronic. (21) Skin irritation: Plan: As per HPI --> reports that he has some skin irritation in his right groin region that has been ongoing for couple of days, she has been applying protective ointment to the region w/o much improvement. -Resembles intertriginous candidiasis on examination. Will order clotrimazole cream to be applied to the region BID. (22) History of anemia: Plan: RBC 3.25, Hgb 10.5 and Hct 33.2. --> As per above, baseline hemoglobin around 11-12. -Will continue ETIOLOGIST iron supplementation. -Repeat CBC in AM, trend levels. DVT Prophylaxis: Eliquis --> Present ETIOLOGIST, will continue while hospitalized. Code Status: Full Code PCP: Angelo Vazquez MD Dispo: Admit to PCU/Telemetry Patient seen in collaboration with Dr. Lamas. Please see addendum. I spent a total of 75 minutes coordinating, documenting, and providing care for this patient excluding time spent in the performance of separately billed services. This included personally reviewing all current laboratories and imaging studies, medical reconciliation, outpatient chart review and discussion with specialists. This chart was completed in part utilizing Speech Voice Recognition Software. Grammatical errors, random word insertions, pronoun errors, and incomplete sentences are an occasional consequence of this system due to software limitations, ambient noise, and hardware issues. Any formal questions or concerns about the content, text, or information contained within the body of this dictation should be directly addressed to the provider for clarification. History of Present Illness Chief Complaint: SOB, Infrequent Urination & B/L Leg + Testicular Swelling Primary Care Provider: Angelo Vazquez MD Srini Ch is an 88 y/o M with PMHx of DM type II, diabetic retinopathy, DM kidney disease, SIADH, dyslipidemia, acquired hypothyroidism, paroxysmal A-fib [ on Eliquis], CAD, HTN, nonrheumatic aortic valve stenosis s/p pacemaker placement, chronic systolic heart failure, GERD, BPH with obstruction/LUTS, urge incontinence, depression and other problems listed below who presented to the ED today for evaluation of SOB, frequent urination and bilateral leg/testicular swelling. History obtained partially from patient, and associated ED/previous hospitalization/PCP/specialist records. Of note, patient was recently hospitalized last month [11/14/23-11/18/23] s/p fall and subsequent closed right hip fracture requiring nonoperative management. 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 Patient was also seen by orthospine [Dr. Camp] during that hospitalization for compression fractures of T11 and T12. Per discharge summary documentation, he was to follow-up with the orthospine office in ~2 weeks upon d/c for additional radiographs at the thoracolumbar junction AP and lateral views. Patient was also started on an iron supplement upon discharge d/t acute on chronic anemia. His hemoglobin during that hospitalization stabilized around 8, likely 2/2 blood loss as a result of the hip fracture that occurred. Appears baseline hemoglobin around 11-12. Patient was d/c to [facility] for rehabilitation therapy. Patient seen at bedside. Patient is accompanied by his and son in the room, who provide most of the history. Patient was just d/c from [facility] yesterday to return home. Son states that he has been increasingly lethargic since coming home yesterday from [facility]. Has been having significant difficulty ambulating, he does use a walker at home at baseline. Has needed a lot of support from his family to move around. Patient is currently reporting pain in his legs and sacral region. Family reports he has sacral wounds present from his stay at [facility]. They have been applying protective cream and bandages to the region, and have noted some improvement. Patient does have a tendency to rip off protective bandaging on his sacral region. Son notes that he has become increasingly confused since being home from [facility]. He is "not acting like himself" per his son. They deny any recent falls or head trauma. notes that he has had a significant decrease in his appetite since the beginning of this year. He has been drinking protein shakes at home, and occasionally drinking soda. He is not really eating full meals; reports that he has been drinking/eating soup here and there. reports that he has some skin irritation in his right groin region that has been ongoing for couple of days, she has been applying protective ointment to the region without much improvement. He has also had some painful testicular swelling since yesterday, and he has not been able to urinate since being home from [facility]. His and son have noted bilateral leg swelling for the past few days as well. He does take 40 mg Lasix on a daily basis. He did take his medications as prescribed this morning. denies any dysphagia concerns, but states he has "difficulty chewing" due to his dentures. Patient does have hearing aids in place. Patient denies any chest pain. His and son report SOB on exertion, moving around or repositioning in bed which resolves rather quickly. He is not on supplemental oxygen therapy at home. He denies any current SOB. Patient mainly complaining of testicular and leg pain. As per above, he is on Eliquis therapy. Patient denies any lightheadedness or dizziness. He currently denies any abdominal pain, but reports his stool has been "pellet shaped." denies any orthopneic concerns, patient sleeps lying flat with no evidence of nocturnal dyspnea. He lives at home with his . Son reports that he has "worsening dementia" at this point, however I could not find that diagnosis in his chart. Most recent echo performed on 11/17/2023 and revealed the following findings: moderate concentric LVH, thickened/angulated basal septum consistent with sigmoid septum, mild global hypokinesis of the left ventricle, LVEF = 45-50%, calcified aortic valve leaflets w/ restricted leaflet mobility and mild to moderate aortic stenosis, moderate mitral annular calcification and trace mitral regurgitation. Vital signs on admission: BP 123/72, HR 81, RR 18, temp 36.7 C, SpO2 95% on RA. --> Not currently requiring any supplemental oxygen therapy at this time. No acute leukocytosis. RBC 3.25, Hgb 10.5 and Hct 33.2. --> As per above, baseline hemoglobin around 11-12. Hx of chronic hyponatremia --> Sodium 132 on admission. Creatinine elevated at 1.77 --> Baseline Cr ~ 0.88 - Evidence of KARLENE on admission. Glucose elevated at 124 on admission, patient takes metformin at home. LFTs elevated @ AST 127, ALT 153 and Alk Phos 140. Total bili 1.6 as well. Initial troponin 84.3, repeat troponin ~2hrs later = 72.4 [DOWNTRENDING]. BNP >4700 on admission, previous hx of chronic systolic HF as above. UA displayed no acute evidence of infection. However, urine was cloudy and RBCs are present in the urine. Chest x-ray revealed the following: * Cardiomegaly w/ suggestion of mild pulmonary edema. * Small pleural effusions w/ left basilar predominant opacities favoring atelectasis. Allergies Allergy/AdvReac Type Severity Reaction Status Date / Time iodine Allergy Severe DUE TO Verified 12/13/23 15:57 SHELLFISH ALLERGY-IODINATED DYE-UNKNOWN morphine Allergy Severe Anaphylaxis Verified 12/13/23 15:57 shellfish derived Allergy Severe ANAPHYLAXIS Verified 12/13/23 15:57 bee venom protein (honey bee) Allergy Intermediate EXTRA Verified 12/13/23 15:57 SWELLING AT SITES Penicillins Allergy Intermediate RASH Verified 12/13/23 15:57 Home Medications Medication Instructions Recorded Confirmed Type aspirin 81 mg tablet,delayed 81 mg PO QAM 07/21/19 12/13/23 History release atorvastatin 80 mg tablet 80 mg PO HS 07/21/19 12/13/23 History metformin 500 mg tablet 500 mg PO QAM 07/21/19 12/13/23 History pantoprazole 40 mg tablet,delayed 40 mg PO DAILYBB 07/21/19 12/13/23 History release nitroglycerin 0.4 mg sublingual 0.4 mg sublingual Q5M PRN Chest 05/31/21 12/13/23 History tablet Pain finasteride 5 mg tablet 5 mg PO QAM 11/29/22 12/13/23 History iron,carbonyl 65 mg-vitamin C 125 1 tab PO QAM 11/29/22 12/13/23 History mg tablet,delayed release (Vitron-C) levothyroxine 50 mcg tablet 50 mcg PO DAILYBB 11/29/22 12/13/23 History metoprolol succinate 25 mg 25 mg PO DAILY 11/29/22 12/13/23 History tablet,extended release 24 hr apixaban 5 mg tablet (Eliquis) 5 mg PO Q12H #60 tabs 12/01/22 12/13/23 Rx potassium chloride 20 mEq 20 meq PO DAILY #30 tabs 12/01/22 12/13/23 Rx tablet,extended release acetaminophen 650 mg 1,300 mg PO Q8H PRN Pain 07/21/23 12/13/23 History tablet,extended release (Tylenol 8 Hour) escitalopram oxalate 10 mg tablet 10 mg PO QAM 07/21/23 12/13/23 History folic acid 1 mg tablet 1 mg PO DAILY 11/14/23 12/13/23 History furosemide 40 mg tablet (Lasix) 40 mg PO DAILY 11/14/23 12/13/23 History diclofenac sodium 1 % topical gel 2 g EXT Q6H PRN pain #100 grams 11/18/23 12/13/23 Rx (Voltaren Arthritis Pain) oxycodone 5 mg tablet 5 mg PO Q8H PRN pain #10 tabs 11/18/23 12/13/23 Rx urea 15 gram oral powder packet 15 g PO BID #8 ea 11/18/23 12/13/23 Rx (Ure-Na) fluticasone propionate 50 1 spray intranasal DAILY PRN 12/13/23 12/13/23 History mcg/actuation nasal Congestion spray,suspension sodium chloride 1,000 mg soluble 1,000 mg PO TID 12/13/23 12/13/23 History tablet tizanidine 4 mg tablet 4 mg PO BID PRN MUSCLE SPASMS 12/13/23 12/13/23 History Past Med/Surg History Problem List (Updated 12/13/23 @ 19:43 by Jenny Guillen PA-C) Swelling of the testicles Skin irritation Transaminitis History of depression History of anemia Acquired hypothyroidism Confusion Acute on chronic heart failure with preserved ejection fraction (HFpEF) Chronic hyponatremia Chronic systolic heart failure S/P placement of cardiac pacemaker Dyslipidemia Gastroesophageal reflux disease Pressure injury of skin of sacral region Elevated troponin (Acute) KARLENE (acute kidney injury) (Acute) Acute urinary retention (Acute) DMII (diabetes mellitus, type 2) Tachy-santy syndrome Chronic anticoagulation Pulmonary edema (Acute) Aortic stenosis Hypertension (Chronic) Medical History CHF (congestive heart failure) Anemia Ground-level fall ASCVD (arteriosclerotic cardiovascular disease) Closed right hip fracture Compression fracture of T12 vertebra Compression fracture of lumbar vertebra Labile blood pressure SIADH (syndrome of inappropriate ADH production) COVID-19 Nausea Coronary artery disease Supratherapeutic INR Atypical chest pain Lumbar stenosis Paroxysmal atrial fibrillation Surgical History History of coronary artery bypass graft History of carpal tunnel surgery "bilateral" S/P total hip arthroplasty S/P total knee arthroplasty 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; [facility]" History of percutaneous coronary intervention S/P lumbar microdiscectomy H/O heart artery stent Family History Father Coronary heart disease Social History Smoking Status: Never smoker Second Hand Exposure: No; Do You Dip or Chew Tobacco: No; Hx Alcohol Use: No Hx Substance Use: No Preferred Language: Yoruba Communication Ability: 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 Physical Exam Physical Exam: General Appearance: No acute distress, patient appears somewhat dry on exam. Head: Normocephalic, atraumatic. Eyes: Normal inspection, PERRL, conjunctivae normal, anicteric sclerae. ENT: External ear and nose normal, mucous membranes appear slightly dry. Neck: Normal visual inspection, trachea midline, no thyromegaly. Respiratory: Crackles bilaterally. No wheezing, some SOB w/ movement in bed. Cardiovascular: Regular rate, rhythm, normal peripheral pulses. Significant pitting edema in bilateral lower extremities. Chest: Bandage in place on the upper right chest aspect from previous pacemaker placement, no discharge or surrounding erythema. Abdomen/GI: Normal bowel sounds, soft, nontender, no hepatosplenomegaly. : Testicular swelling/edema present, tender to palpation. Extremities/Musculoskeletal: No cyanosis or clubbing, unable to lift right leg appropriately s/p R hip fx. Was able to lift left leg on exam. Neurologic: PERRL, EOMI, accommodation nl, no face palsy, no dysarthria, normal sensation to touch in bilateral LE. Psychiatric: A+Ox2, somewhat agitated. Awake and alert, no acute sensory deficits. Skin: Appears pale, mild skin irritation in the right groin region. Sacral pressure ulcers w/o evidence of harsh drainage, dried blood surrounding both sites --> ? Stage II ? Results & Data Results & Data Vital Signs (Past 12 Hours) Vital Signs Temp Pulse Resp BP BP Pulse Ox O2 Del Method 12/13/23 14:45 18 123/72 95 Room Air 12/13/23 13:50 36.7 C 81 18 131/78 98 Room Air Laboratory Results Short CBC 12/13/23 Range/Units 14:06 WBC 7.45 (4.8-10.8) K/ul Hgb 10.5 L (14.0-18.0) g/dl Hct 33.2 L (42.0-52.0) % Plt Count 119 L (130-400) K/uL BMP 12/13/23 14:06 Sodium 132 L Potassium 4.8 Chloride 100 Carbon Dioxide 21 BUN 44 H Creatinine 1.77 H Glucose 124 H Calcium 8.9 Liver Function 12/13/23 Range/Units 14:06 Total Bilirubin 1.6 H (0.2-1.0) mg/dl AST 127 H (13-39) U/L ALT 153 H (7-52) U/L Alkaline Phosphatase 140 H (34-104) U/L Albumin 4.0 (3.4-5.0) gm/dl Urine 12/13/23 Range/Units 15:05 Urine Color Dark Yellow Urine Appearance Cloudy A (Clear) Urine pH 5.0 (4.5-7.5) Ur Specific [place] 1.025 (1.000-1.030) Urine Protein 2+ H (Negative) Urine Glucose (UA) Negative (Negative) Diagnostic Findings Chest X-Ray 12/13/23 14:06 XR chest 1V portable HISTORY: 88 years-old Male poss chf acute shortness of breath COMPARISON: 11/16/2023 TECHNIQUE: AP view the chest FINDINGS: Cardiac silhouette is enlarged. Median sternotomy. Left subclavian pacer. Pulmonary vascular congestion and interstitial coarsening. Small left greater than right pleural effusions with mild left basilar predominant consolidation. No pneumothorax. Bones appear grossly intact. IMPRESSION: 1. Cardiomegaly with suggestion of mild pulmonary edema. 2. Small pleural effusions with left basilar predominant opacities favoring atelectasis. ACT 112: Negative or not required by law. The above report was generated using voice recognition software. It may contain grammatical, syntax or spelling errors. Electronically signed by: Viet Whittaker M.D. 12/13/2023 2:58 PM Venous Doppler Study 12/13/23 14:34 BILATERAL LOWER EXTREMITY VENOUS DOPPLER HISTORY: Leg swelling. swelling COMPARISON STUDY: None. FINDINGS: There is normal compressibility, flow, and augmentation within the bilateral lower extremity deep venous systems. IMPRESSION: No DVT within the right or left lower extremity. ACT 112: Negative or not required by law. Electronically signed by: Ac Bullock M.D. 12/13/2023 5:04 PM Medications Administered Discontinued Medications Furosemide (Furosemide 40 Mg/4 Ml Vial) 40 mg IV ONE ONE Stop: 12/13/23 15:59 Last Admin: 12/13/23 16:43 Dose: 40 mg Documented By: SNS ECG Additional Comments: Per my interpretation, EKG performed in the ED revealed the following: atrial- sensed ventricular-paced rhythm, HR 64bpm, P-R Int 166ms, QRS Dur 150ms and QT/QTc Int 508/524ms. When compared to EKG done 11/17/23, ventricular rate has decreased by 6bpm. Code Status & VTE Plan Code Status FULL CODE VTE Prophylaxis Plan VTE Prophylaxis will be ordered: Yes Supervising Physician Co-Signing Physician Notes Attending Addendum: Case reviewed with the advanced practitioner. I have personally performed a history and physical examination on the patient. I have reviewed the advanced practitioner's documentation on the date of service referenced in note, and I agree with, and take responsibility for the plan of care. please refer to her notes for full details patient seen and examined, records reviewed by myself as well on exam, patient Seen resting in bed, comfortable, not in distress Confirms dyspnea with exertion, weakness Denies significant back pain, pain over sacral decubitus wounds no other symptoms VS noted and reviewed oriented x 3 , not in distress, speaks in sentences with no effort nor accessory muscle use normal rate, regular rhythm, no murmurs clear breath sounds bilaterally non distended, soft, nontender Bilateral buttocks Medial aspect, upper area 2 small superficial Open wounds No signs of acute infection, No active drainage, bleeding, no surrounding erythema or tenderness or warmth no bipedal edema, erythema, warmth no neuro deficits all labs, imaging noted and reviewed ASSESSMENT AND PLAN Acute CHF exacerbation, systolic type History of moderate to severe aortic stenosis Lasix 40 mg IV ordered today Resume Lasix 40 mg p.o. daily Cardiology service consulted Acute kidney injury Possible component of obstructive uropathy Urinary retention reported at home Olivo catheter placed Monitor renal function other diagnoses and plan of care as per advanced practitioner's notes Bilateral sacral decubitus wounds No signs of acute infection at this point Wound care nurse consulted Repositioning every 2 hours ordered Mahin Lamas MD (2) Pulmonary edema Chronicity: acute Qualified Code(s): J81.0 - Acute pulmonary edema (3) Aortic stenosis Cardiac valve disease etiology: nonrheumatic Qualified Code(s): I35.0 - Nonrheumatic aortic (valve) stenosis (9) Pressure injury of skin of sacral region Pressure injury stage: unspecified pressure injury stage Qualified Code(s): L89.159 - Pressure ulcer of sacral region, unspecified stage (11) DMII (diabetes mellitus, type 2) Diabetes mellitus complication status: with other specified complication Diabetes mellitus shelter insulin use: without petroleum terminal 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
[2023-12-13] MEDS: FUROSEMIDE 40 MG/4 ML VIAL IV ONE (16:43)
--- NOTE | 2023-12-13 17:05 | Ultrasound Report ---
BILATERAL LOWER EXTREMITY VENOUS DOPPLER HISTORY: Leg swelling. swelling COMPARISON STUDY: None. FINDINGS: There is normal compressibility, flow, and augmentation within the bilateral lower extremit y deep venous systems. IMPRESSION: No DVT within the right or left lower extremity. ACT 112: Negative or not required by law. Electronically signed by: Ac Bullock M.D. 12/13/2023 5:04 PM
[2023-12-13] MEDS ORDERED: tiZANidine HCL 4 MG TABLET PO PRN (17:39)
[2023-12-13] MEDS ORDERED: MAGNESIUM HYDROXIDE SUSP 30 ML UDC PO PRN (18:59)
[2023-12-13] MEDS ORDERED: Patient's HEIGHT Needed STA (19:01)
[2023-12-13] MEDS ORDERED: CEFEPIME 2,000 MG in SYRINGE 0 ML IV ONE (19:30)
--- NOTE | 2023-12-13 19:46 | CT Scan Report ---
Exam(s): CT L SPINE EXAM: CT Lumbar Spine Without Intravenous Contrast CLINICAL HISTORY: Reason for exam: Decubitus ulcers, r/o deeper infection. TECHNIQUE: Axial computed tomography images of the lumbar spine without intravenous contrast. CTDI is 37 mGy and DLP is 1109.25 mGy-cm. Automated exposure control was utilized for the study. A dose lowering technique was utilized adhering to the principles of ALARA. COMPARISON: 11/14/23 FINDINGS: Bones are osteopenic. There are fractures of T11 and T12, age- indeterminate but appearing stable from 11/14/23. Lumbar vertebral body height and alignment are maintained, without evidence of acute fracture or traumatic subluxation. There is mild multilevel disc degeneration in the lumbar spine. There is severe multilevel facet degeneration. Laminectomies have been performed at the L3 and L4 levels. There is moderate spinal canal stenosis at T11-T12 related to compression fractures and bony retropulsion at that level. No significant lumbar spinal canal stenosis is observed. Bilateral foraminal narrowing is suggested at L3-L4 and L4-L5. There is subcutaneous edema posteriorly. No decubitus ulceration is observed. IMPRESSION: Posterior subcutaneous edema, bland edema or cellulitis. No decubitus ulceration observed. No organized fluid collection. Electronically signed by: Alena Willis M.D. 12/13/23 19:45 PM
--- NOTE | 2023-12-13 19:47 | CT Scan Report ---
Exam(s): CT HEAD Without Contrast EXAM: CT Head Without Intravenous Contrast CLINICAL HISTORY: Reason for exam: Establish baseline findings, recent confusion. TECHNIQUE: Axial computed tomography images of the head/brain without intravenous contrast. CTDI is 62.75 mGy and DLP is 1100.35 mGy-cm. Automated exposure control was utilized for the study. A dose lowering technique was utilized adhering to the principles of ALARA. COMPARISON: 05/31/21 FINDINGS: Brain: There is generalized parenchymal volume loss. Periventricular and deep cerebral white matter hypoattenuation most likely reflects chronic small vessel ischemic change. Carrasquillo-white matter differentiation is maintained. There is no hemorrhage, mass effect, parenchymal edema, or midline shift. Ventricles: Unremarkable. No hydrocephalus. Bones/joints: Unremarkable. No acute fracture. Soft tissues: Unremarkable. Vasculature: Intracranial atherosclerosis. Sinuses: Unremarkable as visualized. Mastoid air cells: Unremarkable as visualized. No mastoid effusion. Orbits: Bilateral lens replacements. IMPRESSION: No acute intracranial process. Electronically signed by: Alena Willis M.D. 12/13/23 19:46 PM
[2023-12-13] MEDS: Patient's WEIGHT Needed STA (19:48)
[2023-12-13] MEDS ORDERED: CARBOHYDRATES FOR HYPOGLYCEMIA PO PRN (19:49)
[2023-12-13] MEDS ORDERED: GLUCOSE 40% GEL 15 GM TUBE PO PRN (19:49)
[2023-12-13] MEDS ORDERED: GLUCOSE 10 TAB/TUBE PO PRN (19:49)
[2023-12-13] MEDS ORDERED: GLUCAGON FOR INJ 1 MG VIAL SQ PRN (19:49)
[2023-12-13] MEDS ORDERED: DEXTROSE 50% 50 ML SYRINGE IV PRN (19:49)
[2023-12-13] MEDS: APIXABAN 5 MG TABLET PO SCH (20:27)
[2023-12-13] MEDS: SODIUM CHLORIDE 1 GM TABLET PO SCH (20:27)
[2023-12-13] MEDS: CLOTRIMAZOLE 1% CR 15 GM TUBE EXT SCH (20:28)
[2023-12-13] MEDS: INSULIN ASPART PER UNIT CHARGE SC SCH (20:36)
[2023-12-13] MEDS ORDERED: UREA (UREA-NA) 15 GM PACK PO SCH (21:00)
[2023-12-13] MEDS: oxyCODONE HCL IR 5 MG TAB (IMMEDIATE RELEASE) PO PRN (23:28)
--- OUTSIDE RECORDS SUMMARY | 2023-12-14 04:32 | External Medical Summary ---
Author Name Unknown Address Unknown Organization [id number]:LABORATORY [facility] [place] - [address] [place] [address] Laboratory Report Ordering Provider Test Date Status KELLY KENNEDY 11/30/2023 06:22:00 Final Observation Date Value Abnormality Reference (Units ) Status TSH 11/30/2023 06:22:00 4.46 Above high normal 0. 27-4.20 (uIU/mL) Final Performing Location LAB[facility]ORY [facility] - [address] [place] [address]
--- OUTSIDE RECORDS SUMMARY | 2023-12-14 04:32 | External Medical Summary ---
Author Name Unknown Address Unknown Organization [id number]:LABORATORY [facility] [address] - [address] [place] [address] Laboratory Report Ordering Provider Test Date Status OSITO HARP 12/10/2023 07:04:32 Final Observation Date Value Abnormality Reference (Units ) Status WBC, Total 12/10/2023 07:04:32 6.29 4.00-10.8 0 (K/uL) Final RBC 12/10/2023 07:04:32 2.83 4.50-5.25 (M/uL) Final Hemoglobin 12/10/2023 07:04:32 9.2 Below low normal 14 .0-16.8 (g/dL) Final HCT 12/10/2023 07:04:32 28.7 Below low normal 40. 0-48.4 (%) Final MCV 12/10/2023 07:04:32 101.4 82.0-99.5 (fL) Final MCH 12/10/2023 07:04:32 32.5 27.0-34.0 (pg) Final MCHC 12/10/2023 07:04:32 32.1 32.0-36.0 (g/dL) Final RDW 12/10/2023 07:04:32 15.8 11.5-15.5 (%) Final Platelets 12/10/2023 07:04:32 148 140-400 (K /uL) Final MPV 12/10/2023 07:04:32 9.4 6.6-11.1 ( fL) Final Performing Location LABORATORY [facility] [address] - [address] [place] [id number]
--- OUTSIDE RECORDS SUMMARY | 2023-12-14 04:32 | External Medical Summary ---
Author Name Unknown Address Unknown Organization K09:LABORATORY [place] [address] Laboratory Report Ordering Provider Test Date Status OSITO HARP 12/02/2023 06:15:19 Final Observation Date Value Abnormality Reference (Units ) Status WBC, Total 12/02/2023 06:15:19 5.16 4.00-10.8 0 (K/uL) Final RBC 12/02/2023 06:15:19 2.61 4.50-5.25 (M/uL) Final Hemoglobin 12/02/2023 06:15:19 8.4 Below low normal 14 .0-16.8 (g/dL) Final HCT 12/02/2023 06:15:19 26.1 Below low normal 40. 0-48.4 (%) Final MCV 12/02/2023 06:15:19 100.0 82.0-99.5 (fL) Final MCH 12/02/2023 06:15:19 32.2 27.0-34.0 (pg) Final MCHC 12/02/2023 06:15:19 32.2 32.0-36.0 (g/dL) Final RDW 12/02/2023 06:15:19 15.2 11.5-15.5 (%) Final Platelets 12/02/2023 06:15:19 143 140-400 (K /uL) Final MPV 12/02/2023 06:15:19 9.0 6.6-11.1 ( fL) Final Performing Location LAB[facility]ATORY [place] [address]
--- OUTSIDE RECORDS SUMMARY | 2023-12-14 04:32 | External Medical Summary | Summary of Care ---
Author Name Unknown Organization [facility] Address [address] [place] [address] Phone [phone] Care Team Providers [facility] Director Name Role Phone Angelo Vazquez MD Primary Care Provider + Reason for Visit * Reason Onset Date Comments Follow Up 11/29/2023 Encounter Details Date Type Department Care Team (Late st Contact Info) Description 11/29/2023 Telephone Nephrology, [facility] [address] [place] [address] Jose Winter MD [address] [facility] [place] [address] Follow Up Allergies Active Allergy Reactions Criticality Noted Date Comments Bee Venom 12/30/2015 Iodine Other (Please comment) 08/18/2011 Pt says not to use due to shellfish allergy Morphine Anaphylaxis High 08/18/2011 Penicillins Rash 08/18/2011 Shellfish Allergy Edema airway High 08/18/2011 documented as of this encounter (statuses as of 11/29/2023) Medications Medication Sig Dispensed Refills Start Date End Date Status TYLENOL ARTHRITIS PAIN 650 MG PO TBCR 2 TABLETS EVERY 8 HOURS NEEDED 60 Tab 5 07/25/2014 Active FLONASE 50 MCG/ACT NA SUSPIndications:Christian al erythema Administer into nostril. 1 Bottle 2 10/09/2014 Active Ca Carbonate-Mag Hydroxide 550-110 MG Oral Tablet Chewable Take by mouth. Active Aspirin 81 MG Oral Tablet Delayed Release Take 1 Tablet by mouth in the morning. Active Vitron-C 65-125 MG Oral Tablet (Iron-Vitamin C 65-125 mg per tab)Indications:Iro n deficiency anemia Take 1 Tablet by mouth in the morning. 07/22/2022 Active Atorvastatin Calcium 80 MG Oral Tablet (Lipitor)Indication s:Paroxysmal atrial fibrillation (HCC),CAD in algaaciq artery,S/P CABG x 3 TAKE ONE TABLET BY MOUTH DAILY 90 Tablet 3 01/20/2023 01/25/2024 Active metFORMIN HCl 500 MG Oral Tablet (Glucophage)Indicat ions:Type 2 diabetes mellitus with hemoglobin A1c goal of less than 8.0% (HCC) TAKE ONE TABLET BY MOUTH DAILY 90 Tablet 3 04/21/2023 04/20/2024 Active Nitroglycerin 0.4 MG Sublingual Tablet Sublingual (Nitrostat)Indicati ons:CAD in algaaciq artery DISSOLVE 1 TABLET UNDER THE TONGUE [...] as of this encounter (statuses as of 11/29/2023) Active Problems Problem Noted Date Diagnosed Date Medical home patient encounter 11/18/2023 Chronic systolic heart failure 09/27/2023 DM kidney disease 09/27/2023 Renal cyst, acquired, left 01/18/2023 Urge incontinence 01/18/2023 Well adult exam 12/03/2022 Overview: 12/01 [facility]TE [facility] Dyspnea on exertion 11/29/2022 Spinal stenosis of [...] Mild 2014 PAF (paroxysmal atrial fibrillation) 07/14/2012 [facility] current use of anticoagulant therapy 0 07/14/2012 Overview: ICD-10 update of inactive term Dysthymia 11/30/2011 Coronary artery disease invo lving algaaciq coronary artery of algaaciq heart without angina pectoris Overview: 05/30/14 3V CABG [facility]. Prior: 5 stents-hx angina. Drug eluting, & bare metal. Most recent 11/18 1986 LCAD PTCA 12.04 LAD & mid circ drug eluting stents 8.08-distal RCA non drug eluting stent 11/13/10 LAD Ion drug eluting stent 01/14/11 Cardiolite EF55% no ischemia Gastroesophageal reflux disease Overview: Particles are regurgitant, some acid reflux, not much coughing Dyslipidemia documented as of this encounter (statuses as of 11/29/2023) Resolved Problems Problem Noted Date Diagnosed Date [...] as of this encounter (statuses as of 11/29/2023) Immunizations Name Administration Dates Next Due COVID-19 mRNA, LNP-s, No Pre serve, 2-Dose Series ([employer]) 06/11/2021,10/09/2020,09/19/2020 Covid-19, Mrna, Lnp-s, Pf, B ivalent, 30 Mcg, IM, 12 yrs and above ([employer]) 05/03/2022 H1N1 2009 Influenza, IM 06/23/2009 Pneumococcal [...] encounter Miscellaneous Notes * Telephone Encounter - Estefanía Quiroz RN - 11/29/2023 9:54 AM EDT TE with pt's this morning regarding cancellation of appointment in Nephrology on 11/30/23. Wifereports that the doctor at the Rehab is requesting pt not be transported for appointments due to non surgical hip fracture that is not healed. They are doing some labs at [facility]. Please follow up with provider at [facility] with further orders. documented in this encounter Plan of Treatment Upcoming Encounters Date Type Department Care Team (Late st Contact Info) Description 12/26/2023 3:00 PM EDT Office Visit Cardiology, [facility] [address] [place] [address] Ewelina Poole PA-C [address] [place] [address] 01/24/2024 1:30 PM EDT Office Visit Urology, [facility] [address] [facility] [place] [address] George Tran MD [address] [place] [address] 03/13/2024 3:00 PM EDT Cardiac Studies Cardiac Studies, [facility] [address] [facility] [place] [address] Health Maintenance Due Date Last Done Comments Colonoscopy 11/02/2022 11/02/2017, 02/09, 03/05/2014 COVID-19 Vaccine ( season) 2023 05/03/2022, 06/11/2021, 10/09/2020, Additional history exists Diabetic Foot Exam 06/01/2023 06/01/2022, 0 12/08/2018, 09/08/2017, Additional history exists Diabetic Eye Exam 11/06/2023 11/05/2022, , 08/06/2022, Additional history exists Albumin/Creatinine Ratio 12/08/2023 023, 06/15/2021, 06/06/2019, Additional history exists HbA1c 05/23/2024 11/21/2023, 07/12, 02/08/2023, Additional history exists B-12 09/26/2024 09/27/2023, 07/12, 07/19/2022, Additional history exists DTaP,Tdap,and Td Vaccines (2 [...] this encounter Medical Devices Implanted Type Area [employer] Incident Responder Device Identifier Shelf Expiration Date Model / Serial / Lot Sut Steel 6 [id number] - [id number] Implanted:Qty: 4 on 05/30/2014 by Stanislav Hilliard MD at [place] [facility] N/A: Chest JNJ : [employer] 02/07/2019 [id number] / / [id number] Marker Coronary [facility] - [id number] Implanted:Qty: 2 on 05/30/2014 by Stanislav Hilliard MD at OR [facility] N/A: Aorta [employer] 03/10/2017 [facility] / / [id number] Lens Intraoc 20.5 - [id number] - [id number] Implanted:Qty: 1 on 02/18/2022 by Yandel Bowens MD at OR [facility] Left: Eye [employer] 11/07/2026 [id number] / [id number] / [id number] Lens Intraoc 21.5 - [id number] - [id number] Implanted:Qty: 1 on 03/04/2022 by Yandel Bowens MD at OR [facility] Right: Eye [employer] 10/08/2026 [id number] / [id number] / [id number] documented as of this encounter Advance Directives * No Code (Latest Code Status on File) Date Activated Date Inactivated Comments 03/04/2022 8:43 AM 03/04/2022 2:28 PM This order r eflects the patients wishes and were consensually agreed upon. Question Answer Comments Discussion of Advance Directives occurred with: Patient Does the patient have a Living Will? No Does the patient have Health Care Power of Attor jennifer? No * No Code Date Activated Date Inactivated Comments 02/18/2022 7:51 AM 02/18/2022 2:15 PM This order r eflects the patients wishes and were consensually agreed upon. Question Answer Comments Discussion of Advance Directives occurred with: Patient Does the patient have a Living Will? No Does the patient have Health Care Power of Attor jennifer? No * Full Code Date Activated Date Inactivated Comments 01/04/2019 6:51 PM 01/06/2019 7:26 PM This order r eflects the patients wishes and were consensually agreed upon. Question Answer Comments Discussion of Advance Directives occurred with: Patient * Full Code Date Activated Date Inactivated Comments 05/30/2014 1:14 PM 06/04/2014 4:45 PM This order reflects the patients wishes and were consensually agreed upon. * Full Code Date Activated Date Inactivated Comments 05/29/2014 7:03 PM 05/30/2014 6:33 AM This order reflects the patients wishes and were consensually agreed upon. Question Answer Comments Discussion of Advance Directives occurred with: Patient Does the patient have a Living Will? No Does the patient have Health Care Power of Attor jennifer? No Care Teams Medical Center Director Relationship Specialty Start Date End Date Angelo Vazquez MD [address] [place] [address] PCP - General Family Medicine 06/24/14 documented as of this encounter
--- OUTSIDE RECORDS SUMMARY | 2023-12-14 04:32 | External Medical Summary ---
Author Name Unknown Address Unknown Organization [facility] [address] [place] [address] Laboratory Report Ordering Provider Test Date Status OSITO HARP 11/26/2023 05:43:00 Final Observation Date Value Abnormality Reference (Units ) Status WBC, Total 11/26/2023 05:43:00 7.52 4.00-10.8 0 (K/uL) Final RBC 11/26/2023 05:43:00 2.51 4.50-5.25 (M/uL) Final Hemoglobin 11/26/2023 05:43:00 8.0 Below low normal 14 .0-16.8 (g/dL) Final HCT 11/26/2023 05:43:00 24.9 Below low normal 40. 0-48.4 (%) Final MCV 11/26/2023 05:43:00 99.2 82.0-99.5 (fL) Final MCH 11/26/2023 05:43:00 31.9 27.0-34.0 (pg) Final MCHC 11/26/2023 05:43:00 32.1 32.0-36.0 (g/dL) Final RDW 11/26/2023 05:43:00 14.2 11.5-15.5 (%) Final Platelets 11/26/2023 05:43:00 154 140-400 (K /uL) Final MPV 11/26/2023 05:43:00 9.2 6.6-11.1 ( fL) Final Performing Location LABORATORY [facility] [address] - [address] [place] [address]
--- OUTSIDE RECORDS SUMMARY | 2023-12-14 04:32 | External Medical Summary ---
Author Name Unknown Address Unknown Organization K01:LABORATORY [facility] - [address] [place] [address] Laboratory Report Ordering Provider Test Date Status KELLY KENNEDY 11/26/2023 05:43:00 Final Observation Date Value Abnormality Reference (Units ) Status T4, Free 11/26/2023 05:43:00 1.1 0.9-1.7 (n g/dL) Final Performing Location LAB[facility]ATORY [facility] - [address] [place] [address]
--- OUTSIDE RECORDS SUMMARY | 2023-12-14 04:32 | External Medical Summary ---
Author Name Unknown Address Unknown Organization [facility] [facility] [address] [place] [address] Laboratory Report Ordering Provider Test Date Status OSITO HARP 12/03/2023 07:27:31 Final Observation Date Value Abnormality Reference (Units ) Status BUN 12/03/2023 07:27:31 17 6-20 (mg/dL) Final Creatinine 12/03/2023 07:27:31 1.0 0.6-1.2 (mg/dL) Final Glomerular filtration rate/1.73 sq M.predicted [Volume Rate/Area] in Serum, Plasma or Blood by Creatinine-based formula (CKD-EPI) 12/03/2023 07:27:31 72 >=60 (mL/min) Final eGFR is calculated based on the CKD-EPI 2020 equation Sodium 12/03/2023 07:27:31 128 Below low normal 135 -146 (mmol/L) Final Potassium 12/03/2023 07:27:31 4.4 3.5-5.1 (m mol/L) Final Cl 12/03/2023 07:27:31 95 Below low normal 98- 107 (mmol/L) Final CO2 12/03/2023 07:27:31 23 22-32 (mmo l/L) Final Anion gap 12/03/2023 07:27:31 10 7-15 (mmol /L) Final Glucose 12/03/2023 07:27:31 106 70-120 (mg /dL) Final Calcium 12/03/2023 07:27:31 8.4 8.4-10.2 ( mg/dL) Final Performing Location LABORATORY [facility] [address] [place] [address]
--- OUTSIDE RECORDS SUMMARY | 2023-12-14 04:32 | External Medical Summary | Summary of Care ---
Author Name Unknown Organization [facility] Address [address] [place] [address] Phone [phone] Care Team Providers Care Ethanol Quality Leader Name Role Phone Angelo Vazquez MD Primary Care Provider + Reason for Visit * Reason Onset Date Comments Advice 11/09/2023 Encounter Details Date Type Department Care Team (Late st Contact Info) Description 11/09/2023 Telephone Cardiology, [place] [address] [facility] [place] [address] Melyssa Cornell Jia, [address] [place] [address] Advice Allergies Active Allergy Reactions Criticality Noted Date Comments Bee Venom 12/30/2015 Iodine Other (Please comment) 08/18/2011 Pt says not to use due to shellfish allergy Morphine Anaphylaxis High 08/18/2011 Penicillins Rash 08/18/2011 Shellfish Allergy Edema airway High 08/18/2011 documented as of this encounter (statuses as of 11/24/2023) Medications Medication Sig Dispensed Refills Start Date [...] Tablet (Lipitor)Indication s:Paroxysmal atrial fibrillation (HCC),CAD in [place] artery,S/P CABG x 3 TAKE ONE TABLET BY MOUTH DAILY 90 Tablet 3 01/20/2023 01/25/2024 Active metFORMIN HCl 500 MG Oral Tablet (Glucophage)Indicat ions:Type 2 diabetes mellitus with hemoglobin A1c goal of less than 8.0% (HCC) TAKE ONE TABLET BY MOUTH DAILY 90 Tablet 3 04/21/2023 04/20/2024 Active Nitroglycerin 0.4 MG Sublingual Tablet Sublingual (Nitrostat)Indicati ons:CAD in [place] artery DISSOLVE 1 TABLET UNDER THE TONGUE [...] as of this encounter (statuses as of 11/24/2023) Active Problems Problem Noted Date Diagnosed Date Medical home patient encounter 11/18/2023 Chronic systolic heart failure 09/27/2023 DM kidney disease 09/27/2023 Renal cyst, acquired, left 01/18/2023 Urge incontinence 01/18/2023 Well adult exam 12/03/2022 Overview: 12/01 TTE [facility] Dyspnea on exertion 11/29/2022 Spinal [...] Mild 2014 PAF (paroxysmal atrial fibrillation) 07/14/2012 longterm current use of anticoagulant therapy 0 07/14/2012 Overview: ICD-10 update of inactive term Dysthymia 11/30/2011 Coronary artery disease invo lving [place] coronary artery of [place] heart without angina pectoris Overview: 05/30/14 3V CABG [facility]. Prior: 5 stents-hx angina. Drug eluting, & bare metal. Most recent 11/18 1986 LCAD PTCA 12.04 LAD & mid circ drug eluting stents 8.08-distal RCA non drug eluting stent 11/13/10 LAD Ion drug eluting stent 01/14/11 Cardiolite EF55% no ischemia Gastroesophageal reflux disease Overview: Particles are regurgitant, some acid reflux, not much coughing Dyslipidemia documented as of this encounter (statuses as of 11/24/2023) Resolved Problems Problem Noted Date Diagnosed Date [...] as of this encounter (statuses as of 11/24/2023) Immunizations Name Administration Dates Next Due COVID-19 mRNA, LNP-s, No Pre serve, 2-Dose Series (Reach[employer]) 06/11/2021,10/09/2020,09/19/2020 Covid-19, Mrna, Lnp-s, Pf, B ivalent, 30 Mcg, IM, 12 yrs and above ([employer]achoo) 05/03/2022 H1N1 2009 Influenza, IM 06/23/2009 Pneumococcal [...] encounter Miscellaneous Notes * Telephone Encounter - Corina Freeman LPN - 11/24/2023 7:08 AM EDT Message sent to patient regarding shower question, shower restrictions, need for wound care/check and movement restrictions. * Telephone Encounter - Tessy Jones LPN - 11/15/2023 8:24 AM EDT Currently inpatient at [facility] * Telephone Encounter - Tessy Jones LPN - 11/11/2023 4:11 PM EDT Spoke with by phone. Gave date and time. was at doctors visit with Pt, asked that information sent over [facility]LastRoom/pt portal. Reminded to come in and pecan picker chlorhexidine soap. agreed. * Telephone Encounter - Tessy Jones LPN - 11/11/2023 3:28 PM EDT ELECTROPHYSIOLOGY PACEMAKER/ICD INSTRUCTIONS Please arrive at [facility] via the Main Entrance and check [...] your procedure in our Device Clinic in [facility]. Important Instructions Your surgical site is NOT [...] not hesitate to call the office at [phone] Preventing skin infections after surgery handout given * Telephone Encounter - Tessy Jones LPN - 11/11/2023 10:11 AM EDT LMOM to set up procedure. Transfer to [facility] Cardiology on return call. * Telephone Encounter [...] to patient: spouse Number to return call: [phone] Reason for call: Savannah calling in stating [...] 11/30/2023 9:20 AM EDT Office Visit Nephrology, [facility] [place] [address] Jose Winter MD 200 [facility] [place] [address] 12/26/2023 3:00 PM EDT Office Visit Cardiology, [facility] 132 [facility] [place] [address] Ewelina Poole PA-C 132 [facility] [place] [address] 01/24/2024 1:30 PM EDT Office Visit Urology, [facility] 132 [facility] [place] [address] George Tran MD 27 [facility] [address] [place] [id number] 03/13/2024 3:00 PM EDT Cardiac Studies Cardiac Studies, [facility] 132 [facility] [place] [address] Scheduled Orders Name Type Priority Associated Diagnoses [...] this encounter Medical Devices Implanted Type Area Internet Retailer Device Identifier Shelf Expiration Date Model / Serial / Lot Sut Steel 6 M654g - [id number] Implanted:Qty: 4 on 05/30/2014 by Stanislav Hilliard MD at [place] [facility] N/A: Chest JNJ : [employer] 02/07/2019 [id number] / / [id number] Marker Coronary [facility] - [id number] Implanted:Qty: 2 on 05/30/2014 by Stanislav Hilliard MD at [place] [facility] N/A: Aorta [employer] 03/10/2017 [facility] / / [id number] Lens Intraoc 20.5 - [id number] - [id number] Implanted:Qty: 1 on 02/18/2022 by Yandel Bowens MD at OR [facility] Left: Eye [employer] 11/07/2026 [id number] / [id number] / [id number] Lens Intraoc 21.5 - [id number] - [id number] Implanted:Qty: 1 on 03/04/2022 by Yandel Bowens MD at OR [facility] Right: Eye [employer] 10/08/2026 [id number] / [id number] / [id number] documented as of this encounter Visit Diagnoses [...] the patient have Health Care Power of Gate Tender? No Code Status History Code Status Date Activated Date Inactivated Comments No Code 02/18/2022 7:51 AM 02/18/2022 2:15 PM This order reflects the patients wishes and were consensually agreed upon. Question Answer Comments Discussion of Advance Directives occurred with: Patient Does the patient have a Living Will? No Does the patient have Health Care Power of Gate Tender? No Full Code 01/04/2019 6:51 PM 01/06/2019 [...] the patient have Health Care Power of Gate Tender? No Care Teams Ethanol Quality Leader Relationship Specialty Start Date End Date Angelo Vazquez MD [address] [place] [address] PCP - General Family Medicine 06/24/14 documented as of this encounter
--- OUTSIDE RECORDS SUMMARY | 2023-12-14 04:32 | External Medical Summary ---
Author Name Unknown Address Unknown Organization [id number]:[facility] [address] [place] [address] Laboratory Report Ordering Provider Test Date Status KELLY KENNEDY 11/30/2023 06:22:00 Final Observation Date Value Abnormality Reference (Units ) Status T4, Free 11/30/2023 06:22:00 1.3 0.9-1.7 (n g/dL) Final Performing Location [facility] - [address] [place] [address]
--- OUTSIDE RECORDS SUMMARY | 2023-12-14 04:32 | External Medical Summary ---
Author Name Unknown Address Unknown Organization [id number] [address] [place] [address] Laboratory Report Ordering Provider Test Date Status OSITO HARP 11/26/2023 05:43:00 Final Observation Date Value Abnormality Reference (Units ) Status BUN 11/26/2023 05:43:00 27 Above high normal 6-20 (mg/dL) Final Creatinine 11/26/2023 05:43:00 0.9 0.6-1.2 (mg/dL) Final Glomerular filtration rate/1.73 sq M.predicted [Volume Rate/Area] in Serum, Plasma or Blood by Creatinine-based formula (CKD-EPI) 11/26/2023 05:43:00 81 >=60 (mL/min) Final eGFR is calculated based on the CKD-EPI 2020 equation Sodium 11/26/2023 05:43:00 127 Below low normal 135 -146 (mmol/L) Final Potassium 11/26/2023 05:43:00 4.7 3.5-5.1 (m mol/L) Final Cl 11/26/2023 05:43:00 91 Below low normal 98- 107 (mmol/L) Final CO2 11/26/2023 05:43:00 22 22-32 (mmo l/L) Final Anion gap 11/26/2023 05:43:00 14 7-15 (mmol /L) Final Glucose 11/26/2023 05:43:00 122 Above high normal 70 -120 (mg/dL) Final Calcium 11/26/2023 05:43:00 8.8 8.4-10.2 ( mg/dL) Final Performing Location [facility]ORY [facility] [address] 0 - [address] [place] [address]
--- OUTSIDE RECORDS SUMMARY | 2023-12-14 04:32 | External Medical Summary ---
Author Name Unknown Address Unknown Organization [id number]:[facility] [place] [address] Laboratory Report Ordering Provider Test Date Status OSITO HARP 11/30/2023 06:22:00 Final Observation Date Value Abnormality Reference (Units ) Status BUN 11/30/2023 06:22:00 22 Above high normal 6-20 (mg/dL) Final Creatinine 11/30/2023 06:22:00 0.9 0.6-1.2 (mg/dL) Final Glomerular filtration rate/1.73 sq M.predicted [Volume Rate/Area] in Serum, Plasma or Blood by Creatinine-based formula (CKD-EPI) 11/30/2023 06:22:00 80 >=60 (mL/min) Final eGFR is calculated based on the CKD-EPI 2020 equation Sodium 11/30/2023 06:22:00 125 Below low normal 135 -146 (mmol/L) Final Potassium 11/30/2023 06:22:00 4.5 3.5-5.1 (m mol/L) Final Cl 11/30/2023 06:22:00 91 Below low normal 98- 107 (mmol/L) Final CO2 11/30/2023 06:22:00 23 22-32 (mmo l/L) Final Anion gap 11/30/2023 06:22:00 11 7-15 (mmol /L) Final Glucose 11/30/2023 06:22:00 112 70-120 (mg /dL) Final Calcium 11/30/2023 06:22:00 8.6 8.4-10.2 ( mg/dL) Final Performing Location [facility] [place] [address]
--- OUTSIDE RECORDS SUMMARY | 2023-12-14 04:32 | External Medical Summary ---
Author Name Unknown Address Unknown Organization [id number]:[facility] [place] [address] - [address] [place] [address] Laboratory Report Ordering Provider Test Date Status OSITO HARP 12/10/2023 07:04:32 Final Observation Date Value Abnormality Reference (Units ) Status BUN 12/10/2023 07:04:32 31 Above high normal 6-20 (mg/dL) Final Creatinine 12/10/2023 07:04:32 1.2 0.6-1.2 (mg/dL) Final Glomerular filtration rate/1.73 sq M.predicted [Volume Rate/Area] in Serum, Plasma or Blood by Creatinine-based formula (CKD-EPI) 12/10/2023 07:04:32 62 >=60 (mL/min) Final eGFR is calculated based on the CKD-EPI 2020 equation Sodium 12/10/2023 07:04:32 132 Below low normal 135 -146 (mmol/L) Final Potassium 12/10/2023 07:04:32 5.4 Above high normal 3. 5-5.1 (mmol/L) Final Cl 12/10/2023 07:04:32 98 98-107 (mm ol/L) Final CO2 12/10/2023 07:04:32 21 Below low normal 22- 32 (mmol/L) Final Anion gap 12/10/2023 07:04:32 13 7-15 (mmol /L) Final Glucose 12/10/2023 07:04:32 130 Above high normal 70 -120 (mg/dL) Final Calcium 12/10/2023 07:04:32 8.8 8.4-10.2 ( mg/dL) Final Performing Location [facility]ORY [facility] [address] - [address] [place] [address]
--- OUTSIDE RECORDS SUMMARY | 2023-12-14 04:32 | External Medical Summary ---
Author Name Unknown Address Unknown Organization [id number] - [address] [place] [address] Laboratory Report Ordering Provider Test Date Status OSITO HARP 12/03/2023 07:27:31 Final Observation Date Value Abnormality Reference (Units ) Status WBC, Total 12/03/2023 07:27:31 4.75 4.00-10.8 0 (K/uL) Final RBC 12/03/2023 07:27:31 2.46 4.50-5.25 (M/uL) Final Hemoglobin 12/03/2023 07:27:31 8.0 Below low normal 14 .0-16.8 (g/dL) Final HCT 12/03/2023 07:27:31 24.4 Below low normal 40. 0-48.4 (%) Final MCV 12/03/2023 07:27:31 99.2 82.0-99.5 (fL) Final MCH 12/03/2023 07:27:31 32.5 27.0-34.0 (pg) Final MCHC 12/03/2023 07:27:31 32.8 32.0-36.0 (g/dL) Final RDW 12/03/2023 07:27:31 15.2 11.5-15.5 (%) Final Platelets 12/03/2023 07:27:31 133 Below low normal 140 -400 (K/uL) Final MPV 12/03/2023 07:27:31 8.9 6.6-11.1 ( fL) Final Performing Location LAB[facility]ATORY [facility] [address] - [address] [place] [address]
--- OUTSIDE RECORDS SUMMARY | 2023-12-14 04:32 | External Medical Summary ---
Author Name Unknown Address Unknown Organization K09:[facility] [place] [address] Laboratory Report Ordering Provider Test Date Status OSITO HARP 12/02/2023 06:15:19 Final Observation Date Value Abnormality Reference (Units ) Status BUN 12/02/2023 06:15:19 20 6-20 (mg/dL) Final Creatinine 12/02/2023 06:15:19 1.0 0.6-1.2 (mg/dL) Final Glomerular filtration rate/1.73 sq M.predicted [Volume Rate/Area] in Serum, Plasma or Blood by Creatinine-based formula (CKD-EPI) 12/02/2023 06:15:19 72 >=60 (mL/min) Final eGFR is calculated based on the CKD-EPI 2020 equation Sodium 12/02/2023 06:15:19 128 Below low normal 135 -146 (mmol/L) Final Potassium 12/02/2023 06:15:19 5.4 Above high normal 3. 5-5.1 (mmol/L) Final Cl 12/02/2023 06:15:19 94 Below low normal 98- 107 (mmol/L) Final CO2 12/02/2023 06:15:19 22 22-32 (mmo l/L) Final Anion gap 12/02/2023 06:15:19 12 7-15 (mmol /L) Final Glucose 12/02/2023 06:15:19 118 70-120 (mg /dL) Final Calcium 12/02/2023 06:15:19 9.0 8.4-10.2 ( mg/dL) Final Performing Location [facility] [place] [address]
--- OUTSIDE RECORDS SUMMARY | 2023-12-14 04:32 | External Medical Summary ---
Author Name Unknown Address Unknown Organization K09:[facility] [place] [address] Laboratory Report Ordering Provider Test Date Status OSITO HARP 11/30/2023 06:22:00 Final Observation Date Value Abnormality Reference (Units ) Status WBC, Total 11/30/2023 06:22:00 5.83 4.00-10.8 0 (K/uL) Final RBC 11/30/2023 06:22:00 2.41 4.50-5.25 (M/uL) Final Hemoglobin 11/30/2023 06:22:00 7.7 Below low normal 14 .0-16.8 (g/dL) Final HCT 11/30/2023 06:22:00 23.7 Below low normal 40. 0-48.4 (%) Final MCV 11/30/2023 06:22:00 98.3 82.0-99.5 (fL) Final MCH 11/30/2023 06:22:00 32.0 27.0-34.0 (pg) Final MCHC 11/30/2023 06:22:00 32.5 32.0-36.0 (g/dL) Final RDW 11/30/2023 06:22:00 14.6 11.5-15.5 (%) Final Platelets 11/30/2023 06:22:00 135 Below low normal 140 -400 (K/uL) Final MPV 11/30/2023 06:22:00 9.2 6.6-11.1 ( fL) Final Performing Location [facility] [place] [address]
--- OUTSIDE RECORDS SUMMARY | 2023-12-14 04:32 | External Medical Summary ---
Author Name Unknown Address Unknown Organization K01:LAB[facility] - [address] [place] [address] Laboratory Report Ordering Provider Test Date Status KELLY KENNEDY 11/26/2023 05:43:00 Final Observation Date Value Abnormality Reference (Units ) Status TSH 11/26/2023 05:43:00 7.01 Above high normal 0. 27-4.20 (uIU/mL) Final Performing Location [facility] - [address] [place] [address]
--- OUTSIDE RECORDS SUMMARY | 2023-12-14 04:33 | External Medical Summary | Summary of Care ---
Author Name Unknown Organization [facility] Address [address] [facility] [place] [address] Phone [phone] Care Team Providers Care Search Coordinator Name Role Phone Angelo Vazquez MD Primary Care Provider + Encounter Details Date Type Department Care Team (Late st Contact Info) Description 11/17/2023 Result Scan Unspecified Department <No scans attached> Allergies Active Allergy Reactions Criticality Noted Date Comments Bee Venom 12/30/2015 Iodine Other (Please comment) 08/18/2011 Pt says not to use due to shellfish allergy Morphine Anaphylaxis High 08/18/2011 Penicillins Rash 08/18/2011 Shellfish Allergy Edema airway High 08/18/2011 documented as of this encounter (statuses as of 11/18/2023) Medications Medication Sig Dispensed Refills Start Date [...] Tablet (Lipitor)Indication s:Paroxysmal atrial fibrillation (HCC),CAD in [place] artery,S/P CABG x 3 TAKE ONE TABLET BY MOUTH DAILY 90 Tablet 3 01/20/2023 01/25/2024 Active metFORMIN HCl 500 MG Oral Tablet (Glucophage)Indicat ions:Type 2 diabetes mellitus with hemoglobin A1c goal of less than 8.0% (HCC) TAKE ONE TABLET BY MOUTH DAILY 90 Tablet 3 04/21/2023 04/20/2024 Active Nitroglycerin 0.4 MG Sublingual Tablet Sublingual (Nitrostat)Indicati ons:CAD in [place] artery DISSOLVE 1 TABLET UNDER THE TONGUE [...] as of this encounter (statuses as of 11/18/2023) Active Problems Problem Noted Date Diagnosed Date [...] Mild 2014 PAF (paroxysmal atrial fibrillation) 07/14/2012 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 DM kidney disease 01/09/2019 02/08/2023 Leg mass 03/31/2016 06/07/2023 Overview: 04/25 cystic on US-silvadewey Hdz Dermatitis 07/24/2014 06/07/2023 Regurgitation and rechewing [...] as of this encounter (statuses as of 11/18/2023) Immunizations Name Administration Dates Next Due COVID-19 mRNA, LNP-s, No Pre serve, 2-Dose Series (ahoy[employer]) 06/11/2021,10/09/2020,09/19/2020 Covid-19, Mrna, Lnp-s, Pf, B ivalent, 30 Mcg, IM, 12 yrs and above ([employer]oyDoc) 05/03/2022 H1N1 2009 Influenza, IM 06/23/2009 Pneumococcal [...] 11/30/2023 9:20 AM EDT Office Visit Nephrology, [facility] [address] [place] [address] Jose Winter MD [address] [place] [address] 12/26/2023 3:00 PM EDT Office Visit Cardiology, [facility] [address] [place] [address] Ewelina Poole PA-C [address] [place] [address] 01/24/2024 1:30 PM EDT Office Visit Urology, [facility] [address] [place] [address] George Tran MD [address] [place] [address] [place] [address] 03/13/2024 3:00 PM EDT Cardiac Studies Cardiac Studies, [facility] [address] [place] [address] Health Maintenance Due Date [...] this encounter Medical Devices Implanted Type Area Bridge Painter Helper Device Identifier Shelf Expiration Date Model / Serial / Lot Sut Steel 6 M654g - [id number] Implanted:Qty: 4 on 05/30/2014 by [place]islav [place] [facility]: Chest JNJ : [employer] 02/07/2019 M654G / / [id number] Marker Coronary [facility] - [id number] Implanted:Qty: 2 on 05/30/2014 by Stanislav Hilliard [place] [facility] [place]/A: Aorta [employer] 03/10/2017 [facility] / / [id number] Lens Intraoc 20.5 - [id number] - [id number] Implanted:Qty: 1 on 02/18/2022 by Yandel Bowens MD at OR [facility] Left: Eye [employer] 11/07/2026 [id number] / [id number] / [id number] Lens Intraoc 21.5 - [id number] - [id number] Implanted:Qty: 1 on 03/04/2022 by Yandel Bowens MD at OR [facility] Right: Eye [employer] 10/08/2026 [id number] / [id number] / [id number] documented as of this encounter Procedures Procedure Name Priority Date/Time Associated Diagnosis Comments ECHOCARDIOLOGY SCANNED RESULT 11/17/2023 documented in this encounter Results * ECHOCARDIOLOGY SCANNED RESULT (11/17/2023) 11/17/2023 No Physician Data Unknown ECHOCARDIOLOGY documented in this encounter Advance Directives Latest Code Status on File Code Status Date Activated Date Inactivated Comments No Code 03/04/2022 8:43 AM 03/04/2022 2:28 PM This order reflects the patients wishes and were consensually agreed upon. Question Answer Comments Discussion of Advance Directives occurred with: Patient Does the patient have a Living Will? No Does the patient have Health Care Power of Bioinformatics Associate? No Code Status History Code Status Date Activated Date Inactivated Comments No Code 02/18/2022 7:51 AM 02/18/2022 2:15 PM This order reflects the patients wishes and were consensually agreed upon. Question Answer Comments Discussion of Advance Directives occurred with: Patient Does the patient have a Living Will? No Does the patient have Health Care Power of Bioinformatics Associate? No Full Code 01/04/2019 6:51 PM 01/06/2019 [...] the patient have Health Care Power of Bioinformatics Associate? No Care Teams Search Coordinator Relationship Specialty Start Date End Date Angelo Vazquez MD 132 [facility] [place] [address] PCP - General Family Medicine 06/24/14 documented as of this encounter
--- OUTSIDE RECORDS SUMMARY | 2023-12-14 04:33 | External Medical Summary ---
Author Name Unknown Address Unknown Organization K0G[facility] - [address] [place] [address] Laboratory Report Ordering Provider Test Date Status OSITO HARP 11/19/2023 06:45:00 Final Observation Date Value Abnormality Reference (Units ) Status WBC, Total 11/19/2023 06:45:00 8.00 4.00-10.8 0 (K/uL) Final RBC 11/19/2023 06:45:00 2.58 4.50-5.25 (M/uL) Final Hemoglobin 11/19/2023 06:45:00 8.2 Below low normal 14 .0-16.8 (g/dL) Final HCT 11/19/2023 06:45:00 24.9 Below low normal 40. 0-48.4 (%) Final MCV 11/19/2023 06:45:00 96.5 82.0-99.5 (fL) Final MCH 11/19/2023 06:45:00 31.8 27.0-34.0 (pg) Final MCHC 11/19/2023 06:45:00 32.9 32.0-36.0 (g/dL) Final RDW 11/19/2023 06:45:00 13.6 11.5-15.5 (%) Final Platelets 11/19/2023 06:45:00 147 140-400 (K /uL) Final MPV 11/19/2023 06:45:00 9.0 6.6-11.1 ( fL) Final Performing Location LABORATORY [facility] [address] - [address] [place] [address]
--- OUTSIDE RECORDS SUMMARY | 2023-12-14 04:33 | External Medical Summary | Summary of Care ---
Author Name Unknown Organization [facility] Address [address] [place] [address] Phone [phone] Care Team Providers Care Packing Line Worker Name Role Phone Angelo Vazquez MD Primary Care Provider + Reason for Visit * Reason Onset Date Comments Advice 11/14/2023 Encounter Details Date Type Department Care Team (Late st Contact Info) Description 11/14/2023 Telephone Cardiology, [place] [address] [facility] [place] [address] Melyssa [facility] [address] [place] [address] Advice Allergies Active Allergy Reactions Criticality Noted Date Comments Bee Venom 12/30/2015 Iodine Other (Please comment) 08/18/2011 Pt says not to use due to shellfish allergy Morphine Anaphylaxis High 08/18/2011 Penicillins Rash 08/18/2011 Shellfish Allergy Edema airway High 08/18/2011 documented as of this encounter (statuses as of 11/15/2023) Medications Medication Sig Dispensed Refills Start Date [...] Tablet (Lipitor)Indication s:Paroxysmal atrial fibrillation (HCC),CAD in [place] artery,S/P CABG x 3 TAKE ONE TABLET BY MOUTH DAILY 90 Tablet 3 01/20/2023 01/25/2024 Active metFORMIN HCl 500 MG Oral Tablet (Glucophage)Indicat ions:Type 2 diabetes mellitus with hemoglobin A1c goal of less than 8.0% (HCC) TAKE ONE TABLET BY MOUTH DAILY 90 Tablet 3 04/21/2023 04/20/2024 Active Nitroglycerin 0.4 MG Sublingual Tablet Sublingual (Nitrostat)Indicati ons:CAD in [place] artery DISSOLVE 1 TABLET UNDER THE TONGUE [...] as of this encounter (statuses as of 11/15/2023) Active Problems Problem Noted Date Diagnosed Date [...] Mild 2014 PAF (paroxysmal atrial fibrillation) 07/14/2012 prison current use of anticoagulant therapy 0 07/14/2012 Overview: ICD-10 update of inactive term Dysthymia 11/30/2011 Coronary artery disease invo lving [place] coronary artery of [place] heart without angina pectoris Overview: 05/30/14 3V CABG [facility] [place]. Prior: 5 stents-hx angina. [...] as of this encounter (statuses as of 11/15/2023) Resolved Problems Problem Noted Date Diagnosed Date [...] as of this encounter (statuses as of 11/15/2023) Immunizations Name Administration Dates Next Due COVID-19 mRNA, LNP-s, No Pre serve, 2-Dose Series (Zuki) 06/11/2021,10/09/2020,09/19/2020 Covid-19, Mrna, Lnp-s, Pf, B ivalent, 30 Mcg, IM, 12 yrs and above (Zuki) 05/03/2022 H1N1 2008 Influenza, IM 06/23/2009 Pneumococcal [...] encounter Miscellaneous Notes * Telephone Encounter - Josi Fuentes OSA - 11/15/2023 8:26 AM EDT Mike Still is admitted and did break his hip. I did cancel the 12/05 appt for the 1 month return w/ Dr Hendrix. will call back when able to reschedule. Thank you, GRUPO Willis * Telephone Encounter - Tessy Jones LPN - 11/15/2023 8:23 AM EDT Currently inpatient at [facility]. * Telephone Encounter - Tessy Jones LPN - 11/14/2023 12:00 PM EDT Spoke with , did not go to ED. Pt has appointment today at 1:45pm * Telephone Encounter - Tessy Jones LPN - 11/14/2023 10:16 AM EDT Attempted to reach by phone to gather more information regarding fall, post visit with PCP today. Was pt seen at ED? Did pt have any fractures? * Telephone Encounter - Karyn Gallagher RN - 11/14/2023 8:55 AM EDT Consulting EP. Routed to EP pool. Karyn Gallagher RN * Telephone Encounter - Larissa Arrington OSA - 11/14/2023 8:46 AM EDT Person calling: Savannah Relationship to patient: Number to return call: [phone] Reason for call: Labs for the pacemaker procedure on 11/15, having them today. 2. Fell last night and unable to put weight on his right leg. Seeing a family doctor today. Is it still ok to move forward with the procedure Tuesday? Pharmacy: n/a Provider Name: Kraig documented in this encounter Plan of Treatment Upcoming Encounters Date Type Department Care Team (Late st Contact Info) Description 11/30/2023 9:20 AM EDT Office Visit Nephana, [facility] [address] [place] [address] [address] Jose Winter MD [address] [place] [address] 12/26/2023 3:00 PM EDT Office Visit Cardiology, [facility] [address] [facility] [place] [address] Ewelina Poole PA-C [address] [place] [address] 01/24/2024 1:30 PM EDT Office Visit Urology, [facility] [address] [facility] [place] [address] George Tran MD [address] [facility] [address] [place] [address] 03/13/2024 3:00 PM EDT Cardiac Studies Cardiac Studies, [facility] [address] [facility] [place] [address] Health Maintenance Due Date Last Done Comments [...] this encounter Medical Devices Implanted Type Area Review Rn Device Identifier Shelf Expiration Date Model / Serial / Lot Sut Steel 6 M654g - [id number] Implanted:Qty: 4 on 05/30/2014 by Stanislav Hilliard MD at OR [facility] [place] N/A: Chest JNJ : [employer] 02/07/2019 M654G / / [id number] Marker Coronary [facility] - [id number] Implanted:Qty: 2 on 05/30/2014 by Stanislav Hilliard MD at OR [facility] [place] N/A: Aorta [employer] 03/10/2017 [facility] / / [id number] Lens Intraoc 20.5 - [id number] - [id number] Implanted:Qty: 1 on 02/18/2022 by Yandel Bowens MD at OR [facility] Left: Eye [employer]OM[employer] 11/07/2026 [id number] / [id number] / [id number] Lens Intraoc 21.5 - [id number] - [id number] Implanted:Qty: 1 on 03/04/2022 by Yandel Bowens MD at OR [facility] Right: Eye [employer]OM[employer] 10/08/2026 [id number] / [id number] / [id number] documented as of this encounter Advance Directives [...] the patient have Health Care Power of Sheet Metal Insulator? No Code Status History Code Status Date Activated Date Inactivated Comments No Code 02/18/2022 7:51 AM 02/18/2022 2:15 PM This order reflects the patients wishes and were consensually agreed upon. Question Answer Comments Discussion of Advance Directives occurred with: Patient Does the patient have a Living Will? No Does the patient have Health Care Power of Sheet Metal Insulator? No Full Code 01/04/2019 6:51 PM 01/06/2019 [...] the patient have Health Care Power of Sheet Metal Insulator? No Care Teams Packing Line Worker Relationship Specialty Start Date End Date Angelo Vazquez MD [address] [place] [address] PCP - General Family Medicine 06/24/14 documented as of this encounter
--- OUTSIDE RECORDS SUMMARY | 2023-12-14 04:33 | External Medical Summary ---
Author Name Unknown Address Unknown Organization [id number]:[facility] [address] Laboratory Report Ordering Provider Test Date Status HY,DEPAMPHILIS 11/21/2023 06:54:24 Final Observation Date Value Abnormality Reference (Units ) Status BUN 11/21/2023 06:54:24 50 Above high normal 6-20 (mg/dL) Final Creatinine 11/21/2023 06:54:24 1.0 0.6-1.2 (mg/dL) Final Glomerular filtration rate/1.73 sq M.predicted [Volume Rate/Area] in Serum, Plasma or Blood by Creatinine-based formula (CKD-EPI) 11/21/2023 06:54:24 70 >=60 (mL/min) Final eGFR is calculated based on the CKD-EPI 2020 equation Sodium 11/21/2023 06:54:24 128 Below low normal 135 -146 (mmol/L) Final Potassium 11/21/2023 06:54:24 4.6 3.5-5.1 (m mol/L) Final Cl 11/21/2023 06:54:24 92 Below low normal 98- 107 (mmol/L) Final CO2 11/21/2023 06:54:24 26 22-32 (mmo l/L) Final Anion gap 11/21/2023 06:54:24 10 7-15 (mmol /L) Final Glucose 11/21/2023 06:54:24 112 70-120 (mg /dL) Final Calcium 11/21/2023 06:54:24 8.4 8.4-10.2 ( mg/dL) Final Performing Location [facility] [address]
--- OUTSIDE RECORDS SUMMARY | 2023-12-14 04:33 | External Medical Summary | Summary of Care ---
Author Name Unknown Organization [facility] Address [address] [place] [address] Phone [phone] Care Team Providers Care Hydrodynamics Teacher Name Role Phone Angelo Vazquez MD Primary Care Provider + Encounter Details Date Type Department Care Team (Late st Contact Info) Description 11/16/2023 Result Scan Unspecified Department Melyssa Cornell, DO [address] [place] [id number] <No scans attached> Allergies Active Allergy Reactions Criticality Noted Date Comments Bee Venom 12/30/2015 Iodine Other (Please comment) 08/18/2011 Pt says not to use due to shellfish allergy Morphine Anaphylaxis High 08/18/2011 Penicillins Rash 08/18/2011 Shellfish Allergy Edema airway High 08/18/2011 documented as of this encounter (statuses as of 11/21/2023) Medications Medication Sig Dispensed Refills Start Date [...] Tablet (Lipitor)Indication s:Paroxysmal atrial fibrillation (HCC),CAD in [place] artery,S/P CABG x 3 TAKE ONE TABLET BY MOUTH DAILY 90 Tablet 3 01/20/2023 01/25/2024 Active metFORMIN HCl 500 MG Oral Tablet (Glucophage)Indicat ions:Type 2 diabetes mellitus with hemoglobin A1c goal of less than 8.0% (HCC) TAKE ONE TABLET BY MOUTH DAILY 90 Tablet 3 04/21/2023 04/20/2024 Active Nitroglycerin 0.4 MG Sublingual Tablet Sublingual (Nitrostat)Indicati ons:CAD in [place] artery DISSOLVE 1 TABLET UNDER THE TONGUE [...] as of this encounter (statuses as of 11/21/2023) Active Problems Problem Noted Date Diagnosed Date Medical home patient encounter 11/18/2023 Chronic systolic heart failure 09/27/2023 DM kidney disease 09/27/2023 Renal cyst, acquired, left 01/18/2023 Urge incontinence 01/18/2023 Well adult exam 12/03/2022 Overview: 12/01 [facility] Dyspnea on exertion 11/29/2022 Spinal stenosis of [...] Mild 2014 PAF (paroxysmal atrial fibrillation) 07/14/2012 long term acute care registered nurse current use of anticoagulant therapy 0 07/14/2012 Overview: ICD-10 update of inactive term Dysthymia 11/30/2011 Coronary artery disease invo lving [place] coronary artery of [place] heart without angina pectoris Overview: 05/30/14 3V CABG [facility]. Prior: 5 stents-hx angina. Drug eluting, & bare metal. Most recent 11/18 1986 LCAD PTCA 12.04 LAD & mid circ drug eluting stents 8.08-distal RCA non drug eluting stent 11/13/10 LAD Ion drug eluting stent 01/14/11 Cardiolite EF55% no ischemia Gastroesophageal reflux disease Overview: Particles are regurgitant, some acid reflux, not much coughing Dyslipidemia documented as of this encounter (statuses as of 11/21/2023) Resolved Problems Problem Noted Date Diagnosed Date [...] as of this encounter (statuses as of 11/21/2023) Immunizations Name Administration Dates Next Due COVID-19 mRNA, LNP-s, No Pre serve, 2-Dose Series (Aeromot) 06/11/2021,10/09/2020,09/19/2020 Covid-19, Mrna, Lnp-s, Pf, B ivalent, 30 Mcg, IM, 12 yrs and above (Aeromot) 05/03/2022 H1N1 2009 Influenza, IM 06/23/2009 Pneumococcal [...] 11/30/2023 9:20 AM EDT Office Visit Nephrology, [facility] [address] [place] [address] Jose Winter MD [address] [place] [address] 12/26/2023 3:00 PM EDT Office Visit Cardiology, [facility] [address] [place] [address] Ewelina Poole PA-C [address] [place] [address] 01/24/2024 1:30 PM EDT Office Visit Urology, [facility] [address] [facility] [place] [address] George Tran MD 27 [facility] [address] [place] [address] 03/13/2024 3:00 PM EDT Cardiac Studies Cardiac Studies, [facility] [address] [facility] [place] [address] Health Maintenance Due Date Last Done Comments [...] this encounter Medical Devices Implanted Type Area Analog Device Designer Device Identifier Shelf Expiration Date Model / Serial / Lot Sut Steel 6 M654g - [id number] Implanted:Qty: 4 on 05/30/2014 by Stanislav Hilliard MD at OR [facility] N/A: Chest JNJ : [employer] 02/07/2019 M654G / / [id number] Marker Coronary [facility] - [id number] Implanted:Qty: 2 on 05/30/2014 by Stanislav Hilliard MD at OR [facility] N/A: Aorta [employer] 03/10/2017 [facility] / / [id number] Lens Intraoc 20.5 - [id number] - [id number] Implanted:Qty: 1 on 02/18/2022 by Yandel Bowens MD at OR [facility] Left: Eye [employer]OM[employer] 11/07/2026 [id number] / [id number] / [id number] Lens Intraoc 21.5 - [id number] - [id number] Implanted:Qty: 1 on 03/04/2022 by Yandel Bowens MD at OR [facility] Right: Eye [employer]OM[employer] 10/08/2026 [id number] / [id number] / [id number] documented as of this encounter Procedures Procedure Name Priority Date/Time Associated Diagnosis Comments RADIOLOGY SCANNED RESULT 11/16/2023 RADIOLOGY SCANNED RESULT 11/16/2023 documented in this encounter Results * RADIOLOGY SCANNED RESULT (11/16/2023) 11/16/2023 Melyssa Cornell DO DIAGNOSTIC [facility] * RADIOLOGY SCANNED RESULT (11/16/2023) 11/16/2023 Melyssa Cornell DO DIAGNOSTIC RADI [facility]LOGY SERVICES documented in this encounter Advance Directives Latest Code Status on File Code Status Date Activated Date Inactivated Comments No Code 03/04/2022 8:43 AM 03/04/2022 2:28 PM This order reflects the patients wishes and were consensually agreed upon. Question Answer Comments Discussion of Advance Directives occurred with: Patient Does the patient have a Living Will? No Does the patient have Health Care Power of Completions Manager? No Code Status History Code Status Date Activated Date Inactivated Comments No Code 02/18/2022 7:51 AM 02/18/2022 2:15 PM This order reflects the patients wishes and were consensually agreed upon. Question Answer Comments Discussion of Advance Directives occurred with: Patient Does the patient have a Living Will? No Does the patient have Health Care Power of Completions Manager? No Full Code 01/04/2019 6:51 PM [...] the patient have Health Care Power of Completions Manager? No Care Teams Hydrodynamics Teacher Relationship Specialty Start Date End Date Angelo Vazquez MD [address] [place] [address] PCP - General Family Medicine 06/24/14 documented as of this encounter
--- OUTSIDE RECORDS SUMMARY | 2023-12-14 04:33 | External Medical Summary ---
Author Name Unknown Address Unknown Organization K09:[facility] [place] [address] Laboratory Report Ordering Provider Test Date Status EVANS LARSON 11/24/2023 06:22:24 Final Observation Date Value Abnormality Reference (Units ) Status BUN 11/24/2023 06:22:24 26 Above high normal 6-20 (mg/dL) Final Creatinine 11/24/2023 06:22:24 0.9 0.6-1.2 (mg/dL) Final Glomerular filtration rate/1.73 sq M.predicted [Volume Rate/Area] in Serum, Plasma or Blood by Creatinine-based formula (CKD-EPI) 11/24/2023 06:22:24 84 >=60 (mL/min) Final eGFR is calculated based on the CKD-EPI 2020 equation Sodium 11/24/2023 06:22:24 128 Below low normal 135 -146 (mmol/L) Final Potassium 11/24/2023 06:22:24 4.7 3.5-5.1 (m mol/L) Final Cl 11/24/2023 06:22:24 92 Below low normal 98- 107 (mmol/L) Final CO2 11/24/2023 06:22:24 26 22-32 (mmo l/L) Final Anion gap 11/24/2023 06:22:24 10 7-15 (mmol /L) Final Glucose 11/24/2023 06:22:24 112 70-120 (mg /dL) Final Calcium 11/24/2023 06:22:24 8.7 8.4-10.2 ( mg/dL) Final Performing Location [facility] [place] [address]
--- OUTSIDE RECORDS SUMMARY | 2023-12-14 04:33 | External Medical Summary ---
Author Name Unknown Address Unknown Organization K0G:[facility] [address] [place] [address] Laboratory Report Ordering Provider Test Date Status OSITO HARP 11/19/2023 06:45:00 Final Observation Date Value Abnormality Reference (Units ) Status BUN 11/19/2023 06:45:00 44 Above high normal 6-20 (mg/dL) Final Creatinine 11/19/2023 06:45:00 0.9 0.6-1.2 (mg/dL) Final Glomerular filtration rate/1.73 sq M.predicted [Volume Rate/Area] in Serum, Plasma or Blood by Creatinine-based formula (CKD-EPI) 11/19/2023 06:45:00 83 >=60 (mL/min) Final eGFR is calculated based on the CKD-EPI 2020 equation Sodium 11/19/2023 06:45:00 128 Below low normal 135 -146 (mmol/L) Final Potassium 11/19/2023 06:45:00 5.5 Above high normal 3. 5-5.1 (mmol/L) Final Cl 11/19/2023 06:45:00 93 Below low normal 98- 107 (mmol/L) Final CO2 11/19/2023 06:45:00 26 22-32 (mmo l/L) Final Anion gap 11/19/2023 06:45:00 9 7-15 (mmol /L) Final Glucose 11/19/2023 06:45:00 121 Above high normal 70 -120 (mg/dL) Final Calcium 11/19/2023 06:45:00 9.1 8.4-10.2 ( mg/dL) Final Performing Location [facility] [address] [place] [address]
--- OUTSIDE RECORDS SUMMARY | 2023-12-14 04:33 | External Medical Summary | Summary of Care ---
Author Name Unknown Organization [facility] Address [address] [place] [address] Phone [phone] Care Team Providers Care Manager Mail Name Role Phone Angelo Vazquez MD Primary Care Provider + Reason for Visit * Reason Onset Date Comments Hospital Follow-Up 11/22/2023 Encounter Details Date Type Department Care Team (Late st Contact Info) Description 11/22/2023 Telephone General Internal Medicine [facility] [address] [place] [address] Angelo Vazquez MD [address] [place] [address] Hospital Follow-Up Allergies Active Allergy Reactions Criticality Noted Date Comments Bee Venom 12/30/2015 Iodine Other (Please comment) 08/18/2011 Pt says not to use due to shellfish allergy Morphine Anaphylaxis High 08/18/2011 Penicillins Rash 08/18/2011 Shellfish Allergy Edema airway High 08/18/2011 documented as of this encounter (statuses as of 11/23/2023) Medications Medication Sig Dispensed Refills Start Date [...] Tablet (Lipitor)Indication s:Paroxysmal atrial fibrillation (HCC),CAD in [place] artery,S/P CABG x 3 TAKE ONE TABLET BY MOUTH DAILY 90 Tablet 3 01/20/2023 01/25/2024 Active metFORMIN HCl 500 MG Oral Tablet (Glucophage)Indicat ions:Type 2 diabetes mellitus with hemoglobin A1c goal of less than 8.0% (HCC) TAKE ONE TABLET BY MOUTH DAILY 90 Tablet 3 04/21/2023 04/20/2024 Active Nitroglycerin 0.4 MG Sublingual Tablet Sublingual (Nitrostat)Indicati ons:CAD in [place] artery DISSOLVE 1 TABLET UNDER THE TONGUE [...] as of this encounter (statuses as of 11/23/2023) Active Problems Problem Noted Date Diagnosed Date Medical home patient encounter 11/18/2023 Chronic systolic heart failure 09/27/2023 DM kidney disease 09/27/2023 Renal cyst, acquired, left 01/18/2023 Urge incontinence 01/18/2023 Well adult exam 12/03/2022 Overview: 12/[address] [facility] Dyspnea on exertion 11/29/2022 Spinal stenosis [...] Dysthymia 11/30/2011 Coronary artery disease invo lving [place] coronary artery of [place] heart without angina pectoris Overview: 05/30/14 3V [...] as of this encounter (statuses as of 11/23/2023) Resolved Problems Problem Noted Date Diagnosed Date [...] as of this encounter (statuses as of 11/23/2023) Immunizations Name Administration Dates Next Due COVID-19 mRNA, LNP-s, No Pre serve, 2-Dose Series ([email or web address]) 06/11/2021,10/09/2020,09/19/2020 Covid-19, Mrna, Lnp-s, Pf, B ivalent, 30 Mcg, IM, 12 yrs and above ([email or web address]) 05/03/2022 H1N1 2009 Influenza, IM 06/23/2009 Pneumococcal [...] encounter Miscellaneous Notes * Telephone Encounter - Deanna Anderson LPN - 11/23/2023 11:29 AM EDT Labs placed in [place] [employer] system Sent to [facility] * Telephone Encounter - Polo Colin RN - 11/22/2023 12:06 PM EDT Patient discharged to [facility] 11/18/[address] [facility]. Nephrology consulted for SIADH. Dr Badillo recommends hospital d/[place] visit w/ [place] [facility] [place] after d/c with renal nurse toorder bmp, serum and urine osms, urine electrolytes to be done no more than 48 hrs before visit. Please assist with these recommendations. Thank you documented in this encounter Plan of Treatment Upcoming Encounters Date Type Department Care Team (Late st Contact Info) Description 11/30/2023 9:20 AM EDT Office Visit Nephrology, [facility] [address] [place] [address] Jose Winter MD [address] [place] [address] 12/26/2023 3:00 PM EDT Office Visit Cardiology, [facility] 132 [facility] [place] [address] Ewelina Poole PA-C 132 [facility] [place] [address] 01/24/2024 1:30 PM EDT Office Visit Urology, [facility] 132 [facility] [place] [address] George Tran MD [address] [place] [address] [place] [address] 03/13/2024 3:00 PM EDT Cardiac Studies Cardiac Studies, [facility] [address] [facility] [place] [address] Scheduled Orders Name Type Priority Associated Diagnoses Orde r Schedule BASIC METABOLIC PANEL Lab Routine SIADH (syndrome of inappropriate ADH production) ([facility]) Expected: 11/23/2023 (Approximate), Expires: 11/22/2024 OSMOLALITY, SERUM Lab Routine SIADH (syndrome of inappropriate ADH production) ([facility]) Expected: 11/23/2023 (Approximate), Expires: 11/22/2024 OSMOLALITY, URINE Lab Routine SIADH (syndrome of inappropriate ADH production) ([facility]) Expected: 11/23/2023 (Approximate), Expires: 11/22/2024 ELECTROLYTES, RANDOM URINE Lab Routine SIADH (syndrome of inappropriate ADH production) ([facility]) Expected: 11/23/2023 (Approximate), Expires: 11/22/2024 Health Maintenance Due Date Last Done Comments [...] this encounter Medical Devices Implanted Type Area Underwriter Device Identifier Shelf Expiration Date Model / Serial / Lot Sut Steel 6 M654g - [id number] Implanted:Qty: 4 on 05/30/2014 by Stanislav Hilliard MD at [place] [facility] N/A: Chest JNJ : [employer] 02/07/2019 M654G / / [id number] Marker Coronary [facility] - [id number] Implanted:Qty: 2 on 05/30/2014 by Stanislav Hilliard MD at OR [facility] N/A: Aorta [employer] 03/10/2017 [facility] / / [id number] Lens Intraoc 20.5 - [id number] - [id number] Implanted:Qty: 1 on 02/18/2022 by Yandel Bowens MD at OR [facility] Left: Eye [employer] 11/07/2026 [id number] / [id number] / [id number] Lens Intraoc 21.5 - [id number] - [id number] Implanted:Qty: 1 on 03/04/2022 by Yandel Bowens MD at OR [facility] Right: Eye [employer] 10/08/2026 [id number] / [id number] / [id number] documented as of this encounter Visit Diagnoses Diagnosis SIADH (syndrome of inappropriate ADH production) ([facility])- Primary Other disorders of neurohypophysis documented in this [...] have Health Care Power of Human Resource Internship? No Code Status History Code Status Date Activated Date Inactivated Comments No Code 02/18/2022 7:51 AM 02/18/2022 2:15 PM This order reflects the patients wishes and were consensually agreed upon. Question Answer Comments Discussion of Advance Directives occurred with: Patient Does the patient have a Living Will? No Does the patient have Health Care Power of Human Resource Internship? No Full Code 01/04/2019 6:51 PM 01/06/2019 [...] have Health Care Power of Human Resource Internship? No Care Teams Manager Mail Relationship Specialty Start Date End Date Angelo Vazquez MD [address] [place] [address] PCP - General Family Medicine 06/24/14 documented as of this encounter
--- OUTSIDE RECORDS SUMMARY | 2023-12-14 04:33 | External Medical Summary | Summary of Care ---
Author Name Unknown Organization [facility] Address [address] [place] [address] Phone [phone] Care Team Providers Care Space And Missile Defense Operations Name Role Phone Angelo Vazquez MD Primary Care Provider + Reason for Visit * Reason Onset Date Comments Advice 11/09/2023 Encounter Details Date Type Department Care Team (Late st Contact Info) Description 11/09/2023 Telephone Cardiology, [place] [address] [facility] [place] [address] Melyssa Cornell Jia, [address] [place] [address] Advice Allergies Active Allergy Reactions Criticality [...] Tablet (Lipitor)Indication s:Paroxysmal atrial fibrillation (HCC),CAD in [place] artery,S/P CABG x 3 TAKE ONE TABLET BY MOUTH DAILY 90 Tablet 3 01/20/2023 01/25/2024 Active metFORMIN HCl 500 MG Oral Tablet (Glucophage)Indicat ions:Type 2 diabetes mellitus with hemoglobin A1c goal of less than 8.0% (HCC) TAKE ONE TABLET BY MOUTH DAILY 90 Tablet 3 04/21/2023 04/20/2024 Active Nitroglycerin 0.4 MG Sublingual Tablet Sublingual (Nitrostat)Indicati ons:CAD in [place] artery DISSOLVE 1 TABLET UNDER THE TONGUE [...] Well adult exam 12/03/2022 Overview: 12/01 TTE [facility] Dyspnea on exertion 11/29/2022 Spinal [...] Dysthymia 11/30/2011 Coronary artery disease invo lving [place] coronary artery of [place] heart without angina pectoris Overview: 05/30/14 3V CABG [facility] Prior: 5 stents-hx angina. Drug [...] mRNA, LNP-s, No Pre serve, 2-Dose Series (Labtiva) 06/11/2021,10/09/2020,09/19/2020 Covid-19, Mrna, Lnp-s, Pf, B ivalent, 30 Mcg, IM, 12 yrs and above (Labtiva) 05/03/2022 H1N1 2009 Influenza, IM 06/23/2009 Pneumococcal [...] 11/15/2023 8:24 AM EDT Currently inpatient at [facility] * Telephone Encounter - Tessy Jones LPN - 11/11/2023 4:11 PM EDT Spoke with by phone. Gave date and time. was at doctors visit with Pt, asked that information sent over [employer]/pt portal. Reminded to come in and lemon picker chlorhexidine soap. agreed. * Telephone Encounter - Tessy JonesRUBIA - 11/11/2023 3:28 PM EDT ELECTROPHYSIOLOGY PACEMAKER/ICD INSTRUCTIONS Please arrive at [facility] via the Main Entrance and check in [...] your procedure in our Device Clinic in [facility]. Important Instructions Your surgical site is NOT [...] not hesitate to call the office at [phone] Preventing skin infections after surgery handout given * Telephone Encounter - Tessy Jones LPN - 11/11/2023 10:11 AM EDT LMOM to set up procedure. Transfer to [facility] Cardiology on return call. * Telephone Encounter [...] to patient: spouse Number to return call: [phone] Reason for call: Savannah calling in stating [...] 9:20 AM EDT Office Visit Nephrology, [place] [address] [place], [place] [address] Jose Winter MD [address] [place] [address] 12/26/2023 3:00 PM EDT Office Visit Cardiology, [facility] [address] [place] [address] Ewelina Poole PA-C 132 [place] [address] 01/24/2024 1:30 PM EDT Office Visit Urology, [facility] [address] [place] [address] George Tran MD 27 [facility] [address] [place] [address] 03/13/2024 3:00 PM EDT Cardiac Studies Cardiac Studies, [facility] [address] [place] [address] Scheduled Orders Name Type Priority Associated Diagnoses [...] this encounter Medical Devices Implanted Type Area Medical Claims Processor Device Identifier Shelf Expiration Date Model / Serial / Lot Sut Steel 6 M654g - [id number] Implanted:Qty: 4 on 05/30/2014 by Stanislav Hilliard MD [place] [facility] N/A: Chest JNJ : [employer] 02/07/2019 M654G / / [id number] Marker Coronary [facility] - [id number] Implanted:Qty: 2 on 05/30/2014 by Stanislav Hilliard MD at [place] [facility] N/A: Aorta [employer] 03/10/2017 [facility] / / [id number] Lens Intraoc 20.5 - [id number] - [id number] Implanted:Qty: 1 on 02/18/2022 by Yandel Bowens MD at OR [facility] Left: Eye [employer] 11/07/2026 [id number] / [id number] / [id number] Lens Intraoc 21.5 - [id number] - [id number] Implanted:Qty: 1 on 03/04/2022 by Yandel Bowens MD at OR [facility] Right: Eye [employer]OMB 10/08/2026 [id number] / [id number] / [id number] documented as of this encounter Visit Diagnoses [...] the patient have Health Care Power of Advanced Manager? No Code Status History Code Status Date Activated Date Inactivated Comments No Code 02/18/2022 7:51 AM 02/18/2022 2:15 PM This order reflects the patients wishes and were consensually agreed upon. Question Answer Comments Discussion of Advance Directives occurred with: Patient Does the patient have a Living Will? No Does the patient have Health Care Power of Advanced Manager? No Full Code 01/04/2019 6:51 PM [...] the patient have Health Care Power of Advanced Manager? No Care Teams Space And Missile Defense Operations Relationship Specialty Start Date End Date Angelo Vazquez MD [address] [place] [address] PCP - General Family Medicine 06/24/14 documented as of this encounter
--- OUTSIDE RECORDS SUMMARY | 2023-12-14 04:33 | External Medical Summary ---
Author Name Unknown Address Unknown Organization [id number]:[facility] [place] [address] Laboratory Report Ordering Provider Test Date Status HY,DEPAMPHILIS 11/21/2023 06:54:24 Final Observation Date Value Abnormality Reference (Units ) Status WBC, Total 11/21/2023 06:54:24 6.73 4.00-10.8 0 (K/uL) Final RBC 11/21/2023 06:54:24 2.40 4.50-5.25 (M/uL) Final Hemoglobin 11/21/2023 06:54:24 7.7 Below low normal 14 .0-16.8 (g/dL) Final HCT 11/21/2023 06:54:24 23.5 Below low normal 40. 0-48.4 (%) Final MCV 11/21/2023 06:54:24 97.9 82.0-99.5 (fL) Final MCH 11/21/2023 06:54:24 32.1 27.0-34.0 (pg) Final MCHC 11/21/2023 06:54:24 32.8 32.0-36.0 (g/dL) Final RDW 11/21/2023 06:54:24 14.0 11.5-15.5 (%) Final Platelets 11/21/2023 06:54:24 151 140-400 (K /uL) Final MPV 11/21/2023 06:54:24 8.8 6.6-11.1 ( fL) Final Performing Location [facility] [place] [address]
--- OUTSIDE RECORDS SUMMARY | 2023-12-14 04:33 | External Medical Summary | Summary of Care ---
Author Name Unknown Organization [facility] Address [address] [place] [address] Phone [phone] Care Team Providers Care Forensic Manager Name Role Phone Angelo Vazquez MD Primary Care Provider + Reason for Visit * Reason Onset Date Comments Hospital Follow-Up 11/22/2023 Advice 11/22/2023 Encounter Details Date Type Department Care Team (Late st Contact Info) Description 11/22/2023 Telephone General Internal Medicine [facility] [place] [address] [place] [phone] Angelo Vazquez MD [address] [facility] [place] [address] Hospital Follow-Up; Advice Allergies Active Allergy Reactions Criticality Noted [...] Tablet (Lipitor)Indication s:Paroxysmal atrial fibrillation (HCC),CAD in [place] artery,S/P CABG x 3 TAKE ONE TABLET BY MOUTH DAILY 90 Tablet 3 01/20/2023 01/25/2024 Active metFORMIN HCl 500 MG Oral Tablet (Glucophage)Indicat ions:Type 2 diabetes mellitus with hemoglobin A1c goal of less than 8.0% (HCC) TAKE ONE TABLET BY MOUTH DAILY 90 Tablet 3 04/21/2023 04/20/2024 Active Nitroglycerin 0.4 MG Sublingual Tablet Sublingual (Nitrostat)Indicati ons:CAD in [place] artery DISSOLVE 1 TABLET UNDER THE TONGUE [...] Well adult exam 12/03/2022 Overview: 12/01 TTE [facility] Dyspnea on exertion 11/29/2022 Spinal stenosis of [...] 2013 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 Prior: 5 stents-hx angina. Drug [...] mRNA, LNP-s, No Pre serve, 2-Dose Series ([place]) 06/11/2021,10/09/2020,09/19/2020 Covid-19, Mrna, Lnp-s, Pf, B ivalent, [...] Telephone Encounter - Estefanía Quiroz RN - 11/23/2023 2:22 PM EDT TE with pt's who is aware that appointment is still needed, She is aware that [facility] will provide transportation for this. * Telephone Encounter - Ethel Boudreaux OSA - 11/23/2023 1:11 PM EDT Pts on the line, she wants to know if the patient needs to keep his November 29 appointment being that [facility] is monitoring him. She is asking for a call back. Thank you * Telephone Encounter - Deanna Anderson LPN - 11/23/2023 11:29 AM EDT Labs placed in Jovieer system Sent to [facility] * Telephone Encounter - Polo Colin RN - 11/22/2023 12:06 PM EDT Patient discharged to [facility] 11/18/2023 from [facility]. Nephrology consulted for SIADH. Dr Badillo recommends hospital d/c visit w/ Dr Winter in [facility] in 2-4 wks after d/c with renal nurse rajaner bmp, serum and urine osms, urine electrolytes to be done no more than 48 hrs before visit. Please assist with these recommendations. Thank you documented in this encounter Plan of Treatment Upcoming Encounters Date Type Department Care Team (Late st Contact Info) Description 11/30/2023 9:20 AM EDT Office Visit Nephrology, [facility] [address] [place] [address] Jose Winter MD 200 [facility] [place] [address] 12/26/2023 3:00 PM EDT Office Visit Cardiology, [facility] [address] [facility] [place] [address] Ewelina Poole PA-C [address] [place] [address] 01/24/2024 1:30 PM EDT Office Visit Urology, [facility] [address] [place] [address] George Tran MD [address] [place] [address] [place] [address] 03/13/2024 3:00 PM EDT Cardiac Studies Cardiac Studies, [facility] [address] [facility] [place] [address] Scheduled Orders Name Type Priority Associated Diagnoses Orde r Schedule BASIC METABOLIC PANEL Lab Routine SIADH (syndrome of inappropriate ADH production) ([facility]) Expected: 11/23/2023 (Approximate), Expires: 11/22/2024 OSMOLALITY, SERUM Lab Routine SIADH (syndrome of inappropriate ADH production) ([facility]) Expected: 11/23/2023 (Approximate), Expires: 11/22/2024 OSMOLALITY, URINE Lab Routine SIADH (syndrome of inappropriate ADH production) ([facility]) Expected: 11/23/2023 (Approximate), Expires: 11/22/2024 ELECTROLYTES, RANDOM URINE Lab Routine SIADH (syndrome of inappropriate ADH production) ([facility]) Expected: 11/23/2023 (Approximate), Expires: 11/22/2024 Health Maintenance [...] this encounter Medical Devices Implanted Type Area Tungsten Tender Device Identifier Shelf Expiration Date Model / Serial / Lot Sut Steel 6 M654g - [id number] Implanted:Qty: 4 on 05/30/2014 by Stanislav Hilliard MD at OR [facility] N/A: Chest JNJ : [employer] 02/07/2019 M654G / / [id number] Marker Coronary [facility] - [id number] Implanted:Qty: 2 on 05/30/2014 by Stanislav Hilliard MD at OR [facility] N/A: Aorta [employer] 03/10/2017 [facility] / / [id number] Lens Intraoc 20.5 - [id number] - [id number] Implanted:Qty: 1 on 02/18/2022 by Yandel Bowens MD at OR [facility] Left: Eye [employer] 11/07/2026 [id number] / [id number] / [id number] Lens Intraoc 21.5 - [id number] - [id number] Implanted:Qty: 1 on 03/04/2022 by Yandel Bowens MD at OR [facility] Right: Eye [employer] 10/08/2026 [id number] / [id number] / [id number] documented as of this encounter Visit Diagnoses Diagnosis 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 No Code Status History Code Status Date Activated Date Inactivated Comments No Code 02/18/2022 7:51 AM 02/18/2022 2:15 PM This order reflects the patients wishes and were consensually agreed upon. Question Answer Comments Discussion of Advance Directives occurred with: Patient Does the patient have a Living Will? No Does the patient have Health Care Power of Shade Hanger? No Full Code 01/04/2019 6:51 PM 01/06/2019 [...] the patient have Health Care Power of Shade Hanger? No Care Teams Forensic Manager Relationship Specialty Start Date End Date Angelo Vazquez MD [address] [place] [address] PCP - General Family Medicine 06/24/14 documented as of this encounter
--- OUTSIDE RECORDS SUMMARY | 2023-12-14 04:33 | External Medical Summary | Summary of Care ---
Author Name Unknown Organization [facility] Address [address] [place] [address] Phone [phone] Care Team Providers Care Heavy Equipment Operator/Paver Name Role Phone Angelo Vazquez MD Primary Care Provider + Reason for Visit * Reason Onset Date Comments Hospital Follow-Up 11/22/2023 Advice 11/22/2023 Encounter Details Date Type Department Care Team (Late st Contact Info) Description 11/22/2023 Telephone General Internal Medicine [facility] [place] [address] [place] [phone] Angelo Vazquez MD [address] [facility] [place] [address] Hospital Follow-Up; Advice Allergies Active Allergy Reactions [...] Tablet (Lipitor)Indication s:Paroxysmal atrial fibrillation (HCC),CAD in [place] artery,S/P CABG x 3 TAKE ONE TABLET BY MOUTH DAILY 90 Tablet 3 01/20/2023 01/25/2024 Active metFORMIN HCl 500 MG Oral Tablet (Glucophage)Indicat ions:Type 2 diabetes mellitus with hemoglobin A1c goal of less than 8.0% (HCC) TAKE ONE TABLET BY MOUTH DAILY 90 Tablet 3 04/21/2023 04/20/2024 Active Nitroglycerin 0.4 MG Sublingual Tablet Sublingual (Nitrostat)Indicati ons:CAD in [place] artery DISSOLVE 1 TABLET UNDER THE TONGUE [...] adult exam 12/03/2022 Overview: 12/[address] 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 Prior: 5 stents-hx angina. Drug eluting, & [...] mRNA, LNP-s, No Pre serve, 2-Dose Series (ComVibe) 06/11/2021,10/09/2020,09/19/2020 Covid-19, Mrna, Lnp-s, Pf, B ivalent, [...] encounter Miscellaneous Notes * Telephone Encounter - Ethel Boudreaux OSA - 11/23/2023 1:11 PM EDT Pts on the line, she wants to know if the patient needs to keep his November [address] [facility] is monitoring him. She is asking for a call back. Thank you * Telephone Encounter - Deanna Anderson LPN - 11/23/2023 11:29 AM EDT Labs placed in judo system Sent to [facility] * Telephone Encounter - Polo Colin RN - 11/22/2023 12:06 PM EDT Patient discharged to [facility] 11/18/[address] [facility]. Nephrology consulted for SIADH. Dr Badillo recommends hospital d/c visit w/ Dr Winter in [facility] in 2-4 wks after d/c with renal nurse rajaner bmp, serum and urine osms, urine electrolytes to be done no more than 48 hrs before visit. Please assist with these recommendations. Thank you documented in this encounter Plan of Treatment Upcoming Encounters Date Type Department Care Team (Late st Contact Info) Description 11/30/2023 9:20 AM EDT Office Visit Nephrology, [facility] [address] [facility] [place] [address] Jose Winter MD [address] [facility] [place] [address] 12/26/2023 3:00 PM EDT [facility] Visit [facility] [address] Ewelina Poole PA-C 132 [facility] [place] [address] 01/24/2024 1:30 PM EDT Office Visit Urology, [facility] 132 [facility] [place] [address] George Tran MD 27 [facility] [address] [place] [address] 03/13/2024 3:00 PM EDT Cardiac Studies Card[facility] Studies, [facility] [address] [facility] [place] [address] Scheduled Orders Name Type Priority Associated Diagnoses Orde r Schedule BASIC METABOLIC PANEL Lab Routine SIADH (syndrome of inappropriate ADH production) ([facility]) Expected: 11/23/2023 (Approximate), Expires: 11/22/2024 OSMOLALITY, SERUM Lab Routine SIADH (syndrome of inappropriate ADH production) ([facility]) Expected: 11/23/2023 (Approximate), Expires: 11/22/2024 OSMOLALITY, URINE Lab Routine SIADH (syndrome of inappropriate ADH production) ([facility]) Expected: 11/23/2023 (Approximate), Expires: 11/22/2024 ELECTROLYTES, RANDOM URINE Lab Routine SIADH (syndrome of inappropriate ADH production) ([facility]) Expected: 11/23/2023 (Approximate), Expires: 11/22/2024 Health Maintenance [...] this encounter Medical Devices Implanted Type Area Painting Supervisor Device Identifier Shelf Expiration Date Model / Serial / Lot Sut Steel 6 M654g - [id number] Implanted:Qty: 4 on 05/30/2014 by Stanislav Hilliard MD at OR [facility] N/A: Chest JNJ : [employer] 02/07/2019 M654G / / [id number] Marker Coronary [facility] - [id number] Implanted:Qty: 2 on 05/30/2014 by Stanislav Hilliard MD at OR [facility] N/A: Aorta [employer] 03/10/2017 [facility] / / [id number] Lens Intraoc 20.5 - [id number] - [id number] Implanted:Qty: 1 on 02/18/2022 by Yandel Bowens MD at OR [facility] Left: Eye [employer] 11/07/2026 [id number] / [id number] / [id number] Lens Intraoc 21.5 - [id number] - [id number] Implanted:Qty: 1 on 03/04/2022 by Yandel Bowens MD at OR [facility] Right: Eye [employer] 10/08/2026 [id number] / [id number] / [id number] documented as of this encounter Visit Diagnoses [...] the patient have Health Care Power of Neuroscience Specialist? No Code Status History Code Status Date Activated Date Inactivated Comments No Code 02/18/2022 7:51 AM 02/18/2022 2:15 PM This order reflects the patients wishes and were consensually agreed upon. Question Answer Comments Discussion of Advance Directives occurred with: Patient Does the patient have a Living Will? No Does the patient have Health Care Power of Neuroscience Specialist? No Full Code 01/04/2019 6:51 PM [...] the patient have Health Care Power of Neuroscience Specialist? No Care Teams Heavy Equipment Operator/Paver Relationship Specialty Start Date End Date Angelo Vazquez MD [address] [place] [address] PCP - General Family Medicine 06/24/14 documented as of this encounter
--- OUTSIDE RECORDS SUMMARY | 2023-12-14 04:33 | External Medical Summary ---
Author Name Unknown Address Unknown Organization K01:[facility] - [address] [place] [address] Laboratory Report Ordering Provider Test Date Status HY,DEPAMPHILIS 11/21/2023 06:54:24 Final Observation Date Value Abnormality Reference (Units ) Status HbA1C 11/21/2023 06:54:24 5.1 4.0-5.6 (% ) Final The use of HbA1c to monitor glycemic status is based on normal hemoglobin and HbA composition. This test should not be used in patients with abnormal hemoglobin that affects the half life of the red blood cell or the in vivo glycation rates. Glucose, estimated average 11/21/2023 06:54:24 100 <126 (mg/dL) Final Performing Location [facility] - [address] [place] [address]
--- OUTSIDE RECORDS SUMMARY | 2023-12-14 04:33 | External Medical Summary | Summary of Care ---
Author Name Unknown Organization [facility] Address [address] [place] [address] Phone [phone] Care Team Providers Care Panel Machine Operator Name Role Phone Angelo Vazquez MD Primary Care Provider + Reason for Visit * Reason Onset Date Comments Advice 11/09/2023 Encounter Details Date Type Department Care Team (Late st Contact Info) Description 11/09/2023 Telephone Cardiology, [place] [address] [facility] [place] [address] Melyssa [address] [place], [address] [place] [address] Advice Allergies Active Allergy Reactions Criticality [...] Tablet (Lipitor)Indication s:Paroxysmal atrial fibrillation (HCC),CAD in [place] artery,S/P CABG x 3 TAKE ONE TABLET BY MOUTH DAILY 90 Tablet 3 01/20/2023 01/25/2024 Active metFORMIN HCl 500 MG Oral Tablet (Glucophage)Indicat ions:Type 2 diabetes mellitus with hemoglobin A1c goal of less than 8.0% (HCC) TAKE ONE TABLET BY MOUTH DAILY 90 Tablet 3 04/21/2023 04/20/2024 Active Nitroglycerin 0.4 MG Sublingual Tablet Sublingual (Nitrostat)Indicati ons:CAD in [place] artery DISSOLVE 1 TABLET UNDER THE TONGUE [...] Well adult exam 12/03/2022 Overview: 12/01 TTE [facility] Dyspnea on exertion 11/29/2022 Spinal stenosis [...] Mild 2014 PAF (paroxysmal atrial fibrillation) 07/14/2012 retirement current use of anticoagulant therapy 0 07/14/2012 Overview: ICD-10 update of inactive term Dysthymia 11/30/2011 Coronary artery disease invo lving [place] coronary artery of [place] heart without angina pectoris Overview: 05/30/14 3V CABG [facility]. Prior: 5 stents-hx angina. Drug eluting, & [...] mRNA, LNP-s, No Pre serve, 2-Dose Series (fitkit) 06/11/2021,10/09/2020,09/19/2020 Covid-19, Mrna, Lnp-s, Pf, B ivalent, 30 Mcg, IM, 12 yrs and above (fitkit) 05/03/2022 H1N1 2009 Influenza, IM 06/23/2009 Pneumococcal [...] 11/15/2023 8:24 AM EDT Currently inpatient at [facility] * Telephone Encounter - Tessy Jones LPN - 11/11/2023 4:11 PM EDT Spoke with by phone. Gave date and time. was at doctors visit with Pt, asked that information sent over [employer]/pt portal. Reminded to come in and filler picker chlorhexidine soap. agreed. * Telephone Encounter - Tessy JonesRUBIA - 11/11/2023 3:28 PM EDT ELECTROPHYSIOLOGY PACEMAKER/ICD INSTRUCTIONS Please arrive at [facility] via the Main Entrance and check in [...] your procedure in our Device Clinic in [facility]. Important Instructions Your surgical site is NOT [...] not hesitate to call the office at [phone] Preventing skin infections after surgery handout given * Telephone Encounter - Tessy Jones LPN - 11/11/2023 10:11 AM EDT LMOM to set up procedure. Transfer to [facility] on return call. * Telephone Encounter [...] to patient: spouse Number to return call: [phone] Reason for call: Savannah calling in stating [...] 9:20 AM EDT Office Visit Nephrology, [place] [address] [place], [place] [address] Jose Winter MD [address] [place] [address] 12/26/2023 3:00 PM EDT Office Visit Cardiology, [facility] [address] [place] [address] Ewelina Poole PA-C [address] [place] [address] 01/24/2024 1:30 PM EDT Office Visit Urology, [facility] [address] [place] [address] George Tran MD [address] [facility] [address] [place] [address] 03/13/2024 3:00 PM EDT Cardiac Studies Cardiac Studies, [facility] [address] [place] [address] Scheduled Orders Name Type Priority Associated Diagnoses [...] this encounter Medical Devices Implanted Type Area Yard Cleaner Device Identifier Shelf Expiration Date Model / Serial / Lot Sut Steel 6 M654g - [id number] Implanted:Qty: 4 on 05/30/2014 by Stanislav Hilliard MD at [place] [facility] N/A: Chest JNJ : [employer] 02/07/2019 M654G / / [id number] Marker Coronary [facility]-Nm - [id number] Implanted:Qty: 2 on 05/30/2014 by Stanislav Hilliard MD [place] [facility] N/A: Aorta [employer] 03/10/2017 [facility] / / [id number] Lens Intraoc 20.5 - [id number] - [id number] Implanted:Qty: 1 on 02/18/2022 by Yandel Bowens MD at OR [facility] Left: Eye [employer] 11/07/2026 [id number] / [id number] / [id number] Lens Intraoc 21.5 - [id number] - [id number] Implanted:Qty: 1 on 03/04/2022 by Yandel Bowens MD at OR [facility] Right: Eye [employer] 10/08/2026 [id number] / [id number] / [id number] documented as of this encounter Visit Diagnoses [...] the patient have Health Care Power of Investigation Lieutenant? No Code Status History Code Status Date Activated Date Inactivated Comments No Code 02/18/2022 7:51 AM 02/18/2022 2:15 PM This order reflects the patients wishes and were consensually agreed upon. Question Answer Comments Discussion of Advance Directives occurred with: Patient Does the patient have a Living Will? No Does the patient have Health Care Power of Investigation Lieutenant? No Full Code 01/04/2019 6:51 PM 01/06/2019 [...] the patient have Health Care Power of Investigation Lieutenant? No Care Teams Panel Machine Operator Relationship Specialty Start Date End Date Angelo Vazquez MD [address] [place] [address] PCP - General Family Medicine 06/24/14 documented as of this encounter
--- OUTSIDE RECORDS SUMMARY | 2023-12-14 04:33 | External Medical Summary ---
Author Name Unknown Address Unknown Organization K09:[facility] [place] [address] Laboratory Report Ordering Provider Test Date Status EVANS LARSON 11/24/2023 06:22:24 Final Observation Date Value Abnormality Reference (Units ) Status WBC, Total 11/24/2023 06:22:24 6.43 4.00-10.8 0 (K/uL) Final RBC 11/24/2023 06:22:24 2.39 4.50-5.25 (M/uL) Final Hemoglobin 11/24/2023 06:22:24 7.6 Below low normal 14 .0-16.8 (g/dL) Final HCT 11/24/2023 06:22:24 23.7 Below low normal 40. 0-48.4 (%) Final MCV 11/24/2023 06:22:24 99.2 82.0-99.5 (fL) Final MCH 11/24/2023 06:22:24 31.8 27.0-34.0 (pg) Final MCHC 11/24/2023 06:22:24 32.1 32.0-36.0 (g/dL) Final RDW 11/24/2023 06:22:24 14.1 11.5-15.5 (%) Final Platelets 11/24/2023 06:22:24 142 140-400 (K /uL) Final MPV 11/24/2023 06:22:24 8.7 6.6-11.1 ( fL) Final Performing Location [facility] [place] [address]
--- OUTSIDE RECORDS SUMMARY | 2023-12-14 04:34 | External Medical Summary | Summary of Care ---
Author Name Unknown Organization [facility] Address [address] [place] [address] Phone [phone] Care Team Providers Care Brake Lining Driller Name Role Phone Angelo Vazquez MD Primary Care Provider + Reason for Visit * Reason Comments NEW PATIENT Right hip * Evaluate & Treat - Unlimited Visits (Within 3 days (urgent)) - Authorized Specialty Diagnoses / Procedures Referred By Contdebora t Referred To Contact Orthopaedic Surgery / Orthopedics Diagnoses Right leg injury Angelo Vazquez MD [address] [place] [address] Referral ID Status Reason Start Date Expiration Date Visits Requested Visits Authorized [id number] Authorized Specialty Services Required 11/14/[phone] Encounter Details Date Type Department Care Team (Latest Contact Info) Description 11/14/2023 3:05 PM EDT Office Visit Orthopaedics [facility] [address] [place] [address] SharerJackie PA-C [address] [place] [address] Periprosthetic fracture of hip, initial encounter*; Injury of right hip, initial encounter Allergies Active Allergy Reactions Criticality Noted Date [...] s:Paroxysmal atrial fibrillation (HCC),CAD in [place] artery,S/P CABG x 3 TAKE ONE TABLET BY MOUTH DAILY 90 Tablet 3 01/20/2023 01/25/2024 Active metFORMIN HCl 500 MG Oral Tablet (Glucophage)Indicat ions:Type 2 diabetes mellitus with hemoglobin A1c goal of less than 8.0% (HCC) TAKE ONE TABLET BY MOUTH DAILY 90 Tablet 3 04/21/2023 04/20/2024 Active Nitroglycerin 0.4 MG Sublingual Tablet Sublingual (Nitrostat)Indicati ons:CAD in [place] artery DISSOLVE 1 TABLET UNDER THE TONGUE [...] Mild 2014 PAF (paroxysmal atrial fibrillation) 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 Prior: 5 stents-hx angina. Drug eluting, & [...] mRNA, LNP-s, No Pre serve, 2-Dose Series ([employer] Vega) 06/11/2021,10/09/2020,09/19/2020 Covid-19, Mrna, Lnp-s, Pf, B ivalent, [...] as of this encounter Progress Notes * Sharer, Jackie Segura PA-C - 11/14/2023 3:30 PM EDT Srini Ch is a 88 year old male who presents for consultation to [facility] for right hip injury/pain. History: Patient reports pain started 11/14/2023. Patient states he injured his hip in a slip and fall. Reports significant pain even at rest. He is having difficulty with ambulation. Reports history of totalhip replacement in 2009 while living in [place]. Review of systems: All others negative except those noted above in HPI. Review of patient's allergies indicates: Allergen Reactions [...] TABLET BY MOUTH DAILY 90 Tablet 3 Nitroglycerin 0.4 MG Sublingual Tablet [...] mouth in the morning. 30 Tablet 2 Folic Acid 1 MG Oral Tablet Take 1 Tablet by mouth in the morning. 30 Tablet 11 Metoprolol Succinate ER 25 MG Oral Tablet Extended Release 24 Hour (toPROL XL) TAKE ONE TABLET BY MOUTH DAILY 90 Tablet 3 No current facility-administered medications for this visit. Past Medical History: Diagnosis Date Angina pectoris syndrome ([facility]) Arthritis Benign neoplasm of colon 03/05/2014 adenomatous polyp, repeat 5 yrs CAD in [place] artery Diabetes type 2, controlled ([facility]) HbA1c < 7, no medication. Diverticulosis of [...] fusion SIADH (syndrome of inappropriate ADH production) ([facility]) 09/03/2020 Due to high fluid PO intake. Type 2 diabetes mellitus with hemoglobin A1c goal of less than 8.0% ([facility]) 09/26/2014 ICD-10 update of inactive term Patient Active Problem List Diagnosis Code Coronary artery disease involving [place] coronary artery of [place] heart without angina pectoris I25.10 Gastroesophageal reflux disease K21.9 Dyslipidemia E78.5 Dysthymia F34.1 PAF (paroxysmal atrial fibrillation) ([facility]) I48.0 detention current use of anticoagulant therapy Z79.01 Diabetic retinopathy ([facility]) E11.319 Aortocoronary bypass status Z95.1 Type 2 diabetes mellitus with hemoglobin A1c goal of less than 8.0% ([facility]) E11.9 S/P CABG x 3 Z95.1 Dry eyes H04.123 Hyponatremia E87.1 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 S/P lumbar spinal fusion Z98.1 Left renal mass N28.89 Dyslipidemia, goal LDL below 70 E78.5 BPH with obstruction/lower urinary tract symptoms N40.1, 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) ([facility]) E22.2 Acquired hypothyroidism E03.9 Mild episode of recurrent major depressive disorder ([facility]) F33.0 Age-related cataract of both eyes H25.9 HTN, goal below 140/90 I10 Nonrheumatic aortic valve stenosis I35.0 Dyspnea on exertion R06.09 Spinal stenosis of lumbar region with neurogenic claudication M48.062 Medical home patient encounter Z00.8 Renal cyst, acquired, left N28.1 Urge incontinence N39.41 Chronic systolic heart failure (HCC) I50.22 DM kidney disease ([facility]) E11.21 Past Surgical History: Procedure Laterality Date ARTHROPLASTY KNEE TOTAL 2008 (?) Left knee injury with surgery in 1968, arthritis before surgery [place] ANGIOPLASTY;SINGLE 52 years old BYPASS GRAFT ANGIOGRAPHY W/LEFT HEART CATH Right 01/05/2019 BYPASS GRAFT ANGIOGRAPHY W/LEFT HEART CATH performed by Mouna Castro MD at [facility] CABG, ARTERIAL, SINGLE N/A 05/30/2014 CORONARY ARTERY BYPASS GRAFT USING ARTERY 1 GRAFT performed by Stanislav Hilliard MD at [facility] CABG, ARTERIAL, THREE 05/30/14 (3v, not 1v) CARPAL TUNNEL SURGERY Bilateral 03/2017 Dr Hanna COLONOSCOPY, DIAGNOSTIC (RECTUM) 03/05/2014 adenomatous polyp, diverticulosis, repeat 5 yrs/COLONOSCOPY FLEXIBLE PROXIMAL DIAGNOSTIC performed by Mason Wilkes MD at ENDOSCOPY [facility] COLONOSCOPY, DIAGNOSTIC (RECTUM) 11/02/2017 adenomatous polyp / [facility] EGD, FLEXIBLE, DIAGNOSTIC 03/05/2014 normal/ESOPHAGOGASTRODUODENOSCOPY (EGD), FLEXIBLE, TRANSORAL, DIAGNOSTIC performed by Mason Wilkes MD at ENDOSCOPY [facility] EGD, FLEXIBLE, DIAGNOSTIC 11/02/2017 normal bx / [facility] LUMBAR SPINE FUSION, POST INTERBODY 09/15/2017 Dr [email or web address]. L2-4 fusion. transverse fusion/bone. PATIENT EDU, LUMBAR MICRODISCECTOMY 1991 still has intermittent lower right back pain, does not radiate beyond the hip REMOVE CATARACT, INSERT LENS PROSTH Left 02/18/2022 LEFT EXTRACAPSULAR CATARACT REMOVAL WITH INTRAOCULAR LENS performed by Yandel Bowens MD at OR [facility] REMOVE CATARACT, INSERT LENS PROSTH Right 03/04/2022 RIGHT EXTRACAPSULAR CATARACT REMOVAL WITH INTRAOCULAR LENS performed by Yandel Bowens MD at OR [facility] STENT, COATED/COVERED, WITH DELIVERY SYSTEM Last one was 11/23/10 total of 5 stents, 2 MARIBEL (06/13) and 1 BMS (11/23/10) TOTAL HIP REPLACEMENT & PROSTHESIS December 22 2009 right hip due to arthritis. In [place]. 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 Estimated body mass index is 25.46 kg/m as calculated from the following: Height as of 06/07/23: 1.854 m (6' 1"). Weight as of 10/18/23: 87.5 kg (193 lb). General: generally well-nourished and in Obvious discomfort HEENT: normocephalic, atraumatic, sclera anicteric. Psych: mood and affect normal , cooperative Card: Peripheral pulses: normal in affected extremity (s) Resp: equal chest rise, non-tachypneic, non-labored breathing Skin: no rash, normal Radiology (I have personally reviewed the following films): Xrays were reviewed with patient. Thosex-rays show a periprosthetic hip fracture. Assessment and Plan: Periprosthetic fracture of hip, initial encounter (Primary) Injury of right hip, initial encounter - XR HIP UNILAT 2-3 VIEWS INCLUDING AP PELVIS Recommend patient report to [facility] Emergency department for further management. Patient expressed understanding and had no further questions. Jackie Winston PA-C [facility] documented in this encounter Nursing Notes * Darling Cai MED ASSIST - 11/14/2023 3:17 PM EDT Patient presents today for right hip injury. States he fell this morning, was in the restroom, socks slid on the floor and fell onto his right side. documented in this encounter Plan of Treatment Upcoming Encounters Date Type Department Care Team (Late st Contact Info) Description 11/30/2023 9:20 AM EDT Office Visit Nephrology, [place] [address] [place] [address] Jose Winter MD [address] [facility] [place] [address] 12/26/2023 3:00 PM EDT Office Visit Cardiology, [facility] [address] [place] [address] Ewelina Poole PA-C [address] [place] [address] 01/24/2024 1:30 PM EDT Office Visit Urology, [facility] [address] [facility] [place] [address] George Tran MD [address] [place] [address] [place] [address] 03/13/2024 3:00 PM EDT Cardiac Studies Cardiac Studies, [facility] [address] [facility] [place] [address] Pending Results Name Type Priority Associated Diagnoses Date /Time XR HIP UNILAT 2-3 VIEWS INCLUDING AP PELVIS Medical Imaging Routine Injury of right hip, initial encounter 11/14/2023 3:35 PM EDT Health Maintenance Due Date Last [...] this encounter Medical Devices Implanted Type Area Aligner Device Identifier Shelf Expiration Date Model / Serial / Lot Sut Steel 6 M654g - [id number] Implanted:Qty: 4 on 05/30/2014 by Stanislav Hilliard MD at OR [facility] N/A: Chest JNJ : [employer] 02/07/2019 M654G / / [id number] Marker Coronary [facility] - [id number] Implanted:Qty: 2 on 05/30/2014 by Stanislav Hilliard MD at OR [facility] N/A: Aorta [employer] 03/10/2017 AM-SD / / [id number] Lens Intraoc 20.5 - [id number] - [id number] Implanted:Qty: 1 on 02/18/2022 by Yandel Bowens MD at OR [facility] Left: Eye [employer] 11/07/2026 [id number] / [id number] / [id number] Lens Intraoc 21.5 - [id number] - [id number] Implanted:Qty: 1 on 03/04/2022 by Yandel Bowens MD at [facility] Right: Eye [employer] 10/08/2026 [id number] / [id number] / [id number] documented as of this encounter Visit Diagnoses Diagnosis Periprosthetic fracture of hip, initial encounter- Primary Injury of right hip, initial encounter documented in this encounter Advance Directives Latest Code Status on File Code Status Date Activated Date Inactivated Comments No Code 03/04/2022 8:43 AM 03/04/2022 2:28 PM This order reflects the patients wishes and were consensually agreed upon. Question Answer Comments Discussion of Advance Directives occurred with: Patient Does the patient have a Living Will? No Does the patient have Health Care Power of Family Independence Case Manager? No Code Status History Code Status Date Activated Date Inactivated Comments No Code 02/18/2022 7:51 AM 02/18/2022 2:15 PM This order reflects the patients wishes and were consensually agreed upon. Question Answer Comments Discussion of Advance Directives occurred with: Patient Does the patient have a Living Will? No Does the patient have Health Care Power of Family Independence Case Manager? No Full Code 01/04/2019 6:51 PM [...] the patient have Health Care Power of Family Independence Case Manager? No Care Teams Brake Lining Driller Relationship Specialty Start Date End Date Angelo Vazquez MD [address] [place] [address] PCP - General Family Medicine 06/24/14 documented as of this encounter
--- OUTSIDE RECORDS SUMMARY | 2023-12-14 04:34 | External Medical Summary | Summary of Care ---
Author Name Unknown Organization [facility] Address [address] [place] [address] Phone [phone] Care Team Providers Care Child Protective Services Specialist Name Role Phone Angelo Vazquez MD Primary Care Provider + Reason for Visit * Reason Onset Date Comments Advice 11/09/2023 Encounter Details Date Type Department Care Team (Late st Contact Info) Description 11/09/2023 Telephone Cardiology, [place] [address] [facility] [place] [address] Melyssa Cornell Jia, [address] [place] [address] Advice Allergies Active Allergy Reactions Criticality [...] Tablet (Lipitor)Indication s:Paroxysmal atrial fibrillation (HCC),CAD in [place] artery,S/P CABG x 3 TAKE ONE TABLET BY MOUTH DAILY 90 Tablet 3 01/20/2023 01/25/2024 Active metFORMIN HCl 500 MG Oral Tablet (Glucophage)Indicat ions:Type 2 diabetes mellitus with hemoglobin A1c goal of less than 8.0% (HCC) TAKE ONE TABLET BY MOUTH DAILY 90 Tablet 3 04/21/2023 04/20/2024 Active Nitroglycerin 0.4 MG Sublingual Tablet Sublingual (Nitrostat)Indicati ons:CAD in [place] artery DISSOLVE 1 TABLET UNDER THE TONGUE [...] Dysthymia 11/30/2011 Coronary artery disease invo lving north [place] coronary artery of north fork heart without angina pectoris Overview: 05/30/14 3V CABG [facility]. Prior: 5 stents-hx angina. [...] mRNA, LNP-s, No Pre serve, 2-Dose Series (vidIQ) 06/11/2021,10/09/2020,09/19/2020 Covid-19, Mrna, Lnp-s, Pf, B ivalent, 30 Mcg, IM, 12 yrs and above (vidIQ) 05/03/2022 H1N1 2008 Influenza, IM 06/23/2009 Pneumococcal [...] 11/15/2023 8:24 AM EDT Currently inpatient at [facility] * Telephone Encounter - Tessy Jones LPN - 11/11/2023 4:11 PM EDT Spoke with by phone. Gave date and time. was at doctors visit with Pt, asked that information sent over [facility]pt portal. Reminded to come in and garbage pick up worker chlorhexidine soap. agreed. * Telephone Encounter - Tessy Jones LPN - 11/11/2023 3:28 PM EDT ELECTROPHYSIOLOGY PACEMAKER/ICD INSTRUCTIONS Please arrive at [facility] via the Main Entrance and check [...] your procedure in our Device Clinic in [facility]. Important Instructions Your surgical site is [...] not hesitate to call the office at [phone] Preventing skin infections after surgery handout given * Telephone Encounter - Tessy Jones LPN - 11/11/2023 10:11 AM EDT LMOM to set up procedure. Transfer to [facility] Cardiology on return call. * Telephone [...] to patient: spouse Number to return call: [phone] Reason for call: Savannah calling in stating that Srini has had some time to think and he has decided that he would like to proceed in getting a pacemaker placed. aSvannah stated the sooner the better. Pharmacy: na Provider Name:Kraig Pt is scheduled 12/06/23 with Savannah Cornell would like procedure set up sooner if possible. documented in this encounter Plan of Treatment Upcoming Encounters Date Type Department Care Team (Late st Contact Info) Description 11/30/2023 9:20 AM EDT Office Visit Nephrology, [facility] [address] [facility] [place], [place] [address] Jose Winter MD [facility] [place] [address] 12/06/2023 11:30 AM EDT Office Visit Cardiology, [facility] 132 [place] [address] Melyssa Cornell, [address] [facility] [place] [address] 12/26/2023 3:00 PM EDT Office Visit Cardiology, [facility] [address] Ewelina Poole, [place] [address] [place] [address] 01/24/2024 1:30 PM EDT Office Visit Urology, [facility] [address] [facility] [address] George Tran MD [address] [place] [address] [place] [address] 03/13/2024 3:00 PM EDT Cardiac Studies Cardiac Studies, [facility] 132 [place] [address] Scheduled Orders Name Type Priority Associated Diagnoses [...] this encounter Medical Devices Implanted Type Area Edge Grinder Machine Device Identifier Shelf Expiration Date Model / Serial / Lot Franko Mayen 6 M654g - [id number] Implanted:Qty: 4 on 05/30/2014 by Stanislav Hilliard MD at OR [facility] N/A: Chest JNJ : [employer] 02/07/2019 M654G / / [id number] Marker Coronary [facility] - [id number] Implanted:Qty: 2 on 05/30/2014 by Stanislav Hilliard MD at OR [facility] N/A: Aorta [employer] 03/10/2017 [facility] / / [id number] Lens Intraoc 20.5 - [id number] - [id number] Implanted:Qty: 1 on 02/18/2022 by Yandel Bowens MD at OR [facility] Left: Eye [employer]OM[employer] 11/07/2026 [id number] / [id number] / [id number] Lens Intraoc 21.5 - [id number] - [id number] Implanted:Qty: 1 on 03/04/2022 by Yandel Bowens MD at OR [facility] Right: Eye [employer] LOMB 10/08/2026 [id number] / [id number] / [id number] documented as of this encounter Visit Diagnoses [...] the patient have Health Care Power of Design Technology Professor? No Code Status History Code Status Date Activated Date Inactivated Comments No Code 02/18/2022 7:51 AM 02/18/2022 2:15 PM This order reflects the patients wishes and were consensually agreed upon. Question Answer Comments Discussion of Advance Directives occurred with: Patient Does the patient have a Living Will? No Does the patient have Health Care Power of Design Technology Professor? No Full Code 01/04/2019 6:51 PM 01/06/2019 [...] the patient have Health Care Power of Design Technology Professor? No Care Teams Child Protective Services Specialist Relationship Specialty Start Date End Date Angelo Vazquez MD 132 [facility] [place] [address] PCP - General Family Medicine 06/24/14 documented as of this encounter
--- OUTSIDE RECORDS SUMMARY | 2023-12-14 04:34 | External Medical Summary | Summary of Care ---
Author Name Unknown Organization [facility] Address [address] [place] [address] Phone [phone] Care Team Providers Care Director Of Scout Work Name Role Phone Angelo Vazquez MD Primary Care Provider + Encounter Details Date Type Department Care Team (Late st Contact Info) Description 11/15/2023 Orders Only PATIENT PORTAL DO NOT DELETE THIS DEPT USED BY [place] [id number] Allergies Active Allergy Reactions Criticality Noted Date [...] Tablet (Lipitor)Indication s:Paroxysmal atrial fibrillation (HCC),CAD in [place] artery,S/P CABG x 3 TAKE ONE TABLET BY MOUTH DAILY 90 Tablet 3 01/20/2023 01/25/2024 Active metFORMIN HCl 500 MG Oral Tablet (Glucophage)Indicat ions:Type 2 diabetes mellitus with hemoglobin A1c goal of less than 8.0% (HCC) TAKE ONE TABLET BY MOUTH DAILY 90 Tablet 3 04/21/2023 04/20/2024 Active Nitroglycerin 0.4 MG Sublingual Tablet Sublingual (Nitrostat)Indicati ons:CAD in [place] artery DISSOLVE 1 TABLET UNDER THE TONGUE [...] Mild 2014 PAF (paroxysmal atrial fibrillation) 07/14/2012 [facility] current use of anticoagulant therapy 0 07/14/2012 Overview: ICD-10 update of inactive term Dysthymia 11/30/2011 Coronary artery disease invo lving [place] coronary artery of [place] heart without angina pectoris Overview: 05/30/14 3V CABG [facility]. Prior: 5 stents-hx [...] mRNA, LNP-s, No Pre serve, 2-Dose Series (f4samurai) 06/11/2021,10/09/2020,09/19/2020 Covid-19, Mrna, Lnp-s, Pf, B ivalent, 30 Mcg, IM, 12 yrs and above (f4samurai) 05/03/2022 H1N1 2009 Influenza, IM 06/23/2009 Pneumococcal [...] EDT Office Visit Ne[place]rologyMohan [address] [place] [address] Jose Winter MD [address] [place] [address] 12/06/2023 11:30 AM EDT Office Visit [facility], [facility] [place] [address] Melyssa Cornell, 400 [facility] [place] [address] 12/26/2023 3:00 PM EDT Office Visit Cardiology, [facility] [address] [place] [address] Ewelina Poole PA-C [address] [place] [address] 01/24/2024 1:30 PM EDT Office Visit Urology, [facility] [address] [place] [address] George Tran MD [address] [facility] [place] [address] [place] [address] 03/13/2024 3:00 PM EDT Cardiac Studies Cardiac Studies, [facility] [address] [place] [address] Health Maintenance Due Date Last Done Comments [...] this encounter Medical Devices Implanted Type Area Funeral Home Manager Device Identifier Shelf Expiration Date Model / Serial / Lot Sut Steel 6 M654g - [id number] Implanted:Qty: 4 on 05/30/2014 by Stanislav Hilliard MD at OR [facility] N/A: Chest JNJ : [employer] 02/07/2019 M654G / / [id number] Marker Coronary [facility]-[place] - [id number] Implanted:Qty: 2 on 05/30/2014 by Stanislav Hilliard MD at OR [facility] N/A: Aorta [employer] 03/10/2017 [facility]-[place] / / [id number] Lens Intraoc 20.5 - [id number] - [id number] Implanted:Qty: 1 on 02/18/2022 by Yandel Bowens MD at OR [facility] Left: Eye [employer]USCH [employer] LOMB 11/07/2026 [id number] / [id number] / [id number] Lens Intraoc 21.5 - [id number] - [id number] Implanted:Qty: 1 on 03/04/2022 by Yandel Bowens MD at OR [facility] Right: Eye [employer]OMB 10/08/2026 [id number] / [id number] / [id number] documented as of this encounter Advance Directives [...] the patient have Health Care Power of [employer] Assistant Manager? No Code Status History Code Status Date Activated Date Inactivated Comments No Code 02/18/2022 7:51 AM 02/18/2022 2:15 PM This order reflects the patients wishes and were consensually agreed upon. Question Answer Comments Discussion of Advance Directives occurred with: Patient Does the patient have a Living Will? No Does the patient have Health Care Power of [employer] Assistant Manager? No Full Code 01/04/2019 6:51 PM [...] the patient have Health Care Power of [employer] Assistant Manager? No Care Teams Director Of Scout Work Relationship Specialty Start Date End Date Angelo Vazquez MD 132 [place] [address] PCP - General Family Medicine 06/24/14 documented as of this encounter
--- OUTSIDE RECORDS SUMMARY | 2023-12-14 04:34 | External Medical Summary | Summary of Care ---
Author Name Unknown Organization [facility] Address [address] [place] [address] Phone [phone] Care Team Providers Care Costume Maker Name Role Phone Angelo Vazquez MD Primary Care Provider + Reason for Visit * Reason Onset Date Comments Advice 11/14/2023 Encounter Details Date Type Department Care Team (Late st Contact Info) Description 11/14/2023 Telephone Cardiology, [place] [address] [facility] [place] [address] Melyssa Cornell [facility] [address] [facility] [place] [address] Advice Allergies Active Allergy Reactions Criticality [...] Tablet (Lipitor)Indication s:Paroxysmal atrial fibrillation (HCC),CAD in [place] artery,S/P CABG x 3 TAKE ONE TABLET BY MOUTH DAILY 90 Tablet 3 01/20/2023 01/25/2024 Active metFORMIN HCl 500 MG Oral Tablet (Glucophage)Indicat ions:Type 2 diabetes mellitus with hemoglobin A1c goal of less than 8.0% (HCC) TAKE ONE TABLET BY MOUTH DAILY 90 Tablet 3 04/21/2023 04/20/2024 Active Nitroglycerin 0.4 MG Sublingual Tablet Sublingual (Nitrostat)Indicati ons:CAD in [place] artery DISSOLVE 1 TABLET UNDER THE TONGUE [...] Mild 2014 PAF (paroxysmal atrial fibrillation) 07/14/2012 alf current use of anticoagulant therapy 0 07/14/2012 Overview: ICD-10 update of inactive term Dysthymia 11/30/2011 Coronary artery disease invo lving [place] coronary artery of [place] heart without angina pectoris Overview: 05/30/14 3V CABG [facility]. Prior: 5 stents-hx angina. Drug eluting, & [...] mRNA, LNP-s, No Pre serve, 2-Dose Series ([employer]) 06/11/2021,10/09/2020,09/19/2020 Covid-19, Mrna, Lnp-s, Pf, B ivalent, 30 Mcg, IM, 12 yrs and above ([employer]) 05/03/2022 H1N1 2008 Influenza, IM 06/23/2009 Pneumococcal [...] 11/15/2023 8:23 AM EDT Currently inpatient at [facility]. * Telephone Encounter - Tessy [...] Relationship to patient: Number to return call: [phone] Reason for call: Labs for the pacemaker [...] Nephana, [facility] [place] [address] [place] [address] Jose Winter MD [address] [place] [address] 12/26/2023 3:00 PM EDT Office Visit Cardiology, [facility] 132 [facility] [place] [address] Ewelina Poole PA-C [address] [place] [address] 01/24/2024 1:30 PM EDT Office Visit Urology, [facility] 132 [facility] [place] [address] George Tran MD 27 [facility] 270 [place] [address] 03/13/2024 3:00 PM EDT Cardiac Studies Cardiac Studies, [facility] [address] [facility] [place] [address] Health Maintenance Due Date Last Done Comments [...] this encounter Medical Devices Implanted Type Area Body Trimmer Upholsterer Device Identifier Shelf Expiration Date Model / Serial / Lot Sut Steel 6 M654g - [id number] Implanted:Qty: 4 on 05/30/2014 by Stanislav Hilliard MD at OR [facility] N/A: Chest JNJ : [employer] 02/07/2019 M654G / / [id number] Marker Coronary [facility] - [id number] Implanted:Qty: 2 on 05/30/2014 by Stanislav Hilliard MD at OR [facility] N/A: Aorta [employer] 03/10/2017 [facility] / / [id number] Lens Intraoc 20.5 - [id number] - [id number] Implanted:Qty: 1 on 02/18/2022 by Yandel Bowens MD at OR [facility] Left: Eye [employer]OM[employer] 11/07/2026 [id number] / [id number] / [id number] Lens Intraoc 21.5 - [id number] - [id number] Implanted:Qty: 1 on 03/04/2022 by Yandel Bowens MD at OR [facility] Right: Eye [employer]OMB 10/08/2026 [id number] / [id number] / [id number] documented as of this encounter Advance Directives [...] the patient have Health Care Power of Threshing Machine Operator? No Code Status History Code Status Date Activated Date Inactivated Comments No Code 02/18/2022 7:51 AM 02/18/2022 2:15 PM This order reflects the patients wishes and were consensually agreed upon. Question Answer Comments Discussion of Advance Directives occurred with: Patient Does the patient have a Living Will? No Does the patient have Health Care Power of Threshing Machine Operator? No Full Code 01/04/2019 6:51 PM [...] the patient have Health Care Power of Threshing Machine Operator? No Care Teams Costume Maker Relationship Specialty Start Date End Date Angelo Vazquez MD 132 [place] [address] PCP - General Family Medicine 06/24/14 documented as of this encounter
[2023-12-14] MEDS: PANTOprazole 40 MG TAB PO SCH (05:48)
[2023-12-14] MEDS: LEVOTHYROXINE SODIUM 50 MCG TABLET PO SCH (05:48)
[2023-12-14 06:41] LABS: Hematocrit (blood only) 29.5 % (42.0-52.0); Hemoglobin 9.4 g/dl (14.0-18.0); Mean Corpuscular Hemoglobin 31.6 pg (25.0-34.0); Mean Corpuscular Hgb Conc 31.9 g/dL (32.0-36.0); Mean Corpuscular Volume 99.3 fL (80.0-100.0); Mean Platelet Volume 9.9 fL (9.4-12.4); Platelet Count 105 K/uL (130-400); RDW Coefficient of Variation 16.7 % (11.5-14.5); RDW Standard Deviation 60.7 fL (36.4-46.3); Red Blood Count 2.97 M/uL (4.70-6.10); White Blood Count 7.07 K/ul (4.8-10.8)
[2023-12-14 06:55] LABS: Albumin Globulin Ratio 1.3 (0.9-2); Albumin Level 3.5 gm/dl (3.4-5.0); BUN Creatinine Ratio 28.5 (10-20); Bilirubin,Total 1.6 mg/dl (0.2-1.0); Calcium 8.7 mg/dl (8.6-10.3); Creatinine Clr Calc Pharmacy 39.9 ml/min; Est GFR (African American) 42.9 ml/min; Globulin 2.6 gm/dl (2.5-4.0); Potassium 4.6 mmol/L (3.5-5.1); Total Protein 6.1 gm/dl (6.0-8.3)
[2023-12-14 07:30] LABS: Estimated Average Glucose 97 mg/dl
[2023-12-14] MEDS ORDERED: CEFEPIME 2,000 MG in SYRINGE 0 ML IV SCH (07:30)
[2023-12-14] MEDS ORDERED: NON-FORMULARY MEDICATION (Iron,Carbonyl-Vitamin C [Vitron-C] 65 mg iron- 125 mg Tablet,Del PO SCH (09:00)
[2023-12-14] MEDS ORDERED: FOLIC ACID 1 MG TAB PO SCH (09:00)
--- NOTE | 2023-12-14 09:11 | Ultrasound Report ---
ABDOMINAL ULTRASOUND, RIGHT UPPER QUADRANT HISTORY: Elevated LFTs, r/o gallstone etiology. COMPARISON: Abdomen and pelvis CT 07/21/2023. FINDINGS: Pancreas: The pancreatic head and tail are obscured by overlying bowel gas. The remaining portions of the pancreas are within normal limits. Liver: Subtle nodular contour to the liver suggestive of early cirrhosis. No hepatic masses. The main portal vein is patent. Gallbladder: No gallbladder wall thickening measuring 3.5 mm. There is a 14 x 8 mm stone near the gal lbladder neck. Negative sonographic Oneal sign. CBD: 4 mm. Right kidney: No hydronephrosis. There is an 8 mm lower pole cyst, unchanged. Miscellaneous: Small right pleural effusion and trace perihepatic ascites. IMPRESSION: 1. Subtle nodular contour to the liver suggestive of early cirrhosis. 2. Small right pleural effusion and trace perihepatic ascites. 3. Cholelithiasis. There is mild gallbladder wall thickening. This may be due to the patient's cirrho sis given the negative sonographic Oneal sign. Clinical correlation recommended. 4. The pancreas was mostly obscured by overlying bowel gas ACT 112: Negative or not required by law. Electronically signed by: Ac Bullock M.D. 12/14/2023 9:10 AM
[2023-12-14] MEDS: FINASTERIDE 5 MG TAB PO SCH (09:16)
[2023-12-14] MEDS: POTASSIUM CHLORIDE CRTAB 20 MEQ TABCR PO SCH (09:16)
[2023-12-14] MEDS: ASPIRIN 81 MG ECTAB PO SCH (09:17)
[2023-12-14] MEDS: FERROUS SULFATE 325 MG TAB PO SCH (09:17)
[2023-12-14] MEDS: METOPROLOL SUCC 25MG EXT REL TAB PO SCH (09:17)
[2023-12-14] MEDS: ASCORBIC ACID 500 MG TAB PO SCH (09:17)
[2023-12-14] MEDS: POLYETHYLENE (MIRALAX) 17 GM PACK PO SCH (09:17)
[2023-12-14] MEDS: oxyCODONE HCL IR 5 MG TAB (IMMEDIATE RELEASE) PO PRN (09:21)
[2023-12-14] MEDS: FUROSEMIDE 40 MG/4 ML VIAL IV SCH (09:22)
--- NOTE | 2023-12-14 11:21 | Cardiology Consultation ---
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 Recent mechanical fall noted with multiple injuries as well as recent pacemaker implantation. Blood cultures pending. Recommendations: Agree with utilization of IV furosemide, 40 mg twice per day Monitor renal function and potassium status closely If kidney dysfunction continues to improve would continue current dose of Eliquis anticoagulation Moser Sales Lead Generator contacted for device interrogation Refer for resting echocardiography Further recommendations pending evaluation by Dr. Mcpherson and patient's ongoing hospitalization. I spent a total of 55 minutes on the date of service in preparation, delivery, and documentation of the care provided to this patient excluding any time spent in the performance of separately billed services. This visit was a split-shared visit with the substantive portion of the medical decision making performed by the supervising beach attendant/billing provider. Supervising Physician Co-Signing Physician Notes Attending attestation: Case reviewed with the advanced practitioner. I have personally performed a history and physical examination on the patient. I have reviewed the advanced practitioner's documentation on the date of service referenced in note, and I agree with, and take responsibility for the plan of care. Dementia noted. Spouse at the bedside who is actually a patient of mine. Telemetry reveals sinus rhythm with ventricular pacing in the 60s to 70s. EKG reveals sinus rhythm at 64 bpm with ventricular pacing. -Multifactorial formula overload, however not certain that this is cardiac I spent a total of 20 minutes coordinating, documenting, and providing care for this patient excluding time spent in the performance of separately billed services or time spent by another provider. Marco Mcpherson, DO History of Present Illness Reason for Consultation: Recent pacemaker placement, aortic valve stenosis Requesting Physician: Wilmer Attending Physician: Abigail History of Present Illness Mr. Srini Ch Sr. is a 88-year-old male who suffered a mechanical fall on November 14, 2023 after using the bathroom, resultant closed right hip fracture, acute fractures of the T11 and T12 vertebral bodies, and possibly mildly displaced fractures of the right anterior ninth and 10th ribs. During that admission, cardiology consultation was requested due to Tachy-Alejandro Syndrome. Prior to the fall the patient was scheduled for permanent pacemaker implantation on Tuesday, November 16, 2023 orthopedic insults were managed conservatively. Due to logistics patient underwent dual-chamber pacemaker implantation by Dr. Cornell on November 16, 2023 without complication. Patient was discharged to [facility] on November 18, 2023. On December 12, 2023 patient he left [facility] for home. After discharge from [facility] the patient's family noted diffuse volume overload including abdominal, testicular, and bilateral lower extremity edema. Weakness and worsening shortness of breath reported along with worsening confusion, agitation, and an inability to urinate. Patient presented to [facility] on December 13, 2023. Head CT showed no acute intracranial process. Chest x-ray was interpreted by the radiologist as revealing cardiomegaly with possible mild pulmonary edema and small pleural effusions with left basilar predominant opacities favoring atelectasis. Venous duplex negative for DVT, chronically prescribed Eliquis anticoagulation. Gallbladder ultrasound suggestive of possible early cirrhosis, also revealing trace perihepatic ascites, small right pleural effusion, cholelithiasis with mild gallbladder wall thickening. Acute urinary retention noted (Olivo catheter placed). Possible sacral pressure ulcers observed. Laboratory work revealed a normal white blood cell count. H&H on presentation were 10.5 and 33.2. Platelet count was 119, mild thrombocytopenia. Sodium was 132. Potassium was 4.8. BUN and creatinine were elevated, acute kidney injury, BUN 44, creatinine 1.77. LFTs abnormal with a total bilirubin of 1.6, AST 127, ALT 153, alk phos 140. High-sensitivity troponin mildly elevated 84.3 then 72.4. EKG revealed an atrial sensed ventricular paced rhythm. Patient seen and examined. No family members present at bedside. Complaints voice include dry mouth and some itching of the lower back. He denies chest pain. No shortness of breath, lying at approximately 30 degrees with mild JVD and hepatojugular reflux. Diffuse volume overload observed with abdominal distention, scrotal edema, bilateral lower extremity peripheral edema. Past Medical/Surgical History: ASCVD Multiple prior PCI's, last in November cardiac catheterization with multivessel CAD - LM 50% stenosis, LAD 80% stenosis, LCx 75% proximal stenosis, OM 90%, RCA 50% ulcerative lesion. Status post May 30, 2014 on pump CABG x x 3 Hackett-LAD, Ao-dRCA, Ao-OM No history of myocardial infarction. 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 Cornell at [facility]. Pulse generator: Layar Assurity MRI Model Number [id number] SN: [id number]. Right atrial lead: Moser SJM Tendril STS 8TC SN: [id number]. Left bundle lead: Moser SJM Tendril STS 8TC SN: [id number] Hyponatremia, SIADH Hypertension Dyslipidemia Type 2 diabetes mellitus Remote abnormal sleep study GERD Arthritis s/p right hip and left knee replacements Chronic back pain s/p lumbar surgery Peripheral neuropathy Nocturia Depression BPH Dementia Family History: Positive for CAD in his father. Social History: Nonsmoker. No alcohol. No illegal drug use. . Four children. 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 Originally from [place]. Allergies Allergy/AdvReac Type Severity Reaction Status Date / Time iodine Allergy Severe DUE TO Verified 12/13/23 15:57 SHELLFISH ALLERGY-IODINATED DYE-UNKNOWN morphine Allergy Severe Anaphylaxis Verified 12/13/23 15:57 shellfish derived Allergy Severe ANAPHYLAXIS Verified 12/13/23 15:57 bee venom protein (honey bee) Allergy Intermediate EXTRA Verified 12/13/23 15:57 SWELLING AT SITES Penicillins Allergy Intermediate RASH Verified 12/13/23 15:57 Home Medications Medication Instructions Recorded Confirmed Type aspirin 81 mg tablet,delayed 81 mg PO QAM 07/21/19 12/13/23 History release atorvastatin 80 mg tablet 80 mg PO HS 07/21/19 12/13/23 History metformin 500 mg tablet 500 mg PO QAM 07/21/19 12/13/23 History pantoprazole 40 mg tablet,delayed 40 mg PO DAILYBB 07/21/19 12/13/23 History release nitroglycerin 0.4 mg sublingual 0.4 mg sublingual Q5M PRN Chest 05/31/21 12/13/23 History tablet Pain finasteride 5 mg tablet 5 mg PO QAM 11/29/22 12/13/23 History iron,carbonyl 65 mg-vitamin C 125 1 tab PO QAM 11/29/22 12/13/23 History mg tablet,delayed release (Vitron-C) levothyroxine 50 mcg tablet 50 mcg PO DAILYBB 11/29/22 12/13/23 History metoprolol succinate 25 mg 25 mg PO DAILY 11/29/22 12/13/23 History tablet,extended release 24 hr apixaban 5 mg tablet (Eliquis) 5 mg PO Q12H #60 tabs 12/01/22 12/13/23 Rx potassium chloride 20 mEq 20 meq PO DAILY #30 tabs 12/01/22 12/13/23 Rx tablet,extended release acetaminophen 650 mg 1,300 mg PO Q8H PRN Pain 07/21/23 12/13/23 History tablet,extended release (Tylenol 8 Hour) escitalopram oxalate 10 mg tablet 10 mg PO QAM 07/21/23 12/13/23 History folic acid 1 mg tablet 1 mg PO DAILY 11/14/23 12/13/23 History furosemide 40 mg tablet (Lasix) 40 mg PO DAILY 11/14/23 12/13/23 History diclofenac sodium 1 % topical gel 2 g EXT Q6H PRN pain #100 grams 11/18/23 12/13/23 Rx (Voltaren Arthritis Pain) oxycodone 5 mg tablet 5 mg PO Q8H PRN pain #10 tabs 11/18/23 12/13/23 Rx urea 15 gram oral powder packet 15 g PO BID #8 ea 11/18/23 12/13/23 Rx (Ure-Na) fluticasone propionate 50 1 spray intranasal DAILY PRN 12/13/23 12/13/23 History mcg/actuation nasal Congestion spray,suspension sodium chloride 1,000 mg soluble 1,000 mg PO TID 12/13/23 12/13/23 History tablet tizanidine 4 mg tablet 4 mg PO BID PRN MUSCLE SPASMS 12/13/23 12/13/23 History Patient History Medical History CHF (congestive heart failure) Anemia Ground-level fall ASCVD (arteriosclerotic cardiovascular disease) Closed right hip fracture Compression fracture of T12 vertebra Compression fracture of lumbar vertebra Labile blood pressure SIADH (syndrome of inappropriate ADH production) COVID-19 Nausea Coronary artery disease Supratherapeutic INR Atypical chest pain Lumbar stenosis Paroxysmal atrial fibrillation Surgical History History of coronary artery bypass graft History of carpal tunnel surgery "bilateral" S/P total hip arthroplasty S/P total knee arthroplasty 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; [place]" History of percutaneous coronary intervention S/P lumbar microdiscectomy H/O heart artery stent Family History Father Coronary heart disease Social History Smoking Status: Never smoker Second Hand Exposure: No; Do You Dip or Chew Tobacco: No; Hx Alcohol Use: No Hx Substance Use: No Preferred Language: Anguillan Communication Ability: Effective Psychological Tests Sales Agent Required: No Beliefs That Will Affect Care: None marital status: Current Living Situation: Spouse current occupational status: retired Other Information That Helps Us Care for You: No Feels Safe at Home: Yes Safety Concerns: Feels Safe At This Time Assistive Devices: Walker Review of Systems Review of Systems: A complete and accurate review of systems was unable to be obtained (dementia) Physical Exam Physical Exam: General: Alert to person but not to place or time. HENT: Normocephalic. Atraumatic. Eyes: PER. Conjunctiva pink, sclera clear. Neck: JVD. HJR. Chest: The left subclavian pacemaker incision looks great. No erythema, ecchymosis, or hematoma. Heart: Regular paced. Grade II/ systolic murmur. No diastolic murmur. No rub. Lungs: Clear to auscultation anteriorly. Abdomen: Soft. Distended. No organomegaly. Extremities: 2+ edema. + Ecchymosis. No clubbing. No cyanosis Pulses: Posterior tibial=0/4. Results & Data Vital Signs (Past 12 Hours) Vital Signs Temp Pulse Pulse Resp BP Pulse Ox O2 Del Method 12/14/23 11:10 36.6 C 70 17 148/76 H 97 Room Air 12/14/23 10:41 Room Air 12/14/23 08:21 70 12/14/23 07:15 36.4 C L 114 H 17 131/91 97 Room Air 12/14/23 02:48 35.4 C L 72 18 123/85 98 Room Air Laboratory Results Cardiac Enzymes 12/13/23 12/13/23 12/14/23 Range/Units 14:06 17:24 05:44 AST 127 H 199 H (13-39) U/L Troponin I High Sens 84.3 H* 72.4 H* D (0-20) pg/ml B-Natriuretic Peptide > 4700 H (0-100) pg/ml Coagulation 12/13/23 Range/Units 14:06 B-Natriuretic Peptide > 4700 H (0-100) pg/ml CBC 12/13/23 12/14/23 Range/Units 14:06 05:44 WBC 7.45 7.07 (4.8-10.8) K/ul RBC 3.25 L 2.97 L (4.70-6.10) M/uL Hgb 10.5 L 9.4 L (14.0-18.0) g/dl Hct 33.2 L 29.5 L (42.0-52.0) % Plt Count 119 L 105 L (130-400) K/uL Neut # (Auto) 5.83 (1.40-6.50) K/uL Lymph # (Auto) 0.67 L (1.20-3.40) K/uL Bledsoe # (Auto) 0.84 H (0.11-0.59) K/uL Eos # (Auto) 0.03 (0.00-0.50) K/uL Baso # (Auto) 0.02 (0.00-0.20) K/uL Comprehensive Metabolic Panel 12/13/23 12/14/23 Range/Units 14:06 05:44 Sodium 132 L 134 L (136-145) mmol/L Potassium 4.8 4.6 (3.5-5.1) mmol/L Chloride 100 102 (98-107) mmol/L Carbon Dioxide 21 20 L (21-32) mmol/L BUN 44 H 47 H (6-23) mg/dl Creatinine 1.77 H 1.65 H (0.6-1.4) mg/dl Glucose 124 H 107 H (70-99(Fasting)) mg/dl Calcium 8.9 8.7 (8.6-10.3) mg/dl AST 127 H 199 H (13-39) U/L ALT 153 H 228 H (7-52) U/L Alkaline Phosphatase 140 H 115 H (34-104) U/L Total Protein 7.0 6.1 (6.0-8.3) gm/dl Albumin 4.0 3.5 (3.4-5.0) gm/dl Intake and Output 12/13/23 12/14/23 12/14/23 22:59 06:59 14:59 Intake Total 200 / 200 Output Total 950 / 1100 150 / 1100 Balance -750 / -900 -150 / -900 Intake: Oral 200 / 200 Output: Urine Amount (Catheter) 950 / 1100 150 / 1100 Olivo/Indwelling 950 / 1100 150 / 1100 Other: Other Intake Source npo Weight 101.2 kg 99.8 kg Weight Measurement Method [facility] (5) Aortic stenosis Cardiac valve disease etiology: nonrheumatic Qualified Code(s): I35.0 - Nonrheumatic aortic (valve) stenosis
--- NOTE | 2023-12-14 16:20 | Hospitalist Progress Note ---
Date of Service December 14, 2023 Assessment & Plan (1) Acute on chronic heart failure with preserved ejection fraction (HFpEF): (2) Pulmonary edema: (3) Aortic stenosis: (4) Transaminitis: (5) Elevated troponin: (6) Swelling of the testicles: Plan: Srini Ch is an 88 y/o M with PMHx of DM type II, diabetic retinopathy, DM kidney disease, SIADH, dyslipidemia, acquired hypothyroidism, paroxysmal A-fib [ on Eliquis], CAD, HTN, nonrheumatic aortic valve stenosis s/p pacemaker placement, chronic systolic heart failure, GERD, BPH with obstruction/LUTS, urge incontinence, depression and other problems listed below who presented to the ED today for evaluation of SOB and bilateral leg/testicular swelling. Of note, patient was recently hospitalized last month [11/14/23-11/18/23] s/p fall and subsequent closed right hip fracture requiring nonoperative management. 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 Patient was also seen by orthospine [Dr. Camp] during that hospitalization for compression fractures of T11 and T12. Per discharge summary documentation, he was to follow-up with the orthospine office in ~2 weeks upon d/c for additional radiographs at the thoracolumbar junction AP and lateral views. Patient was also started on an iron supplement upon discharge d/t acute on chronic anemia. His hemoglobin during that hospitalization stabilized around 8, likely 2/2 blood loss as a result of the hip fracture that occurred. Appears baseline hemoglobin around 11-12. Patient was d/c to [facility] for rehabilitation therapy. Most recent echo performed on 11/17/2023 and revealed the following findings: moderate concentric LVH, thickened/angulated basal septum consistent with sigmoid septum, mild global hypokinesis of the left ventricle, LVEF = 45-50%, calcified aortic valve leaflets w/ restricted leaflet mobility and mild to moderate aortic stenosis, moderate mitral annular calcification and trace mitral regurgitation. Vital signs on admission: BP 123/72, HR 81, RR 18, temp 36.7 C, SpO2 95% on RA. Creatinine elevated at 1.77 --> Baseline Cr ~ 0.88 - Evidence of KARLENE on admission. Initial troponin 84.3> 72 BNP >4700 on admission CXR suggestive of mild pulmonary edema Bilateral LE venous doppler displayed NO evidence of DVT w/in the R or L lower extremity. Patient was discharged on oral urea. However, he was placed on 1 g salt tablets 3 times a day at rehab for hyponatremia. Started on IV Lasix 40 mg twice a day Strict input and output monitoring with Olivo catheter. Daily weights Bowel regimen in place, daily Miralax scheduled. Can continue PROJECT PRODUCT MANAGER aspirin. PRN PO Tylenol in place for mild/moderate pain. Will continue PROJECT PRODUCT MANAGER oxycodone therapy for severe pain. Avoid salt tablets going forward; will plan to do oral urea for hyponatremia if patient's sodium trends down (7) Acute urinary retention: Plan: As per HPI, patient had not urinated since being home from [facility] yesterday. He would attempt to urinate, but had no success in doing so. -Olivo catheter placed in the ED, manage daily upon transfer. -Monitor testicular swelling, pain control regimen in place. - Plan to do trial of void in next few days. (8) KARLENE (acute kidney injury): Plan: likely cardiorenal syndrome Continue to monitor renal function and hold any nephrotoxic medications for the time being. Continue iv lasix (9) Pressure injury of skin of sacral region: Plan: Evaluation of the sacral region revealed few superficial skin ulcers; no indication of pressure injury at this time Continue to monitor Every 2 hours turns (10) Confusion: Plan: As per HPI, family reports some recent confusion and agitation since being home. No recent falls or head trauma since being home or at [facility] per the family's recollection. CT head- no acute findings -Monitor for any signs of increasing delirium while hospitalized. (11) DMII (diabetes mellitus, type 2): Plan: -Will hold PROJECT PRODUCT MANAGER metformin therapy, initiate SSI regimen while hospitalized. -Repeat Hgb A1C in the AM --> Last recorded Hgb A1C 6.5 on 11/30/22. (12) Dyslipidemia: Plan: Continue lipitor (13) Gastroesophageal reflux disease: Plan: -Can continue PROJECT PRODUCT MANAGER pantoprazole while hospitalized. 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 -Continue PROJECT PRODUCT MANAGER Eliquis therapy for DVT prophylaxis while hospitalized. (17) Hypertension: Plan: -Will continue PROJECT PRODUCT MANAGER metoprolol succinate w/ HOLD PARAMETERS. (18) Chronic hyponatremia: Plan: Hx of chronic hyponatremia --> Sodium 132 on admission. -STOP salt tablets -Continue to monitor sodium level (19) Acquired hypothyroidism: Plan: TSH on admission slightly elevated @ 4.575 --> Will continue PROJECT PRODUCT MANAGER levothyroxine for now. (20) History of depression: (21) Skin irritation: Plan: As per HPI --> reports that he has some skin irritation in his right groin region that has been ongoing for couple of days, she has been applying protective ointment to the region w/o much improvement. -Resembles intertriginous candidiasis on examination. on clotrimazole cream to be applied to the region BID. (22) History of anemia: Plan: -Will continue PROJECT PRODUCT MANAGER iron supplementation. -Repeat CBC in AM, trend levels. DVT Prophylaxis: Eliquis Code Status: Full Code PCP: Angelo Vazquez MD Dispo: Admit to PCU/Telemetry Time spent evaluating patient, direct bedside care, chart review, placing orders, interpretation of diagnostic studies, discussion with consultants, patient, and family members, as well as other required patient management activities is 50 minutes Please note the above document was generated using voice recognition software. It may contain grammatical, syntax or spelling errors. Any formal questions or concerns about the content, text or information contained within the body of this dictation should be directly addressed to the provider for clarification Admission and Anticipated Discharge Date Admission Date: December 13, 2023 Subjective Patient seen and examined at bedside He is sleepy but awake evaluate voice. He is not in any distress or pain. No significant events overnight Review of Systems Review of Systems: All systems reviewed & are unremarkable except as noted in Subjective Physical Exam Physical Exam: General Appearance Comfortable; not in any distress. Alert and oriented x 2 Respiratory: Crackles bilaterally on bases Cardiovascular: Regular rate, rhythm, normal peripheral pulses. Significant pitting edema in bilateral lower extremities. Chest: Bandage in place on the upper right chest aspect from previous pacemaker placement, no discharge or surrounding erythema. Abdomen/GI: Normal bowel sounds, soft, nontender, no hepatosplenomegaly. : Testicular swelling/edema present, tender to palpation. Extremities/Musculoskeletal: 3+ pitting edema. bruise on left hip Neurologic: PERRL, EOMI, accommodation nl, no face palsy, no dysarthria, normal sensation to touch in bilateral LE. Psychiatric: A+Ox2, somewhat agitated. Awake and alert, no acute sensory deficits. Skin: some areas of superficial ulcers. Results & Data Results & Data Vital Signs (Past 12 Hours) Vital Signs Temp Pulse Pulse Resp BP Pulse Ox O2 Del Method 12/14/23 15:49 36.9 C 66 17 133/84 97 Room Air 12/14/23 11:10 36.6 C 70 17 148/76 H 97 Room Air 12/14/23 10:41 Room Air 12/14/23 08:21 70 12/14/23 07:15 36.4 C L 114 H 17 131/91 97 Room Air (2) Pulmonary edema Chronicity: acute Qualified Code(s): J81.0 - Acute pulmonary edema (3) Aortic stenosis Cardiac valve disease etiology: nonrheumatic Qualified Code(s): I35.0 - Nonrheumatic aortic (valve) stenosis (9) Pressure injury of skin of sacral region Pressure injury stage: unspecified pressure injury stage Qualified Code(s): L89.159 - Pressure ulcer of sacral region, unspecified stage (11) DMII (diabetes mellitus, type 2) Diabetes mellitus snf insulin use: without terminal worker use Diabetes mellitus complication status: with other specified complication Qualified Code(s): E11.69 - Type 2 diabetes mellitus with other specified complication (13) Gastroesophageal reflux disease Esophagitis presence: esophagitis presence not specified Qualified Code(s): K21.9 - Gastro-esophageal reflux disease without esophagitis (17) Hypertension Hypertension type: essential hypertension Qualified Code(s): I10 - Essential (primary) hypertension
[2023-12-14] MEDS: ATORVASTATIN 40 MG TAB PO SCH (20:33)
[2023-12-15 08:34] LABS: Basophils # (auto) 0.03 K/uL (0.00-0.20); Basophils % (auto) 0.3 %; Eosinophils # (auto) 0.13 K/uL (0.00-0.50); Eosinophils % (auto) 1.5 %; Hematocrit (blood only) 31.8 % (42.0-52.0); Hemoglobin 10.1 g/dl (14.0-18.0); Immature Granulocytes # (auto) 0.05 K/uL (0.01-0.20); Immature Granulocytes % (auto) 0.6 %; Lymphocytes # (auto) 1.31 K/uL (1.20-3.40); Mean Corpuscular Hemoglobin 31.7 pg (25.0-34.0); Mean Corpuscular Hgb Conc 31.8 g/dL (32.0-36.0); Mean Corpuscular Volume 99.7 fL (80.0-100.0); Monocytes # (auto) 0.97 K/uL (0.11-0.59); Monocytes % (auto) 11.1 %; Neutrophils # (auto) 6.22 K/uL (1.40-6.50); Neutrophils % (auto) 71.5 %; Platelet Count 104 K/uL (130-400); RDW Coefficient of Variation 17.1 % (11.5-14.5); RDW Standard Deviation 61.8 fL (36.4-46.3); Red Blood Count 3.19 M/uL (4.70-6.10); White Blood Count 8.71 K/ul (4.8-10.8)
[2023-12-15 08:49] LABS: BUN Creatinine Ratio 30.1 (10-20); Calcium 8.5 mg/dl (8.6-10.3); Creatinine Clr Calc Pharmacy 43.3 ml/min; Est GFR (Non-African American) 40.6 ml/min; Potassium 4.1 mmol/L (3.5-5.1)
--- NOTE | 2023-12-15 09:02 | Cardiology Progress Note ---
Date of Service December 15, 2023 Assessment & Plan (1) Urinary retention: (2) Volume overload: (3) Tachy-santy syndrome: (4) S/P placement of cardiac pacemaker: (5) Aortic stenosis: Plan Complex 88-year-old male with dementia, multiple medical issues detailed below, readmitted to this facility on December 13, 2023 due to inability to urinate, multifactorial volume overload, worsening confusion and agitation. Recent mechanical fall noted with multiple injuries as well as recent pacemaker implantation. Volume overload improved. Device interrogated on 12/14/2023, functioning appropriately. Telemetry benign. Recommendations: Continue IV furosemide Monitor renal function and electrolytes closely Continue metoprolol succinate 25 mg/day, aspirin 81 mg/day, atorvastatin 80 mg/day, and Apixaban 5 mg twice per day I spent a total of 32 minutes on the date of service in preparation, delivery, and documentation of the care provided to this patient excluding any time spent in the performance of separately billed services. This visit was a split-shared visit with the substantive portion of the medical decision making performed by the supervising recovery engineer/billing provider. Admission and Anticipated Discharge Date Admission Date: December 13, 2023 Supervising Physician Co-Signing Physician Notes Attending attestation: Case reviewed with the advanced practitioner. I have personally performed a history and physical examination on the patient. I have reviewed the advanced practitioner's documentation on the date of service referenced in note, and I agree with, and take responsibility for the plan of care. Dementia noted. No additive subjective history provided from patient today. Edema improved. Pacer pocket healing well. Urea -Na tablets have been stopped. Sodium levels improved to 134 mmol/l having been down to 123 mmol/l on 11/14/23. Continue furosemide. I spent a total of 20 minutes coordinating, documenting, and providing care for this patient excluding time spent in the performance of separately billed services or time spent by another provider. Marco Mcpherson, DO Subjective Patient seen and examined while eating breakfast. Hard of heading. Demented. No chest pain. Edema has improved. Telemetry: Paced in the 70's and 80's. Review of Systems Review of Systems: A complete and accurate review of systems was unable to be obtained (dementia) Physical Exam Physical Exam: General: Alert to person HENT: Normocephalic. Atraumatic. Eyes: PER. Conjunctiva pink, sclera clear. Neck: No overt JVD. Chest: The left subclavian pacemaker incision looks great. Heart: Regular paced. Grade II/ systolic murmur. No diastolic murmur. No rub. Lungs: Clear to auscultation anteriorly. Abdomen: Soft. Distended. No organomegaly. Extremities: 1+ edema. + Ecchymosis. No clubbing. No cyanosis Pulses: Posterior tibial=0/4. Results & Data Vital Signs (Past 12 Hours) Vital Signs Temp Pulse Pulse Resp BP Pulse Ox O2 Del Method 12/15/23 07:56 36.5 C 86 18 143/96 H 93 Room Air 12/15/23 07:46 72 12/15/23 04:29 36.7 C 77 18 131/69 97 Room Air 12/14/23 23:42 73 12/14/23 23:29 37.0 C 116 H 18 110/81 97 Room Air Laboratory Results CBC 12/15/23 Range/Units 08:21 WBC 8.71 (4.8-10.8) K/ul RBC 3.19 L (4.70-6.10) M/uL Hgb 10.1 L (14.0-18.0) g/dl Hct 31.8 L (42.0-52.0) % Plt Count 104 L (130-400) K/uL Neut # (Auto) 6.22 (1.40-6.50) K/uL Lymph # (Auto) 1.31 (1.20-3.40) K/uL [place] # (Auto) 0.97 H (0.11-0.59) K/uL Eos # (Auto) 0.13 (0.00-0.50) K/uL Baso # (Auto) 0.03 (0.00-0.20) K/uL Comprehensive Metabolic Panel 12/15/23 Range/Units 08:21 Sodium 134 L (136-145) mmol/L Potassium 4.1 (3.5-5.1) mmol/L Chloride 101 (98-107) mmol/L Carbon Dioxide 23 (21-32) mmol/L BUN 46 H (6-23) mg/dl Creatinine 1.53 H (0.6-1.4) mg/dl Glucose 134 H (70-99(Fasting)) mg/dl Calcium 8.5 L (8.6-10.3) mg/dl Intake and Output 12/14/23 12/15/23 12/15/23 22:59 06:59 14:59 Intake Total 75 / 335 Output Total 950 / 2500 550 / 2500 Balance -950 / -2165 -475 / -2165 Intake: Oral 75 / 335 Output: Urine Amount (Catheter) 950 / 2500 550 / 2500 Olivo/Indwelling 950 / 2500 550 / 2500 Other: Weight 101.2 kg (5) Aortic stenosis Cardiac valve disease etiology: nonrheumatic Qualified Code(s): I35.0 - Nonrheumatic aortic (valve) stenosis
[2023-12-15] MEDS: ACETAMINOPHEN 325 MG TAB PO PRN (11:06)
[2023-12-15] MEDS: MAGNESIUM HYDROXIDE SUSP 30 ML UDC PO SCH (13:34)
[2023-12-15] MEDS: FUROSEMIDE 40 MG/4 ML VIAL IV SCH (13:35)
--- NOTE | 2023-12-15 15:31 | Hospitalist Progress Note ---
Date of Service December 15, 2023 Assessment & Plan (1) Acute on chronic heart failure with preserved ejection fraction (HFpEF): (2) Pulmonary edema: (3) Aortic stenosis: (4) Transaminitis: (5) Elevated troponin: (6) Swelling of the testicles: Plan: Srini Ch is an 88 y/o M with PMHx of DM type II, diabetic retinopathy, DM kidney disease, SIADH, dyslipidemia, acquired hypothyroidism, paroxysmal A-fib [ on Eliquis], CAD, HTN, nonrheumatic aortic valve stenosis s/p pacemaker placement, chronic systolic heart failure, GERD, BPH with obstruction/LUTS, urge incontinence, depression and other problems listed below who presented to the ED today for evaluation of SOB and bilateral leg/testicular swelling. Of note, patient was recently hospitalized last month [11/14/23-11/18/23] s/p fall and subsequent closed right hip fracture requiring nonoperative management. 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 Patient was also seen by orthospine [Dr. Camp] during that hospitalization for compression fractures of T11 and T12. Per discharge summary documentation, he was to follow-up with the orthospine office in ~2 weeks upon d/c for additional radiographs at the thoracolumbar junction AP and lateral views. Patient was also started on an iron supplement upon discharge d/t acute on chronic anemia. His hemoglobin during that hospitalization stabilized around 8, likely 2/2 blood loss as a result of the hip fracture that occurred. Appears baseline hemoglobin around 11-12. Patient was d/c to [facility] for rehabilitation therapy. Most recent echo performed on 11/17/2023 and revealed the following findings: moderate concentric LVH, thickened/angulated basal septum consistent with sigmoid septum, mild global hypokinesis of the left ventricle, LVEF = 45-50%, calcified aortic valve leaflets w/ restricted leaflet mobility and mild to moderate aortic stenosis, moderate mitral annular calcification and trace mitral regurgitation. Vital signs on admission: BP 123/72, HR 81, RR 18, temp 36.7 C, SpO2 95% on RA. Creatinine elevated at 1.77 --> Baseline Cr ~ 0.88 - Evidence of KARLENE on admission. Initial troponin 84.3> 72 BNP >4700 on admission CXR suggestive of mild pulmonary edema Bilateral LE venous doppler displayed NO evidence of DVT w/in the R or L lower extremity. Patient was discharged on oral urea. However, he was placed on 1 g salt tablets 3 times a day at rehab for hyponatremia. Increase lasix to 40mg tid Strict input and output monitoring with Olivo catheter. Daily weights Bowel regimen in place, daily Miralax scheduled. Can continue TRANSPORTATION OPERATIONS MANAGER aspirin. PRN PO Tylenol in place for mild/moderate pain. Will continue TRANSPORTATION OPERATIONS MANAGER oxycodone therapy for severe pain. Avoid salt tablets going forward; will plan to do oral urea for hyponatremia if patient's sodium trends down (7) Acute urinary retention: Plan: As per HPI, patient had not urinated since being home from [facility] yesterday. He would attempt to urinate, but had no success in doing so. -Olivo catheter placed in the ED, manage daily upon transfer. -Monitor testicular swelling, pain control regimen in place. - Plan to do trial of void in next few days. (8) KARLENE (acute kidney injury): Plan: likely cardiorenal syndrome Continue to monitor renal function and hold any nephrotoxic medications for the time being. Continue iv lasix (9) Pressure injury of skin of sacral region: Plan: Evaluation of the sacral region revealed few superficial skin ulcers; no indication of pressure injury at this time Continue to monitor Every 2 hours turns (10) Confusion: Plan: As per HPI, family reports some recent confusion and agitation since being home. No recent falls or head trauma since being home or at [facility] per the family's recollection. CT head- no acute findings -Monitor for any signs of increasing delirium while hospitalized. (11) DMII (diabetes mellitus, type 2): Plan: -Will hold TRANSPORTATION OPERATIONS MANAGER metformin therapy, initiate SSI regimen while hospitalized. Last recorded Hgb A1C 6.5 on 11/30/22. (12) Dyslipidemia: Plan: Continue lipitor (13) Gastroesophageal reflux disease: Plan: -Can continue TRANSPORTATION OPERATIONS MANAGER pantoprazole while hospitalized. 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 -Continue TRANSPORTATION OPERATIONS MANAGER Eliquis therapy for DVT prophylaxis while hospitalized. (17) Hypertension: Plan: -Will continue TRANSPORTATION OPERATIONS MANAGER metoprolol succinate w/ HOLD PARAMETERS. (18) Chronic hyponatremia: Plan: Hx of chronic hyponatremia --> Sodium 132 on admission. -STOP salt tablets -Continue to monitor sodium level (19) Acquired hypothyroidism: Plan: TSH on admission slightly elevated @ 4.575 --> Will continue TRANSPORTATION OPERATIONS MANAGER levothyroxine for now. (20) History of depression: (21) Skin irritation: Plan: As per HPI --> reports that he has some skin irritation in his right groin region that has been ongoing for couple of days, she has been applying protective ointment to the region w/o much improvement. -Resembles intertriginous candidiasis on examination. on clotrimazole cream to be applied to the region BID. (22) History of anemia: Plan: -Will continue TRANSPORTATION OPERATIONS MANAGER iron supplementation. -Repeat CBC in AM, trend levels. DVT Prophylaxis: Eliquis Code Status: Full Code PCP: Angelo Vazquez MD Dispo: Admit to PCU/Telemetry Discussed plan of care with patient's at bedside. Answer questions/queries Time spent evaluating patient, direct bedside care, chart review, placing orders, interpretation of diagnostic studies, discussion with consultants, patient, and family members, as well as other required patient management activities is 50 minutes Please note the above document was generated using voice recognition software. It may contain grammatical, syntax or spelling errors. Any formal questions or concerns about the content, text or information contained within the body of this dictation should be directly addressed to the provider for clarification Admission and Anticipated Discharge Date Admission Date: December 13, 2023 Subjective Patient seen and examined at bedside. He reports of nausea and belching; denies lower abdominal discomfort. Urine output of 2600 cc in last 24 hours Vital stable Review of Systems Review of Systems: All systems reviewed & are unremarkable except as noted in Subjective Physical Exam Physical Exam: General Appearance Comfortable; not in any distress. Alert and oriented x 2 Respiratory: Crackles bilaterally on bases Cardiovascular: Regular rate, rhythm, normal peripheral pulses. Significant pitting edema in bilateral lower extremities. Abdomen/GI: Normal bowel sounds, soft, nontender, : Testicular swelling/edema present, tender to palpation. Extremities/Musculoskeletal: 2+ pitting edema. bruise on left hip Neurologic: PERRL, EOMI, accommodation nl, no face palsy, no dysarthria, normal sensation to touch in bilateral LE. Psychiatric: A+Ox2, somewhat agitated. Awake and alert, no acute sensory deficits. Skin: some areas of superficial ulcers. Results & Data Results & Data Vital Signs (Past 12 Hours) Vital Signs Temp Pulse Pulse Resp BP Pulse Ox O2 Del Method 12/15/23 15:16 83 12/15/23 12:20 Room Air 12/15/23 11:28 36.7 C 78 20 123/76 94 Room Air 12/15/23 07:56 36.5 C 86 18 143/96 H 93 Room Air 12/15/23 07:46 72 12/15/23 04:29 36.7 C 77 18 131/69 97 Room Air (2) Pulmonary edema Chronicity: acute Qualified Code(s): J81.0 - Acute pulmonary edema (3) Aortic stenosis Cardiac valve disease etiology: nonrheumatic Qualified Code(s): I35.0 - Nonrheumatic aortic (valve) stenosis (9) Pressure injury of skin of sacral region Pressure injury stage: unspecified pressure injury stage Qualified Code(s): L89.159 - Pressure ulcer of sacral region, unspecified stage (11) DMII (diabetes mellitus, type 2) Diabetes mellitus longterm insulin use: without longterm use Diabetes mellitus complication status: with other specified complication Qualified Code(s): E11.69 - Type 2 diabetes mellitus with other specified complication (13) Gastroesophageal reflux disease Esophagitis presence: esophagitis presence not specified Qualified Code(s): K21.9 - Gastro-esophageal reflux disease without esophagitis (17) Hypertension Hypertension type: essential hypertension Qualified Code(s): I10 - Essential (primary) hypertension
[2023-12-15] MEDS: POLYETHYLENE (MIRALAX) 17 GM PACK PO SCH (21:14)
[2023-12-16 06:40] LABS: Basophils # (auto) 0.02 K/uL (0.00-0.20); Basophils % (auto) 0.2 %; Eosinophils # (auto) 0.14 K/uL (0.00-0.50); Eosinophils % (auto) 1.5 %; Hematocrit (blood only) 31.6 % (42.0-52.0); Hemoglobin 10.2 g/dl (14.0-18.0); Immature Granulocytes # (auto) 0.04 K/uL (0.01-0.20); Immature Granulocytes % (auto) 0.4 %; Lymphocytes # (auto) 0.99 K/uL (1.20-3.40); Lymphocytes % (auto) 10.5 %; Mean Corpuscular Hgb Conc 32.3 g/dL (32.0-36.0); Mean Corpuscular Volume 99.1 fL (80.0-100.0); Mean Platelet Volume 10.1 fL (9.4-12.4); Monocytes # (auto) 0.97 K/uL (0.11-0.59); Monocytes % (auto) 10.3 %; Neutrophils # (auto) 7.29 K/uL (1.40-6.50); Neutrophils % (auto) 77.1 %; Platelet Count 102 K/uL (130-400); RDW Coefficient of Variation 16.2 % (11.5-14.5); Red Blood Count 3.19 M/uL (4.70-6.10); White Blood Count 9.45 K/ul (4.8-10.8)
[2023-12-16 07:00] LABS: BUN Creatinine Ratio 32.4 (10-20); Calcium 8.8 mg/dl (8.6-10.3); Creatinine Clr Calc Pharmacy 42.2 ml/min; Est GFR (African American) 51.5 ml/min; Est GFR (Non-African American) 44.4 ml/min; Potassium 4.3 mmol/L (3.5-5.1)
--- NOTE | 2023-12-16 11:23 | Cardiology Progress Note ---
Date of Service December 16, 2023 Assessment & Plan (1) Urinary retention: (2) Volume overload: (3) Tachy-santy syndrome: (4) S/P placement of cardiac pacemaker: (5) Aortic stenosis: Plan Complex 88-year-old male with dementia, multiple medical issues detailed below, readmitted to this facility on December 13, 2023 due to inability to urinate, multifactorial volume overload, worsening confusion and agitation. Recent mechanical fall noted with multiple injuries as well as recent pacemaker implantation. Volume overload continues to gradually improved. Hyponatremia resolved. Creatinine improving. Device interrogated on 12/14/2023, functioning appropriately. Telemetry benign. Recommendations: Continue IV furosemide as presently prescribed. Monitor renal function and electrolytes closely Continue metoprolol succinate 25 mg/day, aspirin 81 mg/day, atorvastatin 80 mg/day, and Apixaban 5 mg twice per day I spent a total of 18 minutes on the date of service in preparation, delivery, and documentation of the care provided to this patient excluding any time spent in the performance of separately billed services. This visit was a split-shared visit with the substantive portion of the medical decision making performed by the supervising supervisor coil springs/billing provider. Admission and Anticipated Discharge Date Admission Date: December 13, 2023 Supervising Physician Co-Signing Physician Notes I have personally performed a history and physical examination on the patient. I have reviewed the advance practitioner's documentation, and I agree with, and take responsibility for the plan of care. Dementia noted. No additive subjective history provided from patient today. Edema improved. Pacer pocket healing well. Creatinine trending downward, serum sodium trending to normal range.. Continue furosemide. Maintain negative fluid balance. Monitor daily weight, GFR, and electrolytes. I spent a total of 30 minutes on the date of service in preparation, delivery, and documentation of the care provided to this patient, excluding any time spent in the performance of separately billed services. Subjective Patient seen and examined. Demented, unreliable history. Telemetry: Paced in the 70's and 80's. I/O's -900, -2165, -1800 (-4,715 mL's overall) Sodium improved 134 -> 138. Creatinine improved 1.53 -> 1.42 Potassium normal at 4.3 Review of Systems Review of Systems: A complete and accurate review of systems was unable to be obtained (dementia) Physical Exam Physical Exam: General: Alert to person HENT: Normocephalic. Atraumatic. Eyes: PER. Conjunctiva pink, sclera clear. Neck: No overt JVD. Chest: The left subclavian pacemaker incision looks great. Heart: Regular paced. Grade II/ systolic murmur. No diastolic murmur. No rub. Lungs: Clear to auscultation anteriorly. Abdomen: Soft. Distended. No organomegaly. Extremities: 1+ edema. + Ecchymosis. No clubbing. No cyanosis Pulses: Posterior tibial=0/4. Results & Data Vital Signs (Past 12 Hours) Vital Signs Temp Pulse Resp BP Pulse Ox O2 Del Method 12/16/23 07:46 36.8 C 89 16 144/88 H 94 Room Air 12/16/23 03:35 36.7 C 81 18 133/77 94 Room Air Laboratory Results CBC 12/16/23 Range/Units 05:20 WBC 9.45 (4.8-10.8) K/ul RBC 3.19 L (4.70-6.10) M/uL Hgb 10.2 L (14.0-18.0) g/dl Hct 31.6 L (42.0-52.0) % Plt Count 102 L (130-400) K/uL Neut # (Auto) 7.29 H (1.40-6.50) K/uL Lymph # (Auto) 0.99 L (1.20-3.40) K/uL [place] # (Auto) 0.97 H (0.11-0.59) K/uL Eos # (Auto) 0.14 (0.00-0.50) K/uL Baso # (Auto) 0.02 (0.00-0.20) K/uL Comprehensive Metabolic Panel 12/16/23 Range/Units 05:20 Sodium 138 (136-145) mmol/L Potassium 4.3 (3.5-5.1) mmol/L Chloride 102 (98-107) mmol/L Carbon Dioxide 24 (21-32) mmol/L BUN 46 H (6-23) mg/dl Creatinine 1.42 H (0.6-1.4) mg/dl Glucose 160 H (70-99(Fasting)) mg/dl Calcium 8.8 (8.6-10.3) mg/dl Intake and Output 06/06/24 06/07/24 06/07/24 22:59 06:59 14:59 Intake Total 500 / 1100 600 / 1100 150 / 150 Output Total 1200 / 2900 600 / 2900 Balance -700 / -1800 0 / -1800 150 / 150 Intake: Oral 500 / 1100 600 / 1100 150 / 150 Output: Urine Amount (Catheter) 1200 / 2900 600 / 2900 Olivo/Indwelling 1200 / 2900 600 / 2900 Other: Weight 94.4 kg Weight Measurement Method Built in [facility] (5) Aortic stenosis Cardiac valve disease etiology: nonrheumatic Qualified Code(s): I35.0 - Nonrheumatic aortic (valve) stenosis
--- NOTE | 2023-12-16 14:46 | Hospitalist Progress Note ---
Date of Service December 16, 2023 Assessment & Plan (1) Acute on chronic heart failure with preserved ejection fraction (HFpEF): (2) Pulmonary edema: (3) Aortic stenosis: (4) Transaminitis: (5) Elevated troponin: (6) Swelling of the testicles: Plan: Srini Ch is an 88 y/o M with PMHx of DM type II, diabetic retinopathy, DM kidney disease, SIADH, dyslipidemia, acquired hypothyroidism, paroxysmal A-fib [ on Eliquis], CAD, HTN, nonrheumatic aortic valve stenosis s/p pacemaker placement, chronic systolic heart failure, GERD, BPH with obstruction/LUTS, urge incontinence, depression and other problems listed below who presented to the ED today for evaluation of SOB and bilateral leg/testicular swelling. Of note, patient was recently hospitalized last month [11/14/23-11/18/23] s/p fall and subsequent closed right hip fracture requiring nonoperative management. 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 Patient was also seen by orthospine [Dr. Camp] during that hospitalization for compression fractures of T11 and T12. Per discharge summary documentation, he was to follow-up with the orthospine office in ~2 weeks upon d/c for additional radiographs at the thoracolumbar junction AP and lateral views. Patient was also started on an iron supplement upon discharge d/t acute on chronic anemia. His hemoglobin during that hospitalization stabilized around 8, likely 2/2 blood loss as a result of the hip fracture that occurred. Appears baseline hemoglobin around 11-12. Patient was d/c to [facility] for rehabilitation therapy. Most recent echo performed on 11/17/2023 and revealed the following findings: moderate concentric LVH, thickened/angulated basal septum consistent with sigmoid septum, mild global hypokinesis of the left ventricle, LVEF = 45-50%, calcified aortic valve leaflets w/ restricted leaflet mobility and mild to moderate aortic stenosis, moderate mitral annular calcification and trace mitral regurgitation. Vital signs on admission: BP 123/72, HR 81, RR 18, temp 36.7 C, SpO2 95% on RA. Creatinine elevated at 1.77 --> Baseline Cr ~ 0.88 - Evidence of KARLENE on admission. Initial troponin 84.3> 72 BNP >4700 on admission CXR suggestive of mild pulmonary edema Bilateral LE venous doppler displayed NO evidence of DVT w/in the R or L lower extremity. Patient was discharged on oral urea. However, he was placed on 1 g salt tablets 3 times a day at rehab for hyponatremia. Continue lasix to 40mg tid Strict input and output monitoring with Olivo catheter. Daily weights Bowel regimen in place, daily Miralax scheduled. Can continue JOINER HELPER aspirin. PRN PO Tylenol in place for mild/moderate pain. Will continue JOINER HELPER oxycodone therapy for severe pain. Dose decreased to 2.5mg. Avoid salt tablets going forward; will plan to do oral urea for hyponatremia if patient's sodium trends down (7) Acute urinary retention: Plan: -Olivo catheter placed in the ED, manage daily upon transfer. - Plan to do trial of void in next few days. (8) KARLENE (acute kidney injury): Plan: likely cardiorenal syndrome Continue to monitor renal function and hold any nephrotoxic medications for the time being. Continue iv lasix (9) Pressure injury of skin of sacral region: Plan: Evaluation of the sacral region revealed few superficial skin ulcers; no indication of pressure injury at this time Continue to monitor Every 2 hours turns (10) Confusion: Plan: As per HPI, family reports some recent confusion and agitation since being home. No recent falls or head trauma since being home or at [facility] per the family's recollection. CT head- no acute findings -Monitor for any signs of increasing delirium while hospitalized. (11) DMII (diabetes mellitus, type 2): Plan: -Will hold JOINER HELPER metformin therapy, initiate SSI regimen while hospitalized. Last recorded Hgb A1C 6.5 on 11/30/22. (12) Dyslipidemia: Plan: Continue lipitor (13) Gastroesophageal reflux disease: Plan: -Can continue JOINER HELPER pantoprazole while hospitalized. 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 -Continue JOINER HELPER Eliquis therapy for DVT prophylaxis while hospitalized. (17) Hypertension: Plan: -Will continue JOINER HELPER metoprolol succinate w/ HOLD PARAMETERS. (18) Chronic hyponatremia: Plan: Hx of chronic hyponatremia --> Sodium 132 on admission. -STOP salt tablets -Continue to monitor sodium level (19) Acquired hypothyroidism: Plan: TSH on admission slightly elevated @ 4.575 --> Will continue JOINER HELPER levothyroxine for now. (20) History of depression: (21) Skin irritation: Plan: As per HPI --> reports that he has some skin irritation in his right groin region that has been ongoing for couple of days, she has been applying protective ointment to the region w/o much improvement. -Resembles intertriginous candidiasis on examination. on clotrimazole cream to be applied to the region BID. (22) History of anemia: Plan: -Will continue JOINER HELPER iron supplementation. DVT Prophylaxis: Eliquis Code Status: Full Code PCP: Angelo Vazquez MD Dispo: Admit to PCU/Telemetry Discussed with patient's son over the phone. Answer questions/queries Time spent evaluating patient, direct bedside care, chart review, placing orders, interpretation of diagnostic studies, discussion with consultants, patient, and family members, as well as other required patient management activities is 50 minutes Please note the above document was generated using voice recognition software. It may contain grammatical, syntax or spelling errors. Any formal questions or concerns about the content, text or information contained within the body of this dictation should be directly addressed to the provider for clarification Admission and Anticipated Discharge Date Admission Date: December 13, 2023 Subjective Patient seen and examined at bedside. He is lying on the bed comfortably; not in distress Urine output of 3 L in last 24 hours; almost negative of 5 L since admission Review of Systems Review of Systems: All systems reviewed & are unremarkable except as noted in Subjective Physical Exam Physical Exam: General Appearance Comfortable; not in any distress. Alert and oriented x 2 Respiratory: Crackles bilaterally on bases Cardiovascular: Regular rate, rhythm, normal peripheral pulses. Significant pitting edema in bilateral lower extremities. Abdomen/GI: Normal bowel sounds, soft, nontender, : Testicular swelling/edema present, tender to palpation. Extremities/Musculoskeletal: 2+ pitting edema. bruise on left hip Neurologic: PERRL, EOMI, accommodation nl, no face palsy, no dysarthria, normal sensation to touch in bilateral LE. Psychiatric: A+Ox2, somewhat agitated. Awake and alert, no acute sensory deficits. Skin: some areas of superficial ulcers. Results & Data Results & Data Vital Signs (Past 12 Hours) Vital Signs Temp Pulse Resp BP Pulse Ox O2 Del Method 12/16/23 12:34 36.7 C 115 H 18 133/95 96 Room Air 12/16/23 11:00 63 12/16/23 07:46 36.8 C 89 16 144/88 H 94 Room Air 12/16/23 03:35 36.7 C 81 18 133/77 94 Room Air (2) Pulmonary edema Chronicity: acute Qualified Code(s): J81.0 - Acute pulmonary edema (3) Aortic stenosis Cardiac valve disease etiology: nonrheumatic Qualified Code(s): I35.0 - Nonrheumatic aortic (valve) stenosis (9) Pressure injury of skin of sacral region Pressure injury stage: unspecified pressure injury stage Qualified Code(s): L89.159 - Pressure ulcer of sacral region, unspecified stage (11) DMII (diabetes mellitus, type 2) Diabetes mellitus long term care pharmacist insulin use: without long term care pharmacist use Diabetes mellitus complication status: with other specified complication Qualified Code(s): E11.69 - Type 2 diabetes mellitus with other specified complication (13) Gastroesophageal reflux disease Esophagitis presence: esophagitis presence not specified Qualified Code(s): K21.9 - Gastro-esophageal reflux disease without esophagitis (17) Hypertension Hypertension type: essential hypertension Qualified Code(s): I10 - Essential (primary) hypertension
--- NOTE | 2023-12-16 16:47 | Electrocardiogram Report ---
Test Reason : Blood Pressure : / mmHG Vent. Rate : 064 BPM Atrial Rate : 064 BPM P-R Int : 166 ms QRS Dur : 150 ms QT Int : 508 ms P-R-T Axes : 009 -54 093 degrees QTc Int : 524 ms Atrial-sensed ventricular-paced rhythm Abnormal ECG When compared with ECG of 17-NOV-2023 13:32, Vent. rate has decreased BY 6 BPM Confirmed by Mervin Last ([id number]) on 12/16/2023 4:47:05 PM Referred By: Confirmed By:Mervin Last
--- NOTE | 2023-12-16 18:36 | Electrocardiogram Report ---
Test Reason : Blood Pressure : / mmHG Vent. Rate : 073 BPM Atrial Rate : 073 BPM P-R Int : 148 ms QRS Dur : 156 ms QT Int : 504 ms P-R-T Axes : 090 132 107 degrees QTc Int : 555 ms Atrial-sensed ventricular-paced rhythm with occasional sinus complexes Abnormal ECG When compared with ECG of 13-DEC-2023 13:59, Vent. rate has increased BY 9 BPM Confirmed by Mervin Last ([id number]) on 12/16/2023 6:36:27 PM Referred By: REFERRED SELF Confirmed By:Mervin Last
[2023-12-17 06:59] LABS: Basophils # (auto) 0.03 K/uL (0.00-0.20); Basophils % (auto) 0.3 %; Eosinophils % (auto) 3.4 %; Hematocrit (blood only) 31.9 % (42.0-52.0); Hemoglobin 10.3 g/dl (14.0-18.0); Immature Granulocytes # (auto) 0.03 K/uL (0.01-0.20); Immature Granulocytes % (auto) 0.3 %; Lymphocytes % (auto) 12.5 %; Mean Corpuscular Hemoglobin 32.3 pg (25.0-34.0); Mean Corpuscular Hgb Conc 32.3 g/dL (32.0-36.0); Mean Platelet Volume 10.1 fL (9.4-12.4); Monocytes # (auto) 0.86 K/uL (0.11-0.59); Monocytes % (auto) 9.8 %; Neutrophils % (auto) 73.7 %; Platelet Count 101 K/uL (130-400); RDW Standard Deviation 61.9 fL (36.4-46.3); Red Blood Count 3.19 M/uL (4.70-6.10); White Blood Count 8.82 K/ul (4.8-10.8)
[2023-12-17 07:21] LABS: BUN Creatinine Ratio 32.5 (10-20); Calcium 8.6 mg/dl (8.6-10.3); Creatinine Clr Calc Pharmacy 49.9 ml/min; Est GFR (African American) 63.1 ml/min; Est GFR (Non-African American) 54.4 ml/min; Potassium 4.7 mmol/L (3.5-5.1)
[2023-12-17] MEDS: ESCITALOPRAM OXALATE 10 MG TAB PO SCH (10:08)
--- NOTE | 2023-12-17 10:15 | Cardiology Progress Note ---
Date of Service December 17, 2023 Assessment & Plan (1) Urinary retention: (2) Volume overload: (3) Tachy-santy syndrome: (4) S/P placement of cardiac pacemaker: (5) Aortic stenosis: Plan Complex 88-year-old male with dementia, multiple medical issues detailed below, readmitted to this facility on December 13, 2023 due to inability to urinate, multifactorial volume overload, worsening confusion and agitation. Recent mechanical fall noted with multiple injuries as well as recent pacemaker implantation. Volume overload continues to gradually improved. Hyponatremia resolved. Creatinine improving. Device interrogated on 12/14/2023, functioning appropriately. Telemetry benign. Recommendations: Continue IV furosemide another day, possibly transitioning to oral diuretic therapy in AM of 12/18/2023. Continue metoprolol succinate, aspirin 81 mg/day, atorvastatin 80 mg/day, and A pixaban 5 mg twice per day I spent a total of 22 minutes on the date of service in preparation, delivery, and documentation of the care provided to this patient excluding any time spent in the performance of separately billed services. This visit was a split-shared visit with the substantive portion of the medical decision making performed by the supervising photographer apprentice lithographic/billing provider. Admission and Anticipated Discharge Date Admission Date: December 13, 2023 Supervising Physician Co-Signing Physician Notes I have personally performed a history and physical examination on the patient. I have reviewed the advance practitioner's documentation, and I agree with, and take responsibility for the plan of care. Pacer pocket healing well. Continue furosemide. I spent a total of 10 minutes on the date of service in preparation, delivery, and documentation of the care provided to this patient, excluding any time spent in the performance of separately billed services. Subjective Patient seen and examined. Demented, unreliable history. Telemetry: Paced in the 70's I/O's -900, -2165, -1800, 45230 (-7,325 mL's overall) Sodium improved 132 -> 134 -> 138 - 140. Creatinine improved 1.77 -> 1.2 Potassium normal at 4.7 Review of Systems Review of Systems: A complete and accurate review of systems was unable to be obtained (dementia) Physical Exam Physical Exam: General: Alert to person HENT: Normocephalic. Atraumatic. Eyes: PER. Conjunctiva pink, sclera clear. Neck: No overt JVD. Chest: The left subclavian pacemaker incision looks great. Heart: Regular paced. Grade II/ systolic murmur. No diastolic murmur. No rub. Lungs: Clear to auscultation anteriorly. Abdomen: Soft. Distended. No organomegaly. Extremities: Trace to 1+ edema. + Ecchymosis. No clubbing. No cyanosis Pulses: Posterior tibial=0/4. Results & Data Vital Signs (Past 12 Hours) Vital Signs Temp Pulse Pulse Resp BP Pulse Ox O2 Del Method 12/17/23 07:51 36.7 C 76 20 122/71 98 Room Air 12/16/23 23:00 60 Laboratory Results CBC 12/17/23 Range/Units 06:40 WBC 8.82 (4.8-10.8) K/ul RBC 3.19 L (4.70-6.10) M/uL Hgb 10.3 L (14.0-18.0) g/dl Hct 31.9 L (42.0-52.0) % Plt Count 101 L (130-400) K/uL Neut # (Auto) 6.50 (1.40-6.50) K/uL Lymph # (Auto) 1.10 L (1.20-3.40) K/uL [place] # (Auto) 0.86 H (0.11-0.59) K/uL Eos # (Auto) 0.30 (0.00-0.50) K/uL Baso # (Auto) 0.03 (0.00-0.20) K/uL Comprehensive Metabolic Panel 12/17/23 Range/Units 06:40 Sodium 140 (136-145) mmol/L Potassium 4.7 (3.5-5.1) mmol/L Chloride 102 (98-107) mmol/L Carbon Dioxide 30 (21-32) mmol/L BUN 39 H (6-23) mg/dl Creatinine 1.20 (0.6-1.4) mg/dl Glucose 128 H (70-99(Fasting)) mg/dl Calcium 8.6 (8.6-10.3) mg/dl Intake and Output 12/16/23 12/17/23 12/17/23 22:59 06:59 14:59 Intake Total 740 / 1015 Output Total 1100 / 3475 625 / 3475 Balance -360 / -2460 - Intake: Oral 740 / 1015 Output: Urine Amount (Catheter) 1099 Olivo/Indwelling 1099 Other: Other Intake Source sips Weight 93.4 kg Weight Measurement Method Built in [facility] (5) Aortic stenosis Cardiac valve disease etiology: nonrheumatic Qualified Code(s): I35.0 - Nonrheumatic aortic (valve) stenosis
--- NOTE | 2023-12-17 14:38 | Hospitalist Progress Note ---
Date of Service December 17, 2023 Assessment & Plan (1) Acute on chronic heart failure with preserved ejection fraction (HFpEF): (2) Pulmonary edema: (3) Aortic stenosis: (4) Transaminitis: (5) Elevated troponin: (6) Swelling of the testicles: Plan: Srini Ch is an 88 y/o M with PMHx of DM type II, diabetic retinopathy, DM kidney disease, SIADH, dyslipidemia, acquired hypothyroidism, paroxysmal A-fib [ on Eliquis], CAD, HTN, nonrheumatic aortic valve stenosis s/p pacemaker placement, chronic systolic heart failure, GERD, BPH with obstruction/LUTS, urge incontinence, depression and other problems listed below who presented to the ED today for evaluation of SOB and bilateral leg/testicular swelling. Most recent echo performed on 11/17/2023 and revealed the following findings: moderate concentric LVH, thickened/angulated basal septum consistent with sigmoid septum, mild global hypokinesis of the left ventricle, LVEF = 45-50%, calcified aortic valve leaflets w/ restricted leaflet mobility and mild to moderate aortic stenosis, moderate mitral annular calcification and trace mitral regurgitation. Vital signs on admission: BP 123/72, HR 81, RR 18, temp 36.7 C, SpO2 95% on RA. Creatinine elevated at 1.77 --> Baseline Cr ~ 0.88 - Evidence of KARLENE on admission. Initial troponin 84.3> 72 BNP >4700 on admission CXR suggestive of mild pulmonary edema Bilateral LE venous doppler displayed NO evidence of DVT w/in the R or L lower extremity. Patient was discharged on oral urea. However, he was placed on 1 g salt tablets 3 times a day at rehab for hyponatremia. Continue lasix to 40mg tid Strict input and output monitoring with Olivo catheter. Daily weights Bowel regimen in place, daily Miralax scheduled. Can continue FRAME MAKER aspirin. PRN PO Tylenol in place for mild/moderate pain. Will continue FRAME MAKER oxycodone therapy for severe pain. Dose decreased to 2.5mg. Avoid salt tablets going forward; will plan to do oral urea for hyponatremia if patient's sodium trends down (7) Acute urinary retention: Plan: -Olivo catheter placed in the ED, manage daily upon transfer. - Plan to do trial of void in next few days. (8) KARLENE (acute kidney injury): Plan: likely cardiorenal syndrome Continue to monitor renal function and hold any nephrotoxic medications for the time being. Continue iv lasix (9) Pressure injury of skin of sacral region: Plan: Evaluation of the sacral region revealed few superficial skin ulcers; no indication of pressure injury at this time Continue to monitor Every 2 hours turns (10) Confusion: Plan: As per HPI, family reports some recent confusion and agitation since being home. No recent falls or head trauma since being home or at [facility] per the family's recollection. CT head- no acute findings -Monitor for any signs of increasing delirium while hospitalized. (11) DMII (diabetes mellitus, type 2): Plan: -Will hold FRAME MAKER metformin therapy, initiate SSI regimen while hospitalized. Last recorded Hgb A1C 6.5 on 11/30/22. (12) Dyslipidemia: Plan: Continue lipitor (13) Gastroesophageal reflux disease: Plan: -Can continue FRAME MAKER pantoprazole while hospitalized. 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 -Continue FRAME MAKER Eliquis therapy for DVT prophylaxis while hospitalized. (17) Hypertension: Plan: -Will continue FRAME MAKER metoprolol succinate w/ HOLD PARAMETERS. (18) Chronic hyponatremia: Plan: Hx of chronic hyponatremia --> Sodium 132 on admission. -STOP salt tablets -Continue to monitor sodium level (19) Acquired hypothyroidism: Plan: TSH on admission slightly elevated @ 4.575 --> Will continue FRAME MAKER levothyroxine for now. (20) History of depression: (21) Skin irritation: Plan: As per HPI --> reports that he has some skin irritation in his right groin region that has been ongoing for couple of days, she has been applying protective ointment to the region w/o much improvement. -Resembles intertriginous candidiasis on examination. on clotrimazole cream to be applied to the region BID. (22) History of anemia: Plan: -Will continue FRAME MAKER iron supplementation. DVT Prophylaxis: Eliquis Code Status: Full Code PCP: Angelo Vazquez MD Dispo: Admit to PCU/Telemetry Discussed with patient's son over the phone on December 16, 2023. Answer questions/queries Time spent evaluating patient, direct bedside care, chart review, placing orders, interpretation of diagnostic studies, discussion with consultants, patient, and family members, as well as other required patient management activities is 50 minutes Please note the above document was generated using voice recognition software. It may contain grammatical, syntax or spelling errors. Any formal questions or concerns about the content, text or information contained within the body of this dictation should be directly addressed to the provider for clarification Admission and Anticipated Discharge Date Admission Date: December 13, 2023 Subjective Patient seen and examined at bedside. He is comfortable lying in the bed; not in distress. Denies any pain on his hip. He reports discomfort at this back He continues to diurese well; -7 L since admission Review of Systems Review of Systems: All systems reviewed & are unremarkable except as noted in Subjective Physical Exam Physical Exam: General Appearance Comfortable; not in any distress. Alert and oriented x 2 Respiratory: Crackles bilaterally on bases; improved Cardiovascular: Regular rate, rhythm, normal peripheral pulses. Significant pitting edema in bilateral lower extremities. Abdomen/GI: Normal bowel sounds, soft, nontender, : Testicular swelling/edema present, tender to palpation. Extremities/Musculoskeletal: 2+ pitting edema. bruise on left hip Neurologic: PERRL, EOMI, accommodation nl, no face palsy, no dysarthria, normal sensation to touch in bilateral LE. Psychiatric: A+Ox2, somewhat agitated. Awake and alert, no acute sensory deficits. Skin: some areas of superficial ulcers. Results & Data Results & Data Vital Signs (Past 12 Hours) Vital Signs Temp Pulse Resp BP Pulse Ox O2 Del Method 12/17/23 11:36 36.6 C 64 22 104/67 96 Room Air 12/17/23 07:51 36.7 C 76 20 122/71 98 Room Air (2) Pulmonary edema Chronicity: acute Qualified Code(s): J81.0 - Acute pulmonary edema (3) Aortic stenosis Cardiac valve disease etiology: nonrheumatic Qualified Code(s): I35.0 - Nonrheumatic aortic (valve) stenosis (9) Pressure injury of skin of sacral region Pressure injury stage: unspecified pressure injury stage Qualified Code(s): L89.159 - Pressure ulcer of sacral region, unspecified stage (11) DMII (diabetes mellitus, type 2) Diabetes mellitus complication status: with other specified complication 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
[2023-12-18 06:46] LABS: BUN Creatinine Ratio 33.6 (10-20); Calcium 8.6 mg/dl (8.6-10.3); Est GFR (African American) 72.5 ml/min; Est GFR (Non-African American) 62.5 ml/min; Potassium 4.1 mmol/L (3.5-5.1)
[2023-12-18 06:50] LABS: Basophils # (auto) 0.03 K/uL (0.00-0.20); Basophils % (auto) 0.4 %; Eosinophils # (auto) 0.31 K/uL (0.00-0.50); Eosinophils % (auto) 4.2 %; Hematocrit (blood only) 31.7 % (42.0-52.0); Hemoglobin 10.1 g/dl (14.0-18.0); Immature Granulocytes # (auto) 0.04 K/uL (0.01-0.20); Immature Granulocytes % (auto) 0.5 %; Lymphocytes % (auto) 13.4 %; Mean Corpuscular Hemoglobin 32.1 pg (25.0-34.0); Mean Corpuscular Hgb Conc 31.9 g/dL (32.0-36.0); Mean Corpuscular Volume 100.6 fL (80.0-100.0); Mean Platelet Volume 9.5 fL (9.4-12.4); Monocytes # (auto) 0.96 K/uL (0.11-0.59); Monocytes % (auto) 12.9 %; Neutrophils # (auto) 5.12 K/uL (1.40-6.50); Neutrophils % (auto) 68.6 %; Platelet Count 102 K/uL (130-400); RDW Coefficient of Variation 16.8 % (11.5-14.5); RDW Standard Deviation 61.2 fL (36.4-46.3); Red Blood Count 3.15 M/uL (4.70-6.10); White Blood Count 7.46 K/ul (4.8-10.8)
[2023-12-18] MEDS: FUROSEMIDE 40 MG TAB PO SCH (09:56)
--- NOTE | 2023-12-18 14:33 | Hospitalist Progress Note ---
Date of Service December 18, 2023 Assessment & Plan (1) Acute on chronic heart failure with preserved ejection fraction (HFpEF): (2) Pulmonary edema: (3) Aortic stenosis: (4) Transaminitis: (5) Elevated troponin: (6) Swelling of the testicles: Plan: Srini Ch is an 88 y/o M with PMHx of DM type II, diabetic retinopathy, DM kidney disease, SIADH, dyslipidemia, acquired hypothyroidism, paroxysmal A-fib [ on Eliquis], CAD, HTN, nonrheumatic aortic valve stenosis s/p pacemaker placement, chronic systolic heart failure, GERD, BPH with obstruction/LUTS, urge incontinence, depression and other problems listed below who presented to the ED today for evaluation of SOB and bilateral leg/testicular swelling. Most recent echo performed on 11/17/2023 and revealed the following findings: moderate concentric LVH, thickened/angulated basal septum consistent with sigmoid septum, mild global hypokinesis of the left ventricle, LVEF = 45-50%, calcified aortic valve leaflets w/ restricted leaflet mobility and mild to moderate aortic stenosis, moderate mitral annular calcification and trace mitral regurgitation. Vital signs on admission: BP 123/72, HR 81, RR 18, temp 36.7 C, SpO2 95% on RA. Creatinine elevated at 1.77 --> Baseline Cr ~ 0.88 - Evidence of KARLENE on admission. Initial troponin 84.3> 72 BNP >4700 on admission CXR suggestive of mild pulmonary edema Bilateral LE venous doppler displayed NO evidence of DVT w/in the R or L lower extremity. Patient was discharged on oral urea. However, he was placed on 1 g salt tablets 3 times a day at rehab for hyponatremia. Patient initially diuresed with Lasix 40 mg 3 times daily; switched over to 40 mg p.o. twice a day now. Remove Olivo catheter; trial of void Daily weights Bowel regimen in place, daily Miralax scheduled. Can continue AIR INTERCEPT CONTROLLER SUPERVISOR aspirin. PRN PO Tylenol in place for mild/moderate pain. Will continue AIR INTERCEPT CONTROLLER SUPERVISOR oxycodone therapy for severe pain. Dose decreased to 2.5mg. Avoid salt tablets going forward; will plan to do oral urea for hyponatremia if patient's sodium trends down (7) Acute urinary retention: Plan: -Olivo catheter placed in the ED, manage daily upon transfer. -Olivo removed; trial of void (8) KARLENE (acute kidney injury): Plan: likely cardiorenal syndrome Continue to monitor renal function and hold any nephrotoxic medications for the time being. Continue lasix (9) Pressure injury of skin of sacral region: Plan: Evaluation of the sacral region revealed few superficial skin ulcers; no indication of pressure injury at this time Continue to monitor Every 2 hours turns (10) Confusion: Plan: As per HPI, family reports some recent confusion and agitation since being home. No recent falls or head trauma since being home or at [facility] per the family's recollection. CT head- no acute findings -Monitor for any signs of increasing delirium while hospitalized. (11) DMII (diabetes mellitus, type 2): Plan: -Will hold AIR INTERCEPT CONTROLLER SUPERVISOR metformin therapy, initiate SSI regimen while hospitalized. Last recorded Hgb A1C 6.5 on 11/30/22. (12) Dyslipidemia: Plan: Continue lipitor (13) Gastroesophageal reflux disease: Plan: -Can continue AIR INTERCEPT CONTROLLER SUPERVISOR pantoprazole while hospitalized. 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 -Continue AIR INTERCEPT CONTROLLER SUPERVISOR Eliquis therapy for DVT prophylaxis while hospitalized. (17) Hypertension: Plan: -Will continue AIR INTERCEPT CONTROLLER SUPERVISOR metoprolol succinate w/ HOLD PARAMETERS. (18) Chronic hyponatremia: Plan: Hx of chronic hyponatremia --> Sodium 132 on admission. -STOP salt tablets -Continue to monitor sodium level (19) Acquired hypothyroidism: Plan: TSH on admission slightly elevated @ 4.575 --> Will continue AIR INTERCEPT CONTROLLER SUPERVISOR levothyroxine for now. (20) History of depression: (21) Skin irritation: Plan: As per HPI --> reports that he has some skin irritation in his right groin region that has been ongoing for couple of days, she has been applying protective ointment to the region w/o much improvement. -Resembles intertriginous candidiasis on examination. on clotrimazole cream to be applied to the region BID. (22) History of anemia: Plan: -Will continue AIR INTERCEPT CONTROLLER SUPERVISOR iron supplementation. DVT Prophylaxis: Eliquis Code Status: Full Code PCP: Angelo Vazquez MD Dispo: Admit to PCU/Telemetry Discussed with family at bedside. Answer questions/queries Time spent evaluating patient, direct bedside care, chart review, placing orders, interpretation of diagnostic studies, discussion with consultants, patient, and family members, as well as other required patient management activities is 50 minutes Please note the above document was generated using voice recognition software. It may contain grammatical, syntax or spelling errors. Any formal questions or concerns about the content, text or information contained within the body of this dictation should be directly addressed to the provider for clarification Admission and Anticipated Discharge Date Admission Date: December 13, 2023 Subjective Patient seen and examined at bedside. He is comfortable lying in the bed; not in distress. Denies any pain on his hip. He reports discomfort at this back He continues to diurese well; -10 L since admission Review of Systems Review of Systems: All systems reviewed & are unremarkable except as noted in Subjective Physical Exam Physical Exam: General Appearance Comfortable; not in any distress. Alert and oriented x 2 Respiratory: Crackles bilaterally on bases; improved Cardiovascular: Regular rate, rhythm, normal peripheral pulses. Significant pitting edema in bilateral lower extremities. Abdomen/GI: Normal bowel sounds, soft, nontender, : Testicular swelling/edema present, tender to palpation. Extremities/Musculoskeletal: 1+ pitting edema. bruise on left hip Neurologic: PERRL, EOMI, accommodation nl, no face palsy, no dysarthria, normal sensation to touch in bilateral LE. Psychiatric: A+Ox2, somewhat agitated. Awake and alert, no acute sensory deficits. Skin: some areas of superficial ulcers. Results & Data Results & Data Vital Signs (Past 12 Hours) Vital Signs Temp Pulse Pulse Resp BP Pulse Ox O2 Del Method 12/18/23 10:15 36.7 C 80 20 133/77 98 Room Air 12/18/23 08:03 36.6 C 93 H 18 137/87 97 Room Air 12/18/23 08:00 76 12/18/23 03:07 36.6 C 88 24 119/72 95 Room Air (2) Pulmonary edema Chronicity: acute Qualified Code(s): J81.0 - Acute pulmonary edema (3) Aortic stenosis Cardiac valve disease etiology: nonrheumatic Qualified Code(s): I35.0 - Nonrheumatic aortic (valve) stenosis (9) Pressure injury of skin of sacral region Pressure injury stage: unspecified pressure injury stage Qualified Code(s): L89.159 - Pressure ulcer of sacral region, unspecified stage (11) DMII (diabetes mellitus, type 2) 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
--- NOTE | 2023-12-18 15:57 | Cardiology Progress Note ---
<Statement entered by Yanely Cline MD - 12/18/23 18:10> I have reviewed the advanced practitioner's documentation on the date of service referenced in note, and I agree with, and take responsibility for the plan of care. 88-year-old admitted with difficulty urination volume overload. Pacemaker placement in his prior admission His volume status has improved and is euvolemic now continue with p.o. diuretics follow-up as outpatient with cardiology Please call with questions I spent a total of [10] minutes coordinating, documenting, and providing care for this patient excluding time spent in the performance of separately billed services or time spent by another provider. Date of Service December 18, 2023 Assessment & Plan (1) Urinary retention: (2) Volume overload: (3) Tachy-santy syndrome: (4) S/P placement of cardiac pacemaker: (5) Aortic stenosis: Plan Complex 88-year-old male with dementia, multiple medical issues detailed below, readmitted to this facility on December 13, 2023 due to inability to urinate, multifactorial volume overload, worsening confusion and agitation. Recent mechanical fall noted with multiple injuries as well as recent pacemaker implantation. Volume status appears normovolemic today. Recommendations: 1. Transition to oral furosemide today. 2. Continue metoprolol succinate, aspirin 81 mg/day, atorvastatin 80 mg/day, and Apixaban 5 mg twice per day 3. Please contact with any questions or concerns. I spent a total of 18 minutes on the date of service in preparation, delivery, and documentation of the care provided to this patient excluding any time spent in the performance of separately billed services. This visit was a split-shared visit with the substantive portion of the medical decision making performed by the supervising fire alarm mechanic/billing provider. Admission and Anticipated Discharge Date Admission Date: December 13, 2023 Subjective Patient seen and examined. Demented, unreliable history. Telemetry: Paced in the 70's I/O's -900, -2165, -1800, -2460, -2755 (-10,081 mL's overall) Review of Systems Review of Systems: A complete and accurate review of systems was unable to be obtained (dementia) Physical Exam Physical Exam: General: Alert to person HENT: Normocephalic. Atraumatic. Eyes: PER. Conjunctiva pink, sclera clear. Neck: No JVD. Chest: The left subclavian pacemaker incision looks good. Heart: Regular paced. Grade II/ systolic murmur. No diastolic murmur. No rub. Lungs: Clear to auscultation anteriorly. Abdomen: Soft. Distended. No organomegaly. Extremities: No edema. + Ecchymosis. No clubbing. No cyanosis Pulses: Posterior tibial=0/4. Results & Data Vital Signs (Past 12 Hours) Vital Signs Temp Pulse Pulse Resp BP Pulse Ox O2 Del Method 12/18/23 15:52 78 12/18/23 15:20 36.4 C L 84 18 153/84 H 98 Room Air 12/18/23 10:15 36.7 C 80 20 133/77 98 Room Air 12/18/23 08:03 36.6 C 93 H 18 137/87 97 Room Air 12/18/23 08:00 76 Laboratory Results CBC 12/18/23 Range/Units 05:52 WBC 7.46 (4.8-10.8) K/ul RBC 3.15 L (4.70-6.10) M/uL Hgb 10.1 L (14.0-18.0) g/dl Hct 31.7 L (42.0-52.0) % Plt Count 102 L (130-400) K/uL Neut # (Auto) 5.12 (1.40-6.50) K/uL Lymph # (Auto) 1.00 L (1.20-3.40) K/uL Parke # (Auto) 0.96 H (0.11-0.59) K/uL Eos # (Auto) 0.31 (0.00-0.50) K/uL Baso # (Auto) 0.03 (0.00-0.20) K/uL Comprehensive Metabolic Panel 12/18/23 Range/Units 05:52 Sodium 138 (136-145) mmol/L Potassium 4.1 (3.5-5.1) mmol/L Chloride 99 (98-107) mmol/L Carbon Dioxide 31 (21-32) mmol/L BUN 36 H (6-23) mg/dl Creatinine 1.07 (0.6-1.4) mg/dl Glucose 128 H (70-99(Fasting)) mg/dl Calcium 8.6 (8.6-10.3) mg/dl Intake and Output 12/18/23 12/18/23 12/18/23 06:59 14:59 22:59 Intake Total 120 / 720 Output Total 425 / 3475 Balance -305 / -2755 - Intake: Oral 120 / 720 Output: Urine Amount (Catheter) 425 / 3475 Olivo/Indwelling 425 / 3475 # Bowel Movements Other: Weight 94.5 kg Weight Measurement Method Built in [facility] Diagnostic Findings Device interrogated on 12/14/2023, functioning appropriately. (5) Aortic stenosis Cardiac valve disease etiology: nonrheumatic Qualified Code(s): I35.0 - Nonrheumatic aortic (valve) stenosis
[2023-12-19 07:22] LABS: Hematocrit (blood only) 32.5 % (42.0-52.0); Hemoglobin 10.4 g/dl (14.0-18.0); Mean Corpuscular Hemoglobin 31.7 pg (25.0-34.0); Mean Corpuscular Volume 99.1 fL (80.0-100.0); Platelet Count 94 K/uL (130-400); RDW Coefficient of Variation 16.7 % (11.5-14.5); RDW Standard Deviation 61.2 fL (36.4-46.3); Red Blood Count 3.28 M/uL (4.70-6.10); White Blood Count 7.19 K/ul (4.8-10.8)
[2023-12-19 07:39] LABS: BUN Creatinine Ratio 32.4 (10-20); Calcium 8.8 mg/dl (8.6-10.3); Creatinine Clr Calc Pharmacy 58.8 ml/min; Est GFR (African American) 76.8 ml/min; Est GFR (Non-African American) 66.2 ml/min; Potassium 3.8 mmol/L (3.5-5.1)
[2023-12-19 08:00] LABS: Acanthocytes 1+; Basophils # (auto) 0.02 K/uL (0.00-0.20); Basophils % (auto) 0.3 %; Eosinophils # (auto) 0.18 K/uL (0.00-0.50); Eosinophils % (auto) 2.5 %; Immature Granulocytes # (auto) 0.03 K/uL (0.01-0.20); Immature Granulocytes % (auto) 0.4 %; Lymphocytes # (auto) 0.97 K/uL (1.20-3.40); Lymphocytes % (auto) 13.5 %; Monocytes # (auto) 0.76 K/uL (0.11-0.59); Monocytes % (auto) 10.6 %; Neutrophils # (auto) 5.23 K/uL (1.40-6.50); Neutrophils % (auto) 72.7 %; Polychromasia 1+
--- NOTE | 2023-12-19 15:02 | Hospitalist Progress Note ---
Date of Service December 19, 2023 Assessment & Plan (1) Acute on chronic heart failure with preserved ejection fraction (HFpEF): (2) Pulmonary edema: (3) Aortic stenosis: (4) Transaminitis: (5) Elevated troponin: (6) Swelling of the testicles: Plan: Srini Ch is an 88 y/o M with PMHx of DM type II, diabetic retinopathy, DM kidney disease, SIADH, dyslipidemia, acquired hypothyroidism, paroxysmal A-fib [ on Eliquis], CAD, HTN, nonrheumatic aortic valve stenosis s/p pacemaker placement, chronic systolic heart failure, GERD, BPH with obstruction/LUTS, urge incontinence, depression and other problems listed below who presented to the ED today for evaluation of SOB and bilateral leg/testicular swelling. Most recent echo performed on 11/17/2023 and revealed the following findings: moderate concentric LVH, thickened/angulated basal septum consistent with sigmoid septum, mild global hypokinesis of the left ventricle, LVEF = 45-50%, calcified aortic valve leaflets w/ restricted leaflet mobility and mild to moderate aortic stenosis, moderate mitral annular calcification and trace mitral regurgitation. Vital signs on admission: BP 123/72, HR 81, RR 18, temp 36.7 C, SpO2 95% on RA. Creatinine elevated at 1.77 --> Baseline Cr ~ 0.88 - Evidence of KARLENE on admission. Initial troponin 84.3> 72 BNP >4700 on admission CXR suggestive of mild pulmonary edema Bilateral LE venous doppler displayed NO evidence of DVT w/in the R or L lower extremity. Patient was discharged on oral urea. However, he was placed on 1 g salt tablets 3 times a day at rehab for hyponatremia. Patient initially diuresed with Lasix 40 mg 3 times daily; switched over to 40 mg p.o. twice a day now. Olivo catheter removed; trial of void Daily weights Bowel regimen in place, daily Miralax scheduled. Can continue BLANKER PRESS OPERATOR aspirin. PRN PO Tylenol in place for mild/moderate pain. Will continue BLANKER PRESS OPERATOR oxycodone therapy for severe pain. Dose decreased to 2.5mg. Avoid salt tablets going forward; will plan to do oral urea for hyponatremia if patient's sodium trends down (7) Acute urinary retention: Plan: -Olivo catheter placed in the ED, -Olivo removed; trial of void (8) KARLENE (acute kidney injury): Plan: likely cardiorenal syndrome Continue to monitor renal function and hold any nephrotoxic medications for the time being. Continue lasix (9) Pressure injury of skin of sacral region: Plan: Evaluation of the sacral region revealed few superficial skin ulcers; no indication of pressure injury at this time Continue to monitor Every 2 hours turns (10) Confusion: Plan: As per HPI, family reports some recent confusion and agitation since being home. No recent falls or head trauma since being home or at [facility] per the family's recollection. CT head- no acute findings -Monitor for any signs of increasing delirium while hospitalized. will dc oxycodone (11) DMII (diabetes mellitus, type 2): Plan: -Will hold BLANKER PRESS OPERATOR metformin therapy, initiate SSI regimen while hospitalized. Last recorded Hgb A1C 6.5 on 11/30/22. (12) Dyslipidemia: Plan: Continue lipitor (13) Gastroesophageal reflux disease: Plan: -Can continue BLANKER PRESS OPERATOR pantoprazole while hospitalized. 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 -Continue BLANKER PRESS OPERATOR Eliquis therapy for DVT prophylaxis while hospitalized. (17) Hypertension: Plan: -Will continue BLANKER PRESS OPERATOR metoprolol succinate w/ HOLD PARAMETERS. (18) Chronic hyponatremia: Plan: Hx of chronic hyponatremia --> Sodium 132 on admission. -STOP salt tablets -Continue to monitor sodium level (19) Acquired hypothyroidism: Plan: TSH on admission slightly elevated @ 4.575 --> Will continue BLANKER PRESS OPERATOR levothyroxine for now. (20) History of depression: (21) Skin irritation: Plan: As per HPI --> reports that he has some skin irritation in his right groin region that has been ongoing for couple of days, she has been applying protective ointment to the region w/o much improvement. -Resembles intertriginous candidiasis on examination. on clotrimazole cream to be applied to the region BID. (22) History of anemia: Plan: -Will continue BLANKER PRESS OPERATOR iron supplementation. DVT Prophylaxis: Eliquis Code Status: Full Code PCP: Angelo Vazquez MD Dispo: Admit to PCU/Telemetry Discussed with family at bedside. Answer questions/queries Time spent evaluating patient, direct bedside care, chart review, placing orders, interpretation of diagnostic studies, discussion with consultants, patient, and family members, as well as other required patient management activities is 50 minutes Please note the above document was generated using voice recognition software. It may contain grammatical, syntax or spelling errors. Any formal questions or concerns about the content, text or information contained within the body of this dictation should be directly addressed to the provider for clarification Admission and Anticipated Discharge Date Admission Date: December 13, 2023 Subjective Patient seen and examined at bedside. Comfortable; not in distress. Denies fever, chills, chest pain, shortness of breath, abdominal pain or urinary symptoms. No significant overnight events Review of Systems Review of Systems: All systems reviewed & are unremarkable except as noted in Subjective Physical Exam Physical Exam: General Appearance Comfortable; not in any distress. Alert and oriented x 2 Respiratory: Crackles bilaterally on bases; improved Cardiovascular: Regular rate, rhythm, normal peripheral pulses. Significant pitting edema in bilateral lower extremities. Abdomen/GI: Normal bowel sounds, soft, nontender, : Testicular swelling/edema present, tender to palpation. Extremities/Musculoskeletal: 1+ pitting edema. bruise on left hip Neurologic: PERRL, EOMI, accommodation nl, no face palsy, no dysarthria, normal sensation to touch in bilateral LE. Psychiatric: A+Ox2, somewhat agitated. Awake and alert, no acute sensory deficits. Skin: some areas of superficial ulcers. Results & Data Results & Data Vital Signs (Past 12 Hours) Vital Signs Temp Pulse Pulse Resp BP Pulse Ox O2 Del Method 12/19/23 11:54 36.6 C 98 H 18 125/79 100 Room Air 12/19/23 08:23 106 H 12/19/23 07:28 36.4 C L 89 18 134/91 95 Room Air (2) Pulmonary edema Chronicity: acute Qualified Code(s): J81.0 - Acute pulmonary edema (3) Aortic stenosis Cardiac valve disease etiology: nonrheumatic Qualified Code(s): I35.0 - Nonrheumatic aortic (valve) stenosis (9) Pressure injury of skin of sacral region Pressure injury stage: unspecified pressure injury stage Qualified Code(s): L89.159 - Pressure ulcer of sacral region, unspecified stage (11) DMII (diabetes mellitus, type 2) Diabetes mellitus termite control servicer insulin use: without snf use Diabetes mellitus complication status: with other specified complication Qualified Code(s): E11.69 - Type 2 diabetes mellitus with other specified complication (13) Gastroesophageal reflux disease Esophagitis presence: esophagitis presence not specified Qualified Code(s): K21.9 - Gastro-esophageal reflux disease without esophagitis (17) Hypertension Hypertension type: essential hypertension Qualified Code(s): I10 - Essential (primary) hypertension
[2023-12-19] MEDS: PROMETHAZINE HCL 12.5 MG in SODIUM CHLORIDE 0.9% 50 ML IV PRN (20:15)
[2023-12-20 07:25] LABS: Basophils # (auto) 0.03 K/uL (0.00-0.20); Basophils % (auto) 0.5 %; Eosinophils # (auto) 0.02 K/uL (0.00-0.50); Eosinophils % (auto) 0.3 %; Hematocrit (blood only) 32.7 % (42.0-52.0); Hemoglobin 10.4 g/dl (14.0-18.0); Immature Granulocytes # (auto) 0.03 K/uL (0.01-0.20); Immature Granulocytes % (auto) 0.5 %; Lymphocytes # (auto) 0.68 K/uL (1.20-3.40); Lymphocytes % (auto) 10.6 %; Mean Corpuscular Hemoglobin 31.6 pg (25.0-34.0); Mean Corpuscular Hgb Conc 31.8 g/dL (32.0-36.0); Mean Corpuscular Volume 99.4 fL (80.0-100.0); Mean Platelet Volume 10.2 fL (9.4-12.4); Monocytes # (auto) 0.78 K/uL (0.11-0.59); Monocytes % (auto) 12.2 %; Neutrophils # (auto) 4.86 K/uL (1.40-6.50); Neutrophils % (auto) 75.9 %; Platelet Count 84 K/uL (130-400); RDW Coefficient of Variation 15.9 % (11.5-14.5); RDW Standard Deviation 58.3 fL (36.4-46.3); Red Blood Count 3.29 M/uL (4.70-6.10)
[2023-12-20 07:48] LABS: BUN Creatinine Ratio 33.6 (10-20); Calcium 9.2 mg/dl (8.6-10.3); Creatinine Clr Calc Pharmacy 54.5 ml/min; Est GFR (African American) 70.1 ml/min; Est GFR (Non-African American) 60.5 ml/min; Potassium 4.8 mmol/L (3.5-5.1)
[2023-12-20] MEDS ORDERED: FUROSEMIDE 40 MG TAB PO SCH (09:00)
--- NOTE | 2023-12-20 14:36 | Hospitalist Progress Note ---
Date of Service December 20, 2023 Assessment & Plan (1) Acute on chronic heart failure with preserved ejection fraction (HFpEF): (2) Pulmonary edema: (3) Aortic stenosis: (4) Transaminitis: (5) Elevated troponin: (6) Swelling of the testicles: Plan: Srini Ch is an 88 y/o M with PMHx of DM type II, diabetic retinopathy, DM kidney disease, SIADH, dyslipidemia, acquired hypothyroidism, paroxysmal A-fib [ on Eliquis], CAD, HTN, nonrheumatic aortic valve stenosis s/p pacemaker placement, chronic systolic heart failure, GERD, BPH with obstruction/LUTS, urge incontinence, depression and other problems listed below who presented to the ED today for evaluation of SOB and bilateral leg/testicular swelling. Most recent echo performed on 11/17/2023 and revealed the following findings: moderate concentric LVH, thickened/angulated basal septum consistent with sigmoid septum, mild global hypokinesis of the left ventricle, LVEF = 45-50%, calcified aortic valve leaflets w/ restricted leaflet mobility and mild to moderate aortic stenosis, moderate mitral annular calcification and trace mitral regurgitation. Vital signs on admission: BP 123/72, HR 81, RR 18, temp 36.7 C, SpO2 95% on RA. Creatinine elevated at 1.77 --> Baseline Cr ~ 0.88 - Evidence of KARLENE on admission. Initial troponin 84.3> 72 BNP >4700 on admission CXR suggestive of mild pulmonary edema Bilateral LE venous doppler displayed NO evidence of DVT w/in the R or L lower extremity. Patient was discharged on oral urea. However, he was placed on 1 g salt tablets 3 times a day at rehab for hyponatremia. Patient initially diuresed with Lasix 40 mg 3 times daily; switched over to 40 mg p.o. once a day Daily weights Bowel regimen in place, daily Miralax scheduled. Can continue SURGICAL AIDE aspirin. PRN PO Tylenol in place for mild/moderate pain. Will continue SURGICAL AIDE oxycodone therapy for severe pain. Dose decreased to 2.5mg. Avoid salt tablets going forward; will plan to do oral urea for hyponatremia if patient's sodium trends down (7) Acute urinary retention: Plan: -Olivo catheter placed in the ED, Unsuccessful trial of void on December 19, 2023 Olivo catheter placed again Urology consulted for comanagement given frequent retention (8) KARLENE (acute kidney injury): Plan: likely cardiorenal syndrome Continue to monitor renal function and hold any nephrotoxic medications for the time being. Continue lasix (9) Pressure injury of skin of sacral region: Plan: Evaluation of the sacral region revealed few superficial skin ulcers; no i ndication of pressure injury at this time Continue to monitor Every 2 hours turns (10) Confusion: Plan: As per HPI, family reports some recent confusion and agitation since being home. No recent falls or head trauma since being home or at [facility] per the family's recollection. CT head- no acute findings -Monitor for any signs of increasing delirium while hospitalized. will dc oxycodone (11) DMII (diabetes mellitus, type 2): Plan: -Will hold SURGICAL AIDE metformin therapy, initiate SSI regimen while hospitalized. Last recorded Hgb A1C 6.5 on 11/30/22. (12) Dyslipidemia: Plan: Continue lipitor (13) Gastroesophageal reflux disease: Plan: -Can continue SURGICAL AIDE pantoprazole while hospitalized. 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 -Continue SURGICAL AIDE Eliquis therapy for DVT prophylaxis while hospitalized. (17) Hypertension: Plan: -Will continue SURGICAL AIDE metoprolol succinate w/ HOLD PARAMETERS. (18) Chronic hyponatremia: Plan: Hx of chronic hyponatremia --> Sodium 132 on admission. -STOP salt tablets -Continue to monitor sodium level (19) Acquired hypothyroidism: Plan: TSH on admission slightly elevated @ 4.575 --> Will continue SURGICAL AIDE levothyroxine for now. (20) History of depression: (21) Skin irritation: Plan: As per HPI --> reports that he has some skin irritation in his right groin region that has been ongoing for couple of days, she has been applying protective ointment to the region w/o much improvement. -Resembles intertriginous candidiasis on examination. on clotrimazole cream to be applied to the region BID. (22) History of anemia: Plan: -Will continue SURGICAL AIDE iron supplementation. DVT Prophylaxis: Eliquis Code Status: Full Code PCP: Angelo Vazquez MD Dispo: Admit to PCU/Telemetry. Patient hospitalized for multiple issues including acute on chronic heart failure, acute urinary retention. Likely discharge in next few days [facility] as per discussion with family Discussed with family at bedside. Answer questions/queries Time spent evaluating patient, direct bedside care, chart review, placing orders, interpretation of diagnostic studies, discussion with consultants, patient, and family members, as well as other required patient management activities is 50 minutes Please note the above document was generated using voice recognition software. It may contain grammatical, syntax or spelling errors. Any formal questions or concerns about the content, text or information contained within the body of this dictation should be directly addressed to the provider for clarification Admission and Anticipated Discharge Date Admission Date: December 13, 2023 Subjective Patient seen and examined at bedside He is resting well in bed. He does not appear to be in any distress Patient had episode of urinary retention requiring straight catheterization. Review of Systems Review of Systems: All systems reviewed & are unremarkable except as noted in Subjective Physical Exam Physical Exam: General Appearance Comfortable; not in any distress. Alert and oriented x 2 Respiratory: Crackles bilaterally on bases; improved Cardiovascular: Regular rate, rhythm, normal peripheral pulses. Significant pitting edema in bilateral lower extremities. Abdomen/GI: Normal bowel sounds, soft, nontender, : Testicular swelling/edema present, tender to palpation. Extremities/Musculoskeletal:no pitting edema. bruise on left hip Neurologic: PERRL, EOMI, accommodation nl, no face palsy, no dysarthria, normal sensation to touch in bilateral LE. Psychiatric: A+Ox2, somewhat agitated. Awake and alert, no acute sensory deficits. Skin: some areas of superficial ulcers. Results & Data Results & Data Vital Signs (Past 12 Hours) Vital Signs Temp Pulse Pulse Resp BP Pulse Ox O2 Del Method 12/20/23 11:03 36.1 C L 94 H 16 136/87 95 Room Air 12/20/23 07:45 36.3 C L 87 16 153/95 H 96 Room Air 12/20/23 07:35 Room Air 12/20/23 07:10 87 12/20/23 05:00 36.8 C 96 H 16 142/90 H 94 Room Air (2) Pulmonary edema Chronicity: acute Qualified Code(s): J81.0 - Acute pulmonary edema (3) Aortic stenosis Cardiac valve disease etiology: nonrheumatic Qualified Code(s): I35.0 - Nonrheumatic aortic (valve) stenosis (9) Pressure injury of skin of sacral region Pressure injury stage: unspecified pressure injury stage Qualified Code(s): L89.159 - Pressure ulcer of sacral region, unspecified stage (11) DMII (diabetes mellitus, type 2) Diabetes mellitus complication status: with other specified complication Diabetes mellitus terminal operations manager insulin use: without usp use Qualified Code(s): E11.69 - Type 2 diabetes mellitus with other specified complication (13) Gastroesophageal reflux disease Esophagitis presence: esophagitis presence not specified Qualified Code(s): K21.9 - Gastro-esophageal reflux disease without esophagitis (17) Hypertension Hypertension type: essential hypertension Qualified Code(s): I10 - Essential (primary) hypertension
[2023-12-20] MEDS: DICLOFENAC SOD 1% GEL 100 GM TUBE EXT SCH (15:10)
--- NOTE | 2023-12-20 17:00 | Urology Consultation ---
Date of Consultation December 20, 2023 Assessment & Plan (1) Urinary retention: Plan 88yo/M with a PMHx including dementia and multiple other medical issues admitted on 12/13/23 due to inability to urinate, multifactorial volume overload, worsening confusion and agitation. A Olivo catheter was placed on admission. A void trial was performed 12/19/23 which was unsuccesssful. Urology has been asked to evaluate patient today due to repeat episodes of urinary retention. Urinary retention likely multifactorial including underlying BPH, deconditioning/illness, possible infection. Pt afebrile and hemodynamically stable at present Labs today show no leukocytosis and normal renal function (creatinine was 1.77 on admission). Blood cultures 12/13/2023 negative Urinary retention currently managed with Olivo catheter. Olivo catheter intact and draining appropriately - urine is yellow. Recommend checking a urine culture to r/o infection and treat if indicated. Maintain Olivo catheter for at least 7-10 days to allow for bladder decompression/rest. Depending on his clinical course, could consider repeat void trial prior to discharge or this could be arranged with his primary urologist. Continue Finasteride and consider addition of tamsulosin. Would recommend follow-up with his primary urologist (Dr. Tran [facility]) for further evaluation and work-up. Continue supportive care and management per primary team. Urology will follow peripherally. Please call with any further questions or concerns. History of Present Illness Attending Physician: Jose Angel Hayes MD History of Present Illness 88-year-old male with dementia and multiple other medical issues admitted on 12/13/23 due to inability to urinate, multifactorial volume overload, worsening confusion and agitation. Recent mechanical fall noted with multiple injuries as well as recent pacemaker implantation. Urology has been asked to evaluate patient today due to repeat episodes of urinary retention. Per chart review, patient had a Olivo catheter placed on admission 12/13/2023. Unsuccessful void trial on 12/19/2023 and the catheter was reinserted. Per , patient has a hx of BPH. Follows with [facility]. He is on Finasteride. Patient was seen and examined at bedside today. He was awake and resting in bed on arrival. Appears restless and agitated. at bedside who provides most of the history. Olivo intact and draining yellow urine. Allergies Allergy/AdvReac Type Severity Reaction Status Date / Time iodine Allergy Severe DUE TO Verified 12/13/23 15:57 SHELLFISH ALLERGY-IODINATED DYE-UNKNOWN morphine Allergy Severe Anaphylaxis Verified 12/13/23 15:57 shellfish derived Allergy Severe ANAPHYLAXIS Verified 12/13/23 15:57 bee venom protein (honey bee) Allergy Intermediate EXTRA Verified 12/13/23 15:57 SWELLING AT SITES Penicillins Allergy Intermediate RASH Verified 12/13/23 15:57 Home Medications Medication Instructions Recorded Confirmed Type aspirin 81 mg tablet,delayed 81 mg PO QAM 07/21/19 12/13/23 History release atorvastatin 80 mg tablet 80 mg PO HS 07/21/19 12/13/23 History metformin 500 mg tablet 500 mg PO QAM 07/21/19 12/13/23 History pantoprazole 40 mg tablet,delayed 40 mg PO DAILYBB 07/21/19 12/13/23 History release nitroglycerin 0.4 mg sublingual 0.4 mg sublingual Q5M PRN Chest 05/31/21 12/13/23 History tablet Pain finasteride 5 mg tablet 5 mg PO QAM 11/29/22 12/13/23 History iron,carbonyl 65 mg-vitamin C 125 1 tab PO QAM 11/29/22 12/13/23 History mg tablet,delayed release (Vitron-C) levothyroxine 50 mcg tablet 50 mcg PO DAILYBB 11/29/22 12/13/23 History metoprolol succinate 25 mg 25 mg PO DAILY 11/29/22 12/13/23 History tablet,extended release 24 hr apixaban 5 mg tablet (Eliquis) 5 mg PO Q12H #60 tabs 12/01/22 12/13/23 Rx potassium chloride 20 mEq 20 meq PO DAILY #30 tabs 12/01/22 12/13/23 Rx tablet,extended release acetaminophen 650 mg 1,300 mg PO Q8H PRN Pain 07/21/23 12/13/23 History tablet,extended release (Tylenol 8 Hour) escitalopram oxalate 10 mg tablet 10 mg PO QAM 07/21/23 12/13/23 History folic acid 1 mg tablet 1 mg PO DAILY 11/14/23 12/13/23 History furosemide 40 mg tablet (Lasix) 40 mg PO DAILY 11/14/23 12/13/23 History diclofenac sodium 1 % topical gel 2 g EXT Q6H PRN pain #100 grams 11/18/23 12/13/23 Rx (Voltaren Arthritis Pain) oxycodone 5 mg tablet 5 mg PO Q8H PRN pain #10 tabs 11/18/23 12/13/23 Rx urea 15 gram oral powder packet 15 g PO BID #8 ea 11/18/23 12/13/23 Rx (Ure-Na) fluticasone propionate 50 1 spray intranasal DAILY PRN 12/13/23 12/13/23 History mcg/actuation nasal Congestion spray,suspension sodium chloride 1,000 mg soluble 1,000 mg PO TID 12/13/23 12/13/23 History tablet tizanidine 4 mg tablet 4 mg PO BID PRN MUSCLE SPASMS 12/13/23 12/13/23 History Patient History Medical History CHF (congestive heart failure) Anemia Ground-level fall ASCVD (arteriosclerotic cardiovascular disease) Closed right hip fracture Compression fracture of T12 vertebra Compression fracture of lumbar vertebra Labile blood pressure SIADH (syndrome of inappropriate ADH production) COVID-19 Nausea Coronary artery disease Supratherapeutic INR Atypical chest pain Lumbar stenosis Paroxysmal atrial fibrillation Surgical History History of coronary artery bypass graft History of carpal tunnel surgery "bilateral" S/P total hip arthroplasty S/P total knee arthroplasty 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; [facility]" History of percutaneous coronary intervention S/P lumbar microdiscectomy H/O heart artery stent Family History Father Coronary heart disease Social History Smoking Status: Never smoker Second Hand Exposure: No; Do You Dip or Chew Tobacco: No; Hx Alcohol Use: No Hx Substance Use: No Preferred Language: Haitian Communication Ability: Effective Jig And Fixture Builder Apprentice Required: No Beliefs That Will Affect Care: None marital status: Current Living Situation: Spouse current occupational status: retired Other Information That Helps Us Care for You: No Feels Safe at Home: Yes Safety Concerns: Feels Safe At This Time Assistive Devices: Walker Review of Systems Review of Systems: Unobtainable due to cognitive status Physical Exam Constitutional: + ill appearing, + altered mental status and + disheveled; no acute distress Neck: normal visual inspection Respiratory: no respiratory distress and no labored breathing Musculoskeletal: Head/Neck/Chest: normocephalic Skin: No visible rashes or lesions to exposed skin areas Neurologic: moves all extremities and awake Psychiatric: Orientation: alert Genitourinary: Olivo intact. No scrotal edema appreciated on exam. Results & Data Vital Signs (Past 12 Hours) Vital Signs Temp Pulse Pulse Resp BP BP Pulse Ox 12/20/23 15:59 36.3 C L 84 17 133/82 94 12/20/23 11:03 36.1 C L 94 H 16 136/87 95 12/20/23 07:45 36.3 C L 87 16 153/95 H 96 12/20/23 07:35 12/20/23 07:10 87 12/20/23 05:00 36.8 C 96 H 16 142/90 H 94 O2 Del Method 12/20/23 15:59 Room Air 12/20/23 11:03 Room Air 12/20/23 07:45 Room Air 12/20/23 07:35 Room Air 12/20/23 07:10 12/20/23 05:00 Room Air PG Care Time/CCT Total # of Minutes Spent Total Time Spent with Patient: Total time spent is greater than 50% in coordination of care (as documented) at patient's floor/unit and/or counseling patient: Coding Level of Care Code 20447 INT INP/OBS CARE 2/55MIN Diagnoses Urinary retention R33.9
[2023-12-20 22:03] LABS: Appearance Urine Cloudy (Clear); Bacteria Urine Automated 1+ (None Seen); Bilirubin Urine 1+ (Negative); Blood Urine 3+ (Negative); Cast Urine Automated 0-2 /lpf (0-2); Color Urine Orange; Epithelial Cell Urine Auto 0-2 /hpf (0-2); Glucose Urine UA Negative (Negative); Ketones Urine Trace (Negative); Leukocyte Esterase Urine 2+ (Negative); Nitrite Urine Negative (Negative); Protein Urine 2+ (Negative); RBC Urine Automated >20 /hpf (0-2); Specific Gravity Urine 1.023 (1.000-1.030); Urobilinogen Urine Negative (Negative); WBC Urine Automated >50 /hpf (0-5); pH Urine 5.5 (4.5-7.5)
[2023-12-21 06:45] LABS: Basophils # (auto) 0.03 K/uL (0.00-0.20); Basophils % (auto) 0.5 %; Eosinophils # (auto) 0.06 K/uL (0.00-0.50); Eosinophils % (auto) 0.9 %; Hematocrit (blood only) 33.2 % (42.0-52.0); Hemoglobin 10.6 g/dl (14.0-18.0); Immature Granulocytes # (auto) 0.03 K/uL (0.01-0.20); Immature Granulocytes % (auto) 0.5 %; Lymphocytes # (auto) 0.94 K/uL (1.20-3.40); Lymphocytes % (auto) 14.6 %; Mean Corpuscular Hemoglobin 31.8 pg (25.0-34.0); Mean Corpuscular Hgb Conc 31.9 g/dL (32.0-36.0); Mean Corpuscular Volume 99.7 fL (80.0-100.0); Mean Platelet Volume 10.7 fL (9.4-12.4); Monocytes # (auto) 0.76 K/uL (0.11-0.59); Monocytes % (auto) 11.8 %; Neutrophils # (auto) 4.61 K/uL (1.40-6.50); Neutrophils % (auto) 71.7 %; Platelet Count 89 K/uL (130-400); RDW Coefficient of Variation 16.6 % (11.5-14.5); RDW Standard Deviation 61.1 fL (36.4-46.3); Red Blood Count 3.33 M/uL (4.70-6.10); White Blood Count 6.43 K/ul (4.8-10.8)
[2023-12-21 07:10] LABS: BUN Creatinine Ratio 40.9 (10-20); Calcium 9.1 mg/dl (8.6-10.3); Creatinine Clr Calc Pharmacy 52.1 ml/min; Est GFR (African American) 66.4 ml/min; Est GFR (Non-African American) 57.3 ml/min; Potassium 3.9 mmol/L (3.5-5.1)
[2023-12-21] MEDS: FUROSEMIDE 40 MG TAB PO SCH (08:04)
--- NOTE | 2023-12-21 14:41 | Hospitalist Progress Note ---
Date of Service December 21, 2023 Assessment & Plan (1) Urinary retention: (2) Acute on chronic heart failure with preserved ejection fraction (HFpEF): (3) DMII (diabetes mellitus, type 2): (4) UTI (urinary tract infection): (5) KARLENE (acute kidney injury): (6) BPH with obstruction/lower urinary tract symptoms: Plan Patient presented with acute on chronic heart failure in the setting of recent hospitalization for hip fracture. Patient has significantly improved and responded to diuretics. Currently now with some urinary retention possibly associated with urinary tract infection. Urine culture growing out gram- negative bacilli Continue oral diuretics Start oral Keflex for UTI Maintain Olivo until completed course of antibiotics then consider voiding trial in 7 to 10 days Continue therapies Coordinated with care management, bed available at [facility] tomorrow anticipate discharge Admission and Anticipated Discharge Date Admission Date: December 13, 2023 Anticipated date of discharge: 12/22/23 Subjective Patient feeling significantly improved. Breathing is improved. Tolerating Olivo catheter Physical Exam Physical Exam: Constitutional: Alert HEENT: Mucous membranes moist. Lungs: Clear to auscultation, decreased, no wheezes rales or rhonchi CV: S1-S2, regular Abdomen: Soft, nontender, nondistended Extremities: Pretibial edema : Olivo catheter in place Neuro: No focal deficits Psych: Cooperative, normal mood Results & Data Results & Data Vital Signs (Past 12 Hours) Vital Signs Temp Pulse Pulse Resp BP Pulse Ox O2 Del Method 12/21/23 08:15 103 H 12/21/23 08:15 Room Air 12/21/23 07:39 36.5 C 89 18 146/87 H 96 Room Air Diagnostic Findings Reviewed imaging, laboratory and diagnostic studies. Pertinent findings as below. Urine culture growing gram-negative bacilli WBC 6.4 Hemoglobin 10.6, stable (3) DMII (diabetes mellitus, type 2) Diabetes mellitus intermediate designer insulin use: without intermediate designer use Diabetes mellitus complication status: with other specified complication Qualified Code(s): E11.69 - Type 2 diabetes mellitus with other specified complication
[2023-12-21] MEDS: cephALEXin 500 MG CAP PO SCH (16:12)
[2023-12-21] MEDS: ALUMINUM/MAGNESIUM SUSP 30 ML UDC PO PRN (16:19)
--- NOTE | 2023-12-21 18:22 | Communication Note ---
Date of Service: December 21, 2023 Family at bedside this evening. Patient has been having some issues with sundowning the last couple nights. Somewhat better today. Family reports deafly has had disturbed sleep-wake cycle. Also urinary tract infection may be contributing. Trial of melatonin tonight. Continue to evaluate mental status for discharge [facility]
[2023-12-21] MEDS: MELATONIN 3 MG TAB PO SCH (20:49)
--- NOTE | 2023-12-22 05:49 | Communication Note ---
Date of Service: December 22, 2023 Patient with poor urine output overnight as per RN. Serum creatinine 1.15 (12/20) from 1.10 (12/19) AP Poor urine output Increasing creatinine Hold Lasix for now IV albumin 1 dose Check renal function now
[2023-12-22] MEDS: ALBUMIN 25% 25 GM/100 ML VIAL IV ONE (06:06)
[2023-12-22] MEDS: FLUTICASONE PROPIONATE NA SPR 16 GM BTL PRN (08:36)
[2023-12-22 09:31] LABS: Hematocrit (blood only) 34.9 % (42.0-52.0); Hemoglobin 10.7 g/dl (14.0-18.0); Mean Corpuscular Hemoglobin 31.9 pg (25.0-34.0); Mean Corpuscular Hgb Conc 30.7 g/dL (32.0-36.0); Mean Corpuscular Volume 104.2 fL (80.0-100.0); Platelet Count 68 K/uL (130-400); RDW Coefficient of Variation 16.8 % (11.5-14.5); RDW Standard Deviation 64.1 fL (36.4-46.3); Red Blood Count 3.35 M/uL (4.70-6.10); White Blood Count 6.67 K/ul (4.8-10.8)
[2023-12-22 09:32] LABS: Calcium 9.3 mg/dl (8.6-10.3); Potassium 3.6 mmol/L (3.5-5.1)
[2023-12-22 09:38] LABS: BUN Creatinine Ratio 43.3 (10-20); Creatinine Clr Calc Pharmacy 49.9 ml/min; Est GFR (African American) 63.1 ml/min; Est GFR (Non-African American) 54.4 ml/min
--- NOTE | 2023-12-22 13:35 | Hospitalist Progress Note ---
Date of Service December 22, 2023 Assessment & Plan (1) Urinary retention: (2) Acute on chronic heart failure with preserved ejection fraction (HFpEF): (3) DMII (diabetes mellitus, type 2): (4) UTI (urinary tract infection): (5) KARLENE (acute kidney injury): (6) BPH with obstruction/lower urinary tract symptoms: (7) Delirium due to another medical condition: Plan Patient has significantly improved from his acute heart failure, continue with oral diuretics/Lasix and potassium supplementation Patient now with E. coli UTI, this most likely is causing some of his confusion and delirium, sensitive to Keflex, continue oral antibiotic Patient did have some metabolic encephalopathy and delirium most likely due to his UTI and his other medical conditions. This seems to be improving with treatment of the UTI, continue to monitor behaviors Continue therapies Okay for MedSurg Continue melatonin, seemed to help him sleep better last night and hopefully will improve his sleep-wake cycle and help his delirium. Continue to pursue rehab placement at bedside updated the plan of care Admission and Anticipated Discharge Date Admission Date: December 13, 2023 Subjective Patient was mildly confused this morning but able to be redirected. Mentation is significantly improve compared to 48 hours ago. Suspect component of sundowning as well as encephalopathy due to UTI. is at bedside and is quite pleased with his current condition. Physical Exam Physical Exam: Constitutional: Alert, sitting up in chair HEENT: Mucous membranes moist. Lungs: Clear to auscultation, decreased, few crackles at bases CV: S1-S2, irregular Abdomen: Soft, nontender, nondistended Extremities: Trace ankle edema Neuro: No focal deficits Psych: Cooperative, mild abnormal memory Results & Data Results & Data Vital Signs (Past 12 Hours) Vital Signs Temp Pulse Pulse Resp BP Pulse Ox O2 Del Method 12/22/23 11:48 36.4 C L 59 L 16 142/85 H 100 Room Air 12/22/23 07:57 69 12/22/23 07:57 36.6 C 79 16 136/79 91 Room Air Diagnostic Findings Reviewed imaging, laboratory and diagnostic studies. Pertinent findings as below. WBCs 6.6, hemoglobin 10.7 Potassium 3.6, creatinine 1.2, glucose 122 Urine culture growing out pansensitive E. coli (3) DMII (diabetes mellitus, type 2) Diabetes mellitus shelter insulin use: without machine long goods helper use Diabetes mellitus complication status: with other specified complication Qualified Code(s): E11.69 - Type 2 diabetes mellitus with other specified complication
[2023-12-22] MEDS: ONDANSETRON 4 MG OD TAB PO PRN (17:10)
[2023-12-23 08:25] LABS: BUN Creatinine Ratio 42.5 (10-20); Creatinine Clr Calc Pharmacy 49.9 ml/min; Est GFR (African American) 63.1 ml/min; Est GFR (Non-African American) 54.4 ml/min; Potassium 3.3 mmol/L (3.5-5.1)
--- NOTE | 2023-12-23 11:48 | Discharge Summary ---
Discharge Summary Date of Service December 23, 2023 Principal Dx & Hospital Course #1 = Principal Diagnosis (1) Acute on chronic heart failure with preserved ejection fraction (HFpEF): (2) UTI (urinary tract infection): (3) Urinary retention: (4) Delirium due to another medical condition: (5) DMII (diabetes mellitus, type 2): (6) KARLENE (acute kidney injury): (7) BPH with obstruction/lower urinary tract symptoms: Plan Patient was cared for in the hospital. Seem as though the patient had decompensated heart failure was given IV diuresis. Cardiology consultation was obtained and recommended IV diuresis. His pacemaker was interrogated and was within normal limits. Patient also had some significant urinary retention. Urology consultation was placed as well as a Olivo catheter. Urine culture grew out E. coli that was pansensitive. He was treated with oral Keflex. Patient did have some hospital delirium on his suspected underlying mild dementia. Patient's sleep-wake cycle was significantly disturbed throughout his hospitalization and along with a urinary tract infection and the patient being out of his usual routine for all the reasons for this. He was eventually transition to oral diuretics. Olivo catheter was kept in place while he was being treated for urinary tract infection he was continued on his Proscar for some BPH. He was seen by therapies. Care management was involved in his care to help coordinate return to rehab. The day of discharge overall he was cooperative and could be redirected. He was tolerating his oral medications. His sleep cycle was improving with the melatonin. His potassium was repleted before discharge. He could continue to get his therapy and follow-up with outpatient providers at the rehab facility. 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 History obtained partially from patient, and associated ED/previous hospitalization/PCP/specialist records. Of note, patient was recently hospitalized last month [11/14/23-11/18/23] s/p fall and subsequent closed right hip fracture requiring nonoperative management. 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 Patient was also seen by orthospine [Dr. Camp] during that hospitalization for compression fractures of T11 and T12. Per discharge summary documentation, he was to follow- up with the orthospine office in ~2 weeks upon d/c for additional radiographs at the thoracolumbar junction AP and lateral views. Patient was also started on an iron supplement upon discharge d/t acute on chronic anemia. His hemoglobin during that hospitalization stabilized around 8, likely 2/2 blood loss as a result of the hip fracture that occurred. Appears baseline hemoglobin around 11- 12. Patient was d/c to [facility] for rehabilitation therapy. Patient seen at bedside. Patient is accompanied by his and son in the room, who provide most of the history. Patient was just d/c from [facility] yesterday to return home. Son states that he has been increasingly lethargic since coming home yesterday from [facility]. Has been having significant difficulty ambulating, he does use a walker at home at baseline. Has needed a lot of support from his family to move around. Patient is currently reporting pain in his legs and sacral region. Family reports he has sacral wounds present from his stay at [facility]. They have been applying protective cream and bandages to the region, and have noted some improvement. Patient does have a tendency to rip off protective bandaging on his sacral region. Son notes that he has become increasingly confused since being home from [facility]. He is "not acting like himself" per his son. They deny any recent falls or head trauma. notes that he has had a significant decrease in his appetite since the beginning of this year. He has been drinking protein shakes at home, and occasionally drinking soda. He is not really eating full meals; reports that he has been drinking/eating soup here and there. reports that he has some skin irritation in his right groin region that has been ongoing for couple of days, she has been applying protective ointment to the region without much improvement. He has also had some painful testicular swelling since yesterday, and he has not been able to urinate since being home from [facility]. His and son have noted bilateral leg swelling for the past few days as well. He does take 40 mg Lasix on a daily basis. He did take his medications as prescribed this morning. denies any dysphagia concerns, but states he has "difficulty chewing" due to his dentures. Patient does have hearing aids in place. Patient denies any chest pain. His and son report SOB on exertion, moving around or repositioning in bed which resolves rather quickly. He is not on supplemental oxygen therapy at home. He denies any current SOB. Patient mainly complaining of testicular and leg pain. As per above, he is on Eliquis therapy. Patient denies any lightheadedness or dizziness. He currently denies any abdominal pain, but reports his stool has been "pellet shaped." denies any orthopneic concerns, patient sleeps lying flat with no evidence of nocturnal dyspnea. He lives at home with his . Son reports that he has "worsening dementia" at this point, however I could not find that diagnosis in his chart. Most recent echo performed on 11/17/2023 and revealed the following findings: moderate concentric LVH, thickened/angulated basal septum consistent with sigmoid septum, mild global hypokinesis of the left ventricle, LVEF = 45-50%, calcified aortic valve leaflets w/ restricted leaflet mobility and mild to moderate aortic stenosis, moderate mitral annular calcification and trace mitral regurgitation. Vital signs on admission: BP 123/72, HR 81, RR 18, temp 36.7 C, SpO2 95% on RA. --> Not currently requiring any supplemental oxygen therapy at this time. No acute leukocytosis. RBC 3.25, Hgb 10.5 and Hct 33.2. --> As per above, baseline hemoglobin around 11-12. Hx of chronic hyponatremia --> Sodium 132 on admission. Creatinine elevated at 1.77 --> Baseline Cr ~ 0.88 - Evidence of KARLENE on admission. Glucose elevated at 124 on admission, patient takes metformin at home. LFTs elevated @ AST 127, ALT 153 and Alk Phos 140. Total bili 1.6 as well. Initial troponin 84.3, repeat troponin ~2hrs later = 72.4 [DOWNTRENDING]. BNP >4700 on admission, previous hx of chronic systolic HF as above. UA displayed no acute evidence of infection. However, urine was cloudy and RBCs are present in the urine. Chest x-ray revealed the following: * Cardiomegaly w/ suggestion of mild pulmonary edema. * Small pleural effusions w/ left basilar predominant opacities favoring atelectasis. Admission Exam Per Admitting Provider See H&P Discharge Exam Constitutional: Alert, intermittently confused, intermittently oriented to place and time HEENT: Mucous membranes moist. Lungs: Clear to auscultation, decreased, no wheezes rales or rhonchi CV: S1-S2, regular Abdomen: Soft, nontender, nondistended Extremities: No significant edema Neuro: No focal deficits Psych: Cooperative, and redirectable. Sometimes impulsive Updated Medication List Medication Instructions Recorded Confirmed Type aspirin 81 mg tablet,delayed 81 mg PO QAM 07/21/19 12/13/23 History release atorvastatin 80 mg tablet 80 mg PO HS 07/21/19 12/13/23 History metformin 500 mg tablet 500 mg PO QAM 07/21/19 12/13/23 History pantoprazole 40 mg tablet,delayed 40 mg PO DAILYBB 07/21/19 12/13/23 History release nitroglycerin 0.4 mg sublingual 0.4 mg sublingual Q5M PRN Chest 05/31/2112/12 History tablet Pain finasteride 5 mg tablet 5 mg PO QAM 11/29/22 12/13/23 History iron,carbonyl 65 mg-vitamin C 125 1 tab PO QAM 11/29/22 12/13/23 History mg tablet,delayed release (Vitron-C) levothyroxine 50 mcg tablet 50 mcg PO DAILYBB 11/29/22 12/13/23 History metoprolol succinate 25 mg 25 mg PO DAILY 11/29/22 12/13/23 History tablet,extended release 24 hr apixaban 5 mg tablet (Eliquis) 5 mg PO Q12H #60 tabs 12/01/22 12/13/23 Rx potassium chloride 20 mEq 20 meq PO DAILY #30 tabs 12/01/22 12/13/23 Rx tablet,extended release acetaminophen 650 mg 1,300 mg PO Q8H PRN Pain 07/21/23 12/13/23 History tablet,extended release (Tylenol 8 Hour) escitalopram oxalate 10 mg tablet 10 mg PO QAM 07/21/23 12/13/23 History folic acid 1 mg tablet 1 mg PO DAILY 11/14/23 12/13/23 History furosemide 40 mg tablet (Lasix) 40 mg PO DAILY 11/14/23 12/13/23 History diclofenac sodium 1 % topical gel 2 g EXT Q6H PRN pain #100 grams 11/18/23 12/13/23 Rx (Voltaren Arthritis Pain) oxycodone 5 mg tablet 5 mg PO Q8H PRN pain #10 tabs 11/18/23 12/13/23 Rx urea 15 gram oral powder packet 15 g PO BID #8 ea 11/18/23 12/13/23 Rx (Ure-Na) fluticasone propionate 50 1 spray intranasal DAILY PRN 12/13/23 12/13/23 History mcg/actuation nasal Congestion spray,suspension sodium chloride 1,000 mg soluble 1,000 mg PO TID 12/13/23 12/13/23 History tablet tizanidine 4 mg tablet 4 mg PO BID PRN MUSCLE SPASMS 12/13/23 12/13/23 History cephalexin 500 mg capsule 500 mg PO QID 3 days #12 caps 12/23/23 Rx melatonin 3 mg tablet 6 mg (2 x 3 mg) PO HS #60 tabs 12/23/23 Rx risperidone 0.5 mg tablet 0.25 mg (1/2 x 0.5 mg) PO HS #30 12/23/23 Rx (Risperdal) tabs Hospital Stay Data Consultations 12/13/23 15:35 ED Decision to Admit Stat 12/13/23 16:30 Consult Cardiology Routine 12/20/23 13:51 Consult Urology Routine Diagnostic Imagining Performed 12/13/23 14:34 US venous doppler LE BI Stat 12/13/23 17:36 CT lumbar spine wo con Urgent 12/13/23 17:48 CT head/brain wo con Routine 12/14/23 US gallbladder Routine Reviewed imaging, laboratory and diagnostic studies. Pertinent findings as below. Potassium 3.3 and will be repleted prior to discharge Glucose 1 39 Creatinine 1.2 EKG paced rhythm Urine culture E. coli pansensitive Pending Results Patient Have Any Pending Studies at Discharge: No Discharge Instructions Given to Patient (Per Discharging Provider) Glucoscans before meals and at bedtime Physical therapy and Occupational Therapy Encouraged good sleep hygiene Maintain Olivo catheter until treatment for UTI completed, consider voiding trial in approximately 7 days Total Time Total Time Spent Total Time Spent (In Minutes): 39
[2023-12-23] MEDS: POTASSIUM CHLORIDE CRTAB 20 MEQ TABCR PO STA (12:14)
== END 2023-12-23 16:17 | DRG 291 ==
LOC: ED 13:40 → EDINP 15:49 → SUATTDRO 15:49 → 4W 16:40 → 2W 12-19 12:37 → 3W 12-22 16:29
DX: E11.22 Type 2 diabetes mellitus with diabetic chronic kidney disease; R33.9 Retention of urine, unspecified; I35.0 Nonrheumatic aortic (valve) stenosis; Z79.84 Long term (current) use of oral hypoglycemic drugs; I49.5 Sick sinus syndrome; D64.0 Hereditary sideroblastic anemia; Z88.5 Allergy status to narcotic agent; N39.0 Urinary tract infection, site not specified; E11.319 Type 2 diabetes mellitus with unspecified diabetic retinopathy without macular edema; K21.9 Gastro-esophageal reflux disease without esophagitis; Z95.0 Presence of cardiac pacemaker; Z79.82 Long term (current) use of aspirin; I50.33 Acute on chronic diastolic (congestive) heart failure; Z79.01 Long term (current) use of anticoagulants; N50.89 Other specified disorders of the male genital organs; R41.0 Disorientation, unspecified; I13.0 Hypertensive heart and chronic kidney disease with heart failure and stage 1 through stage 4 chronic kidney disease, or unspecified chronic kidney disease; R74.01 Elevation of levels of liver transaminase levels; N18.9 Chronic kidney disease, unspecified; J90 Pleural effusion, not elsewhere classified; N17.9 Acute kidney failure, unspecified; E78.5 Hyperlipidemia, unspecified; I48.0 Paroxysmal atrial fibrillation; E87.1 Hypo-osmolality and hyponatremia; Z88.0 Allergy status to penicillin; I24.89 Other forms of acute ischemic heart disease; G93.41 Metabolic encephalopathy; N40.1 Benign prostatic hyperplasia with lower urinary tract symptoms; E03.9 Hypothyroidism, unspecified; L89.152 Pressure ulcer of sacral region, stage 2

== ENCOUNTER 2024-01-17 14:44 | Inpatient (IN) ==
--- NOTE | 2024-01-17 14:52 | ED Triage Note ---
Date of Service January 17, 2024 Provider in Triage Author: Luis Carlos Barrera History of Present Illness This patient was briefly evaluated while in triage. An abbreviated physical exam was performed. This patient is a 88-year-old Male who presents to the ED for evaluation Sent by Dr. Vazquez for "elevated potassium" unsure how high per family, doing poorly since hip fracture in May decline in last week-confusion, lethargy, anorexia, weakness "I don't feel good." Physical Exam GENERAL: Confused, in wheelchair CARDIOVASCULAR: RRR RESPIRATORY: CTA Initial orders for labs and / or imaging were placed and patient was placed in the waiting area until a bed is available. Please see further documentation for the full ED course.
--- NOTE | 2024-01-17 15:28 | Emergency Department Note ---
Impression & Plan Acute hyperkalemia, Tachy-santy syndrome, KARLENE (acute kidney injury), Chronic systolic heart failure, Weakness, Delirium ED Provider Note Provider: Marvel Rawls MD DATE OF SERVICE: 01/17/2024 CHIEF COMPLAINT: Not eating, fatigue, confusion HISTORY OF PRESENT ILLNESS: Patient is a 88-year-old gentleman past medical history of BPH with chronic Olivo, UTI, urinary retention in the past, CHF with tachybradycardia syndrome and pacemaker, aortic stenosis, hypertension as well as diabetes presenting here today with family for evaluation from abnormal blood work. Had blood work drawn yesterday morning with [facility]. Called due to abnormal kidney function and potassium. Been home just over a week to 10 days from [facility] after stay for rehab. Has been declining while at home. Family state he has not been eating and drinking that much. Has been constipated. No vomiting or fevers reported. Has been having some increased confusion according to them but again no trauma. Has been taking his medications including his blood thinner and diuretic. Not swelling. [facility] blood work from yesterday showed a BUN of 55, creatinine of 2.2, sodium 136, potassium 6.0, anion gap of 19, with a normal white blood cell count of 7.8 and a hemoglobin of 10.8. PAST MEDICAL HISTORY: As noted above MEDICATIONS: Reviewed home medications SOCIAL HISTORY: PHYSICAL EXAM: GENERAL: alert to verbal stimuli in no acute distress on stretcher although resisting IV. Not able to tell me a lot of clear information about himself or history Head: normocephalic and atraumatic EYES: No injection, discharge or icterus. EOMI. NECK: Trachea midline. Supple with good range of motion ENT: Mucous membranes pink and moist. LUNGS: Airway patent. No retractions. Breath sounds clear with good air entry bilaterally. HEART: Regular rate and rhythm. No chest wall tenderness with subcutaneous pacemaker appreciated without surrounding erythema or open wound ABDOMEN: Soft and non-tender, without guarding or rebound. SKIN: Acyanotic, warm, dry, without rashes with a grade 1 sacral decubitus ulcer noted. EXTREMITIES: Without tenderness deformity with trace edema of the lower legs bilaterally. No erythema. NEUROLOGICAL: No focal deficits. No aphasia. No facial droop or slurred speech. Normal strength and tone in the extremities. Sensation to gross touch normal. EK bpm ventricular paced rhythm occasional PACs with a QTc of 563. No clear acute ST segment elevation. CONTINUOUS CARDIAC MONITORING: was ordered and showed a heart rate of 80s to 90s bpm in ventricular paced rhythm with occasional PACs Patient's laboratory studies and imaging reviewed. Differential includes Infection, dehydration, metabolic abnormality, hypo/hyperglycemia, electrolyte disturbance, anemia, hypoxia, cardiac sources, intracerebral event, toxicologic, neurologic, as well as other pathologies. IMPRESSION/MEDICAL DECISION MAKING: Case management assisted with obtaining [facility] blood work from yesterday. Patient unfortunately with some ongoing delirium issues and has been having worsening status since being at home. No falls reported. Chronic Olivo urine appears unwell and will exchange and get a fresh sample and ensure no retention. Fairly benign abdomen but reports some constipation and maybe some abdominal pain reported to family. As such obtain a CT of the head given some of the confusion delirium issue as well as CT of the belly. Chest x-ray obtained but not hypoxic here. Does not appear fluid overloaded anything a bit dry. Will give some gentle hydration about 500 cc.. Has had decreased oral intake. Calcium gluconate as well as bicarb and insulin/dextrose was ordered as well. No findings consistent with acute pancreatitis with very minimal bilirubin 1.7 ALT of 92 and alkaline phosphatase of 169 do not believe this represents hepatitis however. Creatinine elevated today 2.93. CT head without acute pathology per radiology. Coud catheter placed by nursing. Patient somewhat agitated after this but family able to redirect and help calm. Again difficult to know if some component of delirium may be at play. CT of the abdomen pelvis later returns with some mild congestive change and ascites likely underdistention of the colon without evidence of acute diverticulitis. Subacute to chronic T11-T12 deformity is again noted as well as subacute healing periprosthetic fracture of the right femur. Patient moving his legs freely without significant pain and do not believe there is any need for any acute intervention here. However certainly with worsened renal function and hyperkalemia needs to stay in the hospital. Will need close monitoring for fluid overload. Family are in agreement. Hospitalist team was contacted. DIAGNOSIS: KARLENE, hyperkalemia, delirium/weakness, heart failure DISPOSITION: Hospitalist will evaluate Family updated and agreeable with plan. Past Med/Surg History Problem List (Updated 01/17/24 @ 17:06 by Marvel Rawls M.D.) Delirium (Acute) Weakness (Acute) KARLENE (acute kidney injury) (Acute) Acute hyperkalemia (Acute) Delirium due to another medical condition BPH with obstruction/lower urinary tract symptoms UTI (urinary tract infection) Urinary retention Volume overload Swelling of the testicles Skin irritation Transaminitis History of depression History of anemia Acquired hypothyroidism Confusion Acute on chronic heart failure with preserved ejection fraction (HFpEF) Chronic hyponatremia Chronic systolic heart failure (Acute) S/P placement of cardiac pacemaker Dyslipidemia Gastroesophageal reflux disease Pressure injury of skin of sacral region Elevated troponin (Acute) KARLENE (acute kidney injury) (Acute) Acute urinary retention (Acute) DMII (diabetes mellitus, type 2) Tachy-santy syndrome (Acute) Chronic anticoagulation Pulmonary edema (Acute) Aortic stenosis Hypertension (Chronic) Medical History CHF (congestive heart failure) Anemia Ground-level fall ASCVD (arteriosclerotic cardiovascular disease) Closed right hip fracture Compression fracture of T12 vertebra Compression fracture of lumbar vertebra Labile blood pressure SIADH (syndrome of inappropriate ADH production) COVID-19 Nausea Coronary artery disease Supratherapeutic INR Atypical chest pain Lumbar stenosis Paroxysmal atrial fibrillation Surgical History History of coronary artery bypass graft History of carpal tunnel surgery "bilateral" S/P total hip arthroplasty S/P total knee arthroplasty 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; [facility]" History of percutaneous coronary intervention S/P lumbar microdiscectomy H/O heart artery stent Family History Father Coronary heart disease Social History Smoking Status: Never smoker Second Hand Exposure: No; Do You Dip or Chew Tobacco: No; Hx Alcohol Use: No Hx Substance Use: No Preferred Language: Citizen Of [place] Communication Ability: Effective Feather Washer Required: No Beliefs That Will Affect Care: None marital status: Current Living Situation: Spouse current occupational status: retired Feels Safe at Home: Yes Assistive Devices: Walker Allergies Allergies Allergy/AdvReac Type Severity Reaction Status Date / Time iodine Allergy Severe DUE TO Verified 12/13/23 15:57 SHELLFISH ALLERGY-IODINATED DYE-UNKNOWN morphine Allergy Severe Anaphylaxis Verified 12/13/23 15:57 shellfish derived Allergy Severe ANAPHYLAXIS Verified 12/13/23 15:57 bee venom protein (honey bee) Allergy Intermediate EXTRA Verified 12/13/23 15:57 SWELLING AT SITES Penicillins Allergy Intermediate RASH Verified 12/13/23 15:57 Home Meds Home Medications Medication Instructions Recorded Confirmed aspirin 81 mg tablet,delayed 81 mg PO QAM 07/21/19 01/17/24 release atorvastatin 80 mg tablet 80 mg PO HS 07/21/19 01/17/24 metformin 500 mg tablet 500 mg PO QA 07/21/19 01/17/24 pantoprazole 40 mg tablet,delayed 40 mg PO DAILYBB 07/21/19 01/17/24 release nitroglycerin 0.4 mg sublingual 0.4 mg sublingual Q5M PRN Chest 05/31/21 01/17/24 tablet Pain finasteride 5 mg tablet 5 mg PO [facility] 11/29/22 01/17/24 metoprolol succinate 25 mg 25 mg PO [facility] 11/29/22 01/17/24 tablet,extended release 24 hr acetaminophen 650 mg 1,300 mg PO Q8H PRN Pain 07/21/23 01/17/24 tablet,extended release (Tylenol 8 Hour) escitalopram oxalate 10 mg tablet 10 mg PO [facility] 07/21/23 01/17/24 folic acid 1 mg tablet 1 mg PO QA 11/14/23 01/17/24 furosemide 80 mg tablet 80 mg PO [facility] 01/17/24 01/17/24 mirtazapine 15 mg tablet 15 mg PO HS 01/17/24 01/17/24 potassium chloride 20 mEq 20 meq PO [facility] 01/17/24 01/17/24 tablet,extended release Previous Rx's Medication Instructions Recorded apixaban 5 mg tablet (Eliquis) 5 mg PO Q12H #60 tabs 12/01/22 diclofenac sodium 1 % topical gel 2 g EXT Q6H PRN pain #100 grams 11/18/23 (Voltaren Arthritis Pain) melatonin 3 mg tablet 6 mg (2 x 3 mg) PO HS #60 tabs 12/23/23 Results & Data (ED) Vital Signs Vital Signs - 24 hr 01/17/24 14:50 01/17/24 15:03 01/17/24 15:06 Temperature 36.5 C Temperature Source Oral Pulse Rate 95 H 83 88 Pulse Rate from SpO2 Sensor 89 Respiratory Rate 18 21 Respiratory Depth Normal Blood Pressure 102/65 Blood Pressure Mean 77 Pulse Oximetry 94 100 Oxygen Delivery Method Room Air Sepsis Recent Fever Within 48 Hours No Sepsis New/Unexplained Change in Mental Status N/A Sepsis Action Taken by Nursing No Action Required 01/17/24 15:12 01/17/24 15:27 01/17/24 15:52 Temperature Temperature Source Pulse Rate 87 85 Pulse Rate from SpO2 Sensor 87 123 H Respiratory Rate 9 L 21 Respiratory Depth Blood Pressure 124/80 Blood Pressure Mean 100 Pulse Oximetry 100 88 L Oxygen Delivery Method Sepsis Recent Fever Within 48 Hours Sepsis New/Unexplained Change in Mental Status Sepsis Action Taken by Nursing 01/17/24 15:52 01/17/24 15:52 01/17/24 16:00 Temperature Temperature Source Pulse Rate 86 Pulse Rate from SpO2 Sensor Respiratory Rate 17 Respiratory Depth Blood Pressure 124/80 124/80 Blood Pressure Mean 100 100 Pulse Oximetry Oxygen Delivery Method Sepsis Recent Fever Within 48 Hours Sepsis New/Unexplained Change in Mental Status Sepsis Action Taken by Nursing 01/17/24 16:12 01/17/24 16:21 01/17/24 16:33 Temperature Temperature Source Pulse Rate 103 H 96 H 96 H Pulse Rate from SpO2 Sensor Respiratory Rate 29 H 21 22 Respiratory Depth Blood Pressure Blood Pressure Mean Pulse Oximetry Oxygen Delivery Method Sepsis Recent Fever Within 48 Hours Sepsis New/Unexplained Change in Mental Status Sepsis Action Taken by Nursing 01/17/24 16:42 01/17/24 17:39 01/17/24 17:57 Temperature Temperature Source Pulse Rate 88 105 H 93 H Pulse Rate from SpO2 Sensor Respiratory Rate 24 16 19 Respiratory Depth Blood Pressure Blood Pressure Mean Pulse Oximetry Oxygen Delivery Method Sepsis Recent Fever Within 48 Hours Sepsis New/Unexplained Change in Mental Status Sepsis Action Taken by Nursing 01/17/24 18:13 01/17/24 18:13 01/17/24 18:18 Temperature Temperature Source Pulse Rate 98 H Pulse Rate from SpO2 Sensor 97 H Respiratory Rate 31 H Respiratory Depth Blood Pressure 108/79 108/79 Blood Pressure Mean 84 84 Pulse Oximetry 99 Oxygen Delivery Method Sepsis Recent Fever Within 48 Hours Sepsis New/Unexplained Change in Mental Status Sepsis Action Taken by Nursing 01/17/24 18:21 01/17/24 18:30 01/17/24 18:30 Temperature Temperature Source Pulse Rate 91 H Pulse Rate from SpO2 Sensor 93 H Respiratory Rate 22 Respiratory Depth Blood Pressure 111/87 111/87 Blood Pressure Mean 95 95 Pulse Oximetry 100 Oxygen Delivery Method Sepsis Recent Fever Within 48 Hours Sepsis New/Unexplained Change in Mental Status Sepsis Action Taken by Nursing 01/17/24 18:48 Temperature Temperature Source Pulse Rate 91 H Pulse Rate from SpO2 Sensor 94 H Respiratory Rate 34 H Respiratory Depth Blood Pressure Blood Pressure Mean Pulse Oximetry 99 Oxygen Delivery Method Sepsis Recent Fever Within 48 Hours Sepsis New/Unexplained Change in Mental Status Sepsis Action Taken by Nursing Laboratory Data 01/17/24 15:30 01/17/24 18:02 Lab Results 01/17/24 01/17/24 01/17/24 Range/Units 15:24 15:30 18:02 WBC 7.05 (4.8-10.8) K/ul RBC 3.48 L (4.70-6.10) M/uL Hgb 10.8 L (14.0-18.0) g/dl POC Hgb 12.6 L (14.0-18.0) g/dl Hct 34.4 L (42.0-52.0) % POC Hct 37 L (42-52) % MCV 98.9 (80.0-100.0) fL MCH 31.0 (25.0-34.0) pg MCHC 31.4 L (32.0-36.0) g/dL RDW Std Deviation 61.8 H (36.4-46.3) fL RDW Coeff of Geronimo 17.4 H (11.5-14.5) % Plt Count 111 L (130-400) K/uL MPV 11.6 (9.4-12.4) fL Immature Gran % (Auto) 0.4 % Neut % (Auto) 71.5 % Lymph % (Auto) 17.4 % Jasper % (Auto) 10.1 % Eos % (Auto) 0.3 % Baso % (Auto) 0.3 % Neut # (Auto) 5.04 (1.40-6.50) K/uL Lymph # (Auto) 1.23 (1.20-3.40) K/uL Jasper # (Auto) 0.71 H (0.11-0.59) K/uL Eos # (Auto) 0.02 (0.00-0.50) K/uL Baso # (Auto) 0.02 (0.00-0.20) K/uL Immature Gran # (Auto) 0.03 (0.01-0.20) K/uL PT Cancelled INR Cancelled POC Sodium 137 (135-144) mmol/L Sodium 135 L (136-145) mmol/L POC Potassium 6.2 H* (3.3-5.0) mmol/L Potassium TNP 5.7 H POC Chloride 105 (101-112) mmol/L Chloride 101 (98-107) mmol/L Carbon Dioxide 19 L (21-32) mmol/L POC Total CO2 18 L (24-31) mmol/L Anion Gap 15 H (3-11) POC Anion Gap 21.0 (16-25) mmol/L POC BUN 56 H (7-18) mg/dl BUN 67 H (6-23) mg/dl Creatinine 2.93 H (0.6-1.4) mg/dl POC Creatinine 3.1 H (0.6-1.3) mg/dl Est Cr Clr Drug Dosing Not Reportable Est GFR ( Amer) 21.4 ml/min Est GFR (Non-Af Amer) 18.5 ml/min BUN/Creatinine Ratio 22.9 H (10-20) Glucose 134 H (70-99(Fasting)) mg/dl POC Glucose (other) 142 H (70-99) mg/dl Calcium 9.8 (8.6-10.3) mg/dl POC Ioniz Calcium Rossi 1.08 L (1.12-1.32) mmol/l Magnesium 2.4 (1.7-2.4) mg/dl Total Bilirubin 1.7 H (0.2-1.0) mg/dl AST TNP 145 H ALT 92 H (7-52) U/L Alkaline Phosphatase 169 H (34-104) U/L Troponin I High Sens 78.4 H* Cancelled (0-20) pg/ml Total Protein 7.5 (6.0-8.3) gm/dl Albumin 4.0 (3.4-5.0) gm/dl Globulin 3.5 (2.5-4.0) gm/dl Albumin/Globulin Ratio 1.1 (0.9-2) Lipase 84 H (11-82) U/L TSH 7.840 H (0.300-4.500) uIu/ml Free T4 0.96 (0.61-1.60) ng/dl Administered Medications Discontinued Medications Dextrose (Dextrose 50% 50 Ml Syringe) 50 ml IV NOW ONE Stop: 01/17/24 15:40 Last Admin: 01/17/24 16:23 Dose: 50 ml Documented By: CHU Sodium Chloride (Nss) 500 mls @ 999 mls/hr IV .Q31M ONE Stop: 01/17/24 16:08 Last Infusion: 01/17/24 17:58 Dose: Infused Documented By: Admin: 01/17/24 17:09 Dose: 999 mls/hr Documented By: CHU Calcium Gluconate () 1,000 mg in 60 mls @ 240 mls/hr IV Q15M ROMEL Stop: 01/17/24 16:14 Last Infusion: 01/17/24 17:27 Dose: Infused Documented By: Admin: 01/17/24 17:09 Dose: 240 mls/hr Documented By: Infusion: 01/17/24 16:53 Dose: Infused Documented By: Admin: 01/17/24 16:23 Dose: 240 mls/hr Documented By: CHU Acetaminophen (Ofirmev) 1,000 mg in 100 mls @ 400 mls/hr IV NOW STA Stop: 01/17/24 18:34 Last Admin: 01/17/24 18:32 Dose: 400 mls/hr Documented By: CHU Insulin Human Regular (Novolin-R Insulin Per Unit Charge) 8 units IV NOW STA Stop: 01/17/24 15:40 Last Admin: 01/17/24 16:23 Dose: 8 units Documented By: CHU Co-signed By: CLEMENT Lorazepam (Lorazepam 1 Mg/1 Ml Syr Ed Inj Use) 0.25 mg IV ONE STA Stop: 01/17/24 18:21 Last Admin: 01/17/24 18:31 Dose: 0.25 mg Documented By: CHU Sodium Bicarbonate (Sodium Bicarb 8.4% Inj 50 Meq/50 Ml Syr) 50 meq IV NOW STA Stop: 01/17/24 15:40 Last Admin: 01/17/24 16:23 Dose: 50 meq Documented By: CHU Imaging Data Radiologist's Impression: Abdomen/Pelvis CT 01/17/24 15:[address] WITHOUT CONTRAST CT DOSE: 2376.69 mGy.cm HISTORY: constipation, pain, weak TECHNIQUE: Multiaxial CT images of the abdomen and pelvis were performed without contrast. A dose lowering technique was utilized adhering to the principles of ALARA. COMPARISON STUDY: Abdomen and pelvis CT 07/21/2023. FINDINGS: Small right and [id number] left pleural effusions. The heart is mildly enlarged. Pacemaker wires are noted. Mild interlobular septal thickening suggestive of mild congestive change/edema. Consolidation within the lower lobes posteriorly favor compressive atelectasis from the pleural effusions. No pneumoperitoneum. No pneumatosis. Subacute to chronic compression deformities at T11 and T12 again noted. There are poststernotomy changes. There is a subacute/healing comminuted and mildly displaced periprosthetic fracture within the residual proximal right femur primarily involving the greater trochanter. This demonstrates up to 1.2 cm of anterior lateral displacement. Posterior decompression within the lumbar spine. Moderate body wall edema is noted. Presacral edema with diffuse mesenteric/retroperitoneal edema and a small amount of ascites. This is new compared to the prior study. The unenhanced liver, spleen, adrenal glands, and pancreas are unremarkable. A few small gallstones again noted. No gallbladder wall thickening. No renal or ureteral stones. No hydronephrosis. No retroperitoneal lymphadenopathy. Moderate calcified plaque within the normal caliber abdominal aorta. Pelvic lymphadenopathy. The bladder is decompressed by a Olivo catheter. Suboptimal evaluation for bowel pathology due to the lack of intravenous and oral contrast. However, there is no evidence for bowel obstruction. Colonic diverticulosis. No evidence for acute diverticulitis. Mild thickening within the ascending colon is likely due to underdistention. Normal appendix. IMPRESSION: 1. Cardiomegaly with mild congestive change and bilateral pleural effusions. 2. Moderate body wall edema with small amount of ascites. This is new compared the prior study. 3. Questionable thickening within the ascending colon is likely due to underdistention. A low-grade colitis is is not excluded. 4. Colonic diverticulosis. No evidence for acute diverticulitis. 5. Cholelithiasis. 6. Subacute to chronic compression deformities at T11 and T12 again noted. 7. There is a subacute/healing comminuted and mildly displaced periprosthetic fracture within the residual proximal right femur primarily involving the greater trochanter. 8. Additional findings as described above. ACT 112: Negative or not required by law. Electronically signed by: Ac Bullock M.D. 01/17/2024 4:[address] 01/17/24 15:12 CT SCAN OF THE BRAIN WITHOUT IV CONTRAST CLINICAL HISTORY: Change in mental status. COMPARISON STUDY: CT of the brain dated 12/24/2023. TECHNIQUE: Unenhanced axial CT scan of the brain is performed from the vertex to the skull base. A dose lowering technique was utilized adhering to the principles of ALARA. FINDINGS: Brain parenchyma: There is age-related involutional change noting advanced confluent subcortical and periventricular microangiopathic disease. There is no hemorrhage, mass effect, or evidence of acute territorial ischemia by CT criteria. Carrasquillo-white matter differentiation is preserved. No extra-axial fluid collection is seen. Ventricles, sulci, cisterns: Prominent secondary to involutional change. Intracranial vasculature: There is atherosclerotic calcification of the cavernous carotid and vertebral arteries. Calvarium: Unremarkable. Sinuses and mastoids: The visualized paranasal sinuses are clear. There is a left mastoid effusion. The right mastoid air cells are well pneumatized. Orbits: The bony orbits are grossly intact. There are bilateral ocular lens implants. IMPRESSION: There is no hemorrhage, mass effect, or evidence of acute territorial ischemia by CT criteria. ACT 112: Negative or not required by law. Electronically signed by: Yovani Goff M.D. 01/17/2024 4:36 PM Discharge Plan Visit Data Chief Complaint: Referred by Doctor Stated Complaint: REF BY DOC, HIGH POTASSIUM ED Provider: Marvel Rawls Discharge Problem: Acute hyperkalemia, Tachy-santy syndrome, KARLENE (acute kidney injury), Chronic systolic heart failure, Weakness, Delirium Patient Disposition: Being Evaluated by Hospitalist Forms Stand Alone Forms: [facility] [employer] Prescriptions Prescriptions: No Action metformin 500 mg Tablet 500 mg PO QAM atorvastatin 80 mg Tablet 80 mg PO HS aspirin 81 mg Tablet,Delayed Release (Dr/Ec) 81 mg PO QAM pantoprazole 40 mg Tablet,Delayed Release (Dr/Ec) 40 mg PO DAILYBB nitroglycerin 0.4 mg tablet, sublingual 0.4 mg sublingual Q5M PRN (Reason: Chest Pain) metoprolol succinate 25 mg tablet extended release 24 hr 25 mg PO QAM finasteride 5 mg tablet 5 mg PO QAM Eliquis 5 mg tablet 5 mg PO Q12H Qty: 60 0RF acetaminophen [Tylenol 8 Hour] 650 mg Tablet Extended Release 1,300 mg PO Q8H PRN (Reason: Pain) escitalopram oxalate 10 mg tablet 10 mg PO QAM folic acid 1 mg tablet 1 mg PO QAM diclofenac sodium [Voltaren Arthritis Pain] 1 % Gel 2 g EXT Q6H PRN (Reason: pain) Qty: 100 0RF melatonin 3 mg Tablet 6 mg PO HS Qty: 60 0RF mirtazapine 15 mg tablet 15 mg PO HS Rx Instructions: has not started..script still at pharmacy furosemide 80 mg tablet 80 mg PO QAM potassium chloride 20 mEq tablet extended release 20 meq PO QAM Referrals Referrals: Angelo Vazquez MD [Primary Care Provider] -
[2024-01-17 15:37] LABS: iSTAT Creatinine 3.1 mg/dl (0.6-1.3); iSTAT Hemoglobin 12.6 g/dl (14.0-18.0); iSTAT Ionized Calcium 1.08 mmol/l (1.12-1.32); iSTAT Potassium 6.2 mmol/L (3.3-5.0)
[2024-01-17] MEDS: CALCIUM GLUCONATE 1,000 MG/60 ML BAG IV SCH (16:23)
[2024-01-17] MEDS: SODIUM BICARB 8.4% INJ 50 MEQ/50 ML SYR IV STA (16:23)
[2024-01-17] MEDS: DEXTROSE 50% 50 ML SYRINGE IV ONE ×2 (16:23→22:26)
[2024-01-17] MEDS: NovoLIN-R INSULIN PER UNIT CHARGE IV STA (16:23)
[2024-01-17 16:32] LABS: Basophils # (auto) 0.02 K/uL (0.00-0.20); Basophils % (auto) 0.3 %; Eosinophils # (auto) 0.02 K/uL (0.00-0.50); Eosinophils % (auto) 0.3 %; Hematocrit (blood only) 34.4 % (42.0-52.0); Hemoglobin 10.8 g/dl (14.0-18.0); Immature Granulocytes # (auto) 0.03 K/uL (0.01-0.20); Immature Granulocytes % (auto) 0.4 %; Lymphocytes # (auto) 1.23 K/uL (1.20-3.40); Lymphocytes % (auto) 17.4 %; Mean Corpuscular Hgb Conc 31.4 g/dL (32.0-36.0); Mean Corpuscular Volume 98.9 fL (80.0-100.0); Mean Platelet Volume 11.6 fL (9.4-12.4); Monocytes # (auto) 0.71 K/uL (0.11-0.59); Monocytes % (auto) 10.1 %; Neutrophils # (auto) 5.04 K/uL (1.40-6.50); Neutrophils % (auto) 71.5 %; Platelet Count 111 K/uL (130-400); RDW Coefficient of Variation 17.4 % (11.5-14.5); RDW Standard Deviation 61.8 fL (36.4-46.3); Red Blood Count 3.48 M/uL (4.70-6.10); White Blood Count 7.05 K/ul (4.8-10.8)
--- NOTE | 2024-01-17 16:37 | CT Scan Report ---
CT SCAN OF THE BRAIN WITHOUT IV CONTRAST CLINICAL HISTORY: Change in mental status. COMPARISON STUDY: CT of the brain dated 12/24/2023. TECHNIQUE: Unenhanced axial CT scan of the brain is performed from the vertex to the skull base. A do se lowering technique was utilized adhering to the principles of ALARA. FINDINGS: Brain parenchyma: There is age-related involutional change noting advanced confluent subcortical and periventricular microangiopathic disease. There is no hemorrhage, mass effect, or evidence of acute t erritorial ischemia by CT criteria. Carrasquillo-white matter differentiation is preserved. No extra-axial fl uid collection is seen. Ventricles, sulci, cisterns: Prominent secondary to involutional change. Intracranial vasculature: There is atherosclerotic calcification of the cavernous carotid and vertebr al arteries. Calvarium: Unremarkable. Sinuses and mastoids: The visualized paranasal sinuses are clear. There is a left mastoid effusion. T he right mastoid air cells are well pneumatized. Orbits: The bony orbits are grossly intact. There are bilateral ocular lens implants. IMPRESSION: There is no hemorrhage, mass effect, or evidence of acute territorial ischemia by CT nichole helton. ACT 112: Negative or not required by law. Electronically signed by: Yovani Goff M.D. 01/17/2024 4:36 PM
--- NOTE | 2024-01-17 16:49 | CT Scan Report ---
ABDOMEN AND PELVIS CT WITHOUT CONTRAST CT DOSE: 2376.69 mGy.cm HISTORY: constipation, pain, weak TECHNIQUE: Multiaxial CT images of the abdomen and pelvis were performed without contrast. A dose lo wering technique was utilized adhering to the principles of ALARA. COMPARISON STUDY: Abdomen and pelvis CT 07/21/2023. FINDINGS: Small right and [id number] left pleural effusions. The heart is mildly enlarged. Pac emaker wires are noted. Mild interlobular septal thickening suggestive of mild congestive change/kaley a. Consolidation within the lower lobes posteriorly favor compressive atelectasis from the pleural ef fusions. No pneumoperitoneum. No pneumatosis. Subacute to chronic compression deformities at T11 and T12 again noted. There are poststernotomy changes. There is a subacute/healing comminuted and mildly displaced periprosthetic fracture within the residual proximal right femur primarily involving the gr eater trochanter. This demonstrates up to 1.2 cm of anterior lateral displacement. Posterior decompre ssion within the lumbar spine. Moderate body wall edema is noted. Presacral edema with diffuse mesent anjum/retroperitoneal edema and a small amount of ascites. This is new compared to the prior study. Th e unenhanced liver, spleen, adrenal glands, and pancreas are unremarkable. A few small gallstones aga in noted. No gallbladder wall thickening. No renal or ureteral stones. No hydronephrosis. No retroper itoneal lymphadenopathy. Moderate calcified plaque within the normal caliber abdominal aorta. Pelvic lymphadenopathy. The bladder is decompressed by a Olivo catheter. Suboptimal evaluation for bowel pat hology due to the lack of intravenous and oral contrast. However, there is no evidence for bowel obst ruction. Colonic diverticulosis. No evidence for acute diverticulitis. Mild thickening within the asc ending colon is likely due to underdistention. Normal appendix. IMPRESSION: 1. Cardiomegaly with mild congestive change and bilateral pleural effusions. 2. Moderate body wall edema with small amount of ascites. This is new compared the prior study. 3. Questionable thickening within the ascending colon is likely due to underdistention. A low-grade c olitis is is not excluded. 4. Colonic diverticulosis. No evidence for acute diverticulitis. 5. Cholelithiasis. 6. Subacute to chronic compression deformities at T11 and T12 again noted. 7. There is a subacute/healing comminuted and mildly displaced periprosthetic fracture within the res idual proximal right femur primarily involving the greater trochanter. 8. Additional findings as described above. ACT 112: Negative or not required by law. Electronically signed by: Ac Bullock M.D. 01/17/2024 4:47 PM
[2024-01-17 16:53] LABS: Alanine Aminotransferase 92 U/L (7-52); Albumin Globulin Ratio 1.1 (0.9-2); Alkaline Phosphatase 169 U/L (34-104); Anion Gap 15 (3-11); BUN Creatinine Ratio 22.9 (10-20); Bilirubin,Total 1.7 mg/dl (0.2-1.0); Blood Urea Nitrogen 67 mg/dl (6-23); Calcium 9.8 mg/dl (8.6-10.3); Carbon Dioxide 19 mmol/L (21-32); Chloride 101 mmol/L (98-107); Est GFR (African American) 21.4 ml/min; Est GFR (Non-African American) 18.5 ml/min; Globulin 3.5 gm/dl (2.5-4.0); Glucose 134 mg/dl (70-99(Fasting)); Lipase 84 U/L (11-82); Magnesium 2.4 mg/dl (1.7-2.4); Sodium 135 mmol/L (136-145); Total Protein 7.5 gm/dl (6.0-8.3)
[2024-01-17 17:07] LABS: Troponin I High Sensitivity 78.4 pg/ml (0-20)
[2024-01-17] MEDS: SODIUM CHLORIDE 0.9% 500 ML IV ONE (17:09)
--- NOTE | 2024-01-17 17:33 | History & Physical Report ---
Date of Service January 17, 2024 Assessment & Plan (1) Acute hyperkalemia: (2) KARLENE (acute kidney injury): (3) Delirium: (4) Weakness: (5) HFrEF (heart failure with reduced ejection fraction): (6) Aortic stenosis: (7) DMII (diabetes mellitus, type 2): (8) Tachy-santy syndrome: (9) S/P placement of cardiac pacemaker: (10) Hypertension: (11) BPH with obstruction/lower urinary tract symptoms: (12) Urinary retention: (13) History of depression: (14) History of anemia: (15) Acquired hypothyroidism: Plan This is an 88yo M with a PMH of paroxysmal A-fib on Eliquis, HFrEF, history of pacemaker placement, CAD (s/p 3vCABG), HTN, aortic valve stenosis, BPH, depression DM II, SIADH, dyslipidemia, hypothyroidism and other problems listed below who was directed to the ED today due to abnormal outpatient labwork with hyperkalemia and KARLENE. Acute hyperkalemia K of 6.2 initially -> 5.7 In setting of limited PO intake at home, dehydration Treated with insulin, calcium, sodium bicarb in ED Hold home potassium supplements EKG without acute changes Repeat BMP at 2130 KARLENE (acute kidney injury) Cr 2.93 (previous baseline 0.8 but more recently ~ 1.2) Appears dehydrated but h/o HFrEF and aortic stenosis so NSS 500 ml given so far Repeating BMP at 2130 HFrEF Aortic stenosis TTE from 11/17/2023 with moderate concentric LVH, mild global hypokinesis of the left ventricle, LVEF = 45-50%, calcified aortic valve leaflets w/ restricted leaflet mobility and mild to moderate aortic stenosis Appears intravascularly depleted on exam Given 500 NSS in ED Awaiting CXR, BNP to better assess volume status Had suspected cardiorenal syndrome on previous admission Urinary retention Oneill catheter placed during previous admission after unsuccessful trial of void on December 19, 2023 Catheter exchanged today - due to see urology later this month Delirium Metabolic encephalopathy Noted since previous admission, superimposed on suspected mild dementia Was discharged on Risperdal and melatonin to help promote normal sleep-wake cycle states he has not returned to normal mentation since 12/12 admission Per family, PCP changed home meds yesterday and discontinued melatonin and started mirtazapine Head CT without any acute abnormalities Concern polypharmacy contributing to confusion One to one PRN Complicated UTI Abnormal UA in setting of indwelling oneill Given AMS will start empiric Rocephin Follow urine, blood cultures DM II (diabetes mellitus, type 2) A1c 5 on December 2023 admission Admitting bsg 134 Carb consistent diet, adding loose SSI, BSG ACHS 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 Continue home dose levothyroxine, will need repeat thyroid labs as an outpatient History of depression Continue SSRI, started on mirtazapine by PCP DVT Prophylaxis: Eliquis Code Status: Full Code PCP: Angelo Vazquez Dispo: Admitted to PCU Patient seen in collaboration with Dr. Hicks. Please see addendum. I spent a total of 75 minutes coordinating, documenting, and providing care for this patient excluding time spent in the performance of separately billed services. History of Present Illness Chief Complaint: abnormal outpatient labs Primary Care Provider: Angelo Vazquez MD This is an 88yo M with a PMH of paroxysmal A-fib on Eliquis, HFrEF, history of pacemaker placement, CAD (s/p 3vCABG), HTN, aortic valve stenosis, BPH, depression DM II, SIADH, dyslipidemia, hypothyroidism and other problems listed below who was directed to the ED today due to abnormal outpatient labwork. History obtained per chart review and family at bedside as patient is altered. Patient was recently admitted to our service from 12/12- for decompensated heart failure treated with IV diuresis. Also noted to have urinary retention during this admission and Oneill catheter was placed with urology follow up later this month. Noted to have some hospital delirium on his suspected underlying mild dementia and was discharged on Risperdal and melatonin to help promote normal sleep-wake cycle. Was discharged to [facility] and was subsequently discharged home from there 10 days ago. Since returning home, family at bedside notes patient seems weak with decreased p.o. intake. Little to no interest in eating. Seems more delirious and has been mumbling, not making sense. Prior to last hospitalization, this is a significant decline per family. Used to have some mild confusion but has remained confused since discharge. Was seen by PCP yesterday and outpatient lab work done yesterday in anticipation of hospital follow-up, and noted to have elevated potassium of 6 and worsening renal function of creatinine 2.93 (baseline Cr ~1.2) and GFR of 21. Directed to ED for further evaluation. Allergies Allergy/AdvReac Type Severity Reaction Status Date / Time iodine Allergy Severe DUE TO Verified 12/13/23 15:57 SHELLFISH ALLERGY-IODINATED DYE-UNKNOWN morphine Allergy Severe Anaphylaxis Verified 12/13/23 15:57 shellfish derived Allergy Severe ANAPHYLAXIS Verified 12/13/23 15:57 bee venom protein (honey bee) Allergy Intermediate EXTRA Verified 12/13/23 15:57 SWELLING AT SITES Penicillins Allergy Intermediate RASH Verified 12/13/23 15:57 Home Medications Medication Instructions Recorded Confirmed Type aspirin 81 mg tablet,delayed 81 mg PO QAM 07/21/19 01/17/24 History release atorvastatin 80 mg tablet 80 mg PO HS 07/21/19 01/17/24 History metformin 500 mg tablet 500 mg PO QAM 07/21/19 01/17/24 History pantoprazole 40 mg tablet,delayed 40 mg PO DAILYBB 07/21/19 01/17/24 History release nitroglycerin 0.4 mg sublingual 0.4 mg sublingual Q5M PRN Chest 05/31/21 01/17/24 History tablet Pain finasteride 5 mg tablet 5 mg PO QAM 11/29/22 01/17/24 History metoprolol succinate 25 mg 25 mg PO QAM 11/29/22 01/17/24 History tablet,extended release 24 hr apixaban 5 mg tablet (Eliquis) 5 mg PO Q12H #60 tabs 12/01/22 01/17/24 Rx acetaminophen 650 mg 1,300 mg PO Q8H PRN Pain 07/21/23 01/17/24 History tablet,extended release (Tylenol 8 Hour) escitalopram oxalate 10 mg tablet 10 mg PO QAM 07/21/23 01/17/24 History folic acid 1 mg tablet 1 mg PO QAM 11/14/23 01/17/24 History diclofenac sodium 1 % topical gel 2 g EXT Q6H PRN pain #100 grams 11/18/23 01/17/24 Rx (Voltaren Arthritis Pain) melatonin 3 mg tablet 6 mg (2 x 3 mg) PO HS #60 tabs 12/23/23 01/17/24 Rx furosemide 80 mg tablet 80 mg PO QAM 01/17/24 01/17/24 History mirtazapine 15 mg tablet 15 mg PO HS 01/17/24 01/17/24 History potassium chloride 20 mEq 20 meq PO QAM 01/17/24 01/17/24 History tablet,extended release Past Med/Surg History Problem List (Updated 01/17/24 @ 19:18 by Alethea Keenan PA-C) Delirium (Acute) Weakness (Acute) KARLENE (acute kidney injury) (Acute) Acute hyperkalemia (Acute) BPH with obstruction/lower urinary tract symptoms Urinary retention Swelling of the testicles Skin irritation Transaminitis History of depression History of anemia Acquired hypothyroidism Confusion Acute on chronic heart failure with preserved ejection fraction (HFpEF) Chronic hyponatremia Chronic systolic heart failure (Acute) S/P placement of cardiac pacemaker Dyslipidemia Gastroesophageal reflux disease Pressure injury of skin of sacral region Elevated troponin (Acute) KARLENE (acute kidney injury) (Acute) Acute urinary retention (Acute) DMII (diabetes mellitus, type 2) Tachy-santy syndrome (Acute) Chronic anticoagulation Pulmonary edema (Acute) Aortic stenosis Hypertension (Chronic) Medical History (Updated 01/17/24 @ 19:18 by Alethea Keenan PA-C) HFrEF (heart failure with reduced ejection fraction) CHF (congestive heart failure) Anemia Ground-level fall ASCVD (arteriosclerotic cardiovascular disease) Closed right hip fracture Compression fracture of T12 vertebra Compression fracture of lumbar vertebra Labile blood pressure SIADH (syndrome of inappropriate ADH production) COVID-19 Nausea Coronary artery disease Supratherapeutic INR Atypical chest pain Lumbar stenosis Paroxysmal atrial fibrillation Surgical History History of coronary artery bypass graft History of carpal tunnel surgery "bilateral" S/P total hip arthroplasty S/P total knee arthroplasty 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; Ayo" History of percutaneous coronary intervention S/P lumbar microdiscectomy H/O heart artery stent Family History Father Coronary heart disease Social History Smoking Status: Never smoker Second Hand Exposure: No; Do You Dip or Chew Tobacco: No; Hx Alcohol Use: No Hx Substance Use: No Preferred Language: Irish Communication Ability: Effective Stock Taker Required: No Beliefs That Will Affect Care: None marital status: Current Living Situation: Spouse current occupational status: retired Feels Safe at Home: Yes Assistive Devices: Walker Review of Systems Review of Systems: Unobtainable due to cognitive status Physical Exam Physical Exam: General Appearance: WD/WN, vitals as above, appears uncomfortable, delirious, intermittent agitation but redirects easily Head: normocephalic, atraumatic Eyes: normal inspection, PERRL, conjunctivae normal, anicteric sclerae ENT: external ear and nose normal, dry mucous membranes of oropharynx Neck: normal visual inspection, trachea midline, no thyromegaly Respiratory: normal respiratory effort, diminished breath sounds bilaterally. No accessory muscle use Cardiovascular: regular rate, rhythm, + murmur, normal peripheral pulses, 1+ BLE edema Chest: normal inspection of chest Abdomen/GI: normal bowel sounds, soft, nontender, no hepatosplenomegaly : Oneill Extremities/Musculoskeletal: no cyanosis or clubbing, extremities motor strength 5/5 Neurologic: PERRL, EOMI, accommodation nl, no face palsy, no dysarthria, CN's II-XI intact bilaterally and moves all extremities Psychiatric: Alert but not oriented, mumbling, restless Skin: no rashes, normal color, warm/dry Results & Data Results & Data Vital Signs (Past 12 Hours) Vital Signs Temp Pulse Resp BP Pulse Ox O2 Del Method 01/17/24 14:50 36.5 C 95 H 18 102/65 94 Room Air Laboratory Results Short CBC 01/17/24 Range/Units 15:30 WBC 7.05 (4.8-10.8) K/ul Hgb 10.8 L (14.0-18.0) g/dl Hct 34.4 L (42.0-52.0) % Plt Count 111 L (130-400) K/uL BMP 01/17/24 01/17/24 15:30 18:02 Sodium 135 L Potassium TNP 5.7 H Chloride 101 Carbon Dioxide 19 L BUN 67 H Creatinine 2.93 H Glucose 134 H Calcium 9.8 Liver Function 01/17/24 01/17/24 Range/Units 15:30 18:02 Total Bilirubin 1.7 H (0.2-1.0) mg/dl AST TNP 145 H ALT 92 H (7-52) U/L Alkaline Phosphatase 169 H (34-104) U/L Albumin 4.0 (3.4-5.0) gm/dl Diagnostic Findings Abdomen/Pelvis CT 01/17/24 15:[address] WITHOUT CONTRAST CT DOSE: 2376.69 mGy.cm HISTORY: constipation, pain, weak TECHNIQUE: Multiaxial CT images of the abdomen and pelvis were performed without contrast. A dose lowering technique was utilized adhering to the principles of ALARA. COMPARISON STUDY: Abdomen and pelvis CT 07/21/2023. FINDINGS: Small right and [id number] left pleural effusions. The heart is mildly enlarged. Pacemaker wires are noted. Mild interlobular septal thickening suggestive of mild congestive change/edema. Consolidation within the lower lobes posteriorly favor compressive atelectasis from the pleural effusions. No pneumoperitoneum. No pneumatosis. Subacute to chronic compression deformities at T11 and T12 again noted. There are poststernotomy changes. There is a subacute /healing comminuted and mildly displaced periprosthetic fracture within the residual proximal right femur primarily involving the greater trochanter. This demonstrates up to 1.2 cm of anterior lateral displacement. Posterior decompression within the lumbar spine. Moderate body wall edema is noted. Presacral edema with diffuse mesenteric/retroperitoneal edema and a small amount of ascites. This is new compared to the prior study. The unenhanced liver, spleen, adrenal glands, and pancreas are unremarkable. A few small gallstones again noted. No gallbladder wall thickening. No renal or ureteral stones. No hydronephrosis. No retroperitoneal lymphadenopathy. Moderate calcified plaque within the normal caliber abdominal aorta. Pelvic lymphadenopathy. The bladder is decompressed by a Oneill catheter. Suboptimal evaluation for bowel pathology due to the lack of intravenous and oral contrast. However, there is no evidence for bowel obstruction. Colonic diverticulosis. No evidence for acute diver ticulitis. Mild thickening within the ascending colon is likely due to underdistention. Normal appendix. IMPRESSION: 1. Cardiomegaly with mild congestive change and bilateral pleural effusions. 2. Moderate body wall edema with small amount of ascites. This is new compared the prior study. 3. Questionable thickening within the ascending colon is likely due to underdistention. A low-grade colitis is is not excluded. 4. Colonic diverticulosis. No evidence for acute diverticulitis. 5. Cholelithiasis. 6. Subacute to chronic compression deformities at T11 and T12 again noted. 7. There is a subacute/healing comminuted and mildly displaced periprosthetic fracture within the residual proximal right femur primarily involving the greater trochanter. 8. Additional findings as described above. ACT 112: Negative or not required by law. Electronically signed by: Ac Bullock M.D. 01/17/2024 4:[address] 01/17/24 15:12 CT SCAN OF THE BRAIN WITHOUT IV CONTRAST CLINICAL HISTORY: Change in mental status. COMPARISON STUDY: CT of the brain dated 12/24/2023. TECHNIQUE: Unenhanced axial CT scan of the brain is performed from the vertex to the skull base. A dose lowering technique was utilized adhering to the principles of ALARA. FINDINGS: Brain parenchyma: There is age-related involutional change noting advanced confluent subcortical and periventricular microangiopathic disease. There is no hemorrhage, mass effect, or evidence of acute territorial ischemia by CT criteria. Carrasquillo-white matter differentiation is preserved. No extra-axial fluid collection is seen. Ventricles, sulci, cisterns: Prominent secondary to involutional change. Intracranial vasculature: There is atherosclerotic calcification of the cavernous carotid and vertebral arteries. Calvarium: Unremarkable. Sinuses and mastoids: The visualized paranasal sinuses are clear. There is a left mastoid effusion. The right mastoid air cells are well pneumatized. Orbits: The bony orbits are grossly intact. There are bilateral ocular lens implants. IMPRESSION: There is no hemorrhage, mass effect, or evidence of acute territorial ischemia by CT criteria. ACT 112: Negative or not required by law. Electronically signed by: Yovani Goff M.D. 01/17/2024 4:36 PM ECG Additional Comments: Paced rhythm Supervising Physician Co-Signing Physician Notes Attending addendum: The patient was seen and examined in the emergency room in presence of the family members He was sent in with abnormal labs and noted to have acute confusion with increasing pain in pannus and also in lower abdomen during examination Apparently has not been eating or drinking enough and not been making much urine through Oneill He was given intravenous Tylenol and also intravenous Ativan to control pain and anxiety He received initial management for hyperkalemia and will be admitted to hospital for continuation of care On examination In distress due to pain in the lower abdomen and also in the pannus Hemodynamically stable Chest-bibasilar crackles Heart-S1-S2 with a 2/6 ESM over precordium and aortic area Abdomen-benign Extremities-trace edema bilaterally 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 Seems to be pleasantly confused at this moment His labs, imaging studies and EKG noted CT of the head-unremarkable CT of the abdomen pelvis-showed cardiomegaly with mild congestive change and bilateral pleural effusion, moderate body wall edema with a small amount of ascites, cholelithiasis without cholecystitis and no diverticulitis. Noted to have subacute/chronic compression deformities in T11 and T12 . There is subacute/healing comminuted and mildly displaced periprosthetic fracture within the residual proximal right femur primarily involving the greater trochanter. Noted to have high potassium of 6.2 with BUN of 67 and creatinine 2.93 without any history of chronic kidney disease as noted in the chart He was given calcium gluconate, insulin dextrose, and sodium bicarb in the ER His PRP will be rechecked and if the kidney function does not get any better he will need to have nephrology evaluation His other significant medical conditions to be managed as above and remained stable. Agree with and take the full responsibility of the assessment plan as outlined above by OPAL [address] Dr (6) Aortic stenosis Cardiac valve disease etiology: nonrheumatic Qualified Code(s): I35.0 - Nonrheumatic aortic (valve) stenosis (7) DMII (diabetes mellitus, type 2) Diabetes mellitus complication status: with other specified complication Diabetes mellitus mcfp insulin use: without mcfp use Qualified Code(s): E11.69 - Type 2 diabetes mellitus with other specified complication (10) Hypertension Hypertension type: essential hypertension Qualified Code(s): I10 - Essential (primary) hypertension
[2024-01-17 17:52] LABS: T4 Free Thyroxine 0.96 ng/dl (0.61-1.60)
[2024-01-17] MEDS: LORazepam 1 MG/1 ML SYR ED Inj Use IV STA (18:31)
[2024-01-17] MEDS: ACETAMINOPHEN 1,000 MG/100 ML VIAL IV STA (18:32)
[2024-01-17 18:48] LABS: Potassium 5.7 mmol/L (3.5-5.1)
[2024-01-17 18:55] LABS: Troponin I High Sensitivity 77.9 pg/ml (0-20)
[2024-01-17 18:58] LABS: INR 3.5 (0.9-1.1)
[2024-01-17 19:04] LABS: Appearance Urine Cloudy (Clear); Bacteria Urine Automated 4+ (None Seen); Bilirubin Urine Negative (Negative); Blood Urine 3+ (Negative); Cast Urine Automated >20 /lpf (0-2); Color Urine Yellow; Glucose Urine UA Negative (Negative); Granular Casts Urine Present /lpf (None Prsent); Hyaline Casts Urine Present /lpf (None Presnt); Ketones Urine Negative (Negative); Leukocyte Esterase Urine 2+ (Negative); Nitrite Urine Negative (Negative); Protein Urine 2+ (Negative); RBC Urine Automated >20 /hpf (0-2); Specific Gravity Urine 1.013 (1.000-1.030); Urobilinogen Urine Negative (Negative); WBC Urine Automated >50 /hpf (0-5); pH Urine 5.5 (4.5-7.5)
[2024-01-17] MEDS ORDERED: POLYETHYLENE (MIRALAX) 17 GM PACK PO PRN (19:54)
[2024-01-17] MEDS ORDERED: ACETAMINOPHEN 325 MG TAB PO PRN (19:54)
[2024-01-17] MEDS ORDERED: ACETAMINOPHEN 1,000 MG/100 ML VIAL IV PRN (20:28)
--- NOTE | 2024-01-17 20:34 | Communication Note ---
Date of Service: January 17, 2024 He is allergic to morphine with history of anaphylaxis. He tolerated intravenous Dilaudid in July. He can be given small dose of intravenous Dilaudid if needed to control severe pain. Dr Carla Hicks
[2024-01-17] MEDS: cefTRIAXone SODIUM 2,000 MG/50 ML BAG IV SCH (21:06)
[2024-01-17] MEDS: SODIUM CHLORIDE 0.9% 1,000 ML IV SCH (21:06)
[2024-01-17] MEDS: APIXABAN 5 MG TABLET PO SCH (21:17)
[2024-01-17] MEDS: MIRTAZAPINE TAB 15 MG TAB PO SCH (21:17)
[2024-01-17] MEDS: ATORVASTATIN 40 MG TAB PO SCH (21:17)
[2024-01-17 22:01] LABS: BUN Creatinine Ratio 23.1 (10-20); Creatinine Clr Calc Pharmacy 20.7 ml/min; Est GFR (African American) 21.3 ml/min; Est GFR (Non-African American) 18.4 ml/min; Potassium 6.1 mmol/L (3.5-5.1)
[2024-01-17 22:07] LABS: Troponin I High Sensitivity 78.2 pg/ml (0-20)
[2024-01-17] MEDS: INSULIN HUMAN REGULAR PER UNIT 10 UNITS in SYRINGE 0 ML IV ONE (22:26)
[2024-01-17] MEDS: CALCIUM GLUCONATE 1,000 MG/60 ML BAG IV STA (22:32)
[2024-01-17] MEDS: SODIUM ZIRCONIUM CYCLOSILICATE 10 GM PACKET PO STA (23:04)
[2024-01-17] MEDS: LORazepam 0.25 MG in SYRINGE 0.125 ML IV STA (23:50)
[2024-01-18] MEDS: PANTOprazole 40 MG TAB PO SCH (06:41)
[2024-01-18 07:41] LABS: Basophils # (auto) 0.01 K/uL (0.00-0.20); Basophils % (auto) 0.1 %; Hematocrit (blood only) 34.2 % (42.0-52.0); Hemoglobin 10.9 g/dl (14.0-18.0); Immature Granulocytes # (auto) 0.04 K/uL (0.01-0.20); Immature Granulocytes % (auto) 0.5 %; Lymphocytes # (auto) 0.83 K/uL (1.20-3.40); Lymphocytes % (auto) 9.4 %; Mean Corpuscular Hemoglobin 31.3 pg (25.0-34.0); Mean Corpuscular Hgb Conc 31.9 g/dL (32.0-36.0); Mean Corpuscular Volume 98.3 fL (80.0-100.0); Mean Platelet Volume 12.7 fL (9.4-12.4); Monocytes # (auto) 0.78 K/uL (0.11-0.59); Monocytes % (auto) 8.9 %; Neutrophils # (auto) 7.14 K/uL (1.40-6.50); Neutrophils % (auto) 81.1 %; Platelet Count 81 K/uL (130-400); RDW Coefficient of Variation 17.3 % (11.5-14.5); RDW Standard Deviation 61.8 fL (36.4-46.3); Red Blood Count 3.48 M/uL (4.70-6.10)
[2024-01-18] MEDS ORDERED: GLUCAGON FOR INJ 1 MG VIAL SQ PRN (07:56)
[2024-01-18] MEDS ORDERED: GLUCOSE 10 TAB/TUBE PO PRN (07:56)
[2024-01-18] MEDS ORDERED: GLUCOSE 40% GEL 15 GM TUBE PO PRN (07:56)
[2024-01-18] MEDS ORDERED: CARBOHYDRATES FOR HYPOGLYCEMIA PO PRN (07:56)
[2024-01-18 08:12] LABS: Albumin Globulin Ratio 1.3 (0.9-2); Albumin Level 3.6 gm/dl (3.4-5.0); BUN Creatinine Ratio 24.1 (10-20); Bilirubin,Total 1.9 mg/dl (0.2-1.0); Calcium 9.4 mg/dl (8.6-10.3); Creatinine Clr Calc Pharmacy 20.3 ml/min; Est GFR (African American) 20.9 ml/min; Globulin 2.8 gm/dl (2.5-4.0); Magnesium 2.3 mg/dl (1.7-2.4); Phosphorus 4.3 mg/dl (2.5-4.9); Total Protein 6.4 gm/dl (6.0-8.3)
[2024-01-18 08:36] LABS: Potassium 6.8 mmol/L (3.5-5.1)
[2024-01-18] MEDS: DEXTROSE 50% 50 ML SYRINGE IV PRN (08:39)
[2024-01-18] MEDS: CALCIUM GLUCONATE 1,000 MG/60 ML BAG IV ONE (09:11)
[2024-01-18] MEDS: SODIUM BICARBONATE 8.4% 150 MEQ in DEXTROSE 5% 1,000 ML IV ONE (09:11)
[2024-01-18] MEDS: SODIUM ZIRCONIUM CYCLOSILICATE 10 GM PACKET PO SCH (09:20)
[2024-01-18] MEDS: FINASTERIDE 5 MG TAB PO SCH (09:20)
[2024-01-18] MEDS: ASPIRIN 81 MG ECTAB PO SCH (09:20)
[2024-01-18] MEDS: ESCITALOPRAM OXALATE 10 MG TAB PO SCH (09:20)
[2024-01-18] MEDS: METOPROLOL SUCC 25MG EXT REL TAB PO SCH (09:20)
[2024-01-18 09:38] LABS: Acanthocytes 1+; Echinocytes 1+; Polychromasia 1+
[2024-01-18] MEDS: ONDANSETRON INJ 2 MG/ML 2 ML VIAL IV PRN (09:48)
--- OUTSIDE RECORDS SUMMARY | 2024-01-18 10:16 | External Medical Summary ---
Author Name Unknown Address Unknown Organization [id number]:[facility] [place] - [address] [facility] [place] [id number] Laboratory Report Ordering Provider Test Date Status ANALI CHASE 01/16/2024 10:30:15 Final Observation Date Value Abnormality Reference (Units ) Status SYNC LEUKOCYTES IN BLOOD BY AUTOMATED COUNT 01/16/2024 10:30:15 7.81 4.00-10.80 (K/uL) Final Segs 01/16/2024 10:30:15 67.9 40.0-75.0 (%) Final Lymphs % 01/16/2024 10:30:15 18.7 18.0-42.0 (%) Final Monos 01/16/2024 10:30:15 12.4 Above high normal 1.0-11.0 (%) Final Eosinophils 01/16/2024 10:30:15 0.3 0.0-6.0 (%) Final Basos 01/16/2024 10:30:15 0.1 0.0-2.0 (%) Final Immature Granulocyte, Percent 01/16/2024 10:30:15 0.6 0.0-2.0 (%) Final Absolute Segs 01/16/2024 10:30:15 5.30 1.80-7.70 (K/uL) Final Lymphs, absolute 01/16/2024 10:30:15 1.46 1.00-4.80 (K/ul) Final Monos, Abs 01/16/2024 10:30:15 0.97 0.00-1.10 (K/uL) Final Eos, Abs 01/16/2024 10:30:15 0.02 0.00-0.70 (K/uL) Final Basos, Abs 01/16/2024 10:30:15 0.01 0.00-0.20 (K/uL) Final Immature Granulocytes, Number 01/16/2024 10:30:15 0.05 0.00-0.20 (K/uL) Final Performing Location [facility] - [facility] [address] [facility] [id number]
--- OUTSIDE RECORDS SUMMARY | 2024-01-18 10:16 | External Medical Summary ---
Author Name Unknown Address Unknown Organization [id number]:[facility]AT[facility] [place] - [address] [place] [id number] Laboratory Report Ordering Provider Test Date Status RENAANALI 01/16/2024 10:30:15 Final Observation Date Value Abnormality Reference (Units ) Status Retic, % (auto) 01/16/2024 10:30:15 2.65 Above high normal 0.80-1.90 (%) Final Reticulocytes, Absolute 01/16/2024 10:30:15 90.6 31.3-100.1 (K/uL) Final Reticulocyte fraction, immature 01/16/2024 10:30:15 33.3 Above high normal 2.5-20.6 (%) Final Reticulocyte HGB 01/16/2024 10:30:15 32.3 29.7-37.4 (pg) Final Performing Location LAB[facility]ATORY [facility] - [address] [place] [id number]
--- OUTSIDE RECORDS SUMMARY | 2024-01-18 10:16 | External Medical Summary ---
Author Name Unknown Address Unknown Organization [id number]:[facility] [address] [place] [id number] Laboratory Report Ordering Provider Test Date Status ANALI CHASE 01/16/2024 10:30:15 Final Observation Date Value Abnormality Reference (Units ) Status Ferritin 01/16/2024 10:30:15 285 30-400 (ng /mL) Final Performing Location LABORATORY [facility] - [address] [place] [id number]
--- OUTSIDE RECORDS SUMMARY | 2024-01-18 10:16 | External Medical Summary ---
Author Name Unknown Address Unknown Organization [id number]:[facility]ORY [facility] [address] [facility] [place] [address] Laboratory Report Ordering Provider Test Date Status ANALI CHASE 01/16/2024 10:30:15 Final Observation Date Value Abnormality Reference (Units ) Status WBC, Total 01/16/2024 10:30:15 7.81 4.00-10.8 0 (K/uL) Final RBC 01/16/2024 10:30:15 3.38 4.50-5.25 (M/uL) Final Hemoglobin 01/16/2024 10:30:15 10.8 Below low normal 14 .0-16.8 (g/dL) Final Anemia reflex testing trigge rs on a HGB < 12.0 for Females and HGB < 13.0 for Males in accordance with the WHO Anemia Guidelines
Anemia reflex testing triggers on a HGB < 12.0 for Females and HGB < 13.0 for Males in accordance with the WHO Anemia Guidelines HCT 01/16/2024 10:30:15 34.2 Below low normal 40. 0-48.4 (%) Final MCV 01/16/2024 10:30:15 101.2 82.0-99.5 (fL) Final MCH 01/16/2024 10:30:15 32.0 27.0-34.0 (pg) Final MCHC 01/16/2024 10:30:15 31.6 32.0-36.0 (g/dL) Final RDW 01/16/2024 10:30:15 17.2 11.5-15.5 (%) Final Platelets 01/16/2024 10:30:15 117 Below low normal 140 -400 (K/uL) Final MPV 01/16/2024 10:30:15 11.7 6.6-11.1 ( fL) Final Nucleated erythrocytes/100 leukocytes [Ratio] in Blood by Automated count 01/16/2024 10:30:15 0 <=0 (/100 WBCs) Fi nal Performing Location LAB[facility]ORY [facility] - [facility] [address] [place] [address]
--- OUTSIDE RECORDS SUMMARY | 2024-01-18 10:16 | External Medical Summary | Summary of Care ---
Author Name Unknown Organization [facility] Address [address] [facility] [place] [address] Phone [phone] Care Team Providers Care Softwood Faller Name Role Phone Angelo Vazquez MD Primary Care Provider + Reason for Visit * Reason Comments Outpatient Testing Encounter Details Date Type Department Care Team (Late st Contact Info) Description 01/16/2024 10:50 AM EDT Laboratory Laboratory, [facility] [address] [facility] [place] [address] [facility] 132 [place] [address] Low folic acid; Pre-op testing; SIADH (syndrome of inappropriate ADH production) ([facility]); Generalized weakness Allergies Active Allergy Reactions Criticality Noted Date Comments Bee Venom 12/30/2015 Iodine Other (Please comment) 08/18/2011 Pt says not to use due to shellfish allergy Morphine Anaphylaxis High 08/18/2011 Penicillins Rash 08/18/2011 Shellfish Allergy Edema airway High 08/18/2011 documented as of this encounter (statuses as of 01/16/2024) Medications Medication Sig Dispensed Refills Start Date [...] Tablet (Lipitor)Indication s:Paroxysmal atrial fibrillation (HCC),CAD in [place] artery,S/P CABG x 3 TAKE ONE TABLET BY MOUTH DAILY 90 Tablet 3 01/20/2023 01/25/2024 Active metFORMIN HCl 500 MG Oral Tablet (Glucophage)Indicat ions:Type 2 diabetes mellitus with hemoglobin A1c goal of less than 8.0% (HCC) TAKE ONE TABLET BY MOUTH DAILY 90 Tablet 3 04/21/2023 04/20/2024 Active Nitroglycerin 0.4 MG Sublingual Tablet Sublingual (Nitrostat)Indicati ons:CAD in [place] artery DISSOLVE 1 TABLET UNDER THE TONGUE [...] before bedtime. 60 Tablet 1 09/27/2023 Active Additional Information Patient not taking.Reported on 01/16/2024 Escitalopram Oxalate 10 MG Oral Tablet (Lexapro)Indication [...] DAILY 90 Tablet 3 10/26/2023 10/25/2024 Active oxyCODONE HCl 5 MG Oral Tablet (Oxy IR) take 1 tablet by mouth every 8 hours as needed for pain (Scale 4-10) 10 Tablet 12/10/2023 Active Sodium Chloride 1 GM Oral Tablet take 1 tablet by mouth 3 times daily 100 Tablet 12/10/2023 Active Levothyroxine Sodium 50 MCG Oral Tablet (Levoxyl) Take 1 Tablet by mouth daily first thing in the morning. 90 Tablet 3 12/14/2023 Active Cephalexin 500 MG Oral Capsule (Keflex) take 1 capsule (500 mg) orally four times daily for 3 days 12 Capsule 12/23/2023 Active Melatonin 3 MG Oral Tablet take 6 mg (2 tablets x 3 mg) orally at bedtime 60 Tablet 12/23/2023 Active risperiDONE 0.5 MG Oral Tablet (RisperDAL) take 1/2 tablet by mouth at bedtime 30 Tablet 12/23/2023 Active Furosemide 80 MG Oral Tablet (Lasix) 1 tab Oral Daily 30 Tablet 01/08/2024 Active QUEtiapine Fumarate 50 MG Oral Tablet (SEROquel) Take 1 tablet by mouth every day at bedtime. 30 Tablet 01/08/2024 Active Chlorhexidine Gluconate 0.12 % Mouth/Throat Solution (Periogard) Rinse mouth with 15 mL twice daily 946 mL 01/09/2024 Active documented as of this encounter (statuses as of 01/16/2024) Active Problems Problem Noted Date Diagnosed Date Acute on chronic heart failure 01/16/2024 Medical home patient encounter 11/18/2023 Chronic systolic heart failure 09/27/2023 DM kidney disease 09/27/2023 Renal cyst, acquired, left 01/18/2023 Urge incontinence 01/18/2023 Well adult exam 12/03/2022 Overview: 12/01 TTE [facility] Dyspnea on exertion 11/29/2022 Spinal stenosis of [...] Dysthymia 11/30/2011 Coronary artery disease invo lving [place] coronary artery of [place] heart without angina pectoris Overview: 05/30/14 3V CABG [facility] Prior: 5 stents-hx angina. Drug eluting, & bare metal. Most recent 11/18 1986 LCAD PTCA 12.04 LAD & mid circ drug eluting stents 8.08-distal RCA non drug eluting stent 11/13/10 LAD Ion drug eluting stent 01/14/11 Cardiolite EF55% no ischemia Gastroesophageal reflux disease Overview: Particles are regurgitant, some acid reflux, not much coughing Dyslipidemia documented as of this encounter (statuses as of 01/16/2024) Resolved Problems Problem Noted Date Diagnosed Date [...] as of this encounter (statuses as of 01/16/2024) Immunizations Name Administration Dates Next Due COVID-19 mRNA, LNP-s, No Pre serve, 2-Dose Series ([employer]) 06/11/2021,10/09/2020,09/19/2020 Covid-19, Mrna, Lnp-s, Pf, B ivalent, 30 Mcg, IM, 12 yrs and above ([employer]) 05/03/2022 H1N1 2009 Influenza, IM 06/23/2009 Pneumococcal [...] money to get more. Never true 12/03/2022 Utilities Answer Date Recorded Do you have trouble paying y our heating, water, or electric bill? (Adult - for ages 18 years and over) Not on file 12/27/2023 Is your family able to pay t he heat, water, or electric bill? (Household - for ages 0-17 years) Not on file 12/27/2023 Does your family have access to good internet? (Household - for ages 0-17 years) Not on file 12/27/2023 Social Connections Answer Date Recorded How often do you feel lonely or isolated from those around you? (Adult - for ages 18 years and over) Not on file 12/27/2023 Sex and Gender Information Value Date Recorded [...] Care Team (Late st Contact Info) Description 01/24/2024 1:30 PM EDT Office Visit Urology, [facility] [address] [place] [address] George Tran MD [address] [place] [address] 02/13/2024 2:30 PM EDT Cardiac Studies Cardiology, [facility] 132 [facility] [place] [address] [place] [address] [place] [address] 02/13/2024 3:30 PM EDT Office Visit Cardiology, [facility] [address] [place] [address] Esmer Alvarez PA-C [address] [place] [address] [address] 02/22/2024 4:00 PM EDT Office Visit Family Practice [facility] 132 [facility] [place] [address] Angelo Vazquez MD [address] [place] [address] 03/13/2024 3:00 PM EDT Cardiac Studies Cardiac Studies, [facility] 132 [facility] [place] [address] Pending Results Name Type Priority Associated Diagnoses Date /Time FOLIC ACID Lab Routine Low folic acid 01/16/2024 10:30 AM EDT CBC WITH WBC DIFFERENTIAL AND ANEMIA REFLEX WORKUP Lab Routine Generalized weakness 01/16/2024 10:30 AM EDT COMPREHENSIVE METABOLIC PANEL Lab Routine Generalized weakness 01/16/2024 10:30 AM EDT ANEMIA CBC Lab Routine Generalized weakness 01/16/2024 10:30 AM EDT DIFFERENTIAL, AUTOMATED Lab Routine Generalized weakness 01/16/2024 10:30 AM EDT ANEMIA REFLEX CHEMISTRY HOLD Lab Routine Generalized weakness 01/16/2024 10:30 AM EDT Health Maintenance Due Date Last Done Comments Colonoscopy 11/02/2022 11/02/2017, 02/09, 03/05/2014 COVID-19 Vaccine ( season) 2023 05/03/2022, 06/11/2021, 10/09/2020, Additional history exists Diabetic Foot Exam 06/01/2023 06/01/2022, 0 12/08/2018, 09/08/2017, Additional history exists Diabetic Eye Exam 11/06/2023 11/05/2022, , 08/06/2022, Additional history exists Depression Monitoring 12/04/2023 12/03/2022 Albumin/Creatinine Ratio 12/08/2023 023, 06/15/2021, 06/06/2019, Additional history exists Influenza Vaccine (FLU shot) (#1) 2024 03/24/2023, 04/20/2022, 04/23/2021, Additional history exists HbA1c 05/23/2024 11/21/2023, 07/12, 02/08/2023, Additional history exists B-12 09/26/2024 09/27/2023, 07/12, 07/19/2022, Additional history exists TSH 11/29/2024 11/30/2023, 11/08, 09/27/2023, Additional history exists DTaP,Tdap,and Td Vaccines (2 - Td or Tdap) 02/09/2026 02/10/2016, 04/06/2010 RETIRED - COLONOSCOPY-EVERY 5 YRS AGES 18-100 Discontinued 11/02/2017, 03/05/2014, 03/05/2014, Additional history exists Zoster Vaccines Completed 06/06/2019, 11/10, 02/10/2016 Pneumococcal Vaccine: 65+ Years Completed 04/02/2020, 01/23/2016, 09/15/2014, Additional history exists HPV (Gardasil) Vaccine Aged Out No lo nger eligible based on patient's age to complete this topic Hepatitis B Vaccine Aged Out No longe r eligible based on patient's age to complete this topic MENINGOCOCCAL (MENACTRA/MENVEO) Aged Out No longer eligible based on patient's age to complete this topic documented as of this encounter Medical Devices Implanted Type Area Pcu Rn Device Identifier Shelf Expiration Date Model / Serial / Lot Sut Steel 6 M654g - [id number] Implanted:Qty: 4 on 05/30/2014 by Stanislav Hilliard MD at [place] [facility] N/A: Chest JNJ : [employer] 02/07/2019 M654G / / [id number] Marker Coronary Am-Sd - [id number] Implanted:Qty: 2 on 05/30/2014 by Stanislav Hilliard MD at [place] [facility] N/A: Aorta [employer] 03/10/2017 AMGM-SD / / [id number] Lens Intraoc 20.5 - [id number] - [id number] Implanted:Qty: 1 on 02/18/2022 by Yandel Bowens MD at OR [facility] Left: Eye [employer] 11/07/2026 [id number] / [id number] / [id number] Lens Intraoc 21.5 - [id number] - [id number] Implanted:Qty: 1 on 03/04/2022 by Yandel Bowens MD at [facility] Right: Eye [employer] LOMB 10/08/2026 [id number] / [id number] / [id number] documented as of this encounter Visit Diagnoses Diagnosis Low folic acid Pre-op testing Preoperative examination, unspecified 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 No Care Teams Softwood Faller Relationship Specialty Start Date End Date Angelo Vazquez MD [address] [place] [address] PCP - General Family Medicine 06/24/14 documented as of this encounter
--- OUTSIDE RECORDS SUMMARY | 2024-01-18 10:16 | External Medical Summary ---
Author Name Unknown Address Unknown Organization K01:LAB[facility]ATORY [facility] - [address] [place] [address] Laboratory Report Ordering Provider Test Date Status ANALI CHASE 01/16/2024 10:30:15 Final Observation Date Value Abnormality Reference (Units ) Status TSH 01/16/2024 10:30:15 7.69 Above high normal 0. 27-4.20 (uIU/mL) Final Performing Location [facility] - [address] [place] [address]
--- OUTSIDE RECORDS SUMMARY | 2024-01-18 10:16 | External Medical Summary ---
Author Name Unknown Address Unknown Organization K01:LABORATORY [facility] - [address] [place] [address] Laboratory Report Ordering Provider Test Date Status ANALI CHASE 01/16/2024 10:30:15 Final Observation Date Value Abnormality Reference (Units ) Status Iron 01/16/2024 10:30:15 34 Below low normal 45-176 (ug/dL) Final Iron-binding capacity 01/16/2024 10:30:15 281 250-425 (ug/dL) Final Transferrin Sat % 01/16/2024 10:30:15 12 Below low normal 15-55 (%) Final Performing Location [facility] - [address] [place] [address]
--- OUTSIDE RECORDS SUMMARY | 2024-01-18 10:16 | External Medical Summary ---
Author Name Unknown Address Unknown Organization [id number]:LABORATORY [facility] - [address] [place] [address] Laboratory Report Ordering Provider Test Date Status ANALI CHASE 01/16/2024 10:30:15 Final Observation Date Value Abnormality Reference (Units ) Status Vitamin B12 01/16/2024 10:30:15 >2000 Above high normal 232-1245 (pg/mL) Final Performing Location [facility] - [address] [place] [address]
--- OUTSIDE RECORDS SUMMARY | 2024-01-18 10:16 | External Medical Summary | Summary of Care ---
Author Name Unknown Organization [facility] Address [address] [place] [facility] [place] [address] Phone [phone] Care Team Providers Care Car Cleaner Name Role Phone Angelo Vazquez MD Primary Care Provider + Reason for Visit * Reason Comments Outpatient Testing Encounter Details Date Type Department Care Team (Late st Contact Info) Description 01/16/2024 10:50 AM EDT Laboratory Laboratory, [facility] 132 [facility] [address] [facility] 132 [place] [address] Low folic acid; Pre-op testing; SIADH (syndrome of inappropriate ADH production) ([facility]); Generalized weakness Allergies Active Allergy Reactions Criticality [...] Tablet (Lipitor)Indicati ons:Paroxysmal atrial fibrillation (HCC),CAD in [place] artery,S/P CABG x 3 TAKE ONE TABLET BY MOUTH DAILY 90 Tablet 3 01/20/2023 01/25/20 24 Active metFORMIN HCl 500 MG Oral Tablet (Glucophage)Indic ations:Type 2 diabetes mellitus with hemoglobin A1c goal of less than 8.0% (HCC) TAKE ONE TABLET BY MOUTH DAILY 90 Tablet 3 04/21/2023 04/20/20 24 Active Nitroglycerin 0.4 MG Sublingual Tablet Sublingual (Nitrostat)Indica tions:CAD in [place] artery DISSOLVE 1 TABLET UNDER THE TONGUE [...] CHEW THE TABLET. 90 Tablet 3 08/19/2023 08/18/19 25 Active tiZANidine HCl 4 MG Oral Tablet (Zanaflex) Take 1 Tablet by mouth in the morning and 1 Tablet before bedtime. 60 Tablet 1 09/27/2023 Active Additional Information Patient not taking.Reported on 01/16/2024 Escitalopram Oxalate 10 MG Oral Tablet (Lexapro)Indicati [...] BY MOUTH DAILY 90 Tablet 3 10/26/2023 10/26/19 25 Active oxyCODONE HCl 5 MG Oral Tablet [...] tab Oral Daily 30 Tablet 01/08/2024 Active Chlorhexidine Gluconate 0.12 % Mouth/Throat Solution (Periogard) Rinse mouth with 15 mL twice daily 946 mL 01/09/2024 Active QUEtiapine Fumarate 50 MG Oral Tablet (SEROquel) Take 1 tablet by mouth every day at bedtime. 30 Tablet 01/08/2024 01/16/20 24 Discontinued documented as of this encounter (statuses as of 01/16/2024) Active Problems Problem Noted Date Diagnosed Date Acute on chronic heart failure 01/16/2024 Medical home patient encounter 11/18/2023 Chronic systolic heart failure 09/27/2023 DM kidney disease 09/27/2023 Renal cyst, acquired, left 01/18/2023 Urge incontinence 01/18/2023 Well adult exam 12/03/2022 Overview: 12/01 TTE [facility] Dyspnea on exertion 11/29/2022 Spinal stenosis of [...] Dysthymia 11/30/2011 Coronary artery disease invo lving [place] coronary artery of [place] heart without angina pectoris Overview: 05/30/14 3V CABG [facility]. Prior: 5 stents-hx angina. Drug [...] mRNA, LNP-s, No Pre serve, 2-Dose Series ([employer]) 06/11/2021,10/09/2020,09/19/2020 Covid-19, Mrna, Lnp-s, Pf, B ivalent, 30 Mcg, IM, 12 yrs and above ([employer]) 05/03/2022 H1N1 2009 Influenza, IM 06/23/2009 Pneumococcal [...] 01/24/2024 1:30 PM EDT Office Visit Urology, [facility] [address] [place] [address] George Tran MD [address] [place] [address] 02/13/2024 2:30 PM EDT Cardiac Studies Cardiology, [facility] [address] [place] [address] [facility] [address] [place] [address] 02/13/2024 3:30 PM EDT Office Visit Cardiology, [facility] [address] [place] [address] Esmer Alvarez PA-C [address] [place] [address] 02/22/2024 4:00 PM EDT Office Visit Family Practice [facility] [address] [place] [address] Angelo Vazquez MD [address] [place] [address] 03/13/2024 3:00 PM EDT Cardiac Studies Card[facility] Studies, [facility] [place] [address] Pending Results Name Type Priority Associated Diagnoses Date /Time FOLIC ACID Lab Routine Low folic acid 01/16/2024 10:30 AM EDT OSMOLALITY, SERUM Lab Routine SIADH (syndrome of inappropriate ADH production) ([facility]) 01/16/2024 11:13 AM EDT CBC WITH WBC DIFFERENTIAL AND [...] this encounter Medical Devices Implanted Type Area Garment Folder Device Identifier Shelf Expiration Date Model / Serial / Lot Sut Steel 6 M654g - [id number] Implanted:Qty: 4 on 05/30/2014 by Stanislav Hilliard MD at OR [facility] N/A: Chest JNJ : [employer] 02/07/2019 M654G / / [id number] Marker Coronary Am-Sd - [id number] Implanted:Qty: 2 on 05/30/2014 by Stanislav Hilliard MD at OR [facility] N/A: Aorta [employer] 03/10/2017 AMGM-SD / / [id number] Lens Intraoc 20.5 - [id number] - [id number] Implanted:Qty: 1 on 02/18/2022 by Yandel Bowens MD at OR [facility] Left: Eye [employer]OM[employer] 11/07/2026 [id number] / [id number] / [id number] Lens Intraoc 21.5 - [id number] - [id number] Implanted:Qty: 1 on 03/04/2022 by Yandel Bowens MD at OR [facility] Right: Eye [employer]OM[employer] 10/08/2026 [id number] / [id number] / [id number] documented as of this encounter Visit Diagnoses [...] Power of Attor jennifer? No Care Teams Car Cleaner Relationship Specialty Start Date End Date Angelo Vazquez MD [address] [place] [address] PCP - General Family Medicine 06/24/14 documented as of this encounter
--- OUTSIDE RECORDS SUMMARY | 2024-01-18 10:16 | External Medical Summary | Summary of Care ---
Author Name Unknown Organization [facility] Address [address] [facility] [place] [address] Phone [phone] Care Team Providers Care President & Ceo Name Role Phone Angelo Vazquez MD Primary Care Provider + Reason for Visit * Reason Comments Outpatient Testing Encounter Details Date Type Department Care Team (Late st Contact Info) Description 01/16/2024 10:50 AM EDT Laboratory Laboratory, [facility] [address] [place] [address] [facility] 132 [place] [address] Low folic acid; Pre-op testing; SIADH (syndrome of inappropriate ADH production) ([facility]); Generalized weakness Allergies Active Allergy Reactions Criticality [...] Tablet (Lipitor)Indicati ons:Paroxysmal atrial fibrillation (HCC),CAD in [place] artery,S/P CABG x 3 TAKE ONE TABLET BY MOUTH DAILY 90 Tablet 3 01/20/2023 01/25/20 24 Active metFORMIN HCl 500 MG Oral Tablet (Glucophage)Indic ations:Type 2 diabetes mellitus with hemoglobin A1c goal of less than 8.0% (HCC) TAKE ONE TABLET BY MOUTH DAILY 90 Tablet 3 04/21/2023 04/20/20 24 Active Nitroglycerin 0.4 MG Sublingual Tablet Sublingual (Nitrostat)Indica tions:CAD in [place] artery DISSOLVE 1 TABLET UNDER THE TONGUE [...] adult exam 12/03/2022 Overview: 12/01 TTE [facility] Dyspnea on exertion 11/29/2022 Spinal stenosis [...] Dysthymia 11/30/2011 Coronary artery disease invo lving [place] coronary artery of [place] heart without angina pectoris Overview: 05/30/14 3V [...] mRNA, LNP-s, No Pre serve, 2-Dose Series ([employer]) 06/11/2021,10/09/2020,09/19/2020 Covid-19, Mrna, Lnp-s, Pf, B ivalent, 30 Mcg, IM, 12 yrs and above ([employer]) 05/03/2022 H1N1 2009 Influenza, IM 06/23/2009 Pneumococcal [...] 01/24/2024 1:30 PM EDT Office Visit Urology, [facility] [address] [place] [address] George Tran MD [address] [place] [address] 02/13/2024 2:30 PM EDT Cardiac Studies Cardiology, [facility] [address] [place] [address] [facility] [address] [place] [address] 02/13/2024 3:30 PM EDT Office Visit Cardiology, [facility] [address] [place] [address] Esmer Alvarez PA-C [address] [place] [address] 02/22/2024 4:00 PM EDT Office Visit Family Practice [facility] [address] [place] [address] Angelo Vazquez MD [address] [place] [address] 03/13/2024 3:00 PM EDT Cardiac Studies [facility] Studies, [facility] [place] [address] Pending Results Name Type Priority Associated Diagnoses Date /Time FOLIC ACID Lab Routine Low folic acid 01/16/2024 10:30 AM EDT OSMOLALITY, SERUM Lab Routine SIADH (syndrome of inappropriate ADH production) ([facility]) 01/16/2024 11:13 AM EDT CBC WITH WBC [...] this encounter Medical Devices Implanted Type Area Lead Php Developer Device Identifier Shelf Expiration Date Model / Serial / Lot Sut Steel 6 M654g - [id number] Implanted:Qty: 4 on 05/30/2014 by Stanislav Hilliard MD at OR [facility] N/A: Chest JNJ : [employer] 02/07/2019 M654G / / [id number] Marker Coronary Am-Sd - [id number] Implanted:Qty: 2 on 05/30/2014 by Stanislav Hilliard MD at OR [facility] N/A: Aorta [employer] 03/10/2017 AMGM-SD / / [id number] Lens Intraoc 20.5 - [id number] - [id number] Implanted:Qty: 1 on 02/18/2022 by Yandel Bowens MD at OR [facility] Left: Eye [employer]OM[employer] 11/07/2026 [id number] / [id number] / [id number] Lens Intraoc 21.5 - [id number] - [id number] Implanted:Qty: 1 on 03/04/2022 by Yandel Bowens MD at OR [facility] Right: Eye [employer]OM[employer] 10/08/2026 [id number] / [id number] / [id number] documented as of this encounter Visit Diagnoses [...] Power of Attor jennifer? No Care Teams President & Ceo Relationship Specialty Start Date End Date Angelo Vazquez MD [address] [place] [address] PCP - General Family Medicine 06/24/14 documented as of this encounter
--- OUTSIDE RECORDS SUMMARY | 2024-01-18 10:16 | External Medical Summary ---
Author Name Unknown Address Unknown Organization K01:LABORATORY [facility] - [address] [place] [address] Laboratory Report Ordering Provider Test Date Status ANALI CHASE 01/16/2024 10:30:15 Final Observation Date Value Abnormality Reference (Units ) Status Folic Acid 01/16/2024 10:30:15 >20.0 >4.5 (ng/ mL) Final Performing Location [facility] - [address] [place] [address]
--- OUTSIDE RECORDS SUMMARY | 2024-01-18 10:16 | External Medical Summary | Summary of Care ---
Author Name Unknown Organization [facility] Address [address] [place] [facility] [place] [address] Phone [phone] Care Team Providers Care Vba Developer Name Role Phone Angelo Vazquez MD Primary Care Provider + Reason for Visit * Reason Comments Outpatient Testing Encounter Details Date Type Department Care Team (Late st Contact Info) Description 01/16/2024 10:50 AM EDT Laboratory Laboratory, [facility] [address] [facility] [address] [facility] [address] [place] [address] Low folic acid; Pre-op testing; SIADH (syndrome of inappropriate ADH production) ([facility]LY [facility]); Generalized weakness Allergies Active Allergy Reactions Criticality [...] adult exam 12/03/2022 Overview: 12/01 TTE [facility] Dyspnea on exertion 11/29/2022 Spinal stenosis [...] without angina pectoris Overview: 05/30/14 3V CABG [facility]. Prior: 5 stents-hx angina. Drug eluting, & [...] Sleep apnea EVAL 02/28 FOB WNL 12/27 CLAER WNL 2018 colon/upper. +small tubular adenomas. Upper [...] mRNA, LNP-s, No Pre serve, 2-Dose Series ([employer]) 06/11/2021,10/09/2020,09/19/2020 Covid-19, Mrna, Lnp-s, Pf, B ivalent, 30 Mcg, IM, 12 yrs and above ([employer]) 05/03/2022 H1N1 2009 Influenza, IM 06/23/2009 Pneumococcal [...] 01/24/2024 1:30 PM EDT Office Visit Urology, [facility] [address] [address] George Tran MD [address] [address] 02/13/2024 2:30 PM EDT Cardiac Studies Cardiology, [facility] [address] [facility] [place] [address] [place], Pacer Clinic [facility] [address] [place] [address] 02/13/2024 3:30 PM EDT Office Visit Cardiology, [facility] [address] [place] [address] Esmer Alvarez PA-C [address] [address] 02/22/2024 4:00 PM EDT Office Visit Family Practice [facility] [address] [facility] [place] [address] Angelo Vazquez MD [address] [place] [address] 03/13/2024 3:00 PM EDT Cardiac Studies Cardiac Studies, [facility] [address] [facility] [place] [address] Pending Results Name Type Priority Associated Diagnoses [...] this encounter Medical Devices Implanted Type Area Clinical Social Work Therapist Device Identifier Shelf Expiration Date Model / Serial / Lot Sut Steel 6 M654g - [id number] Implanted:Qty: 4 on 05/30/2014 by Stanislav Hilliard MD at OR [facility] N/A: Chest JNJ : [employer] 02/07/2019 M654G / / [id number] Marker Coronary Am-Sd - [id number] Implanted:Qty: 2 on 05/30/2014 by Stanislav Hilliard MD at OR [facility] N/A: Aorta [employer] 03/10/2017 [employer] / / [id number] Lens Intraoc 20.5 - [id number] - [id number] Implanted:Qty: 1 on 02/18/2022 by Yandel Bowens MD at OR [facility] Left: Eye [employer] 11/07/2026 [id number] / [id number] / [id number] Lens Intraoc 21.5 - [id number] - [id number] Implanted:Qty: 1 on 03/04/2022 by Yandel Bowens MD at [facility] Right: Eye [employer] LOMB 10/08/2026 [id number] / [id number] / [id number] documented as of this encounter Visit Diagnoses [...] Power of Attor jennifer? No Care Teams Vba Developer Relationship Specialty Start Date End Date Angelo Vazquez MD [address] [place] [address] PCP - General Family Medicine 06/24/14 documented as of this encounter
--- OUTSIDE RECORDS SUMMARY | 2024-01-18 10:16 | External Medical Summary ---
Author Name Unknown Address Unknown Organization K0G:[facility] [address] [place] [address] Laboratory Report Ordering Provider Test Date Status ANALI CHASE 01/16/2024 10:30:15 Final Observation Date Value Abnormality Reference (Units ) Status BUN 01/16/2024 10:30:15 55 Above high normal 6-20 (mg/dL) Final Creatinine 01/16/2024 10:30:15 2.2 Above high normal 0.6-1.2 (mg/dL) Final Glomerular filtration rate/1.73 sq M.predicted [Volume Rate/Area] in Serum, Plasma or Blood by Creatinine-based formula (CKD-EPI) 01/16/2024 10:30:15 28 Below low normal >=60 (mL/min) Final eGFR is calculated based on the CKD-EPI 2020 equation Sodium 01/16/2024 10:30:15 136 135-146 (m mol/L) Final Potassium 01/16/2024 10:30:15 6.0 Above high normal 3. 5-5.1 (mmol/L) Final Cl 01/16/2024 10:30:15 97 Below low normal 98- 107 (mmol/L) Final CO2 01/16/2024 10:30:15 20 Below low normal 22- 32 (mmol/L) Final Anion gap 01/16/2024 10:30:15 19 Above high normal 7- 15 (mmol/L) Final Glucose 01/16/2024 10:30:15 158 Above high normal 70 -120 (mg/dL) Final Albumin 01/16/2024 10:30:15 4.1 3.8-5.0 (g /dL) Final AST (Aspartate aminotransferase) 01/16/2024 10:30:15 125 Above high normal 10-50 (U/L) Final Alk Phos 01/16/2024 10:30:15 176 Above high normal 35 -130 (U/L) Final Bilirubin, Total 01/16/2024 10:30:15 1.5 Above high no rmal <=1.2 (mg/dL) Final Calcium 01/16/2024 10:30:15 9.7 8.4-10.2 ( mg/dL) Final Protein 01/16/2024 10:30:15 7.0 6.0-8.3 (g /dL) Final ALT (Alanine aminotransferase) 01/16/2024 10:30:15 82 Above high normal 10-50 (U/L) Final Performing Location [facility] [place] [address] [facility] [address]
--- OUTSIDE RECORDS SUMMARY | 2024-01-18 10:16 | External Medical Summary ---
Author Name Unknown Address Unknown Organization K01:[facility] [address] [place] [address] Laboratory Report Ordering Provider Test Date Status ANALI CHASE 01/16/2024 11:13:59 Final Observation Date Value Abnormality Reference (Units ) Status Osmolality 01/16/2024 11:13:59 310 Above high normal 2 78-305 (mOsm/kg) Final Performing Location [facility] - [address] [place] [address]
--- OUTSIDE RECORDS SUMMARY | 2024-01-18 10:17 | External Medical Summary | Summary of Care ---
Author Name Unknown Organization [facility] Address [address] [place] [address] Phone [phone] Care Team Providers Care Cigar Binder Name Role Phone Angelo Vazquez MD Primary Care Provider + Reason for Visit * Reason Onset Date Comments Home Health 01/10/2024 Advice 01/10/2024 Encounter Details Date Type Department Care Team (Late st Contact Info) Description 01/10/2024 Telephone Family Practice [facility] [address] [place] [address] Angelo Vazquez MD [address] [place] [address] Home Health; Advice Allergies Active Allergy Reactions Criticality Noted Date Comments Bee Venom 12/30/2015 Iodine Other (Please comment) 08/18/2011 Pt says not to use due to shellfish allergy Morphine Anaphylaxis High 08/18/2011 Penicillins Rash 08/18/2011 Shellfish Allergy Edema airway High 08/18/2011 documented as of this encounter (statuses as of 01/13/2024) Medications Medication Sig Dispensed Refills Start Date [...] Tablet (Lipitor)Indication s:Paroxysmal atrial fibrillation (HCC),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,S/P CABG x 3 TAKE ONE TABLET BY MOUTH DAILY 90 Tablet 3 01/20/2023 01/25/2024 Active metFORMIN HCl 500 MG Oral Tablet (Glucophage)Indicat ions:Type 2 diabetes mellitus with hemoglobin A1c goal of less than 8.0% (HCC) TAKE ONE TABLET BY MOUTH DAILY 90 Tablet 3 04/21/2023 04/20/2024 Active Nitroglycerin 0.4 MG Sublingual Tablet Sublingual (Nitrostat)Indicati ons: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 DISSOLVE 1 TABLET UNDER THE TONGUE [...] as of this encounter (statuses as of 01/13/2024) Active Problems Problem Noted Date Diagnosed Date Medical home patient encounter 11/18/2023 Chronic systolic heart failure 09/27/2023 DM kidney disease 09/27/2023 Renal cyst, acquired, left 01/18/2023 Urge incontinence 01/18/2023 Well adult exam 12/03/2022 Overview: 12/01 TTE [facility] Dyspnea on exertion 11/29/2022 Spinal stenosis [...] Mild 2013 PAF (paroxysmal atrial fibrillation) 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. Prior: 5 stents-hx [...] as of this encounter (statuses as of 01/13/2024) Resolved Problems Problem Noted Date Diagnosed Date [...] as of this encounter (statuses as of 01/13/2024) Immunizations Name Administration Dates Next Due COVID-19 mRNA, LNP-s, No Pre serve, 2-Dose Series ([employer]) 06/11/2021,10/09/2020,09/19/2020 Covid-19, Mrna, Lnp-s, Pf, B ivalent, [...] encounter Miscellaneous Notes * Telephone Encounter - Waleska Zimmerman LPN - 01/13/2024 11:50 AM EDT Patient's , Savannah calling back. Jaswinder, nurse saw the patient yesterday. Patient hasn't had a BM since 01/08.Took Miralax yesterday- no BM yet. Appetite poor. Giving the patient Boost, eats small bouts of meals. Intermittent nausea and abdominal discomfort. 2 liter fluid restriction, he is having difficulty drinking an adequate amount of fluid, is encouraging increased fluids to help with BMs. He has sat on the toilet multiple times, but unable to have a BM. Jaswinder advised Savannah to only give the patient Miralax yesterday. nurse will see the patient again Tuesday. Please advise constipation in the mean time - appt 01/15. * Telephone Encounter - Natacha Talamantes OSA - 01/13/2024 11:47 AM EDT Reason for patient's call: pt's is returning call to PCP Caller was transferred to Waleska at the nurse line. * Telephone Encounter - Katina Dunn LPN - 01/11/2024 3:23 PM EDT Called HH, left detailed message on nurse vm with this information. * Telephone Encounter - Angelo Vazquez MD - 01/10/2024 4:32 PM EDT Nursing--please let Home health know ok to leave Oneill in until sees uro. (Switch oneill Monthly typically, but will defer to Dr Tran when he meets him) Seeing me next week. * Telephone Encounter - Rylee Hernandez LPN - 01/10/2024 3:53 PM EDT Admission/Start of Care Admission/Start of Care: Glory RN, Calling from: [facility] Report/Concerns of: decline in condition since discharge Symptoms: See below Vitals: T 97.6 P 69 RR 16 BP 122/64 SP O2 100% R/A Lung sounds - Clear Weight - N/A (discharge wt was 190 lbs) Blood sugar - Does not check Narrative: Glory is concerned that patient may have declined. He has cognitive delays. He also tested positive for depression, scored an 11 the Latrell Test. Family concerned that new med seroquel is causing constipation. Last moved his bowels yesterday. She states that patient seems obsessed that his bowels move. Patient has a oneill catheter. Scheduled to see Urology 01/23. They do not have any orders for oneill care. Asking for orders from PCP. Cath last changed on 01/06/24. Patient has his HD appt on 01/16/2024 Please fax orders to [phone] * Telephone Encounter - Dev Jarrell OSA - 01/10/2024 3:50 PM EDT Reason for patient's call: Glory from [facility] Caller was transferred to [facility] at the nurse line. documented in this encounter Plan of Treatment Upcoming Encounters Date Type Department Care Team (Late st Contact Info) Description 01/16/2024 9:00 AM EDT Office Visit Family Practice [facility] [address] [place] [address] Angelo Vazquez MD [address] [place] [address] 01/24/2024 1:30 PM EDT Office Visit Urology, [facility] [address] [place] [address] George Tran MD [address] [place] [address] 02/13/2024 2:30 PM EDT Cardiac Studies Cardiology, [facility] [place] [address] [facility] [address] [place] [address] 02/13/2024 3:30 PM EDT Office Visit Cardiology, [facility] [address] [facility] [place] [address] Esmer Alvarez PA-C [address] [place] [address] 03/13/2024 3:00 PM EDT Cardiac Studies Cardiac Studies, [facility] [address] [place] [address] Health Maintenance Due Date Last Done Comments [...] this encounter Medical Devices Implanted Type Area Purchase Price Analyst Device Identifier Shelf Expiration Date Model / Serial / Lot Sut Steel 6 M654g - [id number] Implanted:Qty: 4 on 05/30/2014 by Stanislav Hilliard MD at OR [facility] N/A: Chest JNJ : [employer] 02/07/2019 M654G / / [id number] Marker Coronary [facility] - [id number] Implanted:Qty: 2 on 05/30/2014 by Stanislav Hilliard MD at OR [facility] N/A: Aorta [employer] 03/10/2017 [facility] / / [id number] Lens Intraoc 20.5 - [id number] - [id number] Implanted:Qty: 1 on 02/18/2022 by Yandel Bowens MD at OR [facility] Left: Eye [employer] 11/07/2026 [id number] / [id number] / [id number] Lens Intraoc 21.5 - [id number] - [id number] Implanted:Qty: 1 on 03/04/2022 by Yandel Bowens MD at OR [facility] Right: Eye [employer] 10/08/2026 [id number] / [id number] / [id number] documented as of this encounter Advance Directives [...] Power of Attor jennifer? No Care Teams Cigar Binder Relationship Specialty Start Date End Date Angelo Vazquez MD [address] [place] [address] PCP - General Family Medicine 06/24/14 documented as of this encounter
--- OUTSIDE RECORDS SUMMARY | 2024-01-18 10:17 | External Medical Summary | Summary of Care ---
Author Name Unknown Organization [facility] Address [address] [place] [facility] [place] [address] Phone [phone] Care Team Providers Care Gear Nicker Name Role Phone Angelo Vazquez MD Primary Care Provider + Reason for Visit * Reason Onset Date Comments Home Health 01/09/2024 Encounter Details Date Type Department Care Team (Late st Contact Info) Description 01/09/2024 Telephone Family Practice [facility] [address] [place] [address] Angelo Vazquez MD [address] [place] [id number] Home Health Allergies Active Allergy Reactions Criticality Noted Date Comments Bee Venom 12/30/2015 Iodine Other (Please comment) 08/18/2011 Pt says not to use due to shellfish allergy Morphine Anaphylaxis High 08/18/2011 Penicillins Rash 08/18/2011 Shellfish Allergy Edema airway High 08/18/2011 documented as of this encounter (statuses as of 01/10/2024) Medications Medication Sig Dispensed Refills Start Date [...] as of this encounter (statuses as of 01/10/2024) Active Problems Problem Noted Date Diagnosed Date Medical home patient encounter 11/18/2023 Chronic systolic heart failure 09/27/2023 DM kidney disease 09/27/2023 Renal cyst, acquired, left 01/18/2023 Urge incontinence 01/18/2023 Well adult exam 12/03/2022 Overview: 12/01 TTE [facility] Dyspnea on exertion 11/29/2022 Spinal stenosis [...] Mild 2013 PAF (paroxysmal atrial fibrillation) 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 Prior: 5 stents-hx angina. [...] as of this encounter (statuses as of 01/10/2024) Resolved Problems Problem Noted Date Diagnosed Date [...] as of this encounter (statuses as of 01/10/2024) Immunizations Name Administration Dates Next Due COVID-19 mRNA, LNP-s, No Pre serve, 2-Dose Series ([employer] 06/11/2021,10/09/2020,09/19/2020 Covid-19, Mrna, Lnp-s, Pf, B ivalent, 30 Mcg, IM, 12 yrs and above ([employer] ([employer])) 05/03/2022 H1N1 2009 Influenza, IM 06/23/2009 Pneumococcal [...] Telephone Encounter - Amarilis Herrera LPN - 01/10/2024 11:09 AM EDT Called [facility] and spoke with Pham. Notified patient is scheduled with PCP for follow up on 01/16/24. No further questions or concerns at this time. * Telephone Encounter - Jenifer Chiu OSA - 01/09/2024 12:37 PM EDT ARIS Pt has an appt with PCP 01-15 * Telephone Encounter - Peg Castle LPN - 01/09/2024 9:26 AM EDT Admission/Start of Care Admission/Start of Care: Pham [place], Calling from: [facility] Referral ordered by: Jose Luis Referral received for: Senior Living, PT, and OT Planned start of care date:Yes, Date 01/10/2024 Start of care completed on: NA Report/Concerns of:NA They will call with any updates or additional concerns from the upcoming visit. Last Office Visit: 09/27/2023 Has patient been scheduled or seen in the office for a follow up visit: Needs contacted to schedulefollow up Advised that orders will be signed by Angelo Vazquez MD and to fax to the office for signature. Call back [facility] with advice or orders at [phone] documented in this encounter Plan of Treatment Upcoming Encounters Date Type Department Care Team (Late st Contact Info) Description 01/16/2024 9:00 AM EDT Office Visit Family Practice [facility] [address] [place] [address] Angelo Vazquez MD [address] [place] [address] 01/24/2024 1:30 PM EDT Office Visit Urology, [facility] [address] [place] [address] George Tran MD [address] [place] [address] 02/13/2024 2:30 PM EDT Cardiac Studies Cardiology, [facility] [address] [facility] [place] [address] [facility] [address] [place] [address] 02/13/2024 3:30 PM EDT Office Visit [facility], [facility] [place] [address] Esmer Alvarez PA-C [address] [place] [address] 03/13/2024 3:00 PM EDT Cardiac Studies Cardiac Studies, [facility] [address] [address] Health Maintenance Due Date Last Done Comments Colonoscopy 11/02/2022 11/02/2017, 02/09, 03/05/2014 COVID-19 Vaccine (2022- season) 2023 05/03/2022, 06/11/2021, [...] Completed 04/02/2020, 01/23/2016, 09/15/2014, Additional history exists GARDASIL-HPV IMMUNIZATION SERIES Aged Out No longer eligible based on patient's age to complete this topic Hepatitis B Aged Out No longer eligi ble based on patient's age to complete this topic MENINGOCOCCAL (MENACTRA/MENVEO) Aged Out No longer eligible based on patient's age to complete this topic documented as of this encounter Medical Devices Implanted Type Area Incident Response Engineer Device Identifier Shelf Expiration Date Model / Serial / Lot Sut Steel 6 M654g - [id number] Implanted:Qty: 4 on 05/30/2014 by Stanislav Hilliard MD at OR [facility] N/A: Chest JNJ : [employer] 02/07/2019 M654G / / [id number] Marker Coronary [facility] - [id number] Implanted:Qty: 2 on 05/30/2014 by Stanislav Hilliard MD at OR [facility] N/A: Aorta [employer] 03/10/2017 [facility] / / [id number] Lens Intraoc 20.5 - [id number] - [id number] Implanted:Qty: 1 on 02/18/2022 by Yandel Bowens MD at OR [facility] Left: Eye [employer] 11/07/2026 [id number] / [id number] / [id number] Lens Intraoc 21.5 - [id number] - [id number] Implanted:Qty: 1 on 03/04/2022 by Yandel Bowens MD at OR [facility] Right: Eye [employer] 10/08/2026 [id number] / [id number] / [id number] documented as of this encounter Advance Directives [...] Power of Attor jennifer? No Care Teams Gear Nicker Relationship Specialty Start Date End Date Angelo Vazquez MD [address] [place] [address] PCP - General Family Medicine 06/24/14 documented as of this encounter
--- OUTSIDE RECORDS SUMMARY | 2024-01-18 10:17 | External Medical Summary | Summary of Care ---
Author Name Unknown Organization [facility] Address [address] [place] [place] [address] Phone [phone] Care Team Providers Care Supervisor Composing Room Name Role Phone Angelo Vazquez MD Primary Care Provider + Reason for Visit * Reason Onset Date Comments Home Health 01/10/2024 Encounter Details Date Type Department Care Team (Late st Contact Info) Description 01/10/2024 Telephone Family Practice [facility] [address] [place] [address] Angelo Vazquez MD [address] [place] [address] Home Health Allergies Active Allergy Reactions Criticality [...] Tablet (Lipitor)Indication s:Paroxysmal atrial fibrillation (HCC),CAD in [place] artery,S/P CABG x 3 TAKE ONE TABLET BY MOUTH DAILY 90 Tablet 3 01/20/2023 01/25/2024 Active metFORMIN HCl 500 MG Oral Tablet (Glucophage)Indicat ions:Type 2 diabetes mellitus with hemoglobin A1c goal of less than 8.0% (HCC) TAKE ONE TABLET BY MOUTH DAILY 90 Tablet 3 04/21/2023 04/20/2024 Active Nitroglycerin 0.4 MG Sublingual Tablet Sublingual (Nitrostat)Indicati ons:CAD in [place] artery DISSOLVE 1 TABLET UNDER THE TONGUE [...] Well adult exam 12/03/2022 Overview: 12/01 T[facility] Dyspnea on exertion 11/29/2022 Spinal stenosis of [...] 2013 PAF (paroxysmal atrial fibrillation) 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 Prior: 5 stents-hx angina. Drug eluting, & [...] mRNA, LNP-s, No Pre serve, 2-Dose Series (mobiDEOS) 06/11/2021,10/09/2020,09/19/2020 Covid-19, Mrna, Lnp-s, Pf, B ivalent, 30 Mcg, IM, 12 yrs and above (mobiDEOS) 05/03/2022 H1N1 2009 Influenza, IM 06/23/2009 Pneumococcal [...] encounter Miscellaneous Notes * Telephone Encounter - Natacha Talamantes OSA - 01/13/2024 11:47 AM EDT Reason for patient's call: pt's is returning call to PCP Caller was transferred to [facility] at the nurse line. * Telephone Encounter - Katina Dunn LPN - 01/11/2024 3:23 PM EDT Called , left detailed message on nurse vm with [...] Admission/Start of Care: Glory RN, Calling from: [facility] Report/Concerns of: decline in condition since discharge [...] appt on 01/16/2024 Please fax orders to [phone] * Telephone Encounter - Dev Jarrell OSA - 01/10/2024 3:50 PM EDT Reason for patient's call: Glory from [facility] Caller was transferred to [facility] at the nurse line. documented in this encounter Plan of Treatment Upcoming Encounters Date Type Department Care Team (Late st Contact Info) Description 01/16/2024 9:00 AM EDT Office Visit Family Practice [facility] [address] [address] [address] Angelo Vazquez MD [address] [address] [address] 01/24/2024 1:30 PM EDT Office Visit Urology, [facility] [address] [address] George Tran MD [address] [place] [address] 02/13/2024 2:30 PM EDT Cardiac Studies Cardiology, [facility] [address] [facility] [address] [facility] [address] [facility] [place] [address] 02/13/2024 3:30 PM EDT Office Visit Cardiology, [facility] [address] [facility] [place] [address] Esmer Alvarez PA-C [address] [facility] [place] [address] 03/13/2024 3:00 PM EDT Cardiac Studies Cardiac Studies, [facility] [address] [facility] [address] Health Maintenance Due Date Last Done Comments [...] this encounter Medical Devices Implanted Type Area Retail Associate Device Identifier Shelf Expiration Date Model / Serial / Lot Sut Steel 6 M654g - [id number] Implanted:Qty: 4 on 05/30/2014 by Stanislav Hilliard MD [place] [facility] [place]/A: Chest JNJ : [employer] 02/07/2019 M654G / / [id number] Marker Coronary Am-Sd - [id number] Implanted:Qty: 2 on 05/30/2014 by Stanislav Hilliard MD [place] [facility] N/A: Aorta [employer] 03/10/2017 [employer]-SD / / [id number] Lens Intraoc 20.5 - [id number] - [id number] Implanted:Qty: 1 on 02/18/2022 by Yandel Bowens MD at OR [facility] Left: Eye BAUSCH & LOMB 11/07/2026 [id number] / [id number] / [id number] Lens Intraoc 21.5 - [id number] - [id number] Implanted:Qty: 1 on 03/04/2022 by Yandel Bowens MD at OR [facility] Right: Eye BAUSCH & LOMB 10/08/2026 [id number] / [id number] / [id number] documented as of this encounter Advance Directives [...] Power of Attor jennifer? No Care Teams Supervisor Composing Room Relationship Specialty Start Date End Date Angelo Vazquez MD [address] [address] PCP - General Family Medicine 06/24/14 documented as of this encounter
--- OUTSIDE RECORDS SUMMARY | 2024-01-18 10:17 | External Medical Summary | Summary of Care ---
Author Name Unknown Organization [facility] Address [address] [place] [address] Phone [phone] Care Team Providers Care Line Worker Name Role Phone Angelo Vazquez MD Primary Care Provider + Reason for Visit * Reason Onset Date Comments Home Health 01/10/2024 Advice 01/10/2024 Encounter Details Date Type Department Care Team (Late st Contact Info) Description 01/10/2024 Telephone Family Practice [facility] [address] [place] [address] Angelo Vazquez MD [address] [place] [address] Home Health; Advice Allergies Active Allergy Reactions [...] Tablet (Lipitor)Indication s:Paroxysmal atrial fibrillation (HCC),CAD in [place] artery,S/P CABG x 3 TAKE ONE TABLET BY MOUTH DAILY 90 Tablet 3 01/20/2023 01/25/2024 Active metFORMIN HCl 500 MG Oral Tablet (Glucophage)Indicat ions:Type 2 diabetes mellitus with hemoglobin A1c goal of less than 8.0% (HCC) TAKE ONE TABLET BY MOUTH DAILY 90 Tablet 3 04/21/2023 04/20/2024 Active Nitroglycerin 0.4 MG Sublingual Tablet Sublingual (Nitrostat)Indicati ons:CAD in [place] artery DISSOLVE 1 TABLET UNDER THE [...] Well adult exam 12/03/2022 Overview: 12/01 TTE [facility] Dyspnea on exertion 11/29/2022 Spinal [...] Mild 2013 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 0 07/14/2012 Overview: ICD-10 update of inactive term Dysthymia 11/30/2011 Coronary artery disease invo lving [place] coronary artery of [place] heart without angina pectoris Overview: 05/30/14 [...] mRNA, LNP-s, No Pre serve, 2-Dose Series ([employer]) 06/11/2021,10/09/2020,09/19/2020 Covid-19, Mrna, Lnp-s, Pf, B ivalent, [...] encounter Miscellaneous Notes * Telephone Encounter - Daija Arroyo LPN - 01/13/2024 2:39 PM EDT Sent my g * Telephone Encounter - Angelo Vazquez MD - 01/13/2024 12:43 PM EDT Can do fleet enema, 4 pills dulcolax 5mg together once by mouth, , Miralax twice a day until BM. * Telephone Encounter - Waleska Zimmerman LPN - 01/13/2024 11:50 AM EDT Patient's , Savannah calling back. Jaswinder nurse saw the patient yesterday. Patient hasn't [...] Admission/Start of Care Admission/Start of Care: Glory JEFFERSON, Calling from: [employer] Report/Concerns of: decline in [...] appt on 01/16/2024 Please fax orders to [phone] * Telephone Encounter - Dev Jarrell OSA - 01/10/2024 3:50 PM EDT Reason for patient's call: Glory from [facility] Caller was transferred to [facility] at the nurse line. documented in this encounter Plan of Treatment Upcoming Encounters Date Type Department Care Team (Late st Contact Info) Description 01/16/2024 9:00 AM EDT Office Visit Family Practice [facility] [address] [address] Angelo Vazquez MD [address] [place] [address] 01/24/2024 1:30 PM EDT Office Visit Urology, [facility] [address] [place] [address] George Tran MD [address] [place] [address] 02/13/2024 2:30 PM EDT Cardiac Studies Cardiology, [facility] [address] [place] [address] [facility] [address] [place] [address] 02/13/2024 3:30 PM EDT Office Visit Cardiology, [facility] [address] [facility] [place] [address] Esmer Alvarez PA-C [address] [place] [address] 03/13/2024 3:00 PM EDT Cardiac Studies Cardiac Studies, [facility] [address] [facility] [place] [address] Health Maintenance Due Date Last Done Comments [...] this encounter Medical Devices Implanted Type Area Maxillofacial Pathology Device Identifier Shelf Expiration Date Model / Serial / Lot Sut Faheem 6 M654g - [id number] Implanted:Qty: 4 on 05/30/2014 by Stanislav Hilliard MD at [place] [facility] N/A: Chest JNJ : [employer] 02/07/2019 M654G / / [id number] Marker Coronary [facility]-Sd - [id number] Implanted:Qty: 2 on 05/30/2014 by Stanislav Hilliard MD at [place] [facility] N/A: Aorta [employer] 03/10/2017 [facility] / / [id number] Lens Intraoc 20.5 - [id number] - [id number] Implanted:Qty: 1 on 02/18/2022 by Yandel Bowens MD at OR [facility] Left: Eye BAUSCH & LOMB 11/07/2026 [id number] / [id number] / [id number] Lens Intraoc 21.5 - [id number] - [id number] Implanted:Qty: 1 on 03/04/2022 by Yandel Bowens MD at OR [facility] Right: Eye BAUSCH & LOMB 10/08/2026 [id number] / [id number] / [id number] documented as of this encounter Advance Directives [...] Power of Attor jennifer? No Care Teams Line Worker Relationship Specialty Start Date End Date Angelo Vazquez MD [address] [address] PCP - General Family Medicine 06/24/14 documented as of this encounter
--- OUTSIDE RECORDS SUMMARY | 2024-01-18 10:17 | External Medical Summary | Summary of Care ---
Author Name Unknown Organization [facility] Address [address] [place] [address] Phone [phone] Care Team Providers Care Wildlife Rehabilitator Name Role Phone Angelo Vazquez MD Primary Care Provider + Reason for Visit * Reason Onset Date Comments Home Health 01/10/2024 Encounter Details Date Type Department Care Team (Late st Contact Info) Description 01/10/2024 Telephone Family Practice [facility] [address] [place] [address] Angelo Vazquez MD [address] [place] [address] Home Health Allergies Active Allergy Reactions Criticality Noted Date Comments Bee Venom 12/30/2015 Iodine Other (Please comment) 08/18/2011 Pt says not to use due to shellfish allergy Morphine Anaphylaxis High 08/18/2011 Penicillins Rash 08/18/2011 Shellfish Allergy Edema airway High 08/18/2011 documented as of this encounter (statuses as of 01/11/2024) Medications Medication Sig Dispensed Refills Start Date [...] Tablet (Lipitor)Indication s:Paroxysmal atrial fibrillation (HCC),CAD in [place] artery,S/P CABG x 3 TAKE ONE TABLET BY MOUTH DAILY 90 Tablet 3 01/20/2023 01/25/2024 Active metFORMIN HCl 500 MG Oral Tablet (Glucophage)Indicat ions:Type 2 diabetes mellitus with hemoglobin A1c goal of less than 8.0% (HCC) TAKE ONE TABLET BY MOUTH DAILY 90 Tablet 3 04/21/2023 04/20/2024 Active Nitroglycerin 0.4 MG Sublingual Tablet Sublingual (Nitrostat)Indicati ons:CAD in [place] artery DISSOLVE 1 TABLET UNDER THE TONGUE [...] as of this encounter (statuses as of 01/11/2024) Active Problems Problem Noted Date Diagnosed Date Medical home patient encounter 11/18/2023 Chronic systolic heart failure 09/27/2023 DM kidney disease 09/27/2023 Renal cyst, acquired, left 01/18/2023 Urge incontinence 01/18/2023 Well adult exam 12/03/2022 Overview: 12/01 TTE [facility] Dyspnea on exertion 11/29/2022 Spinal [...] Mild 2013 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 Prior: 5 stents-hx angina. Drug eluting, & bare metal. Most recent 11/18 1986 LCAD PTCA 12.04 LAD & mid circ drug eluting stents 8.08-distal RCA non drug eluting stent 11/13/10 LAD Ion drug eluting stent 01/14/11 Cardiolite EF55% no ischemia Gastroesophageal reflux disease Overview: Particles are regurgitant, some acid reflux, not much coughing Dyslipidemia documented as of this encounter (statuses as of 01/11/2024) Resolved Problems Problem Noted Date Diagnosed Date [...] as of this encounter (statuses as of 01/11/2024) Immunizations Name Administration Dates Next Due COVID-19 mRNA, LNP-s, No Pre serve, 2-Dose Series (AntCor) 06/11/2021,10/09/2020,09/19/2020 Covid-19, Mrna, Lnp-s, Pf, B ivalent, 30 Mcg, IM, 12 yrs and above (AntCor) 05/03/2022 H1N1 2009 Influenza, IM 06/23/2009 Pneumococcal [...] encounter Miscellaneous Notes * Telephone Encounter - Katina Dunn LPN [...] appt on 01/16/2024 Please fax orders to [phone] * Telephone Encounter - Dev Jarrell OSA - 01/10/2024 3:50 PM EDT Reason for patient's call: Glory from [facility] Caller was transferred to [facility] at the nurse line. documented in this encounter Plan of Treatment Upcoming Encounters Date Type Department Care Team (Late st Contact Info) Description 01/16/2024 9:00 AM EDT Office Visit Family Practice [facility] [address] [address] Angelo Vazquez MD [address] [place] [address] 01/24/2024 1:30 PM EDT Office Visit Urology, [facility] [address] [address] [address] George Tran MD [address] [place] [address] 02/13/2024 2:30 PM EDT Cardiac Studies Cardiology, [facility] [address] [place] [address] [facility] [address] [facility] [place] [address] 02/13/2024 3:30 PM EDT Office Visit Cardiology, [facility] [address] [place] [address] Esmer Alvarez PA-C [address] [place] [address] 03/13/2024 3:00 PM EDT Cardiac Studies Cardiac Studies, [facility] [address] [facility] [place] [address] Health Maintenance Due Date Last Done Comments [...] this encounter Medical Devices Implanted Type Area Fisher Terrapin Device Identifier Shelf Expiration Date Model / Serial / Lot Sut Steel 6 M654g - [id number] Implanted:Qty: 4 on 05/30/2014 by Stanislav Hilliard MD [place] [facility] [place]/A: Chest JNJ : [employer] 02/07/2019 M654G / / [id number] Marker Coronary Am-Sd - [id number] Implanted:Qty: 2 on 05/30/2014 by Stanislav Hilliard MD [place] [facility] N/A: Aorta [employer] 03/10/2017 [facility] / / [id number] Lens Intraoc 20.5 - [id number] - [id number] Implanted:Qty: 1 on 02/18/2022 by Yandel Bowens MD at OR [facility] Left: Eye BAUSCH & LOMB 11/07/2026 [id number] / [id number] / [id number] Lens Intraoc 21.5 - [id number] - [id number] Implanted:Qty: 1 on 03/04/2022 by Yandel Bowens MD at OR [facility] Right: Eye BAUSCH & LOMB 10/08/2026 [id number] / [id number] / [id number] documented as of this encounter Advance Directives [...] Power of Attor jennifer? No Care Teams Wildlife Rehabilitator Relationship Specialty Start Date End Date Angelo Vazquez MD [address] [facility] [place] [address] PCP - General Family Medicine 06/24/14 documented as of this encounter
--- OUTSIDE RECORDS SUMMARY | 2024-01-18 10:17 | External Medical Summary | Summary of Care ---
Author Name Unknown Organization [facility] Address [address] [place] [address] Phone [phone] Care Team Providers Care Auto Tire Recapper Name Role Phone Angelo Vazquez MD Primary Care Provider + Reason for Visit * Reason Onset Date Comments Home Health 01/10/2024 Advice 01/10/2024 Encounter Details Date Type Department Care Team (Late st Contact Info) Description 01/10/2024 Telephone Family Practice [facility] [address] [place] [address] Angelo Vazquez MD [address] [place] [address] Home Health; Advice Allergies Active Allergy Reactions [...] Tablet (Lipitor)Indication s:Paroxysmal atrial fibrillation (HCC),CAD in [place] artery,S/P CABG x 3 TAKE ONE TABLET BY MOUTH DAILY 90 Tablet 3 01/20/2023 01/25/2024 Active metFORMIN HCl 500 MG Oral Tablet (Glucophage)Indicat ions:Type 2 diabetes mellitus with hemoglobin A1c goal of less than 8.0% (HCC) TAKE ONE TABLET BY MOUTH DAILY 90 Tablet 3 04/21/2023 04/20/2024 Active Nitroglycerin 0.4 MG Sublingual Tablet Sublingual (Nitrostat)Indicati ons:CAD in [place] artery DISSOLVE 1 TABLET UNDER THE TONGUE [...] exam 12/03/2022 Overview: 12/[address] 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 Prior: 5 stents-hx angina. Drug eluting, & [...] mRNA, LNP-s, No Pre serve, 2-Dose Series ([employer]) 06/11/2021,10/09/2020,09/19/2020 Covid-19, Mrna, Lnp-s, Pf, B ivalent, [...] Encounter - Waleska Zimmerman LPN - 01/13/2024 3:17 PM EDT Patient's aware and verbalized understanding, will comply * Telephone Encounter - Daija Arroyo LPN - 01/13/2024 2:39 PM EDT Sent my g * Telephone Encounter - Angelo Vazquez MD - 01/13/2024 12:43 PM EDT Can do fleet enema, 4 pills dulcolax 5mg together once by mouth, , Miralax twice a day until BM. * Telephone Encounter - Waleska Zimmerman LPN - 01/13/2024 11:50 AM EDT Patient's , [place] calling back. LUCI [facility] nurse saw the patient yesterday. Patient hasn't [...] Admission/Start of Care: Glory RN, Calling from: [place] Report/Concerns of: decline in condition since discharge [...] appt on 01/16/2024 Please fax orders to [phone] * Telephone Encounter - Dev Jarrell OSA - 01/10/2024 3:50 PM EDT Reason for patient's call: Glory from [facility] Caller was transferred to [facility] at the nurse line. documented in this encounter Plan of Treatment Upcoming Encounters Date Type Department Care Team (Late st Contact Info) Description 01/16/2024 9:00 AM EDT Office Visit Family Practice [facility] [address] [address] Angelo Vazquez MD [address] [address] 01/24/2024 1:30 PM EDT Office Visit Urology, [facility] [address] [address] George Tran MD [address] [address] 02/13/2024 2:30 PM EDT Cardiac Studies Cardiology, [facility] [address] [facility] [place] [address] Re[facility] [address] [facility] [place] [address] 02/13/2024 3:30 PM EDT Office Visit Cardiology, [facility] [address] [facility] [place] [address] Esmer Alvarez PA-C [address] [place] [id number] 03/13/2024 3:00 PM EDT Cardiac Studies Cardiac Studies, [facility] [address] [facility] [place] [address] Health Maintenance Due Date Last Done Comments [...] this encounter Medical Devices Implanted Type Area Senior Net Engineer Device Identifier Shelf Expiration Date Model / Serial / Lot Sut Steel 6 M654g - [id number] Implanted:Qty: 4 on 05/30/2014 by Stanislav Hilliard MD [place] [facility] [place]/A: Chest JNJ : [employer] 02/07/2019 M654G / / [id number] Marker Coronary Am-Sd - [id number] Implanted:Qty: 2 on 05/30/2014 by Stanislav Hilliard MD at [place] [facility] N/A: Aorta [employer] 03/10/2017 AM-SD / / [id number] Lens Intraoc 20.5 - [id number] - [id number] Implanted:Qty: 1 on 02/18/2022 by Yandel Bowens MD at OR [facility] Left: Eye BAUSCH [employer] LOMB 11/07/2026 [id number] / [id number] / [id number] Lens Intraoc 21.5 - [id number] - [id number] Implanted:Qty: 1 on 03/04/2022 by Yandel Bowens MD at OR [facility] Right: Eye BAUSCH & LOMB 10/08/2026 [id number] / [id number] / [id number] documented as of this encounter Advance Directives [...] Power of Attor jennifer? No Care Teams Auto Tire Recapper Relationship Specialty Start Date End Date Angelo Vazquez MD [address] [address] [address] PCP - General Family Medicine 06/24/14 documented as of this encounter
--- OUTSIDE RECORDS SUMMARY | 2024-01-18 10:17 | External Medical Summary | Summary of Care ---
Author Name Unknown Organization [facility] Address [address] [place] [address] Phone [phone] Care Team Providers Care Lens Grinder Name Role Phone Angelo Vazquez MD Primary Care Provider + Reason for Visit * Reason Onset Date Comments Home Health 01/10/2024 Advice 01/10/2024 Encounter Details Date Type Department Care Team (Late st Contact Info) Description 01/10/2024 Telephone Family Practice [facility] [address] [place] [address] Angelo Vazquez MD [address] [place] [address] Home Health; Advice Allergies Active Allergy Reactions [...] Tablet (Lipitor)Indication s:Paroxysmal atrial fibrillation (HCC),CAD in [place] artery,S/P CABG x 3 TAKE ONE TABLET BY MOUTH DAILY 90 Tablet 3 01/20/2023 01/25/2024 Active metFORMIN HCl 500 MG Oral Tablet (Glucophage)Indicat ions:Type 2 diabetes mellitus with hemoglobin A1c goal of less than 8.0% (HCC) TAKE ONE TABLET BY MOUTH DAILY 90 Tablet 3 04/21/2023 04/20/2024 Active Nitroglycerin 0.4 MG Sublingual Tablet Sublingual (Nitrostat)Indicati ons:CAD in [place] artery DISSOLVE 1 TABLET UNDER THE TONGUE [...] 2013 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 Prior: 5 stents-hx angina. Drug eluting, & [...] mRNA, LNP-s, No Pre serve, 2-Dose Series ([employer]) 06/11/2021,10/09/2020,09/19/2020 Covid-19, Mrna, Lnp-s, Pf, B ivalent, [...] appt on 01/16/2024 Please fax orders to [phone] * Telephone Encounter - Dev Jarrell OSA - 01/10/2024 3:50 PM EDT Reason for patient's call: Glory from [employer] [facility] was transferred to [facility] at the nurse line. documented in this encounter Plan of Treatment Upcoming Encounters Date Type Department Care Team (Late st Contact Info) Description 01/16/2024 9:00 AM EDT Office Visit Family Practice [facility] [address] [address] Angelo Vazquez MD [address] [place] [address] 01/24/2024 1:30 PM EDT Office Visit Urology, [facility] [address] [place] [address] George Tran MD [address] [place] [address] 02/13/2024 2:30 PM EDT Cardiac Studies Cardiology, [facility] [address] [place] [address] [facility] [address] [place] [address] 02/13/2024 3:30 PM EDT Office Visit Cardiology, [facility] [address] [place] [address] Esmer Alvarez PA-C [address] [place] [address] [place] [address] 03/13/2024 3:00 PM EDT Cardiac Studies Cardiac Studies, [facility] [address] [facility] [place] [address] Health Maintenance Due Date Last Done Comments [...] this encounter Medical Devices Implanted Type Area Technical Operations Vice President Device Identifier Shelf Expiration Date Model / Serial / Lot Sut Steel 6 M654g - [id number] Implanted:Qty: 4 on 05/30/2014 by Stanislav Hilliard MD at OR [facility] N/A: Chest JNJ : [employer] 02/07/2019 [id number] / / [id number] Marker Coronary [facility] - [id number] Implanted:Qty: 2 on 05/30/2014 by Stanislav Hilliard MD at OR [facility] N/A: Aorta [employer] 03/10/2017 [facility] / / [id number] Lens Intraoc 20.5 - [id number] - [id number] Implanted:Qty: 1 on 02/18/2022 by Yandel Bowens MD at OR [facility] Left: Eye [employer] 11/07/2026 [id number] / [id number] / [id number] Lens Intraoc 21.5 - [id number] - [id number] Implanted:Qty: 1 on 03/04/2022 by Yandel Bowens MD at OR [facility] Right: Eye [employer] 10/08/2026 [id number] / [id number] / [id number] documented as of this encounter Advance Directives [...] Power of Attor jennifer? No Care Teams Lens Grinder Relationship Specialty Start Date End Date Angelo Vazquez MD [address] [place] [address] PCP - General Family Medicine 06/24/14 documented as of this encounter
--- OUTSIDE RECORDS SUMMARY | 2024-01-18 10:18 | External Medical Summary ---
Author Name Unknown Address Unknown Organization K09:[facility] [address] [place] [address] Laboratory Report Ordering Provider Test Date Status EVANS LARSON 12/28/2023 06:42:07 Final Observation Date Value Abnormality Reference (Units ) Status Color of Urine by Auto 12/28/2023 06:42:07 Yellow Light Yellow, Yellow, Dark Yellow Final Clarity, Urine 12/28/2023 06:42:07 Clear Clear Final Glucose [Mass/volume] in Urine by Automated test strip 12/28/2023 06:42:07 Negative Negative (mg/dL) Final Bilirubin.total [Presence] in Urine by Automated test strip 12/28/2023 06:42:07 Negative Negative Final Ketones [Mass/volume] in Urine by Automated test strip 12/28/2023 06:42:07 Negative Negative (mg/dL) Final Specific gravity, Urine 12/28/2023 06:42:07 1.020 1.003-1.030 Final Hemoglobin [Presence] in Urine by Automated test strip 12/28/2023 06:42:07 Moderate Abnormal Negative Final pH, Urine 12/28/2023 06:42:07 7.5 5.0-7.5 (Units) Final Protein [Mass/volume] in Urine by Automated test strip 12/28/2023 06:42:07 30 Abnormal Negative (mg/dL) Final Urobilinogen [Mass/volume] in Urine by Automated test strip 12/28/2023 06:42:07 0.2 0.2, 1.0 (mg/dL) Final Nitrite [Presence] in Urine by Automated test strip 12/28/2023 06:42:07 Negative Negative Final Leukocyte esterase [Presence] in Urine by Automated test strip 12/28/2023 06:42:07 Negative Negative Final RBC, Urine 12/28/2023 06:42:07 30-49 Abnormal 0-2 (/HPF) Final WBC, Urine 12/28/2023 06:42:07 0-2 0-2 (/HPF) Final Bacteria [#/area] in Urine sediment by Microscopy high power field 12/28/2023 06:42:07 0-25 0-25 (/HPF) Final Hyaline casts, Urine 12/28/2023 06:42:07 1-4 Abnormal None (/LPF) Final CULTURE, URINE - [facility] 12/28/2023 06:42:07 Final Culture not indicated by uri nalysis results\X09\ Performing Location [facility] [address] [place] [address]
--- OUTSIDE RECORDS SUMMARY | 2024-01-18 10:18 | External Medical Summary ---
Author Name Unknown Address Unknown Organization [id number]:LAB[facility]ATORY [facility] [address] [place] [address] Laboratory Report Ordering Provider Test Date Status EVANS LARSON 01/07/2024 05:59:00 Final Observation Date Value Abnormality Reference (Units ) Status WBC, Total 01/07/2024 05:59:00 3.55 Below low normal 4. 00-10.80 (K/uL) Final RBC 01/07/2024 05:59:00 2.80 4.50-5.25 (M/uL) Final Hemoglobin 01/07/2024 05:59:00 8.8 Below low normal 14 .0-16.8 (g/dL) Final HCT 01/07/2024 05:59:00 27.9 Below low normal 40. 0-48.4 (%) Final MCV 01/07/2024 05:59:00 99.6 82.0-99.5 (fL) Final MCH 01/07/2024 05:59:00 31.4 27.0-34.0 (pg) Final MCHC 01/07/2024 05:59:00 31.5 32.0-36.0 (g/dL) Final RDW 01/07/2024 05:59:00 15.9 11.5-15.5 (%) Final Platelets 01/07/2024 05:59:00 114 Below low normal 140 -400 (K/uL) Final MPV 01/07/2024 05:59:00 10.0 6.6-11.1 ( fL) Final Performing Location LABORATORY [facility] [address] [place] [address]
--- OUTSIDE RECORDS SUMMARY | 2024-01-18 10:18 | External Medical Summary ---
Author Name Unknown Address Unknown Organization [id number] [facility] [address] [place] [address] Laboratory Report Ordering Provider Test Date Status EVANS LARSON 01/07/2024 05:59:00 Final Observation Date Value Abnormality Reference (Units ) Status BUN 01/07/2024 05:59:00 19 6-20 (mg/dL) Final Creatinine 01/07/2024 05:59:00 1.2 0.6-1.2 (mg/dL) Final Glomerular filtration rate/1.73 sq M.predicted [Volume Rate/Area] in Serum, Plasma or Blood by Creatinine-based formula (CKD-EPI) 01/07/2024 05:59:00 57 Below low normal >=60 (mL/min) Final eGFR is calculated based on the CKD-EPI 2020 equation Sodium 01/07/2024 05:59:00 136 135-146 (m mol/L) Final Potassium 01/07/2024 05:59:00 3.2 Below low normal 3.5 -5.1 (mmol/L) Final Cl 01/07/2024 05:59:00 98 98-107 (mm ol/L) Final CO2 01/07/2024 05:59:00 27 22-32 (mmo l/L) Final Anion gap 01/07/2024 05:59:00 11 7-15 (mmol /L) Final Glucose 01/07/2024 05:59:00 95 70-120 (mg /dL) Final Calcium 01/07/2024 05:59:00 8.6 8.4-10.2 ( mg/dL) Final Performing Location LABORATORY [facility] [address] [place] [address]
--- OUTSIDE RECORDS SUMMARY | 2024-01-18 10:18 | External Medical Summary ---
Author Name Unknown Address Unknown Organization K09:[facility] [place] [address] Laboratory Report Ordering Provider Test Date Status EVANS LARSON 12/29/2023 06:02:21 Final Observation Date Value Abnormality Reference (Units ) Status BUN 12/29/2023 06:02:21 24 Above high normal 6-20 (mg/dL) Final Creatinine 12/29/2023 06:02:21 1.1 0.6-1.2 (mg/dL) Final Glomerular filtration rate/1.73 sq M.predicted [Volume Rate/Area] in Serum, Plasma or Blood by Creatinine-based formula (CKD-EPI) 12/29/2023 06:02:21 63 >=60 (mL/min) Final eGFR is calculated based on the CKD-EPI 2020 equation Sodium 12/29/2023 06:02:21 140 135-146 (m mol/L) Final Potassium 12/29/2023 06:02:21 3.6 3.5-5.1 (m mol/L) Final Cl 12/29/2023 06:02:21 103 98-107 (mm ol/L) Final CO2 12/29/2023 06:02:21 26 22-32 (mmo l/L) Final Anion gap 12/29/2023 06:02:21 11 7-15 (mmol /L) Final Glucose 12/29/2023 06:02:21 88 70-120 (mg /dL) Final Calcium 12/29/2023 06:02:21 8.2 Below low normal 8.4 -10.2 (mg/dL) Final Performing Location [facility] [place] [address]
--- OUTSIDE RECORDS SUMMARY | 2024-01-18 10:18 | External Medical Summary ---
Author Name Unknown Address Unknown Organization K09:[facility] [place] [address] Laboratory Report Ordering Provider Test Date Status EVANS LARSON 12/26/2023 13:38:33 Final Observation Date Value Abnormality Reference (Units ) Status WBC, Total 12/26/2023 13:38:33 6.08 4.00-10.8 0 (K/uL) Final RBC 12/26/2023 13:38:33 3.20 4.50-5.25 (M/uL) Final Hemoglobin 12/26/2023 13:38:33 10.2 Below low normal 14 .0-16.8 (g/dL) Final HCT 12/26/2023 13:38:33 34.2 Below low normal 40. 0-48.4 (%) Final MCV 12/26/2023 13:38:33 106.9 82.0-99.5 (fL) Final MCH 12/26/2023 13:38:33 31.9 27.0-34.0 (pg) Final MCHC 12/26/2023 13:38:33 29.8 32.0-36.0 (g/dL) Final RDW 12/26/2023 13:38:33 16.8 11.5-15.5 (%) Final Platelets 12/26/2023 13:38:33 91 Below low normal 140 -400 (K/uL) Final MPV 12/26/2023 13:38:33 10.4 6.6-11.1 ( fL) Final Performing Location [facility] [place] [address]
--- OUTSIDE RECORDS SUMMARY | 2024-01-18 10:18 | External Medical Summary ---
Author Name Unknown Address Unknown Organization [facility] [address] - [address] [place] [address] Laboratory Report Ordering Provider Test Date Status EVANS LARSON 12/24/2023 06:04:13 Final Observation Date Value Abnormality Reference (Units ) Status WBC, Total 12/24/2023 06:04:13 5.69 4.00-10.8 0 (K/uL) Final RBC 12/24/2023 06:04:13 3.25 4.50-5.25 (M/uL) Final Hemoglobin 12/24/2023 06:04:13 10.4 Below low normal 14 .0-16.8 (g/dL) Final HCT 12/24/2023 06:04:13 34.1 Below low normal 40. 0-48.4 (%) Final MCV 12/24/2023 06:04:13 104.9 82.0-99.5 (fL) Final MCH 12/24/2023 06:04:13 32.0 27.0-34.0 (pg) Final MCHC 12/24/2023 06:04:13 30.5 32.0-36.0 (g/dL) Final RDW 12/24/2023 06:04:13 16.9 11.5-15.5 (%) Final Platelets 12/24/2023 06:04:13 92 Below low normal 140 -400 (K/uL) Final MPV 12/24/2023 06:04:13 10.4 6.6-11.1 ( fL) Final Performing Location LABORATORY [facility] [address] [place] [address]
--- OUTSIDE RECORDS SUMMARY | 2024-01-18 10:18 | External Medical Summary ---
Author Name Unknown Address Unknown Organization [id number] [address] - [address] [place] [address] Laboratory Report Ordering Provider Test Date Status EVANS LARSON 12/31/2023 07:14:31 Final Observation Date Value Abnormality Reference (Units ) Status WBC, Total 12/31/2023 07:14:31 4.50 4.00-10.8 0 (K/uL) Final RBC 12/31/2023 07:14:31 2.88 4.50-5.25 (M/uL) Final Hemoglobin 12/31/2023 07:14:31 9.2 Below low normal 14 .0-16.8 (g/dL) Final HCT 12/31/2023 07:14:31 29.2 Below low normal 40. 0-48.4 (%) Final MCV 12/31/2023 07:14:31 101.4 82.0-99.5 (fL) Final MCH 12/31/2023 07:14:31 31.9 27.0-34.0 (pg) Final MCHC 12/31/2023 07:14:31 31.5 32.0-36.0 (g/dL) Final RDW 12/31/2023 07:14:31 15.9 11.5-15.5 (%) Final Platelets 12/31/2023 07:14:31 96 Below low normal 140 -400 (K/uL) Final MPV 12/31/2023 07:14:31 10.6 6.6-11.1 ( fL) Final Performing Location LABORATORY [facility] [address] [place] [address]
--- OUTSIDE RECORDS SUMMARY | 2024-01-18 10:18 | External Medical Summary ---
Author Name Unknown Address Unknown Organization K09:[facility] [place] [address] Laboratory Report Ordering Provider Test Date Status EVANS LARSON 12/27/2023 06:00:50 Final Observation Date Value Abnormality Reference (Units ) Status BUN 12/27/2023 06:00:50 29 Above high normal 6-20 (mg/dL) Final Creatinine 12/27/2023 06:00:50 1.1 0.6-1.2 (mg/dL) Final Glomerular filtration rate/1.73 sq M.predicted [Volume Rate/Area] in Serum, Plasma or Blood by Creatinine-based formula (CKD-EPI) 12/27/2023 06:00:50 63 >=60 (mL/min) Final eGFR is calculated based on the CKD-EPI 2020 equation Sodium 12/27/2023 06:00:50 142 135-146 (m mol/L) Final Potassium 12/27/2023 06:00:50 3.9 3.5-5.1 (m mol/L) Final Cl 12/27/2023 06:00:50 102 98-107 (mm ol/L) Final CO2 12/27/2023 06:00:50 25 22-32 (mmo l/L) Final Anion gap 12/27/2023 06:00:50 15 7-15 (mmol /L) Final Glucose 12/27/2023 06:00:50 102 70-120 (mg /dL) Final Calcium 12/27/2023 06:00:50 8.6 8.4-10.2 ( mg/dL) Final Performing Location [facility] [place] [address]
--- OUTSIDE RECORDS SUMMARY | 2024-01-18 10:18 | External Medical Summary | Summary of Care ---
Author Name Unknown Organization [facility] Address [address] [place] [address] Phone [phone] Care Team Providers Care Human Resources Safety Manager Name Role Phone Angelo Vazquez MD Primary Care Provider + Reason for Visit * Reason Onset Date Comments Advice 01/06/2024 Encounter Details Date Type Department Care Team (Late st Contact Info) Description 01/06/2024 Telephone Family Practice [facility] [address] [place] [address] Angelo Vazquez MD [address] [place] [address] Advice Allergies Active Allergy Reactions Criticality Noted Date Comments Bee Venom 12/30/2015 Iodine Other (Please comment) 08/18/2011 Pt says not to use due to shellfish allergy Morphine Anaphylaxis High 08/18/2011 Penicillins Rash 08/18/2011 Shellfish Allergy Edema airway High 08/18/2011 documented as of this encounter (statuses as of 01/06/2024) Medications Medication Sig Dispensed Refills Start Date [...] mouth at bedtime 30 Tablet 12/23/2023 Active documented as of this encounter (statuses as of 01/06/2024) Active Problems Problem Noted Date Diagnosed Date Medical home patient encounter 11/18/2023 Chronic systolic heart failure 09/27/2023 DM kidney disease 09/27/2023 Renal cyst, acquired, left 01/18/2023 Urge incontinence 01/18/2023 Well adult exam 12/03/2022 Overview: 12/01 [facility] Dyspnea on exertion 11/29/2022 Spinal stenosis of [...] Mild 2013 PAF (paroxysmal atrial fibrillation) 07/14/2012 correction current use of anticoagulant therapy 0 07/14/2012 Overview: ICD-10 update of inactive term Dysthymia 11/30/2011 Coronary artery disease invo lving [place] coronary artery of [place] heart without angina pectoris Overview: 05/30/14 3V CABG [facility]. Prior: 5 stents-hx angina. [...] as of this encounter (statuses as of 01/06/2024) Resolved Problems Problem Noted Date Diagnosed Date [...] as of this encounter (statuses as of 01/06/2024) Immunizations Name Administration Dates Next Due COVID-19 [...] encounter Miscellaneous Notes * Telephone Encounter - Pham Navarrete LPN - 01/06/2024 12:25 PM EDT Pt's calling. Pt is currently admitted at [facility], for rehab from hip fracture, issue with voiding and pacemaker. would like to bring him. She is inquiring how his care will continue oncehome. I advised once d/c date is set, a f/u appt with PCP and any speciality dept will need sultana made. She verbalized understanding. No further questions. * Telephone Encounter - Peg Reilly OSA - 01/06/2024 12:21 PM EDT Reason for patient's call: Patients [place] calling to speak with a nurse about patients care and how to get him home from [facility]. Caller was transferred to Pham at the nurse line. documented in this encounter Plan of Treatment Upcoming Encounters Date Type Department Care Team (Late st Contact Info) Description 01/24/2024 1:30 PM EDT Office Visit Urology, [facility] [address] [place] [address] George Tran MD [address] [place] [address] 02/13/2024 3:30 PM EDT Office Visit Cardiology, [address] [place] [address] Esmer Alvarez PA-C [address] [place], [place] [address] [address] 03/13/2024 3:00 PM EDT Cardiac Studies Cardiac Studies, [facility] [address] [place] [address] Health Maintenance Due Date Last Done Comments [...] this encounter Medical Devices Implanted Type Area Channeler Device Identifier Shelf Expiration Date Model / Serial / Lot Sut Steel 6 M654g - [id number] Implanted:Qty: 4 on 05/30/2014 by Stanislav Hilliard MD at [place] [facility] N/A: Chest JNJ : [employer] 02/07/2019 M654G / / [id number] Marker Coronary [facility] - [id number] Implanted:Qty: 2 on 05/30/2014 by Stanislav Hilliard MD at [place] [facility] N/A: Aorta [employer] 03/10/2017 [facility] / / [id number] Lens Intraoc 20.5 - [id number] - [id number] Implanted:Qty: 1 on 02/18/2022 by Yandel Bowens MD at OR [facility] Left: Eye [employer] 11/07/2026 [id number] / [id number] / [id number] Lens Intraoc 21.5 - [id number] - [id number] Implanted:Qty: 1 on 03/04/2022 by Yandel Bowens MD at OR [facility] Right: Eye [employer] 10/08/2026 [id number] / [id number] / [id number] documented as of this encounter Advance Directives [...] Power of Attor jennifer? No Care Teams Human Resources Safety Manager Relationship Specialty Start Date End Date Angelo Vazquez MD [address] [place] [address] PCP - General Family Medicine 06/24/14 documented as of this encounter
--- OUTSIDE RECORDS SUMMARY | 2024-01-18 10:18 | External Medical Summary ---
Author Name Unknown Address Unknown Organization K0G:[facility] [place] [facility] [address] [place] [address] Laboratory Report Ordering Provider Test Date Status EVANS LARSON 12/31/2023 07:14:31 Final Observation Date Value Abnormality Reference (Units ) Status BUN 12/31/2023 07:14:31 24 Above high normal 6-20 (mg/dL) Final Creatinine 12/31/2023 07:14:31 1.2 0.6-1.2 (mg/dL) Final Glomerular filtration rate/1.73 sq M.predicted [Volume Rate/Area] in Serum, Plasma or Blood by Creatinine-based formula (CKD-EPI) 12/31/2023 07:14:31 58 Below low normal >=60 (mL/min) Final eGFR is calculated based on the CKD-EPI 2020 equation Sodium 12/31/2023 07:14:31 137 135-146 (m mol/L) Final Potassium 12/31/2023 07:14:31 3.7 3.5-5.1 (m mol/L) Final Cl 12/31/2023 07:14:31 99 98-107 (mm ol/L) Final CO2 12/31/2023 07:14:31 27 22-32 (mmo l/L) Final Anion gap 12/31/2023 07:14:31 11 7-15 (mmol /L) Final Glucose 12/31/2023 07:14:31 87 70-120 (mg /dL) Final Calcium 12/31/2023 07:14:31 8.3 Below low normal 8.4 -10.2 (mg/dL) Final Performing Location LABORATORY [facility] [address] [place] [address]
--- OUTSIDE RECORDS SUMMARY | 2024-01-18 10:18 | External Medical Summary ---
Author Name Unknown Address Unknown Organization K0G:[facility] [place] [address] [place] [address] Laboratory Report Ordering Provider Test Date Status EVANS LARSON 12/24/2023 06:04:13 Final Observation Date Value Abnormality Reference (Units ) Status BUN 12/24/2023 06:04:13 45 Above high normal 6-20 (mg/dL) Final Creatinine 12/24/2023 06:04:13 1.2 0.6-1.2 (mg/dL) Final Glomerular filtration rate/1.73 sq M.predicted [Volume Rate/Area] in Serum, Plasma or Blood by Creatinine-based formula (CKD-EPI) 12/24/2023 06:04:13 58 Below low normal >=60 (mL/min) Final eGFR is calculated based on the CKD-EPI 2020 equation Sodium 12/24/2023 06:04:13 143 135-146 (m mol/L) Final Potassium 12/24/2023 06:04:13 5.9 Above high normal 3. 5-5.1 (mmol/L) Final Cl 12/24/2023 06:04:13 104 98-107 (mm ol/L) Final CO2 12/24/2023 06:04:13 30 22-32 (mmo l/L) Final Anion gap 12/24/2023 06:04:13 9 7-15 (mmol /L) Final Glucose 12/24/2023 06:04:13 142 Above high normal 70 -120 (mg/dL) Final Calcium 12/24/2023 06:04:13 9.1 8.4-10.2 ( mg/dL) Final Performing Location LABORATORY [facility] [address] [place] [address]
--- OUTSIDE RECORDS SUMMARY | 2024-01-18 10:18 | External Medical Summary ---
Author Name Unknown Address Unknown Organization K09:[facility]ORY [place] [address] Laboratory Report Ordering Provider Test Date Status EVANS LARSON 12/26/2023 13:38:33 Final Observation Date Value Abnormality Reference (Units ) Status BUN 12/26/2023 13:38:33 34 Above high normal 6-20 (mg/dL) Final Creatinine 12/26/2023 13:38:33 1.1 0.6-1.2 (mg/dL) Final Glomerular filtration rate/1.73 sq M.predicted [Volume Rate/Area] in Serum, Plasma or Blood by Creatinine-based formula (CKD-EPI) 12/26/2023 13:38:33 63 >=60 (mL/min) Final eGFR is calculated based on the CKD-EPI 2020 equation Sodium 12/26/2023 13:38:33 140 135-146 (m mol/L) Final Potassium 12/26/2023 13:38:33 4.1 3.5-5.1 (m mol/L) Final Cl 12/26/2023 13:38:33 102 98-107 (mm ol/L) Final CO2 12/26/2023 13:38:33 24 22-32 (mmo l/L) Final Anion gap 12/26/2023 13:38:33 14 7-15 (mmol /L) Final Glucose 12/26/2023 13:38:33 126 Above high normal 70 -120 (mg/dL) Final Calcium 12/26/2023 13:38:33 8.5 8.4-10.2 ( mg/dL) Final Performing Location LAB[facility]ORY [place] [address]
--- OUTSIDE RECORDS SUMMARY | 2024-01-18 10:18 | External Medical Summary | Summary of Care ---
Author Name Unknown Organization [facility] Address [address] [place] [address] Phone [phone] Care Team Providers Care [employer] Warrant Officer Name Role Phone Angelo Vazquez MD Primary Care Provider + Reason for Visit * Reason Onset Date Comments Advice 12/27/2023 Encounter Details Date Type Department Care Team (Late st Contact Info) Description 12/27/2023 Telephone Family Practice [facility] [address] [place] [address] Angelo Vazquez MD [address] [place] [id number] Advice Allergies Active Allergy Reactions Criticality Noted Date Comments Bee Venom 12/30/2015 Iodine Other (Please comment) 08/18/2011 Pt says not to use due to shellfish allergy Morphine Anaphylaxis High 08/18/2011 Penicillins Rash 08/18/2011 Shellfish Allergy Edema airway High 08/18/2011 documented as of this encounter (statuses as of 01/05/2024) Medications Medication Sig Dispensed Refills Start Date [...] Tablet (Lipitor)Indication s:Paroxysmal atrial fibrillation (HCC),CAD in [place] artery,S/P CABG x 3 TAKE ONE TABLET BY MOUTH DAILY 90 Tablet 3 01/20/2023 01/25/2024 Active metFORMIN HCl 500 MG Oral Tablet (Glucophage)Indicat ions:Type 2 diabetes mellitus with hemoglobin A1c goal of less than 8.0% (HCC) TAKE ONE TABLET BY MOUTH DAILY 90 Tablet 3 04/21/2023 04/20/2024 Active Nitroglycerin 0.4 MG Sublingual Tablet Sublingual (Nitrostat)Indicati ons:CAD in [place] artery DISSOLVE 1 TABLET UNDER THE TONGUE [...] as of this encounter (statuses as of 01/05/2024) Active Problems Problem Noted Date Diagnosed Date Medical home patient encounter 11/18/2023 Chronic systolic heart failure 09/27/2023 DM kidney disease 09/27/2023 Renal cyst, acquired, left 01/18/2023 Urge incontinence 01/18/2023 Well adult exam 12/03/2022 Overview: 12/01 [facility] Dyspnea on exertion 11/29/2022 Spinal stenosis [...] Mild 2013 PAF (paroxysmal atrial fibrillation) 07/14/2012 [facility]DC current use of anticoagulant therapy 0 07/14/2012 Overview: ICD-10 update of inactive term Dysthymia 11/30/2011 Coronary artery disease invo lving [place] coronary artery of [place] heart without angina pectoris Overview: 05/30/14 3V [...] as of this encounter (statuses as of 01/05/2024) Resolved Problems Problem Noted Date Diagnosed Date [...] as of this encounter (statuses as of 01/05/2024) Immunizations Name Administration Dates Next Due COVID-19 [...] encounter Miscellaneous Notes * Telephone Encounter - Nela Fischer RN - 01/05/2024 10:37 AM EDT The patient is [facility] * Telephone Encounter - Barbie Singh OSA - 12/27/2023 10:36 AM EDT Pt would like to know what she can do to get in home care. Please advise. documented in this encounter Plan of Treatment Upcoming Encounters Date Type Department Care Team (Late st Contact Info) Description 01/24/2024 1:30 PM EDT Office Visit Urology, [facility] [address] [facility] [place] [address] George Tran MD [address] [place] [address] [place] [address] 02/13/2024 3:30 PM EDT Office Visit Cardiology, [facility] [address] [facility] [place] [address] Esmer Alvarez PA-C [address] [place] [address] [place] [address] 03/13/2024 3:00 PM EDT Cardiac Studies Cardiac Studies, [facility] [address] [facility] [place] [address] Health Maintenance Due Date Last Done Comments [...] this encounter Medical Devices Implanted Type Area Auto Self Service Station Attendant Device Identifier Shelf Expiration Date Model / Serial / Lot Sut Steel 6 M654g - [id number] Implanted:Qty: 4 on 05/30/2014 by Stanislav Hilliard [place] [facility] [place]: Chest JNJ : [employer] 02/07/2019 M654G / / [id number] Marker Coronary [facility] - [id number] Implanted:Qty: 2 on 05/30/2014 by Stanislav Hilliard MD [place] [facility] [place]/A: Aorta [employer] 03/10/2017 AM-SD / / [id number] Lens Intraoc 20.5 - [id number] - [id number] Implanted:Qty: 1 on 02/18/2022 by Yandel Bowens MD at OR [facility] Left: Eye [employer] 11/07/2026 [id number] / [id number] / [id number] Lens Intraoc 21.5 - [id number] - [id number] Implanted:Qty: 1 on 03/04/2022 by Yandel Bowens MD at OR [facility] Right: Eye [employer] 10/08/2026 [id number] / [id number] / [id number] documented as of this encounter Advance Directives [...] Power of Attor jennifer? No Care Teams [employer] Warrant Officer Relationship Specialty Start Date End Date Angelo Vazquez MD [address] [place] [address] PCP - General Family Medicine 06/24/14 documented as of this encounter
--- OUTSIDE RECORDS SUMMARY | 2024-01-18 10:18 | External Medical Summary ---
Author Name Unknown Address Unknown Organization K09:[facility] [place] [address] Laboratory Report Ordering Provider Test Date Status EVANS LARSON 12/27/2023 06:00:50 Final Observation Date Value Abnormality Reference (Units ) Status WBC, Total 12/27/2023 06:00:50 5.84 4.00-10.8 0 (K/uL) Final RBC 12/27/2023 06:00:50 3.07 4.50-5.25 (M/uL) Final Hemoglobin 12/27/2023 06:00:50 9.9 Below low normal 14 .0-16.8 (g/dL) Final HCT 12/27/2023 06:00:50 32.1 Below low normal 40. 0-48.4 (%) Final MCV 12/27/2023 06:00:50 104.6 82.0-99.5 (fL) Final MCH 12/27/2023 06:00:50 32.2 27.0-34.0 (pg) Final MCHC 12/27/2023 06:00:50 30.8 32.0-36.0 (g/dL) Final RDW 12/27/2023 06:00:50 16.8 11.5-15.5 (%) Final Platelets 12/27/2023 06:00:50 96 Below low normal 140 -400 (K/uL) Final MPV 12/27/2023 06:00:50 10.0 6.6-11.1 ( fL) Final Performing Location [facility] [place] [address]
--- OUTSIDE RECORDS SUMMARY | 2024-01-18 10:18 | External Medical Summary | Summary of Care ---
Author Name Unknown Organization [facility] Address [address] [place] [address] Phone [phone] Care Team Providers Care Mixed Crop Farmer Name Role Phone Angelo Vazquez MD Primary Care Provider + Encounter Details Date Type Department Care Team (Late st Contact Info) Description 01/09/2024 Orders Only Outcomes Research Department [address], [place] [id number] Nicole Perez CHRA [employer] Research Other*[id number] Allergies Active Allergy Reactions Criticality Noted Date Comments Bee Venom 12/30/2015 Iodine Other (Please comment) 08/18/2011 Pt says not to use due to shellfish allergy Morphine Anaphylaxis High 08/18/2011 Penicillins Rash 08/18/2011 Shellfish Allergy Edema airway High 08/18/2011 documented as of this encounter (statuses as of 01/09/2024) Medications Medication Sig Dispensed Refills Start Date [...] Tablet (Lipitor)Indication s:Paroxysmal atrial fibrillation (HCC),CAD in [place] artery,S/P CABG x 3 TAKE ONE TABLET BY MOUTH DAILY 90 Tablet 3 01/20/2023 01/25/2024 Active metFORMIN HCl 500 MG Oral Tablet (Glucophage)Indicat ions:Type 2 diabetes mellitus with hemoglobin A1c goal of less than 8.0% (HCC) TAKE ONE TABLET BY MOUTH DAILY 90 Tablet 3 04/21/2023 04/20/2024 Active Nitroglycerin 0.4 MG Sublingual Tablet Sublingual (Nitrostat)Indicati ons:CAD in [place] artery DISSOLVE 1 TABLET UNDER THE TONGUE [...] as of this encounter (statuses as of 01/09/2024) Active Problems Problem Noted Date Diagnosed Date Medical home patient encounter 11/18/2023 Chronic systolic heart failure 09/27/2023 DM kidney disease 09/27/2023 Renal cyst, acquired, left 01/18/2023 Urge incontinence 01/18/2023 Well adult exam 12/03/2022 Overview: 12/01 [facility] Dyspnea on exertion 11/29/2022 Spinal stenosis of [...] Dysthymia 11/30/2011 Coronary artery disease invo lving [place] coronary artery of [place] heart without angina pectoris Overview: 05/30/14 3V [...] as of this encounter (statuses as of 01/09/2024) Resolved Problems Problem Noted Date Diagnosed Date [...] as of this encounter (statuses as of 01/09/2024) Immunizations Name Administration Dates Next Due COVID-19 mRNA, LNP-s, No Pre serve, 2-Dose Series (Anzu) 06/11/2021,10/09/2020,09/19/2020 Covid-19, Mrna, Lnp-s, Pf, B ivalent, [...] 01/24/2024 1:30 PM EDT Office Visit Urology, [facility] [address] [facility] [place] [address] George Tran MD [address] [place] [address] 02/13/2024 3:30 PM EDT Office Visit Cardiology, [facility] 132 [facility] [place] [address] Esmer Alvarez PA-C [address] [facility] [place] [address] 03/13/2024 3:00 PM EDT Cardiac Studies Cardiac Studies, [facility] [address] [facility] [place] [address] Scheduled Orders Name Type Priority Associated Diagnoses Orde r Schedule MYCODE SUBSEQUENT ADULT Lab Routine [employer] Research Other*[id number] Every 6 Months for 2 Occurrences starting 01/09/2024 until 01/28/2025 Health Maintenance Due Date Last Done Comments [...] this encounter Medical Devices Implanted Type Area Rn Urology Device Identifier Shelf Expiration Date Model / Serial / Lot Sut Steel 6 M654g - [id number] Implanted:Qty: 4 on 05/30/2014 by Stanislav Hilliard MD [place] [facility] [place]/A: Chest JNJ : [employer] 02/07/2019 M654G / / [id number] Marker Coronary [facility] - [id number] Implanted:Qty: 2 on 05/30/2014 by Stanislav Hilliard MD [place] [facility] [place] N/A: Aorta [employer] 03/10/2017 AMGM-SD / / [id number] Lens Intraoc 20.5 - [id number] - [id number] Implanted:Qty: 1 on 02/18/2022 by Yandel Bowens MD at OR [facility] Left: Eye [employer] 11/07/2026 [id number] / [id number] / [id number] Lens Intraoc 21.5 - [id number] - [id number] Implanted:Qty: 1 on 03/04/2022 by Yandel Bowens MD at OR [facility] Right: Eye [employer] 10/08/2026 [id number] / [id number] / [id number] documented as of this encounter Visit Diagnoses Diagnosis [employer] Research Other*[id number] documented in this encounter Advance Directives * [...] Power of Attor jennifer? No Care Teams Mixed Crop Farmer Relationship Specialty Start Date End Date Angelo Vazquez MD [address] [place] [address] PCP - General Family Medicine 06/24/14 documented as of this encounter
[2024-01-18] MEDS ORDERED: Nursing to Pharmacy Communication SCH (10:30)
[2024-01-18 10:34] LABS: INR 5.6 (0.9-1.1)
[2024-01-18] MEDS: FUROSEMIDE 40 MG/4 ML VIAL IV SCH (10:46)
[2024-01-18] MEDS: metOLazone 2.5 MG TABLET PO ONE (10:46)
[2024-01-18 11:23] LABS: Lyme Screen Rflx Confirmation Positive (Negative)
[2024-01-18 11:57] LABS: Lyme Ab IgG 2nd Tier Confirm Positive (Negative)
[2024-01-18 11:58] LABS: Lyme Ab IgM 2nd Tier Confirm Negative (Negative)
[2024-01-18] MEDS: ACETAMINOPHEN 500 MG TAB PO PRN (12:15)
[2024-01-18] MEDS: INSULIN ASPART PER UNIT CHARGE SC SCH (12:36)
--- NOTE | 2024-01-18 13:39 | Nephrology Consultation ---
Date of Consultation January 18, 2024 Assessment & Plan (1) KARLENE (acute kidney injury): KARLENE is most likely related with ATN. is definitely not volume depleted and does not need aggressive IV hydration. In fact on his imaging he has evidence of fluid overload including CHF and some abdominal wall edema.. However we can continue the bicarb drip mainly to correct hyperkalemia at a lower rate of 75 mL/hour. LOW plt is chronic and unlikely he has KARLENE associated with Low PLT. No hydronephrosis on imaging but he does have chronic urinary retention and continue the Oneill. Given his issues with worsening dementia and overall decline He will not be a candidate for dialysis if such need arise. I would also give Lasix 80 iv bid and metolazone 2.5 mg one dose now to lower the K. (2) Acute hyperkalemia: already received all the hyperkalemia management but he has not received diu retics yet which I will give. Unless he makes good urine output hyperkalemia will not improve. Lasix 80 iv bid. one dose now. Also metolazone 2.5 mg one now. Check few hrs after this. (3) Urinary retention: Continue oneill. No hydronephrosis on the imaging though (4) Delirium: (5) Acute on chronic heart failure with preserved ejection fraction (HFpEF): Still has e/o this. In fact now with KARLENE from ATN on top situation is even more difficult. No JOHN/ARB/Aldactone/Entresto for now Plan Case complexity high. Time spent 58 mins[address] Plan discussed with Dr Love History of Present Illness Attending Physician: Meek Love MD History of Present Illness 88/M admitted 2 days ago because of abnormal outpatient blood work showing acute kidney injury with a creatinine of 2.2 and potassium of 6.0. prior to that on January 07, 2024 he had a creatinine 1.2 and a normal potassium. He has paroxysmal A-fib on Eliquis, HFrEF, history of pacemaker placement, CAD (s/p 3vCABG), HTN, aortic valve stenosis, BPH, depression DM II, h/o SIADH, dyslipidemia, hypothyroidism. patient is very confused and did not open eyes so unable to get any history from the patient. Patient was recently admitted to our service from 12/12- for decompensated heart failure treated with IV diuresis. Also noted to have urinary retention during that admission and Oneill catheter was placed with urology follow up later this month. Noted to have some hospital delirium on his suspected underlying dementia and was discharged on Risperdal and mel[facility] and was subsequently discharged home from there 10 days ago. Since returning home, family at bedside notes patient seems weak with decreased p.o. intake and lot less oral intake. since being admitted labs have not improved in fact it is worse--- creatinine is now 2.9 and potassium is even higher at 6.8 after which I have been consulted. CT scan shows e/o Fluid overload--CHF, Ascites and abd wall edema. has got medical management for high K--Bicarb, Lokelma, Iv fluid, Calcium gluconate but no lasix. Not much urine and does have oneill. ROS--- unable to obtain secondary to underlying mental status change Physical Exam Physical Exam: General Appearance: appears uncomfortable, delirious, intermittent agitation Neck: normal visual inspection JVD present Respiratory: normal respiratory effort, diminished breath sounds bilaterally. Cardiovascular: regular rate, rhythm, + murmur, 1+ BLE edema Abdomen/GI: normal bowel sounds, soft, nontender, no hepatosplenomegaly : Oneill Neurologic: PERRL, EOMI, accommodation nl, no face palsy, no dysarthria, CN's II-XI intact bilaterally and moves all extremities Psychiatric: Alert but not oriented, mumbling, restless Skin: no rashes, normal color, warm/dry Allergies Allergy/AdvReac Type Severity Reaction Status Date / Time iodine Allergy Severe DUE TO Verified 12/13/23 15:57 SHELLFISH ALLERGY-IODINATED DYE-UNKNOWN morphine Allergy Severe Anaphylaxis Verified 12/13/23 15:57 shellfish derived Allergy Severe ANAPHYLAXIS Verified 12/13/23 15:57 bee venom protein (honey bee) Allergy Intermediate EXTRA Verified 12/13/23 15:57 SWELLING AT SITES Penicillins Allergy Intermediate RASH Verified 12/13/23 15:57 Home Medications Medication Instructions Recorded Confirmed Type aspirin 81 mg tablet,delayed 81 mg PO QAM 07/21/19 01/17/24 History release atorvastatin 80 mg tablet 80 mg PO HS 07/21/19 01/17/24 History metformin 500 mg tablet 500 mg PO QAM 07/21/19 01/17/24 History pantoprazole 40 mg tablet,delayed 40 mg PO DAILYBB 07/21/19 01/17/24 History release nitroglycerin 0.4 mg sublingual 0.4 mg sublingual Q5M PRN Chest 05/31/21 01/17/24 History tablet Pain finasteride 5 mg tablet 5 mg PO QAM 11/29/22 01/17/24 History metoprolol succinate 25 mg 25 mg PO QAM 11/29/22 01/17/24 History tablet,extended release 24 hr apixaban 5 mg tablet (Eliquis) 5 mg PO Q12H #60 tabs 12/01/22 01/17/24 Rx acetaminophen 650 mg 1,300 mg PO Q8H PRN Pain 07/21/23 01/17/24 History tablet,extended release (Tylenol 8 Hour) escitalopram oxalate 10 mg tablet 10 mg PO QAM 07/21/23 01/17/24 History folic acid 1 mg tablet 1 mg PO QAM 11/14/23 01/17/24 History diclofenac sodium 1 % topical gel 2 g EXT Q6H PRN pain #100 grams 11/18/23 01/17/24 Rx (Voltaren Arthritis Pain) melatonin 3 mg tablet 6 mg (2 x 3 mg) PO HS #60 tabs 12/23/23 01/17/24 Rx furosemide 80 mg tablet 80 mg PO QAM 01/17/24 01/17/24 History mirtazapine 15 mg tablet 15 mg PO HS 01/17/24 01/17/24 History potassium chloride 20 mEq 20 meq PO QAM 01/17/24 01/17/24 History tablet,extended release Patient History Medical History (Updated 01/17/24 @ 19:18 by Alethea Keenan PA-C) HFrEF (heart failure with reduced ejection fraction) CHF (congestive heart failure) Anemia Ground-level fall ASCVD (arteriosclerotic cardiovascular disease) Closed right hip fracture Compression fracture of T12 vertebra Compression fracture of lumbar vertebra Labile blood pressure SIADH (syndrome of inappropriate ADH production) COVID-19 Nausea Coronary artery disease Supratherapeutic INR Atypical chest pain Lumbar stenosis Paroxysmal atrial fibrillation Surgical History History of coronary artery bypass graft History of carpal tunnel surgery "bilateral" S/P total hip arthroplasty S/P total knee arthroplasty 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; [facility]" History of percutaneous coronary intervention S/P lumbar microdiscectomy H/O heart artery stent Family History Father Coronary heart disease Social History Smoking Status: Never smoker Second Hand Exposure: No; Do You Dip or Chew Tobacco: No; Hx Alcohol Use: No Hx Substance Use: No Preferred Language: Greek Communication Ability: Effective Funeral Home Attendant Required: No Beliefs That Will Affect Care: None marital status: Current Living Situation: Spouse and Family current occupational status: retired Other Information That Helps Us Care for You: No Feels Safe at Home: Yes Safety Concerns: Feels Safe At This Time Assistive Devices: Glasses, Hearing Aid - Bilateral and Walker Results & Data Vital Signs (Past 12 Hours) Vital Signs Temp Pulse Pulse Resp BP Pulse Ox O2 Del Method 01/18/24 11:08 35.8 C L 88 20 101/71 95 Room Air 01/18/24 07:44 36.8 C 101 H 18 121/86 99 Room Air 01/18/24 07:33 96 H 01/18/24 03:08 36.1 C L 93 H 22 116/79 93 Room Air Laboratory Results hemoglobin 10.8 platelet count 91K Creat 2.9 and k is 6.8
--- NOTE | 2024-01-18 14:23 | XRay Report ---
SINGLE VIEW CHEST CLINICAL HISTORY: Congestive heart failure. FINDINGS: 3 AP, portable, upright chest radiographs are compared to study dated 12/24/2023. The examin ation is degraded by portable technique and patient rotation. The patient is status post midline benny rnotomy. A 2-lead cardiac pacemaker is unchanged in position and partially obscures the left lower ch est. The heart is enlarged noting atherosclerotic calcification of the thoracic aorta. There is pulmo nary vascular congestion. Small pleural effusions are suspected. Atelectasis is noted at the lung bas es. No pneumothorax is seen. The skeletal structures are osteopenic. The bony thorax is grossly intac t. Degenerative change is noted in the shoulders and spine. IMPRESSION: 1. Cardiomegaly and cardiac pacemaker with pulmonary vascular congestion. 2. Suspect small pleural effusions. ACT 112: Negative or not required by law. Electronically signed by: Yovani Goff M.D. 01/18/2024 2:22 PM
--- NOTE | 2024-01-18 15:19 | Hospitalist Progress Note ---
Date of Service January 18, 2024 Assessment & Plan (1) Acute hyperkalemia: (2) KARLENE (acute kidney injury): (3) Delirium: (4) Weakness: (5) HFrEF (heart failure with reduced ejection fraction): (6) Aortic stenosis: (7) DMII (diabetes mellitus, type 2): (8) Tachy-santy syndrome: (9) S/P placement of cardiac pacemaker: (10) Hypertension: (11) BPH with obstruction/lower urinary tract symptoms: (12) Urinary retention: (13) History of depression: (14) History of anemia: (15) Acquired hypothyroidism: Plan Patient is a 88yo M with a PMH of paroxysmal A-fib on Eliquis, HFrEF, history of pacemaker placement, CAD (s/p 3vCABG), HTN, aortic valve stenosis, BPH, depression DM II, SIADH, dyslipidemia, hypothyroidism and other problems listed below who was directed to the ED today due to abnormal outpatient labwork with hyperkalemia and KARLENE. Acute hyperkalemia Hold home potassium supplement Received IV insulin, calcium, bicarbonate Also on Lokelma Continue IV Lasix Monitor potassium levels Patient nephrology input Acute kidney failure with ATN Baseline Cr ~ 1.2) Cr: 2.9 today Avoid nephrotoxic agents as able Monitor renal function Appreciate nephrology input Catheter associated Complicated UTI Urine culture growing gram-negative bacilli Blood culture pending Empirically on IV Rocephin Delirium Acute Metabolic encephalopathy Noted since previous admission, superimposed on suspected mild dementia/UTI --CT Head: There is no hemorrhage, mass effect, or evidence of acute territorial ischemia by CT criteria. Risperidone, Seroquel discontinued by PCP Recently started on mirtazapine If no improvement with clinically, will obtain MRI brain Acute on chronic HFrEF--POA Aortic stenosis TTE from 11/17/2023 with moderate concentric LVH, mild global hypokinesis of the left ventricle, LVEF = 45-50%, calcified aortic valve leaflets w/ restricted leaflet mobility and mild to moderate aortic stenosis --Elevated BNP --CXR:Cardiomegaly and cardiac pacemaker with pulmonary vascular congestion. Suspect small pleural effusions. --CT ABD showed moderate body wall edema with small ascites. Continue IV Lasix Monitor volume status Will consider cardiology evaluation if needed Supratherapeutic INR: No acute bleeding issues Elevated LFTs: Likely secondary to sepsis. Hold statin for now. Monitor LFTs. Avoid hepatotoxic agents as able Chronic troponin elevation-likely demand ischemia Subacute periprosthetic right femur fracture -- CT showed subacute/healing comminuted and mildly displaced periprosthetic fracture within the residual proximal right femur primarily involving the greater trochanter. 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 Continue home dose levothyroxine Will need repeat thyroid labs as outpatient History of depression Continue SSRI started on mirtazapine by PCP DVT Px: Eliquis Code Status: Full Code Will need to readdress CODE STATUS if no improvement Admission and Anticipated Discharge Date Admission Date: January 17, 2024 Subjective Patient is seen and examined at bedside Unable to obtain much history secondary to altered mental status Has nausea associated with vomiting this morning No significant distress on exam Discussed with nephrology today Review of Systems Review of Systems: Other Physical Exam Physical Exam: Physical Exam: Vitals signs as noted above General Appearance:Moderately built and nourished, no apparent distress Head: normocephalic, Atraumatic Eyes: normal inspection, EOMI Neck: supple, Trachea midline Respiratory/Chest: Decreased breath sounds, CTA, No accessory muscle use Cardiovascular: S1, S2, +murmur, +Pacer Abdomen/GI:Soft, Non tender, Bowel sounds present Extremities/Musculoskeletal:normal inspection, Trace edema Neurologic/Psych:Confused, grossly no focal neurological deficits, + decreased hearing, hearing aids Skin: normal color, warm Results & Data Results & Data Vital Signs (Past 12 Hours) Vital Signs Temp Pulse Pulse Resp BP Pulse Ox O2 Del Method 01/18/24 15:13 36.2 C L 89 20 104/74 97 Room Air 01/18/24 11:08 35.8 C L 88 20 101/71 95 Room Air 01/18/24 07:44 36.8 C 101 H 18 121/86 99 Room Air 01/18/24 07:33 96 H Laboratory Results Short CBC 01/17/24 01/18/24 Range/Units 15:30 06:56 WBC 7.05 8.80 (4.8-10.8) K/ul Hgb 10.8 L 10.9 L (14.0-18.0) g/dl Hct 34.4 L 34.2 L (42.0-52.0) % Plt Count 111 L 81 L (130-400) K/uL BMP 01/17/24 01/17/24 01/17/24 15:30 18:02 21:08 Sodium 135 L 138 Potassium TNP 5.7 H 6.1 H* Chloride 101 103 Carbon Dioxide 19 L 19 L BUN 67 H 68 H Creatinine 2.93 H 2.94 H Glucose 134 H 72 Calcium 9.8 10.0 01/18/24 06:56 Sodium 140 Potassium 6.8 H* Chloride 104 Carbon Dioxide 20 L BUN 72 H Creatinine 2.99 H Glucose 43 L* Calcium 9.4 Liver Function 01/17/24 01/17/24 01/18/24 Range/Units 15:30 18:02 06:56 Total Bilirubin 1.7 H 1.9 H (0.2-1.0) mg/dl AST TNP 145 H 238 H ALT 92 H 144 H (7-52) U/L Alkaline Phosphatase 169 H 135 H (34-104) U/L Albumin 4.0 3.6 (3.4-5.0) gm/dl Urine 01/17/24 Range/Units 18:11 Urine Color Yellow Urine Appearance Cloudy A (Clear) Urine pH 5.5 (4.5-7.5) Ur Specific [place] 1.013 (1.000-1.030) Urine Protein 2+ H (Negative) Urine Glucose (UA) Negative (Negative) (6) Aortic stenosis Cardiac valve disease etiology: nonrheumatic Qualified Code(s): I35.0 - Nonrheumatic aortic (valve) stenosis (7) DMII (diabetes mellitus, type 2) Diabetes mellitus fpc insulin use: without fpc use Diabetes mellitus complication status: with other specified complication Qualified Code(s): E11.69 - Type 2 diabetes mellitus with other specified complication (10) Hypertension Hypertension type: essential hypertension Qualified Code(s): I10 - Essential (primary) hypertension
[2024-01-18 16:06] LABS: BUN Creatinine Ratio 24.3 (10-20); Calcium 9.9 mg/dl (8.6-10.3); Creatinine Clr Calc Pharmacy 19.7 ml/min; Est GFR (African American) 20.1 ml/min; Est GFR (Non-African American) 17.3 ml/min; Potassium 6.3 mmol/L (3.5-5.1)
[2024-01-18 16:11] LABS: Albumin Level 3.7 gm/dl (3.4-5.0); BUN Creatinine Ratio 24.8 (10-20); Calcium 9.6 mg/dl (8.6-10.3); Creatinine Clr Calc Pharmacy 20.1 ml/min; Est GFR (African American) 20.7 ml/min; Est GFR (Non-African American) 17.8 ml/min; Phosphorus 4.9 mg/dl (2.5-4.9); Potassium 6.3 mmol/L (3.5-5.1)
[2024-01-18 20:27] LABS: BUN Creatinine Ratio 24.6 (10-20); Calcium 9.5 mg/dl (8.6-10.3); Creatinine Clr Calc Pharmacy 19.2 ml/min; Est GFR (African American) 19.5 ml/min; Est GFR (Non-African American) 16.8 ml/min
[2024-01-19 07:15] LABS: Hematocrit (blood only) 33.9 % (42.0-52.0); Hemoglobin 10.8 g/dl (14.0-18.0); Mean Corpuscular Hemoglobin 31.7 pg (25.0-34.0); Mean Corpuscular Hgb Conc 31.9 g/dL (32.0-36.0); Mean Corpuscular Volume 99.4 fL (80.0-100.0); Mean Platelet Volume 12.3 fL (9.4-12.4); Nucleated RBC # (auto) 0.02 K/uL (0.00-0.12); Nucleated RBC % (auto) 0.2 %; Platelet Count 77 K/uL (130-400); Platelet Estimate Decreased (Normal); RDW Coefficient of Variation 17.2 % (11.5-14.5); RDW Standard Deviation 61.2 fL (36.4-46.3); Red Blood Count 3.41 M/uL (4.70-6.10); White Blood Count 8.58 K/ul (4.8-10.8)
[2024-01-19 07:33] LABS: Albumin Globulin Ratio 1.2 (0.9-2); Albumin Level 3.6 gm/dl (3.4-5.0); BUN Creatinine Ratio 25.2 (10-20); Calcium 9.1 mg/dl (8.6-10.3); Creatinine Clr Calc Pharmacy 19.1 ml/min; Est GFR (African American) 19.7 ml/min; Magnesium 2.3 mg/dl (1.7-2.4); Potassium 5.1 mmol/L (3.5-5.1); Total Protein 6.6 gm/dl (6.0-8.3)
[2024-01-19 07:44] LABS: INR 6.8 (0.9-1.1)
[2024-01-19] MEDS ORDERED: POLYETHYLENE (MIRALAX) 17 GM PACK PO PRN (07:56)
--- NOTE | 2024-01-19 13:55 | Nephrology Progress Note ---
Date of Service January 19, 2024 Assessment & Plan Admission and Anticipated Discharge Date Admission Date: January 17, 2024 Subjective Assessment & Plan (1) KARLENE (acute kidney injury): KARLENE is most likely related with ATN. is definitely not volume depleted and does not need aggressive IV hydration. In fact on his imaging he has evidence of fluid overload including CHF and some abdominal wall edema.. However we can continue the bicarb drip mainly to correct hyperkalemia at a lower rate of 75 mL/hour. LOW plt is chronic and unlikely he has KARLENE associated with Low PLT. No hydronephrosis on imaging but he does have chronic urinary retention and continue the [place]. Given his issues with worsening dementia and overall decline He will not be a candidate for dialysis if such need arise. I started the discussion with family but will continue the discussion. (2) Acute hyperkalemia: K got normal only after lasix and metolazone. Continue lasix 80 bid for now. No need of bicarb drip or the Lokelma (3) Urinary retention: Continue oneill. No hydronephrosis on the imaging though (4) Delirium: (5) Acute on chronic heart failure with preserved ejection fraction (HFpEF): Still has e/o this. In fact now with KARLENE from ATN on top situation is even more difficult. No JOHN/ARB/Aldactone/Entresto for now Plan Case complexity high. Time spent 48 mins. Plan discussed with Dr Love. Discussed in detail with and son about possible need of dialysis if renal function gets worse in coming days. explained the disease process also S---unable to obtain hisotry secondary to Confusion/Delirium. however Son and at bedside. he is aspirating as per RN. Not much urine 450 ml yesterday with iv lasix. K is ow normal though. Physical Exam Physical Exam: General Appearance: appears uncomfortable, delirious, intermittent agitation Neck: normal visual inspection JVD present Respiratory: normal respiratory effort, diminished breath sounds bilaterally. Cardiovascular: regular rate, rhythm, + murmur, 1+ BLE edema Abdomen/GI: normal bowel sounds, soft, nontender, no hepatosplenomegaly : Oneill Neurologic: PERRL, EOMI, accommodation nl, no face palsy, no dysarthria, CN's II-XI intact bilaterally and moves all extremities Psychiatric: Alert but not oriented, mumbling, restless Skin: no rashes, normal color, warm/dry Results & Data Vital Signs (Past 12 Hours) Vital Signs Temp Pulse Pulse Resp BP Pulse Ox O2 Del Method 01/19/24 10:56 90 22 124/88 98 Room Air 01/19/24 08:00 Room Air 01/19/24 07:19 94 H 19 124/89 99 Room Air 01/19/24 07:05 92 H 01/19/24 02:25 36.6 C 96 H 22 109/77 99 Room Air
--- NOTE | 2024-01-19 15:52 | Gastrointestinal Consultation ---
<Statement entered by Esmer Avila MD - 01/19/24 16:05> I have examined the patient, reviewed the History & Physical and in the interval since the performance of the History & Physical I have noted the following changes of clinical significance: no changes noted. I agree with the documentation provided by ALEJO Carrington with no additional comments. Elevated LFTs, INR and low platelets are more likely to be 2ndary to cardiac, nutritional, and infectious etiologies than a primary liver process. Recommend reversing INR to determine synthetic function, avoid hepatotoxins, check ammonia, also recommend echo to assess for any changes in cardiac status that could precipitate a cardiogenic source of abnormal LFTs. Tylenol should be avoided at this time but, if resumed, should be limited to 2grams daily. Date of Consultation January 19, 2024 Assessment & Plan (1) Transaminitis: Patient admitted with KARLENE and hyperkalemia. he was found to have elevated LFTs and INR. patient is confused and unable to answer questions. family is at bedside but deny any family history of liver issues or etoh use. - recommend that he be given Vit K 5mg po x 3 days given the elevated INR. would also recommend that the patient have an updated ECHO to see if heart failure is playing a factor in his rise in LFTs. - check hep panel and ammonia. will continue to trend LFTs. History of Present Illness Reason for Consultation: transaminitis Requesting Physician: Meek Love MD Attending Physician: Meek Love MD History of Present Illness Patient is an 88 year old male with a PMH of paroxysmal A-fib on Eliquis, HFrEF, history of pacemaker placement, CAD (s/p 3vCABG), HTN, aortic valve stenosis, BPH, depression DM II, SIADH, dyslipidemia, hypothyroidism who was directed to the ED today due to abnormal outpatient labwork with hyperkalemia and KARLENE. During his work up he was found to have elevated LFTs. patient is still confused and is unable to answer questions. His family are at bedside and helped with history. patient does not drink ETOH, no drug use, and no family history of liver disease. family notes he has been on several different medications since he had hip fracture in November and has been treated for UTIs. 01/19/24 T bili 2, AST 373, ALT 235, Alk Phos 174, INR 6.8. 01/17/24 CT 1. Cardiomegaly with mild congestive change and bilateral pleural effusions. 2. Moderate body wall edema with small amount of ascites. This is new compared the prior study. 3. Questionable thickening within the ascending colon is likely due to underdistention. A low-grade colitis is is not excluded. 4. Colonic diverticulosis. No evidence for acute diverticulitis. 5. Cholelithiasis. 6. Subacute to chronic compression deformities at T11 and T12 again noted. 7. There is a subacute/healing comminuted and mildly displaced periprosthetic fracture within the residual proximal right femur primarily involving the greater trochanter. 8. Additional findings as described above. (see report) Allergies Allergy/AdvReac Type Severity Reaction Status Date / Time iodine Allergy Severe DUE TO Verified 12/13/23 15:57 SHELLFISH ALLERGY-IODINATED DYE-UNKNOWN morphine Allergy Severe Anaphylaxis Verified 12/13/23 15:57 shellfish derived Allergy Severe ANAPHYLAXIS Verified 12/13/23 15:57 bee venom protein (honey bee) Allergy Intermediate EXTRA Verified 12/13/23 15:57 SWELLING AT SITES Penicillins Allergy Intermediate RASH Verified 12/13/23 15:57 Home Medications Medication Instructions Recorded Confirmed Type aspirin 81 mg tablet,delayed 81 mg PO QAM 07/21/19 01/17/24 History release atorvastatin 80 mg tablet 80 mg PO HS 07/21/19 01/17/24 History metformin 500 mg tablet 500 mg PO QAM 07/21/19 01/17/24 History pantoprazole 40 mg tablet,delayed 40 mg PO DAILYBB 07/21/19 01/17/24 History release nitroglycerin 0.4 mg sublingual 0.4 mg sublingual Q5M PRN Chest 05/31/21 01/17/24 History tablet Pain finasteride 5 mg tablet 5 mg PO QAM 11/29/22 01/17/24 History metoprolol succinate 25 mg 25 mg PO QAM 11/29/22 01/17/24 History tablet,extended release 24 hr apixaban 5 mg tablet (Eliquis) 5 mg PO Q12H #60 tabs 12/01/22 01/17/24 Rx acetaminophen 650 mg 1,300 mg PO Q8H PRN Pain 07/21/23 01/17/24 History tablet,extended release (Tylenol 8 Hour) escitalopram oxalate 10 mg tablet 10 mg PO QAM 07/21/23 01/17/24 History folic acid 1 mg tablet 1 mg PO QAM 11/14/23 01/17/24 History diclofenac sodium 1 % topical gel 2 g EXT Q6H PRN pain #100 grams 11/18/23 01/17/24 Rx (Voltaren Arthritis Pain) melatonin 3 mg tablet 6 mg (2 x 3 mg) PO HS #60 tabs 12/23/23 01/17/24 Rx furosemide 80 mg tablet 80 mg PO QAM 01/17/24 01/17/24 History mirtazapine 15 mg tablet 15 mg PO HS 01/17/24 01/17/24 History potassium chloride 20 mEq 20 meq PO QAM 01/17/24 01/17/24 History tablet,extended release Patient History Medical History (Updated 01/17/24 @ 19:18 by Alethea Keenan PA-C) HFrEF (heart failure with reduced ejection fraction) CHF (congestive heart failure) Anemia Ground-level fall ASCVD (arteriosclerotic cardiovascular disease) Closed right hip fracture Compression fracture of T12 vertebra Compression fracture of lumbar vertebra Labile blood pressure SIADH (syndrome of inappropriate ADH production) COVID-19 Nausea Coronary artery disease Supratherapeutic INR Atypical chest pain Lumbar stenosis Paroxysmal atrial fibrillation Surgical History History of coronary artery bypass graft History of carpal tunnel surgery "bilateral" S/P total hip arthroplasty S/P total knee arthroplasty 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; [facility]" History of percutaneous coronary intervention S/P lumbar microdiscectomy H/O heart artery stent Family History Father Coronary heart disease Social History Smoking Status: Never smoker Second Hand Exposure: No; Do You Dip or Chew Tobacco: No; Hx Alcohol Use: No Hx Substance Use: No Preferred Language: Tamazight Communication Ability: Effective Second Steward Required: No Beliefs That Will Affect Care: None marital status: Current Living Situation: Spouse and Family current occupational status: retired Other Information That Helps Us Care for You: No Feels Safe at Home: Yes Safety Concerns: Feels Safe At This Time Assistive Devices: Walker Review of Systems Review of Systems: Unobtainable due to cognitive status Physical Exam Constitutional: WD/WN, vitals as above Respiratory: normal respiratory effort, lungs clear to auscultation Cardiovascular: RRR, no murmur, no edema Gastrointestinal (Abdomen): normal bowel sounds, soft, nontender, no hepatosplenomegaly Skin: no jaundice Results & Data Vital Signs (Past 12 Hours) Vital Signs Temp Pulse Pulse Resp BP Pulse Ox O2 Del Method 01/19/24 15:26 92 H 01/19/24 15:22 98.2 F 90 19 115/72 91 Room Air 01/19/24 10:56 90 22 124/88 98 Room Air 01/19/24 08:00 Room Air 01/19/24 07:19 94 H 19 124/89 99 Room Air 01/19/24 07:05 92 H Coding Level of Care Code 62010 INT INP/OBS CARE 2/55MIN Diagnoses Transaminitis R74.01
--- NOTE | 2024-01-19 17:20 | Hospitalist Progress Note ---
Date of Service January 19, 2024 Assessment & Plan (1) Acute hyperkalemia: (2) KARLENE (acute kidney injury): (3) Delirium: (4) Weakness: (5) HFrEF (heart failure with reduced ejection fraction): (6) Aortic stenosis: (7) DMII (diabetes mellitus, type 2): (8) Tachy-santy syndrome: (9) S/P placement of cardiac pacemaker: (10) Hypertension: (11) BPH with obstruction/lower urinary tract symptoms: (12) Urinary retention: (13) History of depression: (14) History of anemia: (15) Acquired hypothyroidism: Plan Patient is a 88yo M with a PMH of paroxysmal A-fib on Eliquis, HFrEF, history of pacemaker placement, CAD (s/p 3vCABG), HTN, aortic valve stenosis, BPH, depression DM II, SIADH, dyslipidemia, hypothyroidism and other problems listed below who was directed to the ED today due to abnormal outpatient labwork with hyperkalemia and KARLENE. Acute hyperkalemia Hold home potassium supplement Received IV insulin, calcium, bicarbonate Lokelma discontinued Continue IV Lasix per nephro Monitor potassium levels Appreciate nephrology input Potassium 5.1 today Acute kidney failure with ATN Baseline Cr ~ 1.2) Cr: 3.14 today Avoid nephrotoxic agents as able Appreciate nephrology input Likely poor candidate for dialysis if needed Continue to monitor renal function closely Catheter associated Complicated UTI Urine culture grew E coli Blood culture negative to date Continue IV Rocephin Delirium Acute Metabolic encephalopathy Noted since previous admission, superimposed on suspected mild dementia/UTI --CT Head: There is no hemorrhage, mass effect, or evidence of acute territorial ischemia by CT criteria. Risperidone, Seroquel discontinued by PCP Recently started on mirtazapine If no improvement with clinically, will obtain MRI brain Acute on chronic HFrEF--POA Aortic stenosis TTE from 11/17/2023 with moderate concentric LVH, mild global hypokinesis of the left ventricle, LVEF = 45-50%, calcified aortic valve leaflets w/ restricted leaflet mobility and mild to moderate aortic stenosis --Elevated BNP --CXR:Cardiomegaly and cardiac pacemaker with pulmonary vascular congestion. Suspect small pleural effusions. --CT ABD showed moderate body wall edema with small ascites. Continue IV Lasix Monitor volume status Will consider cardiology evaluation if needed Dysphagia High aspiration risk Explained in detail with patient's family Family understands and agrees with the plan Pured diet for now Speech therapy evaluated Aspiration precautions Supratherapeutic INR: No acute bleeding issues Elevated LFTs: Likely secondary to sepsis. Hold statin for now. Monitor LFTs. Avoid hepatotoxic agents as able Chronic troponin elevation-likely demand ischemia Transaminitis Elevated INR Unclear etiology --Recent Gall bladder USD:Subtle nodular contour to the liver suggestive of early cirrhosis. Small right pleural effusion and trace perihepatic ascites. Cholelithiasis. There is mild gallbladder wall thickening. Will update echo as recommended Appreciate GI input Will give vitamin K Check hepatitis panel, ammonia levels Monitor LFTs Subacute periprosthetic right femur fracture -- CT showed subacute/healing comminuted and mildly displaced periprosthetic fracture within the residual proximal right femur primarily involving the greater trochanter. 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 Continue home dose levothyroxine Will need repeat thyroid labs as outpatient History of depression Continue SSRI started on mirtazapine by PCP DVT Px: Eliquis Code Status: Full Code Will need to readdress CODE STATUS if no improvement Admission and Anticipated Discharge Date Admission Date: January 17, 2024 Subjective Patient is seen and examined at bedside Unable to obtain much history secondary to confusion Follow simple commands Discussed extensively with family at bedside today Noted to be constipated per RN Was transiently nauseous this morning Very poor oral intake Has generalized weakness Review of Systems Review of Systems: Other Physical Exam Physical Exam: Physical Exam: Vitals signs as noted above General Appearance:Moderately built and nourished, no apparent distress Head: normocephalic, Atraumatic Eyes: normal inspection, EOMI Neck: supple, Trachea midline Respiratory/Chest: Decreased breath sounds, CTA, No accessory muscle use Cardiovascular: S1, S2, +murmur, +Pacer Abdomen/GI:Soft, Non tender, Bowel sounds present Extremities/Musculoskeletal:normal inspection, Trace edema Neurologic/Psych:Confused, grossly no focal neurological deficits, + decreased hearing, hearing aids Skin: normal color, warm Results & Data Results & Data Vital Signs (Past 12 Hours) Vital Signs Temp Pulse Pulse Resp BP Pulse Ox O2 Del Method 01/19/24 15:26 92 H 01/19/24 15:22 36.8 C 90 19 115/72 91 Room Air 01/19/24 10:56 90 22 124/88 98 Room Air 01/19/24 08:00 Room Air 01/19/24 07:19 94 H 19 124/89 99 Room Air 01/19/24 07:05 92 H Laboratory Results Short CBC 01/19/24 Range/Units 06:17 WBC 8.58 (4.8-10.8) K/ul Hgb 10.8 L (14.0-18.0) g/dl Hct 33.9 L (42.0-52.0) % Plt Count 77 L (130-400) K/uL BMP 01/18/24 01/19/24 19:52 06:17 Sodium 138 141 Potassium 6.0 H 5.1 Chloride 101 100 Carbon Dioxide 20 L 23 BUN 78 H 79 H Creatinine 3.17 H 3.14 H Glucose 161 H 135 H Calcium 9.5 9.1 Liver Function 01/19/24 Range/Units 06:17 Total Bilirubin 2.0 H (0.2-1.0) mg/dl AST 373 H (13-39) U/L ALT 235 H (7-52) U/L Alkaline Phosphatase 174 H (34-104) U/L Albumin 3.6 (3.4-5.0) gm/dl (6) Aortic stenosis Cardiac valve disease etiology: nonrheumatic Qualified Code(s): I35.0 - Nonrheumatic aortic (valve) stenosis (7) DMII (diabetes mellitus, type 2) Diabetes mellitus adjunct 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
[2024-01-19] MEDS: PHYTONADIONE 5 MG TAB PO ONE (17:47)
[2024-01-19 18:55] LABS: HepB Surface Ag with confirm Negative (Negative)
[2024-01-19 19:01] LABS: HepC Ab Rflx HepCQuant RNA Negative (Negative)
[2024-01-19] MEDS: SENNA 8.6 MG TAB PO SCH (20:16)
--- NOTE | 2024-01-20 04:39 | Communication Note ---
Date of Service: January 20, 2024 Patient confused as per RN. Complaining of headache and not feeling well. Dried blood in the mouth as per RN. No abdominal pain on palpation as per RN PPE Lethargic No respiratory distress AP Encephalopathy Thrombocytopenia with abnormal coags and mucosal bleed rule out DIC Eliquis Rx CT head DIC workup Hold aspirin and Eliquis for now Patient updated of developments over the phone.
[2024-01-20] MEDS: ACETAMINOPHEN 1,000 MG/100 ML VIAL IV STA (04:52)
[2024-01-20 06:12] LABS: Basophils # (auto) 0.01 K/uL (0.00-0.20); Basophils % (auto) 0.1 %; Eosinophils # (auto) 0.13 K/uL (0.00-0.50); Eosinophils % (auto) 1.8 %; Hematocrit (blood only) 31.1 % (42.0-52.0); Hemoglobin 9.9 g/dl (14.0-18.0); Immature Granulocytes # (auto) 0.03 K/uL (0.01-0.20); Immature Granulocytes % (auto) 0.4 %; Lymphocytes # (auto) 0.87 K/uL (1.20-3.40); Lymphocytes % (auto) 12.4 %; Mean Corpuscular Hgb Conc 31.8 g/dL (32.0-36.0); Mean Corpuscular Volume 97.5 fL (80.0-100.0); Mean Platelet Volume 12.6 fL (9.4-12.4); Monocytes # (auto) 0.86 K/uL (0.11-0.59); Monocytes % (auto) 12.2 %; Neutrophils # (auto) 5.14 K/uL (1.40-6.50); Neutrophils % (auto) 73.1 %; Platelet Count 68 K/uL (130-400); RDW Coefficient of Variation 16.8 % (11.5-14.5); RDW Standard Deviation 59.2 fL (36.4-46.3); Red Blood Count 3.19 M/uL (4.70-6.10); White Blood Count 7.04 K/ul (4.8-10.8)
[2024-01-20 06:31] LABS: Albumin Globulin Ratio 1.2 (0.9-2); Albumin Level 3.4 gm/dl (3.4-5.0); BUN Creatinine Ratio 25.3 (10-20); Bilirubin,Total 1.9 mg/dl (0.2-1.0); Calcium 8.8 mg/dl (8.6-10.3); Creatinine Clr Calc Pharmacy 16.7 ml/min; Est GFR (African American) 16.8 ml/min; Est GFR (Non-African American) 14.5 ml/min; Globulin 2.9 gm/dl (2.5-4.0); Magnesium 2.3 mg/dl (1.7-2.4); Potassium 4.6 mmol/L (3.5-5.1); Total Protein 6.3 gm/dl (6.0-8.3)
[2024-01-20 06:32] LABS: Fibrinogen 140 mg/dl (184-400); Partial Thromboplastin Time 80 Seconds (21-31); Prothrombin Time 87.2 Seconds (9.0-12.0)
[2024-01-20 06:59] LABS: INR > 9.5 (0.9-1.1)
[2024-01-20 07:00] LABS: D Dimer 2750 ug/L FEU (0-500)
--- NOTE | 2024-01-20 07:05 | CT Scan Report ---
CT head/brain wo con CLINICAL HISTORY: 88 years-old Male with fuchs, eliquis. Acute headache TECHNIQUE: Multiple axial CT images of the head were obtained without contrast. A dose lowering tech nique was utilized adhering to the principles of ALARA. CT DOSE: 1799.69 mGy.cm COMPARISON: 01/17/2024 FINDINGS: No acute intracranial hemorrhage, midline shift, intracranial mass, hydrocephalus, territorial ischem ia or abnormal extra-axial collection. Motion degraded exam. Involutional changes with chronic microv ascular ischemic disease. Unchanged subcentimeter left pontine calcification. The calvarium is intact. The paranasal sinuses, mastoid air cells, and middle ear cavities are clear . IMPRESSION: Motion degraded exam. No acute intracranial abnormality identified. ACT 112: Negative or not required by law. The above report was generated using voice recognition software. It may contain grammatical, syntax o r spelling errors. Electronically signed by: Viet Whittaker M.D. 01/20/2024 7:03 AM
[2024-01-20] MEDS: PHYTONADIONE 10 MG in DEXTROSE 5% 50 ML IV ONE (08:28)
[2024-01-20 09:28] LABS: Reticulocyte % 2.92 % (0.50-2.00)
[2024-01-20 09:51] LABS: Acanthocytes 1+; Echinocytes 1+; Polychromasia 1+
--- NOTE | 2024-01-20 10:00 | Cardiology Consultation ---
Date of Consultation January 20, 2024 Assessment & Plan (1) Delirium: (2) KARLENE (acute kidney injury): (3) Chronic systolic heart failure: (4) Aortic stenosis: (5) Ischemic cardiomyopathy: Plan 88-year-old male with complex underlying medical and cardiac issues as outlined. Presents this admission with declining overall clinical status with multisystem organ failure including acute renal insufficiency, declining LV function, worsening delirium. Patient in atrial fibrillation with ventricular paced rhythm. Echocardiogram demonstrates substantial decline in ejection fraction with mildly decompensated heart failure on presentation Patient not responding to medical therapies Discussed above findings in detail with patient's . Very cognizant of patient's decline and wishes comfort measures In agreement with family's desires. Multiple nonreversible medical concerns Recommend changing CODE STATUS. History of Present Illness Reason for Consultation: CHF Requesting Physician: Pipe cardozo Attending Physician: Meek Love MD History of Present Illness Medically complex 88-year-old male admitted on 01/17/2024 due to mental status change as well as KARLENE with hyperkalemia. Admitting creatinine was 2.93. Potassium 6.2. Nephrology following-- felt KARLENE secondary to ATN. Patient carries a history of systolic heart failure as well as aortic stenosis. -Echo from 11/17/2023 with moderate concentric LVH, mild global hypokinesis of the left ventricle, LVEF = 45-50%, calcified aortic valve leaflets w/ restricted leaflet mobility and mild to moderate aortic stenosis -Repeat echocardiogram this admission showed worsening LV systolic function with an EF of 20 to 25%. There is moderate to severe global hypokinesis. Apical wall motion abnormality may reflect pacemaker activation. Mild to moderate aortic stenosis and regurgitation. Moderate MR/TR. 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 Has had progressive clinical decline since hospitalization in December. Increasing delirium and obtundation at home laboratory testing done as an outpatient demonstrate marked metabolic derangement and failing renal function. Clinical scenario has not improved in hospital and echocardiogram demonstrates in addition to above significant decline in LV systolic function, moderate mitral tricuspid insufficient Allergies Allergy/AdvReac Type Severity Reaction Status Date / Time iodine Allergy Severe DUE TO Verified 12/13/23 15:57 SHELLFISH ALLERGY-IODINATED DYE-UNKNOWN morphine Allergy Severe Anaphylaxis Verified 12/13/23 15:57 shellfish derived Allergy Severe ANAPHYLAXIS Verified 12/13/23 15:57 bee venom protein (honey bee) Allergy Intermediate EXTRA Verified 12/13/23 15:57 SWELLING AT SITES Penicillins Allergy Intermediate RASH Verified 12/13/23 15:57 Home Medications Medication Instructions Recorded Confirmed Type aspirin 81 mg tablet,delayed 81 mg PO QAM 07/21/19 01/17/24 History release atorvastatin 80 mg tablet 80 mg PO HS 07/21/19 01/17/24 History metformin 500 mg tablet 500 mg PO QAM 07/21/19 01/17/24 History pantoprazole 40 mg tablet,delayed 40 mg PO DAILYBB 07/21/19 01/17/24 History release nitroglycerin 0.4 mg sublingual 0.4 mg sublingual Q5M PRN Chest 05/31/21 01/17/24 History tablet Pain finasteride 5 mg tablet 5 mg PO QAM 11/29/22 01/17/24 History metoprolol succinate 25 mg 25 mg PO QAM 11/29/22 01/17/24 History tablet,extended release 24 hr apixaban 5 mg tablet (Eliquis) 5 mg PO Q12H #60 tabs 12/01/22 01/17/24 Rx acetaminophen 650 mg 1,300 mg PO Q8H PRN Pain 07/21/23 01/17/24 History tablet,extended release (Tylenol 8 Hour) escitalopram oxalate 10 mg tablet 10 mg PO QAM 07/21/23 01/17/24 History folic acid 1 mg tablet 1 mg PO QAM 11/14/23 01/17/24 History diclofenac sodium 1 % topical gel 2 g EXT Q6H PRN pain #100 grams 11/18/23 01/17/24 Rx (Voltaren Arthritis Pain) melatonin 3 mg tablet 6 mg (2 x 3 mg) PO HS #60 tabs 12/23/23 01/17/24 Rx furosemide 80 mg tablet 80 mg PO QAM 01/17/24 01/17/24 History mirtazapine 15 mg tablet 15 mg PO HS 01/17/24 01/17/24 History potassium chloride 20 mEq 20 meq PO QAM 01/17/24 01/17/24 History tablet,extended release Patient History Medical History HFrEF (heart failure with reduced ejection fraction) CHF (congestive heart failure) Anemia Ground-level fall ASCVD (arteriosclerotic cardiovascular disease) Closed right hip fracture Compression fracture of T12 vertebra Compression fracture of lumbar vertebra Labile blood pressure SIADH (syndrome of inappropriate ADH production) COVID-19 Nausea Coronary artery disease Supratherapeutic INR Atypical chest pain Lumbar stenosis Paroxysmal atrial fibrillation Surgical History History of coronary artery bypass graft History of carpal tunnel surgery "bilateral" S/P total hip arthroplasty S/P total knee arthroplasty 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; [place]" History of percutaneous coronary intervention S/P lumbar microdiscectomy H/O heart artery stent Family History Father Coronary heart disease Social History Smoking Status: Never smoker Second Hand Exposure: No; Do You Dip or Chew Tobacco: No; Hx Alcohol Use: No Hx Substance Use: No Preferred Language: [place] Communication Ability: Effective Water Sander Required: No Beliefs That Will Affect Care: None marital status: Current Living Situation: Spouse and Family current occupational status: retired Other Information That Helps Us Care for You: No Feels Safe at Home: Yes Safety Concerns: Feels Safe At This Time Assistive Devices: Walker Review of Systems Review of Systems: Unobtainable due to cognitive status Physical Exam Constitutional: no acute distress Eyes: PERRL, conjunctivae normal, anicteric sclerae ENMT: external ear and nose normal, oropharynx normal Neck: trachea midline, no thyromegaly Respiratory: Auscultation: + diminished lung sounds Cardiovascular: Rate/Rhythm: + irregularly irregular (With ventricular pacing) Vessels: no JVD Extremities: + edema (Trace) Chest (Breasts): Chest: + pacemaker Gastrointestinal (Abdomen): normal bowel sounds, soft, nontender, no hepatosplenomegaly Results & Data Vital Signs (Past 12 Hours) Vital Signs Temp Pulse Pulse Resp BP BP Pulse Ox 01/20/24 09:00 36.3 C L 94 H 16 129/84 98 01/20/24 08:43 36.2 C L 87 17 111/76 97 01/20/24 08:26 36.3 C L 92 H 16 121/79 100 01/20/24 07:42 01/20/24 07:15 36.3 C L 88 18 115/79 97 01/20/24 05:54 88 101/65 01/20/24 05:46 82 99/67 L 01/20/24 04:37 91 H 108/72 01/20/24 02:50 36.5 C 94 H 18 117/74 99 01/19/24 23:28 89 01/19/24 22:53 36.5 C 93 H 18 122/82 96 O2 Del Method 01/20/24 09:00 Room Air 01/20/24 08:43 Room Air 01/20/24 08:26 Room Air 01/20/24 07:42 Room Air 01/20/24 07:15 Room Air 01/20/24 05:54 01/20/24 05:46 01/20/24 04:37 01/20/24 02:50 Room Air 01/19/24 23:28 01/19/24 22:53 Room Air Laboratory Results Cardiac Enzymes 01/20/24 01/20/24 01/20/24 Range/Units 04:54 04:58 05:48 AST Cancelled 429 H Lactate Dehydrogenase Cancelled 676 H Coagulation 01/20/24 01/20/24 Range/Units 04:54 04:58 PT 87.2 H Cancelled (9.0-12.0) Seconds APTT 80 H Cancelled (21-31) Seconds CBC 01/20/24 01/20/24 Range/Units 04:58 05:48 WBC Cancelled 7.04 RBC Cancelled 3.19 L Hgb Cancelled 9.9 L Hct Cancelled 31.1 L Plt Count Cancelled 68 L Neut # (Auto) Cancelled 5.14 Lymph # (Auto) Cancelled 0.87 L [place] # (Auto) Cancelled 0.86 H Eos # (Auto) Cancelled 0.13 Baso # (Auto) Cancelled 0.01 Comprehensive Metabolic Panel 01/20/24 01/20/24 Range/Units 04:58 05:48 Sodium Cancelled 143 Potassium Cancelled 4.6 Chloride Cancelled 102 Carbon Dioxide Cancelled 23 BUN Cancelled 91 H Creatinine Cancelled 3.59 H D Glucose Cancelled 115 H Calcium Cancelled 8.8 AST Cancelled 429 H ALT Cancelled 280 H Alkaline Phosphatase Cancelled 182 H Total Protein Cancelled 6.3 Albumin Cancelled 3.4 Intake and Output 01/19/24 01/20/24 01/20/24 22:59 06:59 14:59 Intake Total 50 / 115 65 / 115 51 / 51 Output Total 300 / 800 500 / 800 Balance -250 / -685 -435 / -685 51 / 51 Intake: IV 50 / 115 65 / 115 51 / 51 Acetaminophen 1,000 mg In 100 65 / 65 0 / 0 ml @ 400 mls/hr IV NOW STA Rx#: [id number] Phytonadione 10 mg In Dextrose / 51 5% 50 ml @ 102 mls/hr IV ONE ONE Rx#:[id number] cefTRIAXone SODIUM 2,000 mg In 50 / 50 50 ml @ 100 mls/hr IV Q24H [facility] Rx#:[id number] Output: Urine Amount (Catheter) 300 / 800 500 / 800 Olivo/Indwelling 300 / 800 500 / 800 Other: Other Intake Source Sips Weight 87.9 kg Weight Measurement Method Built in [facility] Diagnostic Findings Laboratory Results - last 24 hr 01/19/24 01/19/24 01/19/24 11:03 16:04 16:13 WBC RBC Hgb Hct MCV MCH MCHC RDW Std Deviation RDW Coeff of [place] Plt Count MPV Immature Gran % (Auto) Neut % (Auto) Lymph % (Auto) [place] % (Auto) Eos % (Auto) Baso % (Auto) Reticulocyte % (Auto) Neut # (Auto) Lymph # (Auto) [place] # (Auto) Eos # (Auto) Baso # (Auto) Reticulocyte # Immature Gran # (Auto) Absolute Nucleated RBC Nucleated RBC % (auto) Neutrophils % (Manual) Band Neutrophils % Lymphocytes % (Manual) Prolymphocyte % Reactive Lymphs % (Man) Monocytes % (Manual) Eosinophils % (Manual) Basophils % (Manual) Metamyelocytes % (Man) Myelocytes % (Man) Promyelocytes % (Man) Blast Cells % (Manual) Plasma Cell % (Manual) Other Cells % Nucleated RBC % Neutrophils # (Manual) Band Neutrophils # Total Absolute Neuts Lymphocytes # (Manual) Prolymphocyte # Reactive Lymphs # Total Abs Lymphocytes Monocytes # (Manual) Eosinophils # (Manual) Basophils # (Manual) Metamyelocytes # (Man) Myelocytes # (Manual) Promyelocytes # (Man) Blast Cells # (Man) Plasma Cell # (Manual) Other Cells # Nucleated RBCs # (Man) Hypersegmented Neuts Hyposegmented Neuts Hypogranular Neuts Large Granular Lymphs # Lrg Granular Lymphs Hairy Cells Smudge Cells Toxic Granulation Toxic Vacuolation Dohle Bodies Ricardo Rods Platelet Estimate Hypogranular Platelets Giant Platelets Platelet Satelliting RBC Morphology Polychromasia Hypochromasia Poikilocytosis Basophilic Stippling Anisocytosis Microcytosis Macrocytosis Spherocytes Pappenheimer Bodies Sickle Cells Target Cells Tear Drop Cells Ovalocytes Stomatocytes [place] Bodies Echinocytes Acanthocytes (Spur) Rouleaux RBC Agglutinates Schistocytes Peripher Smr Path Cons Sezary Cell Haptoglobin PT INR APTT PTT Ratio Fibrinogen D-Dimer Factor VIII Activity Sodium Potassium Chloride Carbon Dioxide Anion Gap BUN Creatinine Est Cr Clr Drug Dosing Est GFR ( Amer) Est GFR (Non-Af Amer) BUN/Creatinine Ratio Glucose POC Glucose 147 H 143 H Calcium Magnesium Total Bilirubin AST ALT Alkaline Phosphatase Ammonia 21.0 Lactate Dehydrogenase Total Creatine Kinase Total Protein Albumin Globulin Albumin/Globulin Ratio Acetaminophen Hepatitis A IgM Ab Pending Hep Bs Antigen Negative Hep B Core IgM Ab Pending Hepatitis C Antibody Negative Blood Parasites ID Blood Type Antibody Screen 01/19/24 01/20/24 01/20/24 20:16 04:54 04:58 WBC Cancelled RBC Cancelled Hgb Cancelled Hct Cancelled MCV Cancelled MCH Cancelled MCHC Cancelled RDW Std Deviation Cancelled RDW Coeff of [place] Cancelled Plt Count Cancelled MPV Cancelled Immature Gran % (Auto) Cancelled Neut % (Auto) Cancelled Lymph % (Auto) Cancelled [place] % (Auto) Cancelled Eos % (Auto) Cancelled Baso % (Auto) Cancelled Reticulocyte % (Auto) Neut # (Auto) Cancelled Lymph # (Auto) Cancelled [place] # (Auto) Cancelled Eos # (Auto) Cancelled Baso # (Auto) Cancelled Reticulocyte # Immature Gran # (Auto) Cancelled Absolute Nucleated RBC Cancelled Nucleated RBC % (auto) Cancelled Neutrophils % (Manual) Cancelled Band Neutrophils % Cancelled Lymphocytes % (Manual) Cancelled Prolymphocyte % Cancelled Reactive Lymphs % (Man) Cancelled Monocytes % (Manual) Cancelled Eosinophils % (Manual) Cancelled Basophils % (Manual) Cancelled Metamyelocytes % (Man) Cancelled Myelocytes % (Man) Cancelled Promyelocytes % (Man) Cancelled Blast Cells % (Manual) Cancelled Plasma Cell % (Manual) Cancelled Other Cells % Cancelled Nucleated RBC % Cancelled Neutrophils # (Manual) Cancelled Band Neutrophils # Cancelled Total Absolute Neuts Cancelled Lymphocytes # (Manual) Cancelled Prolymphocyte # Cancelled Reactive Lymphs # Cancelled Total Abs Lymphocytes Cancelled Monocytes # (Manual) Cancelled Eosinophils # (Manual) Cancelled Basophils # (Manual) Cancelled Metamyelocytes # (Man) Cancelled Myelocytes # (Manual) Cancelled Promyelocytes # (Man) Cancelled Blast Cells # (Man) Cancelled Plasma Cell # (Manual) Cancelled Other Cells # Cancelled Nucleated RBCs # (Man) Cancelled Hypersegmented Neuts Cancelled Hyposegmented Neuts Cancelled Hypogranular Neuts Cancelled Large Granular Lymphs Cancelled # Lrg Granular Lymphs Cancelled Hairy Cells Cancelled Smudge Cells Cancelled Toxic Granulation Cancelled Toxic Vacuolation Cancelled Dohle Bodies Cancelled Ricardo Rods Cancelled Platelet Estimate Cancelled Hypogranular Platelets Cancelled Giant Platelets Cancelled Platelet Satelliting Cancelled RBC Morphology Cancelled Polychromasia Cancelled Hypochromasia Cancelled Poikilocytosis Cancelled Basophilic Stippling Cancelled Anisocytosis Cancelled Microcytosis Cancelled Macrocytosis Cancelled Spherocytes Cancelled Pappenheimer Bodies Cancelled Sickle Cells Cancelled Target Cells Cancelled Tear Drop Cells Cancelled Ovalocytes Cancelled Stomatocytes Cancelled [place] Bodies Cancelled Echinocytes Cancelled Acanthocytes (Spur) Cancelled Rouleaux Cancelled RBC Agglutinates Cancelled Schistocytes Cancelled Peripher Smr Path Cons Sezary Cell Cancelled Haptoglobin Pending PT 87.2 H Cancelled INR > 9.5 H* Cancelled APTT 80 H Cancelled PTT Ratio 3.0 Cancelled Fibrinogen 140 L D-Dimer 2750 H* Factor VIII Activity Pending Sodium Cancelled Potassium Cancelled Chloride Cancelled Carbon Dioxide Cancelled Anion Gap Cancelled BUN Cancelled Creatinine Cancelled Est Cr Clr Drug Dosing Cancelled Est GFR ( Amer) Cancelled Est GFR (Non-Af Amer) Cancelled BUN/Creatinine Ratio Cancelled Glucose Cancelled POC Glucose 183 H Calcium Cancelled Magnesium Cancelled Total Bilirubin Cancelled AST Cancelled ALT Cancelled Alkaline Phosphatase Cancelled Ammonia Lactate Dehydrogenase Cancelled Total Creatine Kinase Total Protein Cancelled Albumin Cancelled Globulin Cancelled Albumin/Globulin Ratio Cancelled Acetaminophen Hepatitis A IgM Ab Hep Bs Antigen Hep B Core IgM Ab Hepatitis C Antibody Blood Parasites ID Cancelled Blood Type O Positive Antibody Screen NEGATIVE 01/20/24 01/20/24 01/20/24 05:48 05:48 05:48 WBC 7.04 RBC 3.19 L Hgb 9.9 L Hct 31.1 L MCV 97.5 MCH 31.0 MCHC 31.8 L RDW Std Deviation 59.2 H RDW Coeff of [place] 16.8 H Plt Count 68 L MPV 12.6 H Immature Gran % (Auto) 0.4 Neut % (Auto) 73.1 Lymph % (Auto) 12.4 [place] % (Auto) 12.2 Eos % (Auto) 1.8 Baso % (Auto) 0.1 Reticulocyte % (Auto) 2.92 H Cancelled Neut # (Auto) 5.14 Lymph # (Auto) 0.87 L [place] # (Auto) 0.86 H Eos # (Auto) 0.13 Baso # (Auto) 0.01 Reticulocyte # 0.090 Cancelled Immature Gran # (Auto) 0.03 Absolute Nucleated RBC Nucleated RBC % (auto) Neutrophils % (Manual) Band Neutrophils % Lymphocytes % (Manual) Prolymphocyte % Reactive Lymphs % (Man) Monocytes % (Manual) Eosinophils % (Manual) Basophils % (Manual) Metamyelocytes % (Man) Myelocytes % (Man) Promyelocytes % (Man) Blast Cells % (Manual) Plasma Cell % (Manual) Other Cells % Nucleated RBC % Neutrophils # (Manual) Band Neutrophils # Total Absolute Neuts Lymphocytes # (Manual) Prolymphocyte # Reactive Lymphs # Total Abs Lymphocytes Monocytes # (Manual) Eosinophils # (Manual) Basophils # (Manual) Metamyelocytes # (Man) Myelocytes # (Manual) Promyelocytes # (Man) Blast Cells # (Man) Plasma Cell # (Manual) Other Cells # Nucleated RBCs # (Man) Hypersegmented Neuts Hyposegmented Neuts Hypogranular Neuts Large Granular Lymphs # Lrg Granular Lymphs Hairy Cells Smudge Cells Toxic Granulation Toxic Vacuolation Dohle Bodies Ricardo Rods Platelet Estimate Hypogranular Platelets Giant Platelets Platelet Satelliting RBC Morphology Polychromasia 1+ Hypochromasia Poikilocytosis Basophilic Stippling Anisocytosis Microcytosis Macrocytosis Spherocytes Pappenheimer Bodies Sickle Cells Target Cells Tear Drop Cells Ovalocytes Stomatocytes [place] Bodies Echinocytes 1+ Acanthocytes (Spur) 1+ Rouleaux RBC Agglutinates Schistocytes Peripher Smr Path Cons Pending Sezary Cell Haptoglobin PT INR APTT PTT Ratio Fibrinogen D-Dimer Factor VIII Activity Sodium Potassium Chloride Carbon Dioxide Anion Gap BUN Creatinine Est Cr Clr Drug Dosing Est GFR ( Amer) Est GFR (Non-Af Amer) BUN/Creatinine Ratio Glucose POC Glucose Calcium Magnesium Total Bilirubin AST ALT Alkaline Phosphatase Ammonia Lactate Dehydrogenase Total Creatine Kinase Total Protein Albumin Globulin Albumin/Globulin Ratio Acetaminophen Hepatitis A IgM Ab Hep Bs Antigen Hep B Core IgM Ab Hepatitis C Antibody Blood Parasites ID Blood Type Antibody Screen 01/20/24 01/20/24 01/20/24 05:48 05:55 07:19 WBC RBC Hgb Hct MCV MCH MCHC RDW Std Deviation RDW Coeff of [place] Plt Count MPV Immature Gran % (Auto) Neut % (Auto) Lymph % (Auto) [place] % (Auto) Eos % (Auto) Baso % (Auto) Reticulocyte % (Auto) Neut # (Auto) Lymph # (Auto) [place] # (Auto) Eos # (Auto) Baso # (Auto) Reticulocyte # Immature Gran # (Auto) Absolute Nucleated RBC Nucleated RBC % (auto) Neutrophils % (Manual) Band Neutrophils % Lymphocytes % (Manual) Prolymphocyte % Reactive Lymphs % (Man) Monocytes % (Manual) Eosinophils % (Manual) Basophils % (Manual) Metamyelocytes % (Man) Myelocytes % (Man) Promyelocytes % (Man) Blast Cells % (Manual) Plasma Cell % (Manual) Other Cells % Nucleated RBC % Neutrophils # (Manual) Band Neutrophils # Total Absolute Neuts Lymphocytes # (Manual) Prolymphocyte # Reactive Lymphs # Total Abs Lymphocytes Monocytes # (Manual) Eosinophils # (Manual) Basophils # (Manual) Metamyelocytes # (Man) Myelocytes # (Manual) Promyelocytes # (Man) Blast Cells # (Man) Plasma Cell # (Manual) Other Cells # Nucleated RBCs # (Man) Hypersegmented Neuts Hyposegmented Neuts Hypogranular Neuts Large Granular Lymphs # Lrg Granular Lymphs Hairy Cells Smudge Cells Toxic Granulation Toxic Vacuolation Dohle Bodies Ricardo Rods Platelet Estimate Hypogranular Platelets Giant Platelets Platelet Satelliting RBC Morphology Polychromasia Hypochromasia Poikilocytosis Basophilic Stippling Anisocytosis Microcytosis Macrocytosis Spherocytes Pappenheimer Bodies Sickle Cells Target Cells Tear Drop Cells Ovalocytes Stomatocytes [place] Bodies Echinocytes Acanthocytes (Spur) Rouleaux RBC Agglutinates Schistocytes Peripher Smr Path Cons Cancelled Sezary Cell Haptoglobin PT INR APTT PTT Ratio Fibrinogen D-Dimer Factor VIII Activity Sodium 143 Potassium 4.6 Chloride 102 Carbon Dioxide 23 Anion Gap 18 H BUN 91 H Creatinine 3.59 H D Est Cr Clr Drug Dosing 16.7 Est GFR ( Amer) 16.8 Est GFR (Non-Af Amer) 14.5 BUN/Creatinine Ratio 25.3 H Glucose 115 H POC Glucose 128 H Calcium 8.8 Magnesium 2.3 Total Bilirubin 1.9 H AST 429 H ALT 280 H Alkaline Phosphatase 182 H Ammonia Lactate Dehydrogenase 676 H Total Creatine Kinase 109 Total Protein 6.3 Albumin 3.4 Globulin 2.9 Albumin/Globulin Ratio 1.2 Acetaminophen 13 Hepatitis A IgM Ab Hep Bs Antigen Hep B Core IgM Ab Hepatitis C Antibody Blood Parasites ID Blood Type Antibody Screen (4) Aortic stenosis Cardiac valve disease etiology: nonrheumatic Qualified Code(s): I35.0 - Nonrheumatic aortic (valve) stenosis
--- NOTE | 2024-01-20 10:13 | Nephrology Progress Note ---
Date of Service January 20, 2024 Assessment & Plan Admission and Anticipated Discharge Date Admission Date: January 17, 2024 Subjective Subjective Assessment & Plan (1) KARLENE (acute kidney injury): KARLENE is most likely related with ATN. is definitely not volume depleted and does not need aggressive IV hydration. In fact on his imaging he has evidence of fluid overload including CHF and some abdominal wall edema.. However we can continue the bicarb drip mainly to correct hyperkalemia at a lower rate of 75 mL/hour. LOW plt is chronic and unlikely he has KARLENE associated with Low PLT. No hydronephrosis on imaging but he does have chronic urinary retention and continue the [place]. Given his issues with worsening dementia and overall decline He will not be a candidate for dialysis if such need arise. I started the discussion with family but will continue the discussion. KARLENE continues to get worse. So I belive the worsening renal function is because of much worsened cardiac function. ECHO shows EF is only 20% now big drop. Worsening mental status, Renal function, liver function, brain function. he is terminal at this point and is actively dying. There is no medical therapeutics to reverse his medical issues. I explained this to family in detail. and daughter in agreement but one son still feels he can " fight the yepez" (2) Acute hyperkalemia: K got normal only after lasix and metolazone. He got AM dose of lasix. Co (3) Urinary retention: Continue oneill. No hydronephrosis on the imaging though (4) Delirium: (5) Acute on chronic heart failure with preserved ejection fraction (HFpEF): Still has e/o this. In fact now with KARLENE from ATN on top situation is even more difficult. No JOHN/ARB/Aldactone/Entresto for now Plan Case complexity high. Time spent 50 mins. bedside family update given to daughter and son in detail. Plan discussed with Dr Love about terminal issues and need of palliative med. he is clearly not a candidate for Dialysis with his current status. S---unable to obtain history secondary to Confusion/Delirium. however Son and at bedside. he is aspirating as per RN. Not much urine 450 ml yesterday with iv lasix. K is low normal though. Physical Exam Physical Exam: General Appearance: appears uncomfortable, delirious, intermittent agitation Neck: normal visual inspection JVD present Respiratory: normal respiratory effort, diminished breath sounds bilaterally. Cardiovascular: regular rate, rhythm, + murmur, 1+ BLE edema Abdomen/GI: normal bowel sounds, soft, nontender, no hepatosplenomegaly : Oneill Neurologic: PERRL, EOMI, accommodation nl, no face palsy, no dysarthria, CN's II-XI intact bilaterally and moves all extremities Psychiatric: Alert but not oriented, mumbling, restless Skin: no rashes, normal color, warm/dry Results & Data Vital Signs (Past 12 Hours) Vital Signs Temp Pulse Pulse Resp BP BP Pulse Ox 01/20/24 10:00 98 H 01/20/24 09:00 36.3 C L 94 H 16 129/84 98 01/20/24 08:43 36.2 C L 87 17 111/76 97 01/20/24 08:26 36.3 C L 92 H 16 121/79 100 01/20/24 07:42 01/20/24 07:15 36.3 C L 88 18 115/79 97 01/20/24 05:54 88 101/65 01/20/24 05:46 82 99/67 L 01/20/24 04:37 91 H 108/72 01/20/24 02:50 36.5 C 94 H 18 117/74 99 01/19/24 23:28 89 01/19/24 22:53 36.5 C 93 H 18 122/82 96 O2 Del Method 01/20/24 10:00 01/20/24 09:00 Room Air 01/20/24 08:43 Room Air 01/20/24 08:26 Room Air 01/20/24 07:42 Room Air 01/20/24 07:15 Room Air 01/20/24 05:54 01/20/24 05:46 01/20/24 04:37 01/20/24 02:50 Room Air 01/19/24 23:28 01/19/24 22:53 Room Air
[2024-01-20] MEDS: PANTOprazole 40 MG in SYRINGE 0 ML IV SCH (11:26)
--- NOTE | 2024-01-20 11:36 | Gastroenterology Progress Note ---
<Statement entered by Stephen Garcia MD - 01/20/24 17:37> Patient seen and examined. Case discussed with PA. Seen with multiple family members at bedside. Multiorgan system failure with poor prognosis. Patient is DNR and comfort care measures only being employed. [facility] Service will sign off. Date of Service January 20, 2024 Assessment & Plan (1) Delirium: (2) Transaminitis: Plan Given worsening INR as well as liver and renal function, I am concerned he may have a component of DIC. Would recommend hematology evaluation for further evaluation. I explained to the patient's family that at this point, it does not seem like his issues are primarily liver. Rather, it seems that his liver issues are secondary to another process that may be infectious or cardiovascular in nature. Review of chart after I had seen the patient earlier this morning, it now appears that family is looking into comfort measures. Admission and Anticipated Discharge Date Admission Date: January 17, 2024 Subjective Patient is still confused. His and daughter were present at bedside. He was given vit K but has had worsening of his INR, as well as liver functions, and renal functions. ammonia and hep panel unremarkable thus far. 01/20/24 AST 425, ALT 280, ALK phos 182, platelets 68, hgb 9.9. INR >9.5 Ammonia was 21 on 01/18. His echo has worsened. Physical Exam Physical Exam: patient was slightly combative making exam difficult. Gastrointestinal (Abdomen): normal bowel sounds, nontender, soft. Results & Data Results & Data Vital Signs (Past 12 Hours) Vital Signs Temp Pulse Pulse Resp BP BP Pulse Ox 01/20/24 11:11 97.3 F L 90 18 120/81 93 01/20/24 10:00 98 H 01/20/24 09:00 97.3 F L 94 H 16 129/84 98 01/20/24 08:43 97.2 F L 87 17 111/76 97 01/20/24 08:26 97.3 F L 92 H 16 121/79 100 01/20/24 07:42 01/20/24 07:15 97.3 F L 88 18 115/79 97 01/20/24 05:54 88 101/65 01/20/24 05:46 82 99/67 L 01/20/24 04:37 91 H 108/72 01/20/24 02:50 97.7 F 94 H 18 117/74 99 O2 Del Method 01/20/24 11:11 Room Air 01/20/24 10:00 01/20/24 09:00 Room Air 01/20/24 08:43 Room Air 01/20/24 08:26 Room Air 01/20/24 07:42 Room Air 01/20/24 07:15 Room Air 01/20/24 05:54 01/20/24 05:46 01/20/24 04:37 01/20/24 02:50 Room Air Coding Level of Care Code 07042 SUB INP/OBS CARE 08/04MIN Diagnoses Delirium R41.0 Transaminitis R74.01
[2024-01-20] MEDS ORDERED: LORazepam 1 MG in SYRINGE 0.25 ML IV PRN (13:04)
[2024-01-20] MEDS ORDERED: GLYCOPYRROLATE 0.2 MG/ML VIAL IV PRN (13:04)
[2024-01-20] MEDS ORDERED: SENNA 8.6 MG TAB PO PRN (13:26)
[2024-01-20] MEDS: HYDROmorphone INJ 0.5 MG/0.5 ML SYR IV PRN (14:55)
--- NOTE | 2024-01-20 14:56 | Palliative Care Consultation ---
Date of Consultation January 20, 2024 Assessment & Plan (1) Dyspnea and respiratory abnormalities: LAND CHECKER Orders written (2) Generalized pain: (3) Weakness generalized: (4) Advanced care planning/counseling discussion: Met with pt, and son at bedside for face to face ACP x 45min Complex discussion, later joined by dtr in law as well Questions re MSOF, adv HF and symptom mgt answered hospice discussed and reviewed, they do not want SNF; they have no hospice agency preference and indicate they would like home hospice when safe for dc advised and agreed we will start LAND CHECKER today and see how he does through the weekend. if stable for dc Tuesday, CM can coordinate hospice Son had many questions about financial/joint accounts/correction accounts and legal matters, advised to consult with mill tender warm up. (5) Encounter for hospice care discussion: I provided education about the hospice benefit: an interdisciplinary program offered by nurses, nurses aides, social workers, chaplains and a medical detail representative for patients with a terminal condition and a life expectancy of less than 6 months. This is covered by Medicare at 100%/no out of pocket expense to patient and all meds/supplies needed by patient for the reason they are on hospice are paid for/covered by hospice. The goal is assure quality of life of the patient in their home setting (home, correction, inpatient hospice setting) by providing symptoms management, psychosocial and spiritual support. However, they cannot offer 24 hours care and if the family is unable to provide that care, they will have to consider personal care with out of pocket cost vs. correction placement. We discussed the goals of hospice as a patient service and the goals of care; we discussed EOL trajectories and transitions maxx the emotional impact of realizing mortality as a concrete reality from prior abstract considerations. Pt was reassured that no matter where they are along this trajectory, they are not alone - their medical team will remain by their side through their journey. Discussed the pros/cons of accepting help when especially weakened and distressed by pain-which would also help provide relief/decrease caregiver burden/strain. (6) Palliative care by specialist: Discussed Palliative Medicine provides specialized medical care for patients with a serious illness. We offer a focus on quality of life through reduction of symptom burden/more control over their illness, for patients and their family. Palliative Medicine interventions can be given along with curative treatment. I specifically clarified we are not hospice, which is a visiting nurse service that focuses on care delivered at the very end of life. Plan As above Thank you for allowing us to participate in the ongoing care of this patient. Please page with any additional concerns. Rosetta Chen [facility] Director, Palliative Medicine History of Present Illness Reason for Consultation: goals of care, hospice Attending Physician: Meek Love MD History of Present Illness Moncho is an 88yo male admitted 01/17/2024 for AMS, KARLENE +hyperkalemia/K 6.2. 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 Complex PMH including systolic heart failure, aortic stenosis,paroxysmal A-fib on Eliquis, HFrEF, history of pacemaker placement, CAD (s/p 3vCABG), HTN, aortic valve stenosis, BPH, depression DM II, SIADH, dyslipidemia, hypothyroidism Echo 11/17/2023: moderate concentric LVH, mild global hypokinesis of the left ventricle, EF 45-50%, calcified aortic valve leaflets w/ restricted leaflet mobility and mild to moderate aortic stenosis -Repeat echocardiogram this admission showed worsening LV systolic function with an EF of 20 to 25%. There is moderate to severe global hypokinesis. Apical wall motion abnormality may reflect pacemaker activation. Mild to moderate aortic stenosis and regurgitation. Moderate MR/TR. KARLENE worsening liver failing not a candidate for aggressive escalation pt and family elected DNR/DNI Family do not want SNF they would like discussion of hospice Allergies Allergy/AdvReac Type Severity Reaction Status Date / Time iodine Allergy Severe DUE TO Verified 12/13/23 15:57 SHELLFISH ALLERGY-IODINATED DYE-UNKNOWN morphine Allergy Severe Anaphylaxis Verified 12/13/23 15:57 shellfish derived Allergy Severe ANAPHYLAXIS Verified 12/13/23 15:57 bee venom protein (honey bee) Allergy Intermediate EXTRA Verified 12/13/23 15:57 SWELLING AT SITES Penicillins Allergy Intermediate RASH Verified 12/13/23 15:57 Home Medications Medication Instructions Recorded Confirmed Type aspirin 81 mg tablet,delayed 81 mg PO QAM 07/21/19 01/17/24 History release atorvastatin 80 mg tablet 80 mg PO HS 07/21/19 01/17/24 History metformin 500 mg tablet 500 mg PO QAM 07/21/19 01/17/24 History pantoprazole 40 mg tablet,delayed 40 mg PO DAILYBB 07/21/19 01/17/24 History release nitroglycerin 0.4 mg sublingual 0.4 mg sublingual Q5M PRN Chest 05/31/21 01/17/24 History tablet Pain finasteride 5 mg tablet 5 mg PO QAM 11/29/22 01/17/24 History metoprolol succinate 25 mg 25 mg PO QAM 11/29/22 01/17/24 History tablet,extended release 24 hr apixaban 5 mg tablet (Eliquis) 5 mg PO Q12H #60 tabs 12/01/22 01/17/24 Rx acetaminophen 650 mg 1,300 mg PO Q8H PRN Pain 07/21/23 01/17/24 History tablet,extended release (Tylenol 8 Hour) escitalopram oxalate 10 mg tablet 10 mg PO QAM 07/21/23 01/17/24 History folic acid 1 mg tablet 1 mg PO QAM 11/14/23 01/17/24 History diclofenac sodium 1 % topical gel 2 g EXT Q6H PRN pain #100 grams 11/18/23 01/17/24 Rx (Voltaren Arthritis Pain) melatonin 3 mg tablet 6 mg (2 x 3 mg) PO HS #60 tabs 12/23/23 01/17/24 Rx furosemide 80 mg tablet 80 mg PO QAM 01/17/24 01/17/24 History mirtazapine 15 mg tablet 15 mg PO HS 01/17/24 01/17/24 History potassium chloride 20 mEq 20 meq PO QAM 01/17/24 01/17/24 History tablet,extended release Patient History Medical History HFrEF (heart failure with reduced ejection fraction) CHF (congestive heart failure) Anemia Ground-level fall ASCVD (arteriosclerotic cardiovascular disease) Closed right hip fracture Compression fracture of T12 vertebra Compression fracture of lumbar vertebra Labile blood pressure SIADH (syndrome of inappropriate ADH production) COVID-19 Nausea Coronary artery disease Supratherapeutic INR Atypical chest pain Lumbar stenosis Paroxysmal atrial fibrillation Surgical History History of coronary artery bypass graft History of carpal tunnel surgery "bilateral" S/P total hip arthroplasty S/P total knee arthroplasty 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; [place]" History of percutaneous coronary intervention S/P lumbar microdiscectomy H/O heart artery stent Family History Father Coronary heart disease Social History Smoking Status: Never smoker Second Hand Exposure: No; Do You Dip or Chew Tobacco: No; Hx Alcohol Use: No Hx Substance Use: No Preferred Language: Kazakh Communication Ability: Effective Kiln Setter Required: No Beliefs That Will Affect Care: None marital status: Current Living Situation: Spouse and Family current occupational status: retired Other Information That Helps Us Care for You: No Feels Safe at Home: Yes Safety Concerns: Feels Safe At This Time Assistive Devices: Walker Review of Systems Review of Systems: All systems reviewed & are unremarkable except as noted in Subjective Physical Exam Constitutional: + thin, + frail appearing and + lethargi c Eyes: PERRL, conjunctivae normal, anicteric sclerae Neck: trachea midline Respiratory: + respiratory distress and + uses access ory muscles Auscultation: + diminished lung sounds and + crackles Cardiovascular: Rate/Rhythm: + irregularly irregular Gastrointestinal (Abdomen): Inspection/Auscultation: + scaphoid Musculoskeletal: gen weakness Skin: pale, cool Neurologic: intermitt lethargy Results & Data Vital Signs (Past 12 Hours) Vital Signs Temp Pulse Pulse Resp BP BP Pulse Ox 01/20/24 11:11 36.3 C L 90 18 120/81 93 01/20/24 10:00 98 H 01/20/24 09:00 36.3 C L 94 H 16 129/84 98 01/20/24 08:43 36.2 C L 87 17 111/76 97 01/20/24 08:26 36.3 C L 92 H 16 121/79 100 01/20/24 07:42 01/20/24 07:15 36.3 C L 88 18 115/79 97 01/20/24 05:54 88 101/65 01/20/24 05:46 82 99/67 L 01/20/24 04:37 91 H 108/72 01/20/24 02:50 36.5 C 94 H 18 117/74 99 O2 Del Method 01/20/24 11:11 Room Air 01/20/24 10:00 01/20/24 09:00 Room Air 01/20/24 08:43 Room Air 01/20/24 08:26 Room Air 01/20/24 07:42 Room Air 01/20/24 07:15 Room Air 01/20/24 05:54 01/20/24 05:46 01/20/24 04:37 01/20/24 02:50 Room Air Laboratory Results 01/20/24 01/20/24 01/20/24 Range/Units 11:08 07:19 05:55 WBC (4.8-10.8) K/ul RBC (4.70-6.10) M/uL Hgb (14.0-18.0) g/dl POC Hgb (14.0-18.0) g/dl Hct (42.0-52.0) % POC Hct (42-52) % MCV (80.0-100.0) fL MCH (25.0-34.0) pg MCHC (32.0-36.0) g/dL RDW Std Deviation (36.4-46.3) fL RDW Coeff of Geronimo (11.5-14.5) % Plt Count (130-400) K/uL MPV (9.4-12.4) fL Immature Gran % (Auto) % Neut % (Auto) % Lymph % (Auto) % Overton % (Auto) % Eos % (Auto) % Baso % (Auto) % Reticulocyte % (Auto) (0.50-2.00) % Neut # (Auto) (1.40-6.50) K/uL Lymph # (Auto) (1.20-3.40) K/uL Overton # (Auto) (0.11-0.59) K/uL Eos # (Auto) (0.00-0.50) K/uL Baso # (Auto) (0.00-0.20) K/uL Reticulocyte # (0.020-0.100) 10^6/uL Immature Gran # (Auto) (0.01-0.20) K/uL Absolute Nucleated RBC (0.00-0.12) K/uL Nucleated RBC % (auto) % Neutrophils % (Manual) Band Neutrophils % Lymphocytes % (Manual) Prolymphocyte % Reactive Lymphs % (Man) Monocytes % (Manual) Eosinophils % (Manual) Basophils % (Manual) Metamyelocytes % (Man) Myelocytes % (Man) Promyelocytes % (Man) Blast Cells % (Manual) Plasma Cell % (Manual) Other Cells % Nucleated RBC % Neutrophils # (Manual) Band Neutrophils # Total Absolute Neuts Lymphocytes # (Manual) Prolymphocyte # Reactive Lymphs # Total Abs Lymphocytes Monocytes # (Manual) Eosinophils # (Manual) Basophils # (Manual) Metamyelocytes # (Man) Myelocytes # (Manual) Promyelocytes # (Man) Blast Cells # (Man) Plasma Cell # (Manual) Other Cells # Nucleated RBCs # (Man) Hypersegmented Neuts Hyposegmented Neuts Hypogranular Neuts Large Granular Lymphs # Lrg Granular Lymphs Hairy Cells Smudge Cells Toxic Granulation Toxic Vacuolation Dohle Bodies Ricardo Rods Platelet Estimate (Normal) Hypogranular Platelets Giant Platelets Platelet Satelliting RBC Morphology Polychromasia Hypochromasia Poikilocytosis Basophilic Stippling Anisocytosis Microcytosis Macrocytosis Spherocytes Pappenheimer Bodies Sickle Cells Target Cells Tear Drop Cells Ovalocytes Stomatocytes Buenrostro-Groton Bodies Echinocytes Acanthocytes (Spur) Rouleaux RBC Agglutinates Schistocytes Peripher Smr Path Cons Sezary Cell Haptoglobin PT INR APTT (21-31) Seconds PTT Ratio Fibrinogen (184-400) mg/dl D-Dimer (0-500) ug/L FEU Factor VIII Activity POC Sodium (135-144) mmol/L Sodium (136-145) mmol/L POC Potassium (3.3-5.0) mmol/L Potassium POC Chloride (101-112) mmol/L Chloride (98-107) mmol/L Carbon Dioxide (21-32) mmol/L POC Total CO2 (24-31) mmol/L Anion Gap (3-11) POC Anion Gap (16-25) mmol/L POC BUN (7-18) mg/dl BUN (6-23) mg/dl Creatinine (0.6-1.4) mg/dl POC Creatinine (0.6-1.3) mg/dl Est Cr Clr Drug Dosing Est GFR ( Amer) ml/min Est GFR (Non-Af Amer) ml/min BUN/Creatinine Ratio (10-20) Glucose (70-99(Fasting)) mg/dl POC Glucose 141 H 128 H (70-99) mg/dl POC Glucose (other) (70-99) mg/dl Calcium (8.6-10.3) mg/dl POC Ioniz Calcium Rossi (1.12-1.32) mmol/l Phosphorus (2.5-4.9) mg/dl Magnesium (1.7-2.4) mg/dl Total Bilirubin (0.2-1.0) mg/dl AST ALT (7-52) U/L Alkaline Phosphatase (34-104) U/L Ammonia (18-72) umol/L Lactate Dehydrogenase Total Creatine Kinase (30-223) U/L Troponin I High Sens (0-20) pg/ml B-Natriuretic Peptide (0-100) pg/ml Total Protein (6.0-8.3) gm/dl Albumin (3.4-5.0) gm/dl Globulin (2.5-4.0) gm/dl Albumin/Globulin Ratio (0.9-2) Lipase (11-82) U/L TSH (0.300-4.500) uIu/ml Free T4 (0.61-1.60) ng/dl Urine Color Urine Appearance (Clear) Urine pH (4.5-7.5) Ur Specific [place] (1.000-1.030) Urine Protein (Negative) Urine Glucose (UA) (Negative) Urine Ketones (Negative) Urine Blood (Negative) Urine Nitrite (Negative) Urine Bilirubin (Negative) Urine Urobilinogen (Negative) Ur Leukocyte Esterase (Negative) Urine WBC (Auto) (0-5) /hpf Urine RBC (Auto) (0-2) /hpf U Hyaline Cast (Auto) (0-2) /lpf U Epithel Cells (Auto) (0-2) /hpf Urine Bacteria (Auto) (None Seen) Hyaline Casts (None Presnt) /lpf Granular Casts (None Prsent) /lpf Acetaminophen 13 (10-30) ug/ml Anaplasma Smear Babesia Smear Babesia microti DNA PCR Lyme Disease Screen (Negative) Lyme Tier 2 IgG Confirm (Negative) Lyme Tier 2 IgM Confirm (Negative) Hepatitis A IgM Ab Hep Bs Antigen (Negative) Hep B Core IgM Ab Hepatitis C Antibody (Negative) Blood Parasites ID Blood Type Antibody Screen 01/20/24 01/20/24 01/20/24 Range/Units 05:48 05:48 05:48 WBC (4.8-10.8) K/ul RBC (4.70-6.10) M/uL Hgb (14.0-18.0) g/dl POC Hgb (14.0-18.0) g/dl Hct (42.0-52.0) % POC Hct (42-52) % MCV (80.0-100.0) fL MCH (25.0-34.0) pg MCHC (32.0-36.0) g/dL RDW Std Deviation (36.4-46.3) fL RDW Coeff of Geronimo (11.5-14.5) % Plt Count (130-400) K/uL MPV (9.4-12.4) fL Immature Gran % (Auto) % Neut % (Auto) % Lymph % (Auto) % Overton % (Auto) % Eos % (Auto) % Baso % (Auto) % Reticulocyte % (Auto) Cancelled (0.50-2.00) % Neut # (Auto) 5.14 (1.40-6.50) K/uL Lymph # (Auto) 0.87 L (1.20-3.40) K/uL Overton # (Auto) 0.86 H (0.11-0.59) K/uL Eos # (Auto) 0.13 (0.00-0.50) K/uL Baso # (Auto) 0.01 (0.00-0.20) K/uL Reticulocyte # Cancelled 0.090 (0.020-0.100) 10^6/uL Immature Gran # (Auto) 0.03 (0.01-0.20) K/uL Absolute Nucleated RBC (0.00-0.12) K/uL Nucleated RBC % (auto) % Neutrophils % (Manual) Band Neutrophils % Lymphocytes % (Manual) Prolymphocyte % Reactive Lymphs % (Man) Monocytes % (Manual) Eosinophils % (Manual) Basophils % (Manual) Metamyelocytes % (Man) Myelocytes % (Man) Promyelocytes % (Man) Blast Cells % (Manual) Plasma Cell % (Manual) Other Cells % Nucleated RBC % Neutrophils # (Manual) Band Neutrophils # Total Absolute Neuts Lymphocytes # (Manual) Prolymphocyte # Reactive Lymphs # Total Abs Lymphocytes Monocytes # (Manual) Eosinophils # (Manual) Basophils # (Manual) Metamyelocytes # (Man) Myelocytes # (Manual) Promyelocytes # (Man) Blast Cells # (Man) Plasma Cell # (Manual) Other Cells # Nucleated RBCs # (Man) Hypersegmented Neuts Hyposegmented Neuts Hypogranular Neuts Large Granular Lymphs # Lrg Granular Lymphs Hairy Cells Smudge Cells Toxic Granulation Toxic Vacuolation Dohle Bodies Ricardo Rods Platelet Estimate (Normal) Hypogranular Platelets Giant Platelets Platelet Satelliting RBC Morphology Polychromasia 1+ Hypochromasia Poikilocytosis Basophilic Stippling Anisocytosis Microcytosis Macrocytosis Spherocytes Pappenheimer Bodies Sickle Cells Target Cells Tear Drop Cells Ovalocytes Stomatocytes Buenrostro-Groton Bodies Echinocytes 1+ Acanthocytes (Spur) 1+ Rouleaux RBC Agglutinates Schistocytes Peripher Smr Path Cons Cancelled Sezary Cell Haptoglobin PT INR APTT (21-31) Seconds PTT Ratio Fibrinogen (184-400) mg/dl D-Dimer (0-500) ug/L FEU Factor VIII Activity POC Sodium (135-144) mmol/L Sodium 143 (136-145) mmol/L POC Potassium (3.3-5.0) mmol/L Potassium 4.6 POC Chloride (101-112) mmol/L Chloride 102 (98-107) mmol/L Carbon Dioxide 23 (21-32) mmol/L POC Total CO2 (24-31) mmol/L Anion Gap 18 H (3-11) POC Anion Gap (16-25) mmol/L POC BUN (7-18) mg/dl BUN 91 H (6-23) mg/dl Creatinine 3.59 H D (0.6-1.4) mg/dl POC Creatinine (0.6-1.3) mg/dl Est Cr Clr Drug Dosing 16.7 Est GFR ( Amer) 16.8 ml/min Est GFR (Non-Af Amer) 14.5 ml/min BUN/Creatinine Ratio 25.3 H (10-20) Glucose 115 H (70-99(Fasting)) mg/dl POC Glucose (70-99) mg/dl POC Glucose (other) (70-99) mg/dl Calcium 8.8 (8.6-10.3) mg/dl POC Ioniz Calcium Rossi (1.12-1.32) mmol/l Phosphorus (2.5-4.9) mg/dl Magnesium 2.3 (1.7-2.4) mg/dl Total Bilirubin 1.9 H (0.2-1.0) mg/dl AST 429 H ALT 280 H (7-52) U/L Alkaline Phosphatase 182 H (34-104) U/L Ammonia (18-72) umol/L Lactate Dehydrogenase 676 H Total Creatine Kinase 109 (30-223) U/L Troponin I High Sens (0-20) pg/ml B-Natriuretic Peptide (0-100) pg/ml Total Protein 6.3 (6.0-8.3) gm/dl Albumin 3.4 (3.4-5.0) gm/dl Globulin 2.9 (2.5-4.0) gm/dl Albumin/Globulin Ratio 1.2 (0.9-2) Lipase (11-82) U/L TSH (0.300-4.500) uIu/ml Free T4 (0.61-1.60) ng/dl Urine Color Urine Appearance (Clear) Urine pH (4.5-7.5) Ur Specific [place] (1.000-1.030) Urine Protein (Negative) Urine Glucose (UA) (Negative) Urine Ketones (Negative) Urine Blood (Negative) Urine Nitrite (Negative) Urine Bilirubin (Negative) Urine Urobilinogen (Negative) Ur Leukocyte Esterase (Negative) Urine WBC (Auto) (0-5) /hpf Urine RBC (Auto) (0-2) /hpf U Hyaline Cast (Auto) (0-2) /lpf U Epithel Cells (Auto) (0-2) /hpf Urine Bacteria (Auto) (None Seen) Hyaline Casts (None Presnt) /lpf Granular Casts (None Prsent) /lpf Acetaminophen (10-30) ug/ml Anaplasma Smear Babesia Smear Babesia microti DNA PCR Lyme Disease Screen (Negative) Lyme Tier 2 IgG Confirm (Negative) Lyme Tier 2 IgM Confirm (Negative) Hepatitis A IgM Ab Hep Bs Antigen (Negative) Hep B Core IgM Ab Hepatitis C Antibody (Negative) Blood Parasites ID Blood Type Antibody Screen 01/20/24 01/20/24 01/20/24 Range/Units 05:48 04:58 04:54 WBC 7.04 Cancelled (4.8-10.8) K/ul RBC 3.19 L Cancelled (4.70-6.10) M/uL Hgb 9.9 L Cancelled (14.0-18.0) g/dl POC Hgb (14.0-18.0) g/dl Hct 31.1 L Cancelled (42.0-52.0) % POC Hct (42-52) % MCV 97.5 Cancelled (80.0-100.0) fL MCH 31.0 Cancelled (25.0-34.0) pg MCHC 31.8 L Cancelled (32.0-36.0) g/dL RDW Std Deviation 59.2 H Cancelled (36.4-46.3) fL RDW Coeff of Geronimo 16.8 H Cancelled (11.5-14.5) % Plt Count 68 L Cancelled (130-400) K/uL MPV 12.6 H Cancelled (9.4-12.4) fL Immature Gran % (Auto) 0.4 Cancelled % Neut % (Auto) 73.1 Cancelled % Lymph % (Auto) 12.4 Cancelled % Overton % (Auto) 12.2 Cancelled % Eos % (Auto) 1.8 Cancelled % Baso % (Auto) 0.1 Cancelled % Reticulocyte % (Auto) 2.92 H (0.50-2.00) % Neut # (Auto) Cancelled (1.40-6.50) K/uL Lymph # (Auto) Cancelled (1.20-3.40) K/uL [place] # (Auto) Cancelled (0.11-0.59) K/uL Eos # (Auto) Cancelled (0.00-0.50) K/uL Baso # (Auto) Cancelled (0.00-0.20) K/uL Reticulocyte # (0.020-0.100) 10^6/uL Immature Gran # (Auto) Cancelled (0.01-0.20) K/uL Absolute Nucleated RBC Cancelled (0.00-0.12) K/uL Nucleated RBC % (auto) Cancelled % Neutrophils % (Manual) Cancelled Band Neutrophils % Cancelled Lymphocytes % (Manual) Cancelled Prolymphocyte % Cancelled Reactive Lymphs % (Man) Cancelled Monocytes % (Manual) Cancelled Eosinophils % (Manual) Cancelled Basophils % (Manual) Cancelled Metamyelocytes % (Man) Cancelled Myelocytes % (Man) Cancelled Promyelocytes % (Man) Cancelled Blast Cells % (Manual) Cancelled Plasma Cell % (Manual) Cancelled Other Cells % Cancelled Nucleated RBC % Cancelled Neutrophils # (Manual) Cancelled Band Neutrophils # Cancelled Total Absolute Neuts Cancelled Lymphocytes # (Manual) Cancelled Prolymphocyte # Cancelled Reactive Lymphs # Cancelled Total Abs Lymphocytes Cancelled Monocytes # (Manual) Cancelled Eosinophils # (Manual) Cancelled Basophils # (Manual) Cancelled Metamyelocytes # (Man) Cancelled Myelocytes # (Manual) Cancelled Promyelocytes # (Man) Cancelled Blast Cells # (Man) Cancelled Plasma Cell # (Manual) Cancelled Other Cells # Cancelled Nucleated RBCs # (Man) Cancelled Hypersegmented Neuts Cancelled Hyposegmented Neuts Cancelled Hypogranular Neuts Cancelled Large Granular Lymphs Cancelled # Lrg Granular Lymphs Cancelled Hairy Cells Cancelled Smudge Cells Cancelled Toxic Granulation Cancelled Toxic Vacuolation Cancelled Dohle Bodies Cancelled Ricardo Rods Cancelled Platelet Estimate Cancelled (Normal) Hypogranular Platelets Cancelled Giant Platelets Cancelled Platelet Satelliting Cancelled RBC Morphology Cancelled Polychromasia Cancelled Hypochromasia Cancelled Poikilocytosis Cancelled Basophilic Stippling Cancelled Anisocytosis Cancelled Microcytosis Cancelled Macrocytosis Cancelled Spherocytes Cancelled Pappenheimer Bodies Cancelled Sickle Cells Cancelled Target Cells Cancelled Tear Drop Cells Cancelled Ovalocytes Cancelled Stomatocytes Cancelled Buenrostro-Groton Bodies Cancelled Echinocytes Cancelled Acanthocytes (Spur) Cancelled Rouleaux Cancelled RBC Agglutinates Cancelled Schistocytes Cancelled Peripher Smr Path Cons Sezary Cell Cancelled Haptoglobin Pending PT Cancelled 87.2 H INR Cancelled > 9.5 H* APTT Cancelled 80 H (21-31) Seconds PTT Ratio Cancelled 3.0 Fibrinogen 140 L (184-400) mg/dl D-Dimer 2750 H* (0-500) ug/L FEU Factor VIII Activity Pending POC Sodium (135-144) mmol/L Sodium Cancelled (136-145) mmol/L POC Potassium (3.3-5.0) mmol/L Potassium Cancelled POC Chloride (101-112) mmol/L Chloride Cancelled (98-107) mmol/L Carbon Dioxide Cancelled (21-32) mmol/L POC Total CO2 (24-31) mmol/L Anion Gap Cancelled (3-11) POC Anion Gap (16-25) mmol/L POC BUN (7-18) mg/dl BUN Cancelled (6-23) mg/dl Creatinine Cancelled (0.6-1.4) mg/dl POC Creatinine (0.6-1.3) mg/dl Est Cr Clr Drug Dosing Cancelled Est GFR ( Amer) Cancelled ml/min Est GFR (Non-Af Amer) Cancelled ml/min BUN/Creatinine Ratio Cancelled (10-20) Glucose Cancelled (70-99(Fasting)) mg/dl POC Glucose (70-99) mg/dl POC Glucose (other) (70-99) mg/dl Calcium Cancelled (8.6-10.3) mg/dl POC Ioniz Calcium Rossi (1.12-1.32) mmol/l Phosphorus (2.5-4.9) mg/dl Magnesium Cancelled (1.7-2.4) mg/dl Total Bilirubin Cancelled (0.2-1.0) mg/dl AST Cancelled ALT Cancelled (7-52) U/L Alkaline Phosphatase Cancelled (34-104) U/L Ammonia (18-72) umol/L Lactate Dehydrogenase Cancelled Total Creatine Kinase (30-223) U/L Troponin I High Sens (0-20) pg/ml B-Natriuretic Peptide (0-100) pg/ml Total Protein Cancelled (6.0-8.3) gm/dl Albumin Cancelled (3.4-5.0) gm/dl Globulin Cancelled (2.5-4.0) gm/dl Albumin/Globulin Ratio Cancelled (0.9-2) Lipase (11-82) U/L TSH (0.300-4.500) uIu/ml Free T4 (0.61-1.60) ng/dl Urine Color Urine Appearance (Clear) Urine pH (4.5-7.5) Ur Specific [place] (1.000-1.030) Urine Protein (Negative) Urine Glucose (UA) (Negative) Urine Ketones (Negative) Urine Blood (Negative) Urine Nitrite (Negative) Urine Bilirubin (Negative) Urine Urobilinogen (Negative) Ur Leukocyte Esterase (Negative) Urine WBC (Auto) (0-5) /hpf Urine RBC (Auto) (0-2) /hpf U Hyaline Cast (Auto) (0-2) /lpf U Epithel Cells (Auto) (0-2) /hpf Urine Bacteria (Auto) (None Seen) Hyaline Casts (None Presnt) /lpf Granular Casts (None Prsent) /lpf Acetaminophen (10-30) ug/ml Anaplasma Smear Babesia Smear Babesia microti DNA PCR Lyme Disease Screen (Negative) Lyme Tier 2 IgG Confirm (Negative) Lyme Tier 2 IgM Confirm (Negative) Hepatitis A IgM Ab Hep Bs Antigen (Negative) Hep B Core IgM Ab Hepatitis C Antibody (Negative) Blood Parasites ID Cancelled Blood Type O Positive Antibody Screen NEGATIVE 01/19/24 01/19/24 01/19/24 Range/Units 20:16 16:13 16:04 WBC (4.8-10.8) K/ul RBC (4.70-6.10) M/uL Hgb (14.0-18.0) g/dl POC Hgb (14.0-18.0) g/dl Hct (42.0-52.0) % POC Hct (42-52) % MCV (80.0-100.0) fL MCH (25.0-34.0) pg MCHC (32.0-36.0) g/dL RDW Std Deviation (36.4-46.3) fL RDW Coeff of [place]eron[place] (11.5-14.5) % Plt Count (130-400) K/uL MPV (9.4-12.4) fL Immature Gran % (Auto) % Neut % (Auto) % Lymph % (Auto) % [place] % (Auto) % Eos % (Auto) % Baso % (Auto) % Reticulocyte % (Auto) (0.50-2.00) % Neut # (Auto) (1.40-6.50) K/uL Lymph # (Auto) (1.20-3.40) K/uL [place] # (Auto) (0.11-0.59) K/uL Eos # (Auto) (0.00-0.50) K/uL Baso # (Auto) (0.00-0.20) K/uL Reticulocyte # (0.020-0.100) 10^6/uL Immature Gran # (Auto) (0.01-0.20) K/uL Absolute Nucleated RBC (0.00-0.12) K/uL Nucleated RBC % (auto) % Neutrophils % (Manual) Band Neutrophils % Lymphocytes % (Manual) Prolymphocyte % Reactive Lymphs % (Man) Monocytes % (Manual) Eosinophils % (Manual) Basophils % (Manual) Metamyelocytes % (Man) Myelocytes % (Man) Promyelocytes % (Man) Blast Cells % (Manual) Plasma Cell % (Manual) Other Cells % Nucleated RBC % Neutrophils # (Manual) Band Neutrophils # Total Absolute Neuts Lymphocytes # (Manual) Prolymphocyte # Reactive Lymphs # Total Abs Lymphocytes Monocytes # (Manual) Eosinophils # (Manual) Basophils # (Manual) Metamyelocytes # (Man) Myelocytes # (Manual) Promyelocytes # (Man) Blast Cells # (Man) Plasma Cell # (Manual) Other Cells # Nucleated RBCs # (Man) Hypersegmented Neuts Hyposegmented Neuts Hypogranular Neuts Large Granular Lymphs # Lrg Granular Lymphs Hairy Cells Smudge Cells Toxic Granulation Toxic Vacuolation Dohle Bodies Ricardo Rods Platelet Estimate (Normal) Hypogranular Platelets Giant Platelets Platelet Satelliting RBC Morphology Polychromasia Hypochromasia Poikilocytosis Basophilic Stippling Anisocytosis Microcytosis Macrocytosis Spherocytes Pappenheimer Bodies Sickle Cells Target Cells Tear Drop Cells Ovalocytes Stomatocytes Buenrostro-Groton Bodies Echinocytes Acanthocytes (Spur) Rouleaux RBC Agglutinates Schistocytes Peripher Smr Path Cons Sezary Cell Haptoglobin PT INR APTT (21-31) Seconds PTT Ratio Fibrinogen (184-400) mg/dl D-Dimer (0-500) ug/L FEU Factor VIII Activity POC Sodium (135-144) mmol/L Sodium (136-145) mmol/L POC Potassium (3.3-5.0) mmol/L Potassium POC Chloride (101-112) mmol/L Chloride (98-107) mmol/L Carbon Dioxide (21-32) mmol/L POC Total CO2 (24-31) mmol/L Anion Gap (3-11) POC Anion Gap (16-25) mmol/L POC BUN (7-18) mg/dl BUN (6-23) mg/dl Creatinine (0.6-1.4) mg/dl POC Creatinine (0.6-1.3) mg/dl Est Cr Clr Drug Dosing Est GFR ( Amer) ml/min Est GFR (Non-Af Amer) ml/min BUN/Creatinine Ratio (10-20) Glucose (70-99(Fasting)) mg/dl POC Glucose 183 H 143 H (70-99) mg/dl POC Glucose (other) (70-99) mg/dl Calcium (8.6-10.3) mg/dl POC Ioniz Calcium Rossi (1.12-1.32) mmol/l Phosphorus (2.5-4.9) mg/dl Magnesium (1.7-2.4) mg/dl Total Bilirubin (0.2-1.0) mg/dl AST ALT (7-52) U/L Alkaline Phosphatase (34-104) U/L Ammonia 21.0 (18-72) umol/L Lactate Dehydrogenase Total Creatine Kinase (30-223) U/L Troponin I High Sens (0-20) pg/ml B-Natriuretic Peptide (0-100) pg/ml Total Protein (6.0-8.3) gm/dl Albumin (3.4-5.0) gm/dl Globulin (2.5-4.0) gm/dl Albumin/Globulin Ratio (0.9-2) Lipase (11-82) U/L TSH (0.300-4.500) uIu/ml Free T4 (0.61-1.60) ng/dl Urine Color Urine Appearance (Clear) Urine pH (4.5-7.5) Ur Specific [place] (1.000-1.030) Urine Protein (Negative) Urine Glucose (UA) (Negative) Urine Ketones (Negative) Urine Blood (Negative) Urine Nitrite (Negative) Urine Bilirubin (Negative) Urine Urobilinogen (Negative) Ur Leukocyte Esterase (Negative) Urine WBC (Auto) (0-5) /hpf Urine RBC (Auto) (0-2) /hpf U Hyaline Cast (Auto) (0-2) /lpf U Epithel Cells (Auto) (0-2) /hpf Urine Bacteria (Auto) (None Seen) Hyaline Casts (None Presnt) /lpf Granular Casts (None Prsent) /lpf Acetaminophen (10-30) ug/ml Anaplasma Smear Babesia Smear Babesia microti DNA PCR Lyme Disease Screen (Negative) Lyme Tier 2 IgG Confirm (Negative) Lyme Tier 2 IgM Confirm (Negative) Hepatitis A IgM Ab Pending Hep Bs Antigen Negative (Negative) Hep B Core IgM Ab Pending Hepatitis C Antibody Negative (Negative) Blood Parasites ID Blood Type Antibody Screen 01/19/24 01/19/24 01/19/24 Range/Units 11:03 07:16 06:17 WBC 8.58 (4.8-10.8) K/ul RBC 3.41 L (4.70-6.10) M/uL Hgb 10.8 L (14.0-18.0) g/dl POC Hgb (14.0-18.0) g/dl Hct 33.9 L (42.0-52.0) % POC Hct (42-52) % MCV 99.4 (80.0-100.0) fL MCH 31.7 (25.0-34.0) pg MCHC 31.9 L (32.0-36.0) g/dL RDW Std Deviation 61.2 H (36.4-46.3) fL RDW Coeff of Geronimo 17.2 H (11.5-14.5) % Plt Count 77 L (130-400) K/uL MPV 12.3 (9.4-12.4) fL Immature Gran % (Auto) % Neut % (Auto) % Lymph % (Auto) % [place] % (Auto) % Eos % (Auto) % Baso % (Auto) % Reticulocyte % (Auto) (0.50-2.00) % Neut # (Auto) (1.40-6.50) K/uL Lymph # (Auto) (1.20-3.40) K/uL [place] # (Auto) (0.11-0.59) K/uL Eos # (Auto) (0.00-0.50) K/uL Baso # (Auto) (0.00-0.20) K/uL Reticulocyte # (0.020-0.100) 10^6/uL Immature Gran # (Auto) (0.01-0.20) K/uL Absolute Nucleated RBC 0.02 (0.00-0.12) K/uL Nucleated RBC % (auto) 0.2 % Neutrophils % (Manual) Band Neutrophils % Lymphocytes % (Manual) Prolymphocyte % Reactive Lymphs % (Man) Monocytes % (Manual) Eosinophils % (Manual) Basophils % (Manual) Metamyelocytes % (Man) Myelocytes % (Man) Promyelocytes % (Man) Blast Cells % (Manual) Plasma Cell % (Manual) Other Cells % Nucleated RBC % Neutrophils # (Manual) Band Neutrophils # Total Absolute Neuts Lymphocytes # (Manual) Prolymphocyte # Reactive Lymphs # Total Abs Lymphocytes Monocytes # (Manual) Eosinophils # (Manual) Basophils # (Manual) Metamyelocytes # (Man) Myelocytes # (Manual) Promyelocytes # (Man) Blast Cells # (Man) Plasma Cell # (Manual) Other Cells # Nucleated RBCs # (Man) Hypersegmented Neuts Hyposegmented Neuts Hypogranular Neuts Large Granular Lymphs # Lrg Granular Lymphs Hairy Cells Smudge Cells Toxic Granulation Toxic Vacuolation Dohle Bodies Ricardo Rods Platelet Estimate Decreased L (Normal) Hypogranular Platelets Giant Platelets Platelet Satelliting RBC Morphology Polychromasia Hypochromasia Poikilocytosis Basophilic Stippling Anisocytosis Microcytosis Macrocytosis Spherocytes Pappenheimer Bodies Sickle Cells Target Cells Tear Drop Cells Ovalocytes Stomatocytes Buenrostro-Groton Bodies Echinocytes Acanthocytes (Spur) Rouleaux RBC Agglutinates Schistocytes Peripher Smr Path Cons Sezary Cell Haptoglobin PT 62.0 H INR 6.8 H* APTT (21-31) Seconds PTT Ratio Fibrinogen (184-400) mg/dl D-Dimer (0-500) ug/L FEU Factor VIII Activity POC Sodium (135-144) mmol/L Sodium 141 (136-145) mmol/L POC Potassium (3.3-5.0) mmol/L Potassium 5.1 POC Chloride (101-112) mmol/L Chloride 100 (98-107) mmol/L Carbon Dioxide 23 (21-32) mmol/L POC Total CO2 (24-31) mmol/L Anion Gap 18 H (3-11) POC Anion Gap (16-25) mmol/L POC BUN (7-18) mg/dl BUN 79 H (6-23) mg/dl Creatinine 3.14 H (0.6-1.4) mg/dl POC Creatinine (0.6-1.3) mg/dl Est Cr Clr Drug Dosing 19.1 Est GFR ( Amer) 19.7 ml/min Est GFR (Non-Af Amer) 17.0 ml/min BUN/Creatinine Ratio 25.2 H (10-20) Glucose 135 H (70-99(Fasting)) mg/dl POC Glucose 147 H 133 H (70-99) mg/dl POC Glucose (other) (70-99) mg/dl Calcium 9.1 (8.6-10.3) mg/dl POC Ioniz Calcium Rossi (1.12-1.32) mmol/l Phosphorus (2.5-4.9) mg/dl Magnesium 2.3 (1.7-2.4) mg/dl Total Bilirubin 2.0 H (0.2-1.0) mg/dl AST 373 H ALT 235 H (7-52) U/L Alkaline Phosphatase 174 H (34-104) U/L Ammonia (18-72) umol/L Lactate Dehydrogenase Total Creatine Kinase (30-223) U/L Troponin I High Sens (0-20) pg/ml B-Natriuretic Peptide (0-100) pg/ml Total Protein 6.6 (6.0-8.3) gm/dl Albumin 3.6 (3.4-5.0) gm/dl Globulin 3.0 (2.5-4.0) gm/dl Albumin/Globulin Ratio 1.2 (0.9-2) Lipase (11-82) U/L TSH (0.300-4.500) uIu/ml Free T4 (0.61-1.60) ng/dl Urine Color Urine Appearance (Clear) Urine pH (4.5-7.5) Ur Specific [place] (1.000-1.030) Urine Protein (Negative) Urine Glucose (UA) (Negative) Urine Ketones (Negative) Urine Blood (Negative) Urine Nitrite (Negative) Urine Bilirubin (Negative) Urine Urobilinogen (Negative) Ur Leukocyte Esterase (Negative) Urine WBC (Auto) (0-5) /hpf Urine RBC (Auto) (0-2) /hpf U Hyaline Cast (Auto) (0-2) /lpf U Epithel Cells (Auto) (0-2) /hpf Urine Bacteria (Auto) (None Seen) Hyaline Casts (None Presnt) /lpf Granular Casts (None Prsent) /lpf Acetaminophen (10-30) ug/ml Anaplasma Smear Babesia Smear Babesia microti DNA PCR Lyme Disease Screen (Negative) Lyme Tier 2 IgG Confirm (Negative) Lyme Tier 2 IgM Confirm (Negative) Hepatitis A IgM Ab Hep Bs Antigen (Negative) Hep B Core IgM Ab Hepatitis C Antibody (Negative) Blood Parasites ID Blood Type Antibody Screen 01/18/24 01/18/24 01/18/24 Range/Units 20:28 19:52 16:09 WBC (4.8-10.8) K/ul RBC (4.70-6.10) M/uL Hgb (14.0-18.0) g/dl POC Hgb (14.0-18.0) g/dl Hct (42.0-52.0) % POC Hct (42-52) % MCV (80.0-100.0) fL MCH (25.0-34.0) pg MCHC (32.0-36.0) g/dL RDW Std Deviation (36.4-46.3) fL RDW Coeff of [place] (11.5-14.5) % Plt Count (130-400) K/uL MPV (9.4-12.4) fL Immature Gran % (Auto) % Neut % (Auto) % Lymph % (Auto) % [place] % (Auto) % Eos % (Auto) % Baso % (Auto) % Reticulocyte % (Auto) (0.50-2.00) % Neut # (Auto) (1.40-6.50) K/uL Lymph # (Auto) (1.20-3.40) K/uL [place] # (Auto) (0.11-0.59) K/uL Eos # (Auto) (0.00-0.50) K/uL Baso # (Auto) (0.00-0.20) K/uL Reticulocyte # (0.020-0.100) 10^6/uL Immature Gran # (Auto) (0.01-0.20) K/uL Absolute Nucleated RBC (0.00-0.12) K/uL Nucleated RBC % (auto) % Neutrophils % (Manual) Band Neutrophils % Lymphocytes % (Manual) Prolymphocyte % Reactive Lymphs % (Man) Monocytes % (Manual) Eosinophils % (Manual) Basophils % (Manual) Metamyelocytes % (Man) Myelocytes % (Man) Promyelocytes % (Man) Blast Cells % (Manual) Plasma Cell % (Manual) Other Cells % Nucleated RBC % Neutrophils # (Manual) Band Neutrophils # Total Absolute Neuts Lymphocytes # (Manual) Prolymphocyte # Reactive Lymphs # Total Abs Lymphocytes Monocytes # (Manual) Eosinophils # (Manual) Basophils # (Manual) Metamyelocytes # (Man) Myelocytes # (Manual) Promyelocytes # (Man) Blast Cells # (Man) Plasma Cell # (Manual) Other Cells # Nucleated RBCs # (Man) Hypersegmented Neuts Hyposegmented Neuts Hypogranular Neuts Large Granular Lymphs # Lrg Granular Lymphs Hairy Cells Smudge Cells Toxic Granulation Toxic Vacuolation Dohle Bodies Ricardo Rods Platelet Estimate (Normal) Hypogranular Platelets Giant Platelets Platelet Satelliting RBC Morphology Polychromasia Hypochromasia Poikilocytosis Basophilic Stippling Anisocytosis Microcytosis Macrocytosis Spherocytes Pappenheimer Bodies Sickle Cells Target Cells Tear Drop Cells Ovalocytes Stomatocytes Buenrostro-Groton Bodies Echinocytes Acanthocytes (Spur) Rouleaux RBC Agglutinates Schistocytes Peripher Smr Path Cons Sezary Cell Haptoglobin PT INR APTT (21-31) Seconds PTT Ratio Fibrinogen (184-400) mg/dl D-Dimer (0-500) ug/L FEU Factor VIII Activity POC Sodium (135-144) mmol/L Sodium 138 (136-145) mmol/L POC Potassium (3.3-5.0) mmol/L Potassium 6.0 H POC Chloride (101-112) mmol/L Chloride 101 (98-107) mmol/L Carbon Dioxide 20 L (21-32) mmol/L POC Total CO2 (24-31) mmol/L Anion Gap 17 H (3-11) POC Anion Gap (16-25) mmol/L POC BUN (7-18) mg/dl BUN 78 H (6-23) mg/dl Creatinine 3.17 H (0.6-1.4) mg/dl POC Creatinine (0.6-1.3) mg/dl Est Cr Clr Drug Dosing 19.2 Est GFR ( Amer) 19.5 ml/min Est GFR (Non-Af Amer) 16.8 ml/min BUN/Creatinine Ratio 24.6 H (10-20) Glucose 161 H (70-99(Fasting)) mg/dl POC Glucose 171 H 137 H (70-99) mg/dl POC Glucose (other) (70-99) mg/dl Calcium 9.5 (8.6-10.3) mg/dl POC Ioniz Calcium Rossi (1.12-1.32) mmol/l Phosphorus (2.5-4.9) mg/dl Magnesium (1.7-2.4) mg/dl Total Bilirubin (0.2-1.0) mg/dl AST ALT (7-52) U/L Alkaline Phosphatase (34-104) U/L Ammonia (18-72) umol/L Lactate Dehydrogenase Total Creatine Kinase (30-223) U/L Troponin I High Sens (0-20) pg/ml B-Natriuretic Peptide (0-100) pg/ml Total Protein (6.0-8.3) gm/dl Albumin (3.4-5.0) gm/dl Globulin (2.5-4.0) gm/dl Albumin/Globulin Ratio (0.9-2) Lipase (11-82) U/L TSH (0.300-4.500) uIu/ml Free T4 (0.61-1.60) ng/dl Urine Color Urine Appearance (Clear) Urine pH (4.5-7.5) Ur Specific [place] (1.000-1.030) Urine Protein (Negative) Urine Glucose (UA) (Negative) Urine Ketones (Negative) Urine Blood (Negative) Urine Nitrite (Negative) Urine Bilirubin (Negative) Urine Urobilinogen (Negative) Ur Leukocyte Esterase (Negative) Urine WBC (Auto) (0-5) /hpf Urine RBC (Auto) (0-2) /hpf U Hyaline Cast (Auto) (0-2) /lpf U Epithel Cells (Auto) (0-2) /hpf Urine Bacteria (Auto) (None Seen) Hyaline Casts (None Presnt) /lpf Granular Casts (None Prsent) /lpf Acetaminophen (10-30) ug/ml Anaplasma Smear Babesia Smear Babesia microti DNA PCR Lyme Disease Screen (Negative) Lyme Tier 2 IgG Confirm (Negative) Lyme Tier 2 IgM Confirm (Negative) Hepatitis A IgM Ab Hep Bs Antigen (Negative) Hep B Core IgM Ab Hepatitis C Antibody (Negative) Blood Parasites ID Blood Type Antibody Screen 01/18/24 01/18/24 01/18/24 Range/Units 15:19 15:19 15:19 WBC (4.8-10.8) K/ul RBC (4.70-6.10) M/uL Hgb (14.0-18.0) g/dl POC Hgb (14.0-18.0) g/dl Hct (42.0-52.0) % POC Hct (42-52) % MCV (80.0-100.0) fL MCH (25.0-34.0) pg MCHC (32.0-36.0) g/dL RDW Std Deviation (36.4-46.3) fL RDW Coeff of [place] (11.5-14.5) % Plt Count (130-400) K/uL MPV (9.4-12.4) fL Immature Gran % (Auto) % Neut % (Auto) % Lymph % (Auto) % [place] % (Auto) % Eos % (Auto) % Baso % (Auto) % Reticulocyte % (Auto) (0.50-2.00) % Neut # (Auto) (1.40-6.50) K/uL Lymph # (Auto) (1.20-3.40) K/uL [place] # (Auto) (0.11-0.59) K/uL Eos # (Auto) (0.00-0.50) K/uL Baso # (Auto) (0.00-0.20) K/uL Reticulocyte # (0.020-0.100) 10^6/uL Immature Gran # (Auto) (0.01-0.20) K/uL Absolute Nucleated RBC (0.00-0.12) K/uL Nucleated RBC % (auto) % Neutrophils % (Manual) Band Neutrophils % Lymphocytes % (Manual) Prolymphocyte % Reactive Lymphs % (Man) Monocytes % (Manual) Eosinophils % (Manual) Basophils % (Manual) Metamyelocytes % (Man) Myelocytes % (Man) Promyelocytes % (Man) Blast Cells % (Manual) Plasma Cell % (Manual) Other Cells % Nucleated RBC % Neutrophils # (Manual) Band Neutrophils # Total Absolute Neuts Lymphocytes # (Manual) Prolymphocyte # Reactive Lymphs # Total Abs Lymphocytes Monocytes # (Manual) Eosinophils # (Manual) Basophils # (Manual) Metamyelocytes # (Man) Myelocytes # (Manual) Promyelocytes # (Man) Blast Cells # (Man) Plasma Cell # (Manual) Other Cells # Nucleated RBCs # (Man) Hypersegmented Neuts Hyposegmented Neuts Hypogranular Neuts Large Granular Lymphs # Lrg Granular Lymphs Hairy Cells Smudge Cells Toxic Granulation Toxic Vacuolation Dohle Bodies Ricardo Rods Platelet Estimate (Normal) Hypogranular Platelets Giant Platelets Platelet Satelliting RBC Morphology Polychromasia Hypochromasia Poikilocytosis Basophilic Stippling Anisocytosis Microcytosis Macrocytosis Spherocytes Pappenheimer Bodies Sickle Cells Target Cells Tear Drop Cells Ovalocytes Stomatocytes Buenrostro-Groton Bodies Echinocytes Acanthocytes (Spur) Rouleaux RBC Agglutinates Schistocytes Peripher Smr Path Cons Sezary Cell Haptoglobin PT INR APTT (21-31) Seconds PTT Ratio Fibrinogen (184-400) mg/dl D-Dimer (0-500) ug/L FEU Factor VIII Activity POC Sodium (135-144) mmol/L Sodium (136-145) mmol/L POC Potassium (3.3-5.0) mmol/L Potassium POC Chloride (101-112) mmol/L Chloride (98-107) mmol/L Carbon Dioxide (21-32) mmol/L POC Total CO2 (24-31) mmol/L Anion Gap (3-11) POC Anion Gap (16-25) mmol/L POC BUN (7-18) mg/dl BUN (6-23) mg/dl Creatinine (0.6-1.4) mg/dl POC Creatinine (0.6-1.3) mg/dl Est Cr Clr Drug Dosing Est GFR ( Amer) ml/min Est GFR (Non-Af Amer) ml/min BUN/Creatinine Ratio 24.8 H (10-20) Glucose 118 H 119 H (70-99(Fasting)) mg/dl POC Glucose (70-99) mg/dl POC Glucose (other) (70-99) mg/dl Calcium 9.6 9.9 (8.6-10.3) mg/dl POC Ioniz Calcium Rossi (1.12-1.32) mmol/l Phosphorus 4.9 (2.5-4.9) mg/dl Magnesium (1.7-2.4) mg/dl Total Bilirubin (0.2-1.0) mg/dl AST ALT (7-52) U/L Alkaline Phosphatase (34-104) U/L Ammonia (18-72) umol/L Lactate Dehydrogenase Total Creatine Kinase (30-223) U/L Troponin I High Sens (0-20) pg/ml B-Natriuretic Peptide (0-100) pg/ml Total Protein (6.0-8.3) gm/dl Albumin 3.7 (3.4-5.0) gm/dl Globulin (2.5-4.0) gm/dl Albumin/Globulin Ratio (0.9-2) Lipase (11-82) U/L TSH (0.300-4.500) uIu/ml Free T4 (0.61-1.60) ng/dl Urine Color Urine Appearance (Clear) Urine pH (4.5-7.5) Ur Specific [place] (1.000-1.030) Urine Protein (Negative) Urine Glucose (UA) (Negative) Urine Ketones (Negative) Urine Blood (Negative) Urine Nitrite (Negative) Urine Bilirubin (Negative) Urine Urobilinogen (Negative) Ur Leukocyte Esterase (Negative) Urine WBC (Auto) (0-5) /hpf Urine RBC (Auto) (0-2) /hpf U Hyaline Cast (Auto) (0-2) /lpf U Epithel Cells (Auto) (0-2) /hpf Urine Bacteria (Auto) (None Seen) Hyaline Casts (None Presnt) /lpf Granular Casts (None Prsent) /lpf Acetaminophen (10-30) ug/ml Anaplasma Smear Babesia Smear Babesia microti DNA PCR Lyme Disease Screen (Negative) Lyme Tier 2 IgG Confirm (Negative) Lyme Tier 2 IgM Confirm (Negative) Hepatitis A IgM Ab Hep Bs Antigen (Negative) Hep B Core IgM Ab Hepatitis C Antibody (Negative) Blood Parasites ID Blood Type Antibody Screen 01/18/24 01/18/24 01/18/24 Range/Units 15:19 15:19 15:19 WBC (4.8-10.8) K/ul RBC (4.70-6.10) M/uL Hgb (14.0-18.0) g/dl POC Hgb (14.0-18.0) g/dl Hct (42.0-52.0) % POC Hct (42-52) % MCV (80.0-100.0) fL MCH (25.0-34.0) pg MCHC (32.0-36.0) g/dL RDW Std Deviation (36.4-46.3) fL RDW Coeff of [place] (11.5-14.5) % Plt Count (130-400) K/uL MPV (9.4-12.4) fL Immature Gran % (Auto) % Neut % (Auto) % Lymph % (Auto) % [place] % (Auto) % Eos % (Auto) % Baso % (Auto) % Reticulocyte % (Auto) (0.50-2.00) % Neut # (Auto) (1.40-6.50) K/uL Lymph # (Auto) (1.20-3.40) K/uL [place] # (Auto) (0.11-0.59) K/uL Eos # (Auto) (0.00-0.50) K/uL Baso # (Auto) (0.00-0.20) K/uL Reticulocyte # (0.020-0.100) 10^6/uL Immature Gran # (Auto) (0.01-0.20) K/uL Absolute Nucleated RBC (0.00-0.12) K/uL Nucleated RBC % (auto) % Neutrophils % (Manual) Band Neutrophils % Lymphocytes % (Manual) Prolymphocyte % Reactive Lymphs % (Man) Monocytes % (Manual) Eosinophils % (Manual) Basophils % (Manual) Metamyelocytes % (Man) Myelocytes % (Man) Promyelocytes % (Man) Blast Cells % (Manual) Plasma Cell % (Manual) Other Cells % Nucleated RBC % Neutrophils # (Manual) Band Neutrophils # Total Absolute Neuts Lymphocytes # (Manual) Prolymphocyte # Reactive Lymphs # Total Abs Lymphocytes Monocytes # (Manual) Eosinophils # (Manual) Basophils # (Manual) Metamyelocytes # (Man) Myelocytes # (Manual) Promyelocytes # (Man) Blast Cells # (Man) Plasma Cell # (Manual) Other Cells # Nucleated RBCs # (Man) Hypersegmented Neuts Hyposegmented Neuts Hypogranular Neuts Large Granular Lymphs # Lrg Granular Lymphs Hairy Cells Smudge Cells Toxic Granulation Toxic Vacuolation Dohle Bodies Ricardo Rods Platelet Estimate (Normal) Hypogranular Platelets Giant Platelets Platelet Satelliting RBC Morphology Polychromasia Hypochromasia Poikilocytosis Basophilic Stippling Anisocytosis Microcytosis Macrocytosis Spherocytes Pappenheimer Bodies Sickle Cells Target Cells Tear Drop Cells Ovalocytes Stomatocytes Buenrostro-Groton Bodies Echinocytes Acanthocytes (Spur) Rouleaux RBC Agglutinates Schistocytes Peripher Smr Path Cons Sezary Cell Haptoglobin PT INR APTT (21-31) Seconds PTT Ratio Fibrinogen (184-400) mg/dl D-Dimer (0-500) ug/L FEU Factor VIII Activity POC Sodium (135-144) mmol/L Sodium (136-145) mmol/L POC Potassium (3.3-5.0) mmol/L Potassium POC Chloride (101-112) mmol/L Chloride (98-107) mmol/L Carbon Dioxide (21-32) mmol/L POC Total CO2 (24-31) mmol/L Anion Gap (3-11) POC Anion Gap (16-25) mmol/L POC BUN (7-18) mg/dl BUN (6-23) mg/dl Creatinine (0.6-1.4) mg/dl POC Creatinine (0.6-1.3) mg/dl Est Cr Clr Drug Dosing 20.1 Est GFR ( Amer) 20.7 20.1 ml/min Est GFR (Non-Af Amer) 17.8 17.3 ml/min BUN/Creatinine Ratio 24.3 H (10-20) Glucose (70-99(Fasting)) mg/dl POC Glucose (70-99) mg/dl POC Glucose (other) (70-99) mg/dl Calcium (8.6-10.3) mg/dl POC Ioniz Calcium Rossi (1.12-1.32) mmol/l Phosphorus (2.5-4.9) mg/dl Magnesium (1.7-2.4) mg/dl Total Bilirubin (0.2-1.0) mg/dl AST ALT (7-52) U/L Alkaline Phosphatase (34-104) U/L Ammonia (18-72) umol/L Lactate Dehydrogenase Total Creatine Kinase (30-223) U/L Troponin I High Sens (0-20) pg/ml B-Natriuretic Peptide (0-100) pg/ml Total Protein (6.0-8.3) gm/dl Albumin (3.4-5.0) gm/dl Globulin (2.5-4.0) gm/dl Albumin/Globulin Ratio (0.9-2) Lipase (11-82) U/L TSH (0.300-4.500) uIu/ml Free T4 (0.61-1.60) ng/dl Urine Color Urine Appearance (Clear) Urine pH (4.5-7.5) Ur Specific [place] (1.000-1.030) Urine Protein (Negative) Urine Glucose (UA) (Negative) Urine Ketones (Negative) Urine Blood (Negative) Urine Nitrite (Negative) Urine Bilirubin (Negative) Urine Urobilinogen (Negative) Ur Leukocyte Esterase (Negative) Urine WBC (Auto) (0-5) /hpf Urine RBC (Auto) (0-2) /hpf U Hyaline Cast (Auto) (0-2) /lpf U Epithel Cells (Auto) (0-2) /hpf Urine Bacteria (Auto) (None Seen) Hyaline Casts (None Presnt) /lpf Granular Casts (None Prsent) /lpf Acetaminophen (10-30) ug/ml Anaplasma Smear Babesia Smear Babesia microti DNA PCR Lyme Disease Screen (Negative) Lyme Tier 2 IgG Confirm (Negative) Lyme Tier 2 IgM Confirm (Negative) Hepatitis A IgM Ab Hep Bs Antigen (Negative) Hep B Core IgM Ab Hepatitis C Antibody (Negative) Blood Parasites ID Blood Type Antibody Screen 01/18/24 01/18/24 01/18/24 Range/Units 15:19 15:19 15:19 WBC (4.8-10.8) K/ul RBC (4.70-6.10) M/uL Hgb (14.0-18.0) g/dl POC Hgb (14.0-18.0) g/dl Hct (42.0-52.0) % POC Hct (42-52) % MCV (80.0-100.0) fL MCH (25.0-34.0) pg MCHC (32.0-36.0) g/dL RDW Std Deviation (36.4-46.3) fL RDW Coeff of [place]eron[place] (11.5-14.5) % Plt Count (130-400) K/uL MPV (9.4-12.4) fL Immature Gran % (Auto) % Neut % (Auto) % Lymph % (Auto) % [place] % (Auto) % Eos % (Auto) % Baso % (Auto) % Reticulocyte % (Auto) (0.50-2.00) % Neut # (Auto) (1.40-6.50) K/uL Lymph # (Auto) (1.20-3.40) K/uL [place] # (Auto) (0.11-0.59) K/uL Eos # (Auto) (0.00-0.50) K/uL Baso # (Auto) (0.00-0.20) K/uL Reticulocyte # (0.020-0.100) 10^6/uL Immature Gran # (Auto) (0.01-0.20) K/uL Absolute Nucleated RBC (0.00-0.12) K/uL Nucleated RBC % (auto) % Neutrophils % (Manual) Band Neutrophils % Lymphocytes % (Manual) Prolymphocyte % Reactive Lymphs % (Man) Monocytes % (Manual) Eosinophils % (Manual) Basophils % (Manual) Metamyelocytes % (Man) Myelocytes % (Man) Promyelocytes % (Man) Blast Cells % (Manual) Plasma Cell % (Manual) Other Cells % Nucleated RBC % Neutrophils # (Manual) Band Neutrophils # Total Absolute Neuts Lymphocytes # (Manual) Prolymphocyte # Reactive Lymphs # Total Abs Lymphocytes Monocytes # (Manual) Eosinophils # (Manual) Basophils # (Manual) Metamyelocytes # (Man) Myelocytes # (Manual) Promyelocytes # (Man) Blast Cells # (Man) Plasma Cell # (Manual) Other Cells # Nucleated RBCs # (Man) Hypersegmented Neuts Hyposegmented Neuts Hypogranular Neuts Large Granular Lymphs # Lrg Granular Lymphs Hairy Cells Smudge Cells Toxic Granulation Toxic Vacuolation Dohle Bodies Ricardo Rods Platelet Estimate (Normal) Hypogranular Platelets Giant Platelets Platelet Satelliting RBC Morphology Polychromasia Hypochromasia Poikilocytosis Basophilic Stippling Anisocytosis Microcytosis Macrocytosis Spherocytes Pappenheimer Bodies Sickle Cells Target Cells Tear Drop Cells Ovalocytes Stomatocytes Buenrostro-Groton Bodies Echinocytes Acanthocytes (Spur) Rouleaux RBC Agglutinates Schistocytes Peripher Smr Path Cons [place] Cell Haptoglobin PT INR APTT (21-31) Seconds PTT Ratio Fibrinogen (184-400) mg/dl D-Dimer (0-500) ug/L FEU Factor VIII Activity POC Sodium (135-144) mmol/L Sodium (136-145) mmol/L POC Potassium (3.3-5.0) mmol/L Potassium POC Chloride (101-112) mmol/L Chloride (98-107) mmol/L Carbon Dioxide (21-32) mmol/L POC Total CO2 (24-31) mmol/L Anion Gap 17 H (3-11) POC Anion Gap (16-25) mmol/L POC BUN (7-18) mg/dl BUN 75 H 75 H (6-23) mg/dl Creatinine 3.02 H 3.09 H (0.6-1.4) mg/dl POC Creatinine (0.6-1.3) mg/dl Est Cr Clr Drug Dosing 19.7 Est GFR ( Amer) ml/min Est GFR (Non-Af Amer) ml/min BUN/Creatinine Ratio (10-20) Glucose (70-99(Fasting)) mg/dl POC Glucose (70-99) mg/dl POC Glucose (other) (70-99) mg/dl Calcium (8.6-10.3) mg/dl POC Ioniz Calcium Rossi (1.12-1.32) mmol/l Phosphorus (2.5-4.9) mg/dl Magnesium (1.7-2.4) mg/dl Total Bilirubin (0.2-1.0) mg/dl AST ALT (7-52) U/L Alkaline Phosphatase (34-104) U/L Ammonia (18-72) umol/L Lactate Dehydrogenase Total Creatine Kinase (30-223) U/L Troponin I High Sens (0-20) pg/ml B-Natriuretic Peptide (0-100) pg/ml Total Protein (6.0-8.3) gm/dl Albumin (3.4-5.0) gm/dl Globulin (2.5-4.0) gm/dl Albumin/Globulin Ratio (0.9-2) Lipase (11-82) U/L TSH (0.300-4.500) uIu/ml Free T4 (0.61-1.60) ng/dl Urine Color Urine Appearance (Clear) Urine pH (4.5-7.5) Ur Specific [place] (1.000-1.030) Urine Protein (Negative) Urine Glucose (UA) (Negative) Urine Ketones (Negative) Urine Blood (Negative) Urine Nitrite (Negative) Urine Bilirubin (Negative) Urine Urobilinogen (Negative) Ur Leukocyte Esterase (Negative) Urine WBC (Auto) (0-5) /hpf Urine RBC (Auto) (0-2) /hpf U Hyaline Cast (Auto) (0-2) /lpf U Epithel Cells (Auto) (0-2) /hpf Urine Bacteria (Auto) (None Seen) Hyaline Casts (None Presnt) /lpf Granular Casts (None Prsent) /lpf Acetaminophen (10-30) ug/ml Anaplasma Smear Babesia Smear Babesia microti DNA PCR Lyme Disease Screen (Negative) Lyme Tier 2 IgG Confirm (Negative) Lyme Tier 2 IgM Confirm (Negative) Hepatitis A IgM Ab Hep Bs Antigen (Negative) Hep B Core IgM Ab Hepatitis C Antibody (Negative) Blood Parasites ID Blood Type Antibody Screen 01/18/24 01/18/24 01/18/24 Range/Units 15:19 15:19 15:19 WBC (4.8-10.8) K/ul RBC (4.70-6.10) M/uL Hgb (14.0-18.0) g/dl POC Hgb (14.0-18.0) g/dl Hct (42.0-52.0) % POC Hct (42-52) % MCV (80.0-100.0) fL MCH (25.0-34.0) pg MCHC (32.0-36.0) g/dL RDW Std Deviation (36.4-46.3) fL RDW Coeff of [place] (11.5-14.5) % Plt Count (130-400) K/uL MPV (9.4-12.4) fL Immature Gran % (Auto) % Neut % (Auto) % Lymph % (Auto) % [place] % (Auto) % Eos % (Auto) % Baso % (Auto) % Reticulocyte % (Auto) (0.50-2.00) % Neut # (Auto) (1.40-6.50) K/uL Lymph # (Auto) (1.20-3.40) K/uL [place] # (Auto) (0.11-0.59) K/uL Eos # (Auto) (0.00-0.50) K/uL Baso # (Auto) (0.00-0.20) K/uL Reticulocyte # (0.020-0.100) 10^6/uL Immature Gran # (Auto) (0.01-0.20) K/uL Absolute Nucleated RBC (0.00-0.12) K/uL Nucleated RBC % (auto) % Neutrophils % (Manual) Band Neutrophils % Lymphocytes % (Manual) Prolymphocyte % Reactive Lymphs % (Man) Monocytes % (Manual) Eosinophils % (Manual) Basophils % (Manual) Metamyelocytes % (Man) Myelocytes % (Man) Promyelocytes % (Man) Blast Cells % (Manual) Plasma Cell % (Manual) Other Cells % Nucleated RBC % Neutrophils # (Manual) Band Neutrophils # Total Absolute Neuts Lymphocytes # (Manual) Prolymphocyte # Reactive Lymphs # Total Abs Lymphocytes Monocytes # (Manual) Eosinophils # (Manual) Basophils # (Manual) Metamyelocytes # (Man) Myelocytes # (Manual) Promyelocytes # (Man) Blast Cells # (Man) Plasma Cell # (Manual) Other Cells # Nucleated RBCs # (Man) Hypersegmented Neuts Hyposegmented Neuts Hypogranular Neuts Large Granular Lymphs # Lrg Granular Lymphs Hairy Cells Smudge Cells Toxic Granulation Toxic Vacuolation Dohle Bodies Ricardo Rods Platelet Estimate (Normal) Hypogranular Platelets Giant Platelets Platelet Satelliting RBC Morphology Polychromasia Hypochromasia Poikilocytosis Basophilic Stippling Anisocytosis Microcytosis Macrocytosis Spherocytes Pappenheimer Bodies Sickle Cells Target Cells Tear Drop Cells Ovalocytes Stomatocytes Buenrostro-Groton Bodies Echinocytes Acanthocytes (Spur) Rouleaux RBC Agglutinates Schistocytes Peripher Smr Path Cons Sezary Cell Haptoglobin PT INR APTT (21-31) Seconds PTT Ratio Fibrinogen (184-400) mg/dl D-Dimer (0-500) ug/L FEU Factor VIII Activity POC Sodium (135-144) mmol/L Sodium (136-145) mmol/L POC Potassium (3.3-5.0) mmol/L Potassium 6.3 H* POC Chloride (101-112) mmol/L Chloride 103 103 (98-107) mmol/L Carbon Dioxide 20 L 20 L (21-32) mmol/L POC Total CO2 (24-31) mmol/L Anion Gap 16 H (3-11) POC Anion Gap (16-25) mmol/L POC BUN (7-18) mg/dl BUN (6-23) mg/dl Creatinine (0.6-1.4) mg/dl POC Creatinine (0.6-1.3) mg/dl Est Cr Clr Drug Dosing Est GFR ( Amer) ml/min Est GFR (Non-Af Amer) ml/min BUN/Creatinine Ratio (10-20) Glucose (70-99(Fasting)) mg/dl POC Glucose (70-99) mg/dl POC Glucose (other) (70-99) mg/dl Calcium (8.6-10.3) mg/dl POC Ioniz Calcium Rossi (1.12-1.32) mmol/l Phosphorus (2.5-4.9) mg/dl Magnesium (1.7-2.4) mg/dl Total Bilirubin (0.2-1.0) mg/dl AST ALT (7-52) U/L Alkaline Phosphatase (34-104) U/L Ammonia (18-72) umol/L Lactate Dehydrogenase Total Creatine Kinase (30-223) U/L Troponin I High Sens (0-20) pg/ml B-Natriuretic Peptide (0-100) pg/ml Total Protein (6.0-8.3) gm/dl Albumin (3.4-5.0) gm/dl Globulin (2.5-4.0) gm/dl Albumin/Globulin Ratio (0.9-2) Lipase (11-82) U/L TSH (0.300-4.500) uIu/ml Free T4 (0.61-1.60) ng/dl Urine Color Urine Appearance (Clear) Urine pH (4.5-7.5) Ur Specific [place] (1.000-1.030) Urine Protein (Negative) Urine Glucose (UA) (Negative) Urine Ketones (Negative) Urine Blood (Negative) Urine Nitrite (Negative) Urine Bilirubin (Negative) Urine Urobilinogen (Negative) Ur Leukocyte Esterase (Negative) Urine WBC (Auto) (0-5) /hpf Urine RBC (Auto) (0-2) /hpf U Hyaline Cast (Auto) (0-2) /lpf U Epithel Cells (Auto) (0-2) /hpf Urine Bacteria (Auto) (None Seen) Hyaline Casts (None Presnt) /lpf Granular Casts (None Prsent) /lpf Acetaminophen (10-30) ug/ml Anaplasma Smear Babesia Smear Babesia microti DNA PCR Lyme Disease Screen (Negative) Lyme Tier 2 IgG Confirm (Negative) Lyme Tier 2 IgM Confirm (Negative) Hepatitis A IgM Ab Hep Bs Antigen (Negative) Hep B Core IgM Ab Hepatitis C Antibody (Negative) Blood Parasites ID Blood Type Antibody Screen 01/18/24 01/18/24 01/18/24 Range/Units 15:19 15:19 10:55 WBC (4.8-10.8) K/ul RBC (4.70-6.10) M/uL Hgb (14.0-18.0) g/dl POC Hgb (14.0-18.0) g/dl Hct (42.0-52.0) % POC Hct (42-52) % MCV (80.0-100.0) fL MCH (25.0-34.0) pg MCHC (32.0-36.0) g/dL RDW Std Deviation (36.4-46.3) fL RDW Coeff of [place]eron[place] (11.5-14.5) % Plt Count (130-400) K/uL MPV (9.4-12.4) fL Immature Gran % (Auto) % Neut % (Auto) % Lymph % (Auto) % [place] % (Auto) % Eos % (Auto) % Baso % (Auto) % Reticulocyte % (Auto) (0.50-2.00) % Neut # (Auto) (1.40-6.50) K/uL Lymph # (Auto) (1.20-3.40) K/uL [place] # (Auto) (0.11-0.59) K/uL Eos # (Auto) (0.00-0.50) K/uL Baso # (Auto) (0.00-0.20) K/uL Reticulocyte # (0.020-0.100) 10^6/uL Immature Gran # (Auto) (0.01-0.20) K/uL Absolute Nucleated RBC (0.00-0.12) K/uL Nucleated RBC % (auto) % Neutrophils % (Manual) Band Neutrophils % Lymphocytes % (Manual) Prolymphocyte % Reactive Lymphs % (Man) Monocytes % (Manual) Eosinophils % (Manual) Basophils % (Manual) Metamyelocytes % (Man) Myelocytes % (Man) Promyelocytes % (Man) Blast Cells % (Manual) Plasma Cell % (Manual) Other Cells % Nucleated RBC % Neutrophils # (Manual) Band Neutrophils # Total Absolute Neuts Lymphocytes # (Manual) Prolymphocyte # Reactive Lymphs # Total Abs Lymphocytes Monocytes # (Manual) Eosinophils # (Manual) Basophils # (Manual) Metamyelocytes # (Man) Myelocytes # (Manual) Promyelocytes # (Man) Blast Cells # (Man) Plasma Cell # (Manual) Other Cells # Nucleated RBCs # (Man) Hypersegmented Neuts Hyposegmented Neuts Hypogranular Neuts Large Granular Lymphs # Lrg Granular Lymphs Hairy Cells Smudge Cells Toxic Granulation Toxic Vacuolation Dohle Bodies Ricardo Rods Platelet Estimate (Normal) Hypogranular Platelets Giant Platelets Platelet Satelliting RBC Morphology Polychromasia Hypochromasia Poikilocytosis Basophilic Stippling Anisocytosis Microcytosis Macrocytosis Spherocytes Pappenheimer Bodies Sickle Cells Target Cells Tear Drop Cells Ovalocytes Stomatocytes Buenrostro-Groton Bodies Echinocytes Acanthocytes (Spur) Rouleaux RBC Agglutinates Schistocytes Peripher Smr Path Cons Sezary Cell Haptoglobin PT INR APTT (21-31) Seconds PTT Ratio Fibrinogen (184-400) mg/dl D-Dimer (0-500) ug/L FEU Factor VIII Activity POC Sodium (135-144) mmol/L Sodium 140 139 (136-145) mmol/L POC Potassium (3.3-5.0) mmol/L Potassium 6.3 H* POC Chloride (101-112) mmol/L Chloride (98-107) mmol/L Carbon Dioxide (21-32) mmol/L POC Total CO2 (24-31) mmol/L Anion Gap (3-11) POC Anion Gap (16-25) mmol/L POC BUN (7-18) mg/dl BUN (6-23) mg/dl Creatinine (0.6-1.4) mg/dl POC Creatinine (0.6-1.3) mg/dl Est Cr Clr Drug Dosing Est GFR ( Amer) ml/min Est GFR (Non-Af Amer) ml/min BUN/Creatinine Ratio (10-20) Glucose (70-99(Fasting)) mg/dl POC Glucose 115 H (70-99) mg/dl POC Glucose (other) (70-99) mg/dl Calcium (8.6-10.3) mg/dl POC Ioniz Calcium Rossi (1.12-1.32) mmol/l Phosphorus (2.5-4.9) mg/dl Magnesium (1.7-2.4) mg/dl Total Bilirubin (0.2-1.0) mg/dl AST ALT (7-52) U/L Alkaline Phosphatase (34-104) U/L Ammonia (18-72) umol/L Lactate Dehydrogenase Total Creatine Kinase (30-223) U/L Troponin I High Sens (0-20) pg/ml B-Natriuretic Peptide (0-100) pg/ml Total Protein (6.0-8.3) gm/dl Albumin (3.4-5.0) gm/dl Globulin (2.5-4.0) gm/dl Albumin/Globulin Ratio (0.9-2) Lipase (11-82) U/L TSH (0.300-4.500) uIu/ml Free T4 (0.61-1.60) ng/dl Urine Color Urine Appearance (Clear) Urine pH (4.5-7.5) Ur Specific [place] (1.000-1.030) Urine Protein (Negative) Urine Glucose (UA) (Negative) Urine Ketones (Negative) Urine Blood (Negative) Urine Nitrite (Negative) Urine Bilirubin (Negative) Urine Urobilinogen (Negative) Ur Leukocyte Esterase (Negative) Urine WBC (Auto) (0-5) /hpf Urine RBC (Auto) (0-2) /hpf U Hyaline Cast (Auto) (0-2) /lpf U Epithel Cells (Auto) (0-2) /hpf Urine Bacteria (Auto) (None Seen) Hyaline Casts (None Presnt) /lpf Granular Casts (None Prsent) /lpf Acetaminophen (10-30) ug/ml Anaplasma Smear Babesia Smear Babesia microti DNA PCR Lyme Disease Screen (Negative) Lyme Tier 2 IgG Confirm (Negative) Lyme Tier 2 IgM Confirm (Negative) Hepatitis A IgM Ab Hep Bs Antigen (Negative) Hep B Core IgM Ab Hepatitis C Antibody (Negative) Blood Parasites ID Blood Type Antibody Screen 01/18/24 01/18/24 01/18/24 Range/Units 09:58 09:01 09:00 WBC (4.8-10.8) K/ul RBC (4.70-6.10) M/uL Hgb (14.0-18.0) g/dl POC Hgb (14.0-18.0) g/dl Hct (42.0-52.0) % POC Hct (42-52) % MCV (80.0-100.0) fL MCH (25.0-34.0) pg MCHC (32.0-36.0) g/dL RDW Std Deviation (36.4-46.3) fL RDW Coeff of [place] (11.5-14.5) % Plt Count (130-400) K/uL MPV (9.4-12.4) fL Immature Gran % (Auto) % Neut % (Auto) % Lymph % (Auto) % [place] % (Auto) % Eos % (Auto) % Baso % (Auto) % Reticulocyte % (Auto) (0.50-2.00) % Neut # (Auto) (1.40-6.50) K/uL Lymph # (Auto) (1.20-3.40) K/uL [place] # (Auto) (0.11-0.59) K/uL Eos # (Auto) (0.00-0.50) K/uL Baso # (Auto) (0.00-0.20) K/uL Reticulocyte # (0.020-0.100) 10^6/uL Immature Gran # (Auto) (0.01-0.20) K/uL Absolute Nucleated RBC (0.00-0.12) K/uL Nucleated RBC % (auto) % Neutrophils % (Manual) Band Neutrophils % Lymphocytes % (Manual) Prolymphocyte % Reactive Lymphs % (Man) Monocytes % (Manual) Eosinophils % (Manual) Basophils % (Manual) Metamyelocytes % (Man) Myelocytes % (Man) Promyelocytes % (Man) Blast Cells % (Manual) Plasma Cell % (Manual) Other Cells % Nucleated RBC % Neutrophils # (Manual) Band Neutrophils # Total Absolute Neuts Lymphocytes # (Manual) Prolymphocyte # Reactive Lymphs # Total Abs Lymphocytes Monocytes # (Manual) Eosinophils # (Manual) Basophils # (Manual) Metamyelocytes # (Man) Myelocytes # (Manual) Promyelocytes # (Man) Blast Cells # (Man) Plasma Cell # (Manual) Other Cells # Nucleated RBCs # (Man) Hypersegmented Neuts Hyposegmented Neuts Hypogranular Neuts Large Granular Lymphs # Lrg Granular Lymphs Hairy Cells Smudge Cells Toxic Granulation Toxic Vacuolation Dohle Bodies Ricardo Rods Platelet Estimate (Normal) Hypogranular Platelets Giant Platelets Platelet Satelliting RBC Morphology Polychromasia Hypochromasia Poikilocytosis Basophilic Stippling Anisocytosis Microcytosis Macrocytosis Spherocytes Pappenheimer Bodies Sickle Cells Target Cells Tear Drop Cells Ovalocytes Stomatocytes Buenrostro-Groton Bodies Echinocytes Acanthocytes (Spur) Rouleaux RBC Agglutinates Schistocytes Peripher Smr Path Cons Sezary Cell Haptoglobin PT 52.0 H INR 5.6 H* APTT (21-31) Seconds PTT Ratio Fibrinogen (184-400) mg/dl D-Dimer (0-500) ug/L FEU Factor VIII Activity POC Sodium (135-144) mmol/L Sodium (136-145) mmol/L POC Potassium (3.3-5.0) mmol/L Potassium POC Chloride (101-112) mmol/L Chloride (98-107) mmol/L Carbon Dioxide (21-32) mmol/L POC Total CO2 (24-31) mmol/L Anion Gap (3-11) POC Anion Gap (16-25) mmol/L POC BUN (7-18) mg/dl BUN (6-23) mg/dl Creatinine (0.6-1.4) mg/dl POC Creatinine (0.6-1.3) mg/dl Est Cr Clr Drug Dosing Est GFR ( Amer) ml/min Est GFR (Non-Af Amer) ml/min BUN/Creatinine Ratio (10-20) Glucose (70-99(Fasting)) mg/dl POC Glucose 96 109 H (70-99) mg/dl POC Glucose (other) (70-99) mg/dl Calcium (8.6-10.3) mg/dl POC Ioniz Calcium Rossi (1.12-1.32) mmol/l Phosphorus (2.5-4.9) mg/dl Magnesium (1.7-2.4) mg/dl Total Bilirubin (0.2-1.0) mg/dl AST ALT (7-52) U/L Alkaline Phosphatase (34-104) U/L Ammonia (18-72) umol/L Lactate Dehydrogenase Total Creatine Kinase (30-223) U/L Troponin I High Sens (0-20) pg/ml B-Natriuretic Peptide (0-100) pg/ml Total Protein (6.0-8.3) gm/dl Albumin (3.4-5.0) gm/dl Globulin (2.5-4.0) gm/dl Albumin/Globulin Ratio (0.9-2) Lipase (11-82) U/L TSH (0.300-4.500) uIu/ml Free T4 (0.61-1.60) ng/dl Urine Color Urine Appearance (Clear) Urine pH (4.5-7.5) Ur Specific [place] (1.000-1.030) Urine Protein (Negative) Urine Glucose (UA) (Negative) Urine Ketones (Negative) Urine Blood (Negative) Urine Nitrite (Negative) Urine Bilirubin (Negative) Urine Urobilinogen (Negative) Ur Leukocyte Esterase (Negative) Urine WBC (Auto) (0-5) /hpf Urine RBC (Auto) (0-2) /hpf U Hyaline Cast (Auto) (0-2) /lpf U Epithel Cells (Auto) (0-2) /hpf Urine Bacteria (Auto) (None Seen) Hyaline Casts (None Presnt) /lpf Granular Casts (None Prsent) /lpf Acetaminophen (10-30) ug/ml Anaplasma Smear Babesia Smear Babesia microti DNA PCR Pending Lyme Disease Screen (Negative) Lyme Tier 2 IgG Confirm (Negative) Lyme Tier 2 IgM Confirm (Negative) Hepatitis A IgM Ab Hep Bs Antigen (Negative) Hep B Core IgM Ab Hepatitis C Antibody (Negative) Blood Parasites ID Blood Type Antibody Screen 01/18/24 01/18/24 01/17/24 Range/Units 07:02 06:56 22:46 WBC 8.80 (4.8-10.8) K/ul RBC 3.48 L (4.70-6.10) M/uL Hgb 10.9 L (14.0-18.0) g/dl POC Hgb (14.0-18.0) g/dl Hct 34.2 L (42.0-52.0) % POC Hct (42-52) % MCV 98.3 (80.0-100.0) fL MCH 31.3 (25.0-34.0) pg MCHC 31.9 L (32.0-36.0) g/dL RDW Std Deviation 61.8 H (36.4-46.3) fL RDW Coeff of [place] 17.3 H (11.5-14.5) % Plt Count 81 L (130-400) K/uL MPV 12.7 H (9.4-12.4) fL Immature Gran % (Auto) 0.5 % Neut % (Auto) 81.1 % Lymph % (Auto) 9.4 % [place] % (Auto) 8.9 % Eos % (Auto) 0.0 % Baso % (Auto) 0.1 % Reticulocyte % (Auto) (0.50-2.00) % Neut # (Auto) 7.14 H (1.40-6.50) K/uL Lymph # (Auto) 0.83 L (1.20-3.40) K/uL [place] # (Auto) 0.78 H (0.11-0.59) K/uL Eos # (Auto) 0.00 (0.00-0.50) K/uL Baso # (Auto) 0.01 (0.00-0.20) K/uL Reticulocyte # (0.020-0.100) 10^6/uL Immature Gran # (Auto) 0.04 (0.01-0.20) K/uL Absolute Nucleated RBC (0.00-0.12) K/uL Nucleated RBC % (auto) % Neutrophils % (Manual) Band Neutrophils % Lymphocytes % (Manual) Prolymphocyte % Reactive Lymphs % (Man) Monocytes % (Manual) Eosinophils % (Manual) Basophils % (Manual) Metamyelocytes % (Man) Myelocytes % (Man) Promyelocytes % (Man) Blast Cells % (Manual) Plasma Cell % (Manual) Other Cells % Nucleated RBC % Neutrophils # (Manual) Band Neutrophils # Total Absolute Neuts Lymphocytes # (Manual) Prolymphocyte # Reactive Lymphs # Total Abs Lymphocytes Monocytes # (Manual) Eosinophils # (Manual) Basophils # (Manual) Metamyelocytes # (Man) Myelocytes # (Manual) Promyelocytes # (Man) Blast Cells # (Man) Plasma Cell # (Manual) Other Cells # Nucleated RBCs # (Man) Hypersegmented Neuts Hyposegmented Neuts Hypogranular Neuts Large Granular Lymphs # Lrg Granular Lymphs Hairy Cells Smudge Cells Toxic Granulation Toxic Vacuolation Dohle Bodies Ricardo Rods Platelet Estimate (Normal) Hypogranular Platelets Giant Platelets Platelet Satelliting RBC Morphology Polychromasia 1+ Hypochromasia Poikilocytosis Basophilic Stippling Anisocytosis Microcytosis Macrocytosis Spherocytes Pappenheimer Bodies Sickle Cells Target Cells Tear Drop Cells Ovalocytes Stomatocytes Buenrostro-Groton Bodies Echinocytes 1+ Acanthocytes (Spur) 1+ Rouleaux RBC Agglutinates Schistocytes Peripher Smr Path Cons Sezary Cell Haptoglobin PT INR APTT (21-31) Seconds PTT Ratio Fibrinogen (184-400) mg/dl D-Dimer (0-500) ug/L FEU Factor VIII Activity POC Sodium (135-144) mmol/L Sodium 140 (136-145) mmol/L POC Potassium (3.3-5.0) mmol/L Potassium 6.8 H* POC Chloride (101-112) mmol/L Chloride 104 (98-107) mmol/L Carbon Dioxide 20 L (21-32) mmol/L POC Total CO2 (24-31) mmol/L Anion Gap 16 H (3-11) POC Anion Gap (16-25) mmol/L POC BUN (7-18) mg/dl BUN 72 H (6-23) mg/dl Creatinine 2.99 H (0.6-1.4) mg/dl POC Creatinine (0.6-1.3) mg/dl Est Cr Clr Drug Dosing 20.3 Est GFR ( Amer) 20.9 ml/min Est GFR (Non-Af Amer) 18.0 ml/min BUN/Creatinine Ratio 24.1 H (10-20) Glucose 43 L* (70-99(Fasting)) mg/dl POC Glucose 154 H (70-99) mg/dl POC Glucose (other) (70-99) mg/dl Calcium 9.4 (8.6-10.3) mg/dl POC Ioniz Calcium Rossi (1.12-1.32) mmol/l Phosphorus 4.3 (2.5-4.9) mg/dl Magnesium 2.3 (1.7-2.4) mg/dl Total Bilirubin 1.9 H (0.2-1.0) mg/dl AST 238 H ALT 144 H (7-52) U/L Alkaline Phosphatase 135 H (34-104) U/L Ammonia (18-72) umol/L Lactate Dehydrogenase Total Creatine Kinase (30-223) U/L Troponin I High Sens (0-20) pg/ml B-Natriuretic Peptide (0-100) pg/ml Total Protein 6.4 (6.0-8.3) gm/dl Albumin 3.6 (3.4-5.0) gm/dl Globulin 2.8 (2.5-4.0) gm/dl Albumin/Globulin Ratio 1.3 (0.9-2) Lipase (11-82) U/L TSH (0.300-4.500) uIu/ml Free T4 (0.61-1.60) ng/dl Urine Color Urine Appearance (Clear) Urine pH (4.5-7.5) Ur Specific [place] (1.000-1.030) Urine Protein (Negative) Urine Glucose (UA) (Negative) Urine Ketones (Negative) Urine Blood (Negative) Urine Nitrite (Negative) Urine Bilirubin (Negative) Urine Urobilinogen (Negative) Ur Leukocyte Esterase (Negative) Urine WBC (Auto) (0-5) /hpf Urine RBC (Auto) (0-2) /hpf U Hyaline Cast (Auto) (0-2) /lpf U Epithel Cells (Auto) (0-2) /hpf Urine Bacteria (Auto) (None Seen) Hyaline Casts (None Presnt) /lpf Granular Casts (None Prsent) /lpf Acetaminophen (10-30) ug/ml Anaplasma Smear See Comment Babesia Smear See Comment Babesia microti DNA PCR Lyme Disease Screen Positive H (Negative) Lyme Tier 2 IgG Confirm Positive H (Negative) Lyme Tier 2 IgM Confirm Negative (Negative) Hepatitis A IgM Ab Hep Bs Antigen (Negative) Hep B Core IgM Ab Hepatitis C Antibody (Negative) Blood Parasites ID Blood Type Antibody Screen 01/17/24 01/17/24 01/17/24 Range/Units 21:08 18:11 18:02 WBC (4.8-10.8) K/ul RBC (4.70-6.10) M/uL Hgb (14.0-18.0) g/dl POC Hgb (14.0-18.0) g/dl Hct (42.0-52.0) % POC Hct (42-52) % MCV (80.0-100.0) fL MCH (25.0-34.0) pg MCHC (32.0-36.0) g/dL RDW Std Deviation (36.4-46.3) fL RDW Coeff of [place] (11.5-14.5) % Plt Count (130-400) K/uL MPV (9.4-12.4) fL Immature Gran % (Auto) % Neut % (Auto) % Lymph % (Auto) % [place] % (Auto) % Eos % (Auto) % Baso % (Auto) % Reticulocyte % (Auto) (0.50-2.00) % Neut # (Auto) (1.40-6.50) K/uL Lymph # (Auto) (1.20-3.40) K/uL [place] # (Auto) (0.11-0.59) K/uL Eos # (Auto) (0.00-0.50) K/uL Baso # (Auto) (0.00-0.20) K/uL Reticulocyte # (0.020-0.100) 10^6/uL Immature Gran # (Auto) (0.01-0.20) K/uL Absolute Nucleated RBC (0.00-0.12) K/uL Nucleated RBC % (auto) % Neutrophils % (Manual) Band Neutrophils % Lymphocytes % (Manual) Prolymphocyte % Reactive Lymphs % (Man) Monocytes % (Manual) Eosinophils % (Manual) Basophils % (Manual) Metamyelocytes % (Man) Myelocytes % (Man) Promyelocytes % (Man) Blast Cells % (Manual) Plasma Cell % (Manual) Other Cells % Nucleated RBC % Neutrophils # (Manual) Band Neutrophils # Total Absolute Neuts Lymphocytes # (Manual) Prolymphocyte # Reactive Lymphs # Total Abs Lymphocytes Monocytes # (Manual) Eosinophils # (Manual) Basophils # (Manual) Metamyelocytes # (Man) Myelocytes # (Manual) Promyelocytes # (Man) Blast Cells # (Man) Plasma Cell # (Manual) Other Cells # Nucleated RBCs # (Man) Hypersegmented Neuts Hyposegmented Neuts Hypogranular Neuts Large Granular Lymphs # Lrg Granular Lymphs Hairy Cells Smudge Cells Toxic Granulation Toxic Vacuolation Dohle Bodies Ricardo Rods Platelet Estimate (Normal) Hypogranular Platelets Giant Platelets Platelet Satelliting RBC Morphology Polychromasia Hypochromasia Poikilocytosis Basophilic Stippling Anisocytosis Microcytosis Macrocytosis Spherocytes Pappenheimer Bodies Sickle Cells Target Cells Tear Drop Cells Ovalocytes Stomatocytes Buenrostro-Groton Bodies Echinocytes Acanthocytes (Spur) Rouleaux RBC Agglutinates Schistocytes Peripher Smr Path Cons Sezary Cell Haptoglobin PT INR APTT (21-31) Seconds PTT Ratio Fibrinogen (184-400) mg/dl D-Dimer (0-500) ug/L FEU Factor VIII Activity POC Sodium (135-144) mmol/L Sodium 138 (136-145) mmol/L POC Potassium (3.3-5.0) mmol/L Potassium 6.1 H* POC Chloride (101-112) mmol/L Chloride 103 (98-107) mmol/L Carbon Dioxide 19 L (21-32) mmol/L POC Total CO2 (24-31) mmol/L Anion Gap 16 H (3-11) POC Anion Gap (16-25) mmol/L POC BUN (7-18) mg/dl BUN 68 H (6-23) mg/dl Creatinine 2.94 H (0.6-1.4) mg/dl POC Creatinine (0.6-1.3) mg/dl Est Cr Clr Drug Dosing 20.7 Est GFR ( Amer) 21.3 ml/min Est GFR (Non-Af Amer) 18.4 ml/min BUN/Creatinine Ratio 23.1 H (10-20) Glucose 72 (70-99(Fasting)) mg/dl POC Glucose (70-99) mg/dl POC Glucose (other) (70-99) mg/dl Calcium 10.0 (8.6-10.3) mg/dl POC Ioniz Calcium Rossi (1.12-1.32) mmol/l Phosphorus (2.5-4.9) mg/dl Magnesium (1.7-2.4) mg/dl Total Bilirubin (0.2-1.0) mg/dl AST ALT (7-52) U/L Alkaline Phosphatase (34-104) U/L Ammonia (18-72) umol/L Lactate Dehydrogenase Total Creatine Kinase (30-223) U/L Troponin I High Sens 78.2 H* Cancelled (0-20) pg/ml B-Natriuretic Peptide 3599 H (0-100) pg/ml Total Protein (6.0-8.3) gm/dl Albumin (3.4-5.0) gm/dl Globulin (2.5-4.0) gm/dl Albumin/Globulin Ratio (0.9-2) Lipase (11-82) U/L TSH (0.300-4.500) uIu/ml Free T4 (0.61-1.60) ng/dl Urine Color Yellow Urine Appearance Cloudy A (Clear) Urine pH 5.5 (4.5-7.5) Ur Specific [place] 1.013 (1.000-1.030) Urine Protein 2+ H (Negative) Urine Glucose (UA) Negative (Negative) Urine Ketones Negative (Negative) Urine Blood 3+ H (Negative) Urine Nitrite Negative (Negative) Urine Bilirubin Negative (Negative) Urine Urobilinogen Negative (Negative) Ur Leukocyte Esterase 2+ H (Negative) Urine WBC (Auto) >50 H (0-5) /hpf Urine RBC (Auto) >20 H (0-2) /hpf U Hyaline Cast (Auto) >20 H (0-2) /lpf U Epithel Cells (Auto) 6-10 H (0-2) /hpf Urine Bacteria (Auto) 4+ H (None Seen) Hyaline Casts Present A (None Presnt) /lpf Granular Casts Present A (None Prsent) /lpf Acetaminophen (10-30) ug/ml Anaplasma Smear Babesia Smear Babesia microti DNA PCR Lyme Disease Screen (Negative) Lyme Tier 2 IgG Confirm (Negative) Lyme Tier 2 IgM Confirm (Negative) Hepatitis A IgM Ab Hep Bs Antigen (Negative) Hep B Core IgM Ab Hepatitis C Antibody (Negative) Blood Parasites ID Blood Type Antibody Screen 01/17/24 01/17/24 01/17/24 Range/Units 18:02 15:30 15:24 WBC 7.05 (4.8-10.8) K/ul RBC 3.48 L (4.70-6.10) M/uL Hgb 10.8 L (14.0-18.0) g/dl POC Hgb 12.6 L (14.0-18.0) g/dl Hct 34.4 L (42.0-52.0) % POC Hct 37 L (42-52) % MCV 98.9 (80.0-100.0) fL MCH 31.0 (25.0-34.0) pg MCHC 31.4 L (32.0-36.0) g/dL RDW Std Deviation 61.8 H (36.4-46.3) fL RDW Coeff of [place] 17.4 H (11.5-14.5) % Plt Count 111 L (130-400) K/uL MPV 11.6 (9.4-12.4) fL Immature Gran % (Auto) 0.4 % Neut % (Auto) 71.5 % Lymph % (Auto) 17.4 % [place] % (Auto) 10.1 % Eos % (Auto) 0.3 % Baso % (Auto) 0.3 % Reticulocyte % (Auto) (0.50-2.00) % Neut # (Auto) 5.04 (1.40-6.50) K/uL Lymph # (Auto) 1.23 (1.20-3.40) K/uL [place] # (Auto) 0.71 H (0.11-0.59) K/uL Eos # (Auto) 0.02 (0.00-0.50) K/uL Baso # (Auto) 0.02 (0.00-0.20) K/uL Reticulocyte # (0.020-0.100) 10^6/uL Immature Gran # (Auto) 0.03 (0.01-0.20) K/uL Absolute Nucleated RBC (0.00-0.12) K/uL Nucleated RBC % (auto) % Neutrophils % (Manual) Band Neutrophils % Lymphocytes % (Manual) Prolymphocyte % Reactive Lymphs % (Man) Monocytes % (Manual) Eosinophils % (Manual) Basophils % (Manual) Metamyelocytes % (Man) Myelocytes % (Man) Promyelocytes % (Man) Blast Cells % (Manual) Plasma Cell % (Manual) Other Cells % Nucleated RBC % Neutrophils # (Manual) Band Neutrophils # Total Absolute Neuts Lymphocytes # (Manual) Prolymphocyte # Reactive Lymphs # Total Abs Lymphocytes Monocytes # (Manual) Eosinophils # (Manual) Basophils # (Manual) Metamyelocytes # (Man) Myelocytes # (Manual) Promyelocytes # (Man) Blast Cells # (Man) Plasma Cell # (Manual) Other Cells # Nucleated RBCs # (Man) Hypersegmented Neuts Hyposegmented Neuts Hypogranular Neuts Large Granular Lymphs # Lrg Granular Lymphs Hairy Cells Smudge Cells Toxic Granulation Toxic Vacuolation Dohle Bodies Ricardo Rods Platelet Estimate (Normal) Hypogranular Platelets Giant Platelets Platelet Satelliting RBC Morphology Polychromasia Hypochromasia Poikilocytosis Basophilic Stippling Anisocytosis Microcytosis Macrocytosis Spherocytes Pappenheimer Bodies Sickle Cells Target Cells Tear Drop Cells Ovalocytes Stomatocytes Buenrostro-Groton Bodies Echinocytes Acanthocytes (Spur) Rouleaux RBC Agglutinates Schistocytes Peripher Smr Path Cons Sezary Cell Haptoglobin PT 34.0 H Cancelled INR 3.5 H Cancelled APTT (21-31) Seconds PTT Ratio Fibrinogen (184-400) mg/dl D-Dimer (0-500) ug/L FEU Factor VIII Activity POC Sodium 137 (135-144) mmol/L Sodium 135 L (136-145) mmol/L POC Potassium 6.2 H* (3.3-5.0) mmol/L Potassium 5.7 H TNP POC Chloride 105 (101-112) mmol/L Chloride 101 (98-107) mmol/L Carbon Dioxide 19 L (21-32) mmol/L POC Total CO2 18 L (24-31) mmol/L Anion Gap 15 H (3-11) POC Anion Gap 21.0 (16-25) mmol/L POC BUN 56 H (7-18) mg/dl BUN 67 H (6-23) mg/dl Creatinine 2.93 H (0.6-1.4) mg/dl POC Creatinine 3.1 H (0.6-1.3) mg/dl Est Cr Clr Drug Dosing Not Reportable Est GFR ( Amer) 21.4 ml/min Est GFR (Non-Af Amer) 18.5 ml/min BUN/Creatinine Ratio 22.9 H (10-20) Glucose 134 H (70-99(Fasting)) mg/dl POC Glucose (70-99) mg/dl POC Glucose (other) 142 H (70-99) mg/dl Calcium 9.8 (8.6-10.3) mg/dl POC Ioniz Calcium Rossi 1.08 L (1.12-1.32) mmol/l Phosphorus (2.5-4.9) mg/dl Magnesium 2.4 (1.7-2.4) mg/dl Total Bilirubin 1.7 H (0.2-1.0) mg/dl AST 145 H TNP ALT 92 H (7-52) U/L Alkaline Phosphatase 169 H (34-104) U/L Ammonia (18-72) umol/L Lactate Dehydrogenase Total Creatine Kinase (30-223) U/L Troponin I High Sens 77.9 H* 78.4 H* (0-20) pg/ml B-Natriuretic Peptide (0-100) pg/ml Total Protein 7.5 (6.0-8.3) gm/dl Albumin 4.0 (3.4-5.0) gm/dl Globulin 3.5 (2.5-4.0) gm/dl Albumin/Globulin Ratio 1.1 (0.9-2) Lipase 84 H (11-82) U/L TSH 7.840 H (0.300-4.500) uIu/ml Free T4 0.96 (0.61-1.60) ng/dl Urine Color Urine Appearance (Clear) Urine pH (4.5-7.5) Ur Specific [place] (1.000-1.030) Urine Protein (Negative) Urine Glucose (UA) (Negative) Urine Ketones (Negative) Urine Blood (Negative) Urine Nitrite (Negative) Urine Bilirubin (Negative) Urine Urobilinogen (Negative) Ur Leukocyte Esterase (Negative) Urine WBC (Auto) (0-5) /hpf Urine RBC (Auto) (0-2) /hpf U Hyaline Cast (Auto) (0-2) /lpf U Epithel Cells (Auto) (0-2) /hpf Urine Bacteria (Auto) (None Seen) Hyaline Casts (None Presnt) /lpf Granular Casts (None Prsent) /lpf Acetaminophen (10-30) ug/ml Anaplasma Smear Babesia Smear Babesia microti DNA PCR Lyme Disease Screen (Negative) Lyme Tier 2 IgG Confirm (Negative) Lyme Tier 2 IgM Confirm (Negative) Hepatitis A IgM Ab Hep Bs Antigen (Negative) Hep B Core IgM Ab Hepatitis C Antibody (Negative) Blood Parasites ID Blood Type Antibody Screen Diagnostic Findings Abdomen/Pelvis CT 01/17/24 15:[address] WITHOUT CONTRAST CT DOSE: 2376.69 mGy.cm HISTORY: constipation, pain, weak TECHNIQUE: Multiaxial CT images of the abdomen and pelvis were performed without contrast. A dose lowering technique was utilized adhering to the principles of ALARA. COMPARISON STUDY: Abdomen and pelvis CT 07/21/2023. FINDINGS: Small right and [id number] left pleural effusions. The heart is mildly enlarged. Pacemaker wires are noted. Mild interlobular septal thickening suggestive of mild congestive change/edema. Consolidation within the lower lobes posteriorly favor compressive atelectasis from the pleural effusions. No pneumoperitoneum. No pneumatosis. Subacute to chronic compression deformities at T11 and T12 again noted. There are poststernotomy changes. There is a subacute/healing comminuted and mildly displaced periprosthetic fracture within the residual proximal right femur primarily involving the greater trochanter. This demonstrates up to 1.2 cm of anterior lateral displacement. Posterior decompression within the lumbar spine. Moderate body wall edema is noted. Presacral edema with diffuse mesenteric/retroperitoneal edema and a small amount of ascites. This is new compared to the prior study. The unenhanced liver, spleen, adrenal glands, and pancreas are unremarkable. A few small gallstones again noted. No gallbladder wall thickening. No renal or ureteral stones. No hydronephrosis. No retroperitoneal lymphadenopathy. Moderate calcified plaque within the normal caliber abdominal aorta. Pelvic lymphadenopathy. The bladder is decompressed by a Olivo catheter. Suboptimal evaluation for bowel pathology due to the lack of intravenous and oral contrast. However, there is no evidence for bowel obstruction. Colonic diverticulosis. No evidence for acute diverticulitis. Mild thickening within the ascending colon is likely due to underdistention. Normal appendix. IMPRESSION: 1. Cardiomegaly with mild congestive change and bilateral pleural effusions. 2. Moderate body wall edema with small amount of ascites. This is new compared the prior study. 3. Questionable thickening within the ascending colon is likely due to underdistention. A low-grade colitis is is not excluded. 4. Colonic diverticulosis. No evidence for acute diverticulitis. 5. Cholelithiasis. 6. Subacute to chronic compression deformities at T11 and T12 again noted. 7. There is a subacute/healing comminuted and mildly displaced periprosthetic fracture within the residual proximal right femur primarily involving the greater trochanter. 8. Additional findings as described above. ACT 112: Negative or not required by law. Electronically signed by: Ac Bullock M.D. 01/17/2024 4:[address] 01/17/24 15:12 CT SCAN OF THE BRAIN WITHOUT IV CONTRAST CLINICAL HISTORY: Change in mental status. COMPARISON STUDY: CT of the brain dated 12/24/2023. TECHNIQUE: Unenhanced axial CT scan of the brain is performed from the vertex to the skull base. A dose lowering technique was utilized adhering to the principles of ALARA. FINDINGS: Brain parenchyma: There is age-related involutional change noting advanced con fluent subcortical and periventricular microangiopathic disease. There is no hemorrhage, mass effect, or evidence of acute territorial ischemia by CT criteria. Carrasquillo-white matter differentiation is preserved. No extra-axial fluid collection is seen. Ventricles, sulci, cisterns: Prominent secondary to involutional change. Intracranial vasculature: There is atherosclerotic calcification of the ca vernous carotid and vertebral arteries. Calvarium: Unremarkable. Sinuses and mastoids: The visualized paranasal sinuses are clear. There is a left mastoid effusion. The right mastoid air cells are well pneumatized. Orbits: The bony orbits are grossly intact. There are bilateral ocular lens implants. IMPRESSION: There is no hemorrhage, mass effect, or evidence of acute territorial ischemia by CT criteria. ACT 112: Negative or not required by law. Electronically signed by: Yovani Goff M.D. 01/17/2024 4:36 PM Chest X-Ray 01/17/24 19:02 SINGLE VIEW CHEST CLINICAL HISTORY: Congestive heart failure. FINDINGS: 3 AP, portable, upright chest radiographs are compared to study dated 12/24/2023. The examination is degraded by portable technique and patient rotation. The patient is status post midline sternotomy. A 2-lead cardiac pacemaker is unchanged in position and partially obscures the left lower chest. The heart is enlarged noting atherosclerotic calcification of the thoracic aorta. There is pulmonary vascular congestion. Small pleural effusions are suspected. Atelectasis is noted at the lung bases. No pneumothorax is seen. The skeletal structures are osteopenic. The bony thorax is grossly intact. Degenerative change is noted in the shoulders and spine. IMPRESSION: 1. Cardiomegaly and cardiac pacemaker with pulmonary vascular congestion. 2. Suspect small pleural effusions. ACT 112: Negative or not required by law. Electronically signed by: Yovani Goff M.D. 01/18/2024 2:[address] 01/20/24 04:37 CT head/brain wo con CLINICAL HISTORY: 88 years-old Male with fuchs, eliquis. Acute headache TECHNIQUE: Multiple axial CT images of the head were obtained without contrast. A dose lowering technique was utilized adhering to the principles of ALARA. CT DOSE: 1799.69 mGy.cm COMPARISON: 01/17/2024 FINDINGS: No acute intracranial hemorrhage, midline shift, intracranial mass, hydrocephalus, territorial ischemia or abnormal extra-axial collection. Motion degraded exam. Involutional changes with chronic microvascular ischemic disease. Unchanged subcentimeter left pontine calcification. The calvarium is intact. The paranasal sinuses, mastoid air cells, and middle ear cavities are clear. IMPRESSION: Motion degraded exam. No acute intracranial abnormality identified. ACT 112: Negative or not required by law. The above report was generated using voice recognition software. It may contain grammatical, syntax or spelling errors. Electronically signed by: Viet Whittaker M.D. 01/20/2024 7:03 AM PG Care Time/CCT Total # of Minutes Spent Total Time Spent with Patient: Total time spent is greater than 50% in coordination of care (as documented) at patient's floor/unit and/or counseling patient: I spent 105 minutes overall addressing this case: 15 min in medical data review/discussion with referring provider(s) and/or preparation for the visit 15 min in direct interaction with the patient/exam 45 min in Advance Care Planning/Goals of Care discussions as detailed above in note (must be >16min) 15 min in subsequent review and synthesis of assessment and plan 15 min communicating with other providers regarding the patient's case: Advanced Care Planning 15800 Advanced Care Planning 30 Min 36830 Advanced Care Planning Additional 30 [place] [address] IN/OBS CONSULT LVL 4,60M (25 - SIGNIFICANT, SEPARATELY IDENTIFIABLE ) Patient Type New Medical Decision Making High Complexity Diagnoses Dyspnea and respiratory abnormalities R06.00; R06.89 Generalized pain R52 Weakness generalized R53.1 Advanced care planning/counseling discussion Z71.89 Encounter for hospice care discussion Z71.89 Palliative care by specialist Z51.5 Additional Codes Advanced Care Planning - 19967 Advanced Care Planning 30 Min: 69145 Advanced Care Planning 30 Min ([id number]) Advanced Care Planning - 62843 Advanced Care Planning Additional 30 Min: 56581 Advanced Care Planning Additional 30 Min ([id number])
[2024-01-20] MEDS: HYDROmorphone INJ 1 MG/ML SYRINGE IV PRN (16:26)
--- NOTE | 2024-01-20 17:16 | Hospitalist Progress Note ---
Date of Service January 20, 2024 Assessment & Plan (1) Acute hyperkalemia: (2) KARLENE (acute kidney injury): (3) Delirium: (4) Weakness: (5) HFrEF (heart failure with reduced ejection fraction): (6) Aortic stenosis: (7) DMII (diabetes mellitus, type 2): (8) Tachy-santy syndrome: (9) S/P placement of cardiac pacemaker: (10) Hypertension: (11) BPH with obstruction/lower urinary tract symptoms: (12) Urinary retention: (13) History of depression: (14) History of anemia: (15) Acquired hypothyroidism: Plan Patient is a 88yo M with a PMH of paroxysmal A-fib on Eliquis, HFrEF, history of pacemaker placement, CAD (s/p 3vCABG), HTN, aortic valve stenosis, BPH, depression DM II, SIADH, dyslipidemia, hypothyroidism and other problems listed below who was directed to the ED today due to abnormal outpatient labwork with hyperkalemia and KARLENE. 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 Appreciate input from cardiology, nephrology, gastroenterology and palliative care Discussed extensively with patient's family on multiple occasions. Family understands that patient's is condition is likely not reversible given multiorgan failure and has very poor prognosis Patient is transition to comfort measures only. Patient's family agrees with the plan Continue comfort medications Code Status: DNI/DNR Admission and Anticipated Discharge Date Admission Date: January 17, 2024 Subjective Patient is seen and examined at bedside Discussed with multiple providers and family members today Clinically deteriorating Unable to obtain any history from patient as patient obtunded No distress on exam Review of Systems Review of Systems: Unobtainable due to reduced consciousness Physical Exam Physical Exam: Physical Exam: Vitals signs as noted above General Appearance:Moderately built and nourished, no apparent distress, + Obtunded Head: normocephalic, Atraumatic Eyes: normal inspection, EOMI Neck: supple, Trachea midline Respiratory/Chest: Decreased breath sounds, CTA, No accessory muscle use Cardiovascular: S1, S2, +murmur, +Pacer Abdomen/GI:Soft, Non tender, Bowel sounds present Extremities/Musculoskeletal:normal inspection, Trace edema Neurologic/Psych:Confused, grossly no focal neurological deficits, + decreased hearing, hearing aids Skin: normal color, warm Results & Data Results & Data Vital Signs (Past 12 Hours) Vital Signs Temp Pulse Pulse Resp BP Pulse Ox O2 Del Method 01/20/24 11:11 36.3 C L 90 18 120/81 93 Room Air 01/20/24 10:00 98 H 01/20/24 09:00 36.3 C L 94 H 16 129/84 98 Room Air 01/20/24 08:43 36.2 C L 87 17 111/76 97 Room Air 01/20/24 08:26 36.3 C L 92 H 16 121/79 100 Room Air 01/20/24 07:42 Room Air 01/20/24 07:15 36.3 C L 88 18 115/79 97 Room Air 01/20/24 05:54 88 101/65 01/20/24 05:46 82 99/67 L (6) Aortic stenosis Cardiac valve disease etiology: nonrheumatic Qualified Code(s): I35.0 - Nonrheumatic aortic (valve) stenosis (7) DMII (diabetes mellitus, type 2) Diabetes mellitus assistant terminal manager insulin use: without retirement use Diabetes mellitus complication status: with other specified complication Qualified Code(s): E11.69 - Type 2 diabetes mellitus with other specified complication (10) Hypertension Hypertension type: essential hypertension Qualified Code(s): I10 - Essential (primary) hypertension
--- NOTE | 2024-01-20 20:30 | Electrocardiogram Report ---
Test Reason : Blood Pressure : / mmHG Vent. Rate : 088 BPM Atrial Rate : 098 BPM P-R Int : 000 ms QRS Dur : 170 ms QT Int : 466 ms P-R-T Axes : 000 -43 113 degrees QTc Int : 563 ms Ventricular-paced rhythm with frequent supraventricular complexes and fusion beats Abnormal ECG When compared with ECG of 24-DEC-2023 10:48, Vent. rate has increased BY 21 BPM Confirmed by John Berg ([id number]) on 01/20/2024 8:30:04 PM Referred By: REFERRED SELF Confirmed By:Pedro Berg
--- NOTE | 2024-01-20 20:30 | Electrocardiogram Report ---
Test Reason : Blood Pressure : / mmHG Vent. Rate : 091 BPM Atrial Rate : 072 BPM P-R Int : 000 ms QRS Dur : 104 ms QT Int : 408 ms P-R-T Axes : 000 100 -80 degrees QTc Int : 501 ms Atrial fibrillation with frequent ventricular-paced complexes Rightward axis Anterior infarct , age undetermined T wave abnormality, consider inferior ischemia Prolonged QT Abnormal ECG When compared with ECG of 17-JAN-2024 15:11, (unconfirmed) Vent. rate has increased BY 3 BPM Confirmed by John Berg ([id number]) on 01/20/2024 8:30:21 PM Referred By: REFERRED SELF Confirmed By:Pedro Berg
[2024-01-21 13:58] LABS: Hepatitis A Antibody IgM NON-REACTIVE (NON-REACTIVE); Hepatitis B Core Antibody IgM NON-REACTIVE (NON-REACTIVE)
--- NOTE | 2024-01-21 15:19 | Hospitalist Progress Note ---
Date of Service January 21, 2024 Assessment & Plan (1) Acute hyperkalemia: (2) KARLENE (acute kidney injury): (3) Delirium: (4) Weakness: (5) HFrEF (heart failure with reduced ejection fraction): (6) Aortic stenosis: (7) DMII (diabetes mellitus, type 2): (8) Tachy-santy syndrome: (9) S/P placement of cardiac pacemaker: (10) Hypertension: (11) BPH with obstruction/lower urinary tract symptoms: (12) Urinary retention: (13) History of depression: (14) History of anemia: (15) Acquired hypothyroidism: Plan Patient is a 88yo M with a PMH of paroxysmal A-fib on Eliquis, HFrEF, history of pacemaker placement, CAD (s/p 3vCABG), HTN, aortic valve stenosis, BPH, depression DM II, SIADH, dyslipidemia, hypothyroidism and other problems listed below who was directed to the ED today due to abnormal outpatient labwork with hyperkalemia and KARLENE. 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 Appreciate input from cardiology, nephrology, gastroenterology and palliative care Discussed extensively with patient's family on multiple occasions. Family understands that patient's is condition is likely not reversible given multiorgan failure and has very poor prognosis Currently on comfort measures only. Patient's family agrees with the plan Clinically deteriorating Continue current management Code Status: DNI/DNR Admission and Anticipated Discharge Date Admission Date: January 17, 2024 Subjective Patient is seen and examined at bedside No distress on exam Remains obtunded Discussed with patient's at bedside Review of Systems Review of Systems: Unobtainable due to reduced consciousness Physical Exam Physical Exam: Physical Exam: Vitals signs as noted above General Appearance:Moderately built and nourished, no apparent distress, +Obtunded Head: normocephalic, Atraumatic Eyes: normal inspection, EOMI Neck: supple, Trachea midline Respiratory/Chest: Decreased breath sounds, CTA, No accessory muscle use Cardiovascular: S1, S2, +murmur, +Pacer Abdomen/GI:Soft, Non tender, Bowel sounds present Extremities/Musculoskeletal:normal inspection, Trace edema Neurologic/Psych: + decreased hearing, hearing aids, Obtunded Skin: normal color, warm (6) Aortic stenosis Cardiac valve disease etiology: nonrheumatic Qualified Code(s): I35.0 - Nonrheumatic aortic (valve) stenosis (7) DMII (diabetes mellitus, type 2) Diabetes mellitus termite exterminator helper insulin use: without termite exterminator helper use Diabetes mellitus complication status: with other specified complication Qualified Code(s): E11.69 - Type 2 diabetes mellitus with other specified complication (10) Hypertension Hypertension type: essential hypertension Qualified Code(s): I10 - Essential (primary) hypertension
[2024-01-21 19:12] LABS: Babesia microti DNA Not Detected (Not Detected)
[2024-01-22] MEDS: LORazepam 1 MG in SYRINGE 0.5 ML IV PRN (02:41)
--- NOTE | 2024-01-22 15:20 | Hospitalist Progress Note ---
Date of Service January 22, 2024 Assessment & Plan (1) Acute hyperkalemia: (2) KARLENE (acute kidney injury): (3) Delirium: (4) Weakness: (5) HFrEF (heart failure with reduced ejection fraction): (6) Aortic stenosis: (7) DMII (diabetes mellitus, type 2): (8) Tachy-santy syndrome: (9) S/P placement of cardiac pacemaker: (10) Hypertension: (11) BPH with obstruction/lower urinary tract symptoms: (12) Urinary retention: (13) History of depression: (14) History of anemia: (15) Acquired hypothyroidism: Plan Patient is a 88yo M with a PMH of paroxysmal A-fib on Eliquis, HFrEF, history of pacemaker placement, CAD (s/p 3vCABG), HTN, aortic valve stenosis, BPH, depression DM II, SIADH, dyslipidemia, hypothyroidism and other problems listed below who was directed to the ED today due to abnormal outpatient labwork with hyperkalemia and KARLENE. 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 Appreciate input from cardiology, nephrology, gastroenterology and palliative care Discussed extensively with patient's family on multiple occasions. Family understands that patient's is condition is likely not reversible given multiorgan failure and has very poor prognosis Currently on comfort measures only. Patient's family agrees with the plan Clinically deteriorating No change in medical management today Code Status: DNI/DNR Admission and Anticipated Discharge Date Admission Date: January 17, 2024 Subjective Patient is seen and examined at bedside Obtunded during my encounter Had some distress overnight per family Discussed with patient's family at bedside in detail today Review of Systems Review of Systems: Unobtainable due to reduced consciousness Physical Exam Physical Exam: Physical Exam: Vitals signs as noted above General Appearance:Moderately built and nourished, no apparent distress, +Obtunded Head: normocephalic, Atraumatic Eyes: normal inspection Neck: supple, Trachea midline Respiratory/Chest: Decreased breath sounds, CTA, No accessory muscle use Cardiovascular: S1, S2, +murmur, +Pacer Abdomen/GI:Soft, Non tender, Bowel sounds present Extremities/Musculoskeletal:normal inspection, Trace edema Neurologic/Psych: + decreased hearing, hearing aids, Obtunded Skin: normal color, warm Results & Data Results & Data Vital Signs (Past 12 Hours) Vital Signs O2 Del Method 01/22/24 07:30 Room Air (6) Aortic stenosis Cardiac valve disease etiology: nonrheumatic Qualified Code(s): I35.0 - Nonrheumatic aortic (valve) stenosis (7) DMII (diabetes mellitus, type 2) Diabetes mellitus intermediate frame tender insulin use: without longterm use Diabetes mellitus complication status: with other specified complication Qualified Code(s): E11.69 - Type 2 diabetes mellitus with other specified complication (10) Hypertension Hypertension type: essential hypertension Qualified Code(s): I10 - Essential (primary) hypertension
--- NOTE | 2024-01-22 15:57 | Communication Note ---
Date of Service: January 22, 2024 Patient was noted by family at bedside to cease breathing. On exam patient had no audible heart sounds or breath sounds. No response to sternal rub. Patient was pronounced at 1545. Patient's family at bedside updated.
--- NOTE | 2024-01-22 16:03 | Discharge Summary ---
Date of Service January 22, 2024 Admission HPI Per Admitting Provider This is an 88yo M with a PMH of paroxysmal A-fib on Eliquis, HFrEF, history of pacemaker placement, CAD (s/p 3vCABG), HTN, aortic valve stenosis, BPH, depression DM II, SIADH, dyslipidemia, hypothyroidism and other problems listed below who was directed to the ED today due to abnormal outpatient labwork. History obtained per chart review and family at bedside as patient is altered. Patient was recently admitted to our service from 12/12- for decompensated heart failure treated with IV diuresis. Also noted to have urinary retention during this admission and Olivo catheter was placed with urology follow up later this month. Noted to have some hospital delirium on his suspected underlying mild dementia and was discharged on Risperdal and melatonin to help promote normal sleep-wake cycle. Was discharged to [facility] and was subsequently discharged home from there 10 days ago. Since returning home, family at bedside notes patient seems weak with decreased p.o. intake. Little to no interest in eating. Seems more delirious and has been mumbling, not making sense. Prior to last hospitalization, this is a significant decline per family. Used to have some mild confusion but has remained confused since discharge. Was seen by PCP yesterday and outpatient lab work done yesterday in anticipation of hospital follow-up, and noted to have elevated potassium of 6 and worsening renal function of creatinine 2.93 (baseline Cr ~1.2) and GFR of 21. Directed to ED for further evaluation. Admission Exam Per Admitting Provider General Appearance: WD/WN, vitals as above, appears uncomfortable, delirious, intermittent agitation but redirects easily Head: normocephalic, atraumatic Eyes: normal inspection, PERRL, conjunctivae normal, anicteric sclerae ENT: external ear and nose normal, dry mucous membranes of oropharynx Neck: normal visual inspection, trachea midline, no thyromegaly Respiratory: normal respiratory effort, diminished breath sounds bilaterally. No accessory muscle use Cardiovascular: regular rate, rhythm, + murmur, normal peripheral pulses, 1+ BLE edema Chest: normal inspection of chest Abdomen/GI: normal bowel sounds, soft, nontender, no hepatosplenomegaly : Olivo Extremities/Musculoskeletal: no cyanosis or clubbing, extremities motor strength 5/5 Neurologic: PERRL, EOMI, accommodation nl, no face palsy, no dysarthria, CN's II-XI intact bilaterally and moves all extremities Psychiatric: Alert but not oriented, mumbling, restless Skin: no rashes, normal color, warm/dry Principal Diagnosis Acute kidney injury Hyperkalemia Acute on chronic HFrEF Catheter associated complicated UTI Aortic stenosis Dysphagia Acute Metabolic encephalopathy Discharge Data Allergies Allergy/AdvReac Type Severity Reaction Status Date / Time iodine Allergy Severe DUE TO Verified 12/13/23 15:57 SHELLFISH ALLERGY-IODINATED DYE-UNKNOWN morphine Allergy Severe Anaphylaxis Verified 12/13/23 15:57 shellfish derived Allergy Severe ANAPHYLAXIS Verified 12/13/23 15:57 bee venom protein (honey bee) Allergy Intermediate EXTRA Verified 12/13/23 15:57 SWELLING AT SITES Penicillins Allergy Intermediate RASH Verified 12/13/23 15:57 Consultations 01/17/24 17:28 ED Decision to Admit Stat 01/18/24 08:00 Consult Nephrology Routine 01/19/24 09:27 Consult Gastroenterology Routine 01/20/24 09:13 Consult Palliative Care Routine Procedures Performed Laboratory Results WBC 7.04 K/ul (4.8-10.8) 01/20/24 05:48 RBC 3.19 M/uL (4.70-6.10) L 01/20/24 05:48 Hgb 9.9 g/dl (14.0-18.0) L 01/20/24 05:48 POC Hgb 12.6 g/dl (14.0-18.0) L 01/17/24 15:24 Hct 31.1 % (42.0-52.0) L 01/20/24 05:48 POC Hct 37 % (42-52) L 01/17/24 15:24 MCV 97.5 fL (80.0-100.0) 01/20/24 05:48 MCH 31.0 pg (25.0-34.0) 01/20/24 05:48 MCHC 31.8 g/dL (32.0-36.0) L 01/20/24 05:48 RDW Std Deviation 59.2 fL (36.4-46.3) H 01/20/24 05:48 RDW Coeff of Geronimo 16.8 % (11.5-14.5) H 01/20/24 05:48 Plt Count 68 K/uL (130-400) L 01/20/24 05:48 MPV 12.6 fL (9.4-12.4) H 01/20/24 05:48 Immature Gran % (Auto) 0.4 % 01/20/24 05:48 Neut % (Auto) 73.1 % 01/20/24 05:48 Lymph % (Auto) 12.4 % 01/20/24 05:48 Dorado % (Auto) 12.2 % 01/20/24 05:48 Eos % (Auto) 1.8 % 01/20/24 05:48 Baso % (Auto) 0.1 % 01/20/24 05:48 Reticulocyte % (Auto) 2.92 % (0.50-2.00) H 01/20/24 05:48 Reticulocyte % (Auto) Cancelled 01/20/24 05:48 Neut # (Auto) 5.14 K/uL (1.40-6.50) 01/20/24 05:48 Lymph # (Auto) 0.87 K/uL (1.20-3.40) L 01/20/24 05:48 Dorado # (Auto) 0.86 K/uL (0.11-0.59) H 01/20/24 05:48 Eos # (Auto) 0.13 K/uL (0.00-0.50) 01/20/24 05:48 Baso # (Auto) 0.01 K/uL (0.00-0.20) 01/20/24 05:48 Reticulocyte # 0.090 10^6/uL (0.020-0.100) 01/20/24 05:48 Reticulocyte # Cancelled 01/20/24 05:48 Immature Gran # (Auto) 0.03 K/uL (0.01-0.20) 01/20/24 05:48 Absolute Nucleated RBC Cancelled 01/20/24 04:58 Nucleated RBC % (auto) Cancelled 01/20/24 04:58 Neutrophils % (Manual) Cancelled 01/20/24 04:58 Band Neutrophils % Cancelled 01/20/24 04:58 Lymphocytes % (Manual) Cancelled 01/20/24 04:58 Prolymphocyte % Cancelled 01/20/24 04:58 Reactive Lymphs % (Man) Cancelled 01/20/24 04:58 Monocytes % (Manual) Cancelled 01/20/24 04:58 Eosinophils % (Manual) Cancelled 01/20/24 04:58 Basophils % (Manual) Cancelled 01/20/24 04:58 Metamyelocytes % (Man) Cancelled 01/20/24 04:58 Myelocytes % (Man) Cancelled 01/20/24 04:58 Promyelocytes % (Man) Cancelled 01/20/24 04:58 Blast Cells % (Manual) Cancelled 01/20/24 04:58 Plasma Cell % (Manual) Cancelled 01/20/24 04:58 Other Cells % Cancelled 01/20/24 04:58 Nucleated RBC % Cancelled 01/20/24 04:58 Neutrophils # (Manual) Cancelled 01/20/24 04:58 Band Neutrophils # Cancelled 01/20/24 04:58 Total Absolute Neuts Cancelled 01/20/24 04:58 Lymphocytes # (Manual) Cancelled 01/20/24 04:58 Prolymphocyte # Cancelled 01/20/24 04:58 Reactive Lymphs # Cancelled 01/20/24 04:58 Total Abs Lymphocytes Cancelled 01/20/24 04:58 Monocytes # (Manual) Cancelled 01/20/24 04:58 Eosinophils # (Manual) Cancelled 01/20/24 04:58 Basophils # (Manual) Cancelled 01/20/24 04:58 Metamyelocytes # (Man) Cancelled 01/20/24 04:58 Myelocytes # (Manual) Cancelled 01/20/24 04:58 Promyelocytes # (Man) Cancelled 01/20/24 04:58 Blast Cells # (Man) Cancelled 01/20/24 04:58 Plasma Cell # (Manual) Cancelled 01/20/24 04:58 Other Cells # Cancelled 01/20/24 04:58 Nucleated RBCs # (Man) Cancelled 01/20/24 04:58 Hypersegmented Neuts Cancelled 01/20/24 04:58 Hyposegmented Neuts Cancelled 01/20/24 04:58 Hypogranular Neuts Cancelled 01/20/24 04:58 Large Granular Lymphs Cancelled 01/20/24 04:58 # Lrg Granular Lymphs Cancelled 01/20/24 04:58 Hairy Cells Cancelled 01/20/24 04:58 Smudge Cells Cancelled 01/20/24 04:58 Toxic Granulation Cancelled 01/20/24 04:58 Toxic Vacuolation Cancelled 01/20/24 04:58 Dohle Bodies Cancelled 01/20/24 04:58 Ricardo Rods Cancelled 01/20/24 04:58 Platelet Estimate Cancelled 01/20/24 04:58 Hypogranular Platelets Cancelled 01/20/24 04:58 Giant Platelets Cancelled 01/20/24 04:58 Platelet Satelliting Cancelled 01/20/24 04:58 RBC Morphology Cancelled 01/20/24 04:58 Polychromasia 1+ 01/20/24 05:48 Hypochromasia Cancelled 01/20/24 04:58 Poikilocytosis Cancelled 01/20/24 04:58 Basophilic Stippling Cancelled 01/20/24 04:58 Anisocytosis Cancelled 01/20/24 04:58 Microcytosis Cancelled 01/20/24 04:58 Macrocytosis Cancelled 01/20/24 04:58 Spherocytes Cancelled 01/20/24 04:58 Pappenheimer Bodies Cancelled 01/20/24 04:58 Sickle Cells Cancelled 01/20/24 04:58 Target Cells Cancelled 01/20/24 04:58 Tear Drop Cells Cancelled 01/20/24 04:58 Ovalocytes Cancelled 01/20/24 04:58 Stomatocytes Cancelled 01/20/24 04:58 Buenrostro-[place] Bodies Cancelled 01/20/24 04:58 Echinocytes 1+ 01/20/24 05:48 Acanthocytes (Spur) 1+ 01/20/24 05:48 Rouleaux Cancelled 01/20/24 04:58 RBC Agglutinates Cancelled 01/20/24 04:58 Schistocytes Cancelled 01/20/24 04:58 Peripher Smr Path Cons 01/20/24 05:48 Peripher Smr Path Cons Cancelled 01/20/24 05:48 Sezary Cell Cancelled 01/20/24 04:58 PT Cancelled 01/20/24 04:58 INR Cancelled 01/20/24 04:58 APTT Cancelled 01/20/24 04:58 PTT Ratio Cancelled 01/20/24 04:58 Fibrinogen 140 mg/dl (184-400) L 01/20/24 04:54 D-Dimer 2750 ug/L FEU (0-500) H* 01/20/24 04:54 POC Sodium 137 mmol/L (135-144) 01/17/24 15:24 Sodium 143 mmol/L (136-145) 01/20/24 05:48 POC Potassium 6.2 mmol/L (3.3-5.0) H* 01/17/24 15:24 Potassium 4.6 mmol/L (3.5-5.1) 01/20/24 05:48 POC Chloride 105 mmol/L (101-112) 01/17/24 15:24 Chloride 102 mmol/L (98-107) 01/20/24 05:48 Carbon Dioxide 23 mmol/L (21-32) 01/20/24 05:48 POC Total CO2 18 mmol/L (24-31) L 01/17/24 15:24 Anion Gap 18 (3-11) H 01/20/24 05:48 POC Anion Gap 21.0 mmol/L (16-25) 01/17/24 15:24 POC BUN 56 mg/dl (7-18) H 01/17/24 15:24 BUN 91 mg/dl (6-23) H 01/20/24 05:48 Creatinine 3.59 mg/dl (0.6-1.4) H D 01/20/24 05:48 POC Creatinine 3.1 mg/dl (0.6-1.3) H 01/17/24 15:24 Est Cr Clr Drug Dosing 16.7 ml/min 01/20/24 05:48 Est GFR ( Amer) 16.8 ml/min 01/20/24 05:48 Est GFR (Non-Af Amer) 14.5 ml/min 01/20/24 05:48 BUN/Creatinine Ratio 25.3 (10-20) H 01/20/24 05:48 Glucose 115 mg/dl (70-99(Fasting)) H 01/20/24 05:48 POC Glucose 141 mg/dl (70-99) H 01/20/24 11:08 POC Glucose (other) 142 mg/dl (70-99) H 01/17/24 15:24 Calcium 8.8 mg/dl (8.6-10.3) 01/20/24 05:48 POC Ioniz Calcium Rossi 1.08 mmol/l (1.12-1.32) L 01/17/24 15:24 Phosphorus 4.9 mg/dl (2.5-4.9) 01/18/24 15:19 Magnesium 2.3 mg/dl (1.7-2.4) 01/20/24 05:48 Total Bilirubin 1.9 mg/dl (0.2-1.0) H 01/20/24 05:48 AST 429 U/L (13-39) H 01/20/24 05:48 ALT 280 U/L (7-52) H 01/20/24 05:48 Alkaline Phosphatase 182 U/L (34-104) H 01/20/24 05:48 Ammonia 21.0 umol/L (18-72) 01/19/24 16:13 Lactate Dehydrogenase 676 U/L (86-244) H 01/20/24 05:48 Total Creatine Kinase 109 U/L (30-223) 01/20/24 05:48 Troponin I High Sens 78.2 pg/ml (0-20) H* 01/17/24 21:08 B-Natriuretic Peptide 3599 pg/ml (0-100) H 01/17/24 21:08 Total Protein 6.3 gm/dl (6.0-8.3) 01/20/24 05:48 Albumin 3.4 gm/dl (3.4-5.0) 01/20/24 05:48 Globulin 2.9 gm/dl (2.5-4.0) 01/20/24 05:48 Albumin/Globulin Ratio 1.2 (0.9-2) 01/20/24 05:48 Lipase 84 U/L (11-82) H 01/17/24 15:30 TSH 7.840 uIu/ml (0.300-4.500) H 01/17/24 15:30 Free T4 0.96 ng/dl (0.61-1.60) 01/17/24 15:30 Urine Color Yellow 01/17/24 18:11 Urine Appearance Cloudy (Clear) A 01/17/24 18:11 Urine pH 5.5 (4.5-7.5) 01/17/24 18:11 Ur Specific [place] 1.013 (1.000-1.030) 01/17/24 18:11 Urine Protein 2+ (Negative) H 01/17/24 18:11 Urine Glucose (UA) Negative (Negative) 01/17/24 18:11 Urine Ketones Negative (Negative) 01/17/24 18:11 Urine Blood 3+ (Negative) H 01/17/24 18:11 Urine Nitrite Negative (Negative) 01/17/24 18:11 Urine Bilirubin Negative (Negative) 01/17/24 18:11 Urine Urobilinogen Negative (Negative) 01/17/24 18:11 Ur Leukocyte Esterase 2+ (Negative) H 01/17/24 18:11 Urine WBC (Auto) >50 /hpf (0-5) H 01/17/24 18:11 Urine RBC (Auto) >20 /hpf (0-2) H 01/17/24 18:11 U Hyaline Cast (Auto) >20 /lpf (0-2) H 01/17/24 18:11 U Epithel Cells (Auto) 6-10 /hpf (0-2) H 01/17/24 18:11 Urine Bacteria (Auto) 4+ (None Seen) H 01/17/24 18:11 Hyaline Casts Present /lpf (None Presnt) A 01/17/24 18:11 Granular Casts Present /lpf (None Prsent) A 01/17/24 18:11 Acetaminophen 13 ug/ml (10-30) 01/20/24 05:55 Anaplasma Smear See Comment 01/18/24 06:56 Babesia Smear See Comment 01/18/24 06:56 Babesia microti DNA PCR Not Detected (Not Detected) 01/18/24 09:00 Lyme Disease Screen Positive (Negative) H 01/18/24 07:02 Lyme Tier 2 IgG Confirm Positive (Negative) H 01/18/24 07:02 Lyme Tier 2 IgM Confirm Negative (Negative) 01/18/24 07:02 Hepatitis A IgM Ab NON-REACTIVE (NON-REACTIVE) 01/19/24 16:13 Hep Bs Antigen Negative (Negative) 01/19/24 16:13 Hep B Core IgM Ab NON-REACTIVE (NON-REACTIVE) 01/19/24 16:13 Hepatitis C Antibody Negative (Negative) 01/19/24 16:13 Blood Parasites ID Cancelled 01/20/24 04:58 Blood Type O Positive 01/20/24 04:58 Antibody Screen NEGATIVE 01/20/24 04:58 Impressions Abdomen/Pelvis CT 01/17/24 15:[address] WITHOUT CONTRAST CT DOSE: 2376.69 mGy.cm HISTORY: constipation, pain, weak TECHNIQUE: Multiaxial CT images of the abdomen and pelvis were performed without contrast. A dose lowering technique was utilized adhering to the principles of ALARA. COMPARISON STUDY: Abdomen and pelvis CT 07/21/2023. FINDINGS: Small right and [id number] left pleural effusions. The heart is mildly enlarged. Pacemaker wires are noted. Mild interlobular septal thickening suggestive of mild congestive change/edema. Consolidation within the lower lobes posteriorly favor compressive atelectasis from the pleural effusions. No pneumoperitoneum. No pneumatosis. Subacute to chronic compression deformities at T11 and T12 again noted. There are poststernotomy changes. There is a subacute/healing comminuted and mildly displaced periprosthetic fracture within the residual proximal right femur primarily involving the greater trochanter. This demonstrates up to 1.2 cm of anterior lateral displacement. Posterior decompression within the lumbar spine. Moderate body wall edema is noted. Presacral edema with diffuse mesenteric/retroperitoneal edema and a small amount of ascites. This is new compared to the prior study. The unenhanced liver, spleen, adrenal glands, and pancreas are unremarkable. A few small gallstones again noted. No gallbladder wall thickening. No renal or ureteral stones. No hydronephrosis. No retroperitoneal lymphadenopathy. Moderate calcified plaque within the normal caliber abdominal aorta. Pelvic lymphadenopathy. The bladder is decompressed by a Olivo catheter. Suboptimal evaluation for bowel pathology due to the lack of intravenous and oral contrast. However, there is no evidence for bowel obstruction. Colonic diverticulosis. No evidence for acute diverticulitis. Mild thickening within the ascending colon is likely due to underdistention. Normal appendix. IMPRESSION: 1. Cardiomegaly with mild congestive change and bilateral pleural effusions. 2. Moderate body wall edema with small amount of ascites. This is new compared the prior study. 3. Questionable thickening within the ascending colon is likely due to underdistention. A low-grade colitis is is not excluded. 4. Colonic diverticulosis. No evidence for acute diverticulitis. 5. Cholelithiasis. 6. Subacute to chronic compression deformities at T11 and T12 again noted. 7. There is a subacute/healing comminuted and mildly displaced periprosthetic fracture within the residual proximal right femur primarily involving the greater trochanter. 8. Additional findings as described above. ACT 112: Negative or not required by law. Electronically signed by: Ac Bullock M.D. 01/17/2024 4:47 PM Chest X-Ray 01/17/24 19:02 SINGLE VIEW CHEST CLINICAL HISTORY: Congestive heart failure. FINDINGS: 3 AP, portable, upright chest radiographs are compared to study dated 12/24/2023. The examination is degraded by portable technique and patient rotation. The patient is status post midline sternotomy. A 2-lead cardiac pacemaker is unchanged in position and partially obscures the left lower chest. The heart is enlarged noting atherosclerotic calcification of the thoracic aorta. There is pulmonary vascular congestion. Small pleural effusions are suspected. Atelectasis is noted at the lung bases. No pneumothorax is seen. The skeletal structures are osteopenic. The bony thorax is grossly intact. Degenerative change is noted in the shoulders and spine. IMPRESSION: 1. Cardiomegaly and cardiac pacemaker with pulmonary vascular congestion. 2. Suspect small pleural effusions. ACT 112: Negative or not required by law. Electronically signed by: Yovani Goff M.D. 01/18/2024 2:[address] 01/20/24 04:37 CT head/brain wo con CLINICAL HISTORY: 88 years-old Male with fuchs, eliquis. Acute headache TECHNIQUE: Multiple axial CT images of the head were obtained without contrast. A dose lowering technique was utilized adhering to the principles of ALARA. CT DOSE: 1799.69 mGy.cm COMPARISON: 01/17/2024 FINDINGS: No acute intracranial hemorrhage, midline shift, intracranial mass, hydrocephalus, territorial ischemia or abnormal extra-axial collection. Motion degraded exam. Involutional changes with chronic microvascular ischemic disease. Unchanged subcentimeter left pontine calcification. The calvarium is intact. The paranasal sinuses, mastoid air cells, and middle ear cavities are clear. IMPRESSION: Motion degraded exam. No acute intracranial abnormality identified. ACT 112: Negative or not required by law. The above report was generated using voice recognition software. It may contain grammatical, syntax or spelling errors. Electronically signed by: Veit Whittaker M.D. 01/20/2024 7:03 AM Ordered Studies 01/17/24 15:12 CT abd pelvis wo con Stat CT head/brain wo con Stat 01/20/24 04:37 CT head/brain wo con Stat Hospital Course (1) Acute hyperkalemia: (2) KARLENE (acute kidney injury): (3) Delirium: (4) Weakness: (5) HFrEF (heart failure with reduced ejection fraction): (6) Aortic stenosis: (7) DMII (diabetes mellitus, type 2): (8) Tachy-santy syndrome: (9) S/P placement of cardiac pacemaker: (10) Hypertension: (11) BPH with obstruction/lower urinary tract symptoms: (12) Urinary retention: (13) History of depression: (14) History of anemia: (15) Acquired hypothyroidism: Plan Patient is a 88yo M with a PMH of paroxysmal A-fib on Eliquis, HFrEF, history of pacemaker placement, CAD (s/p 3vCABG), HTN, aortic valve stenosis, BPH, depression DM II, SIADH, dyslipidemia, hypothyroidism and other problems listed below who was directed to the ED today due to abnormal outpatient labwork with hyperkalemia and KARLENE. 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 Appreciate input from cardiology, nephrology, gastroenterology and palliative care Discussed extensively with patient's family on multiple occasions. Family understands that patient's is condition is likely not reversible given multiorgan failure and has very poor prognosis Currently on comfort measures only. Patient's family agrees with the plan Clinically deteriorating No change in medical management today Patient was noted to have ceased breathing by RN/patient's family. Currently on comfort measures only. Patient was pronounced at 1345 PM. Patient's family updated at bedside. Code Status: DNI/DNR Total Time Total Time Spent Total Time Spent (In Minutes): 34 minutes Discharge Plan Discharge Items Patient Disposition: Discharge Diagnosis: Acute kidney injury Hyperkalemia Acute on chronic HFrEF Catheter associated complicated UTI Aortic stenosis Dysphagia Acute Metabolic encephalopathy Other Date/Time: 01/22/24 15:20
== END 2024-01-22 18:00 | disposition expired | DRG 682 ==
LOC: ED 14:44 → SUATTDRO 17:42 → 2S 17:42 → 3E 01-21 16:41